=== PATIENT | female | born 1965 | race Caucasian/White ===

== ENCOUNTER → 2016-08-10 | Outpatient (CLI) | payer MEDICARE, OTHER ==
--- NOTE | 2016-08-11 10:21 | ECHOF ---
Referral Reason:SOB R06.02 MEASUREMENTS -------- HEIGHT: 151.1 cm WEIGHT: 122.5 kg BP: 157/77 RVIDd: 2.7 cm (< 3.3) IVSd: 1.0 cm (0.6 - 1.1) LVIDd: 3.6 cm (3.9 - 5.3) LVPWd: 1.1 cm (0.6 - 1.1) IVSs: 1.5 cm LVIDs: 2.6 cm LVPWs: 1.3 cm LA Diam: 3.2 cm (2.7 - 3.8) LAESV Index (A-L): 8.78 ml/m Ao Diam: 3.2 cm (2.0 - 3.7) AV Cusp: 1.3 cm (1.5 - 2.6) LA Diam: 2.6 cm (2.7 - 3.8) MV EXCURSION: 16.356 mm (> 18.000) MV EF SLOPE: 59 mm/s (70 - 150) EPSS: 0.7 cm MV E Red: 0.99 m/s MV DecT: 222 ms MV A Red: 0.65 m/s MV E/A Ratio: 1.52 RAP: 5.00 mmHg RVSP: 22.84 mmHg FINDINGS -------- Sinus rhythm. This was a technically adequate study. The left ventricular size is normal. The right ventricle is normal in size. Normal LA size by volume 22+/-6 ml/m2. The right atrium is normal in size. The aortic valve is trileaflet and appears structurally normal. Mild mitral annular calcification present. Mild tricuspid regurgitation present. Right ventricular systolic pressure is normal at < 35 mmHg. Trace/mild (physiologic) pulmonic regurgitation. The aortic root size is normal. Normal inferior vena cava with normal inspiratory collapse consistent with estimated right atrial pressure of 5 mmHg. There is no pericardial effusion. CONCLUSIONS -------- 1. Sinus rhythm. 2. Right ventricular systolic pressure is normal at < 35 mmHg. 3. Trace/mild (physiologic) pulmonic regurgitation. 4. The aortic root size is normal. 5. Normal inferior vena cava with normal inspiratory collapse consistent with estimated right atrial pressure of 5 mmHg. 6. There is no pericardial effusion. 7. This was a technically adequate study. 8. The left ventricular size is normal. 9. The right ventricle is normal in size. 10. Normal LA size by volume 22+/-6 ml/m2. 11. The right atrium is normal in size. 12. The aortic valve is trileaflet and appears structurally normal. 13. Mild mitral annular calcification present. 14. Mild tricuspid regurgitation present. INVOICE CONTROL CLERK: Hannah Savage RDCS
== END | disposition home or self-care (01) ==
LOC: RADECHMAIN 14:25
PROVIDERS: ATTEND Family Medicine
DX: I08.1 Rheumatic disorders of both mitral and tricuspid valves (principal)
CPT/HCPCS: 93306

== ENCOUNTER 2017-01-31 01:56 | Emergency (ER) | payer MEDICARE, OTHER ==
[2017-01-31] MEDS ORDERED: DIPH,PERTUS(ACELL)TETVAC-LF 0.5 ML VIAL IM ONE (02:17)
--- NOTE | 2017-01-31 02:22 | ED ---
General Adult HPI - General Chief complaint: Wound/Laceration Stated complaint: Foot injury Time Seen by Provider: 01/31/17 01:58 Source: EMS, RN notes reviewed Mode of arrival: EMS Limitations: no limitations - History of Present Illness Initial comments: 51-year-old female presents emergency Department chief complaint of left foot bleeding. Patient states she hit her foot earlier today. Patient has a lot of blood cell she thought she should come in. Patient states that the have feeling to the foot so there is no pain. Patient denies any other injuries from the incident. Patient does not recall her last tetanus.Patient denies any recent fever, chills, shortness of breath, chest pain, back pain, abdominal pain , nausea vomiting, numbness or tingling, dysuria or hematuria, constipation or diarrhea, headaches or visual changes, or any other current symptoms. - Related Data Home Medications Medication Instructions Recorded Confirmed Allopurinol [Zyloprim] 300 mg PO DAILY 10/04/14 01/31/17 Cetirizine HCl [Zyrtec] 5 mg PO DAILY 10/04/14 01/31/17 Cholestyramine (with Sugar) 4 gm PO DAILY 10/04/14 01/31/17 [Questran Packet] Hydrochlorothiazide [Hydrodiuril] 12.5 mg PO HS 10/04/14 01/31/17 Liraglutide [Victoza 2-Raul] 1.2 mg SQ WESA 10/04/14 01/31/17 Omeprazole [PriLOSEC] 20 mg PO BID 10/04/14 01/31/17 Potassium Chloride [K-Tab ER] 30 meq PO QAM 10/04/14 01/31/17 Torsemide [Demadex] 20 mg PO BID 10/04/14 01/31/17 valACYclovir [Valtrex] 500 mg PO TID PRN 10/04/14 01/31/17 Acetaminophen Tab [Tylenol] 500 - 1,000 mg PO Q6HR PRN 08/09/15 01/31/17 Calcium Carbonate [Tums] 100 mg PO TID PRN 08/09/15 01/31/17 Fish Oil/Dha/Epa [Fish Oil 1,200 1 cap PO BID 08/09/15 01/31/17 mg Fish Oil] Glucosamine/Chondr Choi A Sod [Osteo 1 tab PO BID 08/09/15 01/31/17 Bi-Flex Caplet] Linagliptin [Tradjenta] 5 mg PO DAILY 08/09/15 01/31/17 Loperamide [Imodium] 2 mg PO QID PRN 08/09/15 01/31/17 Metoprolol Succinate [Toprol XL] 25 mg PO DAILY 08/09/15 01/31/17 Multivitamins, Thera [Multivitamin 1 tab PO DAILY 08/09/15 01/31/17 (formulary)] Naproxen Sodium [Aleve] 220 mg PO DAILY PRN 08/09/15 01/31/17 HYDROcodone/APAP 5-325MG [[place] 1 tab PO BID PRN 12/10/15 01/31/17 5-325] Levofloxacin [Levaquin] 500 mg PO DAILY 12/10/15 01/31/17 Potassium Chloride [K-Tab ER] 20 meq PO HS 12/10/15 01/31/17 glipiZIDE [Glucotrol] 10 mg PO AC-BID 12/10/15 01/31/17 Allergies Allergy/AdvReac Type Severity Reaction Status Date / Time amoxicillin trihydrate Allergy Rash/Hives Verified 12/10/15 18:04 [From Augmentin] ciprofloxacin [From Cipro] Allergy Rash/Hives Verified 12/10/15 18:04 ciprofloxacin HCl Allergy Rash/Hives Verified 12/10/15 18:04 [From Cipro] Latex, Natural Rubber Allergy Anaphylaxis Verified 12/10/15 18:04 midazolam HCl [From Versed] Allergy very Verified 12/10/15 18:04 combative, disoriented nitrofurantoin Allergy Rash/Hives Verified 12/10/15 18:04 macrocrystalline [From Macrodantin] potassium clavulanate Allergy Rash/Hives Verified 12/10/15 18:04 [From Augmentin] Sulfa (Sulfonamide Allergy Rash/Hives Verified 12/10/15 18:04 Antibiotics) vancomycin Allergy Anaphylaxis Verified 12/10/15 18:04 Beef Containing Products AdvReac Diarrhea Verified 12/10/15 18:04 [Beef] sucralose AdvReac Diarrhea Verified 12/10/15 18:04 [From Splenda (sucralose)] Review of Systems ROS Statement: Those systems with pertinent positive or pertinent negative responses have been documented in the HPI. ROS Other: All systems not noted in ROS Statement are negative. Past Medical History Past Medical History: Asthma, Diabetes Mellitus, GERD/Reflux, Musculoskeletal Disorder, Neurologic Disorder, Pneumonia, Renal Disease, Sleep Apnea/CPAP/BIPAP Additional Past Medical History / Comment(s): 08-09-15 admitted with cellulitis of external nose. other pst medical hx includes: hx. 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 Date of last positivie culture/infection: 01/07/2015 MDRO Source:: esbl [email or web address] right leg Past Surgical History: Back Surgery, Bowel Resection, Orthopedic Surgery Additional Past Surgical History / Comment(s): multiple surgeries for hydrocephalus, urostomy x 2, multiple hip,leg, foot surgeries, ankles fused, [facility] shunt, pt stated back sx was to remove spina bifida growth, egd Past Anesthesia/Blood Transfusion Reactions: No Reported Reaction Past Psychological History: No Psychological Hx Reported Smoking Status: Never smoker Past Alcohol Use History: Occasional Past Drug Use History: None Reported - Past Family History Father Family Medical History: Hypertension Additional Family Medical History / Comment(s): gout, heart murmur, rheumatic fever as child, tia Mother Family Medical History: Cancer, Hypertension Additional Family Medical History / Comment(s): interstitial cystitis, breast cancer x2, diet controlled diabetic, hiatal hernia General Exam - General Exam Comments Initial Comments: General: The patient is awake and alert, in no distress, and does not appear acutely ill. Neck: The neck is supple, there is no tenderness. Cardiovascular: There is a regular rate and rhythm. No murmur, rub or gallop is appreciated. Respiratory: Lungs are clear to auscultation, respirations are non-labored, breath sounds are equal. No wheezes, stridor, rales, or rhonchi. Musculoskeletal: Sensation intact with 2+ pulses. Infection. Range of motion of left knee and left ankle with passive range of motion. Patient does appear to have a laceration to the base of the third fourth and fifth digit to the left toes. No tenderness to touch. There is some bleeding. Neurological: CN II-XII intact, There are no obvious motor or sensory deficits. Coordination appears grossly intact. Speech is normal. Skin: Skin is warm and dry and no rashes or lesions are noted. Psychiatric: Normal mood and affect. Limitations: no limitations Course Vital Signs 01/31/17 01/31/17 01:57 03:06 Temperature 99.2 F 98.7 F Pulse Rate 96 81 Respiratory 20 18 Rate Blood Pressure 168/76 145/67 O2 Sat by Pulse 98 98 Oximetry Procedures - Procedures Initial comment: The skin was anesthetized with 1% lidocaine. The laceration was then cleansed with Betadine and irrigated with normal saline. The wound was inspected, and there was no evidence of injury to deep structures. No foreign body was noted in the wound. A total of 3 skin sutures were placed utilizing 4-0 nylon to individually once every lacerations at the base of the third fourth and fifth toe Medical Decision Making - Medical Decision Making 51-year-old female presents for left foot laceration. At this time 1 sutures placed in each laceration to the third fourth and fifth digit. There is cleaned. Tetanus was updated. We discussed care we discussed follow-up with discussed return parameters all questions. Patient stated she understood and she is given the plan. She'll be discharged. - Radiology Data Radiology results: report reviewed, image reviewed Disposition Clinical Impression: Laceration of toe, left Disposition: HOME SELF-CARE Condition: Stable Instructions: Care For Your Stitches (ED), Laceration (ED) Additional Instructions: Please use medication as discussed. Please follow up with family doctor if symptoms have not improved over the next two days. Please return to the emergency room if your symptoms increase or worsen or for any other concerns. Please return to the emergency room in 8-10 days to have sutures removed. Please leave wound covered for the first 24-48 hours and then leave open to air after that time. Please use clean soap and water to clean the suture area to prevent scabbing over the top of your sutures. Please watch for any signs of infection which may include but not limited to increased pain, swelling, redness , fever or chills. Please return to the emergency room if any signs of infection do occur. Please return to the emergency room for any other concerns or complications. Referrals: Barrington Noble DO [Primary Care Provider] - 1-2 days Time of Disposition: 03:34
[2017-01-31 03:07] VITALS: TEMP 98.7
--- NOTE | 2017-01-31 03:32 | XR ---
EXAM: XR Left Foot Complete, 3 or More Views CLINICAL HISTORY: History of clubfoot with pain. TECHNIQUE: Frontal, lateral and oblique views of the left foot. COMPARISON: None. FINDINGS: Bones/joints: Extensive degenerative changes are seen involving predominantly the tarsal bones. Osteopenia is suggested. It is difficult to assess for an acute fracture in the setting. There is no radiographic evidence of an acute fracture in the setting. No dislocation. Soft tissues: Extensive soft tissue swelling overlies the entire foot. No radiopaque foreign body. IMPRESSION: Extensive degenerative changes are seen involving predominantly the tarsal bones. Osteopenia. It is difficult to assess for an acute fracture in the setting, although there is no definitive evidence of fracture. If an occult fracture suspected, radiographs left foot may be obtained in 10-14 days for follow-up. Extensive soft tissue swelling overlies the entire foot.
[2017-01-31 04:00] VITALS: BP 136/69; PULSE 86; RESP 20
== END 2017-01-31 04:00 | disposition home or self-care (01) ==
LOC: EC 01:56
DX: S91.115A Laceration without foreign body of left lesser toe(s) without damage to nail, initial encounter (principal); Z23 Encounter for immunization; J45.909 Unspecified asthma, uncomplicated; E11.9 Type 2 diabetes mellitus without complications; K21.9 Gastro-esophageal reflux disease without esophagitis; M10.9 Gout, unspecified; Z79.84 Long term (current) use of oral hypoglycemic drugs; Z79.899 Other long term (current) drug therapy; Z88.0 Allergy status to penicillin; Z88.1 Allergy status to other antibiotic agents; Z88.2 Allergy status to sulfonamides; Z91.040 Latex allergy status; Z88.8 Allergy status to other drugs, medicaments and biological substances; Z91.018 Allergy to other foods; W22.8XXA Striking against or struck by other objects, initial encounter
CPT/HCPCS: 12001; 90471; 90715; 99283

== ENCOUNTER 2017-02-23 20:12 | Emergency (ER) | payer MEDICARE, OTHER ==
[2017-02-23 20:23] VITALS: RESP 18
--- NOTE | 2017-02-23 20:39 | ED ---
General Adult HPI - General Chief complaint: Fall Stated complaint: Fall Time Seen by Provider: 02/23/17 20:24 Source: EMS, RN notes reviewed Mode of arrival: EMS Limitations: no limitations - History of Present Illness Initial comments: 51 yo female presents to the ER with cc of fall. Patient was trying to transfer from her scooter to her car at [facility] and she lost her footing and fell. Patient states she just her right arm and landed onto her right knee. Patient states she did not hit her head. There is no lightheadedness or dizziness before the fall. Patient states she just continues to have this discomfort so she thought that she should be evaluated. Patient other symptoms at this time. Patient states the pain is moderate worse to movement or touch. She has some signs of the right knee and right ankle. Patient denies any recent fever, chills, shortness of breath, chest pain, back pain, abdominal pain, nausea vomiting, numbness or tingling, dysuria or hematuria, constipation or diarrhea, headaches or visual changes, or any other current symptoms. - Related Data Home Medications Medication Instructions Recorded Confirmed Allopurinol [Zyloprim] 300 mg PO DAILY 10/04/14 02/23/17 Cetirizine HCl [Zyrtec] 5 mg PO DAILY 10/04/14 02/23/17 Cholestyramine (with Sugar) 4 - 8 gm PO DAILY 10/04/14 02/23/17 [Questran Packet] Liraglutide [Victoza 2-Raul] 1.2 mg SQ DAILY 10/04/14 02/23/17 Omeprazole [PriLOSEC] 20 mg PO BID 10/04/14 02/23/17 Potassium Chloride [K-Tab ER] 30 meq PO QAM 10/04/14 02/23/17 Torsemide [Demadex] 20 mg PO BID 10/04/14 02/23/17 valACYclovir [Valtrex] 500 mg PO TID PRN 10/04/14 02/23/17 Acetaminophen Tab [Tylenol] 500 - 1,000 mg PO Q6HR PRN 08/09/15 02/23/17 Calcium Carbonate [Tums] 100 mg PO TID PRN 08/09/15 02/23/17 Fish Oil/Dha/Epa [Fish Oil 1,200 1 cap PO BID 08/09/15 02/23/17 mg Fish Oil] Glucosamine/Chondr Choi A Sod [Osteo 1 tab PO BID 08/09/15 02/23/17 Bi-Flex Caplet] Linagliptin [Tradjenta] 5 mg PO DAILY 08/09/15 02/23/17 Loperamide [Imodium] 2 mg PO QID PRN 08/09/15 02/23/17 Metoprolol Succinate [Toprol XL] 25 mg PO DAILY 08/09/15 02/23/17 Multivitamins, Thera [Multivitamin 1 tab PO DAILY 08/09/15 02/23/17 (formulary)] Naproxen Sodium [Aleve] 220 mg PO DAILY PRN 08/09/15 02/23/17 HYDROcodone/APAP 5-325MG [[place] 1 tab PO BID PRN 12/10/15 02/23/17 5-325] Levofloxacin [Levaquin] 500 mg PO DAILY PRN 12/10/15 02/23/17 Potassium Chloride [K-Tab ER] 20 meq PO HS 12/10/15 02/23/17 Bumetanide 2 mg PO DAILY 02/23/17 02/23/17 LORazepam [Ativan] 0.25 mg PO BID PRN 02/23/17 02/23/17 Lactobacillus Acidophilus 1 tab PO DAILY 02/23/17 02/23/17 [Acidophilus] glipiZIDE [Glucotrol] 10 mg PO AC-BID 02/23/17 02/23/17 Allergies Allergy/AdvReac Type Severity Reaction Status Date / Time amoxicillin trihydrate Allergy Rash/Hives Verified 02/23/17 20:41 [From Augmentin] ciprofloxacin [From Cipro] Allergy Rash/Hives Verified 02/23/17 20:41 ciprofloxacin HCl Allergy Rash/Hives Verified 02/23/17 20:41 [From Cipro] Latex, Natural Rubber Allergy Anaphylaxis Verified 02/23/17 20:41 midazolam HCl [From Versed] Allergy very Verified 02/23/17 20:41 combative, disoriented nitrofurantoin Allergy Rash/Hives Verified 02/23/17 20:41 macrocrystalline [From Macrodantin] potassium clavulanate Allergy Rash/Hives Verified 02/23/17 20:41 [From Augmentin] Sulfa (Sulfonamide Allergy Rash/Hives Verified 02/23/17 20:41 Antibiotics) vancomycin Allergy Anaphylaxis Verified 02/23/17 20:41 Beef Containing Products AdvReac Diarrhea Verified 02/23/17 20:41 [Beef] sucralose AdvReac Diarrhea Verified 02/23/17 20:41 [From Splenda (sucralose)] Review of Systems ROS Statement: Those systems with pertinent positive or pertinent negative responses have been documented in the HPI. ROS Other: All systems not noted in ROS Statement are negative. Past Medical History Past Medical History: Asthma, Diabetes Mellitus, GERD/Reflux, Musculoskeletal Disorder, Neurologic Disorder, Pneumonia, Renal Disease, Sleep Apnea/CPAP/BIPAP Additional Past Medical History / Comment(s): 08-09-15 admitted with cellulitis of external nose. other pst medical hx includes: hx. 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 Date of last positivie culture/infection: 01/07/2015 MDRO Source:: esbl e.coli right leg Past Surgical History: Back Surgery, Bowel Resection, Orthopedic Surgery Additional Past Surgical History / Comment(s): multiple surgeries for hydrocephalus, urostomy x 2, multiple hip,leg, foot surgeries, ankles fused, VA shunt, pt stated back sx was to remove spina bifida growth, egd Past Anesthesia/Blood Transfusion Reactions: No Reported Reaction Past Psychological History: No Psychological Hx Reported Smoking Status: Never smoker Past Alcohol Use History: Occasional Past Drug Use History: None Reported - Past Family History Father Family Medical History: Hypertension Additional Family Medical History / Comment(s): gout, heart murmur, rheumatic fever as child, tia Mother Family Medical History: Cancer, Hypertension Additional Family Medical History / Comment(s): interstitial cystitis, breast cancer x2, diet controlled diabetic, hiatal hernia General Exam - General Exam Comments Initial Comments: General: The patient is awake and alert, in no distress, and does not appear acutely ill. Neck: The neck is supple, there is no tenderness. Cardiovascular: There is a regular rate and rhythm. No murmur, rub or gallop is appreciated. Respiratory: Lungs are clear to auscultation, respirations are non-labored, breath sounds are equal. No wheezes, stridor, rales, or rhonchi. Musculoskeletal: sensation intact with 2+ pulses throughout the right upper and right lower extremity. Patient's range of motion of the right shoulder. Some tenderness patient right elbow and right wrist. Patient does have good range of motion. Patient has tenderness right knee. Due to chronic maladies patient' s range of motion of the knee and ankle are limited there is some associated right ankle swelling noted. No deformity. Neurological: CN II-XII intact, There are no obvious motor or sensory deficits. Coordination appears grossly intact. Speech is normal. Skin: Skin is warm and dry and no rashes or lesions are noted. Psychiatric: Normal mood and affect. Limitations: no limitations Course Vital Signs 02/23/17 20:17 Temperature 97.9 F Pulse Rate 75 Respiratory 18 Rate Blood Pressure 157/94 O2 Sat by Pulse 98 Oximetry Medical Decision Making - Medical Decision Making 51-year-old female presents emergency department with a chief complaint of right lower extremity pain and right upper extremity pain. This time we will get x-rays of the areas. Patient x-rays are reviewed and negative. This time we discussed return parameters and follow up and patient in agreement with plan. pt will be discharged. - Radiology Data Radiology results: report reviewed, image reviewed Disposition Clinical Impression: Sprain of right elbow, Fall, Right wrist sprain, Right knee sprain Disposition: HOME SELF-CARE Condition: Stable Instructions: Fall Prevention for Older Adults (ED), Elbow Sprain (ED) Additional Instructions: Please use medication as discussed. Please follow up with family doctor if symptoms have not improved over the next two days. Please return to the emergency room if your symptoms increase or worsen or for any other concerns. Referrals: Barrington Noble DO [Primary Care Provider] - 1-2 days Time of Disposition: 21:19
--- NOTE | 2017-02-23 21:04 | XR ---
PROCEDURE: XR wrist complete RT DATE AND TIME: 02/23/2017 8:47 PM REFERRING PHYSICIAN: Melanie Blair CLINICAL INDICATION: PHH, Pain after fall TECHNIQUE: 3 views plus dedicated scaphoid view. COMPARISON: None FINDINGS: There is no fracture or malalignment. The soft tissues are unremarkable. IMPRESSION: NO ACUTE PROCESS.
--- NOTE | 2017-02-23 21:05 | XR ---
PROCEDURE: XR elbow complete RT DATE AND TIME: 02/23/2017 8:49 PM REFERRING PHYSICIAN: Melanie Blair CLINICAL INDICATION: PHH, Pain TECHNIQUE: Department protocol. COMPARISON: None FINDINGS: There are prominent osteophytic spurs at all articulations consistent with advanced degenerative ziegler ges. There is no fracture or malalignment. The soft tissues are unremarkable. IMPRESSION: NO ACUTE PROCESS.
--- NOTE | 2017-02-23 21:07 | XR ---
PROCEDURE: XR ankle complete RT DATE AND TIME: 02/23/2017 8:54 PM REFERRING PHYSICIAN: Melanie Blair CLINICAL INDICATION: PHH, Pain TECHNIQUE: Department protocol. COMPARISON: 12/10/2015 FINDINGS: There is pes planus with multifocal osteoarthritis and with associated architectural distortion. There is no fracture or malalignment. The soft tissues are unremarkable. IMPRESSION: NO ACUTE PROCESS.
--- NOTE | 2017-02-23 21:10 | XR ---
PROCEDURE: XR knee complete RT DATE AND TIME: 02/23/2017 8:59 PM REFERRING PHYSICIAN: Melanie Blair CLINICAL INDICATION: PHH, Pain TECHNIQUE: 3 views. COMPARISON: 12/10/2015 FINDINGS: Is redemonstration of the previously seen markedly-advanced bone on bone osteoarthritis dylan nges with associated architectural distortion, and with medial subluxation at the femoral tibial donnie culation. There is no fracture or malalignment. The soft tissues are unremarkable. IMPRESSION: NO ACUTE PROCESS.
[2017-02-23 21:51] VITALS: BP 165/81; PULSE 84; TEMP 98
== END 2017-02-23 21:50 | disposition home or self-care (01) ==
LOC: EC 20:12
DX: S53.401A Unspecified sprain of right elbow, initial encounter (principal); S63.501A Unspecified sprain of right wrist, initial encounter; S83.91XA Sprain of unspecified site of right knee, initial encounter; J45.909 Unspecified asthma, uncomplicated; E11.9 Type 2 diabetes mellitus without complications; K21.9 Gastro-esophageal reflux disease without esophagitis; Z79.84 Long term (current) use of oral hypoglycemic drugs; Z79.899 Other long term (current) drug therapy; Z88.1 Allergy status to other antibiotic agents; Z88.2 Allergy status to sulfonamides; Z88.0 Allergy status to penicillin; Z91.018 Allergy to other foods; Z91.040 Latex allergy status; Z88.8 Allergy status to other drugs, medicaments and biological substances; W01.10XA Fall on same level from slipping, tripping and stumbling with subsequent striking against unspecified object, initial encounter; Y92.89 Other specified places as the place of occurrence of the external cause
CPT/HCPCS: 99283

== ENCOUNTER → 2019-02-23 | Outpatient (CLI) | payer MEDICARE, OTHER ==
--- NOTE | 2019-02-24 07:21 | US ---
EXAMINATION TYPE: US thyroid st tissue head/neck DATE OF EXAM: 02/23/2019 COMPARISON: NONE CLINICAL HISTORY: M54.82 L NECK PAIN. Patient has atrial ventricular shunt. Order states attention to shunt. Office called, spoke with Shirin, explained that we don't evaluate renny nts with ultrasound at this facility. Shirin spoke with , technologist directed to scan inferior mas toid area at patients area of pain. TECHNIQUE/FINDINGS: Targeted and color and grayscale imaging was performed inferior to the left masto id air cells in the patient's area of neck pain. At this location No solid or cystic mass is evident. No fluid collection is seen. No soft tissue swelling. The patient 's known atrial ventricular shunt is not visualized. IMPRESSION: No suspicious abnormality inferior to the left mastoid air cells in the area of the otoniel ent's pain. The known intraventricular shunt is not seen. Calcifications or discontinuity could be ev aluated with soft tissue neck x-ray. If there is concern for mastoiditis CT of the internal auditory canal could assess for otomastoiditis.
== END | disposition home or self-care (01) ==
LOC: RADUSWWP 16:06
PROVIDERS: ATTEND Family Medicine
DX: M54.2 Cervicalgia (principal)
CPT/HCPCS: 76536

== ENCOUNTER → 2020-01-25 | Outpatient (CLI) | payer MEDICARE, OTHER ==
--- NOTE | 2020-01-31 12:24 | P.ARTDOP ---
Arterial Doppler LOWER EXTREMITY ARTERIAL DOPPLER: DATE OF SERVICE: 01/25/2020 Reason for study: Decreased pulses. Doppler waveforms: Multiphasic but blunted throughout. Pulse volume recording: []. Pressure gradients: Below the knee bilaterally. Ankle-brachial indices: 0.84 on the right and 0.89 on the left. 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
== END | disposition home or self-care (01) ==
LOC: RADUSWWP 12:53
PROVIDERS: ATTEND Podiatrist Foot & Ankle Surgery
DX: I73.9 Peripheral vascular disease, unspecified (principal)
CPT/HCPCS: 93923

== ENCOUNTER → 2020-03-19 | Outpatient (CLI) | payer MEDICARE, OTHER ==
--- NOTE | 2020-03-19 16:29 | CT ---
EXAMINATION TYPE: CT brain wo con DATE OF EXAM: 03/19/2020 COMPARISON: 11/16/2014 INDICATION: eval of shunt DLP: 1133.3 mGycm, Automated exposure control for dose reduction was used. CONTRAST: None CT of the brain is performed utilizing 3 mm thick sections through the posterior fossa and 3 mm thick sections through the remaining calvarium. Study is performed within 24 hours of arrival to the hosp [facility]. No abnormal hyperdensity is present to suggest an acute intracranial hemorrhage. No mass lesion is evident. No acute infarcts are evident. There is an extra-axial collection with moderate impression on the adjacent brain within the left par ietal-occipital region. This was present previously and appears stable. There are some calcifications within this region. There is mild extradural collection along the left frontal and parietal regions better visualized from comparison. Mild extra-axial collection is again evident on the right. These e xtra-axial collections are diminished in density compared to the prior study. Shunt catheters are present. The catheter entering on the left posterior parietal region crosses midl ine with the tip near the right lateral ventricle. The second catheter entering from the posterior la teral right region has tip located near the midline of the suprasellar cistern region. These catheter s are stable in position from comparison. No temporal horn dilatation is evident. There is prominence of the posterior horns lateral ventricles right more so than left which is stable from comparison. Third ventricle is midline without dilatati on. The anterior horns of the lateral ventricles are not dilated. No temporal horn dilatation is evid ent. Paranasal sinuses and mastoid air cells within the [id number] are clear. IMPRESSIONS: 1. Shunt catheter positioning appears stable from comparison of 11/16/2014. 2. Extra-axial collections again evident and stable from comparison. 3. The ventricles and sulci appears stable without dilatation or effacement.
== END | disposition home or self-care (01) ==
LOC: RADCTMAIN 15:23
PROVIDERS: ATTEND Neurological Surgery
DX: R90.89 Other abnormal findings on diagnostic imaging of central nervous system (principal); G91.0 Communicating hydrocephalus; Z98.2 Presence of cerebrospinal fluid drainage device
CPT/HCPCS: 70450

== ENCOUNTER → 2020-05-09 | Outpatient (CLI) | payer MEDICARE, OTHER ==
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
== END | disposition home or self-care (01) ==
LOC: RADBDWWP 12:22
PROVIDERS: ATTEND Family Medicine
DX: M85.80 Other specified disorders of bone density and structure, unspecified site (principal); Z78.0 Asymptomatic menopausal state
CPT/HCPCS: 77080

== ENCOUNTER → 2021-04-18 | Outpatient (CLI) | payer MEDICARE, OTHER ==
[2021-04-18 11:53] LABS: African American GFR (CKD) >90 (>60 ml/min/1.73 sqM); Blood Urea Nitrogen 29 mg/dL (7-17); Non-African American GFR(CKD) >90 (>60 ml/min/1.73 sqM)
--- NOTE | 2021-04-20 17:18 | CT ---
EXAMINATION TYPE: CT abdomen pelvis w con DATE OF EXAM: 04/18/2021 COMPARISON: NONE HISTORY: 55-year-old female History of bowel obstruction. Alternating diarrhea and constipation. TECHNIQUE: Contiguous axial scanning of the abdomen and pelvis following administration of 100 ml Iso omkar 300 IV contrast. Delayed images through the kidneys and coronal/sagittal reconstructions perform ed. CT DLP: 2009.5 mGycm Automated exposure control for dose reduction was used. FINDINGS: Heart normal size without pericardial effusion. Lung bases clear without pleural effusion. Oral contrast seen within the visualized lower esophagus. Liver borderline in size at 17.2 cm. No focal lesion seen. Portal venous system is patent. No biliary ductal dilatation. Gallbladder, adrenal glands, spleen, and pancreas within normal limits. There is a nonobstructive 1.2 cm calculus at the lower pole of the right kidney. There is severe bilateral hydronephrosis. Corresponding overlying cortical thinning. Post surgical changes along the anterior midline abdominal wall. There is a fat-containing umbilical hernia measuring 6.3 x 5.4 x 4.6 cm extending through a 1.5 cm wide abdominal wall defect. There is a diverticulum urostomy with a right lower quadrant ileostomy. The loop of bowel is prominen tly distended with urine as are both ureters. The length of bowel extending across the pull-through i nto the skin surface does not appear abnormally distended. Bladder appears to have been previously resected. Uterus appears retroverted. There is marked pelvic floor relaxation. There is distention of the uterus, distal sigmoid colon, and rectum below the level of the floor the pelvis. Oral contrast has made its way into the right side of the colon. There is o verall moderate stool in the left side of the colon. Some fixation hardware partially visualized within the proximal third shaft of the left femur. There may be bilateral hip dysplasia changes. Accentuated lower lumbar lordosis is demonstrated. IMPRESSION: 1. ORAL CONTRAST HAS MADE ITS WAY INTO THE RIGHT HEMICOLON. THERE IS EVIDENCE OF PRIOR RIGHT-SIDED MIHAELA WEL SURGERY LIKELY TO SUPPLY THE PATIENT'S DIVERTING UROSTOMY WITH RIGHT LOWER QUADRANT ILEOSTOMY DEM ONSTRATED. THERE IS MODERATE STOOL IN THE LEFT SIDE OF THE COLON BUT NO EVIDENCE FOR OBSTRUCTION. WE NOTE A SEVERE PELVIC FLOOR PROLAPSE CONTAINING THE UTERUS WELL THE DISTAL SIGMOID AND RECTUM. T HIS MAY BE CONTRIBUTING TO THE PATIENT'S BOWEL CHANGES. 2. SEVERE BILATERAL HYDRONEPHROSIS. CORTICAL THINNING COMPATIBLE WITH THE DEVELOPMENT OF ASSOCIATED C HRONIC KIDNEY DISEASE. GIVEN THE BILATERAL HYDROURETER AND PROMINENT URINE DISTENTION OF THE BOWEL LO OP PRIOR TO THE UROSTOMY, CONSIDER A STRICTURE ALONG THE COURSE OF THE URINARY TRACT. 3. INCIDENTAL NONOBSTRUCTIVE 1.2 CM RIGHT LOWER POLE RENAL CALCULUS. 4. FATTY UMBILICAL HERNIA MEASURING 6.3 CM WIDE.
== END | disposition home or self-care (01) ==
LOC: RADCTMAIN 11:01
PROVIDERS: ATTEND Family Medicine
DX: N20.0 Calculus of kidney (principal); N18.9 Chronic kidney disease, unspecified; K42.9 Umbilical hernia without obstruction or gangrene
CPT/HCPCS: 82565; 84520; 74177; 36415; Q9967 ×2

== ENCOUNTER → 2021-08-07 | Outpatient (CLI) | payer MEDICARE, OTHER ==
[2021-08-07 23:56] LABS: ALT 13 U/L (8-44); AST 17 U/L (13-35); African American GFR (CKD) 114.4 (60.0-200.0); Albumin 3.7 g/dL (3.8-4.9); Albumin/Globulin Ratio 0.92 (1.60-3.17); Alkaline Phosphatase 165 U/L (41-126); BUN/Creat Ratio 31.06 Ratio (12.00-20.00); Blood Urea Nitrogen 21.4 mg/dL (9.0-27.0); Calcium 9.4 mg/dL (8.7-10.3); Carbon Dioxide 24.7 mmol/L (20.0-27.5); Chloride 105 mmol/L (96-109); Chol/HDL Ratio 3.41 Ratio; Glucose 77 mg/dL (70-110); LDL Cholesterol,Calculated 85.6 mg/dL (0.0-131.0); Non-African American GFR(CKD) 98.7 (60.0-200.0); Potassium 3.8 mmol/L (3.5-5.5); Sodium 142 mmol/L (135-145); Total Protein 7.7 g/dL (6.2-8.2)
--- NOTE | 2021-08-08 12:39 | ECHOF ---
Referral Reason:R60.9 Edema MEASUREMENTS -------- HEIGHT: 132.1 cm WEIGHT: 127.0 kg BP: RVIDd: 2.4 cm (< 3.3) IVSd: 1.2 cm (0.6 - 1.1) LVIDd: 4.4 cm (3.9 - 5.3) LVPWd: 1.1 cm (0.6 - 1.1) IVSs: 1.8 cm LVIDs: 3.3 cm LVPWs: 1.4 cm LA Diam: 4.0 cm (2.7 - 3.8) LAESV Index (A-L): 17.65 ml/m Ao Diam: 3.1 cm (2.0 - 3.7) AV Cusp: 1.4 cm (1.5 - 2.6) MV EXCURSION: 16.721 mm (> 18.000) MV EF SLOPE: 52 mm/s (70 - 150) EPSS: 0.2 cm MV E Red: 0.62 m/s MV DecT: 184 ms MV A Red: 0.63 m/s MV E/A Ratio: 0.99 RAP: 5.00 mmHg RVSP: 26.18 mmHg FINDINGS -------- Sinus rhythm. This was a technically adequate study. Morbid Obesity The left ventricular size is normal. There is borderline concentric left ventricular hypertrophy. Overall left ventricular systolic function is low-normal with, an EF between 50 - 55 %. The diasto lic filling pattern is normal for the age of the patient 9.39. The right ventricle is normal in size. Normal LA size by volume 22+/-6 ml/m2. The right atrial size is normal. There is mild aortic valve sclerosis. Mild mitral annular calcification present. Mild mitral regurgitation is present. The tricuspid valve appears structurally normal. Mild tricuspid regurgitation present. Right vent ricular systolic pressure is normal at < 35 mmHg. The right ventricular systolic pressure, as measu red by Doppler, is 26.18mmHg. There is no pulmonic regurgitation present. The aortic root size is normal. There is no pericardial effusion. CONCLUSIONS -------- 1. Morbid Obesity 2. There is borderline concentric left ventricular hypertrophy. 3. Overall left ventricular systolic function is low-normal with, an EF between 50 - 55 %. 4. There is mild aortic valve sclerosis. 5. Mild mitral regurgitation is present. 6. There is no pericardial effusion. HEALTH CARE MARKETING MANAGER: Radha Whitt RDCS
== END | disposition home or self-care (01) ==
LOC: RADECHMAIN 13:48
PROVIDERS: ATTEND Internal Medicine Nephrology
DX: E11.65 Type 2 diabetes mellitus with hyperglycemia (principal); E66.01 Morbid (severe) obesity due to excess calories; I08.0 Rheumatic disorders of both mitral and aortic valves; E55.9 Vitamin D deficiency, unspecified
CPT/HCPCS: 80053; 80061; 82306; 83036; 93306

== ENCOUNTER → 2021-09-11 | Outpatient (CLI) | payer MEDICARE, OTHER ==
--- NOTE | 2021-09-11 16:26 | NM ---
EXAMINATION TYPE: NM renal flow and function DATE OF EXAM: 09/11/2021 COMPARISON: NONE HISTORY: Renal flow and function Following administration of 8.8 mCi Tc99m MAG3. Immediate images post injection. FINDINGS: Left: 46.4 %. Right: 53.6 %. Max renal flow left: 28 minutes. Max renal flow right: 53.6 minutes. Satisfactory accumulation of radiotracer within both renal collecting systems. T 1/2 left: Undeterminable minutes. T 1/2 right: Undeterminable minutes. FINDINGS: Abnormal renal excretion curves bilaterally. IMPRESSION: 1. Nearly symmetric excretion with 46% left 54% on right. 2. Abnormal renal excretion curves bilateral.
== END | disposition home or self-care (01) ==
LOC: RADNMMAIN 13:01
PROVIDERS: ATTEND Urology
DX: R94.4 Abnormal results of kidney function studies (principal)
CPT/HCPCS: 78707; A9562

== ENCOUNTER → 2021-12-24 | Outpatient (CLI) | payer MEDICARE, OTHER | END | disposition home or self-care (01) | LOC: LABWHC1 16:03 | PROVIDERS: ATTEND Family Medicine | DX: E11.65 Type 2 diabetes mellitus with hyperglycemia (principal) | CPT/HCPCS: 36415; 83036 ==

== ENCOUNTER 2022-04-23 02:53 | Inpatient (IN) | payer MEDICARE, OTHER ==
[2022-04-23] MEDS ORDERED: SODIUM CHLORIDE 0.9% 1,000 ML IV STA (03:29)
[2022-04-23 04:14] LABS: ALT 20 U/L (4-34); AST 21 U/L (14-36); African American GFR (CKD) >90 (>60 ml/min/1.73 sqM); Albumin 3.6 g/dL (3.5-5.0); Alkaline Phosphatase 140 U/L (38-126); Anion Gap 12 mmol/L; Blood Urea Nitrogen 23 mg/dL (7-17); Calcium 8.5 mg/dL (8.4-10.2); Carbon Dioxide 17 mmol/L (22-30); Chloride 111 mmol/L (98-107); Glucose 132 mg/dL (74-99); Non-African American GFR(CKD) >90 (>60 ml/min/1.73 sqM); Potassium 4.3 mmol/L (3.5-5.1); Sodium 140 mmol/L (137-145); Total Bilirubin 0.4 mg/dL (0.2-1.3); Total Protein 7.1 g/dL (6.3-8.2)
--- NOTE | 2022-04-23 04:19 | ED ---
General Adult HPI - General Chief complaint: Nausea/Vomiting/Diarrhea Stated complaint: Dehydration Time Seen by Provider: 04/23/22 02:55 Source: patient, EMS, RN notes reviewed, old records reviewed Mode of arrival: EMS Limitations: no limitations - History of Present Illness Initial comments: 56-year-old female presenting for evaluation of dehydration, diarrhea and current UTI. Patient has history of urostomy and is currently taking Levaquin for urinary tract infection. She developed some diarrhea and has generally not felt well. No vomiting. No fever. - Related Data Home Medications Medication Instructions Recorded Confirmed Cetirizine HCl [Zyrtec] 5 mg PO DAILY 10/04/14 11/09/17 Cholestyramine (with Sugar) 4 - 8 gm PO DAILY 10/04/14 11/09/17 [Questran Packet] Liraglutide [Victoza 2-Raul] 1.2 mg SQ DAILY 10/04/14 11/09/17 Omeprazole [PriLOSEC] 20 mg PO BID 10/04/14 11/09/17 Potassium Chloride [K-Tab ER] 30 meq PO QAM 10/04/14 11/09/17 Torsemide [Demadex] 20 mg PO BID 10/04/14 11/09/17 allopurinoL [Zyloprim] 300 mg PO DAILY 10/04/14 11/09/17 Acetaminophen Tab [Tylenol] 500 - 1,000 mg PO Q6HR PRN 08/09/15 11/09/17 Calcium Carbonate [Tums] 100 mg PO TID PRN 08/09/15 11/09/17 Fish Oil/Dha/Epa [Fish Oil 1,200 1 cap PO BID 08/09/15 11/09/17 mg Fish Oil] Glucosamine/Chondr Choi A Sod [Osteo 1 tab PO BID 08/09/15 11/09/17 Bi-Flex Caplet] Linagliptin [Tradjenta] 5 mg PO DAILY 08/09/15 11/09/17 Loperamide [Imodium] 2 mg PO QID PRN 08/09/15 11/09/17 Metoprolol Succinate [Toprol XL] 25 mg PO DAILY 08/09/15 11/09/17 Multivitamins, Thera [Multivitamin 1 tab PO DAILY 08/09/15 11/09/17 (formulary)] Naproxen Sodium [Aleve] 220 mg PO DAILY PRN 08/09/15 11/09/17 HYDROcodone/APAP 5-325MG [[place] 1 tab PO BID PRN 12/10/15 11/09/17 5-325] Potassium Chloride [K-Tab ER] 20 meq PO HS 12/10/15 11/09/17 Bumetanide 2 mg PO DAILY 02/23/17 11/09/17 Lactobacillus Acidophilus 1 tab PO DAILY 02/23/17 11/09/17 [Acidophilus] glipiZIDE [Glucotrol] 10 mg PO AC-BID 02/23/17 11/09/17 Allergies Allergy/AdvReac Type Severity Reaction Status Date / Time amoxicillin trihydrate Allergy Rash/Hives Verified 11/09/17 14:45 [From Augmentin] ciprofloxacin [From Cipro] Allergy Rash/Hives Verified 11/09/17 14:45 ciprofloxacin HCl Allergy Rash/Hives Verified 11/09/17 14:45 [From Cipro] Latex, Natural Rubber Allergy Anaphylaxis Verified 11/09/17 14:45 midazolam HCl [From Versed] Allergy very Verified 11/09/17 14:45 combative, disoriented nitrofurantoin Allergy Rash/Hives Verified 11/09/17 14:45 macrocrystalline [From Macrodantin] potassium clavulanate Allergy Rash/Hives Verified 11/09/17 14:45 [From Augmentin] Sulfa (Sulfonamide Allergy Rash/Hives Verified 11/09/17 14:45 Antibiotics) vancomycin Allergy Anaphylaxis Verified 11/09/17 14:45 Beef Containing Products AdvReac Diarrhea Verified 11/09/17 14:45 [Beef] sucralose AdvReac Diarrhea Verified 11/09/17 14:45 [From Splenda (sucralose)] Review of Systems ROS Statement: Those systems with pertinent positive or pertinent negative responses have been documented in the HPI. ROS Other: All systems not noted in ROS Statement are negative. Past Medical History Past Medical History: Asthma, Diabetes Mellitus, GERD/Reflux, Musculoskeletal Disorder, Neurologic Disorder, Pneumonia, Renal Disease, Sleep Apnea/CPAP/BIPAP Additional Past Medical History / Comment(s): 08-09-15 admitted with cellulitis of external nose. other pst medical hx includes: hx. 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, MRSA Date of last positivie culture/infection: 07/07/21 MRSA 01/07/15 ESBL MDRO Source:: MRSA BUTTOCK, ESBL LEG Past Surgical History: Back Surgery, Bowel Resection, Orthopedic Surgery Additional Past Surgical History / Comment(s): multiple surgeries for hy drocephalus, urostomy x 2, multiple hip,leg, foot surgeries, ankles fused, [facility] shunt, pt stated back sx was to remove spina bifida growth, egd Past Anesthesia/Blood Transfusion Reactions: No Reported Reaction Past Psychological History: No Psychological Hx Reported Additional Psychological History / Comment(s): pt lives alone at [facility],gets around by w/ able to stand and pivot and drives. does have visiting nurses wed-,wednesday. Past Alcohol Use History: Occasional Past Drug Use History: None Reported - Past Family History Father Family Medical History: Hypertension Additional Family Medical History / Comment(s): gout, heart murmur, rheumatic fever as child, tia Mother Family Medical History: Cancer, Hypertension Additional Family Medical History / Comment(s): interstitial cystitis, breast cancer x2, diet controlled diabetic, hiatal hernia General Exam Limitations: no limitations General appearance: alert, in no apparent distress Head exam: Present: atraumatic, normocephalic Eye exam: Present: normal appearance, PERRL ENT exam: Present: mucous membranes dry Neck exam: Present: normal inspection. Absent: tenderness, meningismus Respiratory exam: Present: normal lung sounds bilaterally. Absent: respiratory distress, wheezes Cardiovascular Exam: Present: regular rate, normal rhythm GI/Abdominal exam: Present: soft. Absent: distended, tenderness, guarding Neurological exam: Present: alert Psychiatric exam: Present: normal affect, normal mood Skin exam: Present: warm, dry, intact Course Vital Signs 04/23/22 03:05 Temperature 98.2 F Pulse Rate 76 Respiratory 16 Rate Blood Pressure 115/74 O2 Sat by Pulse 100 Oximetry Medical Decision Making - Medical Decision Making 56 yo female with urinary tract infection, being treated with Levaquin. Previous urine cultures do indicate that she had both E. coli and MRSA. These were drug-resistant, patient started on ceftriaxone and clindamycin in the emergency department she has anaphylactic reaction to vancomycin. Urinalysis suggestive of persistent UTI despite oral antibiotics. She will be admitted to the hospital awaiting urine culture, blood culture results. Continued on IV fluids and IV antibiotics. - Lab Data Result diagrams: 04/23/22 03:44 04/23/22 03:44 Lab Results 04/23/22 04/23/22 04/23/22 Range/Units 03:44 03:44 03:44 WBC 5.0 (3.8-10.6) k/uL RBC 4.16 (3.80-5.40) m/uL Hgb 12.5 (11.4-16.0) gm/dL Hct 38.8 (34.0-46.0) % MCV 93.3 (80.0-100.0) fL MCH 30.1 (25.0-35.0) pg MCHC 32.2 (31.0-37.0) g/dL RDW 16.4 H (11.5-15.5) % Plt Count 222 (150-450) k/uL MPV 9.1 Neutrophils % 50 % Lymphocytes % 40 % Monocytes % 7 % Eosinophils % 0 % Basophils % 1 % Neutrophils # 2.5 (1.3-7.7) k/uL Lymphocytes # 2.0 (1.0-4.8) k/uL Monocytes # 0.4 (0-1.0) k/uL Eosinophils # 0.0 (0-0.7) k/uL Basophils # 0.0 (0-0.2) k/uL Hypochromasia Slight Anisocytosis Slight Sodium 140 (137-145) mmol/L Potassium 4.3 (3.5-5.1) mmol/L Chloride 111 H (98-107) mmol/L Carbon Dioxide 17 L (22-30) mmol/L Anion Gap 12 mmol/L BUN 23 H (7-17) mg/dL Creatinine 0.71 (0.52-1.04) mg/dL Est GFR (CKD-EPI)AfAm >90 (>60 ml/min/1.73 sqM) Est GFR (CKD-EPI)NonAf >90 (>60 ml/min/1.73 sqM) Glucose 132 H (74-99) mg/dL Calcium 8.5 (8.4-10.2) mg/dL Total Bilirubin 0.4 (0.2-1.3) mg/dL AST 21 (14-36) U/L ALT 20 (4-34) U/L Alkaline Phosphatase 140 H (38-126) U/L Total Protein 7.1 (6.3-8.2) g/dL Albumin 3.6 (3.5-5.0) g/dL Urine Color Yellow Urine Appearance Turbid H (Clear) Urine pH 7.0 (5.0-8.0) Ur Specific [place] 1.017 (1.001-1.035) Urine Protein 1+ H (Negative) Urine Glucose (UA) Negative (Negative) Urine Ketones Negative (Negative) Urine Blood Moderate H (Negative) Urine Nitrite Positive H (Negative) Urine Bilirubin Negative (Negative) Urine Urobilinogen <2.0 (<2.0) mg/dL Ur Leukocyte Esterase Large H (Negative) Urine RBC 19 H (0-5) /hpf Urine WBC >182 H (0-5) /hpf Urine WBC Clumps Many H (None) /hpf Urine Bacteria Few H (None) /hpf Disposition Clinical Impression: Dehydration, UTI (urinary tract infection) Disposition: ADMITTED IP TO THIS HOSP Condition: Stable Is patient prescribed a controlled substance at d/c from ED?: No Referrals: Barrington Noble DO [Primary Care Provider] - 1-2 days Time of Disposition: 04:50
[2022-04-23 04:20] LABS: Anisocytosis Slight; Basophils % (A) 1 %; Eosinophils % (A) 0 %; HCT 38.8 % (34.0-46.0); HGB 12.5 gm/dL (11.4-16.0); Hypochromasia Slight; Lymphocytes % (A) 40 %; MCH 30.1 pg (25.0-35.0); MCHC 32.2 g/dL (31.0-37.0); MCV 93.3 fL (80.0-100.0); Mean Platelet Volume 9.1; Monocytes # (A) 0.4 k/uL (0-1.0); Monocytes % (A) 7 %; Neutrophils # (A) 2.5 k/uL (1.3-7.7); Neutrophils % (A) 50 %; Platelet Count 222 k/uL (150-450); RBC 4.16 m/uL (3.80-5.40); RDW 16.4 % (11.5-15.5)
[2022-04-23 04:21] LABS: Appearance,Urine Turbid (Clear); Bacteria,Urine Few /hpf; Bilirubin,Urine Negative (Negative); Blood,Urine Moderate (Negative); Color,Urine Yellow; Glucose,Urine (UA) Negative (Negative); Ketones,Urine Negative (Negative); Leukocyte Esterase,Urine Large (Negative); Nitrite,Urine Positive (Negative); Protein,Urine 1+ (Negative); RBC,Urine 19 /hpf (0-5); Specific Gravity,Urine 1.017 (1.001-1.035); Urobilinogen,Urine <2.0 mg/dL (<2.0); WBC,Urine >182 /hpf (0-5)
[2022-04-23] MEDS ORDERED: cefTRIAXone IN SWFI 1,000 MG/10 ML SYRINGE IVP STA (04:34)
[2022-04-23] MEDS ORDERED: CLINDAMYCIN 600 MG in DEXTROSE 5% IN WATER 50 ML IVPB STA ×2 (04:35)
[2022-04-23] MEDS ORDERED: NALOXONE 0.4 MG/ML 1 ML VIAL IV PRN (04:47)
[2022-04-23] MEDS: SODIUM CHLORIDE 0.9% 1,000 ML IV SCH ×2 (05:14→13:40)
[2022-04-23 07:09] LABS: Glucose,Whole Blood 54 mg/dL (70-110)
[2022-04-23 07:33] LABS: Glucose,Whole Blood 57 mg/dL (70-110)
[2022-04-23 07:58] LABS: Glucose,Whole Blood 75 mg/dL (70-110)
[2022-04-23] MEDS ORDERED: DEXTROSE 50% SYRINGE 50 ML IVP PRN ×2 (10:06)
[2022-04-23] MEDS ORDERED: NON FORMULARY DRUG (Fish Oil/Dha/Epa [Fish Oil 1,200 Mg Fish Oil] 1 EACH Capsule) PO SCH (10:15)
[2022-04-23] MEDS ORDERED: NON FORMULARY DRUG (Cranberry Fruit Extract [Cranberry] 500 MG Tablet) PO SCH (10:15)
[2022-04-23] MEDS ORDERED: NON FORMULARY DRUG (Liraglutide [Victoza 2-Pak] 0.6 MG/0.1 ML Ml) SQ SCH (10:15)
[2022-04-23] MEDS ORDERED: NON FORMULARY DRUG (Glucosamine/Chondr Su A Sod [Osteo Bi-Flex Caplet] 1 EACH Tablet) PO SCH (10:15)
[2022-04-23] MEDS ORDERED: INSULIN DETEMIR (LEVEMIR) 100 UNIT/ML SYR SQ SCH (10:30)
[2022-04-23] MEDS: NON FORMULARY DRUG (Methenamine Hippurate [Methenamine Hippurate] 1 GM Tablet) PO SCH ×2 (11:41→21:17)
[2022-04-23] MEDS: NYSTATIN 100,000UNIT/GM CREAM 30 GM TUBE TOPICAL SCH (11:49)
[2022-04-23] MEDS: LORATADINE 10 MG TAB PO SCH (11:50)
[2022-04-23] MEDS: allopurinoL 300 MG TAB PO SCH (11:50)
[2022-04-23] MEDS: MULTIVITAMINS, THERA 1 EACH TAB PO SCH (11:50)
[2022-04-23] MEDS: AMMONIUM LACTATE 12% CREAM 140 GM TUBE TOPICAL SCH (11:50)
[2022-04-23] MEDS: LACTOBACILLUS ACIDOPH & BULGAR 1 EACH PACKET PO SCH (11:50)
[2022-04-23] MEDS: PANTOPRAZOLE 40 MG TABLET PO SCH (11:51)
[2022-04-23 11:55] LABS: Glucose,Whole Blood 103 mg/dL (70-110)
[2022-04-23] MEDS ORDERED: INSULIN ASPART (NovoLOG) 100 UNIT/ML VIAL SQ SCH (12:30)
--- NOTE | 2022-04-23 14:23 | P.HPIM ---
History of Present Illness H&P Date: 04/23/22 This is a pleasant 56-year-old female who recently presented to the emergency department feeling dehydrated and having increased diarrhea and recurrent urinary tract infections. Patient reports she has a urostomy and had been maintained on Levaquin for the past 10 days and was seen and evaluated in an outpatient clinic and given this and instructed to go to the ER although patient refused as she reports she was feeling slightly better from taking antibiotics. Patient reports she has frequent UTIs and follows with Dr. Reynolds in the outpatient setting. Patient has a past medical history of asthma, diabetes mellitus, insulin-dependent, GERD, musculoskeletal disorder, neurologic disord er, and sleep apnea with CPAP, spina bifida and hydrocephalus with Sapphire I malformation history. Patient has had recurrent infections and ESBL along with MRSA of her buttock and leg regions. Patient reports she is wheelchair-bound and lives at home alone and has visiting nurses 4 days weekly in the home. Will consult infectious disease and appreciate input and recommendations this patient does have drug ALLERGIES to antibiotics and has had multiple recurrent infections. Urine cultures have been sent and pending at this time. Labs on admission reveal no white blood count of 5.0, hemoglobin stable at 12.5, sodium is 140, potassium 4.3, BUN 23, creatinine 0.71. Patient was admitted for IV antibiotics and urinary tract infection. Review Of Systems: Constitutional: No fever, no chills, no night sweats. No weight change. Reports increased weakness, fatigue or lethargy. No daytime sleepiness. EENT: No headache. No blurred vision or double vision, no loss of vision. No loss of Hearing, no ringing in the ears, no dizziness. No nasal drainage or congestion. No epistaxis. No sore throat. Lungs: No shortness of breath, cough, no sputum production. No wheezing. Cardiovascular: No chest pain, no lower extremity edema. No palpitations. No paroxysmal nocturnal dyspnea. No orthopnea. No lightheadedness or dizziness. No syncopal episodes. Abdominal: No abdominal pain. No nausea, vomiting. No diarrhea. No constipation. No bloody or tarry stools.. No loss of appetite. Genitourinary: Reports dysuria, increased frequency, urgency. No urinary retention. Reports thick dark urine Musculoskeletal: No myalgias. No muscle weakness, no gait dysfunction, no frequent falls. No back pain. No neck pain. Integumentary: No wounds, no lesions. No rash or pruritus. No unusual bruising. No change in hair or nails. Neurologic: No aphasia. No facial droop. No change in mentation. No head injury. No headache. No paralysis. No paresthesia. Psychiatric: No depression. No anxiety. No mood swings. Endocrine: No abnormal blood sugars. No weight change. No excessive sweating or thirst. No cold intolerance. PHYSICAL EXAMINATION: GENERAL: The patient is alert and oriented x4, Well developed, well nourished. Wheelchair-bound, obese HEENT: Pupils are round and equally reacting to light. EOMI. no scleral icterus. No conjunctival pallor. Normocephalic, atraumatic. No pharyngeal erythema. No thyromegaly. CARDIOVASCULAR: S1 and S2 muffled PULMONARY: diminished breath sounds bilaterally with no wheezing or rhonchi noted. ABDOMEN: soft. Nontender on exam. obese. non-distended, normoactive bowel sounds. No palpable organomegaly. MUSCULOSKELETAL: No joint swelling or deformity. EXTREMITIES: No cyanosis, clubbing, or pedal edema. NEUROLOGICAL: Gross neurological examination did not reveal any focal deficits. SKIN: No rashes. Assessment: Dehydration, secondary to increased diarrhea Diarrhea, possibly gastritis Acute urinary tract infection, present on admission with failed outpatient therapy Past history of MRSA and ESBL of the wounds recurrent urinary tract infections Asthma history, not in exacerbation Diabetes mellitus, type II, insulin-dependent Gastroesophageal reflux disease Musculoskeletal disorder History of spina bifida with hydrocephalus Sapphire I malformation Chronic renal disease Sleep apnea with a CPAP GI prophylaxis DVT prophylaxis Full code Plan: Recommend to continue with current medications and management and will consult infectious disease and appreciate input and recommendations as patient has multiple drug ALLERGIES and has failed outpatient therapy was currently on Levaquin having worsening symptoms. Patient had been going to a clinic and normally follows with Dr. Reynolds in the outpatient setting although unable to get an appointment. Patient is wheelchair-bound and has visiting nurses 4 times weekly. Patient also with a urostomy and has recurrent frequent UTIs. Patient with diabetes recommend Accu-Cheks before meals and at bedtime and will resume home medications. Patient also chronically takes torsemide and will resume and follow-up with repeat labs. Patient with frequent episodes of diarrhea being on antibiotics will obtain a C. diff. Due to multiple complex medical issues, prognosis is guarded. Further recommendations to follow based on the clinical course of the patient. The impression and plan of care has been dictated by Shefali Mccarty, nurse practitioner as directed. Dr. Keny MD I have performed a history and examination and MDM of this patient, discussed the same with the dictator, and agree with the dictator's assessment and plan as written ,documented as a scribe. Based on total visit time, I have performed more than 50% of the visit. Any additional findings or plans will be noted. Past Medical History Past Medical History: Asthma, Diabetes Mellitus, GERD/Reflux, Musculoskeletal Disorder, Neurologic Disorder, Pneumonia, Renal Disease, Sleep Apnea/CPAP/BIPAP Additional Past Medical History / Comment(s): 08-09-15 admitted with cellulitis of external nose. other pst medical hx includes: hx. 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, MRSA Date of last positivie culture/infection: 07/07/21 MRSA 01/07/15 ESBL MDRO Source:: MRSA BUTTOCK, ESBL LEG Past Surgical History: Back Surgery, Bowel Resection, Orthopedic Surgery Additional Past Surgical History / Comment(s): multiple surgeries for hydrocephalus, urostomy x 2, multiple hip,leg, foot surgeries, ankles fused, [facility] shunt, pt stated back sx was to remove spina bifida growth, egd Past Anesthesia/Blood Transfusion Reactions: No Reported Reaction Past Psychological History: No Psychological Hx Reported Additional Psychological History / Comment(s): pt lives alone at [facility],gets around by w/ able to stand and pivot and drives. does have visiting nurses wed-,wednesday. Smoking Status: Never smoker Past Alcohol Use History: None Reported Past Drug Use History: None Reported - Past Family History Father Family Medical History: Hypertension Additional Family Medical History / Comment(s): gout, heart murmur, rheumatic fever as child, tia Mother Family Medical History: Cancer, Hypertension Additional Family Medical History / Comment(s): interstitial cystitis, breast cancer x2, diet controlled diabetic, hiatal hernia Medications and Allergies Home Medications Medication Instructions Recorded Confirmed Type Cetirizine HCl [Zyrtec] 5 mg PO DAILY 10/04/14 04/23/22 History Cholestyramine (with Sugar) 4 - 8 gm PO DIRECTED 10/04/14 04/23/22 History [Questran Packet] Liraglutide [Victoza 2-Raul] 1.8 mg SQ DAILY 10/04/14 04/23/22 History Omeprazole [PriLOSEC] 20 mg PO DAILY 10/04/14 04/23/22 History Torsemide [Demadex] 60 mg PO BID 10/04/14 04/23/22 History allopurinoL [Zyloprim] 300 mg PO DAILY 10/04/14 04/23/22 History Glucosamine/Chondr Choi A Sod [Osteo 1 tab PO DAILY 08/09/15 04/23/22 History Bi-Flex Caplet] Loperamide [Imodium] 1 - 2 mg PO QID PRN 08/09/15 04/23/22 History Metoprolol Succinate [Toprol XL] 25 mg PO HS 08/09/15 04/23/22 History glipiZIDE [Glucotrol] 1.67 - 5 mg PO DAILY PRN 02/23/17 04/23/22 History Ammonium Lactate Cream [Lac-Hydrin 1 applic TOPICAL BID 04/23/22 04/23/22 History 12% Cream] Azithromycin [Zithromax] See Taper PO DIRECTED 04/23/22 04/23/22 History Cranberry Fruit Extract [Cranberry] 500 mg PO DAILY 04/23/22 04/23/22 History Fish Oil/Dha/Epa [Fish Oil 1,200 1 cap PO DAILY 04/23/22 04/23/22 History mg Fish Oil] Insulin Degludec [Tresiba 36 units SQ DAILY 04/23/22 04/23/22 History Flextouch U-100 Pen] Lactobacillus Acidophilus 1 tab PO DAILY 04/23/22 04/23/22 History [Acidophilus] Methenamine Hippurate 1 gm PO BID 04/23/22 04/23/22 History Multivit with Calcium,Iron,Min 1 tab PO DAILY 04/23/22 04/23/22 History [Women's Multivitamin] Nystatin 100,000Unit/gm Cream 1 applic TOPICAL BID 04/23/22 04/23/22 History [Mycostatin Cream] Potassium Chloride [Klor-Con M20] 60 meq PO DIRECTED 04/23/22 04/23/22 History Potassium Chloride [Klor-Con M20] 80 meq PO DIRECTED 04/23/22 04/23/22 History Torsemide [Demadex] 20 mg PO PC-LUNCH 04/23/22 04/23/22 History levoFLOXacin 500 mg PO DAILY 04/23/22 04/23/22 History Allergies Allergy/AdvReac Type Severity Reaction Status Date / Time amoxicillin trihydrate Allergy Rash/Hives Verified 04/23/22 08:05 [From Augmentin] banana Allergy Unknown Verified 04/23/22 08:05 chestnut Allergy Unknown Verified 04/23/22 08:05 ciprofloxacin [From Cipro] Allergy Rash/Hives Verified 04/23/22 08:05 ciprofloxacin HCl Allergy Rash/Hives Verified 04/23/22 08:05 [From Cipro] kiwi Allergy Unknown Verified 04/23/22 08:05 Latex, Natural Rubber Allergy Anaphylaxis Verified 04/23/22 08:05 methylprednisolone Allergy Rash/Hives Verified 04/23/22 08:30 [From Solu-Medrol] nitrofurantoin Allergy Rash/Hives Verified 04/23/22 08:05 macrocrystalline [From Macrodantin] potassium clavulanate Allergy Rash/Hives Verified 04/23/22 08:05 [From Augmentin] Sulfa (Sulfonamide Allergy Rash/Hives Verified 04/23/22 08:05 Antibiotics) vancomycin Allergy Anaphylaxis Verified 04/23/22 08:05 Beef Containing Products AdvReac Diarrhea Verified 04/23/22 08:05 [Beef] midazolam HCl [From Versed] AdvReac very Verified 04/23/22 08:05 combative, disoriented sucralose AdvReac Diarrhea Verified 04/23/22 08:05 [From Splenda (sucralose)] callagen Allergy Rash/Hives Uncoded 04/23/22 08:30 Physical Exam Vitals: Vital Signs Temp Pulse Resp BP BP Pulse Ox 04/23/22 06:04 98.2 F 16 124/78 99 04/23/22 03:05 98.2 F 76 16 115/74 100 Intake and Output 04/22/22 04/23/2222 22:59 06:59 14:59 Intake Total 100 Balance 100 Intake: Oral 100 Other: Weight 84 kg Results CBC & Chem 7: 04/23/22 03:44 04/23/22 03:44 Labs: Abnormal Lab Results - Last 24 Hours (Table) 04/23/22 04/23/22 04/23/22 Range/Units 03:44 03:44 03:44 RDW 16.4 H (11.5-15.5) % Chloride 111 H (98-107) mmol/L Carbon Dioxide 17 L (22-30) mmol/L BUN 23 H (7-17) mg/dL Glucose 132 H (74-99) mg/dL POC Glucose (mg/dL) (70-110) mg/dL Alkaline Phosphatase 140 H (38-126) U/L Urine Appearance Turbid H (Clear) Urine Protein 1+ H (Negative) Urine Blood Moderate H (Negative) Urine Nitrite Positive H (Negative) Ur Leukocyte Esterase Large H (Negative) Urine RBC 19 H (0-5) /hpf Urine WBC >182 H (0-5) /hpf Urine WBC Clumps Many H (None) /hpf Urine Bacteria Few H (None) /hpf 04/23/22 04/23/22 Range/Units 07:08 07:32 RDW (11.5-15.5) % Chloride (98-107) mmol/L Carbon Dioxide (22-30) mmol/L BUN (7-17) mg/dL Glucose (74-99) mg/dL POC Glucose (mg/dL) 54 L 57 L (70-110) mg/dL Alkaline Phosphatase (38-126) U/L Urine Appearance (Clear) Urine Protein (Negative) Urine Blood (Negative) Urine Nitrite (Negative) Ur Leukocyte Esterase (Negative) Urine RBC (0-5) /hpf Urine WBC (0-5) /hpf Urine WBC Clumps (None) /hpf Urine Bacteria (None) /hpf Microbiology - Last 24 Hours (Table) 04/23/22 03:44 Urine Culture - Preliminary Urine,Voided Thrombosis Risk Factor Assmnt - DVT/VTE Prophylaxis DVT/VTE Prophylaxis: Pharmacologic Prophylaxis ordered - Choose All That Apply Any of the Below Risk Factors Present?: Yes Each Factor Represents 1 point: Age 41-60 years, Obesity (BMI >25) Other Risk Factors: No Other congenital or acquired thrombophilia - If yes, enter type in comment: No Thrombosis Risk Factor Assessment Total Risk Factor Score: 2 Thrombosis Risk Factor Assessment Level: Low Risk Assessment and Plan Time with Patient: Greater than 30
[2022-04-23] MEDS: TORSEMIDE 20 MG TAB PO SCH (16:02)
[2022-04-23 17:58] LABS: Glucose,Whole Blood 103 mg/dL (70-110)
[2022-04-23 21:24] LABS: Glucose,Whole Blood 118 mg/dL (70-110)
[2022-04-24] MEDS: SODIUM CHLORIDE 0.9% 1,000 ML IV SCH ×2 (00:25→15:11)
[2022-04-24] MEDS: TORSEMIDE 20 MG TAB PO SCH ×4 (00:25→23:03)
[2022-04-24] MEDS: NYSTATIN 100,000UNIT/GM CREAM 30 GM TUBE TOPICAL SCH ×3 (00:26→22:34)
[2022-04-24] MEDS: AMMONIUM LACTATE 12% CREAM 140 GM TUBE TOPICAL SCH ×3 (00:26→22:31)
[2022-04-24] MEDS: TRESIBA 100 UNIT/ML SQ SCH ×3 (00:27→23:13)
[2022-04-24] MEDS: HEPARIN SODIUM,PORCINE/PF 5,000 UNIT/0.5 ML SYRINGE SQ SCH ×3 (00:27→23:04)
[2022-04-24] MEDS: METOPROLOL SUCCINATE (ER) 25 MG TAB.ER.24H PO SCH ×2 (00:27→23:04)
[2022-04-24 07:34] LABS: Glucose,Whole Blood 80 mg/dL (70-110)
[2022-04-24 07:38] LABS: Anisocytosis Slight; Basophils % (A) 1 %; Eosinophils % (A) 0 %; HCT 33.2 % (34.0-46.0); HGB 10.8 gm/dL (11.4-16.0); Hypochromasia Slight; Lymphocytes # (A) 2.5 k/uL (1.0-4.8); Lymphocytes % (A) 51 %; MCH 30.3 pg (25.0-35.0); MCHC 32.6 g/dL (31.0-37.0); Mean Platelet Volume 7.9; Monocytes # (A) 0.4 k/uL (0-1.0); Monocytes % (A) 8 %; Neutrophils # (A) 1.9 k/uL (1.3-7.7); Neutrophils % (A) 38 %; Platelet Count 227 k/uL (150-450); RBC 3.57 m/uL (3.80-5.40); RDW 16.5 % (11.5-15.5)
[2022-04-24] MEDS: NON FORMULARY DRUG (Methenamine Hippurate [Methenamine Hippurate] 1 GM Tablet) PO SCH (07:53)
[2022-04-24] MEDS: LACTOBACILLUS ACIDOPH & BULGAR 1 EACH PACKET PO SCH (07:54)
[2022-04-24 07:57] LABS: African American GFR (CKD) >90 (>60 ml/min/1.73 sqM); Anion Gap 8 mmol/L; Blood Urea Nitrogen 15 mg/dL (7-17); Calcium 8.1 mg/dL (8.4-10.2); Carbon Dioxide 21 mmol/L (22-30); Chloride 113 mmol/L (98-107); Glucose 83 mg/dL (74-99); Magnesium 1.6 mg/dL (1.6-2.3); Non-African American GFR(CKD) >90 (>60 ml/min/1.73 sqM); Sodium 142 mmol/L (137-145)
[2022-04-24] MEDS: PANTOPRAZOLE 40 MG TABLET PO SCH (08:38)
[2022-04-24] MEDS: allopurinoL 300 MG TAB PO SCH (08:38)
[2022-04-24] MEDS: MULTIVITAMINS, THERA 1 EACH TAB PO SCH (08:38)
[2022-04-24] MEDS: LORATADINE 10 MG TAB PO SCH ×2 (08:38→23:05)
[2022-04-24] MEDS: LIRAGLUTIDE 0.6 MG/0.1 ML SQ SCH (08:40)
--- NOTE | 2022-04-24 09:52 | P.CONS ---
History of Present Illness - Reason for Consult Consult date: 04/23/22 - History of Present Illness Patient is a 56-year female with a past medical history significant for spina bifida, diabetes mellitus, did have a history of recurrent urinary tract infection, patient did have a urostomy and a history of kidney stones presenting to the ER for evaluation of feeling weak did have a diarrhea with multiple loose stools no blood or mucus in the stool the patient also complaining of dark urine and currently being treated with Levaquin for possible UTI however her symptoms are not improving with the Cipro the patient was evaluated by the ER physician on arrival to the ER the patient was afebrile and no fever have been recorded subsequently patient did have a normal white count kidney function was normal liver exams are normal patient did have a positive UA with large leukocyte esterase more than 22 WBC patient was started on Rocephin admitted to the hospital infectious disease was consulted for further management of antibiotic therapy Past Medical History Past Medical History: Asthma, Diabetes Mellitus, GERD/Reflux, Musculoskeletal Disorder, Neurologic Disorder, Pneumonia, Renal Disease, Sleep Apnea/CPAP/BIPAP Additional Past Medical History / Comment(s): 08-09-15 admitted with cellulitis of external nose. other pst medical hx includes: hx. 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 ESBL MDRO Source:: MRSA BUTTOCK, ESBL LEG Past Surgical History: Back Surgery, Bowel Resection, Orthopedic Surgery Additional Past Surgical History / Comment(s): multiple surgeries for hydrocephalus, urostomy x 2, multiple hip,leg, foot surgeries, ankles fused, [facility] shunt, pt stated back sx was to remove spina bifida growth, egd Past Anesthesia/Blood Transfusion Reactions: No Reported Reaction Past Psychological History: No Psychological Hx Reported Additional Psychological History / Comment(s): pt lives alone at [facility],gets around by w/ able to stand and pivot and drives. does have visiting nurses wed-,wednesday. Smoking Status: Never smoker Past Alcohol Use History: None Reported Past Drug Use History: None Reported - Past Family History Father Family Medical History: Hypertension Additional Family Medical History / Comment(s): gout, heart murmur, rheumatic fever as child, tia Mother Family Medical History: Cancer, Hypertension Additional Family Medical History / Comment(s): interstitial cystitis, breast cancer x2, diet controlled diabetic, hiatal hernia Medications and Allergies Home Medications Medication Instructions Recorded Confirmed Type Cetirizine HCl [Zyrtec] 5 mg PO DAILY 10/04/14 04/23/22 History Cholestyramine (with Sugar) 4 - 8 gm PO DIRECTED 10/04/14 04/23/22 History [Questran Packet] Liraglutide [Victoza 2-Raul] 1.8 mg SQ DAILY 10/04/14 04/23/22 History Omeprazole [PriLOSEC] 20 mg PO DAILY 10/04/14 04/23/22 History Torsemide [Demadex] 60 mg PO BID 10/04/14 04/23/22 History allopurinoL [Zyloprim] 300 mg PO DAILY 10/04/14 04/23/22 History Glucosamine/Chondr Choi A Sod [Osteo 1 tab PO DAILY 08/09/15 04/23/22 History Bi-Flex Caplet] Loperamide [Imodium] 1 - 2 mg PO QID PRN 08/09/15 04/23/22 History Metoprolol Succinate [Toprol XL] 25 mg PO HS 08/09/15 04/23/22 History glipiZIDE [Glucotrol] 1.67 - 5 mg PO DAILY PRN 02/23/17 04/23/22 History Ammonium Lactate Cream [Lac-Hydrin 1 applic TOPICAL BID 04/23/22 04/23/22 History 12% Cream] Azithromycin [Zithromax] See Taper PO DIRECTED 04/23/22 04/23/22 History Cranberry Fruit Extract [Cranberry] 500 mg PO DAILY 04/23/22 04/23/22 History Fish Oil/Dha/Epa [Fish Oil 1,200 1 cap PO DAILY 04/23/22 04/23/22 History mg Fish Oil] Insulin Degludec [Tresiba 36 units SQ DAILY 04/23/22 04/23/22 History Flextouch U-100 Pen] Lactobacillus Acidophilus 1 tab PO DAILY 04/23/22 04/23/22 History [Acidophilus] Methenamine Hippurate 1 gm PO BID 04/23/22 04/23/22 History Multivit with Calcium,Iron,Min 1 tab PO DAILY 04/23/22 04/23/22 History [Women's Multivitamin] Nystatin 100,000Unit/gm Cream 1 applic TOPICAL BID 04/23/22 04/23/22 History [Mycostatin Cream] Potassium Chloride [Klor-Con M20] 60 meq PO DIRECTED 04/23/22 04/23/22 History Potassium Chloride [Klor-Con M20] 80 meq PO DIRECTED 04/23/22 04/23/22 History Torsemide [Demadex] 20 mg PO PC-LUNCH 04/23/22 04/23/22 History levoFLOXacin 500 mg PO DAILY 04/23/22 04/23/22 History Allergies Allergy/AdvReac Type Severity Reaction Status Date / Time amoxicillin trihydrate Allergy Rash/Hives Verified 04/23/22 08:05 [From Augmentin] banana Allergy Unknown Verified 04/23/22 08:05 chestnut Allergy Unknown Verified 04/23/22 08:05 ciprofloxacin [From Cipro] Allergy Rash/Hives Verified 04/23/22 08:05 ciprofloxacin HCl Allergy Rash/Hives Verified 04/23/22 08:05 [From Cipro] kiwi Allergy Unknown Verified 04/23/22 08:05 Latex, Natural Rubber Allergy Anaphylaxis Verified 04/23/22 08:05 methylprednisolone Allergy Rash/Hives Verified 04/23/22 08:30 [From Solu-Medrol] nitrofurantoin Allergy Rash/Hives Verified 04/23/22 08:05 macrocrystalline [From Macrodantin] potassium clavulanate Allergy Rash/Hives Verified 04/23/22 08:05 [From Augmentin] Sulfa (Sulfonamide Allergy Rash/Hives Verified 04/23/22 08:05 Antibiotics) vancomycin Allergy Anaphylaxis Verified 04/23/22 08:05 Beef Containing Products AdvReac Diarrhea Verified 04/23/22 08:05 [Beef] midazolam HCl [From Versed] AdvReac very Verified 04/23/22 08:05 combative, disoriented sucralose AdvReac Diarrhea Verified 04/23/22 08:05 [From Splenda (sucralose)] callagen Allergy Rash/Hives Uncoded 04/23/22 08:30 Physical Exam Vitals: Vital Signs Temp Pulse Pulse Resp BP BP Pulse Ox 04/23/22 12:27 97.9 F 91 16 108/72 98 04/23/22 06:04 98.2 F 16 124/78 99 04/23/22 03:05 98.2 F 76 16 115/74 100 Intake and Output 04/23/22 04/23/22 04/23/22 06:59 14:59 22:59 Intake Total 100 Balance 100 Intake: Oral 100 Other: Voiding Method Ileal Conduit (Right) Weight 84 kg Results CBC & Chem 7: 04/24/22 07:09 04/24/22 07:09 Labs: Abnormal Lab Results - Last 24 Hours (Table) 04/23/22 04/23/22 04/23/22 Range/Units 03:44 03:44 03:44 RDW 16.4 H (11.5-15.5) % Chloride 111 H (98-107) mmol/L Carbon Dioxide 17 L (22-30) mmol/L BUN 23 H (7-17) mg/dL Glucose 132 H (74-99) mg/dL POC Glucose (mg/dL) (70-110) mg/dL Hemoglobin A1c (0.0-6.0) % Alkaline Phosphatase 140 H (38-126) U/L Urine Appearance Turbid H (Clear) Urine Protein 1+ H (Negative) Urine Blood Moderate H (Negative) Urine Nitrite Positive H (Negative) Ur Leukocyte Esterase Large H (Negative) Urine RBC 19 H (0-5) /hpf Urine WBC >182 H (0-5) /hpf Urine WBC Clumps Many H (None) /hpf Urine Bacteria Few H (None) /hpf 04/23/22 04/23/22 04/23/22 Range/Units 03:44 07:08 07:32 RDW (11.5-15.5) % Chloride (98-107) mmol/L Carbon Dioxide (22-30) mmol/L BUN (7-17) mg/dL Glucose (74-99) mg/dL POC Glucose (mg/dL) 54 L 57 L (70-110) mg/dL Hemoglobin A1c 6.3 H (0.0-6.0) % Alkaline Phosphatase (38-126) U/L Urine Appearance (Clear) Urine Protein (Negative) Urine Blood (Negative) Urine Nitrite (Negative) Ur Leukocyte Esterase (Negative) Urine RBC (0-5) /hpf Urine WBC (0-5) /hpf Urine WBC Clumps (None) /hpf Urine Bacteria (None) /hpf Microbiology - Last 24 Hours (Table) 04/23/22 03:44 Urine Culture - Preliminary Urine,Voided Assessment and Plan Plan: 1patient with a history of recurrent urine tract infection in this patient with a urostomy after multiple surgery for urine retention because of spina bifida presented to hospital with weakness and abdominal discomfort and dark urine concerning for a symptomatic UTI. 2patient with multiple antibiotic allergies that would limit the number of a ntibiotics safe to use. 3diarrhea with recent antibiotic exposure stool for C. difficile is pending. 4Rocephin 2 g bid to continue while waiting for the culture to finalize. 5gentle IV fluid. We will follow on clinical condition and cultures to further adjust medication if needed Thank you for this consultation will follow this patient along with you Time with Patient: Greater than 30
[2022-04-24 12:18] LABS: Glucose,Whole Blood 102 mg/dL (70-110)
[2022-04-24] MEDS ORDERED: Potassium Replacement Protocol 1 EACH MISC MISCELLANE PRN (15:59)
[2022-04-24] MEDS ORDERED: Magnesium Replacement Protocol 1 EACH MISC MISCELLANE PRN (15:59)
[2022-04-24] MEDS: POTASSIUM CHLORIDE ER 20 MEQ TAB.ER PO SCH ×2 (16:31→18:03)
[2022-04-24] MEDS: MAGNESIUM SULFATE-D5W PMX 1 GM in DEXTROSE/WATER 1 100ML.BAG IVPB SCH ×2 (16:32→18:03)
[2022-04-24 17:36] LABS: Glucose,Whole Blood 148 mg/dL (70-110)
[2022-04-24] MEDS: ACETAMINOPHEN TAB 325 MG TAB PO PRN (18:05)
--- NOTE | 2022-04-24 19:36 | P.PN ---
Subjective Progress Note Date: 04/24/22 This is a pleasant 56-year-old female who recently presented to the emergency department feeling dehydrated and having increased diarrhea and recurrent urinary tract infections. Patient reports she has a urostomy and had been maintained on Levaquin for the past 10 days and was seen and evaluated in an outpatient clinic and given this and instructed to go to the ER although patient refused as she reports she was feeling slightly better from taking antibiotics. Patient reports she has frequent UTIs and follows with Dr. Reynolds in the outpatient setting. 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 Patient has had recurrent infections and ESBL along with MRSA of her buttock and leg regions. Patient reports she is wheelchair- bound and lives at home alone and has visiting nurses 4 days weekly in the home. Will consult infectious disease and appreciate input and recommendations this patient does have drug ALLERGIES to antibiotics and has had multiple recurrent infections. Urine cultures have been sent and pending at this time. Labs on admission reveal no white blood count of 5.0, hemoglobin stable at 12.5, sodium is 140, potassium 4.3, BUN 23, creatinine 0.71. Patient was admitted for IV antibiotics and urinary tract infection. 04/24/2022 Patient is seen and evaluated in follow-up this morning maintained on IV antibiotics in the form of ceftriaxone with anxiety following closely. Ted zaman awaiting on urine culture finalization determine proper antibiotics. Patient reports she had a large bowel movement yesterday with no further bowel movements and currently awaiting on a C. diff sample. Suspicion is low although will send a sample when not patient provides the specimen. Patient is currently afebrile reports generalized weakness and fatigue. Patient is tolerating diet although decreased oral intake with some intermittent nausea. Patient denies chest pain or shortness of breath. A.m. labs currently pending. Recommend to replace electrolytes per protocol. Review of systems: Constitutional: No reports of fatigue, fever, or chills Cardiovascular: No reports of chest pain or palpitations Respiratory: No reports of shortness of breath or cough GI: No reports of nausea, vomiting, or diarrhea today, reports soft semi formed stool last night : No reports of dysuria or retention Neurovascular: No reports of weakness or numbness All medications have been reviewed PHYSICAL EXAMINATION: GENERAL: The patient is alert and oriented x4, Well developed, well nourished. Wheelchair-bound, obese HEENT: Pupils are round and equally reacting to light. EOMI. no scleral icterus. No conjunctival pallor. Normocephalic, atraumatic. No pharyngeal erythema. No thyromegaly. CARDIOVASCULAR: S1 and S2 muffled PULMONARY: diminished breath sounds bilaterally with no wheezing or rhonchi noted. ABDOMEN: soft. Nontender on exam. obese. non-distended, normoactive bowel s ounds. No palpable organomegaly. MUSCULOSKELETAL: No joint swelling or deformity. EXTREMITIES: No cyanosis, clubbing, or pedal edema. NEUROLOGICAL: Gross neurological examination did not reveal any focal deficits. SKIN: No rashes. Assessment: Dehydration, secondary to increased diarrhea Diarrhea, possibly gastritis Hypokalemia Hypomagnesemia Acute urinary tract infection, present on admission with failed outpatient therapy Past history of MRSA and ESBL of the wounds recurrent urinary tract infections Asthma history, not in exacerbation Diabetes mellitus, type II, insulin-dependent Gastroesophageal reflux disease Musculoskeletal disorder History of spina bifida with hydrocephalus Chairi I malformation Chronic renal disease Sleep apnea with a CPAP GI prophylaxis DVT prophylaxis Full code Plan: Recommend to continue with current medications and management and infectious disease following and continued on ceftriaxone. Preliminary cultures showing gram negative bacilli. Urostomy back is clear and yellow . Patient with diabetes recommend Accu-Cheks before meals and at bedtime and will resume home medications. Patient also chronically takes torsemide and will resume and foll ow-up with repeat labs. Potassium and magnesium low today and will replace and repeat am labs. Patient with no further episodes of diarrhea and had a soft formed stool last night and C. diff was cancelled. Awaiting finalized urine cultures. Will dc fluids. Due to multiple complex medical issues, prognosis is guarded. Further recommendations to follow based on the clinical course of the patient. The impression and plan of care has been dictated by Shefali Mccarty, nurse practitioner as directed. Dr. Keny MD I have performed a history and examination and MDM of this patient, discussed the same with the dictator, and agree with the dictator's assessment and plan as written ,documented as a scribe. Based on total visit time, I have performed more than 50% of the visit. Any additional findings or plans will be noted. Objective - Vital Signs Vital signs: Vital Signs Temp 98.1 F 04/24/22 12:12 Pulse 64 04/24/22 12:12 Resp 18 04/24/22 12:12 BP 96/60 04/24/22 12:12 Pulse Ox 98 04/24/22 12:12 FiO2 Intake & Output 04/23/22 04/24/22 04/24/22 18:59 06:59 18:59 Intake Total 1340 900 Output Total 1100 2400 Balance 240 -1500 Intake: Intake, IV Titration 1340 900 Amount Sodium Chloride 0.9% 1, 300 900 000 ml @ 75 mls/hr IV . [id number] [facility] Rx#:[id number] Sodium Chloride 0.9% 1, 1040 000 ml @ 999 mls/hr IV . Q1H1M [facility] Rx#:[id number] Output: Urine 1100 2400 Other: Voiding Method Ileal Conduit (Right) Ileal Conduit (Right) Ileal Conduit (Right) - Labs CBC & Chem 7: 04/24/22 07:09 04/24/22 07:09 Labs: Abnormal Lab Results - Last 24 Hours (Table) 04/23/22 04/24/22 04/24/22 Range/Units 21:12 07:09 07:09 RBC 3.57 L (3.80-5.40) m/uL Hgb 10.8 L (11.4-16.0) gm/dL Hct 33.2 L (34.0-46.0) % RDW 16.5 H (11.5-15.5) % Potassium 3.0 L (3.5-5.1) mmol/L Chloride 113 H (98-107) mmol/L Carbon Dioxide 21 L (22-30) mmol/L POC Glucose (mg/dL) 118 H (70-110) mg/dL Calcium 8.1 L (8.4-10.2) mg/dL Microbiology - Last 24 Hours (Table) 04/23/22 03:44 Urine Culture - Preliminary Urine,Voided Gram Neg Bacilli 04/23/22 04:45 Blood Culture - Preliminary Blood No Growth after 24 hours
[2022-04-25] MEDS: AMMONIUM LACTATE 12% CREAM 140 GM TUBE TOPICAL SCH ×2 (10:09→21:02)
[2022-04-25] MEDS: allopurinoL 300 MG TAB PO SCH (10:09)
[2022-04-25] MEDS: PANTOPRAZOLE 40 MG TABLET PO SCH (10:09)
[2022-04-25] MEDS: MULTIVITAMINS, THERA 1 EACH TAB PO SCH (10:10)
[2022-04-25] MEDS: LIRAGLUTIDE 0.6 MG/0.1 ML SQ SCH ×2 (10:10→13:01)
[2022-04-25] MEDS: LACTOBACILLUS ACIDOPH & BULGAR 1 EACH PACKET PO SCH (10:10)
[2022-04-25] MEDS: TORSEMIDE 20 MG TAB PO SCH ×3 (10:10→21:04)
[2022-04-25] MEDS: HEPARIN SODIUM,PORCINE/PF 5,000 UNIT/0.5 ML SYRINGE SQ SCH ×2 (10:10→21:03)
[2022-04-25] MEDS: NYSTATIN 100,000UNIT/GM CREAM 30 GM TUBE TOPICAL SCH ×2 (10:10→21:04)
[2022-04-25] MEDS: NON FORMULARY DRUG (Methenamine Hippurate [Methenamine Hippurate] 1 GM Tablet) PO SCH ×2 (10:10→20:54)
[2022-04-25 11:37] LABS: Glucose,Whole Blood 102 mg/dL (70-110)
[2022-04-25 12:32] LABS: Glucose,Whole Blood 129 mg/dL (70-110)
[2022-04-25] MEDS: ACETAMINOPHEN TAB 325 MG TAB PO PRN (16:21)
[2022-04-25 16:24] LABS: Glucose,Whole Blood 95 mg/dL (70-110)
[2022-04-25 19:55] LABS: African American GFR (CKD) 126.3 (60.0-200.0); Anion Gap 10.4 mmol/L (10.00-18.00); BUN/Creat Ratio 28.6 Ratio (12.00-20.00); Blood Urea Nitrogen 14.3 mg/dL (9.0-27.0); Calcium 8.1 mg/dL (8.7-10.3); Carbon Dioxide 22.6 mmol/L (20.0-27.5); Magnesium 1.8 mg/dL (1.5-2.4)
[2022-04-25 20:14] LABS: Glucose,Whole Blood 101 mg/dL (70-110)
[2022-04-25] MEDS: LORATADINE 10 MG TAB PO SCH (21:03)
[2022-04-25] MEDS: METOPROLOL SUCCINATE (ER) 25 MG TAB.ER.24H PO SCH (21:03)
[2022-04-25] MEDS: TRESIBA 100 UNIT/ML SQ SCH (21:04)
[2022-04-25] MEDS: POTASSIUM CHLORIDE ER 20 MEQ TAB.ER PO SCH (23:39)
--- NOTE | 2022-04-26 00:11 | P.PN ---
Subjective Progress Note Date: 04/24/22 Principal diagnosis: Urinary tract infection Patient is a 56-year female with a past medical history significant for spina bifida, diabetes mellitus, did have a history of recurrent urinary tract infection, patient did have a urostomy and a history of kidney stones pres enting to the ER for evaluation of feeling weak, patient did have positive UA concerning for symptomatic urinary tract infection. On today's evaluation that is 04/24/2022, the patient denies having any fever or any chills, the patient is breathing comfortably no chest pain shortness of breath or cough patient diarrhea has resolved and urine is clearing out Objective - Vital Signs Vital signs: Vital Signs Temp 98.1 F 04/24/22 12:12 Pulse 64 04/24/22 12:12 Resp 18 04/24/22 12:12 BP 96/60 04/24/22 12:12 Pulse Ox 98 04/24/22 12:12 FiO2 Intake & Output 04/23/22 04/24/22 04/24/22 18:59 06:59 18:59 Intake Total 1340 900 Output Total 1100 2400 Balance 240 -1500 Intake: Intake, IV Titration 1340 900 Amount Sodium Chloride 0.9% 1, 300 900 000 ml @ 75 mls/hr IV . [id number] [facility] Rx#:[id number] Sodium Chloride 0.9% 1, 1040 000 ml @ 999 mls/hr IV . Q1H1M [facility] Rx#:[id number] Output: Urine 1100 2400 Other: Voiding Method Ileal Conduit (Right) Ileal Conduit (Right) Ileal Conduit (Right) - Exam GENERAL DESCRIPTION: Middle-aged male lying in bed in no distress RESPIRATORY SYSTEM: Unlabored breathing , decreased breath sounds at bases HEART: S1 S2 regular rate and rhythm , ABDOMEN: Soft , no tenderness EXTREMITIES: No edema feet - Labs CBC & Chem 7: 04/24/22 07:09 04/25/22 12:53 Labs: Abnormal Lab Results - Last 24 Hours (Table) 04/23/22 04/24/22 04/24/22 Range/Units 21:12 07:09 07:09 RBC 3.57 L (3.80-5.40) m/uL Hgb 10.8 L (11.4-16.0) gm/dL Hct 33.2 L (34.0-46.0) % RDW 16.5 H (11.5-15.5) % Potassium 3.0 L (3.5-5.1) mmol/L Chloride 113 H (98-107) mmol/L Carbon Dioxide 21 L (22-30) mmol/L POC Glucose (mg/dL) 118 H (70-110) mg/dL Calcium 8.1 L (8.4-10.2) mg/dL Microbiology - Last 24 Hours (Table) 04/23/22 03:44 Urine Culture - Preliminary Urine,Voided Gram Neg Bacilli 04/23/22 04:45 Blood Culture - Preliminary Blood No Growth after 24 hours Assessment and Plan (1) UTI (urinary tract infection) Current Visit: Yes Status: Acute Code(s): N39.0 - URINARY TRACT INFECTION, SITE NOT SPECIFIED SNOMED Code(s): 51945465 Plan: 1patient with a history of recurrent urine tract infection in this patient with a urostomy after multiple surgery for urine retention because of spina bifida presented to hospital with weakness and abdominal discomfort and dark urine concerning for a symptomatic UTI. 2patient with multiple antibiotic allergies that would limit the number of antibiotics safe to use. 3patient to continue with Rocephin 2 g bid to continue while waiting for the culture to finalize. Time with Patient: Less than 30
--- NOTE | 2022-04-26 00:12 | P.PN ---
Subjective Progress Note Date: 04/25/22 Principal diagnosis: Urinary tract infection Patient is a 56-year female with a past medical history significant for spina bifida, diabetes mellitus, did have a history of recurrent urinary tract infection, patient did have a urostomy and a history of kidney stones pres enting to the ER for evaluation of feeling weak, patient did have positive UA concerning for symptomatic urinary tract infection. On today's evaluation that is 04/25/2022, the patient remains to be afebrile, the patient is breathing comfortably on room air, patient denies chest pain shortness of breath or cough patient diarrhea has resolved and no new symptoms Objective - Vital Signs Vital signs: Vital Signs Temp 98.3 F 04/25/22 12:18 Pulse 62 04/25/22 12:18 Resp 16 04/25/22 12:18 BP 120/72 04/25/22 12:18 Pulse Ox 98 04/25/22 12:18 FiO2 Intake & Output 04/24/22 04/25/22 04/25/22 18:59 06:59 18:59 Intake Total 900 Output Total 2250 1400 Balance -1350 -1400 Intake: Intake, IV Titration 900 Amount Sodium Chloride 0.9% 1, 900 000 ml @ 75 mls/hr IV . [id number] [facility] Rx#:[id number] Output: Urine 2250 1400 Other: Voiding Method Ileal Conduit (Right) Ileal Conduit (Right) # Bowel Movements 1 - Exam GENERAL DESCRIPTION: Middle-aged male lying in bed in no distress RESPIRATORY SYSTEM: Unlabored breathing , decreased breath sounds at bases HEART: S1 S2 regular rate and rhythm , ABDOMEN: Soft , no tenderness EXTREMITIES: No edema feet - Labs CBC & Chem 7: 04/24/22 07:09 04/25/22 12:53 Labs: Abnormal Lab Results - Last 24 Hours (Table) 04/24/22 04/25/22 Range/Units 17:34 12:24 POC Glucose (mg/dL) 148 H 129 H (70-110) mg/dL Microbiology - Last 24 Hours (Table) 04/23/22 03:44 Urine Culture - Final Urine,Voided Escherichia coli Methicillin resist S. aureus 04/23/22 04:45 Blood Culture - Preliminary Blood No Growth after 48 hours Assessment and Plan (1) UTI (urinary tract infection) Current Visit: Yes Status: Acute Code(s): N39.0 - URINARY TRACT INFECTION, SITE NOT SPECIFIED SNOMED Code(s): 97043621 Plan: 1patient with a history of recurrent urine tract infection in this patient with a urostomy after multiple surgery for urine retention because of spina bifida presented to hospital with weakness and abdominal discomfort and dark urine concerning for a symptomatic UTI. 2patient with multiple antibiotic allergies that would limit the number of antibiotics safe to use. 3patient urine has been finalized with MRSA and E. coli patient did have a vancomycin ALLERGY she will continue with the Rocephin and we will add daptomycin to cover for the MRSA Time with Patient: Less than 30
[2022-04-26] MEDS: POTASSIUM CHLORIDE ER 20 MEQ TAB.ER PO SCH (00:38)
[2022-04-26 07:34] LABS: Glucose,Whole Blood 83 mg/dL (70-110)
[2022-04-26] MEDS: LIRAGLUTIDE 0.6 MG/0.1 ML SQ SCH (07:35)
[2022-04-26] MEDS: NON FORMULARY DRUG (Methenamine Hippurate [Methenamine Hippurate] 1 GM Tablet) PO SCH ×2 (07:36→21:19)
[2022-04-26] MEDS: LACTOBACILLUS ACIDOPH & BULGAR 1 EACH PACKET PO SCH (09:20)
[2022-04-26] MEDS: HEPARIN SODIUM,PORCINE/PF 5,000 UNIT/0.5 ML SYRINGE SQ SCH ×2 (09:21→21:18)
[2022-04-26] MEDS: MULTIVITAMINS, THERA 1 EACH TAB PO SCH (09:21)
[2022-04-26] MEDS: allopurinoL 300 MG TAB PO SCH (09:21)
[2022-04-26] MEDS: PANTOPRAZOLE 40 MG TABLET PO SCH (09:21)
[2022-04-26] MEDS: NYSTATIN 100,000UNIT/GM CREAM 30 GM TUBE TOPICAL SCH ×2 (09:22→21:23)
[2022-04-26] MEDS: TORSEMIDE 20 MG TAB PO SCH ×3 (09:22→21:18)
[2022-04-26] MEDS: AMMONIUM LACTATE 12% CREAM 140 GM TUBE TOPICAL SCH ×2 (09:22→21:19)
[2022-04-26 12:04] LABS: Glucose,Whole Blood 92 mg/dL (70-110)
[2022-04-26 17:19] LABS: Glucose,Whole Blood 104 mg/dL (70-110)
[2022-04-26 18:27] LABS: Appearance,Urine Cloudy (Clear); Bacteria,Urine Many /hpf; Bilirubin,Urine Negative (Negative); Blood,Urine Small (Negative); Color,Urine Light Yellow; Glucose,Urine (UA) Negative (Negative); Hyaline Casts,Urine 6 /lpf (0-2); Ketones,Urine Negative (Negative); Leukocyte Esterase,Urine Large (Negative); Nitrite,Urine Negative (Negative); Protein,Urine Trace (Negative); RBC,Urine 41 /hpf (0-5); Specific Gravity,Urine 1.009 (1.001-1.035); Urobilinogen,Urine <2.0 mg/dL (<2.0); WBC,Urine >182 /hpf (0-5)
[2022-04-26 20:04] LABS: Glucose,Whole Blood 123 mg/dL (70-110)
[2022-04-26] MEDS: LORATADINE 10 MG TAB PO SCH (21:18)
[2022-04-26] MEDS: METOPROLOL SUCCINATE (ER) 25 MG TAB.ER.24H PO SCH (21:18)
[2022-04-26] MEDS: TRESIBA 100 UNIT/ML SQ SCH (21:22)
[2022-04-26] MEDS ORDERED: POTASSIUM CHLORIDE ER 20 MEQ TAB.ER PO SCH (23:02)
--- NOTE | 2022-04-26 23:36 | P.PN ---
Subjective Progress Note Date: 04/25/22 This is a pleasant 56-year-old female who recently presented to the emergency department feeling dehydrated and having increased diarrhea and recurrent urinary tract infections. Patient reports she has a urostomy and had been maintained on Levaquin for the past 10 days and was seen and evaluated in an [facility] clinic and given this and instructed to go to the ER although patient refused as she reports she was feeling slightly better from taking antibiotics. Patient reports she has frequent UTIs and follows with Dr. Reynolds in the outpatient setting. 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 Patient has had recurrent infections and ESBL along with MRSA of her buttock and leg regions. Patient reports she is wheelchair- bound and lives at home alone and has visiting nurses 4 days weekly in the home. Will consult infectious disease and appreciate input and recommendations this patient does have drug ALLERGIES to antibiotics and has had multiple recurrent infections. Urine cultures have been sent and pending at this time. Labs on admission reveal no white blood count of 5.0, hemoglobin stable at 12.5, sodium is 140, potassium 4.3, BUN 23, creatinine 0.71. Patient was admitted for IV antibiotics and urinary tract infection. 04/24/2022 Patient is seen and evaluated in follow-up this morning maintained on IV antibiotics in the form of ceftriaxone with anxiety following closely. Current ly awaiting on urine culture finalization determine proper antibiotics. Patient reports she had a large bowel movement yesterday with no further bowel movements and currently awaiting on a C. diff sample. Suspicion is low although will send a sample when not patient provides the specimen. Patient is currently afebrile reports generalized weakness and fatigue. Patient is tolerating diet although decreased oral intake with some intermittent nausea. Patient denies chest pain or shortness of breath. A.m. labs currently pending. Recommend to replace electrolytes per protocol. 04/25/2022 Patient is resting in bed. Awake alert and oriented. Hard of hearing. No complaints of nausea or vomiting. Patient did have episodes of diarrhea with loose stools today. Patient is Reyna catheter. Afebrile. No complaints of chest pain or shortness of breath. Still having generalized weakness. Laboratory test showed sodium 140 potassium 3.0. Chloride 107 BUN 14.3 and creatinine 0.5 and calcium 8.1 and magnesium 1.8. ID is on board. Continued on antibiotics in the form of ceftriaxone 2 g every 24 hours. And also on daptomycin. Urine culture showed E. coli and MRSA. Current medications reviewed. Review of systems: Constitutional: No reports of fatigue, fever, or chills Cardiovascular: No reports of chest pain or palpitations Respiratory: No reports of shortness of breath or cough GI: No reports of nausea, vomiting, or diarrhea today, reports soft semi formed stool last night : No reports of dysuria or retention Neurovascular: No reports of weakness or numbness All medications have been reviewed PHYSICAL EXAMINATION: GENERAL: The patient is alert and oriented x4, Well developed, well nourished. Wheelchair-bound, obese HEENT: Pupils are round and equally reacting to light. EOMI. no scleral icterus. No conjunctival pallor. Normocephalic, atraumatic. No pharyngeal erythema. No thyromegaly. CARDIOVASCULAR: S1 and S2 muffled PULMONARY: diminished breath sounds bilaterally with no wheezing or rhonchi noted. ABDOMEN: soft. Nontender on exam. obese. non-distended, normoactive bowel sounds. No palpable organomegaly. MUSCULOSKELETAL: No joint swelling or deformity. EXTREMITIES: No cyanosis, clubbing, or pedal edema. NEUROLOGICAL: Gross neurological examination did not reveal any focal deficits. SKIN: No rashes. Assessment: Dehydration, secondary to increased diarrhea Diarrhea, possibly Gastroenteritis Hypokalemia Hypomagnesemia Acute urinary tract infection, present on admission with failed outpatient therapy Past history of MRSA and ESBL of the wounds recurrent urinary tract infections Asthma history, not in exacerbation Diabetes mellitus, type II, insulin-dependent Gastroesophageal reflux disease Musculoskeletal disorder History of spina bifida with hydrocephalus Chairi I malformation Chronic renal disease Sleep apnea with a CPAP GI prophylaxis DVT prophylaxis Full code Plan: Recommend to continue with current medications and management and infectious disease following and continued on ceftriaxone. Preliminary cultures showing gram negative bacilli. Urostomy back is clear and yellow . Patient with diabetes recommend Accu-Cheks before meals and at bedtime and will resume home medications. Patient also chronically takes torsemide and will resume and follow-up with repeat labs. Potassium and magnesium low today and will replace and repeat am labs. Patient with no further episodes of diarrhea and had a soft formed stool last night and C. diff was cancelled. Awaiting finalized urine cultures. Will dc fluids. Due to multiple complex medical issues, prognosis is guarded. Further recommendations to follow based on the clinical course of the patient. Objective - Vital Signs Vital signs: Vital Signs Temp 98.3 F 04/25/22 12:18 Pulse 62 04/25/22 12:18 Resp 16 04/25/22 12:18 BP 120/72 04/25/22 12:18 Pulse Ox 98 04/25/22 12:18 FiO2 Intake & Output 04/25/22 04/25/22 04/26/22 06:59 18:59 05:59 Intake Total 450 Output Total 2800 Balance -2350 Intake: Intake, IV Titration 450 Amount Sodium Chloride 0.9% 1, 450 000 ml @ 75 mls/hr IV . [id number] [facility] Rx#:[id number] Output: Urine 2800 Other: Voiding Method Ileal Conduit (Right) # Bowel Movements 1 - Labs CBC & Chem 7: 04/24/22 07:09 04/26/22 05:24 Labs: Abnormal Lab Results - Last 24 Hours (Table) 04/25/22 Range/Units 12:24 POC Glucose (mg/dL) 129 H (70-110) mg/dL Microbiology - Last 24 Hours (Table) 04/23/22 03:44 Urine Culture - Final Urine,Voided Escherichia coli Methicillin resist S. aureus 04/23/22 04:45 Blood Culture - Preliminary Blood No Growth after 48 hours
--- NOTE | 2022-04-26 23:40 | P.PN ---
Subjective Progress Note Date: 04/26/22 This is a pleasant 56-year-old female who recently presented to the emergency department feeling dehydrated and having increased diarrhea and recurrent urinary tract infections. Patient reports she has a urostomy and had been maintained on Levaquin for the past 10 days and was seen and evaluated in an [facility] clinic and given this and instructed to go to the ER although patient refused as she reports she was feeling slightly better from taking antibiotics. Patient reports she has frequent UTIs and follows with Dr. Reynolds in the outpatient setting. 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 Patient has had recurrent infections and ESBL along with MRSA of her buttock and leg regions. Patient reports she is wheelchair- bound and lives at home alone and has visiting nurses 4 days weekly in the home. Will consult infectious disease and appreciate input and recommendations this patient does have drug ALLERGIES to antibiotics and has had multiple recurrent infections. Urine cultures have been sent and pending at this time. Labs on admission reveal no white blood count of 5.0, hemoglobin stable at 12.5, sodium is 140, potassium 4.3, BUN 23, creatinine 0.71. Patient was admitted for IV antibiotics and urinary tract infection. 04/24/2022 Patient is seen and evaluated in follow-up this morning maintained on IV antibiotics in the form of ceftriaxone with anxiety following closely. Current ly awaiting on urine culture finalization determine proper antibiotics. Patient reports she had a large bowel movement yesterday with no further bowel movements and currently awaiting on a C. diff sample. Suspicion is low although will send a sample when not patient provides the specimen. Patient is currently afebrile reports generalized weakness and fatigue. Patient is tolerating diet although decreased oral intake with some intermittent nausea. Patient denies chest pain or shortness of breath. A.m. labs currently pending. Recommend to replace electrolytes per protocol. 04/25/2022 Patient is resting in bed. Awake alert and oriented. Hard of hearing. No complaints of nausea or vomiting. Patient did have episodes of diarrhea with loose stools today. Patient is Reyna catheter. Afebrile. No complaints of chest pain or shortness of breath. Still having generalized weakness. Laboratory test showed sodium 140 potassium 3.0. Chloride 107 BUN 14.3 and creatinine 0.5 and calcium 8.1 and magnesium 1.8. ID is on board. Continued on antibiotics in the form of ceftriaxone 2 g every 24 hours. And also on daptomycin. Urine culture showed E. coli and MRSA. 04/26/2022 Patient is resting in bed. Patient states that she had 1 episode of explosive watery diarrhea this morning. Denies any complaints of abdominal pain. No fever no chills. No nausea vomiting. No cough or sputum production. No chest pain or shortness of breath C. difficile toxin is negative. Continued on daptomycin and ceftriaxone. ID is on board. Lab data reviewed. Current medications reviewed. Review of systems: Constitutional: No reports of fatigue, fever, or chills Cardiovascular: No reports of chest pain or palpitations Respiratory: No reports of shortness of breath or cough GI: No reports of nausea, vomiting, or diarrhea today, reports soft semi formed stool last night : No reports of dysuria or retention Neurovascular: No reports of weakness or numbness All medications have been reviewed PHYSICAL EXAMINATION: GENERAL: The patient is alert and oriented x4, Well developed, well nourished. Wheelchair-bound, obese HEENT: Pupils are round and equally reacting to light. EOMI. no scleral icterus. No conjunctival pallor. Normocephalic, atraumatic. No pharyngeal erythema. No thyromegaly. CARDIOVASCULAR: S1 and S2 muffled PULMONARY: diminished breath sounds bilaterally with no wheezing or rhonchi noted. ABDOMEN: soft. Nontender on exam. obese. non-distended, normoactive bowel sounds. No palpable organomegaly. MUSCULOSKELETAL: No joint swelling or deformity. EXTREMITIES: No cyanosis, clubbing, or pedal edema. NEUROLOGICAL: Gross neurological examination did not reveal any focal deficits. SKIN: No rashes. Assessment: Dehydration, secondary to increased diarrhea Diarrhea, possibly Gastroenteritis Hypokalemia Hypomagnesemia Acute urinary tract infection, present on admission with failed outpatient therapy Past history of MRSA and ESBL of the wounds recurrent urinary tract infections Asthma history, not in exacerbation Diabetes mellitus, type II, insulin-dependent Gastroesophageal reflux disease Musculoskeletal disorder History of spina bifida with hydrocephalus Chairi I malformation Chronic renal disease Sleep apnea with a CPAP GI prophylaxis DVT prophylaxis Full code Plan: Recommend to continue with current medications and management and infectious disease following and continued on ceftriaxone and dapto. Urine culture showed MRSA and E. coli.. Urostomy back is clear and yellow . Patient with diabetes recommend Accu-Cheks before meals and at bedtime and will resume home medications. follow-up with repeat labs. We will hold torsemide due to hypokalemia and ongoing diarrhea. Encourage oral intake. Potassium and magnesium low today and will replace and repeat am labs. Due to multiple complex medical issues, prognosis is guarded. Further recommendations to follow based on the clinical course of the patient. Objective - Vital Signs Vital signs: Vital Signs Temp 97.3 F L 04/26/22 12:00 Pulse 67 04/26/22 12:00 Resp 16 04/26/22 12:00 BP 100/65 04/26/22 12:00 Pulse Ox 98 04/26/22 12:00 FiO2 Intake & Output 04/25/22 04/26/22 04/26/22 19:59 06:59 18:59 Intake Total Output Total 400 Balance -400 Intake: Intake, IV Titration Amount Sodium Chloride 0.9% 1, 000 ml @ 75 mls/hr IV . [id number] [facility] Rx#:[id number] Output: Urine 400 Other: Voiding Method Ileal Conduit (Right) # Bowel Movements 1 - Labs CBC & Chem 7: 04/24/22 07:09 04/26/22 05:24 Labs: Abnormal Lab Results - Last 24 Hours (Table) 04/25/22 04/26/22 Range/Units 12:53 17:50 Potassium 3.0 L (3.5-5.5) mmol/L Creatinine 0.5 L (0.6-1.5) mg/dL BUN/Creatinine Ratio 28.60 H (12.00-20.00) Ratio Calcium 8.1 L (8.7-10.3) mg/dL Urine Appearance Cloudy H (Clear) Urine Protein Trace H (Negative) Urine Blood Small H (Negative) Ur Leukocyte Esterase Large H (Negative) Urine RBC 41 H (0-5) /hpf Urine WBC >182 H (0-5) /hpf Urine WBC Clumps Many H (None) /hpf Urine Bacteria Many H (None) /hpf Hyaline Casts 6 H (0-2) /lpf Microbiology - Last 24 Hours (Table) 04/23/22 04:45 Blood Culture - Preliminary Blood No Growth after 72 hours
[2022-04-27 07:09] LABS: Glucose,Whole Blood 88 mg/dL (70-110)
[2022-04-27] MEDS: LIRAGLUTIDE 0.6 MG/0.1 ML SQ SCH ×2 (07:19→13:14)
[2022-04-27] MEDS: NON FORMULARY DRUG (Methenamine Hippurate [Methenamine Hippurate] 1 GM Tablet) PO SCH ×2 (09:16→21:27)
[2022-04-27] MEDS: allopurinoL 300 MG TAB PO SCH (09:21)
[2022-04-27] MEDS: MULTIVITAMINS, THERA 1 EACH TAB PO SCH (09:21)
[2022-04-27] MEDS: PANTOPRAZOLE 40 MG TABLET PO SCH (09:21)
[2022-04-27] MEDS: LACTOBACILLUS ACIDOPH & BULGAR 1 EACH PACKET PO SCH (09:21)
[2022-04-27] MEDS: HEPARIN SODIUM,PORCINE/PF 5,000 UNIT/0.5 ML SYRINGE SQ SCH ×2 (09:21→21:02)
[2022-04-27] MEDS: NYSTATIN 100,000UNIT/GM CREAM 30 GM TUBE TOPICAL SCH ×2 (09:22→21:07)
[2022-04-27] MEDS: AMMONIUM LACTATE 12% CREAM 140 GM TUBE TOPICAL SCH ×2 (09:22→21:07)
--- NOTE | 2022-04-27 10:19 | CDI ---
Documentation Clarification Form Date: 04/27/2022 10:03:11 AM From: Marleen Swartz CCS, CCDS Admit Date: 04/23/2022 04:47:00 AM Patient Name: Marielos Cardenas Visit Number: [id number] Discharge Date: ATTENTION: The Clinical Documentation Specialists (CDI) and [facility] Coding Staff appreciate your assistance in clarifying documentation. Please respond to the clarification below the line at the bottom and electronically sign. The CDI & [facility] Coding staff will review the response and follow-up if needed. Please note: Queries are made part of the Legal Health Record. If you have any questions, please contact the author of this message via ITS. Dr. Robert Bustillo: Per the 04/23 H/P, the patient has a Urostomy due to multiple surgeries for urinary retention with a history of Spina Bifida and recurrent UTIs. The patient is admitted with a UTI. Per the 04/25 and 04/26 Attending Physician Progress Notes: Patient has a Reyna Catheter. Additional clarification regarding the etiology of the UTI is requested. History/Risk Factors per the 04/23 H/P: Frequent UTIs (MRSA & ESBL) and Urostomy, Asthma, IDDM II, GERD, Spina Bifida, Sleep Apnea w/CPAP, Hydrocephalus with Chiari Malformation, Gout, Wheelchair dependent. Clinical Indicators: Presented to the ED via EMS from home with Nausea, Vomiting, Diarrhea, Dehydration. Currently taking Levaquin for a UTI. Admit with Dehydration and UTI. 04/23 UA: Yellow, Turbid, 1+ Protein, Moderate Blood, Positive Nitrite, Large Esterase, RBC 19, WBC >182. 04/23 Urine Culture (final): E Coli, MRSA. 04/26 UA: Light Yellow, Cloudy, Trace Protein, Small Blood, Large Esterase, RBC 41, WBC >182. 04/26 Urine Culture (preliminary). Treatment 04/23: Infectious Disease Consult, Blood and Urine Cultures, IV Na Chl 1,000 mls @ 999 mls/hr q1H, IV Rocephin 1,000 mg x1, IV Clindamycin 54 mls @ 50 mls/hr x1, IV Na Chl 1,000 mls @ 75 mls/hr q13H. 11/4: IV Rocephin 50 mls @ 100 mls/hr q24H. 04/25: IV Daptomycin 50 mls @ 100 mls/hr q24H. Please clarify the etiology of the UTI, if known: [ ] UTI is due to Reyna catheter [ ] UTI is due to Urostomy [ ] UTI is not related to a Reyna Catheter or Urostomy [ ] Other condition, please specify: [ ] Unable to determine (Template Last Revised: August 2020) 04/30 Query response documented in the 04/29 Attending Physician Progress Note, Dr. Bustillo: Acute UTI, POA with failed outpatient therapy, most likely secondary to Urostomy. (CDS: PETER) MTDD
[2022-04-27 10:36] LABS: Basophils # (A) 0.03 X 10*3/uL (0.00-0.10); Basophils % (A) 0.4 %; Eosinophils # (A) 0 X 10*3/uL (0.04-0.35); Eosinophils % (A) 0 %; HCT 33.6 % (37.2-46.3); HGB 10.7 g/dL (12.0-15.0); Immature Grans, Automated 0.4 %; Lymphocytes # (A) 2.93 X 10*3/uL (0.90-5.00); Lymphocytes % (A) 38.6 %; MCH 29.7 pg (27.0-32.0); MCHC 31.8 g/dL (32.0-37.0); MCV 93.3 fL (80.0-97.0); Mean Platelet Volume 10.8 fL (9.5-12.2); Monocytes # (A) 0.63 X 10*3/uL (0.20-1.00); Monocytes % (A) 8.3 %; NRBC Per 100 WBC 0 /100 WBCS (0.0-0.0); Neutrophils # (A) 3.98 X 10*3/uL (1.80-7.70); Neutrophils % (A) 52.3 %; Platelet Count 297 X 10*3/uL (140-440)
[2022-04-27 10:46] LABS: African American GFR (CKD) 118.9 (60.0-200.0); Anion Gap 11.9 mmol/L (10.00-18.00); BUN/Creat Ratio 26.5 Ratio (12.00-20.00); Blood Urea Nitrogen 15.9 mg/dL (9.0-27.0); Calcium 9.1 mg/dL (8.7-10.3); Carbon Dioxide 27.1 mmol/L (20.0-27.5); Non-African American GFR(CKD) 102.6 (60.0-200.0); Potassium 3.3 mmol/L (3.5-5.5)
[2022-04-27 11:15] LABS: Glucose,Whole Blood 142 mg/dL (70-110)
[2022-04-27] MEDS: POTASSIUM CHLORIDE ER 20 MEQ TAB.ER PO SCH (13:14)
[2022-04-27] MEDS: TORSEMIDE 20 MG TAB PO SCH (13:15)
[2022-04-27 15:18] LABS: Glucose,Whole Blood 154 mg/dL (70-110)
[2022-04-27 17:19] LABS: Glucose,Whole Blood 92 mg/dL (70-110)
[2022-04-27 20:24] LABS: Glucose,Whole Blood 210 mg/dL (70-110)
[2022-04-27] MEDS: TRESIBA 100 UNIT/ML SQ SCH (21:00)
[2022-04-27] MEDS: METOPROLOL SUCCINATE (ER) 25 MG TAB.ER.24H PO SCH (21:01)
[2022-04-27] MEDS: LORATADINE 10 MG TAB PO SCH (21:01)
--- NOTE | 2022-04-28 05:41 | P.PN ---
Subjective Progress Note Date: 04/27/22 This is a pleasant 56-year-old female who recently presented to the emergency department feeling dehydrated and having increased diarrhea and recurrent urinary tract infections. Patient reports she has a urostomy and had been maintained on Levaquin for the past 10 days and was seen and evaluated in an outpatient clinic and given this and instructed to go to the ER although patient refused as she reports she was feeling slightly better from taking antibiotics. Patient reports she has frequent UTIs and follows with Dr. Reynolds in the outpatient setting. 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 Patient has had recurrent infections and ESBL along with MRSA of her buttock and leg regions. Patient reports she is wheelchair- bound and lives at home alone and has visiting nurses 4 days weekly in the home. Will consult infectious disease and appreciate input and recommendations this patient does have drug ALLERGIES to antibiotics and has had multiple recurrent infections. Urine cultures have been sent and pending at this time. Labs on admission reveal no white blood count of 5.0, hemoglobin stable at 12.5, sodium is 140, potassium 4.3, BUN 23, creatinine 0.71. Patient was admitted for IV antibiotics and urinary tract infection. 04/24/2022 Patient is seen and evaluated in follow-up this morning maintained on IV antibiotics in the form of ceftriaxone with anxiety following closely. Ted zaman awaiting on urine culture finalization determine proper antibiotics. Patient reports she had a large bowel movement yesterday with no further bowel movements and currently awaiting on a C. diff sample. Suspicion is low although will send a sample when not patient provides the specimen. Patient is currently afebrile reports generalized weakness and fatigue. Patient is tolerating diet although decreased oral intake with some intermittent nausea. Patient denies chest pain or shortness of breath. A.m. labs currently pending. Recommend to replace electrolytes per protocol. 04/25/2022 Patient is resting in bed. Awake alert and oriented. Hard of hearing. No complaints of nausea or vomiting. Patient did have episodes of diarrhea with loose stools today. Patient is Reyna catheter. Afebrile. No complaints of chest pain or shortness of breath. Still having generalized weakness. Laboratory test showed sodium 140 potassium 3.0. Chloride 107 BUN 14.3 and creatinine 0.5 and calcium 8.1 and magnesium 1.8. ID is on board. Continued on antibiotics in the form of ceftriaxone 2 g every 24 hours. And also on daptomycin. Urine culture showed E. coli and MRSA. 04/26/2022 Patient is resting in bed. Patient states that she had 1 episode of explosive watery diarrhea this morning. Denies any complaints of abdominal pain. No fever no chills. No nausea vomiting. No cough or sputum production. No chest pain or shortness of breath C. difficile toxin is negative. Continued on daptomycin and ceftriaxone. ID is on board. Lab data reviewed. 04/27/2022 Patient is seen and evaluated in follow-up today currently maintained on IV antibiotics with anxiety following an initial urine culture showing E. coli with MRSA awaiting repeat urinary culture to finalized to determine discharge antibiotics. Patient is having recurrent diarrhea and torsemide is being held. Potassium slightly low at 3.3 and will replace per protocol. Patient is afebrile denies chest pain or shortness of breath. WBC is within normal limits at 7.6. Patient is continued on daptomycin along with ceftriaxone while awaiting for finalized cultures. Will discuss with ID about discharge planning if patient will require IV antibiotics outpatient and will await finalized cultures. Encouraged oral intake. Review of systems: Constitutional: No reports of fatigue, fever, or chills Cardiovascular: No reports of chest pain or palpitations Respiratory: No reports of shortness of breath or cough GI: No reports of nausea, vomiting, reports diarrhea today : No reports of dysuria or retention Neurovascular: No reports of weakness or numbness All medications have been reviewed PHYSICAL EXAMINATION: GENERAL: The patient is alert and oriented x4, Well developed, well nourished. Wheelchair-bound, obese HEENT: Pupils are round and equally reacting to light. EOMI. no scleral icterus. No conjunctival pallor. Normocephalic, atraumatic. No pharyngeal erythema. No thyromegaly. CARDIOVASCULAR: S1 and S2 muffled PULMONARY: diminished breath sounds bilaterally with no wheezing or rhonchi noted. ABDOMEN: soft. Nontender on exam. obese. non-distended, normoactive bowel sounds. No palpable organomegaly. MUSCULOSKELETAL: No joint swelling or deformity. EXTREMITIES: No cyanosis, clubbing, or pedal edema. NEUROLOGICAL: Gross neurological examination did not reveal any focal deficits. SKIN: No rashes. Assessment: Dehydration, secondary to increased diarrhea Diarrhea, possibly gastroenteritis Hypokalemia Hypomagnesemia Acute urinary tract infection, present on admission with failed outpatient therapy, most likely secondary to urostomy Past history of MRSA and ESBL of the wounds recurrent urinary tract infections Asthma history, not in exacerbation Diabetes mellitus, type II, insulin-dependent Gastroesophageal reflux disease Musculoskeletal disorder History of spina bifida with hydrocephalus Chairi I malformation Chronic renal disease Sleep apnea with a CPAP GI prophylaxis DVT prophylaxis Full code Plan: Recommend to continue with current medications and management and infectious disease following and continued on ceftriaxone. Initial cultures showing ecoli with MRSA and ID following. Repeat urine ordered and pending. Urostomy bag is clear and yellow . Patient with diabetes recommend Accu-Cheks before meals and at bedtime and will resume home medications. Patient also chronically takes torsemide and will hold for now as electrolytes are off and patient reports diarrhea again. Cdiff testing was negative. Recommend repeat labs in am. Potassium and magnesium low today. Awaiting repeat finalized urine cultures. Due to multiple complex medical issues, prognosis is guarded. Further recommendations to follow based on the clinical course of the patient. The impression and plan of care has been dictated by Shefali Mccarty, nurse practitioner as directed. Dr. Keny MD I have performed a history and examination and MDM of this patient, discussed the same with the dictator, and agree with the dictator's assessment and plan as written ,documented as a scribe. Based on total visit time, I have performed more than 50% of the visit. Any additional findings or plans will be noted. Objective - Vital Signs Vital signs: Vital Signs Temp 98.4 F 04/27/22 04:20 Pulse 57 L 04/27/22 04:20 Resp 16 04/27/22 04:20 BP 104/62 04/27/22 04:20 Pulse Ox 98 04/27/22 04:20 FiO2 Intake & Output 04/26/22 04/27/22 04/27/22 18:59 06:59 18:59 Intake Total 160 Output Total 400 800 Balance -400 -640 Intake: IV 160 .9@20 160 Output: Urine 400 800 Other: Voiding Method Ileal Conduit (Right) Ileal Conduit (Right) Ileal Conduit (Right) # Bowel Movements 1 - Labs CBC & Chem 7: 04/27/22 06:41 04/27/22 06:41 Labs: Abnormal Lab Results - Last 24 Hours (Table) 04/26/22 04/26/22 04/27/22 Range/Units 17:50 20:02 06:41 RBC 3.60 L (4.10-5.20) X 10*6/uL Hgb 10.7 L (12.0-15.0) g/dL Hct 33.6 L (37.2-46.3) % MCHC 31.8 L (32.0-37.0) g/dL RDW 17.0 H (11.5-14.5) % Eosinophils # 0 L (0.04-0.35) X 10*3/uL Potassium (3.5-5.5) mmol/L BUN/Creatinine Ratio (12.00-20.00) Ratio POC Glucose (mg/dL) 123 H (70-110) mg/dL Urine Appearance Cloudy H (Clear) Urine Protein Trace H (Negative) Urine Blood Small H (Negative) Ur Leukocyte Esterase Large H (Negative) Urine RBC 41 H (0-5) /hpf Urine WBC >182 H (0-5) /hpf Urine WBC Clumps Many H (None) /hpf Urine Bacteria Many H (None) /hpf Hyaline Casts 6 H (0-2) /lpf 04/27/22 Range/Units 06:41 RBC (4.10-5.20) X 10*6/uL Hgb (12.0-15.0) g/dL Hct (37.2-46.3) % MCHC (32.0-37.0) g/dL RDW (11.5-14.5) % Eosinophils # (0.04-0.35) X 10*3/uL Potassium 3.3 L (3.5-5.5) mmol/L BUN/Creatinine Ratio 26.50 H (12.00-20.00) Ratio POC Glucose (mg/dL) (70-110) mg/dL Urine Appearance (Clear) Urine Protein (Negative) Urine Blood (Negative) Ur Leukocyte Esterase (Negative) Urine RBC (0-5) /hpf Urine WBC (0-5) /hpf Urine WBC Clumps (None) /hpf Urine Bacteria (None) /hpf Hyaline Casts (0-2) /lpf Microbiology - Last 24 Hours (Table) 04/23/22 04:45 Blood Culture - Preliminary Blood No Growth after 96 hours 04/26/22 17:50 Urine Culture - Preliminary Urine,Voided
[2022-04-28 07:15] LABS: Glucose,Whole Blood 77 mg/dL (70-110)
[2022-04-28] MEDS: NON FORMULARY DRUG (Methenamine Hippurate [Methenamine Hippurate] 1 GM Tablet) PO SCH ×2 (08:45→21:03)
[2022-04-28] MEDS: allopurinoL 300 MG TAB PO SCH (10:09)
[2022-04-28] MEDS: MULTIVITAMINS, THERA 1 EACH TAB PO SCH (10:10)
[2022-04-28] MEDS: LACTOBACILLUS ACIDOPH & BULGAR 1 EACH PACKET PO SCH (10:10)
[2022-04-28] MEDS: HEPARIN SODIUM,PORCINE/PF 5,000 UNIT/0.5 ML SYRINGE SQ SCH ×2 (10:10→20:21)
[2022-04-28] MEDS: PANTOPRAZOLE 40 MG TABLET PO SCH (10:10)
[2022-04-28] MEDS: LIRAGLUTIDE 0.6 MG/0.1 ML SQ SCH (10:12)
[2022-04-28] MEDS: AMMONIUM LACTATE 12% CREAM 140 GM TUBE TOPICAL SCH ×2 (10:59→20:22)
[2022-04-28] MEDS: NYSTATIN 100,000UNIT/GM CREAM 30 GM TUBE TOPICAL SCH ×2 (10:59→20:22)
[2022-04-28 11:19] LABS: Glucose,Whole Blood 83 mg/dL (70-110)
[2022-04-28 11:47] VITALS: BMI 37.3
[2022-04-28] MEDS ORDERED: CHOLESTYRAMINE (WITH SUGAR) 4 GM PACKET PO SCH (12:43)
[2022-04-28] MEDS: TORSEMIDE 20 MG TAB PO SCH (12:59)
[2022-04-28] MEDS ORDERED: LOPERAMIDE 2 MG CAP PO PRN (13:13)
[2022-04-28 14:46] LABS: Anion Gap 9.4 mmol/L (10.00-18.00); BUN/Creat Ratio 25.83 Ratio (12.00-20.00); Blood Urea Nitrogen 16.3 mg/dL (9.0-27.0); Calcium 8.7 mg/dL (8.7-10.3); Carbon Dioxide 26.2 mmol/L (20.0-27.5); Magnesium 1.6 mg/dL (1.5-2.4); Non-African American GFR(CKD) 100.9 (60.0-200.0); Potassium 3.8 mmol/L (3.5-5.5)
[2022-04-28 17:07] LABS: Glucose,Whole Blood 111 mg/dL (70-110)
[2022-04-28 20:17] LABS: Glucose,Whole Blood 133 mg/dL (70-110)
[2022-04-28] MEDS: LORATADINE 10 MG TAB PO SCH (20:21)
[2022-04-28] MEDS: METOPROLOL SUCCINATE (ER) 25 MG TAB.ER.24H PO SCH (20:21)
[2022-04-28] MEDS: TRESIBA 100 UNIT/ML SQ SCH (20:22)
[2022-04-28 21:04] VITALS: RESP 16
--- NOTE | 2022-04-29 06:44 | P.PN ---
Subjective Progress Note Date: 04/28/22 This is a pleasant 56-year-old female who recently presented to the emergency department feeling dehydrated and having increased diarrhea and recurrent urinary tract infections. Patient reports she has a urostomy and had been maintained on Levaquin for the past 10 days and was seen and evaluated in an outpatient clinic and given this and instructed to go to the ER although patient refused as she reports she was feeling slightly better from taking antibiotics. Patient reports she has frequent UTIs and follows with Dr. Reynolds in the outpatient setting. 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 Patient has had recurrent infections and ESBL along with MRSA of her buttock and leg regions. Patient reports she is wheelchair- bound and lives at home alone and has visiting nurses 4 days weekly in the home. Will consult infectious disease and appreciate input and recommendations this patient does have drug ALLERGIES to antibiotics and has had multiple recurrent infections. Urine cultures have been sent and pending at this time. Labs on admission reveal no white blood count of 5.0, hemoglobin stable at 12.5, sodium is 140, potassium 4.3, BUN 23, creatinine 0.71. Patient was admitted for IV antibiotics and urinary tract infection. 04/24/2022 Patient is seen and evaluated in follow-up this morning maintained on IV antibiotics in the form of ceftriaxone with anxiety following closely. Ted zaman awaiting on urine culture finalization determine proper antibiotics. Patient reports she had a large bowel movement yesterday with no further bowel movements and currently awaiting on a C. diff sample. Suspicion is low although will send a sample when not patient provides the specimen. Patient is currently afebrile reports generalized weakness and fatigue. Patient is tolerating diet although decreased oral intake with some intermittent nausea. Patient denies chest pain or shortness of breath. A.m. labs currently pending. Recommend to replace electrolytes per protocol. 04/25/2022 Patient is resting in bed. Awake alert and oriented. Hard of hearing. No complaints of nausea or vomiting. Patient did have episodes of diarrhea with loose stools today. Patient is Reyna catheter. Afebrile. No complaints of chest pain or shortness of breath. Still having generalized weakness. Laboratory test showed sodium 140 potassium 3.0. Chloride 107 BUN 14.3 and creatinine 0.5 and calcium 8.1 and magnesium 1.8. ID is on board. Continued on antibiotics in the form of ceftriaxone 2 g every 24 hours. And also on daptomycin. Urine culture showed E. coli and MRSA. 04/26/2022 Patient is resting in bed. Patient states that she had 1 episode of explosive watery diarrhea this morning. Denies any complaints of abdominal pain. No fever no chills. No nausea vomiting. No cough or sputum production. No chest pain or shortness of breath C. difficile toxin is negative. Continued on daptomycin and ceftriaxone. ID is on board. Lab data reviewed. 04/27/2022 Patient is seen and evaluated in follow-up today currently maintained on IV antibiotics with anxiety following an initial urine culture showing E. coli with MRSA awaiting repeat urinary culture to finalized to determine discharge antibiotics. Patient is having recurrent diarrhea and torsemide is being held. Potassium slightly low at 3.3 and will replace per protocol. Patient is afebrile denies chest pain or shortness of breath. WBC is within normal limits at 7.6. Patient is continued on daptomycin along with ceftriaxone while awaiting for finalized cultures. Will discuss with ID about discharge planning if patient will require IV antibiotics outpatient and will await finalized cultures. Encouraged oral intake. 04/28/2022 Patient is seen this morning in follow-up and magnesium is low and will replace. Patient reports continued episodes of diarrhea and questran was added and patient reports she was on questran for 30 years and weaned off of it. Will resume imodium. Patient is continued on IV abx and per ID patient will go home on a short course of oral abx. Encouraged oral intake. Patient is afebrile. Patient to be referred to GI outpatient. No reports of nausea or vomiting and tolerating diet. No chest pain or shortness of breath. Review of systems: Constitutional: No reports of fatigue, fever, or chills Cardiovascular: No reports of chest pain or palpitations Respiratory: No reports of shortness of breath or cough GI: No reports of nausea, vomiting, reports diarrhea today : No reports of dysuria or retention Neurovascular: No reports of weakness or numbness All medications have been reviewed PHYSICAL EXAMINATION: GENERAL: The patient is alert and oriented x4, Well developed, well nourished. Wheelchair-bound, obese HEENT: Pupils are round and equally reacting to light. EOMI. no scleral icterus. No conjunctival pallor. Normocephalic, atraumatic. No pharyngeal erythema. No thyromegaly. CARDIOVASCULAR: S1 and S2 muffled PULMONARY: diminished breath sounds bilaterally with no wheezing or rhonchi noted. ABDOMEN: soft. Nontender on exam. obese. non-distended, normoactive bowel sounds. No palpable organomegaly. MUSCULOSKELETAL: No joint swelling or deformity. EXTREMITIES: No cyanosis, clubbing, or pedal edema. NEUROLOGICAL: Gross neurological examination did not reveal any focal deficits. SKIN: No rashes. Assessment: Dehydration, secondary to increased diarrhea Diarrhea, possibly gastroenteritis Hypokalemia, improved Hypomagnesemia Acute urinary tract infection, present on admission with failed outpatient therapy, most likely secondary to urostomy Past history of MRSA and ESBL of the wounds recurrent urinary tract infections Asthma history, not in exacerbation Diabetes mellitus, type II, insulin-dependent Gastroesophageal reflux disease Musculoskeletal disorder History of spina bifida with hydrocephalus Chairi I malformation Chronic renal disease Sleep apnea with a CPAP GI prophylaxis DVT prophylaxis Full code Plan: Recommend to continue with current medications and management and infectious disease following and continued on ceftriaxone. Initial cultures showing ecoli with MRSA and ID following. Repeat urine ordered and are negative. ID recommending oral on discharge and prescriptions sent. Urostomy bag is clear and yellow . Recommend repeat labs in am. Replace magnesium today. Patient reports she can not take questran for diarrhea as it binds her up and she had been on that for 30 years. Will continue and resume imodium for the diarrhea. Due to multiple complex medical issues, prognosis is guarded. Further recommendations to follow based on the clinical course of the patient. Possible discharge in 24 hours. The impression and plan of care has been dictated by Shefali Mccarty, nurse practitioner as directed. Dr. Keny MD I have performed a history and examination and MDM of this patient, discussed the same with the dictator, and agree with the dictator's assessment and plan as written ,documented as a scribe. Based on total visit time, I have performed more than 50% of the visit. Any additional findings or plans will be noted. Objective - Vital Signs Vital signs: Vital Signs Temp 98.7 F 04/28/22 11:35 Pulse 66 04/28/22 11:35 Resp 18 04/28/22 11:35 BP 111/70 04/28/22 11:35 Pulse Ox 98 04/28/22 11:35 FiO2 Intake & Output 04/27/22 04/28/22 04/28/22 18:59 06:59 18:59 Output Total 1100 Balance -1100 Weight 84 kg Output: Urine 1100 Other: Voiding Method Ileal Conduit (Right) Ileal Conduit (Right) Ileal Conduit (Right) # Bowel Movements 1 - Labs CBC & Chem 7: 04/27/22 06:41 04/28/22 06:42 Labs: Abnormal Lab Results - Last 24 Hours (Table) 04/27/22 04/28/22 Range/Units 20:22 06:42 Anion Gap 9.40 L (10.00-18.00) mmol/L BUN/Creatinine Ratio 25.83 H (12.00-20.00) Ratio POC Glucose (mg/dL) 210 H (70-110) mg/dL Microbiology - Last 24 Hours (Table) 04/23/22 04:45 Blood Culture - Preliminary Blood No Growth after 120 hours 04/26/22 17:50 Urine Culture - Final Urine,Voided
[2022-04-29 07:15] LABS: Glucose,Whole Blood 81 mg/dL (70-110)
[2022-04-29] MEDS: PANTOPRAZOLE 40 MG TABLET PO SCH (08:53)
[2022-04-29] MEDS: HEPARIN SODIUM,PORCINE/PF 5,000 UNIT/0.5 ML SYRINGE SQ SCH ×2 (08:53→21:09)
[2022-04-29] MEDS: allopurinoL 300 MG TAB PO SCH ×2 (08:54→09:14)
[2022-04-29] MEDS: LACTOBACILLUS ACIDOPH & BULGAR 1 EACH PACKET PO SCH (08:54)
[2022-04-29] MEDS: MULTIVITAMINS, THERA 1 EACH TAB PO SCH (08:54)
[2022-04-29] MEDS: LIRAGLUTIDE 0.6 MG/0.1 ML SQ SCH (08:55)
[2022-04-29] MEDS: AMMONIUM LACTATE 12% CREAM 140 GM TUBE TOPICAL SCH ×2 (09:15→21:08)
[2022-04-29] MEDS ORDERED: Magnesium Replacement Protocol 1 EACH MISC MISCELLANE PRN (09:45)
[2022-04-29] MEDS: NON FORMULARY DRUG (Methenamine Hippurate [Methenamine Hippurate] 1 GM Tablet) PO SCH ×2 (10:34→21:14)
[2022-04-29] MEDS: NYSTATIN 100,000UNIT/GM CREAM 30 GM TUBE TOPICAL SCH ×2 (10:36→21:09)
[2022-04-29 11:24] LABS: Glucose,Whole Blood 111 mg/dL (70-110)
[2022-04-29] MEDS: MAGNESIUM SULFATE-D5W PMX 1 GM in DEXTROSE/WATER 1 100ML.BAG IVPB SCH ×2 (11:28→13:04)
[2022-04-29] MEDS: TORSEMIDE 20 MG TAB PO SCH (13:04)
[2022-04-29 16:18] LABS: Glucose,Whole Blood 84 mg/dL (70-110)
[2022-04-29 20:18] LABS: Glucose,Whole Blood 107 mg/dL (70-110)
[2022-04-29] MEDS: MAGNESIUM OXIDE 400 MG TAB PO SCH (21:08)
[2022-04-29] MEDS: METOPROLOL SUCCINATE (ER) 25 MG TAB.ER.24H PO SCH (21:09)
[2022-04-29] MEDS: LORATADINE 10 MG TAB PO SCH (21:09)
[2022-04-29] MEDS: TRESIBA 100 UNIT/ML SQ SCH (21:24)
[2022-04-30 05:28] VITALS: BP 100/60; PULSE 75; TEMP 98.5
--- NOTE | 2022-04-30 06:54 | P.PN ---
Subjective Progress Note Date: 04/29/22 This is a pleasant 56-year-old female who recently presented to the emergency department feeling dehydrated and having increased diarrhea and recurrent urinary tract infections. Patient reports she has a urostomy and had been maintained on Levaquin for the past 10 days and was seen and evaluated in an outpatient clinic and given this and instructed to go to the ER although patient refused as she reports she was feeling slightly better from taking antibiotics. Patient reports she has frequent UTIs and follows with Dr. Reynolds in the outpatient setting. 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 Patient has had recurrent infections and ESBL along with MRSA of her buttock and leg regions. Patient reports she is wheelchair- bound and lives at home alone and has visiting nurses 4 days weekly in the home. Will consult infectious disease and appreciate input and recommendations this patient does have drug ALLERGIES to antibiotics and has had multiple recurrent infections. Urine cultures have been sent and pending at this time. Labs on admission reveal no white blood count of 5.0, hemoglobin stable at 12.5, sodium is 140, potassium 4.3, BUN 23, creatinine 0.71. Patient was admitted for IV antibiotics and urinary tract infection. 04/24/2022 Patient is seen and evaluated in follow-up this morning maintained on IV antibiotics in the form of ceftriaxone with anxiety following closely. Ted zaman awaiting on urine culture finalization determine proper antibiotics. Patient reports she had a large bowel movement yesterday with no further bowel movements and currently awaiting on a C. diff sample. Suspicion is low although will send a sample when not patient provides the specimen. Patient is currently afebrile reports generalized weakness and fatigue. Patient is tolerating diet although decreased oral intake with some intermittent nausea. Patient denies chest pain or shortness of breath. A.m. labs currently pending. Recommend to replace electrolytes per protocol. 04/25/2022 Patient is resting in bed. Awake alert and oriented. Hard of hearing. No complaints of nausea or vomiting. Patient did have episodes of diarrhea with loose stools today. Patient is Reyna catheter. Afebrile. No complaints of chest pain or shortness of breath. Still having generalized weakness. Laboratory test showed sodium 140 potassium 3.0. Chloride 107 BUN 14.3 and creatinine 0.5 and calcium 8.1 and magnesium 1.8. ID is on board. Continued on antibiotics in the form of ceftriaxone 2 g every 24 hours. And also on daptomycin. Urine culture showed E. coli and MRSA. 04/26/2022 Patient is resting in bed. Patient states that she had 1 episode of explosive watery diarrhea this morning. Denies any complaints of abdominal pain. No fever no chills. No nausea vomiting. No cough or sputum production. No chest pain or shortness of breath C. difficile toxin is negative. Continued on daptomycin and ceftriaxone. ID is on board. Lab data reviewed. 04/27/2022 Patient is seen and evaluated in follow-up today currently maintained on IV antibiotics with anxiety following an initial urine culture showing E. coli with MRSA awaiting repeat urinary culture to finalized to determine discharge antibiotics. Patient is having recurrent diarrhea and torsemide is being held. Potassium slightly low at 3.3 and will replace per protocol. Patient is afebrile denies chest pain or shortness of breath. WBC is within normal limits at 7.6. Patient is continued on daptomycin along with ceftriaxone while awaiting for finalized cultures. Will discuss with ID about discharge planning if patient will require IV antibiotics outpatient and will await finalized cultures. Encouraged oral intake. 04/28/2022 Patient is seen this morning in follow-up and magnesium is low and will replace. Patient reports continued episodes of diarrhea and questran was added and patient reports she was on questran for 30 years and weaned off of it. Will resume imodium. Patient is continued on IV abx and per ID patient will go home on a short course of oral abx. Encouraged oral intake. Patient is afebrile. Patient to be referred to GI outpatient. No reports of nausea or vomiting and tolerating diet. No chest pain or shortness of breath. 04/29/2022 Patient is seen today and feeling somewhat improved and is reporting no diarrhea today. Patient is anxious about going home and the diarrhea reoccurring after being put on oral antibiotics as she reports this happens each time. Will refer to GI outpatient. Antibiotics unavailable in liquid form as patient requested and attempted to check other pharmacies as well. Patient is afebrile and denies chest pain or palpitations. No reports of shortness of breath. Will replace magnesium and have added oral supplements to the daily regimen. Review of systems: Constitutional: No reports of fatigue, fever, or chills Cardiovascular: No reports of chest pain or palpitations Respiratory: No reports of shortness of breath or cough GI: No reports of nausea, vomiting, no reports of diarrhea today : No reports of dysuria or retention Neurovascular: No reports of weakness or numbness All medications have been reviewed PHYSICAL EXAMINATION: GENERAL: The patient is alert and oriented x4, Well developed, well nourished. Wheelchair-bound, obese HEENT: Pupils are round and equally reacting to light. EOMI. no scleral icterus. No conjunctival pallor. Normocephalic, atraumatic. No pharyngeal erythema. No thyromegaly. CARDIOVASCULAR: S1 and S2 muffled PULMONARY: diminished breath sounds bilaterally with no wheezing or rhonchi noted. ABDOMEN: soft. Nontender on exam. obese. non-distended, normoactive bowel sounds. No palpable organomegaly. MUSCULOSKELETAL: No joint swelling or deformity. EXTREMITIES: No cyanosis, clubbing, or pedal edema. NEUROLOGICAL: Gross neurological examination did not reveal any focal deficits. SKIN: No rashes. Assessment: Dehydration, secondary to increased diarrhea Diarrhea, possibly gastroenteritis Hypokalemia, improved Hypomagnesemia Acute urinary tract infection, present on admission with failed outpatient therapy, most likely secondary to urostomy Past history of MRSA and ESBL of the wounds recurrent urinary tract infections Asthma history, not in exacerbation Diabetes mellitus, type II, insulin-dependent Gastroesophageal reflux disease Musculoskeletal disorder History of spina bifida with hydrocephalus Chairi I malformation Chronic renal disease Sleep apnea with a CPAP GI prophylaxis DVT prophylaxis Full code Plan: Recommend to continue with current medications and management and infectious disease following and continued on abx. Initial cultures showing ecoli with MRSA and ID following. Repeat urine ordered and are negative. ID recommending oral on discharge and prescriptions sent. Urostomy bag is clear and yellow . Recommend repeat labs in am. Replace magnesium today. Patient reports no diarrhea today. Due to multiple complex medical issues, prognosis is guarded. Further recommendations to follow based on the clinical course of the patient. Possible discharge in 24 hours. The impression and plan of care has been dictated by nurse jose Matos as directed. Dr. Keny MD I have performed a history and examination and MDM of this patient, discussed the same with the dictator, and agree with the dictator's assessment and plan as written ,documented as a scribe. Based on total visit time, I have performed more than 50% of the visit. Any additional findings or plans will be noted. Objective - Vital Signs Vital signs: Vital Signs Temp 98.0 F 04/29/22 07:46 Pulse 60 04/29/22 07:46 Resp 16 04/29/22 07:46 BP 118/74 04/29/22 07:46 Pulse Ox 97 04/29/22 05:00 FiO2 Intake & Output 04/28/22 04/29/22 04/29/22 18:59 06:59 18:59 Intake Total 340 200 Output Total 500 1275 Balance -160 -1075 Weight 84 kg Intake: IV 240 .9@20 240 Intake, IV Titration 100 Amount DAPTOmycin 250 mg In 50 Sodium Chloride 0.9% 50 ml @ 100 mls/hr IVPB Q24H [facility] Rx#:[id number] cefTRIAXone 2 gm In 50 Sodium Chloride 0.9% 50 ml @ 100 mls/hr IVPB Q24HR [facility] Rx#:[id number] Oral 200 Output: Urine 500 1275 Other: Voiding Method Ileal Conduit (Right) Self-Catheterization - Labs CBC & Chem 7: 04/27/22 06:41 04/28/22 06:42 Labs: Abnormal Lab Results - Last 24 Hours (Table) 04/28/22 04/28/22 04/28/22 Range/Units 06:42 17:06 20:16 Anion Gap 9.40 L (10.00-18.00) mmol/L BUN/Creatinine Ratio 25.83 H (12.00-20.00) Ratio POC Glucose (mg/dL) 111 H 133 H (70-110) mg/dL Microbiology - Last 24 Hours (Table) 04/23/22 04:45 Blood Culture - Final Blood No Growth after 144 hours
[2022-04-30 07:23] LABS: Glucose,Whole Blood 88 mg/dL (70-110)
[2022-04-30] MEDS: LACTOBACILLUS ACIDOPH & BULGAR 1 EACH PACKET PO SCH (08:34)
[2022-04-30] MEDS: MAGNESIUM OXIDE 400 MG TAB PO SCH (08:35)
[2022-04-30] MEDS: HEPARIN SODIUM,PORCINE/PF 5,000 UNIT/0.5 ML SYRINGE SQ SCH (08:35)
[2022-04-30] MEDS: PANTOPRAZOLE 40 MG TABLET PO SCH (08:35)
[2022-04-30] MEDS: allopurinoL 300 MG TAB PO SCH (08:35)
[2022-04-30] MEDS: MULTIVITAMINS, THERA 1 EACH TAB PO SCH (08:35)
[2022-04-30] MEDS: NYSTATIN 100,000UNIT/GM CREAM 30 GM TUBE TOPICAL SCH (08:36)
[2022-04-30] MEDS: AMMONIUM LACTATE 12% CREAM 140 GM TUBE TOPICAL SCH (08:36)
[2022-04-30] MEDS: NON FORMULARY DRUG (Methenamine Hippurate [Methenamine Hippurate] 1 GM Tablet) PO SCH (08:48)
[2022-04-30] MEDS: LIRAGLUTIDE 0.6 MG/0.1 ML SQ SCH (09:15)
[2022-04-30 11:57] LABS: Glucose,Whole Blood 99 mg/dL (70-110)
[2022-04-30] MEDS: TORSEMIDE 20 MG TAB PO SCH (12:39)
--- NOTE | 2022-05-01 18:14 | P.DS ---
Providers Date of admission: 04/23/22 04:47 Expected date of discharge: 04/30/22 Attending physician: Ken Forbes MD Consults: 04/23/22 14:13 Consult Physician Urgent Consulting Provider: Jania Polo Consult Reason/Comments: UTI, recurrent, drug allergies, esbl, mrsa in the past Do you want consulting provider notified?: Yes Primary care physician: Barrington Noble [facility] Course: Final diagnosis Dehydration, secondary to increased diarrhea Diarrhea, possibly gastroenteritis Hypokalemia, improved Hypomagnesemia Acute urinary tract infection, present on admission with failed outpatient therapy, most likely secondary to urostomy Past history of MRSA and ESBL of the wounds recurrent urinary tract infections Asthma history, not in exacerbation Diabetes mellitus, type II, insulin-dependent Gastroesophageal reflux disease Musculoskeletal disorder History of spina bifida with hydrocephalus Chairi I malformation Chronic renal disease Sleep apnea with a CPAP GI prophylaxis DVT prophylaxis Full code Discharge disposition Patient is being discharged in a stable condition with guarded prognosis to home with home care. Patient will follow-up with in the outpatient setting upon discharge. Patient is to follow up with GI and Dr. Polo as scheduled. Patient will continue on zyvox and cefuroximeTotal time taken is greater than 35 minutes. Hospital course This is a 56-year-old female who was recently admitted with weakness and dehydration and diarrhea with uti and was being closely monitored. Patient had been on levaquin outpatient and worsened. Patient was treated with IV abx with ID following and repeat culture is negative. Recommend outpatient follow up with urology as well as GI and ID as scheduled. Patient started on mag oxide oral and will continue. Diuretics decreased to half. Recommend follow up with pcp this week and repeat labs. Continue with imodium. Currently no reports of chest pain, shortness of breath, or palpitations. Patient is afebrile. No reports of nausea or vomiting and patient is tolerating diet. Patient will be discharged home today. Guarded prognosis Physical exam: Gen: This is a 56 year old female who is awake and alert and oriented x 3, well developed, well nourished, obese HEENT: Head is atraumatic, normocephalic. Pupils equal, round. Sclerae is anicteric. NECK: Supple. No JVD. No lymphadenopathy. No thyromegaly. LUNGS: Clear to auscultation. No wheezes or rhonchi. No intercostal retractions. HEART: Regular rate and rhythm. No murmur. ABDOMEN: Soft. Bowel sounds are present. No masses. No tenderness. EXTREMITIES: No pedal edema. No calf tenderness. NEUROLOGICAL: Patient is awake, alert and oriented x3. Cranial nerves 2 through 12 are grossly intact. Wheel chair bound Please refer to medication reconciliation sheet for a list of medications. The impression and plan of care has been dictated by Shefali Mccarty, Nurse Practitioner as directed. Dr. Keny MD I have performed a history and examination and MDM of this patient, discussed the same with the dictator, and agree with the dictator's assessment and plan as written ,documented as a scribe. Based on total visit time, I have performed more than 50% of the visit. Patient Condition at Discharge: Stable Plan - Discharge Summary New Discharge Prescriptions: New cefUROXime axetiL [Cefuroxime] 500 mg PO BID #14 tab Linezolid [Zyvox] 600 mg PO Q12H #14 tab Magnesium Oxide [Mag-Ox] 400 mg PO BID 30 Days #60 tab Acetaminophen Tab [Tylenol] 650 mg PO Q6HR PRN tab PRN Reason: Mild Pain Or Fever > 100.5 Continue Cetirizine HCl [Zyrtec] 5 mg PO DAILY Omeprazole [PriLOSEC] 20 mg PO DAILY Liraglutide [Victoza 2-Raul] 1.8 mg SQ DAILY allopurinoL [Zyloprim] 300 mg PO DAILY Loperamide [Imodium] 1 - 2 mg PO QID PRN PRN Reason: Diarrhea Glucosamine/Chondr Choi A Sod [Osteo Bi-Flex Caplet] 1 tab PO DAILY Metoprolol Succinate [Toprol XL] 25 mg PO HS Fish Oil/Dha/Epa [Fish Oil 1,200 mg Fish Oil] 1 cap PO DAILY Cranberry Fruit Extract [Cranberry] 500 mg PO DAILY Methenamine Hippurate 1 gm PO BID Ammonium Lactate Cream [Lac-Hydrin 12% Cream] 1 applic TOPICAL BID Nystatin 100,000Unit/gm Cream [Mycostatin Cream] 1 applic TOPICAL BID Multivit with Calcium,Iron,Min [Women's Multivitamin] 1 tab PO DAILY Lactobacillus Acidophilus [Acidophilus] 1 tab PO DAILY Changed Insulin Degludec [Tresiba Flextouch U-100 Pen] 20 units SQ DAILY #0 Torsemide [Demadex] 20 mg PO BID 30 Days #60 tab Potassium Chloride [Klor-Con M20] 40 meq PO DAILY #0 Discontinued Torsemide [Demadex] 60 mg PO BID Cholestyramine (with Sugar) [Questran Packet] 4 - 8 gm PO DIRECTED glipiZIDE [Glucotrol] 1.67 - 5 mg PO DAILY PRN PRN Reason: Blood Sugar - High Azithromycin [Zithromax] See Taper PO DIRECTED levoFLOXacin 500 mg PO DAILY Potassium Chloride [Klor-Con M20] 60 meq PO DIRECTED Discharge Medication List Cetirizine HCl [Zyrtec] 5 mg PO DAILY 10/04/14 [History] Liraglutide [Victoza 2-Raul] 1.8 mg SQ DAILY 10/04/14 [History] Omeprazole [PriLOSEC] 20 mg PO DAILY 10/04/14 [History] allopurinoL [Zyloprim] 300 mg PO DAILY 10/04/14 [History] Glucosamine/Chondr Choi A Sod [Osteo Bi-Flex Caplet] 1 tab PO DAILY 08/09/15 [History] Loperamide [Imodium] 1 - 2 mg PO QID PRN 08/09/15 [History] Metoprolol Succinate [Toprol XL] 25 mg PO HS 08/09/15 [History] Ammonium Lactate Cream [Lac-Hydrin 12% Cream] 1 applic TOPICAL BID 04/23/22 [History] Cranberry Fruit Extract [Cranberry] 500 mg PO DAILY 04/23/22 [History] Fish Oil/Dha/Epa [Fish Oil 1,200 mg Fish Oil] 1 cap PO DAILY 04/23/22 [History] Lactobacillus Acidophilus [Acidophilus] 1 tab PO DAILY 04/23/22 [History] Methenamine Hippurate 1 gm PO BID 04/23/22 [History] Multivit with Calcium,Iron,Min [Women's Multivitamin] 1 tab PO DAILY 04/23/22 [History] Nystatin 100,000Unit/gm Cream [Mycostatin Cream] 1 applic TOPICAL BID 04/23/22 [History] Linezolid [Zyvox] 600 mg PO Q12H #14 tab 04/27/22 [Rx] cefUROXime axetiL [Cefuroxime] 500 mg PO BID #14 tab 04/27/22 [Rx] Acetaminophen Tab [Tylenol] 650 mg PO Q6HR PRN tab 04/30/22 [Rx] Insulin Degludec [Tresiba Flextouch U-100 Pen] 20 units SQ DAILY #0 04/30/22 [Rx] Magnesium Oxide [Mag-Ox] 400 mg PO BID 30 Days #60 tab 04/30/22 [Rx] Potassium Chloride [Klor-Con M20] 40 meq PO DAILY #0 04/30/22 [Rx] Torsemide [Demadex] 20 mg PO BID 30 Days #60 tab 04/30/22 [Rx] Follow up Appointment(s)/Referral(s): Giuliana Canada MD [STAFF PHYSICIAN] - 1 Week (Patient will have to call and schedule own appt) Barrington Noble DO [Primary Care Provider] - 1-2 days (Patient will have to make own appt.) Jania Polo MD [STAFF PHYSICIAN] - 05/13/22 9:15 am ([phone] call to make appointment) [facility] Visiting Nurse, [NON-STAFF] - 1 Week (Agency will contact you.) Ambulatory/Diagnostic Orders: Basic Metabolic Panel [LAB.AMB] Time Frame: 3 Days, Location: None Selected Patient Instructions/Handouts: Cefuroxime (By mouth), Torsemide (By mouth), Linezolid (By mouth), Magnesium Oxide (By mouth), Dehydration (DC), Urinary Tract Infection in Women (DC) Activity/Diet/Wound Care/Special Instructions: Activity Limited until follow-up Follow-up with primary care provider on discharge Follow-up with urology outpatient Follow-up with GI outpatient Follow-up with infectious disease outpatient Continue taking antibiotics until finished Recommend repeat labs in next 2-3 days Continue monitoring Accu-Cheks before meals and at bedtime and keep a diary of all blood sugar readings Discharge Disposition: HOME WITH HOME HEALTH SERVICES
== END 2022-04-30 14:45 | disposition home health service (06) | DRG 699 ==
LOC: EC 02:53 → 5NMEDONC 04:47
PROVIDERS: ADMIT Internal Medicine; ATTEND Internal Medicine
DX: T83.518A Infection and inflammatory reaction due to other urinary catheter, initial encounter (principal); N39.0 Urinary tract infection, site not specified; Q05.4 Unspecified spina bifida with hydrocephalus; T88.6XXA Anaphylactic reaction due to adverse effect of correct drug or medicament properly administered, initial encounter; E86.0 Dehydration; Y84.6 Urinary catheterization as the cause of abnormal reaction of the patient, or of later complication, without mention of misadventure at the time of the procedure; E11.22 Type 2 diabetes mellitus with diabetic chronic kidney disease; J42 Unspecified chronic bronchitis; Z93.6 Other artificial openings of urinary tract status; Z79.4 Long term (current) use of insulin; K52.9 Noninfective gastroenteritis and colitis, unspecified; B96.20 Unspecified Escherichia coli [E. coli] as the cause of diseases classified elsewhere; R13.10 Dysphagia, unspecified; K21.9 Gastro-esophageal reflux disease without esophagitis; G47.30 Sleep apnea, unspecified; M10.9 Gout, unspecified; B95.62 Methicillin resistant Staphylococcus aureus infection as the cause of diseases classified elsewhere; E83.42 Hypomagnesemia; F41.9 Anxiety disorder, unspecified; J45.909 Unspecified asthma, uncomplicated; N18.9 Chronic kidney disease, unspecified; E87.6 Hypokalemia; K44.9 Diaphragmatic hernia without obstruction or gangrene; Z93.3 Colostomy status; Z90.49 Acquired absence of other specified parts of digestive tract; Z91.040 Latex allergy status; Z88.2 Allergy status to sulfonamides; Z88.1 Allergy status to other antibiotic agents; Z88.0 Allergy status to penicillin; Z79.84 Long term (current) use of oral hypoglycemic drugs; Z79.899 Other long term (current) drug therapy; Z87.440 Personal history of urinary (tract) infections; Z87.01 Personal history of pneumonia (recurrent); Z86.19 Personal history of other infectious and parasitic diseases; Z91.018 Allergy to other foods; Z88.8 Allergy status to other drugs, medicaments and biological substances; T36.8X5A Adverse effect of other systemic antibiotics, initial encounter; Z86.14 Personal history of Methicillin resistant Staphylococcus aureus infection; Z87.442 Personal history of urinary calculi; Z99.3 Dependence on wheelchair
CPT/HCPCS: 36415; 80048; 80053; 81001; 83036; 83735; 84132; 85025; 87040; 87077; 87086; 87186; 87324; 96361; 96365; 96375; 99285

== ENCOUNTER 2022-05-28 11:55 | Inpatient (IN) | payer MEDICARE, OTHER ==
[2022-05-28 14:00] LABS: ALT 15 U/L (4-34); AST 23 U/L (14-36); African American GFR (CKD) >90 (>60 ml/min/1.73 sqM); Albumin 2.8 g/dL (3.5-5.0); Alkaline Phosphatase 173 U/L (38-126); Amylase 36 U/L (30-110); Anion Gap 5 mmol/L; Blood Urea Nitrogen 19 mg/dL (7-17); Calcium 7.9 mg/dL (8.4-10.2); Carbon Dioxide 24 mmol/L (22-30); Chloride 111 mmol/L (98-107); Glucose 63 mg/dL (74-99); Lipase 64 U/L (23-300); Non-African American GFR(CKD) 83 (>60 ml/min/1.73 sqM); Potassium 3.7 mmol/L (3.5-5.1); Sodium 140 mmol/L (137-145); Total Bilirubin 0.5 mg/dL (0.2-1.3); Total Protein 6.8 g/dL (6.3-8.2)
[2022-05-28 14:01] LABS: Appearance,Urine Turbid (Clear); Bacteria,Urine Many /hpf; Bilirubin,Urine Negative (Negative); Blood,Urine Moderate (Negative); Color,Urine Light Yellow; Glucose,Urine (UA) Negative (Negative); Ketones,Urine Negative (Negative); Leukocyte Esterase,Urine Large (Negative); Nitrite,Urine Negative (Negative); PH, Urine 6.5 (5.0-8.0); Protein,Urine 1+ (Negative); RBC,Urine 67 /hpf (0-5); Specific Gravity,Urine 1.016 (1.001-1.035); Urobilinogen,Urine <2.0 mg/dL (<2.0); WBC,Urine >182 /hpf (0-5)
[2022-05-28 14:26] LABS: Anisocytosis Slight; Basophils # (A) 0.1 k/uL (0-0.2); Basophils % (A) 1 %; Eosinophils % (A) 0 %; HCT 36.2 % (34.0-46.0); HGB 11.5 gm/dL (11.4-16.0); Hypochromasia Slight; Lymphocytes # (A) 2.2 k/uL (1.0-4.8); Lymphocytes % (A) 29 %; MCH 29.6 pg (25.0-35.0); MCHC 31.7 g/dL (31.0-37.0); MCV 93.3 fL (80.0-100.0); Mean Platelet Volume 10.2; Monocytes # (A) 0.6 k/uL (0-1.0); Monocytes % (A) 8 %; Neutrophils # (A) 4.3 k/uL (1.3-7.7); Neutrophils % (A) 58 %; Platelet Count 368 k/uL (150-450); RBC 3.87 m/uL (3.80-5.40); RDW 16.7 % (11.5-15.5); WBC 7.4 k/uL (3.8-10.6)
[2022-05-28] MEDS ORDERED: SODIUM CHLORIDE 0.9% 1,000 ML IV ONE (16:20)
[2022-05-28] MEDS ORDERED: cefTRIAXone IN SWFI 1,000 MG/10 ML SYRINGE IVP STA (16:23)
[2022-05-28 16:45] LABS: Glucose,Whole Blood 69 mg/dL (70-110)
[2022-05-28] MEDS: SODIUM CHLORIDE 0.9% 1,000 ML IV SCH (19:20)
[2022-05-28 19:27] LABS: Glucose,Whole Blood 87 mg/dL (70-110)
--- NOTE | 2022-05-28 19:35 | ED ---
General Adult HPI - General Chief complaint: Recheck/Abnormal Lab/Rx Stated complaint: sent from Wound Care Time Seen by Provider: 05/28/22 16:04 Source: patient Mode of arrival: wheelchair Limitations: no limitations - History of Present Illness Initial comments: Patient is a 56-year-old female with history of diabetes, pressure ulcers, asthma, recurrent UTIs presenting from wound care for concerns of worsening bedsore. Patient was seen in wound care today, the provider was concerned for worsening wounds to the right. Patient states that she has had recurrent diarrhea, which has been making keeping the wound clean more difficult. Patient has also been on multiple antibiotics recently due to recurrent UTI. It was noted by triage that her urostomy bag had some thick purulent urine. At this time after the back has been attempted urine appears clear. No abdominal pain, nausea, vomiting, fever, chills, flank pain, chest pain, difficulty breathing. - Related Data Home Medications Medication Instructions Recorded Confirmed Cetirizine HCl [Zyrtec] 5 mg PO DAILY 10/04/14 05/28/22 Liraglutide [Victoza 2-Raul] 1.8 mg SQ DAILY 10/04/14 05/28/22 Omeprazole [PriLOSEC] 20 mg PO DAILY 10/04/14 05/28/22 allopurinoL [Zyloprim] 300 mg PO DAILY 10/04/14 05/28/22 Glucosamine/Chondr Choi A Sod [Osteo 1 tab PO DAILY 08/09/15 05/28/22 Bi-Flex Caplet] Loperamide [Imodium] 1 - 2 mg PO QID PRN 08/09/15 05/28/22 Metoprolol Succinate [Toprol XL] 25 mg PO HS 08/09/15 05/28/22 Ammonium Lactate Cream [Lac-Hydrin 1 applic TOPICAL BID 04/23/22 05/28/22 12% Cream] Cranberry Fruit Extract [Cranberry] 500 mg PO DAILY 04/23/22 05/28/22 Fish Oil/Dha/Epa [Fish Oil 1,200 1 cap PO DAILY 04/23/22 05/28/22 mg Fish Oil] Lactobacillus Acidophilus 1 tab PO DAILY 04/23/22 05/28/22 [Acidophilus] Methenamine Hippurate 1 gm PO BID 04/23/22 05/28/22 Multivit with Calcium,Iron,Min 1 tab PO DAILY 04/23/22 05/28/22 [Women's Multivitamin] Nystatin 100,000Unit/gm Cream 1 applic TOPICAL BID 04/23/22 05/28/22 [Mycostatin Cream] Insulin Degludec [Tresiba 10 - 20 units SQ HS 05/28/22 05/28/22 Flextouch U-100 Pen] Previous Rx's Medication Instructions Recorded Acetaminophen Tab [Tylenol] 650 mg PO Q6HR PRN tab 04/30/22 Magnesium Oxide [Mag-Ox] 400 mg PO BID 30 Days #60 tab 04/30/22 Potassium Chloride [Klor-Con M20] 40 meq PO DAILY #0 04/30/22 Torsemide [Demadex] 20 mg PO BID 30 Days #60 tab 04/30/22 Allergies Allergy/AdvReac Type Severity Reaction Status Date / Time amoxicillin trihydrate Allergy Rash/Hives Verified 05/28/22 17:24 [From Augmentin] banana Allergy Unknown Verified 05/28/22 17:24 chestnut Allergy Unknown Verified 05/28/22 17:24 ciprofloxacin [From Cipro] Allergy Rash/Hives Verified 05/28/22 17:24 ciprofloxacin HCl Allergy Rash/Hives Verified 05/28/22 17:24 [From Cipro] kiwi Allergy Unknown Verified 05/28/22 17:24 Latex, Natural Rubber Allergy Anaphylaxis Verified 05/28/22 17:24 methylprednisolone Allergy Rash/Hives Verified 05/28/22 17:24 [From Solu-Medrol] nitrofurantoin Allergy Rash/Hives Verified 05/28/22 17:24 macrocrystalline [From Macrodantin] potassium clavulanate Allergy Rash/Hives Verified 05/28/22 17:24 [From Augmentin] Sulfa (Sulfonamide Allergy Rash/Hives Verified 05/28/22 17:24 Antibiotics) vancomycin Allergy Anaphylaxis Verified 05/28/22 17:24 Beef Containing Products AdvReac Diarrhea Verified 05/28/22 17:24 [Beef] midazolam HCl [From Versed] AdvReac very Verified 05/28/22 17:24 combative, disoriented sucralose AdvReac Diarrhea Verified 05/28/22 17:24 [From Splenda (sucralose)] callagen Allergy Rash/Hives Uncoded 05/28/22 17:24 Review of Systems ROS Statement: Those systems with pertinent positive or pertinent negative responses have been documented in the HPI. ROS Other: All systems not noted in ROS Statement are negative. Past Medical History Past Medical History: Asthma, Diabetes Mellitus, GERD/Reflux, Musculoskeletal D isorder, Neurologic Disorder, Pneumonia, Renal Disease, Sleep Apnea/CPAP/BIPAP Additional Past Medical History / Comment(s): 08-09-15 admitted with cellulitis of external nose. other pst medical hx includes: hx. 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, MRSA Date of last positivie culture/infection: 07/07/21 MRSA 01/07/15 ESBL MDRO Source:: MRSA BUTTOCK, ESBL LEG Past Surgical History: Back Surgery, Bowel Resection, Orthopedic Surgery Additional Past Surgical History / Comment(s): multiple surgeries for hydrocephalus, urostomy x 2, multiple hip,leg, foot surgeries, ankles fused, [facility] shunt, pt stated back sx was to remove spina bifida growth, egd Past Anesthesia/Blood Transfusion Reactions: No Reported Reaction Past Psychological History: No Psychological Hx Reported Smoking Status: Never smoker Past Alcohol Use History: None Reported Past Drug Use History: None Reported - Past Family History Father Family Medical History: Hypertension Additional Family Medical History / Comment(s): gout, heart murmur, rheumatic fever as child, tia Mother Family Medical History: Cancer, Hypertension Additional Family Medical History / Comment(s): interstitial cystitis, breast cancer x2, diet controlled diabetic, hiatal hernia General Exam Limitations: no limitations General appearance: alert, in no apparent distress Head exam: Present: atraumatic, normocephalic, normal inspection Eye exam: Present: normal appearance, PERRL, EOMI. Absent: scleral icterus, conjunctival injection, periorbital swelling Neck exam: Present: normal inspection Respiratory exam: Present: normal lung sounds bilaterally. Absent: respiratory distress, wheezes, rales, rhonchi, stridor Cardiovascular Exam: Present: regular rate, normal rhythm, normal heart sounds. Absent: systolic murmur, diastolic murmur, rubs, gallop, clicks GI/Abdominal exam: Present: soft. Absent: distended, tenderness, guarding, rebound, rigid Neurological exam: Present: alert, oriented X3, CN II-XII intact Psychiatric exam: Present: normal affect, normal mood Skin exam: Present: other (stage III pressure ulcer to the right buttock, redness and skin breakdown near the gluteal crease) Course Vital Signs 05/28/22 12:19 Temperature 98.7 F Pulse Rate 75 Respiratory 20 Rate Blood Pressure 111/57 O2 Sat by Pulse 100 Oximetry Medical Decision Making - Medical Decision Making Patient is a 56-year-old female sent here by wound care for concerns of w orsening pressure ulcer. Patient has also had recurrent diarrhea due to multiple antibiotics, she states that this has made keeping her wounds clean difficult. On physical exam there is a stage III pressure ulcer to the right buttock's, and also some redness and skin breakdown noted to the buttocks near midline. CBC shows no leukocytosis or anemia. Patient is hypoglycemic, she is given food and juice, on recheck glucose is 87. Calcium is 7.9, corrected calcium is 8.9. UA shows signs of infection, moderate blood and large leukocytes, urine sent for culture. Patient was previously treated with Rocephin and daptomycin during her recent admission, doses are given here in the ER. I spoke with Dr. Rojas who agreed to admit the patient. Patient is agreeable with this plan. I discussed this case with my attending Dr. Jimenes - Lab Data Result diagrams: 05/28/22 13:26 05/28/22 13:26 Lab Results 05/28/22 05/28/22 05/28/22 Range/Units 13:26 13:26 13:26 WBC 7.4 (3.8-10.6) k/uL RBC 3.87 (3.80-5.40) m/uL Hgb 11.5 (11.4-16.0) gm/dL Hct 36.2 (34.0-46.0) % MCV 93.3 (80.0-100.0) fL MCH 29.6 (25.0-35.0) pg MCHC 31.7 (31.0-37.0) g/dL RDW 16.7 H (11.5-15.5) % Plt Count 368 (150-450) k/uL MPV 10.2 Neutrophils % 58 % Lymphocytes % 29 % Monocytes % 8 % Eosinophils % 0 % Basophils % 1 % Neutrophils # 4.3 (1.3-7.7) k/uL Lymphocytes # 2.2 (1.0-4.8) k/uL Monocytes # 0.6 (0-1.0) k/uL Eosinophils # 0.0 (0-0.7) k/uL Basophils # 0.1 (0-0.2) k/uL Manual Slide Review Performed Hypochromasia Slight Anisocytosis Slight Sodium 140 (137-145) mmol/L Potassium 3.7 (3.5-5.1) mmol/L Chloride 111 H (98-107) mmol/L Carbon Dioxide 24 (22-30) mmol/L Anion Gap 5 mmol/L BUN 19 H (7-17) mg/dL Creatinine 0.81 (0.52-1.04) mg/dL Est GFR (CKD-EPI)AfAm >90 (>60 ml/min/1.73 sqM) Est GFR (CKD-EPI)NonAf 83 (>60 ml/min/1.73 sqM) Glucose 63 L (74-99) mg/dL POC Glucose (mg/dL) (70-110) mg/dL POC Glu Shoes Salesperson ID Calcium 7.9 L (8.4-10.2) mg/dL Total Bilirubin 0.5 (0.2-1.3) mg/dL AST 23 (14-36) U/L ALT 15 (4-34) U/L Alkaline Phosphatase 173 H (38-126) U/L Total Protein 6.8 (6.3-8.2) g/dL Albumin 2.8 L (3.5-5.0) g/dL Amylase 36 (30-110) U/L Lipase 64 (23-300) U/L Urine Color Light Yellow Urine Appearance Turbid H (Clear) Urine pH 6.5 (5.0-8.0) Ur Specific [place] 1.016 (1.001-1.035) Urine Protein 1+ H (Negative) Urine Glucose (UA) Negative (Negative) Urine Ketones Negative (Negative) Urine Blood Moderate H (Negative) Urine Nitrite Negative (Negative) Urine Bilirubin Negative (Negative) Urine Urobilinogen <2.0 (<2.0) mg/dL Ur Leukocyte Esterase Large H (Negative) Urine RBC 67 H (0-5) /hpf Urine WBC >182 H (0-5) /hpf Urine WBC Clumps Few H (None) /hpf Urine Bacteria Many H (None) /hpf 05/28/22 05/28/22 Range/Units 16:43 19:25 WBC (3.8-10.6) k/uL RBC (3.80-5.40) m/uL Hgb (11.4-16.0) gm/dL Hct (34.0-46.0) % MCV (80.0-100.0) fL MCH (25.0-35.0) pg MCHC (31.0-37.0) g/dL RDW (11.5-15.5) % Plt Count (150-450) k/uL MPV Neutrophils % % Lymphocytes % % Monocytes % % Eosinophils % % Basophils % % Neutrophils # (1.3-7.7) k/uL Lymphocytes # (1.0-4.8) k/uL Monocytes # (0-1.0) k/uL Eosinophils # (0-0.7) k/uL Basophils # (0-0.2) k/uL Manual Slide Review Hypochromasia Anisocytosis Sodium (137-145) mmol/L Potassium (3.5-5.1) mmol/L Chloride (98-107) mmol/L Carbon Dioxide (22-30) mmol/L Anion Gap mmol/L BUN (7-17) mg/dL Creatinine (0.52-1.04) mg/dL Est GFR (CKD-EPI)AfAm (>60 ml/min/1.73 sqM) Est GFR (CKD-EPI)NonAf (>60 ml/min/1.73 sqM) Glucose (74-99) mg/dL POC Glucose (mg/dL) 69 L 87 (70-110) mg/dL POC Glu Shoes Salesperson NAI DenilsonRd burr Jason Calcium (8.4-10.2) mg/dL Total Bilirubin (0.2-1.3) mg/dL AST (14-36) U/L ALT (4-34) U/L Alkaline Phosphatase (38-126) U/L Total Protein (6.3-8.2) g/dL Albumin (3.5-5.0) g/dL Amylase (30-110) U/L Lipase (23-300) U/L Urine Color Urine Appearance (Clear) Urine pH (5.0-8.0) Ur Specific [place] (1.001-1.035) Urine Protein (Negative) Urine Glucose (UA) (Negative) Urine Ketones (Negative) Urine Blood (Negative) Urine Nitrite (Negative) Urine Bilirubin (Negative) Urine Urobilinogen (<2.0) mg/dL Ur Leukocyte Esterase (Negative) Urine RBC (0-5) /hpf Urine WBC (0-5) /hpf Urine WBC Clumps (None) /hpf Urine Bacteria (None) /hpf Disposition Clinical Impression: UTI (urinary tract infection), Pressure ulcer of left buttock, stage 3, Diarrhea Disposition: ADMITTED IP TO THIS HOSP Condition: Fair Referrals: Barrington Noble DO [Primary Care Provider] - 1-2 days Time of Disposition: 19:56 Decision to Admit Reason: Admit from EC Decision Date: 05/28/22 Decision Time: 19:56
[2022-05-28] MEDS ORDERED: NALOXONE 0.4 MG/ML 1 ML VIAL IV PRN (19:54)
[2022-05-28] MEDS: DAPTOmycin 500 MG in SODIUM CHLORIDE 0.9% 50 ML IVPB SCH (20:54)
[2022-05-29] MEDS ORDERED: DEXTROSE 50% SYRINGE 50 ML IVP PRN ×2 (01:27)
[2022-05-29] MEDS: SODIUM CHLORIDE 0.9% 1,000 ML IV SCH ×3 (04:59→15:37)
[2022-05-29 07:34] LABS: Glucose,Whole Blood 104 mg/dL (70-110)
[2022-05-29] MEDS: INSULIN ASPART (NovoLOG) 100 UNIT/ML VIAL SQ SCH ×4 (07:37→20:50)
[2022-05-29] MEDS: HEPARIN SODIUM,PORCINE/PF 5,000 UNIT/0.5 ML SYRINGE SQ SCH ×2 (08:37→20:49)
[2022-05-29] MEDS: LORATADINE 10 MG TAB PO SCH (08:37)
[2022-05-29] MEDS: TORSEMIDE 20 MG TAB PO SCH ×2 (08:37→21:27)
[2022-05-29] MEDS: allopurinoL 300 MG TAB PO SCH (08:37)
[2022-05-29 08:57] LABS: Basophils # (A) 0.04 X 10*3/uL (0.00-0.10); Basophils % (A) 0.6 %; Eosinophils # (A) 0 X 10*3/uL (0.04-0.35); Eosinophils % (A) 0 %; HCT 26.8 % (37.2-46.3); HGB 8.4 g/dL (12.0-15.0); Immature Grans, Automated 0.3 %; Lymphocytes # (A) 2.75 X 10*3/uL (0.90-5.00); Lymphocytes % (A) 39.7 %; MCH 29.4 pg (27.0-32.0); MCHC 31.3 g/dL (32.0-37.0); MCV 93.7 fL (80.0-97.0); Mean Platelet Volume 10.6 fL (9.5-12.2); Monocytes # (A) 0.92 X 10*3/uL (0.20-1.00); Monocytes % (A) 13.3 %; NRBC Per 100 WBC 0 /100 WBCS (0.0-0.0); Neutrophils % (A) 46.1 %; Platelet Count 324 X 10*3/uL (140-440); RBC 2.86 X 10*6/uL (4.10-5.20); RDW 16.8 % (11.5-14.5); WBC 6.93 X 10*3/uL (4.50-10.00)
[2022-05-29] MEDS ORDERED: FAMOTIDINE 20 MG/2 ML VIAL IV SCH (09:00)
[2022-05-29 09:18] LABS: African American GFR (CKD) 83.4 (60.0-200.0); Albumin/Globulin Ratio 0.63 (1.60-3.17); Anion Gap 5.9 mmol/L (10.00-18.00); BUN/Creat Ratio 18.22 Ratio (12.00-20.00); Blood Urea Nitrogen 16.4 mg/dL (9.0-27.0); Calcium 7.6 mg/dL (8.7-10.3); Carbon Dioxide 21.1 mmol/L (20.0-27.5); Globulin 3.2 g/dL (1.6-3.3); Potassium 3.3 mmol/L (3.5-5.5); Total Bilirubin 0.2 mg/dL (0.30-1.20); Total Protein 5.2 g/dL (6.2-8.2)
[2022-05-29 12:09] LABS: Glucose,Whole Blood 114 mg/dL (70-110)
[2022-05-29 14:01] VITALS: BMI 56.5
[2022-05-29 17:15] LABS: Glucose,Whole Blood 134 mg/dL (70-110)
[2022-05-29 20:44] LABS: Glucose,Whole Blood 169 mg/dL (70-110)
[2022-05-29] MEDS: DAPTOmycin 500 MG in SODIUM CHLORIDE 0.9% 50 ML IVPB SCH (20:49)
[2022-05-29] MEDS: FAMOTIDINE 20 MG TAB PO SCH (20:49)
[2022-05-29] MEDS: METOPROLOL SUCCINATE (ER) 25 MG TAB.ER.24H PO SCH (20:49)
--- NOTE | 2022-05-29 21:49 | P.HPIM ---
History of Present Illness H&P Date: 05/29/22 Chief Complaint: sent from Wound Care 56-year-old female with history of diabetes, pressure ulcers, asthma, recurrent UTIs presenting from wound care for concerns of worsening bedsore. Patient was seen in wound care today, the provider was concerned for worsening wounds to the right. Patient states that she has had recurrent diarrhea, which has been making keeping the wound clean more difficult. Patient has also been on multiple antibiotics recently due to recurrent UTI. It was noted by triage that her urostomy bag had some thick purulent urine. At this time after the back has been attempted urine appears clear. No abdominal pain, nausea, vomiting, fever, chills, flank pain, chest pain, difficulty breathing. Patient has also had recurrent diarrhea due to multiple antibiotics, she states that this has made keeping her wounds clean difficult. On physical exam there is a stage III pressure ulcer to the right buttock's, and also some redness and skin breakdown noted to the buttocks near midline. CBC shows no leukocytosis or anemia. Patient is hypoglycemic, she is given food and juice, on recheck glucose is 87. Calcium is 7.9, corrected calcium is 8.9. UA shows signs of infection, moderate blood and large leukocytes, urine sent for culture. Patient was previously treated with Rocephin and daptomycin during her recent admission, doses are given here in the ER. Review of Systems REVIEW OF SYSTEMS: CONSTITUTIONAL: No fever, no malaise, no fatigue. HEENT: No recent visual problems or hearing problems. Denied any sore throat. CARDIOVASCULAR: No chest pain, orthopnea, PND, no palpitations, no syncope. PULMONARY: No shortness of breath, no cough, no hemoptysis. GASTROINTESTINAL: No diarrhea, no nausea, no vomiting, no abdominal pain. NEUROLOGICAL: No headaches, no weakness, no numbness. HEMATOLOGICAL: Denies any bleeding or petechiae. GENITOURINARY: Denies any burning micturition, frequency, or urgency. MUSCULOSKELETAL/RHEUMATOLOGICAL: Denies any joint pain, swelling, or any muscle pain. ENDOCRINE: Denies any polyuria or polydipsia. The rest of the 14-point review of systems is negative. Past Medical History Past Medical History: Asthma, Diabetes Mellitus, GERD/Reflux, Musculoskeletal Disorder, Neurologic Disorder, Pneumonia, Renal Disease, Sleep Apnea/CPAP/BIPAP Additional Past Medical History / Comment(s): 08-09-15 admitted with cellulitis of external nose. other pst medical hx includes: hx. 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, MRSA Date of last positivie culture/infection: 07/07/21 MRSA 01/07/15 ESBL MDRO Source:: MRSA BUTTOCK, ESBL LEG Past Surgical History: Back Surgery, Bowel Resection, Orthopedic Surgery Additional Past Surgical History / Comment(s): multiple surgeries for hydroc ephalus, urostomy x 2, multiple hip,leg, foot surgeries, ankles fused, [facility] shunt, pt stated back sx was to remove spina bifida growth, egd Past Anesthesia/Blood Transfusion Reactions: No Reported Reaction Past Psychological History: No Psychological Hx Reported Additional Psychological History / Comment(s): pt lives alone at [facility],gets around by w/ able to stand and pivot and drives. does have visiting nurses wed-,wednesday. Smoking Status: Never smoker Past Alcohol Use History: None Reported Past Drug Use History: None Reported - Past Family History Father Family Medical History: Hypertension Additional Family Medical History / Comment(s): gout, heart murmur, rheumatic fever as child, tia Mother Family Medical History: Cancer, Hypertension Additional Family Medical History / Comment(s): interstitial cystitis, breast cancer x2, diet controlled diabetic, hiatal hernia Medications and Allergies Home Medications Medication Instructions Recorded Confirmed Type Cetirizine HCl [Zyrtec] 5 mg PO DAILY 10/04/14 05/28/22 History Liraglutide [Victoza 2-Raul] 1.8 mg SQ DAILY 10/04/14 05/28/22 History Omeprazole [PriLOSEC] 20 mg PO DAILY 10/04/14 05/28/22 History allopurinoL [Zyloprim] 300 mg PO DAILY 10/04/14 05/28/22 History Glucosamine/Chondr Choi A Sod [Osteo 1 tab PO DAILY 08/09/15 05/28/22 History Bi-Flex Caplet] Loperamide [Imodium] 1 - 2 mg PO QID PRN 08/09/15 05/28/22 History Metoprolol Succinate [Toprol XL] 25 mg PO HS 08/09/15 05/28/22 History Ammonium Lactate Cream [Lac-Hydrin 1 applic TOPICAL BID 04/23/22 05/28/22 History 12% Cream] Cranberry Fruit Extract [Cranberry] 500 mg PO DAILY 04/23/22 05/28/22 History Fish Oil/Dha/Epa [Fish Oil 1,200 1 cap PO DAILY 04/23/22 05/28/22 History mg Fish Oil] Lactobacillus Acidophilus 1 tab PO DAILY 04/23/22 05/28/22 History [Acidophilus] Methenamine Hippurate 1 gm PO BID 04/23/22 05/28/22 History Multivit with Calcium,Iron,Min 1 tab PO DAILY 04/23/22 05/28/22 History [Women's Multivitamin] Nystatin 100,000Unit/gm Cream 1 applic TOPICAL BID 04/23/22 05/28/22 History [Mycostatin Cream] Acetaminophen Tab [Tylenol] 650 mg PO Q6HR PRN tab 04/30/22 05/28/22 Rx Magnesium Oxide [Mag-Ox] 400 mg PO BID 30 Days #60 tab 04/30/22 05/28/22 Rx Potassium Chloride [Klor-Con M20] 40 meq PO DAILY #0 04/30/22 05/28/22 Rx Torsemide [Demadex] 20 mg PO BID 30 Days #60 tab 04/30/22 05/28/22 Rx Insulin Degludec [Tresiba 10 - 20 units SQ HS 05/28/22 05/28/22 History Flextouch U-100 Pen] Allergies Allergy/AdvReac Type Severity Reaction Status Date / Time amoxicillin trihydrate Allergy Rash/Hives Verified 05/28/22 17:24 [From Augmentin] banana Allergy Unknown Verified 05/28/22 17:24 chestnut Allergy Unknown Verified 05/28/22 17:24 ciprofloxacin [From Cipro] Allergy Rash/Hives Verified 05/28/22 17:24 ciprofloxacin HCl Allergy Rash/Hives Verified 05/28/22 17:24 [From Cipro] kiwi Allergy Unknown Verified 05/28/22 17:24 Latex, Natural Rubber Allergy Anaphylaxis Verified 05/28/22 17:24 methylprednisolone Allergy Rash/Hives Verified 05/28/22 17:24 [From Solu-Medrol] nitrofurantoin Allergy Rash/Hives Verified 05/28/22 17:24 macrocrystalline [From Macrodantin] potassium clavulanate Allergy Rash/Hives Verified 05/28/22 17:24 [From Augmentin] Sulfa (Sulfonamide Allergy Rash/Hives Verified 05/28/22 17:24 Antibiotics) vancomycin Allergy Anaphylaxis Verified 05/28/22 17:24 Beef Containing Products AdvReac Diarrhea Verified 05/28/22 17:24 [Beef] midazolam HCl [From Versed] AdvReac very Verified 05/28/22 17:24 combative, disoriented sucralose AdvReac Diarrhea Verified 05/28/22 17:24 [From Splenda (sucralose)] callagen Allergy Rash/Hives Uncoded 05/28/22 17:24 Physical Exam Vitals: Vital Signs Temp Pulse Pulse Resp BP BP Pulse Ox 05/29/22 13:12 98.1 F 83 16 120/55 96 05/29/22 07:42 93/57 05/29/22 05:40 97.8 F 67 16 87/51 98 05/29/22 05:07 76 16 05/29/22 00:06 98.7 F 76 16 101/59 93 L 05/28/22 23:27 78 18 124/79 96 05/28/22 20:22 76 18 124/67 96 Intake and Output 05/29/22 05/29/22 05/29/22 06:59 14:59 22:59 Intake Total 590 Balance 590 Intake: Oral 590 Other: # Bowel Movements 1 Weight 127.006 kg General appearance: alert, in no apparent distress Head exam: Present: atraumatic, normocephalic, normal inspection Eye exam: Present: normal appearance, PERRL, EOMI. Absent: scleral icterus, conjunctival injection, periorbital swelling Neck exam: Present: normal inspection Respiratory exam: Present: normal lung sounds bilaterally. Absent: respiratory distress, wheezes, rales, rhonchi, stridor Cardiovascular Exam: Present: regular rate, normal rhythm, normal heart sounds. Absent: systolic murmur, diastolic murmur, rubs, gallop, clicks GI/Abdominal exam: Present: soft. Absent: distended, tenderness, guarding, rebound, rigid Neurological exam: Present: alert, oriented X3, CN II-XII intact Psychiatric exam: Present: normal affect, normal mood Skin exam: Present: other (stage III pressure ulcer to the right buttock, redness and skin breakdown near the gluteal crease Results CBC & Chem 7: 05/29/22 05:49 05/29/22 05:49 Labs: Abnormal Lab Results - Last 24 Hours (Table) 05/28/22 05/29/22 05/29/22 Range/Units 16:43 05:49 05:49 RBC 2.86 L (4.10-5.20) X 10*6/uL Hgb 8.4 L (12.0-15.0) g/dL Hct 26.8 L (37.2-46.3) % MCHC 31.3 L (32.0-37.0) g/dL RDW 16.8 H (11.5-14.5) % Eosinophils # 0 L (0.04-0.35) X 10*3/uL Potassium 3.3 L (3.5-5.5) mmol/L Chloride 113 H (96-109) mmol/L Anion Gap 5.90 L (10.00-18.00) mmol/L Glucose 121 H (70-110) mg/dL POC Glucose (mg/dL) 69 L (70-110) mg/dL Calcium 7.6 L (8.7-10.3) mg/dL Total Bilirubin 0.20 L (0.30-1.20) mg/dL AST 11 L (13-35) U/L Alkaline Phosphatase 136 H (41-126) U/L Total Protein 5.2 L (6.2-8.2) g/dL Albumin 2.0 L (3.8-4.9) g/dL Albumin/Globulin Ratio 0.63 L (1.60-3.17) g/dL 05/29/22 Range/Units 12:08 RBC (4.10-5.20) X 10*6/uL Hgb (12.0-15.0) g/dL Hct (37.2-46.3) % MCHC (32.0-37.0) g/dL RDW (11.5-14.5) % Eosinophils # (0.04-0.35) X 10*3/uL Potassium (3.5-5.5) mmol/L Chloride (96-109) mmol/L Anion Gap (10.00-18.00) mmol/L Glucose (70-110) mg/dL POC Glucose (mg/dL) 114 H (70-110) mg/dL Calcium (8.7-10.3) mg/dL Total Bilirubin (0.30-1.20) mg/dL AST (13-35) U/L Alkaline Phosphatase (41-126) U/L Total Protein (6.2-8.2) g/dL Albumin (3.8-4.9) g/dL Albumin/Globulin Ratio (1.60-3.17) g/dL Microbiology - Last 24 Hours (Table) 05/28/22 13:26 Urine Culture - Preliminary Urine,Voided Thrombosis Risk Factor Assmnt - Choose All That Apply Each Factor Represents 1 point: Age 41-60 years, Swollen legs (current) Thrombosis Risk Factor Assessment Total Risk Factor Score: 2 Thrombosis Risk Factor Assessment Level: Low Risk Assessment and Plan Assessment: 1. Infected pressure ulcer left buttock; stage III - Patient has been placed on IV antibiotics in form of ceftriaxone and daptomycin based on previous culture and sensitivity report 2. UTI; patient is placed on IV antibiotics in form of ceftriaxone and dapto mycin; we will continue with current antibiotic therapy and monitor CBC, CMP and pro-calcitonin; blood culture and urine culture has been obtained and pending 3. Acute onset diarrhea; symptomatic treatment; check for C. diff colitis; monitor CBC, CRP and pro-calcitonin 4. Diabetes mellitus type I; monitor Accu-Cheks every before meals and at bedtime with insulin sliding scale; we'll hold off on home diabetic therapy 5. Asthma; not in exacerbation 6. Hypertension; metoprolol 25 mg daily at bedtime; Demadex 20 mg twice a day 7. Gout/hyperuricemia; allopurinol 300 mg daily DVT prophylaxis; SCDs/subcu heparin CODE STATUS; full code
--- NOTE | 2022-05-29 23:51 | P.CONS ---
History of Present Illness - Reason for Consult Consult date: 05/29/22 UTI Requesting physician: Jenaro Mortensen - Chief Complaint Worsening wound to the right posterior hip x days - History of Present Illness Patient is a 56-year-old female with a past medical history taken for diabetes mellitus history of recurrent UTI and did have a pressure ulcer to the right hip area for the patient to follow at [facility] wound care center patient was evaluated in the wound care center yesterday and there was concern for worsening of the wound to the right hip area for the patient was sent to the ER patient also complaining of diarrhea seem to have been getting worse for the last few weeks however the patient mentions slowly decreasing in frequency no blood or mucus in the stool patient did have wound to the right hip area which has been chronic for this patient been there for many weeks patient did have some dull aching pain 3-4 out of 10 and no radiation and did have some drainage and surrounding maceration patient also have a urostomy bag with the purulent urine patient on presentation to the hospital was afebrile and no fever have been recorded subsequently patient did have a normal white count kidney function has been normal urine has been positive which is currently growing gram-negative patient is currently on daptomycin to cover for the right hip wound infection infectious disease was consulted for further management of antibiotic therapy Review of Systems Positive point has been mentioned in the HPI rest of the systems are negative Past Medical History Past Medical History: Asthma, Diabetes Mellitus, GERD/Reflux, Musculoskeletal Disorder, Neurologic Disorder, Pneumonia, Renal Disease, Sleep Apnea/CPAP/BIPAP Additional Past Medical History / Comment(s): 08-09- admitted with cellulitis of external nose. other pst medical hx includes: hx. 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 ESBL MDRO Source:: MRSA BUTTOCK, ESBL LEG Past Surgical History: Back Surgery, Bowel Resection, Orthopedic Surgery Additional Past Surgical History / Comment(s): multiple surgeries for hydroc ephalus, urostomy x 2, multiple hip,leg, foot surgeries, ankles fused, [facility] shunt, pt stated back sx was to remove spina bifida growth, egd Past Anesthesia/Blood Transfusion Reactions: No Reported Reaction Past Psychological History: No Psychological Hx Reported Additional Psychological History / Comment(s): pt lives alone at [facility],gets around by w/ able to stand and pivot and drives. does have visiting nurses wed-,wednesday. Smoking Status: Never smoker Past Alcohol Use History: None Reported Past Drug Use History: None Reported - Past Family History Father Family Medical History: Hypertension Additional Family Medical History / Comment(s): gout, heart murmur, rheumatic fever as child, tia Mother Family Medical History: Cancer, Hypertension Additional Family Medical History / Comment(s): interstitial cystitis, breast cancer x2, diet controlled diabetic, hiatal hernia Medications and Allergies Home Medications Medication Instructions Recorded Confirmed Type Cetirizine HCl [Zyrtec] 5 mg PO DAILY 10/04/14 05/28/22 History allopurinoL [Zyloprim] 300 mg PO DAILY 10/04/14 05/28/22 History Glucosamine/Chondr Choi A Sod [Osteo 1 tab PO DAILY 08/09/15 05/28/22 History Bi-Flex Caplet] Loperamide [Imodium] 1 - 2 mg PO QID PRN 08/09/15 05/28/22 History Metoprolol Succinate [Toprol XL] 25 mg PO HS 08/09/15 05/28/22 History Ammonium Lactate Cream [Lac-Hydrin 1 applic TOPICAL BID 04/23/22 05/28/22 History 12% Cream] Cranberry Fruit Extract [Cranberry] 500 mg PO DAILY 04/23/22 05/28/22 History Fish Oil/Dha/Epa [Fish Oil 1,200 1 cap PO DAILY 04/23/22 05/28/22 History mg Fish Oil] Lactobacillus Acidophilus 1 tab PO DAILY 04/23/22 05/28/22 History [Acidophilus] Methenamine Hippurate 1 gm PO BID 04/23/22 05/28/22 History Multivit with Calcium,Iron,Min 1 tab PO DAILY 04/23/22 05/28/22 History [Women's Multivitamin] Acetaminophen Tab [Tylenol] 650 mg PO Q6HR PRN tab 04/30/22 05/28/22 Rx Magnesium Oxide [Mag-Ox] 400 mg PO BID 30 Days #60 tab 04/30/22 05/28/22 Rx Potassium Chloride [Klor-Con M20] 40 meq PO DAILY #0 04/30/22 05/28/22 Rx Torsemide [Demadex] 20 mg PO BID 30 Days #60 tab 04/30/22 05/28/22 Rx Ertapenem [INVanz] 1 gm IVPB Q24H #42 each 06/11/22 Rx Cholestyramine (with Sugar) 4 gm PO BID@1000,1800 packet 06/18/22 Rx [Questran Packet] Famotidine [Pepcid] 20 mg PO BID tab 06/18/22 Rx INSULIN ASPART (NovoLOG) [NovoLOG 0 unit SQ ACHS each 06/18/22 Rx (formulary)] Pantoprazole [Protonix] 40 mg PO DAILY tab 06/18/22 Rx Allergies Allergy/AdvReac Type Severity Reaction Status Date / Time amoxicillin trihydrate Allergy Rash/Hives Verified 05/28/22 17:24 [From Augmentin] banana Allergy Unknown Verified 05/28/22 17:24 chestnut Allergy Unknown Verified 05/28/22 17:24 ciprofloxacin [From Cipro] Allergy Rash/Hives Verified 05/28/22 17:24 ciprofloxacin HCl Allergy Rash/Hives Verified 05/28/22 17:24 [From Cipro] kiwi Allergy Unknown Verified 05/28/22 17:24 Latex, Natural Rubber Allergy Anaphylaxis Verified 05/28/22 17:24 methylprednisolone Allergy Rash/Hives Verified 05/28/22 17:24 [From Solu-Medrol] nitrofurantoin Allergy Rash/Hives Verified 05/28/22 17:24 macrocrystalline [From Macrodantin] potassium clavulanate Allergy Rash/Hives Verified 05/28/22 17:24 [From Augmentin] Sulfa (Sulfonamide Allergy Rash/Hives Verified 05/28/22 17:24 Antibiotics) vancomycin Allergy Anaphylaxis Verified 05/28/22 17:24 Beef Containing Products AdvReac Diarrhea Verified 05/28/22 17:24 [Beef] sucralose AdvReac Diarrhea Verified 05/28/22 17:24 [From Splenda (sucralose)] callagen Allergy Rash/Hives Uncoded 05/28/22 17:24 Physical Exam Vitals: Vital Signs Temp Pulse Pulse Resp BP BP Pulse Ox 05/29/22 07:42 93/57 05/29/22 05:40 97.8 F 67 16 87/51 98 05/29/22 05:07 76 16 05/29/22 00:06 98.7 F 76 16 101/59 93 L 05/28/22 23:27 78 18 124/79 96 05/28/22 20:22 76 18 124/67 96 05/28/22 12:19 98.7 F 75 20 111/57 100 Intake and Output 05/28/22 05/29/22 05/29/22 22:59 06:59 14:59 Intake Total 590 Balance 590 Intake: Oral 590 Other: # Bowel Movements 1 Weight 127.006 kg GENERAL DESCRIPTION: Middle-aged female lying in bed, no distress. No tachypnea or accessory muscle of respiration use. HEENT: Shows Pallor , no scleral icterus. Oral mucous membrane is dry. No pharyngeal erythema or thrush NECK: Trachea central, no thyromegaly. LUNGS: Unlabored breathing. Clear to auscultation anteriorly. No wheeze or crackle. HEART: S1, S2, regular rate and rhythm. No loud murmur ABDOMEN: Soft, no tenderness , guarding or rigidity, no organomegaly EXTREMITIES: No edema of feet. Right posterior thigh/hip area did have a wound with slough tissue surrounding redness and some foul-smelling drainage SKIN: No rash, no masses palpable. Patient did have a stage III sacral pressure ulcer with some slough tissue surrounding redness no foul-smelling drainage NEUROLOGICAL: The patient is awake, alert, oriented x3, mood and affect normal. Results CBC & Chem 7: 06/18/22 07:01 06/18/22 07:01 Labs: Abnormal Lab Results - Last 24 Hours (Table) 05/28/22 05/28/22 05/28/22 Range/Units 13:26 13:26 13:26 RBC (4.10-5.20) X 10*6/uL Hgb (12.0-15.0) g/dL Hct (37.2-46.3) % MCHC (32.0-37.0) g/dL RDW 16.7 H (11.5-15.5) % Eosinophils # (0.04-0.35) X 10*3/uL Potassium (3.5-5.5) mmol/L Chloride 111 H (98-107) mmol/L Anion Gap (10.00-18.00) mmol/L BUN 19 H (7-17) mg/dL Glucose 63 L (74-99) mg/dL POC Glucose (mg/dL) (70-110) mg/dL Calcium 7.9 L (8.4-10.2) mg/dL Total Bilirubin (0.30-1.20) mg/dL AST (13-35) U/L Alkaline Phosphatase 173 H (38-126) U/L Total Protein (6.2-8.2) g/dL Albumin 2.8 L (3.5-5.0) g/dL Albumin/Globulin Ratio (1.60-3.17) g/dL Urine Appearance Turbid H (Clear) Urine Protein 1+ H (Negative) Urine Blood Moderate H (Negative) Ur Leukocyte Esterase Large H (Negative) Urine RBC 67 H (0-5) /hpf Urine WBC >182 H (0-5) /hpf Urine WBC Clumps Few H (None) /hpf Urine Bacteria Many H (None) /hpf 05/28/22 05/29/22 05/29/22 Range/Units 16:43 05:49 05:49 RBC 2.86 L (4.10-5.20) X 10*6/uL Hgb 8.4 L (12.0-15.0) g/dL Hct 26.8 L (37.2-46.3) % MCHC 31.3 L (32.0-37.0) g/dL RDW 16.8 H (11.5-15.5) % Eosinophils # 0 L (0.04-0.35) X 10*3/uL Potassium 3.3 L (3.5-5.5) mmol/L Chloride 113 H (98-107) mmol/L Anion Gap 5.90 L (10.00-18.00) mmol/L BUN (7-17) mg/dL Glucose 121 H (74-99) mg/dL POC Glucose (mg/dL) 69 L (70-110) mg/dL Calcium 7.6 L (8.4-10.2) mg/dL Total Bilirubin 0.20 L (0.30-1.20) mg/dL AST 11 L (13-35) U/L Alkaline Phosphatase 136 H (38-126) U/L Total Protein 5.2 L (6.2-8.2) g/dL Albumin 2.0 L (3.5-5.0) g/dL Albumin/Globulin Ratio 0.63 L (1.60-3.17) g/dL Urine Appearance (Clear) Urine Protein (Negative) Urine Blood (Negative) Ur Leukocyte Esterase (Negative) Urine RBC (0-5) /hpf Urine WBC (0-5) /hpf Urine WBC Clumps (None) /hpf Urine Bacteria (None) /hpf Microbiology - Last 24 Hours (Table) 05/28/22 13:26 Urine Culture - Preliminary Urine,Voided Assessment and Plan (1) UTI (urinary tract infection) Status: Acute Code(s): N39.0 - URINARY TRACT INFECTION, SITE NOT SPECIFIED SNOMED Code(s): 29978218 (2) Unspecified open wound, right hip, subsequent encounter Status: Acute Code(s): S71.001D - UNSPECIFIED OPEN WOUND, RIGHT HIP, SUBSEQUENT ENCOUNTER SNOMED Code(s): 89908278084398961 Plan: 1patient with a nonhealing wound to the right hip area which seems to be deep tunneling and did have surrounding inflammatory changes and maceration concerning for wound infection possibly related to gram-positive skin eduarda however gram-negative infection not entirely excluded. 2patient did have a positive UA concerning for a gram-negative enteric pathogen. 3patient with multiple antibiotic allergies that would limit the number of antibiotics safe to use. 4we will obtain consultation with vascular surgery for surgical debridement and deep culture. 5continue with the daptomycin we will add Azactam to cover for gram-negative while waiting for the culture to finalize. We will follow on clinical condition and cultures to further adjust medication if needed Thank you for this consultation will follow this patient along with you Time with Patient: Greater than 30
[2022-05-30] MEDS: AZTREONAM 2 GM in SODIUM CHLORIDE 0.9% 100 ML IVPB SCH ×4 (00:23→23:22)
[2022-05-30] MEDS: SODIUM CHLORIDE 0.9% 1,000 ML IV SCH ×4 (00:23→23:22)
[2022-05-30 07:39] LABS: Glucose,Whole Blood 121 mg/dL (70-110)
[2022-05-30] MEDS: INSULIN ASPART (NovoLOG) 100 UNIT/ML VIAL SQ SCH ×4 (07:46→21:00)
[2022-05-30] MEDS: LACTOBACILLUS ACIDOPH & BULGAR 1 EACH PACKET PO SCH (08:30)
[2022-05-30] MEDS: TORSEMIDE 20 MG TAB PO SCH ×2 (08:30→21:17)
[2022-05-30] MEDS: POTASSIUM CHLORIDE ER 20 MEQ TAB.ER PO SCH (08:30)
[2022-05-30] MEDS: HEPARIN SODIUM,PORCINE/PF 5,000 UNIT/0.5 ML SYRINGE SQ SCH ×2 (08:30→21:17)
[2022-05-30] MEDS: PANTOPRAZOLE 40 MG TABLET PO SCH (08:30)
[2022-05-30] MEDS: FAMOTIDINE 20 MG TAB PO SCH ×2 (08:30→21:17)
[2022-05-30] MEDS: allopurinoL 300 MG TAB PO SCH (08:30)
[2022-05-30] MEDS: MAGNESIUM OXIDE 400 MG TAB PO SCH ×2 (08:30→21:17)
[2022-05-30] MEDS: LORATADINE 10 MG TAB PO SCH (08:31)
[2022-05-30] MEDS: NON FORMULARY DRUG (Methenamine Hippurate [Methenamine Hippurate] 1 GM Tablet) PO SCH ×2 (08:35→21:11)
[2022-05-30] MEDS ORDERED: FUROSEMIDE 10 MG/ML 2 ML VIAL IV ONE (12:00)
[2022-05-30 12:31] LABS: Glucose,Whole Blood 148 mg/dL (70-110)
[2022-05-30 17:19] LABS: Glucose,Whole Blood 97 mg/dL (70-110)
--- NOTE | 2022-05-30 17:25 | P.PN ---
Subjective Progress Note Date: 05/30/22 56-year-old female with history of diabetes, pressure ulcers, asthma, recurrent UTIs presenting from wound care for concerns of worsening bedsore. Patient was seen in wound care today, the provider was concerned for worsening wounds to the right. Patient states that she has had recurrent diarrhea, which has been making keeping the wound clean more difficult. Patient has also been on multiple antibiotics recently due to recurrent UTI. It was noted by triage that her urostomy bag had some thick purulent urine. At this time after the back has been attempted urine appears clear. No abdominal pain, nausea, vomiting, fever, chills, flank pain, chest pain, difficulty breathing. Patient has also had recurrent diarrhea due to multiple antibiotics, she states that this has made keeping her wounds clean difficult. On physical exam there is a stage III pressure ulcer to the right buttock's, and also some redness and skin breakdown noted to the buttocks near midline. CBC shows no leukocytosis or anemia. Patient is hypoglycemic, she is given food and juice, on recheck glucose is 87. Calcium is 7.9, corrected calcium is 8.9. UA shows signs of infection, moderate blood and large leukocytes, urine sent for culture. Patient was previously treated with Rocephin and daptomycin during her recent admission, doses are given here in the ER. Objective - Vital Signs Vital signs: Vital Signs Temp 99.3 F 05/30/22 12:28 Pulse 81 05/30/22 12:28 Resp 16 05/30/22 12:28 BP 105/65 05/30/22 12:28 Pulse Ox 97 05/30/22 12:28 FiO2 Intake & Output 05/29/22 05/30/22 05/30/22 18:59 06:59 18:59 Intake Total 1680 Output Total 1600 2600 Balance -1600 -920 Weight 127.006 kg Intake: Oral 1680 Output: Urine 1600 2600 - Exam General appearance: alert, in no apparent distress Head exam: Present: atraumatic, normocephalic, normal inspection Eye exam: Present: normal appearance, PERRL, EOMI. Absent: scleral icterus, conjunctival injection, periorbital swelling Neck exam: Present: normal inspection Respiratory exam: Present: normal lung sounds bilaterally. Absent: respiratory distress, wheezes, rales, rhonchi, stridor Cardiovascular Exam: Present: regular rate, normal rhythm, normal heart sounds. Absent: systolic murmur, diastolic murmur, rubs, gallop, clicks GI/Abdominal exam: Present: soft. Absent: distended, tenderness, guarding, rebound, rigid Neurological exam: Present: alert, oriented X3, CN II-XII intact Psychiatric exam: Present: normal affect, normal mood Skin exam: Present: other (stage III pressure ulcer to the right buttock, redness and skin breakdown near the gluteal crease - Labs CBC & Chem 7: 05/29/22 05:49 05/29/22 05:49 Labs: Abnormal Lab Results - Last 24 Hours (Table) 05/29/22 05/29/22 05/30/22 Range/Units 17:13 20:43 07:37 POC Glucose (mg/dL) 134 H 169 H 121 H (70-110) mg/dL 05/30/22 Range/Units 12:29 POC Glucose (mg/dL) 148 H (70-110) mg/dL Microbiology - Last 24 Hours (Table) 05/28/22 13:26 Urine Culture - Final Urine,Voided Escherichia coli Assessment and Plan Assessment: 1. Infected pressure ulcer left buttock; stage III - Patient has been placed on IV antibiotics in form of ceftriaxone and daptomyci n based on previous culture and sensitivity report 2. UTI; patient is placed on IV antibiotics in form of ceftriaxone and daptomycin; we will continue with current antibiotic therapy and monitor CBC, CMP and pro-calcitonin; blood culture and urine culture has been obtained and pending 3. Acute onset diarrhea; symptomatic treatment; check for C. diff colitis; monitor CBC, CRP and pro-calcitonin 4. Diabetes mellitus type I; monitor Accu-Cheks every before meals and at bedtime with insulin sliding scale; we'll hold off on home diabetic therapy 5. Asthma; not in exacerbation 6. Hypertension; metoprolol 25 mg daily at bedtime; Demadex 20 mg twice a day 7. Gout/hyperuricemia; allopurinol 300 mg daily DVT prophylaxis; SCDs/subcu heparin CODE STATUS; full code
[2022-05-30 20:56] LABS: Glucose,Whole Blood 150 mg/dL (70-110)
[2022-05-30] MEDS: DAPTOmycin 500 MG in SODIUM CHLORIDE 0.9% 50 ML IVPB SCH (21:15)
[2022-05-30] MEDS: METOPROLOL SUCCINATE (ER) 25 MG TAB.ER.24H PO SCH (21:17)
--- NOTE | 2022-05-30 22:53 | CT ---
EXAMINATION TYPE: CT hip RT w con DATE OF EXAM: 05/30/2022 COMPARISON: None HISTORY: right hip/thigh area wound/abscess CT DLP: 882.9 mGycm Automated exposure control for dose reduction was used. CONTRAST: Performed with IV Contrast, patient injected with 80ML mL of Isovue 300. Images obtained from the iliac crest to the mid shaft of the femur with IV contrast. 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 The shallow acetabulum. The re is some hip joint space narrowing. The iliac bone appears intact. The right pubic bone appears int act. No evidence of femoral fracture. This subcutaneous fluid and edema in the posterior aspect of the right hip. This extends up to the is chial tubercle. The fluid and intermediate density extends posteriorly and measures 6.7 x 2.4 cm. the re is some surrounding subcutaneous edema. There is some soft tissue air in the subcutaneous tissues which extends 3 cm below the skin surface. There is apparent significant descent of the floor of the pelvis with rectal and vaginal prolapse and uterine prolapse. There is apparent dilated fluid-filled cecum that measures 8 cm. Urinary bladder also appears descended and almost empty. There is increased fluid density around the posterior aspect of the prolapsed rectum. This measures 2 .5 cm in thickness. IMPRESSION: Complex fluid containing a few air bubbles posterior to the right ischium and consistent with abscess and phlegmon. There is adjacent subcutaneous edema. There is uterine and rectal prolapse. There is m oderate posterior perirectal fluid and edema. No focal bone destruction.
[2022-05-31] MEDS: SODIUM CHLORIDE 0.9% 1,000 ML IV SCH ×3 (06:54→17:26)
[2022-05-31 07:18] LABS: Glucose,Whole Blood 83 mg/dL (70-110)
[2022-05-31] MEDS: INSULIN ASPART (NovoLOG) 100 UNIT/ML VIAL SQ SCH ×4 (08:06→20:40)
[2022-05-31] MEDS: NON FORMULARY DRUG (Methenamine Hippurate [Methenamine Hippurate] 1 GM Tablet) PO SCH ×2 (08:26→20:41)
[2022-05-31] MEDS: POTASSIUM CHLORIDE ER 20 MEQ TAB.ER PO SCH (09:22)
[2022-05-31] MEDS: FAMOTIDINE 20 MG TAB PO SCH ×2 (09:22→21:04)
[2022-05-31] MEDS: LORATADINE 10 MG TAB PO SCH (09:22)
[2022-05-31] MEDS: allopurinoL 300 MG TAB PO SCH (09:22)
[2022-05-31] MEDS: PANTOPRAZOLE 40 MG TABLET PO SCH (09:22)
[2022-05-31] MEDS: TORSEMIDE 20 MG TAB PO SCH ×2 (09:22→21:04)
[2022-05-31] MEDS: LACTOBACILLUS ACIDOPH & BULGAR 1 EACH PACKET PO SCH (09:23)
[2022-05-31] MEDS: AZTREONAM 2 GM in SODIUM CHLORIDE 0.9% 100 ML IVPB SCH ×3 (09:23→23:51)
[2022-05-31] MEDS: HEPARIN SODIUM,PORCINE/PF 5,000 UNIT/0.5 ML SYRINGE SQ SCH ×2 (09:23→21:03)
[2022-05-31] MEDS: MAGNESIUM OXIDE 400 MG TAB PO SCH ×2 (09:23→21:04)
[2022-05-31 11:08] LABS: Anisocytosis Slight; Basophils # (A) 0.1 k/uL (0-0.2); Basophils % (A) 1 %; Eosinophils % (A) 0 %; HCT 28.3 % (34.0-46.0); Hypochromasia Moderate; Lymphocytes # (A) 1.9 k/uL (1.0-4.8); Lymphocytes % (A) 29 %; MCH 30.4 pg (25.0-35.0); MCHC 31.7 g/dL (31.0-37.0); MCV 95.7 fL (80.0-100.0); Monocytes # (A) 0.6 k/uL (0-1.0); Monocytes % (A) 9 %; Neutrophils % (A) 58 %; Platelet Count 297 k/uL (150-450); RBC 2.96 m/uL (3.80-5.40); RDW 16.8 % (11.5-15.5); WBC 6.8 k/uL (3.8-10.6)
[2022-05-31 11:24] LABS: African American GFR (CKD) >90 (>60 ml/min/1.73 sqM); Anion Gap 5 mmol/L; Blood Urea Nitrogen 13 mg/dL (7-17); Calcium 7.1 mg/dL (8.4-10.2); Carbon Dioxide 24 mmol/L (22-30); Chloride 112 mmol/L (98-107); Glucose 123 mg/dL (74-99); Non-African American GFR(CKD) >90 (>60 ml/min/1.73 sqM); Potassium 2.9 mmol/L (3.5-5.1); Sodium 141 mmol/L (137-145)
[2022-05-31 11:42] LABS: Glucose,Whole Blood 120 mg/dL (70-110)
[2022-05-31] MEDS: ACETAMINOPHEN TAB 325 MG TAB PO PRN (14:23)
[2022-05-31 17:17] LABS: Glucose,Whole Blood 230 mg/dL (70-110)
--- NOTE | 2022-05-31 17:30 | P.PN ---
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 On today's evaluation that is 05/30/2022, the patient denies having any fever or any chills breathing comfortably. No chest pain shortness of breath or cough no abdominal discomfort but no worsening diarrhea Objective - Vital Signs Vital signs: Vital Signs Temp 99.3 F 05/30/22 12:28 Pulse 81 05/30/22 12:28 Resp 16 05/30/22 12:28 BP 105/65 05/30/22 12:28 Pulse Ox 97 05/30/22 12:28 FiO2 Intake & Output 05/29/22 05/30/22 05/30/22 18:59 06:59 18:59 Intake Total 1680 Output Total 1600 2600 Balance -1600 -920 Weight 127.006 kg Intake: Oral 1680 Output: Urine 1600 2600 - Exam GENERAL DESCRIPTION: Middle-aged female lying in bed in no distress RESPIRATORY SYSTEM: Unlabored breathing , decreased breath sounds at bases HEART: S1 S2 regular rate and rhythm , ABDOMEN: Soft , no tenderness EXTREMITIES: No edema feet - Labs CBC & Chem 7: 05/31/22 10:55 05/31/22 10:55 Labs: Abnormal Lab Results - Last 24 Hours (Table) 05/29/22 05/29/22 05/30/22 Range/Units 17:13 20:43 07:37 POC Glucose (mg/dL) 134 H 169 H 121 H (70-110) mg/dL 05/30/22 Range/Units 12:29 POC Glucose (mg/dL) 148 H (70-110) mg/dL Microbiology - Last 24 Hours (Table) 05/28/22 13:26 Urine Culture - Final Urine,Voided Escherichia coli Assessment and Plan (1) Unspecified open wound, right hip, subsequent encounter Current Visit: Yes Status: Acute Code(s): S71.001D - UNSPECIFIED OPEN WOUND, RIGHT HIP, SUBSEQUENT ENCOUNTER SNOMED Code(s): 20634625860501316 (2) UTI (urinary tract infection) Current Visit: Yes Status: Acute Code(s): N39.0 - URINARY TRACT INFECTION, SITE NOT SPECIFIED SNOMED Code(s): 47299733 Plan: 1patient with a nonhealing wound to the right hip area which seems to be deep tunneling and did have surrounding inflammatory changes and maceration concerning for wound infection possibly related to gram-positive skin eduarda however gram-negative infection not entirely excluded. 2patient did have a positive UA concerning for a gram-negative enteric pathogen with urine cultures currently pending. 3patient with multiple antibiotic allergies that would limit the number of antibiotics safe to use. 4patient has been evaluated by vascular surgery recommending imaging before surgical debridement, we will obtain a CT of the right hip area with contrast 5patient to continue with the daptomycin and Azactam while waiting for the cultures to finalize Time with Patient: Less than 30
--- NOTE | 2022-05-31 17:32 | P.PN ---
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 On today's evaluation that is 05/31/2022, the patient continues to be afebrile, the patient is breathing comfortably on room air, the patient denies chest pain shortness of breath or cough no abdominal discomfort and no worsening diarrhea Objective - Vital Signs Vital signs: Vital Signs Temp 98.8 F 05/31/22 11:49 Pulse 73 05/31/22 11:49 Resp 18 05/31/22 11:49 BP 100/65 05/31/22 11:49 Pulse Ox 99 05/31/22 11:49 FiO2 Intake & Output 05/30/22 05/31/22 05/31/22 18:59 06:59 18:59 Intake Total 160 830 Output Total 1800 3000 1700 Balance -1640 -2170 -1700 Intake: Oral 160 830 Output: Urine 1800 3000 1700 Other: # Bowel Movements 1 2 - Exam GENERAL DESCRIPTION: Middle-aged female lying in bed in no distress RESPIRATORY SYSTEM: Unlabored breathing , decreased breath sounds at bases HEART: S1 S2 regular rate and rhythm , ABDOMEN: Soft , no tenderness EXTREMITIES: No edema feet - Labs CBC & Chem 7: 05/31/22 10:55 05/31/22 10:55 Labs: Abnormal Lab Results - Last 24 Hours (Table) 05/30/22 05/31/22 05/31/22 Range/Units 20:54 10:55 10:55 RBC 2.96 L (3.80-5.40) m/uL Hgb 9.0 L D (11.4-16.0) gm/dL Hct 28.3 L (34.0-46.0) % RDW 16.8 H (11.5-15.5) % Potassium 2.9 L (3.5-5.1) mmol/L Chloride 112 H (98-107) mmol/L Glucose 123 H (74-99) mg/dL POC Glucose (mg/dL) 150 H (70-110) mg/dL Calcium 7.1 L (8.4-10.2) mg/dL 05/31/22 05/31/22 Range/Units 11:40 17:15 RBC (3.80-5.40) m/uL Hgb (11.4-16.0) gm/dL Hct (34.0-46.0) % RDW (11.5-15.5) % Potassium (3.5-5.1) mmol/L Chloride (98-107) mmol/L Glucose (74-99) mg/dL POC Glucose (mg/dL) 120 H 230 H (70-110) mg/dL Calcium (8.4-10.2) mg/dL Assessment and Plan (1) Unspecified open wound, right hip, subsequent encounter Current Visit: Yes Status: Acute Code(s): S71.001D - UNSPECIFIED OPEN WOUND, RIGHT HIP, SUBSEQUENT ENCOUNTER SNOMED Code(s): 72259406194402072 (2) UTI (urinary tract infection) Current Visit: Yes Status: Acute Code(s): N39.0 - URINARY TRACT INFECTION, S ITE NOT SPECIFIED SNOMED Code(s): 98318045 Plan: 1patient with a nonhealing wound to the right hip area which seems to be deep tunneling and did have surrounding inflammatory changes and maceration concerning for wound infection possibly related to gram-positive skin eduarda however gram-negative infection not entirely excluded. 2patient did have a positive UA concerning for a gram-negative enteric pathogen with urine cultures currently growing E. coli that is sensitive to Azactam patient is currently on 3patient with multiple antibiotic allergies that would limit the number of antibiotics safe to use. 4patient has been evaluated by vascular surgery recommending imaging before surgical debridement, the patient CT of the right hip area did show evidence of abscess this was discussed with the vascular surgery who will be evaluating the patient and possible drainage of the abscess and the culture 5patient to continue with the daptomycin and Azactam and monitor clinical course closely Time with Patient: Less than 30
--- NOTE | 2022-05-31 19:21 | P.PN ---
Subjective Progress Note Date: 05/31/22 Principal diagnosis: Infected pressure ulcer left buttock; stage III Urinary tract infection 56-year-old female with history of diabetes, pressure ulcers, asthma, recurrent UTIs presenting from wound care for concerns of worsening bedsore. Patient was seen in wound care today, the provider was concerned for worsening wounds to the right. Patient states that she has had recurrent diarrhea, which has been making keeping the wound clean more difficult. Patient has also been on multiple antibiotics recently due to recurrent UTI. It was noted by triage that her urostomy bag had some thick purulent urine. At this time after the back has been attempted urine appears clear. No abdominal pain, nausea, vomiting, fever, chills, flank pain, chest pain, difficulty breathing. Patient has also had recurrent diarrhea due to multiple antibiotics, she states that this has made keeping her wounds clean difficult. On physical exam there is a stage III pressure ulcer to the right buttock's, and also some redness and skin breakdown noted to the buttocks near midline. CBC shows no leukocytosis or anemia. Patient is hypoglycemic, she is given food and juice, on recheck glucose is 87. Calcium is 7.9, corrected calcium is 8.9. UA shows signs of infection, moderate blood and large leukocytes, urine sent for culture. Patient was previously treated with Rocephin and daptomycin during her recent admission, doses are given here in the ER. 05/31/2022, the patient is seen and evaluated in room at bedside; continues to be afebrile, the patient is breathing comfortably on room air, the patient denies chest pain shortness of breath or cough no abdominal discomfort and no worsening diarrhea CAT scan results were discussed with the patient patient with a nonhealing wound to the right hip area which seems to be deep tunneling and did have surrounding inflammatory changes and maceration concerning for wound infection possibly related to gram-positive skin eduarda however gram-negative infection not entirely excluded. patient did have a positive UA concerning for a gram-negative enteric pathogen with urine cultures currently growing E. coli that is sensitive to Azactam patient is currently on patient with multiple antibiotic allergies that would limit the number of antibiotics safe to use. patient has been evaluated by vascular surgery recommending imaging before surgical debridement, the patient CT of the right hip area did show evidence of abscess this was discussed with the vascular surgery who will be evaluating the patient and possible drainage of the abscess and the culture patient to continue with the daptomycin and Azactam and monitor clinical course closely Objective - Vital Signs Vital signs: Vital Signs Temp 98.5 F 05/31/22 05:00 Pulse 68 05/31/22 05:00 Resp 16 05/31/22 05:00 BP 111/65 05/31/22 05:00 Pulse Ox 99 05/31/22 05:00 FiO2 Intake & Output 05/30/22 05/31/22 05/31/22 18:59 06:59 18:59 Intake Total 160 830 Output Total 1800 3000 Balance -1640 -2170 Intake: Oral 160 830 Output: Urine 1800 3000 Other: # Bowel Movements 1 - Exam General appearance: alert, in no apparent distress Head exam: Present: atraumatic, normocephalic, normal inspection Eye exam: Present: normal appearance, PERRL, EOMI. Absent: scleral icterus, conjunctival injection, periorbital swelling Neck exam: Present: normal inspection Respiratory exam: Present: normal lung sounds bilaterally. Absent: respiratory distress, wheezes, rales, rhonchi, stridor Cardiovascular Exam: Present: regular rate, normal rhythm, normal heart sounds. Absent: systolic murmur, diastolic murmur, rubs, gallop, clicks GI/Abdominal exam: Present: soft. Absent: distended, tenderness, guarding, rebound, rigid Neurological exam: Present: alert, oriented X3, CN II-XII intact Psychiatric exam: Present: normal affect, normal mood Skin exam: Present: other (stage III pressure ulcer to the right buttock, redness and skin breakdown near the gluteal crease - Labs CBC & Chem 7: 05/31/22 10:55 05/31/22 10:55 Labs: Abnormal Lab Results - Last 24 Hours (Table) 05/30/22 05/30/22 Range/Units 12:29 20:54 POC Glucose (mg/dL) 148 H 150 H (70-110) mg/dL Microbiology - Last 24 Hours (Table) 05/28/22 13:26 Urine Culture - Final Urine,Voided Escherichia coli Assessment and Plan Assessment: 1. Infected pressure ulcer left buttock; stage III - Patient has been placed on IV antibiotics in form of ceftriaxone and daptomycin based on previous culture and sensitivity report 2. UTI; patient is placed on IV antibiotics in form of ceftriaxone and daptomycin; we will continue with current antibiotic therapy and monitor CBC, CMP and pro-calcitonin; blood culture and urine culture has been obtained and pending 3. Acute onset diarrhea; symptomatic treatment; check for C. diff colitis; monitor CBC, CRP and pro-calcitonin 4. Diabetes mellitus type I; monitor Accu-Cheks every before meals and at bedtime with insulin sliding scale; we'll hold off on home diabetic therapy 5. Asthma; not in exacerbation 6. Hypertension; metoprolol 25 mg daily at bedtime; Demadex 20 mg twice a day 7. Gout/hyperuricemia; allopurinol 300 mg daily DVT prophylaxis; SCDs/subcu heparin CODE STATUS; full code
[2022-05-31 20:24] LABS: Glucose,Whole Blood 96 mg/dL (70-110)
[2022-05-31] MEDS: METOPROLOL SUCCINATE (ER) 25 MG TAB.ER.24H PO SCH (21:00)
[2022-05-31] MEDS: DAPTOmycin 500 MG in SODIUM CHLORIDE 0.9% 50 ML IVPB SCH (21:04)
[2022-06-01] MEDS: SODIUM CHLORIDE 0.9% 1,000 ML IV SCH ×2 (05:40→16:29)
[2022-06-01 07:11] LABS: Glucose,Whole Blood 84 mg/dL (70-110)
[2022-06-01] MEDS: TORSEMIDE 20 MG TAB PO SCH ×2 (08:24→21:49)
[2022-06-01] MEDS: LACTOBACILLUS ACIDOPH & BULGAR 1 EACH PACKET PO SCH (08:24)
[2022-06-01] MEDS: MAGNESIUM OXIDE 400 MG TAB PO SCH ×2 (08:24→21:48)
[2022-06-01] MEDS: PANTOPRAZOLE 40 MG TABLET PO SCH (08:24)
[2022-06-01] MEDS: POTASSIUM CHLORIDE ER 20 MEQ TAB.ER PO SCH ×3 (08:24→17:42)
[2022-06-01] MEDS: allopurinoL 300 MG TAB PO SCH (08:25)
[2022-06-01] MEDS: INSULIN ASPART (NovoLOG) 100 UNIT/ML VIAL SQ SCH ×4 (08:25→21:48)
[2022-06-01] MEDS: HEPARIN SODIUM,PORCINE/PF 5,000 UNIT/0.5 ML SYRINGE SQ SCH ×2 (08:25→21:48)
[2022-06-01] MEDS: FAMOTIDINE 20 MG TAB PO SCH ×2 (08:25→21:48)
[2022-06-01] MEDS: LORATADINE 10 MG TAB PO SCH (08:25)
[2022-06-01] MEDS: NON FORMULARY DRUG (Methenamine Hippurate [Methenamine Hippurate] 1 GM Tablet) PO SCH ×2 (08:25→21:49)
[2022-06-01] MEDS: AZTREONAM 2 GM in SODIUM CHLORIDE 0.9% 100 ML IVPB SCH ×3 (08:36→23:49)
[2022-06-01 08:58] LABS: African American GFR (CKD) 118.9 (60.0-200.0); Anion Gap 8.2 mmol/L (10.00-18.00); Blood Urea Nitrogen 12.6 mg/dL (9.0-27.0); Calcium 7.4 mg/dL (8.7-10.3); Carbon Dioxide 24.8 mmol/L (20.0-27.5); Non-African American GFR(CKD) 102.6 (60.0-200.0); Potassium 3.2 mmol/L (3.5-5.5)
[2022-06-01 09:20] LABS: Basophils # (A) 0.05 X 10*3/uL (0.00-0.10); Basophils % (A) 0.8 %; Eosinophils # (A) 0 X 10*3/uL (0.04-0.35); Eosinophils % (A) 0 %; HGB 8.8 g/dL (12.0-15.0); Immature Grans, Automated 0.5 %; Lymphocytes # (A) 2.46 X 10*3/uL (0.90-5.00); Lymphocytes % (A) 40.9 %; MCHC 30.3 g/dL (32.0-37.0); MCV 95.7 fL (80.0-97.0); Mean Platelet Volume 10.5 fL (9.5-12.2); Monocytes # (A) 0.64 X 10*3/uL (0.20-1.00); Monocytes % (A) 10.6 %; NRBC Per 100 WBC 0 /100 WBCS (0.0-0.0); Neutrophils # (A) 2.83 X 10*3/uL (1.80-7.70); Neutrophils % (A) 47.2 %; Platelet Count 298 X 10*3/uL (140-440); RBC 3.03 X 10*6/uL (4.10-5.20); RDW 17.3 % (11.5-14.5); WBC 6.01 X 10*3/uL (4.50-10.00)
[2022-06-01 11:18] LABS: Glucose,Whole Blood 134 mg/dL (70-110)
--- NOTE | 2022-06-01 12:44 | P.CONS ---
History of Present Illness - Reason for Consult Consult date: 06/01/22 wound care - History of Present Illness This is a 56-year-old patient known to the wound care center last seen by Dr. Leon last week who sent her to the emergency room for evaluation. Patient was found to have abscess to the right issue M per CT. They've been utilizing Hydrofera Blue to the site. Patient is very upset over the ulceration. Patient states that when she came to the wound care center that she was not being seen for this ulceration she had another one she was concerned about that this happens frequently and that there was no reason for a debridement to the site. Original cause of wound was Shear/Friction. The date acquired was: 05/12/2022. The wound has been in treatment 1 weeks. The wound is currently classified as a Category/Stage III wound with etiologies of Pressure Ulcer and Incontinence Associated Dermatitis (IAD) and is located on the Right Gluteal fold. The wound measures 3.4cm length x 3.9cm width x 2.5cm depth; 10.414cm^2 area and 26.036cm^3 volume. There is Fat Layer (Subcutaneous Tissue) exposed. There is no tunneling or undermining noted. There is a medium amount of serosanguineous drainage noted. The wound margin is flat and intact. There is medium (34-66%) pink granulation within the wound bed. There is a medium (34-66%) amount of necrotic tissue within the wound bed. The periwound skin appearance exhibited: Excoriation, Erythema. The periwound skin appearance did not exhibit: Callus, Crepitus, Induration, Rash, Scarring, Dry/Scaly, Maceration, Atrophie [place], C yanosis, Ecchymosis, Hemosiderin Staining, Mottled, Pallor, Rubor. The surrounding wound skin color is noted with erythema which is circumferential. Periwound temperature was noted as No Abnormality. Original cause of wound was Shear/Friction. The date acquired was: 05/12/2022. The wound has been in treatment 1 weeks. The wound is currently classified as a Category/Stage III wound with etiology of Pressure Ulcer and is located on the Right Gluteus. The wound measures 3.5cm length x 10.4cm width x 0.3cm depth; 28.588cm^2 area and 8.577cm^3 volume. There is Fat Layer (Subcutaneous Tissue) exposed. There is no tunneling or undermining noted. There is a medium amount of serosanguineous drainage noted. The wound margin is indistinct and nonvisible. There is large (67-100%) red granulation within the wound bed. There is a small (1-33%) amount of necrotic tissue within the wound bed including Adherent Slough. The periwound skin appearance exhibited: Excoriation, Ecchymosis. The periwound skin appearance did not exhibit: Callus, Crepitus, Induration, Rash, Scarring, Dry/Scaly, Maceration, Atrophie [place], Cyanosis, Hemosiderin Staining, Mottled, Pallor, Rubor, Erythema. Periwound temperature was noted as No Abnormality. Original cause of wound was Pressure Injury. The date acquired was: 05/12/2022. The wound has been in treatment 1 weeks. The wound is currently classified as a Category/Stage II wound with etiology of Pressure Ulcer and is located on the Right Coccyx. The wound measures 1.6cm length x 2cm width x 0.4cm depth; 2.513cm^2 area and 1.005cm^3 volume. There is Fat Layer (Subcutaneous Tissue) exposed. There is no tunneling or undermining noted. There is a medium amount of serosanguineous drainage noted. The wound margin is indistinct and nonvisible. There is large (67-100%) pink granulation within the wound bed. There is a small (1-33%) amount of necrotic tissue within the wound bed including Adherent Slough. The periwound skin appearance exhibited: Excoriation, Erythema. The periwound skin appearance did not exhibit: Callus, Crepitus, Induration, Rash, Scarring, Dry/Scaly, Maceration, Atrophie [place], Cyanosis, Ecchymosis, Hemosiderin Staining, Mottled, Pallor, Rubor. The surrounding wound skin color is noted with erythema which is circumferential. Periwound temperature was noted as No Abnormality. Review Of Systems: Constitutional: No fever, no chills, no night sweats. No weight change. No weakness, fatigue or lethargy. No daytime sleepiness. Integumentary:reports wounds, no lesions. No rash or pruritus. No unusual bruising. No change in hair or nails. Physical exam: General Appearance: Alert, cooperative, no distress, appears stated age. Skin: See HPI all other Skin color, texture, tugor normal, no rashes or lesions. Neurologic: Alert oriented x3 Assessment: 1. Pressure ulcer right buttock stage III 2. Pressure ulcer of sacral region stage II 3.Pressure ulcer of left buttock stage II new line 4. Spina bifida 5. Abscess to right issue M Plan: 1. Consult Dr. Alvares off for evaluation and possible debridement to the right gluteal fold ulceration and abscess. 2. Right gluteal foam: Apply absorptive silver rope, saline moistened gauze, dry gauze and cover with border foam change Wednesday 3. Left buttock ulceration sacrum ulceration: Apply honey alginate, saline moistened gauze, border foam. Change Wednesday Thank you for the consultation any questions please contact the wound care ye ter DNP note has been reviewed and discussed with Dr. Aldridge and the impression and plan of care has been directed as dictated. Past Medical History Past Medical History: Asthma, Diabetes Mellitus, GERD/Reflux, Musculoskeletal Disorder, Neurologic Disorder, Pneumonia, Renal Disease, Sleep Apnea/CPAP/BIPAP Additional Past Medical History / Comment(s): 08-09-15 admitted with cellulitis of external nose. other pst medical hx includes: hx. 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 ESBL MDRO Source:: MRSA BUTTOCK, ESBL LEG Past Surgical History: Back Surgery, Bowel Resection, Orthopedic Surgery Additional Past Surgical History / Comment(s): multiple surgeries for hydrocephalus, urostomy x 2, multiple hip,leg, foot surgeries, ankles fused, [facility] shunt, pt stated back sx was to remove spina bifida growth, egd Past Anesthesia/Blood Transfusion Reactions: No Reported Reaction Past Psychological History: No Psychological Hx Reported Additional Psychological History / Comment(s): pt lives alone at [facility],gets around by w/ able to stand and pivot and drives. does have visiting nurses wed-,wednesday. Smoking Status: Never smoker Past Alcohol Use History: None Reported Past Drug Use History: None Reported - Past Family History Father Family Medical History: Hypertension Additional Family Medical History / Comment(s): gout, heart murmur, rheumatic fever as child, tia Mother Family Medical History: Cancer, Hypertension Additional Family Medical History / Comment(s): interstitial cystitis, breast cancer x2, diet controlled diabetic, hiatal hernia Medications and Allergies Home Medications Medication Instructions Recorded Confirmed Type Cetirizine HCl [Zyrtec] 5 mg PO DAILY 10/04/14 05/28/22 History Liraglutide [Victoza 2-Raul] 1.8 mg SQ DAILY 10/04/14 05/28/22 History Omeprazole [PriLOSEC] 20 mg PO DAILY 10/04/14 05/28/22 History allopurinoL [Zyloprim] 300 mg PO DAILY 10/04/14 05/28/22 History Glucosamine/Chondr Choi A Sod [Osteo 1 tab PO DAILY 08/09/15 05/28/22 History Bi-Flex Caplet] Loperamide [Imodium] 1 - 2 mg PO QID PRN 08/09/15 05/28/22 History Metoprolol Succinate [Toprol XL] 25 mg PO HS 08/09/15 05/28/22 History Ammonium Lactate Cream [Lac-Hydrin 1 applic TOPICAL BID 04/23/22 05/28/22 History 12% Cream] Cranberry Fruit Extract [Cranberry] 500 mg PO DAILY 04/23/22 05/28/22 History Fish Oil/Dha/Epa [Fish Oil 1,200 1 cap PO DAILY 04/23/22 05/28/22 History mg Fish Oil] Lactobacillus Acidophilus 1 tab PO DAILY 04/23/22 05/28/22 History [Acidophilus] Methenamine Hippurate 1 gm PO BID 04/23/22 05/28/22 History Multivit with Calcium,Iron,Min 1 tab PO DAILY 04/23/22 05/28/22 History [Women's Multivitamin] Nystatin 100,000Unit/gm Cream 1 applic TOPICAL BID 04/23/22 05/28/22 History [Mycostatin Cream] Acetaminophen Tab [Tylenol] 650 mg PO Q6HR PRN tab 04/30/22 05/28/22 Rx Magnesium Oxide [Mag-Ox] 400 mg PO BID 30 Days #60 tab 04/30/22 05/28/22 Rx Potassium Chloride [Klor-Con M20] 40 meq PO DAILY #0 04/30/22 05/28/22 Rx Torsemide [Demadex] 20 mg PO BID 30 Days #60 tab 04/30/22 05/28/22 Rx Insulin Degludec [Tresiba 10 - 20 units SQ HS 05/28/22 05/28/22 History Flextouch U-100 Pen] Allergies Allergy/AdvReac Type Severity Reaction Status Date / Time amoxicillin trihydrate Allergy Rash/Hives Verified 05/28/22 17:24 [From Augmentin] banana Allergy Unknown Verified 05/28/22 17:24 chestnut Allergy Unknown Verified 05/28/22 17:24 ciprofloxacin [From Cipro] Allergy Rash/Hives Verified 05/28/22 17:24 ciprofloxacin HCl Allergy Rash/Hives Verified 05/28/22 17:24 [From Cipro] kiwi Allergy Unknown Verified 05/28/22 17:24 Latex, Natural Rubber Allergy Anaphylaxis Verified 05/28/22 17:24 methylprednisolone Allergy Rash/Hives Verified 05/28/22 17:24 [From Solu-Medrol] nitrofurantoin Allergy Rash/Hives Verified 05/28/22 17:24 macrocrystalline [From Macrodantin] potassium clavulanate Allergy Rash/Hives Verified 05/28/22 17:24 [From Augmentin] Sulfa (Sulfonamide Allergy Rash/Hives Verified 05/28/22 17:24 Antibiotics) vancomycin Allergy Anaphylaxis Verified 05/28/22 17:24 Beef Containing Products AdvReac Diarrhea Verified 05/28/22 17:24 [Beef] midazolam HCl [From Versed] AdvReac very Verified 05/28/22 17:24 combative, disoriented sucralose AdvReac Diarrhea Verified 05/28/22 17:24 [From Splenda (sucralose)] callagen Allergy Rash/Hives Uncoded 05/28/22 17:24 Physical Exam Vitals: Vital Signs Temp Pulse Resp BP Pulse Ox 06/01/22 11:41 98.7 F 76 16 96/62 98 12/12/22 04:12 98.7 F 65 18 93/62 95 05/31/22 21:14 98/62 05/31/22 20:00 18 05/31/22 19:40 98.5 F 71 18 93/60 99 Intake and Output 05/31/22 06/01/22 06/01/22 22:59 06:59 14:59 Intake Total 1650 Output Total 2000 900 Balance -350 -900 Intake: Intake, IV Titration 1350 Amount Aztreonam 2 gm In Sodium 100 Chloride 0.9% 100 ml @ 33 .3 mls/hr IVPB Q8HR ALLIE Rx#:[id number] DAPTOmycin 500 mg In 50 Sodium Chloride 0.9% 50 ml @ 100 mls/hr IVPB Q24H ALLIE Rx#:[id number] Sodium Chloride 0.9% 1, 1200 000 ml @ 130 mls/hr IV . Q7H42M ALLIE Rx#:[id number] Oral 300 Output: Urine 2000 900 Other: # Bowel Movements 1 Results CBC & Chem 7: 06/01/22 05:16 06/01/22 05:16 Labs: Abnormal Lab Results - Last 24 Hours (Table) 05/31/22 06/01/22 06/01/22 Range/Units 17:15 05:16 05:16 RBC 3.03 L (4.10-5.20) X 10*6/uL Hgb 8.8 L (12.0-15.0) g/dL Hct 29.0 L (37.2-46.3) % MCHC 30.3 L (32.0-37.0) g/dL RDW 17.3 H (11.5-14.5) % Eosinophils # 0 L (0.04-0.35) X 10*3/uL Potassium 3.2 L (3.5-5.5) mmol/L Chloride 111 H (96-109) mmol/L Anion Gap 8.20 L (10.00-18.00) mmol/L BUN/Creatinine Ratio 21.00 H (12.00-20.00) Ratio POC Glucose (mg/dL) 230 H (70-110) mg/dL Calcium 7.4 L (8.7-10.3) mg/dL 06/01/22 Range/Units 11:16 RBC (4.10-5.20) X 10*6/uL Hgb (12.0-15.0) g/dL Hct (37.2-46.3) % MCHC (32.0-37.0) g/dL RDW (11.5-14.5) % Eosinophils # (0.04-0.35) X 10*3/uL Potassium (3.5-5.5) mmol/L Chloride (96-109) mmol/L Anion Gap (10.00-18.00) mmol/L BUN/Creatinine Ratio (12.00-20.00) Ratio POC Glucose (mg/dL) 134 H (70-110) mg/dL Calcium (8.7-10.3) mg/dL Assessment and Plan (1) Stage III pressure ulcer of right buttock Current Visit: Yes Status: Acute Code(s): L89.313 - PRESSURE ULCER OF RIGHT BUTTOCK, STAGE 3 SNOMED Code(s): 64908202659037 (2) Stage II pressure ulcer of left buttock Current Visit: Yes Status: Acute Code(s): L89.322 - PRESSURE ULCER OF LEFT BUTTOCK, STAGE 2 SNOMED Code(s): 68668979638662 (3) Stage II pressure ulcer of sacral region Current Visit: Yes Status: Acute Code(s): L89.152 - PRESSURE ULCER OF SACRAL REGION, STAGE 2 SNOMED Code(s): 60072504395656 (4) Spina bifida Current Visit: No Status: Acute Code(s): Q05.9 - SPINA BIFIDA, UNSPECIFIED SNOMED Code(s): 25852515
[2022-06-01] MEDS ORDERED: Potassium Replacement Protocol 1 EACH MISC MISCELLANE PRN (15:20)
[2022-06-01 17:07] LABS: Glucose,Whole Blood 136 mg/dL (70-110)
--- NOTE | 2022-06-01 18:45 | P.CNOR ---
History of Present Illness - [facility] Consult date: 06/01/22 History of present illness: the patient is a very pleasant 56-year-old female with multiple medical problems including spina bifida, being nonambulatory, and having a chronic gluteal pressure sore and abscess. She has been seen chronically for this in the wound Center. She was recently admitted to internal medicine for this. during the course of her workup she had a computed tomography scan which showed involvement of the hip. General surgery, vascular surgery, and the wound healing of all been have all been consulted. Despite this being a gluteal abscess general surgery refused to see [facility] consult and recommended a formal orthopedic surgery consultation due to hip involvement. At the time of my evaluation the patient denies any hip pain. Past Medical History Past Medical History: Asthma, Diabetes Mellitus, GERD/Reflux, Musculoskeletal Disorder, Neurologic Disorder, Pneumonia, Renal Disease, Sleep Apnea/CPAP/BIPAP Additional Past Medical History / Comment(s): 08-09-15 admitted with cellulitis of external nose. other pst medical hx includes: hx. 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 ESBL MDRO Source:: MRSA BUTTOCK, ESBL LEG Past Surgical History: Back Surgery, Bowel Resection, Orthopedic Surgery Additional Past Surgical History / Comment(s): multiple surgeries for hydrocephalus, urostomy x 2, multiple hip,leg, foot surgeries, ankles fused, [facility] shunt, pt stated back sx was to remove spina bifida growth, egd Past Anesthesia/Blood Transfusion Reactions: No Reported Reaction Past Psychological History: No Psychological Hx Reported Additional Psychological History / Comment(s): pt lives alone at [facility],gets around by w/ able to stand and pivot and drives. does have visiting nurses wed-,wednesday. Smoking Status: Never smoker Past Alcohol Use History: None Reported Past Drug Use History: None Reported - Past Family History Father Family Medical History: Hypertension Additional Family Medical History / Comment(s): gout, heart murmur, rheumatic fever as child, tia Mother Family Medical History: Cancer, Hypertension Additional Family Medical History / Comment(s): interstitial cystitis, breast cancer x2, diet controlled diabetic, hiatal hernia Medications and Allergies Home Medications Medication Instructions Recorded Confirmed Type Cetirizine HCl [Zyrtec] 5 mg PO DAILY 10/04/14 05/28/22 History Liraglutide [Victoza 2-Raul] 1.8 mg SQ DAILY 10/04/14 05/28/22 History Omeprazole [PriLOSEC] 20 mg PO DAILY 10/04/14 05/28/22 History allopurinoL [Zyloprim] 300 mg PO DAILY 10/04/14 05/28/22 History Glucosamine/Chondr Choi A Sod [Osteo 1 tab PO DAILY 08/09/15 05/28/22 History Bi-Flex Caplet] Loperamide [Imodium] 1 - 2 mg PO QID PRN 08/09/15 05/28/22 History Metoprolol Succinate [Toprol XL] 25 mg PO HS 08/09/15 05/28/22 History Ammonium Lactate Cream [Lac-Hydrin 1 applic TOPICAL BID 04/23/22 05/28/22 History 12% Cream] Cranberry Fruit Extract [Cranberry] 500 mg PO DAILY 04/23/22 05/28/22 History Fish Oil/Dha/Epa [Fish Oil 1,200 1 cap PO DAILY 04/23/22 05/28/22 History mg Fish Oil] Lactobacillus Acidophilus 1 tab PO DAILY 04/23/22 05/28/22 History [Acidophilus] Methenamine Hippurate 1 gm PO BID 04/23/22 05/28/22 History Multivit with Calcium,Iron,Min 1 tab PO DAILY 04/23/22 05/28/22 History [Women's Multivitamin] Nystatin 100,000Unit/gm Cream 1 applic TOPICAL BID 04/23/22 05/28/22 History [Mycostatin Cream] Acetaminophen Tab [Tylenol] 650 mg PO Q6HR PRN tab 04/30/22 05/28/22 Rx Magnesium Oxide [Mag-Ox] 400 mg PO BID 30 Days #60 tab 04/30/22 05/28/22 Rx Potassium Chloride [Klor-Con M20] 40 meq PO DAILY #0 04/30/22 05/28/22 Rx Torsemide [Demadex] 20 mg PO BID 30 Days #60 tab 04/30/22 05/28/22 Rx Insulin Degludec [Tresiba 10 - 20 units SQ HS 05/28/22 05/28/22 History Flextouch U-100 Pen] Allergies Allergy/AdvReac Type Severity Reaction Status Date / Time amoxicillin trihydrate Allergy Rash/Hives Verified 05/28/22 17:24 [From Augmentin] banana Allergy Unknown Verified 05/28/22 17:24 chestnut Allergy Unknown Verified 05/28/22 17:24 ciprofloxacin [From Cipro] Allergy Rash/Hives Verified 05/28/22 17:24 ciprofloxacin HCl Allergy Rash/Hives Verified 05/28/22 17:24 [From Cipro] kiwi Allergy Unknown Verified 05/28/22 17:24 Latex, Natural Rubber Allergy Anaphylaxis Verified 05/28/22 17:24 methylprednisolone Allergy Rash/Hives Verified 05/28/22 17:24 [From Solu-Medrol] nitrofurantoin Allergy Rash/Hives Verified 05/28/22 17:24 macrocrystalline [From Macrodantin] potassium clavulanate Allergy Rash/Hives Verified 05/28/22 17:24 [From Augmentin] Sulfa (Sulfonamide Allergy Rash/Hives Verified 05/28/22 17:24 Antibiotics) vancomycin Allergy Anaphylaxis Verified 05/28/22 17:24 Beef Containing Products AdvReac Diarrhea Verified 05/28/22 17:24 [Beef] midazolam HCl [From Versed] AdvReac very Verified 05/28/22 17:24 combative, disoriented sucralose AdvReac Diarrhea Verified 05/28/22 17:24 [From Splenda (sucralose)] callagen Allergy Rash/Hives Uncoded 05/28/22 17:24 Physical Examination T.he patient is resting comfortably in her bed. She is alert and able to answer questions. A focused examination of the right lower extremity was conducted. On inspection there is a wound dressing over the posterior aspect of the right buttock and gluteal region. This was partially taken down and there was a large, open and draining pressure sore. There was no pain with passive range of motion of the hip Results computed tomography scan was reviewed. - Labs Labs: Abnormal Lab Results - Last 24 Hours (Table) 06/01/22 06/01/22 06/01/22 Range/Units 05:16 05:16 11:16 RBC 3.03 L (4.10-5.20) X 10*6/uL Hgb 8.8 L (12.0-15.0) g/dL Hct 29.0 L (37.2-46.3) % MCHC 30.3 L (32.0-37.0) g/dL RDW 17.3 H (11.5-14.5) % Eosinophils # 0 L (0.04-0.35) X 10*3/uL Potassium 3.2 L (3.5-5.5) mmol/L Chloride 111 H (96-109) mmol/L Anion Gap 8.20 L (10.00-18.00) mmol/L BUN/Creatinine Ratio 21.00 H (12.00-20.00) Ratio POC Glucose (mg/dL) 134 H (70-110) mg/dL Calcium 7.4 L (8.7-10.3) mg/dL 06/01/22 Range/Units 17:06 RBC (4.10-5.20) X 10*6/uL Hgb (12.0-15.0) g/dL Hct (37.2-46.3) % MCHC (32.0-37.0) g/dL RDW (11.5-14.5) % Eosinophils # (0.04-0.35) X 10*3/uL Potassium (3.5-5.5) mmol/L Chloride (96-109) mmol/L Anion Gap (10.00-18.00) mmol/L BUN/Creatinine Ratio (12.00-20.00) Ratio POC Glucose (mg/dL) 136 H (70-110) mg/dL Calcium (8.7-10.3) mg/dL H & H 05/28/22 05/29/22 05/31/22 Range/Units 13:26 05:49 10:55 Hgb 11.5 8.4 L 9.0 L D (11.4-16.0) gm/dL Hct 36.2 26.8 L 28.3 L (34.0-46.0) % 06/01/22 Range/Units 05:16 Hgb 8.8 L (11.4-16.0) gm/dL Hct 29.0 L (34.0-46.0) % Result Diagrams: 06/01/22 05:16 06/01/22 05:16 Assessment and Plan Assessment: Right full-thickness gluteal pressure sore and abscess Spina Bifida Plan: On examination of the patient this evening she has a full-thickness pressure sore in the gluteal region and no pain with passive range of motion of the hip. On review of the computed tomography scan the hip joint does not appear to be involved. Given the location of her pressure sore and lack of involvement of the hip on the computed tomography scan I feel that this is not an orthopedic surgery issue. Gluteal pressure sores have not been managed by the orthopaedic service at this facility. I would recommend and will defer to one of the other surgical services already consulted to manage. If there is concern of hip joint involvement I would suggest interventional radiology to aspirate the hip, but based on my exam tonight do not feel this is indicated at this time. I will sign off at this time. Time with Patient: Greater than 30
[2022-06-01 20:38] LABS: Glucose,Whole Blood 168 mg/dL (70-110)
[2022-06-01] MEDS: METOPROLOL SUCCINATE (ER) 25 MG TAB.ER.24H PO SCH (21:48)
[2022-06-01] MEDS: DAPTOmycin 500 MG in SODIUM CHLORIDE 0.9% 50 ML IVPB SCH (21:49)
[2022-06-01] MEDS ORDERED: POTASSIUM CHLORIDE ER 20 MEQ TAB.ER PO SCH (22:00)
--- NOTE | 2022-06-02 06:57 | XR ---
EXAMINATION TYPE: XR chest 1V portable DATE OF EXAM: 06/02/2022 HISTORY: Shortness of breath. COMPARISON: None. TECHNIQUE: Single view of the chest is submitted. FINDINGS: Demonstrated are scattered senescent parenchymal change. There is no evidence for focal infiltrate. The heart is stable. Hilar and mediastinal structures are within normal limits. Degenerative changes are seen of the dorsal spine. IMPRESSION: 1. Chronic changes without evidence for acute pulmonary disease.
[2022-06-02 07:28] LABS: Glucose,Whole Blood 85 mg/dL (70-110)
[2022-06-02] MEDS: INSULIN ASPART (NovoLOG) 100 UNIT/ML VIAL SQ SCH ×4 (08:19→21:36)
--- NOTE | 2022-06-02 08:40 | PN ---
PROGRESS NOTE DATE OF SERVICE: 06/01/2022 SUBJECTIVE: This 56-year-old woman, who was admitted with UTI _ infected right hip, is being closely monitored. The patient is on IV antibiotics. Infectious Disease is following the patient closely. The patient had a significant open wound on the right hip, and the patient is on broad-spectrum IV antibiotics. Infectious Disease is following the patient closely. A hip CT scan was done previously, which showed complex fluid containing few air bubbles posterior to the right ischium consistent with abscess and phlegmon. Subcutaneous edema was noted. The patient has significant difficulties at home and has failed outpatient treatment. The patient needs to be inpatient because of multiple complex medical issues. Surgery and Vascular Surgery had also has been consulted. PAST MEDICAL HISTORY: Reviewed. REVIEW OF SYSTEMS: A 14-point review of systems is negative except as mentioned earlier. PHYSICAL EXAMINATION: VITAL SIGNS: Pulse is 65, blood pressure ntd, respirations 18. HEENT: Conjunctivae normal. NECK: No JVD. CARDIOVASCULAR: S1, S2. RESPIRATION: Breath sounds diminished at the bases. Scattered rhonchi. ABDOMEN: Soft. Hip wound present. NERVOUS SYSTEM: Nonfocal. LABORATORY DATA: Reviewed. CT scan reviewed. ASSESSMENT: 1. Right hip wound ulcer with failure of outpatient treatment. 2. Acute urinary tract infection with Escherichia coli, which is poly sensitive. 3. Gait dysfunction. 4. Diabetes mellitus, type 2. 5. Gastroesophageal reflux disease. 6. History of pneumonia. 7. Sleep apnea. RECOMMENDATIONS: This 56-year-old woman, admitted with multiple complex medical issues. At this time, urine culture showed E. coli. The patient has significant wound. The patient is empirically initiated on broad-spectrum IV antibiotics in the form of daptomycin, and Infectious Disease has been consulted. The patient is also on aztreonam as well. This patient needs to be inpatient, even though somehow it is noted as an observation patient because this patient definitely had failure of outpatient treatment and has been referred to the ER with history of fever by wound care physician. I would strongly recommend inpatient admission with more than 24 hours duration. Otherwise, we will continue to monitor. See orders for further details. Please note, the patient has been admitted on 05/28/2022. MMODL / IJN: [id number] / MTDD
[2022-06-02] MEDS: allopurinoL 300 MG TAB PO SCH (08:42)
[2022-06-02] MEDS: FAMOTIDINE 20 MG TAB PO SCH ×2 (08:42→21:36)
[2022-06-02] MEDS: LORATADINE 10 MG TAB PO SCH (08:42)
[2022-06-02] MEDS: LACTOBACILLUS ACIDOPH & BULGAR 1 EACH PACKET PO SCH (08:42)
[2022-06-02] MEDS: POTASSIUM CHLORIDE ER 20 MEQ TAB.ER PO SCH (08:42)
[2022-06-02] MEDS: PANTOPRAZOLE 40 MG TABLET PO SCH (08:43)
[2022-06-02] MEDS: MAGNESIUM OXIDE 400 MG TAB PO SCH ×2 (08:43→21:36)
[2022-06-02] MEDS: HEPARIN SODIUM,PORCINE/PF 5,000 UNIT/0.5 ML SYRINGE SQ SCH ×2 (08:43→21:36)
[2022-06-02] MEDS: NON FORMULARY DRUG (Methenamine Hippurate [Methenamine Hippurate] 1 GM Tablet) PO SCH ×2 (08:44→21:25)
[2022-06-02] MEDS: TORSEMIDE 20 MG TAB PO SCH ×2 (08:45→21:36)
[2022-06-02] MEDS: AZTREONAM 2 GM in SODIUM CHLORIDE 0.9% 100 ML IVPB SCH ×3 (08:45→23:21)
[2022-06-02 09:00] LABS: Basophils # (A) 0.04 X 10*3/uL (0.00-0.10); Basophils % (A) 0.6 %; Eosinophils # (A) 0 X 10*3/uL (0.04-0.35); Eosinophils % (A) 0 %; HCT 27.9 % (37.2-46.3); HGB 8.5 g/dL (12.0-15.0); Immature Grans, Automated 0.6 %; Lymphocytes # (A) 2.55 X 10*3/uL (0.90-5.00); Lymphocytes % (A) 39.4 %; MCH 29.5 pg (27.0-32.0); MCHC 30.5 g/dL (32.0-37.0); MCV 96.9 fL (80.0-97.0); Mean Platelet Volume 10.7 fL (9.5-12.2); Monocytes # (A) 0.72 X 10*3/uL (0.20-1.00); Monocytes % (A) 11.1 %; NRBC Per 100 WBC 0 /100 WBCS (0.0-0.0); Neutrophils # (A) 3.12 X 10*3/uL (1.80-7.70); Neutrophils % (A) 48.3 %; Platelet Count 339 X 10*3/uL (140-440); RBC 2.88 X 10*6/uL (4.10-5.20); RDW 17.4 % (11.5-14.5); WBC 6.47 X 10*3/uL (4.50-10.00)
[2022-06-02 09:26] LABS: ALT 9 U/L (8-44); AST 14 U/L (13-35); Albumin 2.1 g/dL (3.8-4.9); Albumin/Globulin Ratio 0.64 (1.60-3.17); Alkaline Phosphatase 124 U/L (41-126); BUN/Creat Ratio 17.43 Ratio (12.00-20.00); Blood Urea Nitrogen 12.2 mg/dL (9.0-27.0); Calcium 7.7 mg/dL (8.7-10.3); Carbon Dioxide 25.6 mmol/L (20.0-27.5); Chloride 110 mmol/L (96-109); Globulin 3.3 g/dL (1.6-3.3); Glucose 97 mg/dL (70-110); Non-African American GFR(CKD) 97.5 (60.0-200.0); Potassium 3.8 mmol/L (3.5-5.5); Sodium 142 mmol/L (135-145); Total Bilirubin <0.15 mg/dL (0.30-1.20); Total Protein 5.4 g/dL (6.2-8.2)
[2022-06-02 11:40] LABS: Glucose,Whole Blood 143 mg/dL (70-110)
[2022-06-02] MEDS: SODIUM CHLORIDE 0.9% 1,000 ML IV SCH (16:14)
[2022-06-02 17:04] LABS: Glucose,Whole Blood 154 mg/dL (70-110)
--- NOTE | 2022-06-02 19:27 | PN ---
PROGRESS NOTE DATE OF SERVICE: 06/02/2022 SUBJECTIVE: This 56-year-old woman, who was admitted with significant decubitus ulcer as well as UTI, is being closely monitored. Orthopedic Surgery, Dr. Goodman has seen the patient and recommend General Surgery consultation because there is no hip involvement per se. Please refer to Dr. Goodman's notes for further information. No chest pain. No palpitations. No fever. OBJECTIVE: VITAL SIGNS: Pulse 77, blood pressure 110/70, respirations 18. CHEST: Clear to auscultation. CARDIOVASCULAR: S1, S2. ABDOMEN: Soft. Gluteal ulcer present. LABORATORY DATA: Labs are reviewed. ASSESSMENT: 1. Right gluteal ulcer decubitus with failure of outpatient treatment with possible abscess. 2. Acute urinary tract infection with Escherichia coli, which is poly sensitive. 3. Gait dysfunction. 4. Diabetes type 2. 5. Gastroesophageal reflux disease. 6. Spina bifida. 7. History of pneumonia. 8. Sleep apnea. RECOMMENDATIONS: I recommend to continue current medications and symptomatic treatment. I would recommend to follow with General Surgery for possible debridement. Otherwise, continue with antibiotics. Closely follow with Infectious Disease. Guarded prognosis. Further recommendations to follow. Eventually, [facility] rehab. MMPREETL / IJN: [id number] /
[2022-06-02 21:03] LABS: Glucose,Whole Blood 165 mg/dL (70-110)
[2022-06-02] MEDS: METOPROLOL SUCCINATE (ER) 25 MG TAB.ER.24H PO SCH (21:36)
[2022-06-02] MEDS: DAPTOmycin 500 MG in SODIUM CHLORIDE 0.9% 50 ML IVPB SCH (21:36)
[2022-06-02] MEDS: ACETAMINOPHEN TAB 325 MG TAB PO PRN (23:27)
[2022-06-03 07:31] LABS: Glucose,Whole Blood 79 mg/dL (70-110)
[2022-06-03] MEDS: INSULIN ASPART (NovoLOG) 100 UNIT/ML VIAL SQ SCH ×4 (08:10→20:48)
[2022-06-03] MEDS: HEPARIN SODIUM,PORCINE/PF 5,000 UNIT/0.5 ML SYRINGE SQ SCH ×2 (08:29→20:48)
[2022-06-03] MEDS: allopurinoL 300 MG TAB PO SCH (08:29)
[2022-06-03] MEDS: MAGNESIUM OXIDE 400 MG TAB PO SCH ×2 (08:29→20:48)
[2022-06-03] MEDS: LORATADINE 10 MG TAB PO SCH (08:30)
[2022-06-03] MEDS: PANTOPRAZOLE 40 MG TABLET PO SCH (08:30)
[2022-06-03] MEDS: LACTOBACILLUS ACIDOPH & BULGAR 1 EACH PACKET PO SCH (08:31)
[2022-06-03] MEDS: FAMOTIDINE 20 MG TAB PO SCH ×2 (08:31→20:48)
[2022-06-03] MEDS: POTASSIUM CHLORIDE ER 20 MEQ TAB.ER PO SCH (08:34)
[2022-06-03] MEDS: AZTREONAM 2 GM in SODIUM CHLORIDE 0.9% 100 ML IVPB SCH ×3 (08:35→23:32)
[2022-06-03] MEDS: TORSEMIDE 20 MG TAB PO SCH ×2 (08:41→20:48)
[2022-06-03] MEDS: NON FORMULARY DRUG (Methenamine Hippurate [Methenamine Hippurate] 1 GM Tablet) PO SCH ×2 (11:18→20:57)
[2022-06-03 12:11] LABS: Glucose,Whole Blood 161 mg/dL (70-110)
[2022-06-03] MEDS: LOPERAMIDE 2 MG CAP PO PRN ×2 (13:58→20:54)
[2022-06-03] MEDS: SODIUM CHLORIDE 0.9% 1,000 ML IV SCH (16:37)
--- NOTE | 2022-06-03 16:41 | P.GSCN ---
History of Present Illness Consult date: 06/03/22 History of present illness: CHIEF COMPLAINT: Right hip ulcer HISTORY OF PRESENT ILLNESS: This is a 56-year-old female with a known history of spina bifida and diabetes mellitus. She came into the emergency room with complaints of a right hip ulcer. Patient had been being followed at the wound care center for her sacral decubitus ulcer and was found to have evidence of a right hip ulcer. Patient referred to the ER. She had a computed tomography scan completed of the hip that showed complex fluid containing a few air bubbles posterior to the right ischium and consistent with abscess and phlegmon. There is adjacent subcutaneous edema. Patient has been evaluated by both orthopedic and vascular surgery with no intervention recommendations. Therefore, general surgery has been consulted for debridement. Patient is followed by wound care service and infectious disease. She is on antibiotics. Patient reports having low-grade temps at home. PAST MEDICAL HISTORY: See below PAST SURGICAL HISTORY: See below MEDICATIONS: See below ALLERGIES: See below SOCIAL HISTORY: No illicit drug use. REVIEW OF SYSTEMS: CONSTITUTIONAL: Denies fever or chills. HEENT: Denies blurred vision, vision changes, or eye pain. Denies hemoptysis CARDIOVASCULAR: Denies chest pain or pressure. RESPIRATORY: No shortness of breath. GASTROINTESTINAL: See HPI for pertinent findings HEMATOLOGIC: Denies bleeding disorders. GENITOURINARY: Denies any blood in urine or increased urinary frequency. SKIN: Denies pruitis. Denies rash. PHYSICAL EXAM: VITAL SIGNS: Reviewed GENERAL: Well-developed in no acute distress. HEENT: No sclera icterus. Extraocular movements grossly intact. Moist buccal mucosa. Head is atraumatic, normocephalic. No nasal drainage. ABDOMEN: Soft. Nondistended. Nontender NEUROLOGIC: Alert and oriented. Cranial nerves II through XII grossly intact. Skin: Patient has sacral decubitus ulcer with dark tissue on the left aspect of the ulcer. And right hip trochanteric ulcer with evidence of granulation tissue and tunneling. LABORATORY DATA: WBC 6.47 Hgb 8.5 platelets 339 seconds 142 potassium 3.8 creatinine 0.7 Glucose 161 IMAGING: Hip CT complex fluid containing a few air bubbles posterior to the right ischium and consistent with abscess and phlegmon there is adjacent subcutaneous edema. There is uterine and rectal prolapse. There is moderate posterior perirectal fluid and edema. No focal bone destruction ASSESSMENT: 1. Sacral decubitus ulcer 2. Right trochanteric ulcer PLAN: -Patient scheduled for debridement of the sacral ulcer and right trochanteric ulcer on 06/05/[address] fitzgerald -Continue local wound care -Continue antibiotics per infectious disease -Continue supportive care -Continue offloading Physician Public Aid Eligibility Assistant note has been reviewed by physician. Signing provider agrees with the documented findings, assessment, and plan of care. Past Medical History Past Medical History: Asthma, Diabetes Mellitus, GERD/Reflux, Musculoskeletal Disorder, Neurologic Disorder, Pneumonia, Renal Disease, Sleep Apnea/CPAP/BIPAP Additional Past Medical History / Comment(s): 08-09-15 admitted with cellulitis of external nose. other pst medical hx includes: hx. 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, MRSA Year Discovered:: 04/23/22 MRSA; 01/07/15 ESBL MDRO Source:: Urine MRSA; Leg- ESBL Past Surgical History: Back Surgery, Bowel Resection, Orthopedic Surgery Additional Past Surgical History / Comment(s): multiple surgeries for hyd rocephalus, urostomy x 2, multiple hip,leg, foot surgeries, ankles fused, [facility] shunt, pt stated back sx was to remove spina bifida growth, egd Past Anesthesia/Blood Transfusion Reactions: No Reported Reaction Past Psychological History: No Psychological Hx Reported Additional Psychological History / Comment(s): pt lives alone at [facility],gets around by w/ able to stand and pivot and drives. does have visiting nurses wed-,wednesday. Smoking Status: Never smoker Past Alcohol Use History: None Reported Past Drug Use History: None Reported - Past Family History Father Family Medical History: Hypertension Additional Family Medical History / Comment(s): gout, heart murmur, rheumatic fever as child, tia Mother Family Medical History: Cancer, Hypertension Additional Family Medical History / Comment(s): interstitial cystitis, breast cancer x2, diet controlled diabetic, hiatal hernia Medications and Allergies Home Medications Medication Instructions Recorded Confirmed Type Cetirizine HCl [Zyrtec] 5 mg PO DAILY 10/04/14 05/28/22 History Liraglutide [Victoza 2-Raul] 1.8 mg SQ DAILY 10/04/14 05/28/22 History Omeprazole [PriLOSEC] 20 mg PO DAILY 10/04/14 05/28/22 History allopurinoL [Zyloprim] 300 mg PO DAILY 10/04/14 05/28/22 History Glucosamine/Chondr Choi A Sod [Osteo 1 tab PO DAILY 08/09/15 05/28/22 History Bi-Flex Caplet] Loperamide [Imodium] 1 - 2 mg PO QID PRN 08/09/15 05/28/22 History Metoprolol Succinate [Toprol XL] 25 mg PO HS 08/09/15 05/28/22 History Ammonium Lactate Cream [Lac-Hydrin 1 applic TOPICAL BID 04/23/22 05/28/22 History 12% Cream] Cranberry Fruit Extract [Cranberry] 500 mg PO DAILY 04/23/22 05/28/22 History Fish Oil/Dha/Epa [Fish Oil 1,200 1 cap PO DAILY 04/23/22 05/28/22 History mg Fish Oil] Lactobacillus Acidophilus 1 tab PO DAILY 04/23/22 05/28/22 History [Acidophilus] Methenamine Hippurate 1 gm PO BID 04/23/22 05/28/22 History Multivit with Calcium,Iron,Min 1 tab PO DAILY 04/23/22 05/28/22 History [Women's Multivitamin] Nystatin 100,000Unit/gm Cream 1 applic TOPICAL BID 04/23/22 05/28/22 History [Mycostatin Cream] Acetaminophen Tab [Tylenol] 650 mg PO Q6HR PRN tab 04/30/22 05/28/22 Rx Magnesium Oxide [Mag-Ox] 400 mg PO BID 30 Days #60 tab 04/30/22 05/28/22 Rx Potassium Chloride [Klor-Con M20] 40 meq PO DAILY #0 04/30/22 05/28/22 Rx Torsemide [Demadex] 20 mg PO BID 30 Days #60 tab 04/30/22 05/28/22 Rx Insulin Degludec [Tresiba 10 - 20 units SQ HS 05/28/22 05/28/22 History Flextouch U-100 Pen] Allergies Allergy/AdvReac Type Severity Reaction Status Date / Time amoxicillin trihydrate Allergy Rash/Hives Verified 05/28/22 17:24 [From Augmentin] banana Allergy Unknown Verified 05/28/22 17:24 chestnut Allergy Unknown Verified 05/28/22 17:24 ciprofloxacin [From Cipro] Allergy Rash/Hives Verified 05/28/22 17:24 ciprofloxacin HCl Allergy Rash/Hives Verified 05/28/22 17:24 [From Cipro] kiwi Allergy Unknown Verified 05/28/22 17:24 Latex, Natural Rubber Allergy Anaphylaxis Verified 05/28/22 17:24 methylprednisolone Allergy Rash/Hives Verified 05/28/22 17:24 [From Solu-Medrol] nitrofurantoin Allergy Rash/Hives Verified 05/28/22 17:24 macrocrystalline [From Macrodantin] potassium clavulanate Allergy Rash/Hives Verified 05/28/22 17:24 [From Augmentin] Sulfa (Sulfonamide Allergy Rash/Hives Verified 05/28/22 17:24 Antibiotics) vancomycin Allergy Anaphylaxis Verified 05/28/22 17:24 Beef Containing Products AdvReac Diarrhea Verified 05/28/22 17:24 [Beef] midazolam HCl [From Versed] AdvReac very Verified 05/28/22 17:24 combative, disoriented sucralose AdvReac Diarrhea Verified 05/28/22 17:24 [From Splenda (sucralose)] callagen Allergy Rash/Hives Uncoded 05/28/22 17:24 Surgical - Exam Vital Signs Temp Pulse Resp BP Pulse Ox 98.7 F 75 20 111/57 100 05/28/22 12:19 05/28/22 12:19 05/28/22 12:19 05/28/22 12:19 05/28/22 12:19 Results - Labs 06/02/22 05:56 06/02/22 05:56 Abnormal Lab Results - Last 24 Hours (Table) 06/02/22 06/02/22 06/03/22 Range/Units 16:54 21:01 12:09 POC Glucose (mg/dL) 154 H 165 H 161 H (70-110) mg/dL
[2022-06-03 17:37] LABS: Glucose,Whole Blood 88 mg/dL (70-110)
[2022-06-03 20:16] LABS: Glucose,Whole Blood 175 mg/dL (70-110)
[2022-06-03] MEDS: DAPTOmycin 500 MG in SODIUM CHLORIDE 0.9% 50 ML IVPB SCH (20:47)
[2022-06-03] MEDS: METOPROLOL SUCCINATE (ER) 25 MG TAB.ER.24H PO SCH (20:48)
--- NOTE | 2022-06-04 04:36 | PN ---
PROGRESS NOTE DATE OF SERVICE: 06/03/2022 SUBJECTIVE: This is a 56-year-old woman who was admitted with UTI and decubitus ulcer is scheduled to have debridement for the gluteal ulcer by Dr. Alvares on Wednesday. I talked to Dr. Alvares. No chest pain. No palpitation. OBJECTIVE: VITAL SIGNS: Pulse is 67, blood pressure ntd respirations 18. CHEST: Clear to auscultation. CARDIOVASCULAR: S1, S2. ABDOMEN: Soft. Gluteal wound present. LABORATORY DATA: Labs are reviewed. ASSESSMENT: 1. Right gluteal ulcer, decubitus stage IV with failure of outpatient treatment with possible abscess. 2. Acute urinary tract infection with Escherichia coli, poly sensitive. 3. Gait dysfunction. 4. Diabetes mellitus, type 2. 5. Gastroesophageal reflux disease. 6. Spina bifida history. 7. History of pneumonia. 8. History of sleep apnea. RECOMMENDATIONS AND DISCUSSION: Recommend to continue current medications and symptomatic treatment. Continue with broad-spectrum IV antibiotics. Debridement per Dr. Alvares on Wednesday. MMODL / IJN: [id number] / MTDD
[2022-06-04 06:56] LABS: Glucose,Whole Blood 77 mg/dL (70-110)
[2022-06-04] MEDS: INSULIN ASPART (NovoLOG) 100 UNIT/ML VIAL SQ SCH ×4 (07:23→20:22)
[2022-06-04] MEDS: FAMOTIDINE 20 MG TAB PO SCH ×2 (08:47→20:42)
[2022-06-04] MEDS: AZTREONAM 2 GM in SODIUM CHLORIDE 0.9% 100 ML IVPB SCH (08:47)
[2022-06-04] MEDS: HEPARIN SODIUM,PORCINE/PF 5,000 UNIT/0.5 ML SYRINGE SQ SCH ×2 (08:47→20:42)
[2022-06-04] MEDS: POTASSIUM CHLORIDE ER 20 MEQ TAB.ER PO SCH (08:47)
[2022-06-04] MEDS: LORATADINE 10 MG TAB PO SCH (08:48)
[2022-06-04] MEDS: LACTOBACILLUS ACIDOPH & BULGAR 1 EACH PACKET PO SCH (08:48)
[2022-06-04] MEDS: TORSEMIDE 20 MG TAB PO SCH ×2 (08:48→20:42)
[2022-06-04] MEDS: allopurinoL 300 MG TAB PO SCH (08:48)
[2022-06-04] MEDS: MAGNESIUM OXIDE 400 MG TAB PO SCH ×2 (08:48→20:42)
[2022-06-04] MEDS: PANTOPRAZOLE 40 MG TABLET PO SCH (08:48)
[2022-06-04] MEDS: LOPERAMIDE 2 MG CAP PO PRN (08:58)
[2022-06-04] MEDS: NON FORMULARY DRUG (Methenamine Hippurate [Methenamine Hippurate] 1 GM Tablet) PO SCH ×2 (09:00→20:22)
[2022-06-04 10:17] LABS: Basophils # (A) 0.04 X 10*3/uL (0.00-0.10); Basophils % (A) 0.8 %; Eosinophils # (A) 0 X 10*3/uL (0.04-0.35); Eosinophils % (A) 0 %; HCT 29.7 % (37.2-46.3); HGB 8.8 g/dL (12.0-15.0); Lymphocytes # (A) 1.83 X 10*3/uL (0.90-5.00); Lymphocytes % (A) 35.1 %; MCH 29.3 pg (27.0-32.0); MCHC 29.6 g/dL (32.0-37.0); Mean Platelet Volume 10.7 fL (9.5-12.2); Monocytes # (A) 0.69 X 10*3/uL (0.20-1.00); Monocytes % (A) 13.2 %; NRBC Per 100 WBC 0 /100 WBCS (0.0-0.0); Neutrophils % (A) 49.9 %; Platelet Count 349 X 10*3/uL (140-440); WBC 5.21 X 10*3/uL (4.50-10.00)
[2022-06-04 10:30] LABS: African American GFR (CKD) 119.5 (60.0-200.0); Anion Gap 7.3 mmol/L (10.00-18.00); BUN/Creat Ratio 20.61 Ratio (12.00-20.00); Blood Urea Nitrogen 12.2 mg/dL (9.0-27.0); Calcium 7.8 mg/dL (8.7-10.3); Carbon Dioxide 29.6 mmol/L (20.0-27.5); Non-African American GFR(CKD) 103.1 (60.0-200.0); Potassium 3.6 mmol/L (3.5-5.5)
--- NOTE | 2022-06-04 11:06 | P.PN ---
Subjective Progress Note Date: 06/01/22 Principal diagnosis: Urinary tract infection and infected right hip wound Patient is a 56 year female past medical history significant for diabetes mellitus recurrent UTI and chronic nonhealing wound to the right hip area admitted to the hospital concerning for wound infection any UTI in this patient had multiple antibiotic ALLERGIES. On today's evaluation that is 06/01/2022, the patient remains to be afebrile, the patient is breathing comfortably on room air, the patient denies chest pain shortness of breath or cough , the patient denies abdominal discomfort or any worsening pain to the right hip wound. Objective - Vital Signs Vital signs: Vital Signs Temp 98.7 F 06/01/22 11:41 Pulse 76 06/01/22 11:41 Resp 16 06/01/22 11:41 BP 96/62 06/01/22 11:41 Pulse Ox 98 06/01/22 11:41 FiO2 Intake & Output 05/31/22 06/01/22 06/01/22 18:59 06:59 18:59 Intake Total 1650 Output Total 1700 2000 900 Balance -1700 -350 -900 Weight 127.006 kg Intake: Intake, IV Titration 1350 Amount Aztreonam 2 gm In Sodium 100 Chloride 0.9% 100 ml @ 33 .3 mls/hr IVPB Q8HR ALLIE Rx#:[id number] DAPTOmycin 500 mg In 50 Sodium Chloride 0.9% 50 ml @ 100 mls/hr IVPB Q24H ALLIE Rx#:[id number] Sodium Chloride 0.9% 1, 1200 000 ml @ 130 mls/hr IV . Q7H42M ALLIE Rx#:[id number] Oral 300 Output: Urine 1700 2000 900 Other: # Bowel Movements 2 1 - Exam GENERAL DESCRIPTION: Middle-aged female lying in bed in no distress RESPIRATORY SYSTEM: Unlabored breathing , decreased breath sounds at bases HEART: S1 S2 regular rate and rhythm , ABDOMEN: Soft , no tenderness EXTREMITIES: No edema feet - Labs CBC & Chem 7: 06/04/22 06:27 06/04/22 06:27 Labs: Abnormal Lab Results - Last 24 Hours (Table) 05/31/22 06/01/22 06/01/22 Range/Units 17:15 05:16 05:16 RBC 3.03 L (4.10-5.20) X 10*6/uL Hgb 8.8 L (12.0-15.0) g/dL Hct 29.0 L (37.2-46.3) % MCHC 30.3 L (32.0-37.0) g/dL RDW 17.3 H (11.5-14.5) % Eosinophils # 0 L (0.04-0.35) X 10*3/uL Potassium 3.2 L (3.5-5.5) mmol/L Chloride 111 H (96-109) mmol/L Anion Gap 8.20 L (10.00-18.00) mmol/L BUN/Creatinine Ratio 21.00 H (12.00-20.00) Ratio POC Glucose (mg/dL) 230 H (70-110) mg/dL Calcium 7.4 L (8.7-10.3) mg/dL 06/01/22 Range/Units 11:16 RBC (4.10-5.20) X 10*6/uL Hgb (12.0-15.0) g/dL Hct (37.2-46.3) % MCHC (32.0-37.0) g/dL RDW (11.5-14.5) % Eosinophils # (0.04-0.35) X 10*3/uL Potassium (3.5-5.5) mmol/L Chloride (96-109) mmol/L Anion Gap (10.00-18.00) mmol/L BUN/Creatinine Ratio (12.00-20.00) Ratio POC Glucose (mg/dL) 134 H (70-110) mg/dL Calcium (8.7-10.3) mg/dL Assessment and Plan (1) Unspecified open wound, right hip, subsequent encounter Current Visit: Yes Status: Acute Code(s): S71.001D - UNSPECIFIED OPEN WOUND, RIGHT HIP, SUBSEQUENT ENCOUNTER SNOMED Code(s): 38286187014815220 (2) UTI (urinary tract infection) Current Visit: Yes Status: Acute Code(s): N39.0 - URINARY TRACT INFECTION, SITE NOT SPECIFIED SNOMED Code(s): 88387186 Plan: 1patient with a nonhealing wound to the right hip area which seems to be deep tunneling and did have surrounding inflammatory changes and maceration concerning for wound infection possibly related to gram-positive skin eduarda however gram-negative infection not entirely excluded. 2patient did have a positive UA concerning for a gram-negative enteric pathogen with urine cultures currently growing E. coli that is sensitive to Azactam patient is currently on 3patient with multiple antibiotic allergies that would limit the number of antibiotics safe to use. 4patient has been evaluated by vascular surgery recommending imaging before surgical debridement, the patient CT of the right hip area did show evidence of abscess orthopedic surgery has evaluated the patient recommending general surgery consultation for drainage of this abscess 5patient to continue with the daptomycin and Azactam and monitor clinical course closely Time with Patient: Less than 30
--- NOTE | 2022-06-04 11:07 | P.PN ---
Subjective Progress Note Date: 06/02/22 Principal diagnosis: Urinary tract infection and infected right hip wound Patient is a 56 year female past medical history significant for diabetes mellitus recurrent UTI and chronic nonhealing wound to the right hip area admitted to the hospital concerning for wound infection any UTI in this patient had multiple antibiotic ALLERGIES. On today's evaluation that is 06/02/2022, the patient continues to be afebrile, the patient is breathing comfortably on room air, the patient denies chest pain shortness of breath or cough , the patient denies abdominal discomfort however has been complaining of worsening diarrhea, no new symptoms Objective - Vital Signs Vital signs: Vital Signs Temp 99.3 F 06/02/22 11:24 Pulse 77 06/02/22 11:24 Resp 18 06/02/22 11:24 BP 110/71 06/02/22 11:24 Pulse Ox 98 06/02/22 11:24 FiO2 Intake & Output 06/01/22 06/02/22 06/02/22 18:59 06:59 18:59 Intake Total 500 Output Total 2099 1700 1999 Balance -2099 Weight 127.006 kg Intake: Oral 500 Output: Urine 2099 1699 1999 Other: # Bowel Movements 1 1 - Exam GENERAL DESCRIPTION: Middle-aged female lying in bed in no distress RESPIRATORY SYSTEM: Unlabored breathing , decreased breath sounds at bases HEART: S1 S2 regular rate and rhythm , ABDOMEN: Soft , no tenderness EXTREMITIES: No edema feet - Labs CBC & Chem 7: 06/04/22 06:27 06/04/22 06:27 Labs: Abnormal Lab Results - Last 24 Hours (Table) 06/01/22 06/01/22 06/02/22 Range/Units 17:06 20:25 05:56 RBC 2.88 L (4.10-5.20) X 10*6/uL Hgb 8.5 L (12.0-15.0) g/dL Hct 27.9 L (37.2-46.3) % MCHC 30.5 L (32.0-37.0) g/dL RDW 17.4 H (11.5-14.5) % Eosinophils # 0 L (0.04-0.35) X 10*3/uL Chloride (96-109) mmol/L Anion Gap (10.00-18.00) mmol/L POC Glucose (mg/dL) 136 H 168 H (70-110) mg/dL Calcium (8.7-10.3) mg/dL Total Bilirubin (0.30-1.20) mg/dL Total Protein (6.2-8.2) g/dL Albumin (3.8-4.9) g/dL Albumin/Globulin Ratio (1.60-3.17) g/dL 06/02/22 06/02/22 Range/Units 05:56 11:27 RBC (4.10-5.20) X 10*6/uL Hgb (12.0-15.0) g/dL Hct (37.2-46.3) % MCHC (32.0-37.0) g/dL RDW (11.5-14.5) % Eosinophils # (0.04-0.35) X 10*3/uL Chloride 110 H (96-109) mmol/L Anion Gap 6.40 L (10.00-18.00) mmol/L POC Glucose (mg/dL) 143 H (70-110) mg/dL Calcium 7.7 L (8.7-10.3) mg/dL Total Bilirubin <0.15 L (0.30-1.20) mg/dL Total Protein 5.4 L (6.2-8.2) g/dL Albumin 2.1 L (3.8-4.9) g/dL Albumin/Globulin Ratio 0.64 L (1.60-3.17) g/dL Assessment and Plan (1) Unspecified open wound, right hip, subsequent encounter Current Visit: Yes Status: Acute Code(s): S71.001D - UNSPECIFIED OPEN WOUND, RIGHT HIP, SUBSEQUENT ENCOUNTER SNOMED Code(s): 61399950917115091 (2) UTI (urinary tract infection) Current Visit: Yes Status: Acute Code(s): N39.0 - URINARY TRACT INFECTION, SITE NOT SPECIFIED SNOMED Code(s): 84140566 Plan: 1patient with a nonhealing wound to the right hip area which seems to be deep tunneling and did have surrounding inflammatory changes and maceration concerning for wound infection possibly related to gram-positive skin eduarda however gram-negative infection not entirely excluded. 2patient did have a positive UA concerning for a gram-negative enteric pathogen with urine cultures currently growing E. coli that is sensitive to Azactam patient is currently on 3patient with multiple antibiotic allergies that would limit the number of antibiotics safe to use. 4patient has been evaluated by vascular surgery recommending imaging before surgical debridement, the patient CT of the right hip area did show evidence of abscess orthopedic surgery has evaluated the patient recommending general surgery consultation for drainage of this abscess, Gen. surgical site is currently pending 5patient will be continued on daptomycin and Azactam with a discharge antibiotic on the basis of final culture from the right hip site Time with Patient: Less than 30
--- NOTE | 2022-06-04 11:09 | P.PN ---
Subjective Progress Note Date: 06/03/22 Principal diagnosis: Urinary tract infection and infected right hip wound Patient is a 56 year female past medical history significant for diabetes mellitus recurrent UTI and chronic nonhealing wound to the right hip area admitted to the hospital concerning for wound infection any UTI in this patient had multiple antibiotic ALLERGIES. On today's evaluation that is 06/03/2022, the patient denies any fever or chills, the patient is breathing comfortably on room air, the patient denies chest pain shortness of breath or cough , the patient denies abdominal pain has been complaining of more diarrhea today with Imodium not helping no nausea no vomiting Objective - Vital Signs Vital signs: Vital Signs Temp 98.8 F 06/03/22 13:00 Pulse 69 06/03/22 13:00 Resp 16 06/03/22 13:00 BP 94/61 06/03/22 13:00 Pulse Ox 97 06/03/22 13:00 FiO2 Intake & Output 06/02/22 06/03/22 06/03/22 18:59 06:59 18:59 Output Total 2500 1625 1600 Balance -2500 -1625 -1600 Output: Urine 2500 1625 1600 Other: # Bowel Movements 1 1 1 - Exam GENERAL DESCRIPTION: Middle-aged female lying in bed in no distress RESPIRATORY SYSTEM: Unlabored breathing , decreased breath sounds at bases HEART: S1 S2 regular rate and rhythm , ABDOMEN: Soft , no tenderness EXTREMITIES: No edema feet - Labs CBC & Chem 7: 06/04/22 06:27 06/04/22 06:27 Labs: Abnormal Lab Results - Last 24 Hours (Table) 06/02/22 06/02/22 06/03/22 Range/Units 16:54 21:01 12:09 POC Glucose (mg/dL) 154 H 165 H 161 H (70-110) mg/dL Assessment and Plan (1) Unspecified open wound, right hip, subsequent encounter Current Visit: Yes Status: Acute Code(s): S71.001D - UNSPECIFIED OPEN WOUND, RIGHT HIP, SUBSEQUENT ENCOUNTER SNOMED Code(s): 21076899415257633 (2) UTI (urinary tract infection) Current Visit: Yes Status: Acute Code(s): N39.0 - URINARY TRACT INFECTION, SITE NOT SPECIFIED SNOMED Code(s): 58861830 Plan: 1patient with a nonhealing wound to the right hip area which seems to be deep tunneling and did have surrounding inflammatory changes and maceration concerning for wound infection possibly related to gram-positive skin eduarda however gram-negative infection not entirely excluded. 2patient did have a positive UA concerning for a gram-negative enteric pathogen with urine cultures currently growing E. coli that is sensitive to Azactam patient is currently on 3patient with multiple antibiotic allergies that would limit the number of antibiotics safe to use. 4patient has been evaluated by vascular surgery recommending imaging before surgical debridement, the patient CT of the right hip area did show evidence of abscess orthopedic surgery has evaluated the patient recommending general surgery consultation for drainage of this abscess, Gen. surgical has evaluated the patient and possible drainage of the abscess on Wednesday 5patient to continue current treatment of daptomycin and Azactam with a discharge antibiotic on the basis of final culture from the right hip site as well as discuss with the family preservation caseworker family preservation caseworker Time with Patient: Less than 30
[2022-06-04 12:13] LABS: Glucose,Whole Blood 122 mg/dL (70-110)
[2022-06-04] MEDS: CHOLESTYRAMINE (WITH SUGAR) 4 GM PACKET PO SCH ×2 (13:06→17:29)
--- NOTE | 2022-06-04 14:14 | PN ---
PROGRESS NOTE DATE OF SERVICE: 06/04/2022 SUBJECTIVE: This 56-year-old woman, admitted with sacral decubitus and UTI, scheduled to have a debridement tomorrow by surgery. No chest pain. No palpitations. No fever. OBJECTIVE: VITAL SIGNS: Pulse 65, blood pressure 97/60, respirations 14. CHEST: Clear to auscultation. CARDIOVASCULAR: S1, S2. ABDOMEN: Soft. Sacral decubitus present. LABORATORY DATA: Reviewed. ASSESSMENT: 1. Right gluteal ulcer, decubitus ulcer stage IV, with failure of outpatient treatment. 2. Acute urinary tract infection with Escherichia coli, poly sensitive. 3. Gait dysfunction. 4. Diabetes mellitus, type 2. 5. Gastroesophageal reflux disease. 6. Spina bifida history. 7. History of pneumonia. 8. History of sleep apnea. RECOMMENDATIONS: I recommend to continue current medications and symptomatic treatment. Continue with antibiotics. Otherwise, surgery. Guarded prognosis. Further recommendations to follow. MMODL / IJN: [id number] /
--- NOTE | 2022-06-04 16:12 | P.PN ---
Subjective Progress Note Date: 06/04/22 CHIEF COMPLAINT: Sacral decubitus ulcer and right hip ulcer HISTORY OF PRESENT ILLNESS: Patient sitting in bed comfortably. He does have a known history of spina bifida. She does not have much sensation in the buttocks or hip area. Patient denies any nausea vomiting. Tolerating diet. Afebrile. WBC is 5.21 Hgb 8.8 platelets 349 sodium 143 potassium 3.6 creatinine 0.6 Patient seen and examined with Dr. fitzgerald PHYSICAL EXAM: VITAL SIGNS: Reviewed. GENERAL: Well-developed in no acute distress. HEENT: No sclera icterus. Extraocular movements grossly intact. Moist buccal mucosa. Head is atraumatic, normocephalic. ABDOMEN: Soft. Nondistended. Nontender. NEUROLOGIC: Alert and oriented. Cranial nerves II through XII grossly intact. ASSESSMENT: 1. Sacral decubitus ulcer 2. Right trochanteric ulcer 3. History of spina bifida PLAN: -Patient scheduled for debridement of the sacral ulcer and right trochanteric ulcer on 06/05/[address] 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 Signing provider agrees with the documented findings, assessment, and plan of care. Objective - Vital Signs Vital signs: Vital Signs Temp 98.7 F 06/04/22 12:37 Pulse 77 06/04/22 12:37 Resp 16 06/04/22 12:37 BP 100/66 06/04/22 12:37 Pulse Ox 97 06/04/22 12:37 FiO2 Intake & Output 06/03/22 06/04/22 06/04/22 18:59 06:59 18:59 Intake Total 240 Output Total 2600 1300 Balance -2600 -1060 Intake: Oral 240 Output: Urine 2600 1300 Other: Voiding Method Self-Catheterization Self-Catheterization Ileal Conduit (Right) Ileal Conduit (Right) # Bowel Movements 1 1 - Labs CBC & Chem 7: 06/04/22 06:27 06/04/22 06:27 Labs: Abnormal Lab Results - Last 24 Hours (Table) 06/03/22 06/04/22 06/04/22 Range/Units 20:14 06:27 06:27 RBC 3.00 L (4.10-5.20) X 10*6/uL Hgb 8.8 L (12.0-15.0) g/dL Hct 29.7 L (37.2-46.3) % MCV 99.0 H (80.0-97.0) fL MCHC 29.6 L (32.0-37.0) g/dL RDW 18.0 H (11.5-14.5) % Immature Gran # 0.05 H (0.00-0.04) X 10*3/uL Eosinophils # 0 L (0.04-0.35) X 10*3/uL Carbon Dioxide 29.6 H (20.0-27.5) mmol/L Anion Gap 7.30 L (10.00-18.00) mmol/L BUN/Creatinine Ratio 20.61 H (12.00-20.00) Ratio POC Glucose (mg/dL) 175 H (70-110) mg/dL Calcium 7.8 L (8.7-10.3) mg/dL 06/04/22 Range/Units 12:11 RBC (4.10-5.20) X 10*6/uL Hgb (12.0-15.0) g/dL Hct (37.2-46.3) % MCV (80.0-97.0) fL MCHC (32.0-37.0) g/dL RDW (11.5-14.5) % Immature Gran # (0.00-0.04) X 10*3/uL Eosinophils # (0.04-0.35) X 10*3/uL Carbon Dioxide (20.0-27.5) mmol/L Anion Gap (10.00-18.00) mmol/L BUN/Creatinine Ratio (12.00-20.00) Ratio POC Glucose (mg/dL) 122 H (70-110) mg/dL Calcium (8.7-10.3) mg/dL
--- NOTE | 2022-06-04 16:47 | P.PN ---
Subjective Progress Note Date: 06/04/22 Principal diagnosis: Urinary tract infection and infected right hip wound Patient is a 56 year female past medical history significant for diabetes mellitus recurrent UTI and chronic nonhealing wound to the right hip area admitted to the hospital concerning for wound infection any UTI in this patient had multiple antibiotic ALLERGIES. On today's evaluation that is 06/04/2022, the patient remains to be afebrile, the patient is breathing comfortably on room air, the patient denies chest pain shortness of breath or cough , the patient denies abdominal pain has been c omplaining of diarrhea did have about 3 episodes yesterday patient denies having any worsening pain to the right thigh/hip wound area Objective - Vital Signs Vital signs: Vital Signs Temp 99.0 F 06/04/22 04:21 Pulse 65 06/04/22 04:21 Resp 14 06/04/22 04:21 BP 97/60 06/04/22 04:21 Pulse Ox 95 06/04/22 04:21 FiO2 Intake & Output 06/03/22 06/04/22 06/04/22 18:59 06:59 18:59 Intake Total 240 Output Total 2600 1300 Balance -2600 -1060 Intake: Oral 240 Output: Urine 2600 1300 Other: Voiding Method Self-Catheterization Self-Catheterization Ileal Conduit (Right) Ileal Conduit (Right) # Bowel Movements 1 1 - Exam GENERAL DESCRIPTION: Middle-aged female lying in bed in no distress RESPIRATORY SYSTEM: Unlabored breathing , decreased breath sounds at bases HEART: S1 S2 regular rate and rhythm , ABDOMEN: Soft , no tenderness EXTREMITIES: No edema feet - Labs CBC & Chem 7: 06/04/22 06:27 06/04/22 06:27 Labs: Abnormal Lab Results - Last 24 Hours (Table) 06/03/22 06/03/22 06/04/22 Range/Units 12:09 20:14 06:27 RBC 3.00 L (4.10-5.20) X 10*6/uL Hgb 8.8 L (12.0-15.0) g/dL Hct 29.7 L (37.2-46.3) % MCV 99.0 H (80.0-97.0) fL MCHC 29.6 L (32.0-37.0) g/dL RDW 18.0 H (11.5-14.5) % Immature Gran # 0.05 H (0.00-0.04) X 10*3/uL Eosinophils # 0 L (0.04-0.35) X 10*3/uL Carbon Dioxide (20.0-27.5) mmol/L Anion Gap (10.00-18.00) mmol/L BUN/Creatinine Ratio (12.00-20.00) Ratio POC Glucose (mg/dL) 161 H 175 H (70-110) mg/dL Calcium (8.7-10.3) mg/dL 06/04/22 Range/Units 06:27 RBC (4.10-5.20) X 10*6/uL Hgb (12.0-15.0) g/dL Hct (37.2-46.3) % MCV (80.0-97.0) fL MCHC (32.0-37.0) g/dL RDW (11.5-14.5) % Immature Gran # (0.00-0.04) X 10*3/uL Eosinophils # (0.04-0.35) X 10*3/uL Carbon Dioxide 29.6 H (20.0-27.5) mmol/L Anion Gap 7.30 L (10.00-18.00) mmol/L BUN/Creatinine Ratio 20.61 H (12.00-20.00) Ratio POC Glucose (mg/dL) (70-110) mg/dL Calcium 7.8 L (8.7-10.3) mg/dL Assessment and Plan (1) Unspecified open wound, right hip, subsequent encounter Current Visit: Yes Status: Acute Code(s): S71.001D - UNSPECIFIED OPEN WOUND, RIGHT HIP, SUBSEQUENT ENCOUNTER SNOMED Code(s): 53171195729154311 (2) UTI (urinary tract infection) Current Visit: Yes Status: Acute Code(s): N39.0 - URINARY TRACT INFECTION, SITE NOT SPECIFIED SNOMED Code(s): 21691088 Plan: 1patient with a nonhealing wound to the right hip area which seems to be deep tunneling and did have surrounding inflammatory changes and maceration concerning for wound infection possibly related to gram-positive skin eduarda however gram-negative infection not entirely excluded. 2patient did have a positive UA concerning for a gram-negative enteric pathogen with urine cultures currently growing E. coli that is sensitive pathogen antibiotic usage over to Rocephin 3patient with multiple antibiotic allergies that would limit the number of antibiotics safe to use. 4patient has been evaluated by general surgery and drainage of the abscess on Wednesday, and collection of deep culture this was discussed with the surgeon 5patient to continue current treatment of daptomycin and Rocephin and monitor clinical course closely Time with Patient: Less than 30
[2022-06-04 17:24] LABS: Glucose,Whole Blood 128 mg/dL (70-110)
[2022-06-04] MEDS: SODIUM CHLORIDE 0.9% 1,000 ML IV SCH (17:29)
[2022-06-04 20:16] LABS: Glucose,Whole Blood 113 mg/dL (70-110)
[2022-06-04] MEDS: METOPROLOL SUCCINATE (ER) 25 MG TAB.ER.24H PO SCH (20:42)
[2022-06-04] MEDS: DAPTOmycin 500 MG in SODIUM CHLORIDE 0.9% 50 ML IVPB SCH (20:43)
[2022-06-05 06:39] LABS: African American GFR (CKD) 89 (>60 ml/min/1.73 sqM); Anion Gap 1 mmol/L; Blood Urea Nitrogen 13 mg/dL (7-17); Calcium 7.4 mg/dL (8.4-10.2); Carbon Dioxide 30 mmol/L (22-30); Chloride 107 mmol/L (98-107); Glucose 109 mg/dL (74-99); Non-African American GFR(CKD) 77 (>60 ml/min/1.73 sqM); Potassium 3.9 mmol/L (3.5-5.1); Sodium 138 mmol/L (137-145)
[2022-06-05 06:42] LABS: Anisocytosis Slight; HCT 29.6 % (34.0-46.0); HGB 9.2 gm/dL (11.4-16.0); Hypochromasia Marked; MCH 30.2 pg (25.0-35.0); MCV 97.4 fL (80.0-100.0); Macrocytosis Slight; Mean Platelet Volume 8.4; Platelet Count 342 k/uL (150-450); RBC 3.04 m/uL (3.80-5.40); WBC 6.8 k/uL (3.8-10.6)
[2022-06-05 07:14] LABS: Glucose,Whole Blood 104 mg/dL (70-110)
[2022-06-05] MEDS: HEPARIN SODIUM,PORCINE/PF 5,000 UNIT/0.5 ML SYRINGE SQ SCH ×3 (08:52→20:42)
[2022-06-05] MEDS: LORATADINE 10 MG TAB PO SCH (08:52)
[2022-06-05] MEDS: INSULIN ASPART (NovoLOG) 100 UNIT/ML VIAL SQ SCH ×4 (08:52→22:06)
[2022-06-05] MEDS: LACTOBACILLUS ACIDOPH & BULGAR 1 EACH PACKET PO SCH (08:52)
[2022-06-05] MEDS: MAGNESIUM OXIDE 400 MG TAB PO SCH ×2 (08:53→20:45)
[2022-06-05] MEDS: CHOLESTYRAMINE (WITH SUGAR) 4 GM PACKET PO SCH ×2 (08:53→18:12)
[2022-06-05] MEDS: FAMOTIDINE 20 MG TAB PO SCH ×2 (08:57→20:43)
[2022-06-05] MEDS: NON FORMULARY DRUG (Methenamine Hippurate [Methenamine Hippurate] 1 GM Tablet) PO SCH ×2 (08:57→20:19)
[2022-06-05] MEDS: allopurinoL 300 MG TAB PO SCH (09:07)
[2022-06-05] MEDS ORDERED: IV FLUID CONTINUATION 1,000 ML IV ONE (10:19)
[2022-06-05] MEDS ORDERED: FLUID CONTINUATION IV ONE (10:20)
[2022-06-05] MEDS ORDERED: ONDANSETRON 4 MG/2 ML VIAL ONE (10:23)
[2022-06-05] MEDS ORDERED: ONDANSETRON 4 MG/2 ML VIAL IVP ONE (10:29)
[2022-06-05] MEDS ORDERED: fentaNYL (PF) 50 MCG/ML 2 ML AMP ONE (11:07)
[2022-06-05] MEDS ORDERED: PHENYLEPHRINE-0.9% NACL SYG 1,000 MCG/10 ML SYRINGE ONE (11:07)
[2022-06-05] MEDS ORDERED: PROPOFOL 10 MG/ML 20 ML VIAL IV ONE (11:07)
[2022-06-05] MEDS: TORSEMIDE 20 MG TAB PO SCH ×2 (11:55→20:43)
--- NOTE | 2022-06-05 11:55 | P.OP ---
Date of Procedure: 06/05/22 Preoperative Diagnosis: Sacral decubitus ulcer Right Trochanteric ulcer Postoperative Diagnosis: Same Procedure(s) Performed: Debridement of sacral decubitus ulcer Debridement of right trochanteric ulcer Anesthesia: LAURA Surgeon: Lewis Alvares Pathology: other (Debridement of ulcer) Condition: stable Disposition: PACU Description of Procedure: Patient's placed on the operative table in the prone position and received general anesthesia. Her sacral decubitus and right trochanteric ulcer were prepped and draped usual fashion. The sacral decubitus ulcer was debrided using a 15 blade and sharp dissection. The specimens of pathology reveals measured 10 x 10 x 2 cm. Electrocautery was used to control bleeding. The wound was hemostasis. Next the trochanteric ulcer was sharply. He is a 15 blade. The ulcer measured approximately 5 x 5 x 4 cm. A portion of the specimen was sent for wound cu lture. He was essentially left cautery. The wound was packed with dry dressing. Patient top she will was sent to recovery room in stable condition.
[2022-06-05 12:29] LABS: Glucose,Whole Blood 84 mg/dL (70-110)
[2022-06-05] MEDS: POTASSIUM CHLORIDE ER 20 MEQ TAB.ER PO SCH (12:36)
[2022-06-05] MEDS: PANTOPRAZOLE 40 MG TABLET PO SCH (12:36)
--- NOTE | 2022-06-05 14:32 | CDI ---
Documentation Clarification Form Date: 06/05/2022 02:11:36 PM From: Kylee Burnham RN CCDS Admit Date: 06/01/2022 12:48:00 PM Patient Name: Marielos Cardenas Visit Number: [id number] Discharge Date: ATTENTION: The Clinical Documentation Specialists (CDI) and [facility] Coding Staff appreciate your assistance in clarifying documentation. Please respond to the clarification below the line at the bottom and electronically sign. The CDI & [facility] Coding staff will review the response and follow-up if needed. Please note: Queries are made part of the Legal Health Record. If you have any questions, please contact the author of this message via ITS. Dr. Lewis Alvares A Trochanteric ulcer debridement is documented 06/05, Procedure note. Additional clarification regarding the procedure is requested. History/Risk Factors: 56-year-old female presents to the ED from wound care with worsening right hip ulcer. Medical History: Spina bifida; urostomy; DM, Hip ulcer and Sacral ulcer. 05/29, H&P Clinical Indicators: 05/30, CT right hip: Complex fluid containing a few air bubbles posterior to the right ischium and consistent with abscess and phlegmon. There is adjacent subcutaneous edema. Trochanteric ulcer debridement: trochanteric ulcer was sharply. He is a 15 blade. The ulcer measured approximately 5 x 5 x 4 cm. A portion of the specimen was sent for wound culture. He was essentially left cautery. The wound was packed with dry dressing. Treatment: 06/05 Debridement, see above; 06/04 Ceftriaxone Ivpb Q 24Hr 05/28 current Daptomycin Ivpb Q24H; Culture pending. Please clarify the type of technique and depth of procedure: [ xx ] Excisional debridement (the removal of necrotic, devitalized tissue or slough by means of cutting away of tissue) [ ] Non-excisional debridement (the removal of necrotic, devitalized tissue or slough by means of flushing, brushing, or washing. (Irrigation) [ ] Other; please specify [ ] Unable to determine [ x ] Depth of the debridement* (e.g., skin, subcutaneous tissue, fascia, muscle, bone, etc.) skin, subcutaneous, muscle [ ] Other; please specify [ ] Unable to determine Five elements required for accurate and compliant documentation of a debridement: Technique used (e.g., excisional, excised, cutting, brushing, jet lavage etc.) Instrument(s) used (e.g., scalpel, curette, etc.) Nature of the tissue removed (e.g., necrotic, devitalized tissues, non-viable tissue, etc.) Appearance and size of the wound (e.g., down to fresh bleeding tissue, 7cm x 10cm, etc.) Depth of the debridement* (e.g., skin, subcutaneous tissue, fascia, muscle, bone, etc.) (Template Last Revised: August 2020) FAUZIA
--- NOTE | 2022-06-05 14:42 | CDI ---
Documentation Clarification Form Date: 06/05/2022 02:11:36 PM From: Kylee Burnham RN CCDS Admit Date: 06/01/2022 12:48:00 PM Patient Name: Marielos Cardenas Visit Number: [id number] Discharge Date: ATTENTION: The Clinical Documentation Specialists (CDI) and [facility] Coding Staff appreciate your assistance in clarifying documentation. Please respond to the clarification below the line at the bottom and electronically sign. The CDI & [facility] Coding staff will review the response and follow-up if needed. Please note: Queries are made part of the Legal Health Record. If you have any questions, please contact the author of this message via ITS. Dr. Lewis Alvares A Sacral decubitus ulcer debridement is documented 06/05, Procedure note. Additional clarification regarding the procedure is requested. History/Risk Factors: 56-year-old female presents to the ED from wound care with worsening right hip ulcer. Medical History: Spina bifida; urostomy; DM, Hip ulcer and Sacral ulcer. 05/29, H&P Clinical Indicators: 05/30, CT right hip: Complex fluid containing a few air bubbles posterior to the right ischium and consistent with abscess and phlegmon. There is adjacent subcutaneous edema. 06/05, Sacral debridement The sacral decubitus ulcer was debrided using a 15 blade and sharp dissection. The specimen of pathology reveals measured 10 x 10 x 2 cm. Electrocautery was used to control bleeding. The wound was hemostasis. Treatment: 06/05 Debridement, see above; 06/04 Ceftriaxone Ivpb Q 24Hr 05/28 current Daptomycin Ivpb Q24H; Culture pending. Please clarify the type of technique and depth of procedure: [xx ] Excisional debridement (the removal of necrotic, devitalized tissue or slough by means of cutting away of tissue) [ ] Non-excisional debridement (the removal of necrotic, devitalized tissue or slough by means of flushing, brushing, or washing. (Irrigation) [ ] Other; please specify [ ] Unable to determine [ xx ] Depth of the debridement* (e.g., skin, subcutaneous tissue, fascia, muscle, bone, etc.) __skin, subcutaneous, muscle [ ] Other; please specify [ ] Unable to determine Five elements required for accurate and compliant documentation of a debridement: Technique used (e.g., excisional, excised, cutting, brushing, jet lavage etc.) Instrument(s) used (e.g., scalpel, curette, etc.) Nature of the tissue removed (e.g., necrotic, devitalized tissues, non-viable tissue, etc.) Appearance and size of the wound (e.g., down to fresh bleeding tissue, 7cm x 10cm, etc.) Depth of the debridement* (e.g., skin, subcutaneous tissue, fascia, muscle, bone, etc.) (Template Last Revised: August 2020) FAUZIA
[2022-06-05] MEDS: SODIUM CHLORIDE 0.9% 1,000 ML IV SCH (16:26)
[2022-06-05 17:30] LABS: Glucose,Whole Blood 126 mg/dL (70-110)
--- NOTE | 2022-06-05 20:02 | P.PN ---
Subjective Progress Note Date: 06/05/22 Principal diagnosis: Urinary tract infection and infected right hip wound Patient is a 56 year female past medical history significant for diabetes mellitus recurrent UTI and chronic nonhealing wound to the right hip area admitted to the hospital concerning for wound infection any UTI in this patient had multiple antibiotic ALLERGIES. Patient is status post surgical debridement of her wound completed on 06/05/2022 On today's evaluation that is 06/05/2022, the patient continues to be afebrile, the patient is breathing comfortably on room air, the patient denies chest pain shortness of breath or cough , the patient denies abdominal pain and the patient diarrhea has slowed down Objective - Vital Signs Vital signs: Vital Signs Temp 98.8 F 06/05/22 09:36 Pulse 76 06/05/22 10:09 Resp 16 06/05/22 10:09 BP 93/65 06/05/22 10:09 Pulse Ox 96 06/05/22 10:09 FiO2 Intake & Output 06/04/22 06/05/22 06/05/22 18:59 06:59 18:59 Intake Total 240 25 Output Total 9968 346 2596 Balance -9353 -693 -5295 Weight 127.006 kg Intake: IV 25 Oral 240 Output: Urine 2840 555 8652 Other: Voiding Method Self-Catheterization Self-Catheterization Self-Catheterization Ileal Conduit (Right) Ileal Conduit (Right) Ileal Conduit (Right) # Bowel Movements 2 - Exam GENERAL DESCRIPTION: Middle-aged female lying in bed in no distress RESPIRATORY SYSTEM: Unlabored breathing , decreased breath sounds at bases HEART: S1 S2 regular rate and rhythm , ABDOMEN: Soft , no tenderness EXTREMITIES: No edema feet - Labs CBC & Chem 7: 06/05/22 05:24 06/05/22 05:24 Labs: Abnormal Lab Results - Last 24 Hours (Table) 06/04/22 06/04/22 06/04/22 Range/Units 12:11 17:22 20:13 RBC (3.80-5.40) m/uL Hgb (11.4-16.0) gm/dL Hct (34.0-46.0) % RDW (11.5-15.5) % Glucose (74-99) mg/dL POC Glucose (mg/dL) 122 H 128 H 113 H (70-110) mg/dL Calcium (8.4-10.2) mg/dL 06/05/22 06/05/22 Range/Units 05:24 05:24 RBC 3.04 L (3.80-5.40) m/uL Hgb 9.2 L (11.4-16.0) gm/dL Hct 29.6 L (34.0-46.0) % RDW 18.0 H (11.5-15.5) % Glucose 109 H (74-99) mg/dL POC Glucose (mg/dL) (70-110) mg/dL Calcium 7.4 L (8.4-10.2) mg/dL Assessment and Plan (1) Unspecified open wound, right hip, subsequent encounter Current Visit: Yes Status: Acute Code(s): S71.001D - UNSPECIFIED OPEN WOUND, RIGHT HIP, SUBSEQUENT ENCOUNTER SNOMED Code(s): 02992577803419852 (2) UTI (urinary tract infection) Current Visit: Yes Status: Acute Code(s): N39.0 - URINARY TRACT INFECTION, SITE NOT SPECIFIED SNOMED Code(s): 60722184 Plan: 1patient with a nonhealing wound to the right hip area which seems to be deep tunneling and did have surrounding inflammatory changes and maceration darcie rning for wound infection possibly related to gram-positive skin eduarda however gram-negative infection not entirely excluded. 2patient did have a positive UA concerning for a gram-negative enteric pathogen with urine cultures currently growing E. coli that is sensitive pathogen antibiotic , patient to continue with Rocephin 3patient with multiple antibiotic allergies that would limit the number of antibiotics safe to use. 4patient has been evaluated by general surgery and drainage of the abscess and collection of deep culture completed 06/05/2022 cultures will be followed 5patient will continue with the current antibiotics of daptomycin and Rocephin while waiting for the cultures to finalize Time with Patient: Less than 30
[2022-06-05] MEDS: DAPTOmycin 500 MG in SODIUM CHLORIDE 0.9% 50 ML IVPB SCH (20:42)
[2022-06-05] MEDS: METOPROLOL SUCCINATE (ER) 25 MG TAB.ER.24H PO SCH (20:43)
[2022-06-05 21:05] LABS: Glucose,Whole Blood 121 mg/dL (70-110)
--- NOTE | 2022-06-06 04:10 | PN ---
PROGRESS NOTE DATE OF SERVICE: 06/05/2022 SUBJECTIVE: This 56-year-old woman, who was admitted with right gluteal ulcer, also have decubitus. The patient underwent extensive debridement by Dr. Alvares today. OBJECTIVE: VITAL SIGNS: Pulse is 82, blood pressure , respirations 16. CHEST: Clear to auscultation. CARDIOVASCULAR: S1, S2. ABDOMEN: Soft. NERVOUS SYSTEM: Nonfocal. BACK: Status post debridement. ASSESSMENT: 1. Status post debridement of the sacral decubitus and right trochanteric ulcer, stage IV. 2. Acute urinary tract infection with Escherichia coli, poly sensitive, present on admission. 3. Gait dysfunction. 4. Diabetes mellitus, type 2. 5. Gastroesophageal reflux disease. 6. Spina bifida. 7. Multiple medical issues. RECOMMENDATIONS: I recommend to continue current medications and symptomatic treatment. Continue with antibiotics. Closely follow with Surgery, Infectious Disease, antibiotics. Await final cultures. Further recommendations to follow. MMODL / IJN: [id number] /
[2022-06-06] MEDS: INSULIN ASPART (NovoLOG) 100 UNIT/ML VIAL SQ SCH ×4 (07:46→21:37)
[2022-06-06 07:47] LABS: Glucose,Whole Blood 96 mg/dL (70-110)
[2022-06-06] MEDS: LORATADINE 10 MG TAB PO SCH (09:30)
[2022-06-06] MEDS: TORSEMIDE 20 MG TAB PO SCH ×2 (09:30→21:38)
[2022-06-06] MEDS: POTASSIUM CHLORIDE ER 20 MEQ TAB.ER PO SCH (09:30)
[2022-06-06] MEDS: PANTOPRAZOLE 40 MG TABLET PO SCH (09:30)
[2022-06-06] MEDS: allopurinoL 300 MG TAB PO SCH (09:30)
[2022-06-06] MEDS: FAMOTIDINE 20 MG TAB PO SCH ×2 (09:31→21:36)
[2022-06-06] MEDS: HEPARIN SODIUM,PORCINE/PF 5,000 UNIT/0.5 ML SYRINGE SQ SCH ×2 (09:31→21:37)
[2022-06-06] MEDS: LACTOBACILLUS ACIDOPH & BULGAR 1 EACH PACKET PO SCH (09:31)
[2022-06-06] MEDS: NON FORMULARY DRUG (Methenamine Hippurate [Methenamine Hippurate] 1 GM Tablet) PO SCH ×2 (09:32→21:45)
[2022-06-06] MEDS: MAGNESIUM OXIDE 400 MG TAB PO SCH ×2 (09:32→21:40)
[2022-06-06] MEDS: CHOLESTYRAMINE (WITH SUGAR) 4 GM PACKET PO SCH ×2 (09:32→18:04)
--- NOTE | 2022-06-06 11:10 | P.PN ---
Subjective Progress Note Date: 06/06/22 Principal diagnosis: Decubitus ulcers 56-year-old female says her pain is slightly more after the debridement yesterday. She is still having loose stools. No abdominal pain. Objective - Vital Signs Vital signs: Vital Signs Temp 98.9 F 06/06/22 05:00 Pulse 97 06/06/22 05:00 Resp 18 06/06/22 05:00 BP 104/64 06/06/22 05:00 Pulse Ox 94 L 06/06/22 05:00 FiO2 Intake & Output 06/05/22 06/06/22 06/06/22 18:59 06:59 18:59 Intake Total 965 50 Output Total 1410 800 900 Balance -445 -750 -900 Weight 127.006 kg Intake: IV 725 Intake, IV Titration 240 50 Amount Sodium Chloride 0.9% 1, 240 000 ml @ 20 mls/hr IV . Q24H [facility]IE Rx#:[id number] cefTRIAXone 1 gm In 50 Sodium Chloride 0.9% 50 ml @ 100 mls/hr IVPB Q24HR [facility]IE Rx#:[id number] Output: Urine 1400 800 900 Estimated Blood Loss 10 Other: Voiding Method Self-Catheterization Self-Catheterization Ileal Conduit (Right) Ileal Conduit (Right) # Bowel Movements 1 1 - Exam Right trochanteric and sacral decubitus ulcers with some slough, mild tenderness, mild erythema - Labs CBC & Chem 7: 06/05/22 05:24 06/05/22 05:24 Labs: Abnormal Lab Results - Last 24 Hours (Table) 06/05/22 06/05/22 Range/Units 17:28 21:04 POC Glucose (mg/dL) 126 H 121 H (70-110) mg/dL Microbiology - Last 24 Hours (Table) 06/05/22 11:43 Gram Stain - Preliminary Other - Other Tissue Culture - Preliminary Gram Neg Bacilli 06/05/22 11:43 Anaerobic Culture - Preliminary Other - Other Assessment and Plan (1) Stage III pressure ulcer of right buttock Narrative/Plan: Patient doing fairly well after debridement yesterday. Continue local wound care per infectious disease. Agree with plans for fecal management system for now. Current Visit: Yes Status: Acute Code(s): L89.313 - PRESSURE ULCER OF RIGHT BUTTOCK, STAGE 3 SNOMED Code(s): 54089279661714
--- NOTE | 2022-06-06 11:38 | P.PN ---
Subjective Progress Note Date: 06/06/22 Principal diagnosis: Urinary tract infection and infected right hip wound Patient is a 56 year female past medical history significant for diabetes mellitus recurrent UTI and chronic nonhealing wound to the right hip area admitted to the hospital concerning for wound infection any UTI in this patient had multiple antibiotic ALLERGIES. Patient is status post surgical debridement of her wound completed on 06/05/2022 On today's evaluation that is 06/06/2022, the patient remains to be afebrile, the patient is breathing comfortably on room air, the patient denies chest pain shortness of breath or cough , the patient denies abdominal pain or any worsening pain to the right gluteal or sacral wound area still complaining of diarrhea Objective - Vital Signs Vital signs: Vital Signs Temp 98.9 F 06/06/22 05:00 Pulse 97 06/06/22 05:00 Resp 18 06/06/22 05:00 BP 104/64 06/06/22 05:00 Pulse Ox 94 L 06/06/22 05:00 FiO2 Intake & Output 06/05/22 06/06/22 06/06/22 18:59 06:59 18:59 Intake Total 965 50 Output Total 1410 800 900 Balance -445 -750 -900 Weight 127.006 kg Intake: IV 725 Intake, IV Titration 240 50 Amount Sodium Chloride 0.9% 1, 240 000 ml @ 20 mls/hr IV . Q24H [facility] Rx#:[id number] cefTRIAXone 1 gm In 50 Sodium Chloride 0.9% 50 ml @ 100 mls/hr IVPB Q24HR [facility]IE Rx#:[id number] Output: Urine 1400 800 900 Estimated Blood Loss 10 Other: Voiding Method Self-Catheterization Self-Catheterization Ileal Conduit (Right) Ileal Conduit (Right) # Bowel Movements 1 1 - Exam GENERAL DESCRIPTION: Middle-aged female lying in bed in no distress RESPIRATORY SYSTEM: Unlabored breathing , decreased breath sounds at bases HEART: S1 S2 regular rate and rhythm , ABDOMEN: Soft , no tenderness EXTREMITIES: Right hip/gluteal wound base with some slough tissue but bone is not palpable, patient did have a large sacral wound with a bone palpable slough tissue the base - Labs CBC & Chem 7: 06/05/22 05:24 06/05/22 05:24 Labs: Abnormal Lab Results - Last 24 Hours (Table) 06/05/22 06/05/22 Range/Units 17:28 21:04 POC Glucose (mg/dL) 126 H 121 H (70-110) mg/dL Microbiology - Last 24 Hours (Table) 06/05/22 11:43 Gram Stain - Preliminary Other - Other Tissue Culture - Preliminary 06/05/22 11:43 Anaerobic Culture - Preliminary Other - Other Assessment and Plan (1) Unspecified open wound, right hip, subsequent encounter Current Visit: Yes Status: Acute Code(s): S71.001D - UNSPECIFIED OPEN WOUND, RIGHT HIP, SUBSEQUENT ENCOUNTER SNOMED Code(s): 97870823804023961 (2) UTI (urinary tract infection) Current Visit: Yes Status: Acute Code(s): N39.0 - URINARY TRACT INFECTION, SITE NOT SPECIFIED SNOMED Code(s): 93281068 Plan: 1patient with a nonhealing wound to the right hip area which seems to be deep tunneling and did have surrounding inflammatory changes and maceration concerning for wound infection possibly related to gram-positive skin eduarda however gram-negative infection not entirely excluded. 2patient did have a positive UA concerning for a gram-negative enteric pathogen with urine cultures currently growing E. coli that is sensitive pathogen antibiotic , patient to continue with Rocephin 3patient with multiple antibiotic allergies that would limit the number of antibiotics safe to use. 4patient did have a stage III right gluteal pressure ulcer local care switched over to med[facility] followed by moist dressing changes daily cultures will be followed 5patient did have a stage IV sacral pressure ulcer with the bone palpable status post debridement cultures are pending local wound care with the medahoney followed by moist dressing changes daily 6persistent diarrhea , emesis has been advised to place a fecal management system to prevent contamination of her wound with stool Time with Patient: Less than 30
[2022-06-06 12:08] LABS: Glucose,Whole Blood 111 mg/dL (70-110)
--- NOTE | 2022-06-06 13:01 | P.PN ---
Subjective This is a pleasant 56 years old female who presents with right hip wound pressure ulcer stage IV status post debridement yesterday 06/05 by surgery team Also with evidence of E. coli UTI Patient is followed closely by ID team and currently covered with broad-spectrum antibiotics ceftriaxone and IV daptomycin Patient lying in bed comfortable, denies any pain in her right foot wound, she has history of right lower quadrant urostomy and status post history of vasectomy However she still complaining from diarrhea, she stated that she has chronic diarrhea but now is worse since admission probably related to her infection and she is having at about 2-3 times per day, soft but today she has more little watery diarrhea therefore a sample was sent for C. diff. Patient however denies abdominal pain, no vomiting and she ate well Wound culture and sensitivity is pending, showing gram-negative bacilli Objective - Vital Signs Vital signs: Vital Signs Temp 99.4 F 06/06/22 11:19 Pulse 95 06/06/22 11:19 Resp 16 06/06/22 11:19 BP 107/72 06/06/22 11:19 Pulse Ox 93 L 06/06/22 11:19 FiO2 Intake & Output 06/05/22 06/06/22 06/06/22 18:59 06:59 18:59 Intake Total 965 50 Output Total 1410 800 900 Balance -445 -750 -900 Weight 127.006 kg Intake: IV 725 Intake, IV Titration 240 50 Amount Sodium Chloride 0.9% 1, 240 000 ml @ 20 mls/hr IV . Q24H [facility] Rx#:[id number] cefTRIAXone 1 gm In 50 Sodium Chloride 0.9% 50 ml @ 100 mls/hr IVPB Q24HR [facility] Rx#:[id number] Output: Urine 1400 800 900 Estimated Blood Loss 10 Other: Voiding Method Self-Catheterization Self-Catheterization Ileal Conduit (Right) Ileal Conduit (Right) # Bowel Movements 1 1 - Exam GENERAL: The patient is alert and oriented x3, not in any acute distress. Well developed, well nourished. HEENT: Pupils are round and equally reacting to light. EOMI. No scleral icterus. No conjunctival pallor. Normocephalic, atraumatic. No pharyngeal erythema. No thyromegaly. CARDIOVASCULAR: S1 and S2 present. No murmurs, rubs, or gallops. PULMONARY: Chest is clear to auscultation, no wheezing or crackles. -ABDOMEN: Soft, nontender, nondistended, normoactive bowel sounds. No palpable organomegaly. Right lower quadrant urostomy MUSCULOSKELETAL: No joint swelling or deformity. -EXTREMITIES: No cyanosis, clubbing, or pedal edema. Right hip wound with a dressing and a Place, rest of exam is deferred to surgery and ID team NEUROLOGICAL: Gross neurological examination did not reveal any focal deficits. SKIN: No rashes. no petechiae. - Labs CBC & Chem 7: 06/05/22 05:24 06/05/22 05:24 Labs: Abnormal Lab Results - Last 24 Hours (Table) 06/05/22 06/05/22 06/06/22 Range/Units 17:28 21:04 12:02 POC Glucose (mg/dL) 126 H 121 H 111 H (70-110) mg/dL Microbiology - Last 24 Hours (Table) 06/05/22 11:43 Gram Stain - Preliminary Other - Other Tissue Culture - Preliminary Gram Neg Bacilli 06/05/22 11:43 Anaerobic Culture - Preliminary Other - Other Assessment and Plan Assessment: Right hip wound pressure ulcer, stage IV status post debridement 06/05 with surrounding and soft tissue infection and cellulitis E coli acute urinary tract infection Chronic anemia with hemoglobin stable History of asthma Diabetes mellitus History of sleep apnea Plan: Continue with IV antibiotic as per ID team, he was ceftriaxone and IV daptomycin Monitor hemoglobin Infectious disease and surgery team consult Labs and medication were reviewed.. Continue same treatment. Continue with symptomatic treatment. Resume home medication. Monitor labs and vitals. DVT and GI prophylaxis. Further recommendations as per clinical course of the patient DVT prophylaxis: Subcutaneous heparin GI Prophylaxis: Pepcid PT/OT: Pending Prognosis is guarded
[2022-06-06] MEDS: SODIUM CHLORIDE 0.9% 1,000 ML IV SCH (15:59)
[2022-06-06 17:15] LABS: Glucose,Whole Blood 129 mg/dL (70-110)
[2022-06-06] MEDS: ACETAMINOPHEN TAB 325 MG TAB PO PRN (18:14)
[2022-06-06 21:16] LABS: Glucose,Whole Blood 155 mg/dL (70-110)
[2022-06-06] MEDS: METOPROLOL SUCCINATE (ER) 25 MG TAB.ER.24H PO SCH (21:31)
[2022-06-06] MEDS: DAPTOmycin 500 MG in SODIUM CHLORIDE 0.9% 50 ML IVPB SCH (21:36)
[2022-06-07 07:47] LABS: Glucose,Whole Blood 100 mg/dL (70-110)
[2022-06-07 09:34] LABS: HCT 32.9 % (37.2-46.3); HGB 10.2 g/dL (12.0-15.0); MCH 29.6 pg (27.0-32.0); MCV 95.4 fL (80.0-97.0); Mean Platelet Volume 10.3 fL (9.5-12.2); NRBC Per 100 WBC 0 /100 WBCS (0.0-0.0); Platelet Count 448 X 10*3/uL (140-440); RBC 3.45 X 10*6/uL (4.10-5.20); RDW 18.8 % (11.5-14.5); WBC 11.71 X 10*3/uL (4.50-10.00)
[2022-06-07] MEDS: INSULIN ASPART (NovoLOG) 100 UNIT/ML VIAL SQ SCH ×4 (09:48→21:05)
[2022-06-07 09:54] LABS: African American GFR (CKD) 114.8 (60.0-200.0); Anion Gap 8.9 mmol/L (10.00-18.00); BUN/Creat Ratio 19.46 Ratio (12.00-20.00); Calcium 8.1 mg/dL (8.7-10.3); Carbon Dioxide 28.6 mmol/L (20.0-27.5); Non-African American GFR(CKD) 99.1 (60.0-200.0); Potassium 4.2 mmol/L (3.5-5.5)
[2022-06-07] MEDS: LACTOBACILLUS ACIDOPH & BULGAR 1 EACH PACKET PO SCH (10:05)
[2022-06-07] MEDS: CHOLESTYRAMINE (WITH SUGAR) 4 GM PACKET PO SCH (10:05)
[2022-06-07] MEDS: LORATADINE 10 MG TAB PO SCH (10:06)
[2022-06-07] MEDS: HEPARIN SODIUM,PORCINE/PF 5,000 UNIT/0.5 ML SYRINGE SQ SCH ×2 (10:06→20:54)
[2022-06-07] MEDS: POTASSIUM CHLORIDE ER 20 MEQ TAB.ER PO SCH (10:07)
[2022-06-07] MEDS: allopurinoL 300 MG TAB PO SCH (10:07)
[2022-06-07] MEDS: FAMOTIDINE 20 MG TAB PO SCH ×2 (10:07→20:55)
[2022-06-07] MEDS: PANTOPRAZOLE 40 MG TABLET PO SCH (10:08)
[2022-06-07] MEDS: NON FORMULARY DRUG (Methenamine Hippurate [Methenamine Hippurate] 1 GM Tablet) PO SCH ×2 (10:09→20:55)
[2022-06-07] MEDS: ACETAMINOPHEN TAB 325 MG TAB PO PRN (10:16)
[2022-06-07] MEDS: MAGNESIUM OXIDE 400 MG TAB PO SCH ×2 (10:16→20:55)
[2022-06-07] MEDS: TORSEMIDE 20 MG TAB PO SCH ×2 (10:19→20:55)
--- NOTE | 2022-06-07 10:50 | P.PN ---
Subjective Progress Note Date: 06/07/22 Principal diagnosis: Decubitus ulcers Patient has no new complaints. Fecal management system was placed. Apparently the stools are somewhat firm for that device. She has not had any contamination of her wounds however. T-max 99.7. Pain is controlled. Objective - Vital Signs Vital signs: Vital Signs Temp 99.7 F H 06/07/22 04:27 Pulse 88 06/07/22 04:27 Resp 18 06/07/22 04:27 BP 100/62 06/07/22 04:27 Pulse Ox 94 L 06/07/22 04:27 FiO2 Intake & Output 06/06/22 06/07/22 06/07/22 18:59 06:59 18:59 Intake Total 360 330 Output Total 2400 1300 Balance -2039 Intake: Intake, IV Titration 50 Amount DAPTOmycin 500 mg In 50 Sodium Chloride 0.9% 50 ml @ 100 mls/hr IVPB Q24H [facility] Rx#:[id number] Oral 360 280 Output: Urine 2400 1300 Other: Voiding Method Self-Catheterization Self-Catheterization Ileal Conduit (Right) Ileal Conduit (Right) # Bowel Movements 2 1 - Exam Right trochanteric and sacral decubitus ulcers with some slough, mild tenderness , mild erythema - Labs CBC & Chem 7: 06/07/22 06:50 06/07/22 06:50 Labs: Abnormal Lab Results - Last 24 Hours (Table) 06/06/22 06/06/22 06/06/22 Range/Units 12:02 17:13 21:14 WBC (4.50-10.00) X 10*3/uL RBC (4.10-5.20) X 10*6/uL Hgb (12.0-15.0) g/dL Hct (37.2-46.3) % MCHC (32.0-37.0) g/dL RDW (11.5-14.5) % Plt Count (140-440) X 10*3/uL Carbon Dioxide (20.0-27.5) mmol/L Anion Gap (10.00-18.00) mmol/L Glucose (70-110) mg/dL POC Glucose (mg/dL) 111 H 129 H 155 H (70-110) mg/dL Calcium (8.7-10.3) mg/dL 06/07/22 06/07/22 Range/Units 06:50 06:50 WBC 11.71 H (4.50-10.00) X 10*3/uL RBC 3.45 L (4.10-5.20) X 10*6/uL Hgb 10.2 L (12.0-15.0) g/dL Hct 32.9 L (37.2-46.3) % MCHC 31.0 L (32.0-37.0) g/dL RDW 18.8 H (11.5-14.5) % Plt Count 448 H (140-440) X 10*3/uL Carbon Dioxide 28.6 H (20.0-27.5) mmol/L Anion Gap 8.90 L (10.00-18.00) mmol/L Glucose 114 H (70-110) mg/dL POC Glucose (mg/dL) (70-110) mg/dL Calcium 8.1 L (8.7-10.3) mg/dL Microbiology - Last 24 Hours (Table) 06/05/22 11:43 Gram Stain - Preliminary Other - Other Tissue Culture - Preliminary Gram Neg Bacilli Assessment and Plan (1) Stage III pressure ulcer of right buttock Narrative/Plan: Continue antibiotics per infectious disease. Continue offloading and protein support. Continue Local wound care. Current Visit: Yes Status: Acute Code(s): L89.313 - PRESSURE ULCER OF RIGHT BUTTOCK, STAGE 3 SNOMED Code(s): 03867754234116
[2022-06-07 10:55] LABS: Basophils # (A) 0.05 X 10*3/uL (0.00-0.10); Basophils % (A) 0.4 %; Eosinophils # (A) 0 X 10*3/uL (0.04-0.35); Eosinophils % (A) 0 %; Immature Grans, Automated 0.7 %; Lymphocytes # (A) 3.02 X 10*3/uL (0.90-5.00); Lymphocytes % (A) 25.8 %; Macrocytosis (M) 2+; Monocytes # (A) 0.55 X 10*3/uL (0.20-1.00); Monocytes % (A) 4.7 %; Neutrophils # (A) 8.01 X 10*3/uL (1.80-7.70); Neutrophils % (A) 68.4 %
[2022-06-07 12:18] LABS: Glucose,Whole Blood 136 mg/dL (70-110)
--- NOTE | 2022-06-07 13:53 | P.PN ---
Subjective This is a pleasant 56 years old female who presents with right hip wound pressure ulcer stage IV status post debridement yesterday 06/05 by surgery team Also with evidence of E. coli UTI Patient is followed closely by ID team and currently covered with broad-spectrum antibiotics ceftriaxone and IV daptomycin Patient lying in bed comfortable, denies any pain in her right foot wound, she has history of right lower quadrant urostomy and status post history of vasectomy However she still complaining from diarrhea, she stated that she has chronic diarrhea but now is worse since admission probably related to her infection and she is having at about 2-3 times per day, soft but today she has more little watery diarrhea therefore a sample was sent for C. diff. Patient however denies abdominal pain, no vomiting and she ate well Wound culture and sensitivity is pending, showing gram-negative bacilli 06/07/2022 Patient overall doing well, she denies significant pain at her right surgical wound, she still has diarrhea and rectal tube was placed, her blood culture came back positive today for enterococcus group D, patient is already is been seen by ID team and or the she was given ceftriaxone and IV daptomycin. Chest x-rays negative for acute processes. WBC is having elevated 11.7. Hemoglobin 10.2. Platelet count 448. Creatinine normal 0.7.Hemoglobin is stable at 10.2 Extremities on ceftriaxone and IV daptomycin with ID team and surgery team on the case Objective - Vital Signs Vital signs: Vital Signs Temp 98.5 F 06/07/22 11:07 Pulse 103 H 06/07/22 11:07 Resp 16 06/07/22 11:07 BP 107/69 06/07/22 11:07 Pulse Ox 95 06/07/22 11:07 FiO2 Intake & Output 06/06/22 06/07/22 06/07/22 18:59 06:59 18:59 Intake Total 360 330 Output Total 2400 1300 Balance -2039 Intake: Intake, IV Titration 50 Amount DAPTOmycin 500 mg In 50 Sodium Chloride 0.9% 50 ml @ 100 mls/hr IVPB Q24H [facility] Rx#:[id number] Oral 360 280 Output: Urine 2400 1300 Other: Voiding Method Self-Catheterization Self-Catheterization Ileal Conduit (Right) Ileal Conduit (Right) # Bowel Movements 2 1 - Exam GENERAL: The patient is alert and oriented x3, not in any acute distress. Well developed, well nourished. HEENT: Pupils are round and equally reacting to light. EOMI. No scleral icterus. No conjunctival pallor. Normocephalic, atraumatic. No pharyngeal erythema. No thyromegaly. CARDIOVASCULAR: S1 and S2 present. No murmurs, rubs, or gallops. PULMONARY: Chest is clear to auscultation, no wheezing or crackles. -ABDOMEN: Soft, nontender, nondistended, normoactive bowel sounds. No palpable organomegaly. Right lower quadrant urostomy MUSCULOSKELETAL: No joint swelling or deformity. -EXTREMITIES: No cyanosis, clubbing, or pedal edema. Right hip wound with a dressing and a Place, rest of exam is deferred to surgery and ID team NEUROLOGICAL: Gross neurological examination did not reveal any focal deficits. SKIN: No rashes. no petechiae. - Labs CBC & Chem 7: 06/07/22 06:50 06/07/22 06:50 Labs: Abnormal Lab Results - Last 24 Hours (Table) 06/06/22 06/06/22 06/07/22 Range/Units 17:13 21:14 06:50 WBC 11.71 H (4.50-10.00) X 10*3/uL RBC 3.45 L (4.10-5.20) X 10*6/uL Hgb 10.2 L (12.0-15.0) g/dL Hct 32.9 L (37.2-46.3) % MCHC 31.0 L (32.0-37.0) g/dL RDW 18.8 H (11.5-14.5) % Plt Count 448 H (140-440) X 10*3/uL Plt Count Comment INCREASED A Immature Gran # 0.08 H (0.00-0.04) X 10*3/uL Neutrophils # 8.01 H (1.80-7.70) X 10*3/uL Eosinophils # 0 L (0.04-0.35) X 10*3/uL Carbon Dioxide (20.0-27.5) mmol/L Anion Gap (10.00-18.00) mmol/L Glucose (70-110) mg/dL POC Glucose (mg/dL) 129 H 155 H (70-110) mg/dL Calcium (8.7-10.3) mg/dL 12/18/22 12/18/22 Range/Units 06:50 12:15 WBC (4.50-10.00) X 10*3/uL RBC (4.10-5.20) X 10*6/uL Hgb (12.0-15.0) g/dL Hct (37.2-46.3) % MCHC (32.0-37.0) g/dL RDW (11.5-14.5) % Plt Count (140-440) X 10*3/uL Plt Count Comment Immature Gran # (0.00-0.04) X 10*3/uL Neutrophils # (1.80-7.70) X 10*3/uL Eosinophils # (0.04-0.35) X 10*3/uL Carbon Dioxide 28.6 H (20.0-27.5) mmol/L Anion Gap 8.90 L (10.00-18.00) mmol/L Glucose 114 H (70-110) mg/dL POC Glucose (mg/dL) 136 H (70-110) mg/dL Calcium 8.1 L (8.7-10.3) mg/dL Microbiology - Last 24 Hours (Table) 06/05/22 11:43 Anaerobic Culture - Preliminary Other - Other Group D Enterococcus 06/05/22 11:43 Gram Stain - Final Other - Other Tissue Culture - Final Enterobacter cloacae Escherichia coli Assessment and Plan Assessment: Right hip wound pressure ulcer, stage IV status post debridement 06/05 with surrounding and soft tissue infection and cellulitis E coli acute urinary tract infection Group D enterococcus bacteremia Chronic anemia with hemoglobin stable History of asthma Diabetes mellitus History of sleep apnea Plan: Continue with IV antibiotic as per ID team, he was ceftriaxone and IV daptomycin Monitor hemoglobin Infectious disease and surgery team consult Labs and medication were reviewed.. Continue same treatment. Continue with symptomatic treatment. Resume home medication. Monitor labs and vitals. DVT and GI prophylaxis. Further recommendations as per clinical course of the patient DVT prophylaxis: Subcutaneous heparin GI Prophylaxis: Pepcid PT/OT: Pending Prognosis is guarded
[2022-06-07 17:14] LABS: Glucose,Whole Blood 142 mg/dL (70-110)
[2022-06-07] MEDS: SODIUM CHLORIDE 0.9% 1,000 ML IV SCH (17:58)
[2022-06-07] MEDS: DAPTOmycin 500 MG in SODIUM CHLORIDE 0.9% 50 ML IVPB SCH (20:54)
[2022-06-07] MEDS: METOPROLOL SUCCINATE (ER) 25 MG TAB.ER.24H PO SCH (20:55)
[2022-06-07 20:58] LABS: Glucose,Whole Blood 168 mg/dL (70-110)
--- NOTE | 2022-06-07 21:35 | P.PN ---
Subjective Progress Note Date: 06/07/22 Principal diagnosis: Urinary tract infection and infected right hip wound Patient is a 56 year female past medical history significant for diabetes mellitus recurrent UTI and chronic nonhealing wound to the right hip area admitted to the hospital concerning for wound infection any UTI in this patient had multiple antibiotic ALLERGIES. Patient is status post surgical debridement of her wound completed on 06/05/2022 On today's evaluation that is 06/07/2022, the patient continues to be afebrile, the patient is breathing comfortably on room air, the patient denies chest pain shortness of breath or cough , the patient denies abdominal pain diarrhea has slowed down Objective - Vital Signs Vital signs: Vital Signs Temp 98.5 F 06/07/22 11:07 Pulse 103 H 06/07/22 11:07 Resp 16 06/07/22 11:07 BP 107/69 06/07/22 11:07 Pulse Ox 95 06/07/22 11:07 FiO2 Intake & Output 06/06/22 06/07/22 06/07/22 18:59 06:59 18:59 Intake Total 360 330 Output Total 2400 1300 Balance -2039 Intake: Intake, IV Titration 50 Amount DAPTOmycin 500 mg In 50 Sodium Chloride 0.9% 50 ml @ 100 mls/hr IVPB Q24H [facility] Rx#:[id number] Oral 360 280 Output: Urine 2400 1300 Other: Voiding Method Self-Catheterization Self-Catheterization Ileal Conduit (Right) Ileal Conduit (Right) # Bowel Movements 2 1 - Exam GENERAL DESCRIPTION: Middle-aged female lying in bed in no distress RESPIRATORY SYSTEM: Unlabored breathing , decreased breath sounds at bases HEART: S1 S2 regular rate and rhythm , ABDOMEN: Soft , no tenderness EXTREMITIES: Right hip/gluteal wound as well as sacral wound are currently dressed - Labs CBC & Chem 7: 06/07/22 06:50 06/07/22 06:50 Labs: Abnormal Lab Results - Last 24 Hours (Table) 06/06/22 06/06/22 06/07/22 Range/Units 17:13 21:14 06:50 WBC 11.71 H (4.50-10.00) X 10*3/uL RBC 3.45 L (4.10-5.20) X 10*6/uL Hgb 10.2 L (12.0-15.0) g/dL Hct 32.9 L (37.2-46.3) % MCHC 31.0 L (32.0-37.0) g/dL RDW 18.8 H (11.5-14.5) % Plt Count 448 H (140-440) X 10*3/uL Plt Count Comment INCREASED A Immature Gran # 0.08 H (0.00-0.04) X 10*3/uL Neutrophils # 8.01 H (1.80-7.70) X 10*3/uL Eosinophils # 0 L (0.04-0.35) X 10*3/uL Carbon Dioxide (20.0-27.5) mmol/L Anion Gap (10.00-18.00) mmol/L Glucose (70-110) mg/dL POC Glucose (mg/dL) 129 H 155 H (70-110) mg/dL Calcium (8.7-10.3) mg/dL 06/07/22 Range/Units 06:50 WBC (4.50-10.00) X 10*3/uL RBC (4.10-5.20) X 10*6/uL Hgb (12.0-15.0) g/dL Hct (37.2-46.3) % MCHC (32.0-37.0) g/dL RDW (11.5-14.5) % Plt Count (140-440) X 10*3/uL Plt Count Comment Immature Gran # (0.00-0.04) X 10*3/uL Neutrophils # (1.80-7.70) X 10*3/uL Eosinophils # (0.04-0.35) X 10*3/uL Carbon Dioxide 28.6 H (20.0-27.5) mmol/L Anion Gap 8.90 L (10.00-18.00) mmol/L Glucose 114 H (70-110) mg/dL POC Glucose (mg/dL) (70-110) mg/dL Calcium 8.1 L (8.7-10.3) mg/dL Microbiology - Last 24 Hours (Table) 06/05/22 11:43 Gram Stain - Preliminary Other - Other Tissue Culture - Preliminary Gram Neg Bacilli Assessment and Plan (1) Unspecified open wound, right hip, subsequent encounter Current Visit: Yes Status: Acute Code(s): S71.001D - UNSPECIFIED OPEN WOUND, RIGHT HIP, SUBSEQUENT ENCOUNTER SNOMED Code(s): 86908156538391987 (2) UTI (urinary tract infection) Current Visit: Yes Status: Acute Code(s): N39.0 - URINARY TRACT INFECTION, SITE NOT SPECIFIED SNOMED Code(s): 03614031 Plan: 1patient with a nonhealing wound to the right hip area which seems to be deep tunneling and did have surrounding inflammatory changes and maceration c oncerning for wound infection possibly related to gram-positive skin eduarda however gram-negative infection not entirely excluded. 2patient did have a positive UA concerning for a gram-negative enteric pathogen with urine cultures currently growing E. coli that is sensitive pathogen antibiotic 3patient with multiple antibiotic allergies that would limit the number of antibiotics safe to use. 4patient did have a stage III right gluteal pressure ulcer local care switched over to medahoney followed by moist dressing changes daily cultures will be followed 5patient did have a stage IV sacral pressure ulcer with the bone palpable status post debridement, local wound care with the medahoney followed by moist dressing changes daily 6persistent local cultures are not showing drug-resistant Enterobacter in addition to E. coli and enterococcus with a sensitivity on enterococcus is currently pending we will discontinue Rocephin and start the patient on ertapenem continue with the daptomycin until sensitivities on enterococcus are finalized Time with Patient: Less than 30
[2022-06-07] MEDS ORDERED: ERTAPENEM 1 GM in SODIUM CHLORIDE 0.9% 50 ML IVPB SCH (21:45)
[2022-06-07] MEDS: ERTAPENEM 1 GM in SODIUM CHLORIDE 0.9% 50 ML IVPB SCH (21:47)
[2022-06-08 07:05] LABS: Glucose,Whole Blood 119 mg/dL (70-110)
[2022-06-08] MEDS: INSULIN ASPART (NovoLOG) 100 UNIT/ML VIAL SQ SCH ×4 (07:40→20:39)
[2022-06-08 08:58] LABS: HCT 28.9 % (37.2-46.3); HGB 8.7 g/dL (12.0-15.0); MCH 29.7 pg (27.0-32.0); MCHC 30.1 g/dL (32.0-37.0); MCV 98.6 fL (80.0-97.0); Mean Platelet Volume 10.5 fL (9.5-12.2); NRBC Per 100 WBC 0 /100 WBCS (0.0-0.0); Platelet Count 428 X 10*3/uL (140-440); RBC 2.93 X 10*6/uL (4.10-5.20); RDW 18.9 % (11.5-14.5); WBC 11.55 X 10*3/uL (4.50-10.00)
[2022-06-08 09:07] LABS: African American GFR (CKD) 119.3 (60.0-200.0); Anion Gap 8.7 mmol/L (10.00-18.00); BUN/Creat Ratio 24.2 Ratio (12.00-20.00); Blood Urea Nitrogen 14.4 mg/dL (9.0-27.0); Calcium 7.8 mg/dL (8.7-10.3); Carbon Dioxide 26.9 mmol/L (20.0-27.5); Non-African American GFR(CKD) 102.9 (60.0-200.0); Potassium 4.2 mmol/L (3.5-5.5)
[2022-06-08] MEDS: NON FORMULARY DRUG (Methenamine Hippurate [Methenamine Hippurate] 1 GM Tablet) PO SCH ×2 (09:18→20:21)
[2022-06-08] MEDS: LACTOBACILLUS ACIDOPH & BULGAR 1 EACH PACKET PO SCH (09:18)
[2022-06-08 09:38] LABS: Basophils # (A) 0.04 X 10*3/uL (0.00-0.10); Basophils % (A) 0.3 %; Eosinophils # (A) 0 X 10*3/uL (0.04-0.35); Eosinophils % (A) 0 %; Immature Grans, Automated 0.5 %; Lymphocytes # (A) 2.83 X 10*3/uL (0.90-5.00); Lymphocytes % (A) 24.5 %; Monocytes # (A) 0.77 X 10*3/uL (0.20-1.00); Monocytes % (A) 6.7 %; Neutrophils # (A) 7.85 X 10*3/uL (1.80-7.70)
[2022-06-08 09:39] LABS: Rouleaux PRESENT
[2022-06-08] MEDS: HEPARIN SODIUM,PORCINE/PF 5,000 UNIT/0.5 ML SYRINGE SQ SCH ×2 (09:43→20:39)
[2022-06-08] MEDS: FAMOTIDINE 20 MG TAB PO SCH ×2 (09:43→20:40)
[2022-06-08] MEDS: LORATADINE 10 MG TAB PO SCH (09:43)
[2022-06-08] MEDS: allopurinoL 300 MG TAB PO SCH (09:43)
[2022-06-08] MEDS: POTASSIUM CHLORIDE ER 20 MEQ TAB.ER PO SCH (09:44)
[2022-06-08] MEDS: CHOLESTYRAMINE (WITH SUGAR) 4 GM PACKET PO SCH (09:44)
[2022-06-08] MEDS: MAGNESIUM OXIDE 400 MG TAB PO SCH ×2 (09:44→20:40)
[2022-06-08] MEDS: PANTOPRAZOLE 40 MG TABLET PO SCH (09:44)
[2022-06-08] MEDS: TORSEMIDE 20 MG TAB PO SCH ×2 (09:44→20:39)
[2022-06-08 12:04] LABS: Glucose,Whole Blood 151 mg/dL (70-110)
--- NOTE | 2022-06-08 12:45 | P.PN ---
Subjective Progress Note Date: 06/08/22 CHIEF COMPLAINT: Sacral decubitus ulcer and right hip ulcer HISTORY OF PRESENT ILLNESS: Patient is postop day #3 status post debridement of sacral decubitus ulcer and right trochanteric ulcer. Her pain is controlled. She is sitting in bed comfortably. She does have fecal management system placed in for diarrhea. Infectious disease following in regards to antibiotics. Patient had a low-grade temperature 100.5 WBC about the same at 11.5 Hgb 8.7 platelet 428 sodium is 136 potassium 4.2 creatinine 0.6 stool for C. diff negative Patient seen and examined with Dr. fitzgerald PHYSICAL EXAM: VITAL SIGNS: Reviewed. GENERAL: Well-developed in no acute distress. HEENT: No sclera icterus. Extraocular movements grossly intact. Moist buccal mucosa. Head is atraumatic, normocephalic. ABDOMEN: Soft. Nondistended. Nontender. NEUROLOGIC: Alert and oriented. Cranial nerves II through XII grossly intact. ASSESSMENT: 1. Sacral decubitus ulcer status post debridement 2. Right trochanteric ulcer status post debridement 3. History of spina bifida PLAN: -Continue consistent carbohydrate diet -Continue local wound care -Continue antibiotics per infectious disease -Continue supportive care -Continue offloading Physician [employer] note has been reviewed by physician. Signing provider agrees with the documented findings, assessment, and plan of care. Objective - Vital Signs Vital signs: Vital Signs Temp 100.5 F H 06/08/22 11:17 Pulse 89 06/08/22 11:17 Resp 16 06/08/22 11:17 BP 117/77 06/08/22 11:17 Pulse Ox 97 06/08/22 11:17 FiO2 Intake & Output 06/07/22 06/08/22 06/08/22 18:59 06:59 18:59 Intake Total 660 Output Total 300 1000 600 Balance -300 -340 -600 Intake: Intake, IV Titration 300 Amount DAPTOmycin 500 mg In 50 Sodium Chloride 0.9% 50 ml @ 100 mls/hr IVPB Q24H [facility] Rx#:[id number] Ertapenem 1 gm In Sodium 50 Chloride 0.9% 50 ml @ 100 mls/hr IVPB DAILY@2200 [facility] Rx#:[id number] Sodium Chloride 0.9% 1, 200 000 ml @ 20 mls/hr IV . Q24H [facility] Rx#:[id number] Oral 360 Output: Urine 300 1000 600 Other: Voiding Method Self-Catheterization Self-Catheterization # Bowel Movements 1 - Labs CBC & Chem 7: 06/08/22 05:37 06/08/22 05:37 Labs: Abnormal Lab Results - Last 24 Hours (Table) 06/07/22 06/07/22 06/08/22 Range/Units 17:09 20:57 05:37 WBC 11.55 H (4.50-10.00) X 10*3/uL RBC 2.93 L (4.10-5.20) X 10*6/uL Hgb 8.7 L (12.0-15.0) g/dL Hct 28.9 L (37.2-46.3) % MCV 98.6 H (80.0-97.0) fL MCHC 30.1 L (32.0-37.0) g/dL RDW 18.9 H (11.5-14.5) % Plt Count Comment DECREASED A Immature Gran # 0.06 H (0.00-0.04) X 10*3/uL Neutrophils # 7.85 H (1.80-7.70) X 10*3/uL Eosinophils # 0 L (0.04-0.35) X 10*3/uL Anion Gap (10.00-18.00) mmol/L BUN/Creatinine Ratio (12.00-20.00) Ratio Glucose (70-110) mg/dL POC Glucose (mg/dL) 142 H 168 H (70-110) mg/dL Calcium (8.7-10.3) mg/dL 06/08/22 06/08/22 06/08/22 Range/Units 05:37 07:03 12:02 WBC (4.50-10.00) X 10*3/uL RBC (4.10-5.20) X 10*6/uL Hgb (12.0-15.0) g/dL Hct (37.2-46.3) % MCV (80.0-97.0) fL MCHC (32.0-37.0) g/dL RDW (11.5-14.5) % Plt Count Comment Immature Gran # (0.00-0.04) X 10*3/uL Neutrophils # (1.80-7.70) X 10*3/uL Eosinophils # (0.04-0.35) X 10*3/uL Anion Gap 8.70 L (10.00-18.00) mmol/L BUN/Creatinine Ratio 24.20 H (12.00-20.00) Ratio Glucose 122 H (70-110) mg/dL POC Glucose (mg/dL) 119 H 151 H (70-110) mg/dL Calcium 7.8 L (8.7-10.3) mg/dL Microbiology - Last 24 Hours (Table) 06/05/22 11:43 Anaerobic Culture - Preliminary Other - Other Group D Enterococcus 06/05/22 11:43 Gram Stain - Final Other - Other Tissue Culture - Final Enterobacter cloacae Escherichia coli
--- NOTE | 2022-06-08 13:50 | P.PN ---
Subjective This is a pleasant 56 years old female who presents with right hip wound pressure ulcer stage IV status post debridement yesterday 06/05 by surgery team Also with evidence of E. coli UTI Patient is followed closely by ID team and currently covered with broad-spectrum antibiotics ceftriaxone and IV daptomycin Patient lying in bed comfortable, denies any pain in her right foot wound, she has history of right lower quadrant urostomy and status post history of vasectomy However she still complaining from diarrhea, she stated that she has chronic diarrhea but now is worse since admission probably related to her infection and she is having at about 2-3 times per day, soft but today she has more little watery diarrhea therefore a sample was sent for C. diff. Patient however denies abdominal pain, no vomiting and she ate well Wound culture and sensitivity is pending, showing gram-negative bacilli 06/07/2022 Patient overall doing well, she denies significant pain at her right surgical wound, she still has diarrhea and rectal tube was placed, her blood culture came back positive today for enterococcus group D, patient is already is been seen by ID team and or the she was given ceftriaxone and IV daptomycin. Chest x-rays negative for acute processes. WBC is having elevated 11.7. Hemoglobin 10.2. Platelet count 448. Creatinine normal 0.7.Hemoglobin is stable at 10.2 Extremities on ceftriaxone and IV daptomycin with ID team and surgery team on the case 06/08/2022 Patient still feels generally weak and not well with some malaise, she still have fever of 100.5 Yesterday antibiotics were adjusted into daptomycin and IV Invanz and instead of Rocephin She has a rectal tube for her diarrhea, however her stool becoming gradually mor e formed and her rectal tube this morning was empty. Hemoglobin 8.7. WBC is 12.5. We will keep monitoring Objective - Vital Signs Vital signs: Vital Signs Temp 100.5 F H 06/08/22 11:17 Pulse 89 06/08/22 11:17 Resp 16 06/08/22 11:17 BP 117/77 06/08/22 11:17 Pulse Ox 97 06/08/22 11:17 FiO2 Intake & Output 06/07/22 06/08/22 06/08/22 18:59 06:59 18:59 Intake Total 660 Output Total 300 1000 600 Balance -300 -340 -600 Intake: Intake, IV Titration 300 Amount DAPTOmycin 500 mg In 50 Sodium Chloride 0.9% 50 ml @ 100 mls/hr IVPB Q24H [facility] Rx#:[id number] Ertapenem 1 gm In Sodium 50 Chloride 0.9% 50 ml @ 100 mls/hr IVPB DAILY@2200 [facility] Rx#:[id number] Sodium Chloride 0.9% 1, 200 000 ml @ 20 mls/hr IV . Q24H [facility] Rx#:[id number] Oral 360 Output: Urine 300 1000 600 Other: Voiding Method Self-Catheterization Self-Catheterization # Bowel Movements 1 - Exam GENERAL: The patient is alert and oriented x3, not in any acute distress. Well developed, well nourished. HEENT: Pupils are round and equally reacting to light. EOMI. No scleral icterus. No conjunctival pallor. Normocephalic, atraumatic. No pharyngeal erythema. No thyromegaly. CARDIOVASCULAR: S1 and S2 present. No murmurs, rubs, or gallops. PULMONARY: Chest is clear to auscultation, no wheezing or crackles. -ABDOMEN: Soft, nontender, nondistended, normoactive bowel sounds. No palpable organomegaly. Right lower quadrant urostomy MUSCULOSKELETAL: No joint swelling or deformity. -EXTREMITIES: No cyanosis, clubbing, or pedal edema. Right hip wound with a dressing and a Place, rest of exam is deferred to surgery and ID team NEUROLOGICAL: Gross neurological examination did not reveal any focal deficits. SKIN: No rashes. no petechiae. - Labs CBC & Chem 7: 06/08/22 05:37 06/08/22 05:37 Labs: Abnormal Lab Results - Last 24 Hours (Table) 06/07/22 06/07/22 06/08/22 Range/Units 17:09 20:57 05:37 WBC 11.55 H (4.50-10.00) X 10*3/uL RBC 2.93 L (4.10-5.20) X 10*6/uL Hgb 8.7 L (12.0-15.0) g/dL Hct 28.9 L (37.2-46.3) % MCV 98.6 H (80.0-97.0) fL MCHC 30.1 L (32.0-37.0) g/dL RDW 18.9 H (11.5-14.5) % Plt Count Comment DECREASED A Immature Gran # 0.06 H (0.00-0.04) X 10*3/uL Neutrophils # 7.85 H (1.80-7.70) X 10*3/uL Eosinophils # 0 L (0.04-0.35) X 10*3/uL Anion Gap (10.00-18.00) mmol/L BUN/Creatinine Ratio (12.00-20.00) Ratio Glucose (70-110) mg/dL POC Glucose (mg/dL) 142 H 168 H (70-110) mg/dL Calcium (8.7-10.3) mg/dL 06/08/22 06/08/22 06/08/22 Range/Units 05:37 07:03 12:02 WBC (4.50-10.00) X 10*3/uL RBC (4.10-5.20) X 10*6/uL Hgb (12.0-15.0) g/dL Hct (37.2-46.3) % MCV (80.0-97.0) fL MCHC (32.0-37.0) g/dL RDW (11.5-14.5) % Plt Count Comment Immature Gran # (0.00-0.04) X 10*3/uL Neutrophils # (1.80-7.70) X 10*3/uL Eosinophils # (0.04-0.35) X 10*3/uL Anion Gap 8.70 L (10.00-18.00) mmol/L BUN/Creatinine Ratio 24.20 H (12.00-20.00) Ratio Glucose 122 H (70-110) mg/dL POC Glucose (mg/dL) 119 H 151 H (70-110) mg/dL Calcium 7.8 L (8.7-10.3) mg/dL Microbiology - Last 24 Hours (Table) 06/05/22 11:43 Anaerobic Culture - Preliminary Other - Other Anaerobic Gm Negative Bacilli Group D Enterococcus 06/05/22 11:43 Gram Stain - Final Other - Other Tissue Culture - Final Enterobacter cloacae Escherichia coli Assessment and Plan Assessment: Right hip wound pressure ulcer, stage IV status post debridement 06/05 with dawood rounding and soft tissue infection and cellulitis E coli acute urinary tract infection Group D enterococcus bacteremia Chronic anemia with hemoglobin stable History of asthma Diabetes mellitus History of sleep apnea Plan: Continue with IV antibiotic as per ID team, he was ertapenem and IV daptomycin Monitor hemoglobin Infectious disease and surgery team consult Labs and medication were reviewed.. Continue same treatment. Continue with symptomatic treatment. Resume home medication. Monitor labs and vitals. DVT and GI prophylaxis. Further recommendations as per clinical course of the patient DVT prophylaxis: Subcutaneous heparin GI Prophylaxis: Pepcid PT/OT: Pending Prognosis is guarded
[2022-06-08] MEDS: SODIUM CHLORIDE 0.9% 1,000 ML IV SCH (14:15)
[2022-06-08 17:39] LABS: Glucose,Whole Blood 161 mg/dL (70-110)
[2022-06-08 20:34] LABS: Glucose,Whole Blood 184 mg/dL (70-110)
[2022-06-08] MEDS: DAPTOmycin 500 MG in SODIUM CHLORIDE 0.9% 50 ML IVPB SCH (20:39)
[2022-06-08] MEDS: METOPROLOL SUCCINATE (ER) 25 MG TAB.ER.24H PO SCH (20:40)
[2022-06-08] MEDS: ACETAMINOPHEN TAB 325 MG TAB PO PRN (20:40)
[2022-06-08] MEDS: ERTAPENEM 1 GM in SODIUM CHLORIDE 0.9% 50 ML IVPB SCH (22:16)
--- NOTE | 2022-06-08 23:07 | P.PN ---
Subjective Progress Note Date: 06/08/22 Principal diagnosis: Urinary tract infection and infected right hip wound Patient is a 56 year female past medical history significant for diabetes mellitus recurrent UTI and chronic nonhealing wound to the right hip area admitted to the hospital concerning for wound infection any UTI in this patient had multiple antibiotic ALLERGIES. Patient is status post surgical debridement of her wound completed on 06/05/2022 On today's evaluation that is 06/08/2022, the patient did have a low-grade fever 100.5F today, the patient is breathing comfortably on room air, the patient denies chest pain shortness of breath or cough , the patient denies abdominal pain diarrhea has resolved Objective - Vital Signs Vital signs: Vital Signs Temp 100.5 F H 06/08/22 11:17 Pulse 89 06/08/22 11:17 Resp 16 06/08/22 11:17 BP 117/77 06/08/22 11:17 Pulse Ox 97 06/08/22 11:17 FiO2 Intake & Output 06/07/22 06/08/22 06/08/22 18:59 06:59 18:59 Intake Total 660 Output Total 300 1000 600 Balance -300 -340 -600 Intake: Intake, IV Titration 300 Amount DAPTOmycin 500 mg In 50 Sodium Chloride 0.9% 50 ml @ 100 mls/hr IVPB Q24H [facility] Rx#:[id number] Ertapenem 1 gm In Sodium 50 Chloride 0.9% 50 ml @ 100 mls/hr IVPB DAILY@2200 [facility] Rx#:[id number] Sodium Chloride 0.9% 1, 200 000 ml @ 20 mls/hr IV . Q24H [facility] Rx#:[id number] Oral 360 Output: Urine 300 1000 600 Other: Voiding Method Self-Catheterization Self-Catheterization # Bowel Movements 1 - Exam GENERAL DESCRIPTION: Middle-aged female lying in bed in no distress RESPIRATORY SYSTEM: Unlabored breathing , decreased breath sounds at bases HEART: S1 S2 regular rate and rhythm , ABDOMEN: Soft , no tenderness EXTREMITIES: Right hip/gluteal wound as well as sacral wound are currently dressed - Labs CBC & Chem 7: 06/08/22 05:37 06/08/22 05:37 Labs: Abnormal Lab Results - Last 24 Hours (Table) 06/07/22 06/07/22 06/08/22 Range/Units 17:09 20:57 05:37 WBC 11.55 H (4.50-10.00) X 10*3/uL RBC 2.93 L (4.10-5.20) X 10*6/uL Hgb 8.7 L (12.0-15.0) g/dL Hct 28.9 L (37.2-46.3) % MCV 98.6 H (80.0-97.0) fL MCHC 30.1 L (32.0-37.0) g/dL RDW 18.9 H (11.5-14.5) % Plt Count Comment DECREASED A Immature Gran # 0.06 H (0.00-0.04) X 10*3/uL Neutrophils # 7.85 H (1.80-7.70) X 10*3/uL Eosinophils # 0 L (0.04-0.35) X 10*3/uL Anion Gap (10.00-18.00) mmol/L BUN/Creatinine Ratio (12.00-20.00) Ratio Glucose (70-110) mg/dL POC Glucose (mg/dL) 142 H 168 H (70-110) mg/dL Calcium (8.7-10.3) mg/dL 06/08/22 06/08/22 06/08/22 Range/Units 05:37 07:03 12:02 WBC (4.50-10.00) X 10*3/uL RBC (4.10-5.20) X 10*6/uL Hgb (12.0-15.0) g/dL Hct (37.2-46.3) % MCV (80.0-97.0) fL MCHC (32.0-37.0) g/dL RDW (11.5-14.5) % Plt Count Comment Immature Gran # (0.00-0.04) X 10*3/uL Neutrophils # (1.80-7.70) X 10*3/uL Eosinophils # (0.04-0.35) X 10*3/uL Anion Gap 8.70 L (10.00-18.00) mmol/L BUN/Creatinine Ratio 24.20 H (12.00-20.00) Ratio Glucose 122 H (70-110) mg/dL POC Glucose (mg/dL) 119 H 151 H (70-110) mg/dL Calcium 7.8 L (8.7-10.3) mg/dL Microbiology - Last 24 Hours (Table) 06/05/22 11:43 Anaerobic Culture - Preliminary Other - Other Group D Enterococcus 06/05/22 11:43 Gram Stain - Final Other - Other Tissue Culture - Final Enterobacter cloacae Escherichia coli Assessment and Plan (1) Unspecified open wound, right hip, subsequent encounter Current Visit: Yes Status: Acute Code(s): S71.001D - UNSPECIFIED OPEN WOUND, RIGHT HIP, SUBSEQUENT ENCOUNTER SNOMED Code(s): 00192345165254512 (2) UTI (urinary tract infection) Current Visit: Yes Status: Acute Code(s): N39.0 - URINARY TRACT INFECTION, SITE NOT SPECIFIED SNOMED Code(s): 86542539 Plan: 1patient with a nonhealing wound to the right hip area which seems to be deep tunneling and did have surrounding inflammatory changes and maceration concerning for wound infection possibly related to gram-positive skin eduarda however gram-negative infection not entirely excluded. 2patient did have a positive UA concerning for a gram-negative enteric pathogen with urine cultures currently growing E. coli that is sensitive pathogen antibiotic 3patient with multiple antibiotic allergies that would limit the number of antibiotics safe to use. 4patient did have a stage III right gluteal pressure ulcer local care switched over to medahoney followed by moist dressing changes daily cultures will be followed 5patient did have a stage IV sacral pressure ulcer with the bone palpable status post debridement, local wound care with the medahoney followed by moist dressing changes daily 6persistent local cultures are not showing drug-resistant Enterobacter in addition to E. coli and enterococcus which is penicillin sensitive we will continue the patient on ertapenem however discontinue daptomycin 7-patient did have a low-grade fever blood culture has been repeated if negative patient will get a Mckeon catheter as the patient seemed to have problems with PICC line placement in the past, vascular surgery has been reconsulted Time with Patient: Less than 30
[2022-06-09] MEDS: ACETAMINOPHEN TAB 325 MG TAB PO PRN ×2 (04:14→20:22)
[2022-06-09 07:17] LABS: Glucose,Whole Blood 117 mg/dL (70-110)
[2022-06-09] MEDS: LORATADINE 10 MG TAB PO SCH (07:44)
[2022-06-09] MEDS: LACTOBACILLUS ACIDOPH & BULGAR 1 EACH PACKET PO SCH (07:44)
[2022-06-09] MEDS: HEPARIN SODIUM,PORCINE/PF 5,000 UNIT/0.5 ML SYRINGE SQ SCH ×2 (07:44→20:22)
[2022-06-09] MEDS: MAGNESIUM OXIDE 400 MG TAB PO SCH ×2 (07:44→20:22)
[2022-06-09] MEDS: FAMOTIDINE 20 MG TAB PO SCH ×2 (07:45→08:28)
[2022-06-09] MEDS: NON FORMULARY DRUG (Methenamine Hippurate [Methenamine Hippurate] 1 GM Tablet) PO SCH ×2 (07:45→19:49)
[2022-06-09] MEDS: INSULIN ASPART (NovoLOG) 100 UNIT/ML VIAL SQ SCH ×4 (07:53→21:03)
[2022-06-09] MEDS: allopurinoL 300 MG TAB PO SCH (08:28)
[2022-06-09] MEDS: PANTOPRAZOLE 40 MG TABLET PO SCH (08:28)
[2022-06-09] MEDS: POTASSIUM CHLORIDE ER 20 MEQ TAB.ER PO SCH (08:28)
[2022-06-09] MEDS: TORSEMIDE 20 MG TAB PO SCH ×2 (08:28→20:22)
[2022-06-09 08:59] LABS: HCT 28.5 % (37.2-46.3); HGB 8.8 g/dL (12.0-15.0); MCH 29.4 pg (27.0-32.0); MCHC 30.9 g/dL (32.0-37.0); MCV 95.3 fL (80.0-97.0); Mean Platelet Volume 10.3 fL (9.5-12.2); NRBC Per 100 WBC 0 /100 WBCS (0.0-0.0); Platelet Count 458 X 10*3/uL (140-440); RBC 2.99 X 10*6/uL (4.10-5.20); RDW 18.8 % (11.5-14.5); WBC 8.61 X 10*3/uL (4.50-10.00)
[2022-06-09 09:10] LABS: African American GFR (CKD) 116.6 (60.0-200.0); Anion Gap 9.2 mmol/L (10.00-18.00); BUN/Creat Ratio 22.88 Ratio (12.00-20.00); Blood Urea Nitrogen 14.6 mg/dL (9.0-27.0); Calcium 8.3 mg/dL (8.7-10.3); Carbon Dioxide 26.6 mmol/L (20.0-27.5); Magnesium 2.2 mg/dL (1.5-2.4); Non-African American GFR(CKD) 100.6 (60.0-200.0); Potassium 4.2 mmol/L (3.5-5.5)
[2022-06-09 10:34] LABS: Basophils # (A) 0.06 X 10*3/uL (0.00-0.10); Basophils % (A) 0.7 %; Eosinophils # (A) 0 X 10*3/uL (0.04-0.35); Eosinophils % (A) 0 %; Immature Grans, Automated 0.8 %; Lymphocytes # (A) 1.94 X 10*3/uL (0.90-5.00); Lymphocytes % (A) 22.5 %; Monocytes % (A) 9.3 %; Neutrophils # (A) 5.74 X 10*3/uL (1.80-7.70); Neutrophils % (A) 66.7 %
[2022-06-09 12:25] LABS: Glucose,Whole Blood 83 mg/dL (70-110)
--- NOTE | 2022-06-09 13:14 | CDI ---
Documentation Clarification Form Date: 06/09/2022 12:34:43 PM From: Kylee Burnham Admit Date: 06/01/2022 12:48:00 PM Patient Name: Marielos Cardenas Visit Number: [id number] Discharge Date: ATTENTION: The Clinical Documentation Specialists (CDI) and [facility] Coding Staff appreciate your assistance in clarifying documentation. Please respond to the clarification below the line at the bottom and electronically sign. The CDI & [facility] Coding staff will review the response and follow-up if needed. Please note: Queries are made part of the Legal Health Record. If you have any questions, please contact the author of this message via ITS. Dr. Ken Forbes UTI is documented 05/29, H&P and patient has Urostomy, and patient performs catheterization PRN for faulty valve in urostomy. Additional clarification regarding the etiology of the UTI is requested. History/Risk Factors:56-year-old female presents to the ED from wound care with worsening bedsore. Medical history: DM, Pressure ulcer, asthma and recurrent UTIs Clinical Indicators: Urinalysis: 05/28 Appearance turbid; Leukocyte esterase Large; RBC 67; WBC >182 Urine culture: 05/28 Escherichia coli Tissue culture: 06/05 Escherichia coli 06/02 Nursing Note in Physical assessment Genitourinary comment: Patient has urostomy / and also self caths prn due to faulty valve in urostomy per patient. H&P, 05/29: It was noted by triage that her Urostomy bag had some thick purulent urine. Treatment: 05/28 Rocephin Ivp x 1; 05/28 06/08 Daptomycin Ivpb Q24H; 05/30 06/04 Aztreonam Ivpb Q8HR; 05/30 current Lactinex PO Daily; 06/07 current Ertapenem Ivpb Daily. Please clarify the etiology of the UTI, if known: [ ] Self Catheterization [ ] Urostomy [ ] Self Catheterization and Urostomy. [ ] UTI not related to Self-Catheterization / Urostomy [ ] Other condition, please specify [ ] Unable to determine (Template Last Revised: August 2020) Urostomy MTDD
--- NOTE | 2022-06-09 14:05 | P.PN ---
Subjective Progress Note Date: 06/09/22 CHIEF COMPLAINT: Sacral decubitus ulcer and right hip ulcer HISTORY OF PRESENT ILLNESS: Patient is postop day #4 status post debridement of sacral decubitus ulcer and right trochanteric ulcer. Her pain is controlled. She is lying in bed comfortably. She did have a low-grade temperature 100.5 yesterday. Currently afebrile. WBC 8.61 Hgb 8.8 platelets 458 potassium 4.2 sodium 138 creatinine 0.6 Patient seen and examined with Dr. fitzgerald PHYSICAL EXAM: VITAL SIGNS: Reviewed. GENERAL: Well-developed in no acute distress. HEENT: No sclera icterus. Extraocular movements grossly intact. Moist buccal mucosa. Head is atraumatic, normocephalic. ABDOMEN: Soft. Nondistended. Nontender. NEUROLOGIC: Alert and oriented. Cranial nerves II through XII grossly intact. ASSESSMENT: 1. Sacral decubitus ulcer status post debridement 2. Right trochanteric ulcer status post debridement 3. History of spina bifida PLAN: -Patient unable to have PICC line placed. Surgical service requested to place port for long-term antibiotics -Patient will have Mediport placed tomorrow with Dr. fitzgerald. -Nothing by mouth after midnight -Continue local wound care -Continue antibiotics per infectious disease -Continue supportive care -Continue offloading Physician Women Specialist note has been reviewed by physician. Signing provider agrees with the documented findings, assessment, and plan of care. Objective - Vital Signs Vital signs: Vital Signs Temp 98.7 F 06/09/22 13:00 Pulse 77 06/09/22 13:00 Resp 16 06/09/22 13:00 BP 116/75 06/09/22 13:00 Pulse Ox 98 06/09/22 13:00 FiO2 Intake & Output 06/08/22 06/09/22 06/09/22 18:59 06:59 18:59 Intake Total 600 Output Total 3560 1575 0 Balance -2960 -1575 0 Weight 127.006 kg Intake: Oral 600 Output: Urine 3400 1575 Stool 160 0 Other: Voiding Method Self-Catheterization Self-Catheterization Self-Catheterization - Labs CBC & Chem 7: 06/09/22 06:05 06/09/22 06:05 Labs: Abnormal Lab Results - Last 24 Hours (Table) 06/08/22 06/08/22 06/09/22 Range/Units 17:35 20:32 06:05 RBC 2.99 L (4.10-5.20) X 10*6/uL Hgb 8.8 L (12.0-15.0) g/dL Hct 28.5 L (37.2-46.3) % MCHC 30.9 L (32.0-37.0) g/dL RDW 18.8 H (11.5-14.5) % Plt Count 458 H (140-440) X 10*3/uL Immature Gran # 0.07 H (0.00-0.04) X 10*3/uL Eosinophils # 0 L (0.04-0.35) X 10*3/uL Anion Gap (10.00-18.00) mmol/L BUN/Creatinine Ratio (12.00-20.00) Ratio POC Glucose (mg/dL) 161 H 184 H (70-110) mg/dL Calcium (8.7-10.3) mg/dL 06/09/22 06/09/22 Range/Units 06:05 07:15 RBC (4.10-5.20) X 10*6/uL Hgb (12.0-15.0) g/dL Hct (37.2-46.3) % MCHC (32.0-37.0) g/dL RDW (11.5-14.5) % Plt Count (140-440) X 10*3/uL Immature Gran # (0.00-0.04) X 10*3/uL Eosinophils # (0.04-0.35) X 10*3/uL Anion Gap 9.20 L (10.00-18.00) mmol/L BUN/Creatinine Ratio 22.88 H (12.00-20.00) Ratio POC Glucose (mg/dL) 117 H (70-110) mg/dL Calcium 8.3 L (8.7-10.3) mg/dL Microbiology - Last 24 Hours (Table) 06/08/22 11:48 Blood Culture - Preliminary Blood No Growth after 24 hours 06/05/22 11:43 Anaerobic Culture - Preliminary Other - Other Anaerobic Gm Negative Bacilli Enterococcus faecalis
--- NOTE | 2022-06-09 14:16 | P.PN ---
Subjective This is a pleasant 56 years old female who presents with right hip wound pressure ulcer stage IV status post debridement yesterday 06/05 by surgery team Also with evidence of E. coli UTI Patient is followed closely by ID team and currently covered with broad-spectrum antibiotics ceftriaxone and IV daptomycin Patient lying in bed comfortable, denies any pain in her right foot wound, she has history of right lower quadrant urostomy and status post history of vasectomy However she still complaining from diarrhea, she stated that she has chronic diarrhea but now is worse since admission probably related to her infection and she is having at about 2-3 times per day, soft but today she has more little watery diarrhea therefore a sample was sent for C. diff. Patient however denies abdominal pain, no vomiting and she ate well Wound culture and sensitivity is pending, showing gram-negative bacilli 06/07/2022 Patient overall doing well, she denies significant pain at her right surgical wound, she still has diarrhea and rectal tube was placed, her blood culture came back positive today for enterococcus group D, patient is already is been seen by ID team and or the she was given ceftriaxone and IV daptomycin. Chest x-rays negative for acute processes. WBC is having elevated 11.7. Hemoglobin 10.2. Platelet count 448. Creatinine normal 0.7.Hemoglobin is stable at 10.2 Extremities on ceftriaxone and IV daptomycin with ID team and surgery team on the case 06/08/2022 Patient still feels generally weak and not well with some malaise, she still have fever of 100.5 Yesterday antibiotics were adjusted into daptomycin and IV Invanz and instead of Rocephin She has a rectal tube for her diarrhea, however her stool becoming gradually mor e formed and her rectal tube this morning was empty. Hemoglobin 8.7. WBC is 12.5. We will keep monitoring 06/09/2022 Patient with known new complaints Diarrhea improving Vitals stable Patient is planned for MediPort insertion tomorrow with surgery team Currently on Invanz and daptomycin Objective - Vital Signs Vital signs: Vital Signs Temp 98.7 F 06/09/22 13:00 Pulse 77 06/09/22 13:00 Resp 16 06/09/22 13:00 BP 116/75 06/09/22 13:00 Pulse Ox 98 06/09/22 13:00 FiO2 Intake & Output 06/08/22 06/09/22 06/09/22 18:59 06:59 18:59 Intake Total 600 Output Total 3560 1575 0 Balance -2960 -1575 0 Weight 127.006 kg Intake: Oral 600 Output: Urine 3400 1575 Stool 160 0 Other: Voiding Method Self-Catheterization Self-Catheterization Self-Catheterization - Exam GENERAL: The patient is alert and oriented x3, not in any acute distress. Well developed, well nourished. HEENT: Pupils are round and equally reacting to light. EOMI. No scleral icterus. No conjunctival pallor. Normocephalic, atraumatic. No pharyngeal erythema. No thyromegaly. CARDIOVASCULAR: S1 and S2 present. No murmurs, rubs, or gallops. PULMONARY: Chest is clear to auscultation, no wheezing or crackles. -ABDOMEN: Soft, nontender, nondistended, normoactive bowel sounds. No palpable organomegaly. Right lower quadrant urostomy MUSCULOSKELETAL: No joint swelling or deformity. -EXTREMITIES: No cyanosis, clubbing, or pedal edema. Right hip wound with a dressing and a Place, rest of exam is deferred to surgery and ID team NEUROLOGICAL: Gross neurological examination did not reveal any focal deficits. SKIN: No rashes. no petechiae. - Labs CBC & Chem 7: 06/09/22 06:05 06/09/22 06:05 Labs: Abnormal Lab Results - Last 24 Hours (Table) 06/08/22 06/08/22 06/09/22 Range/Units 17:35 20:32 06:05 RBC 2.99 L (4.10-5.20) X 10*6/uL Hgb 8.8 L (12.0-15.0) g/dL Hct 28.5 L (37.2-46.3) % MCHC 30.9 L (32.0-37.0) g/dL RDW 18.8 H (11.5-14.5) % Plt Count 458 H (140-440) X 10*3/uL Immature Gran # 0.07 H (0.00-0.04) X 10*3/uL Eosinophils # 0 L (0.04-0.35) X 10*3/uL Anion Gap (10.00-18.00) mmol/L BUN/Creatinine Ratio (12.00-20.00) Ratio POC Glucose (mg/dL) 161 H 184 H (70-110) mg/dL Calcium (8.7-10.3) mg/dL 06/09/22 06/09/22 Range/Units 06:05 07:15 RBC (4.10-5.20) X 10*6/uL Hgb (12.0-15.0) g/dL Hct (37.2-46.3) % MCHC (32.0-37.0) g/dL RDW (11.5-14.5) % Plt Count (140-440) X 10*3/uL Immature Gran # (0.00-0.04) X 10*3/uL Eosinophils # (0.04-0.35) X 10*3/uL Anion Gap 9.20 L (10.00-18.00) mmol/L BUN/Creatinine Ratio 22.88 H (12.00-20.00) Ratio POC Glucose (mg/dL) 117 H (70-110) mg/dL Calcium 8.3 L (8.7-10.3) mg/dL Microbiology - Last 24 Hours (Table) 06/05/22 11:43 Anaerobic Culture - Final Other - Other Anaerobic Gm Negative Bacilli Enterococcus faecalis 06/08/22 11:48 Blood Culture - Preliminary Blood No Growth after 24 hours Assessment and Plan Assessment: Right hip wound pressure ulcer, stage IV status post debridement 06/05 with surrounding and soft tissue infection and cellulitis E coli acute urinary tract infection Group D enterococcus bacteremia Chronic anemia with hemoglobin stable History of asthma Diabetes mellitus History of sleep apnea Plan: Continue with IV antibiotic as per ID team, he was ertapenem and IV daptomycin Monitor hemoglobin Infectious disease and surgery team consult Labs and medication were reviewed.. Continue same treatment. Continue with symptomatic treatment. Resume home medication. Monitor labs and vitals. DVT and GI prophylaxis. Further recommendations as per clinical course of the patient DVT prophylaxis: Subcutaneous heparin GI Prophylaxis: Pepcid PT/OT: Pending Prognosis is guarded
[2022-06-09] MEDS: SODIUM CHLORIDE 0.9% 1,000 ML IV SCH (16:37)
[2022-06-09 17:20] LABS: Glucose,Whole Blood 93 mg/dL (70-110)
--- NOTE | 2022-06-09 17:40 | P.PN ---
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 Patient is status post surgical debridement of her wound completed on 06/05/2022 On today's evaluation that is 06/09/2022, the patient is afebrile today, the patient is breathing comfortably on room air, the patient denies chest pain shortness of breath or cough , the patient denies abdominal pain diarrhea has resolved and she seems to have a problem with retention of the fecal management system Objective - Vital Signs Vital signs: Vital Signs Temp 98.9 F 06/09/22 04:44 Pulse 74 06/09/22 08:40 Resp 16 06/09/22 08:40 BP 102/66 06/09/22 04:44 Pulse Ox 95 06/09/22 04:44 FiO2 Intake & Output 06/08/22 06/09/22 06/09/22 18:59 06:59 18:59 Intake Total 600 Output Total 3560 1575 0 Balance -2960 -1575 0 Weight 127.006 kg Intake: Oral 600 Output: Urine 3400 1575 Stool 160 0 Other: Voiding Method Self-Catheterization Self-Catheterization Self-Catheterization - Exam GENERAL DESCRIPTION: Middle-aged female lying in bed in no distress RESPIRATORY SYSTEM: Unlabored breathing , decreased breath sounds at bases HEART: S1 S2 regular rate and rhythm , ABDOMEN: Soft , no tenderness EXTREMITIES: Right hip/gluteal wound as well as sacral wound are currently dressed - Labs CBC & Chem 7: 06/09/22 06:05 06/09/22 06:05 Labs: Abnormal Lab Results - Last 24 Hours (Table) 06/08/22 06/08/22 06/09/22 Range/Units 17:35 20:32 06:05 RBC 2.99 L (4.10-5.20) X 10*6/uL Hgb 8.8 L (12.0-15.0) g/dL Hct 28.5 L (37.2-46.3) % MCHC 30.9 L (32.0-37.0) g/dL RDW 18.8 H (11.5-14.5) % Plt Count 458 H (140-440) X 10*3/uL Immature Gran # 0.07 H (0.00-0.04) X 10*3/uL Eosinophils # 0 L (0.04-0.35) X 10*3/uL Anion Gap (10.00-18.00) mmol/L BUN/Creatinine Ratio (12.00-20.00) Ratio POC Glucose (mg/dL) 161 H 184 H (70-110) mg/dL Calcium (8.7-10.3) mg/dL 06/09/22 06/09/22 Range/Units 06:05 07:15 RBC (4.10-5.20) X 10*6/uL Hgb (12.0-15.0) g/dL Hct (37.2-46.3) % MCHC (32.0-37.0) g/dL RDW (11.5-14.5) % Plt Count (140-440) X 10*3/uL Immature Gran # (0.00-0.04) X 10*3/uL Eosinophils # (0.04-0.35) X 10*3/uL Anion Gap 9.20 L (10.00-18.00) mmol/L BUN/Creatinine Ratio 22.88 H (12.00-20.00) Ratio POC Glucose (mg/dL) 117 H (70-110) mg/dL Calcium 8.3 L (8.7-10.3) mg/dL Microbiology - Last 24 Hours (Table) 06/05/22 11:43 Anaerobic Culture - Preliminary Other - Other Anaerobic Gm Negative Bacilli Enterococcus faecalis Assessment and Plan (1) Unspecified open wound, right hip, subsequent encounter Current Visit: Yes Status: Acute Code(s): S71.001D - UNSPECIFIED OPEN WOUND, RIGHT HIP, SUBSEQUENT ENCOUNTER SNOMED Code(s): 09060962937515726 (2) UTI (urinary tract infection) Current Visit: Yes Status: Acute Code(s): N39.0 - URINARY TRACT INFECTION, SITE NOT SPECIFIED SNOMED Code(s): 16498546 Plan: 1patient with a nonhealing wound to the right hip area which seems to be deep tunneling and did have surrounding inflammatory changes and maceration concerning for wound infection possibly related to gram-positive skin eduarda however gram-negative infection not entirely excluded. 2patient did have a positive UA concerning for a gram-negative enteric pathogen with urine cultures currently growing E. coli that is sensitive pathogen antibiotic 3patient with multiple antibiotic allergies that would limit the number of antibiotics safe to use. 4patient did have a stage III right gluteal pressure ulcer local care status post debridement and local care will be switched over to wound VAC 5patient did have a stage IV sacral pressure ulcer with the bone palpable status post debridement, local wound care will be switched over to wound VAC 6 local cultures are growing drug-resistant Enterobacter in addition to E. coli and enterococcus which is penicillin sensitive we will continue the patient on ertapenem 7-patient did have a low-grade fever on 06/08/2022 blood culture has been repeated if negative by tomorrow morning patient will get a Mckeon catheter as the patient seemed to have problems with PICC line placement in the past Patient did have multiple questions and those were answered in Layman terms
[2022-06-09] MEDS: LOPERAMIDE 2 MG CAP PO PRN (17:45)
[2022-06-09] MEDS: METOPROLOL SUCCINATE (ER) 25 MG TAB.ER.24H PO SCH (20:22)
[2022-06-09 20:57] LABS: Glucose,Whole Blood 123 mg/dL (70-110)
[2022-06-09] MEDS: ERTAPENEM 1 GM in SODIUM CHLORIDE 0.9% 50 ML IVPB SCH (22:58)
[2022-06-10] MEDS: ACETAMINOPHEN TAB 325 MG TAB PO PRN ×2 (05:29→20:44)
[2022-06-10 07:19] LABS: Glucose,Whole Blood 93 mg/dL (70-110)
[2022-06-10] MEDS: INSULIN ASPART (NovoLOG) 100 UNIT/ML VIAL SQ SCH ×4 (08:24→20:31)
[2022-06-10] MEDS: HEPARIN SODIUM,PORCINE/PF 5,000 UNIT/0.5 ML SYRINGE SQ SCH ×2 (09:01→20:44)
[2022-06-10] MEDS: MAGNESIUM OXIDE 400 MG TAB PO SCH ×2 (09:13→20:44)
[2022-06-10] MEDS: LORATADINE 10 MG TAB PO SCH (09:14)
[2022-06-10] MEDS: allopurinoL 300 MG TAB PO SCH (09:14)
[2022-06-10] MEDS: TORSEMIDE 20 MG TAB PO SCH ×2 (09:14→20:44)
[2022-06-10] MEDS: PANTOPRAZOLE 40 MG TABLET PO SCH (09:14)
[2022-06-10] MEDS: FAMOTIDINE 20 MG TAB PO SCH ×2 (09:14→20:44)
[2022-06-10] MEDS: POTASSIUM CHLORIDE ER 20 MEQ TAB.ER PO SCH (09:16)
[2022-06-10] MEDS: NON FORMULARY DRUG (Methenamine Hippurate [Methenamine Hippurate] 1 GM Tablet) PO SCH ×2 (09:17→20:48)
[2022-06-10] MEDS: LACTOBACILLUS ACIDOPH & BULGAR 1 EACH PACKET PO SCH (09:17)
[2022-06-10 11:25] LABS: Glucose,Whole Blood 83 mg/dL (70-110)
[2022-06-10] MEDS ORDERED: IV FLUID CONTINUATION 600 ML IV ONE (12:40)
[2022-06-10] MEDS ORDERED: ONDANSETRON 4 MG/2 ML VIAL ONE (12:52)
[2022-06-10] MEDS ORDERED: ONDANSETRON 4 MG/2 ML VIAL IVP ONE (12:53)
[2022-06-10] MEDS ORDERED: HEPARIN SODIUM,PORCINE 100 UNIT/ML 5 ML VIAL IV ONE ×2 (14:02→14:21)
[2022-06-10] MEDS ORDERED: BUPIVACAIN-EPI 0.25%-1:200,000 30 ML VIAL SQ ONE ×2 (14:03→14:21)
[2022-06-10] MEDS ORDERED: MIDAZOLAM 2 MG/2 ML VIAL ONE (14:05)
[2022-06-10] MEDS ORDERED: PHENYLEPHRINE-0.9% NACL SYG 1,000 MCG/10 ML SYRINGE ONE (14:05)
[2022-06-10] MEDS ORDERED: PROPOFOL 10 MG/ML 20 ML VIAL IV ONE (14:05)
[2022-06-10] MEDS ORDERED: fentaNYL (PF) 50 MCG/ML 2 ML AMP ONE (14:05)
--- NOTE | 2022-06-10 14:52 | P.PN ---
Subjective This is a pleasant 56 years old female who presents with right hip wound pressure ulcer stage IV status post debridement yesterday 06/05 by surgery team Also with evidence of E. coli UTI Patient is followed closely by ID team and currently covered with broad-spectrum antibiotics ceftriaxone and IV daptomycin Patient lying in bed comfortable, denies any pain in her right foot wound, she has history of right lower quadrant urostomy and status post history of vasectomy However she still complaining from diarrhea, she stated that she has chronic diarrhea but now is worse since admission probably related to her infection and she is having at about 2-3 times per day, soft but today she has more little watery diarrhea therefore a sample was sent for C. diff. Patient however denies abdominal pain, no vomiting and she ate well Wound culture and sensitivity is pending, showing gram-negative bacilli 06/07/2022 Patient overall doing well, she denies significant pain at her right surgical wound, she still has diarrhea and rectal tube was placed, her blood culture came back positive today for enterococcus group D, patient is already is been seen by ID team and or the she was given ceftriaxone and IV daptomycin. Chest x-rays negative for acute processes. WBC is having elevated 11.7. Hemoglobin 10.2. Platelet count 448. Creatinine normal 0.7.Hemoglobin is stable at 10.2 Extremities on ceftriaxone and IV daptomycin with ID team and surgery team on the case 06/08/2022 Patient still feels generally weak and not well with some malaise, she still have fever of 100.5 Yesterday antibiotics were adjusted into daptomycin and IV Invanz and instead of Rocephin She has a rectal tube for her diarrhea, however her stool becoming gradually mor e formed and her rectal tube this morning was empty. Hemoglobin 8.7. WBC is 12.5. We will keep monitoring 06/09/2022 Patient with known new complaints Diarrhea improving Vitals stable Patient is planned for MediPort insertion tomorrow with surgery team Currently on Invanz and daptomycin 06/10/2022 Patient has fever 2 days ago currently subsiding Clinically she is improving gradually and slowly, she is fully awake and oriented, not in distress. No more diarrhea and rectal tube was discontinued. Is going for MediPort placement today for IV antibiotic upon discharge Discussed with staff, patient pending approval from [facility]. Once patient will be cleared by surgery and ID team she can be discharged Possible soon Objective - Vital Signs Vital signs: Vital Signs Temp 98.9 F 06/10/22 13:00 Pulse 78 06/10/22 13:00 Resp 16 06/10/22 13:00 BP 104/62 06/10/22 13:00 Pulse Ox 97 06/10/22 13:00 FiO2 Intake & Output 06/09/22 06/10/22 06/10/22 18:59 06:59 18:59 Intake Total 240 240 100 Output Total 1200 1500 5 Balance -960 -1260 95 Weight 127.006 kg Intake: IV 100 Oral 240 240 Output: Urine 1200 1500 Stool 0 0 Estimated Blood Loss 5 Other: Voiding Method Self-Catheterization Self-Catheterization Self-Catheterization # Bowel Movements 2 - Exam GENERAL: The patient is alert and oriented x3, not in any acute distress. Well developed, well nourished. HEENT: Pupils are round and equally reacting to light. EOMI. No scleral icterus. No conjunctival pallor. Normocephalic, atraumatic. No pharyngeal erythema. No thyromegaly. CARDIOVASCULAR: S1 and S2 present. No murmurs, rubs, or gallops. PULMONARY: Chest is clear to auscultation, no wheezing or crackles. -ABDOMEN: Soft, nontender, nondistended, normoactive bowel sounds. No palpable organomegaly. Right lower quadrant urostomy MUSCULOSKELETAL: No joint swelling or deformity. -EXTREMITIES: No cyanosis, clubbing, or pedal edema. Right hip wound with a dressing and a Place, rest of exam is deferred to surgery and ID team NEUROLOGICAL: Gross neurological examination did not reveal any focal deficits. SKIN: No rashes. no petechiae. - Labs CBC & Chem 7: 06/09/22 06:05 06/09/22 06:05 Labs: Abnormal Lab Results - Last 24 Hours (Table) 06/09/22 Range/Units 20:56 POC Glucose (mg/dL) 123 H (70-110) mg/dL Microbiology - Last 24 Hours (Table) 06/08/22 11:40 Blood Culture - Preliminary Blood No Growth after 48 hours 06/08/22 11:48 Blood Culture - Preliminary Blood No Growth after 48 hours 06/05/22 11:43 Anaerobic Culture - Final Other - Other Anaerobic Gm Negative Bacilli Enterococcus faecalis Assessment and Plan Assessment: Right hip wound pressure ulcer, stage IV status post debridement 06/05 with surrounding and soft tissue infection and cellulitis E coli acute urinary tract infection Group D enterococcus bacteremia Chronic anemia with hemoglobin stable History of asthma Diabetes mellitus History of sleep apnea Plan: Continue with IV antibiotic as per ID team, he was ertapenem . daptomycin was discontinued Monitor hemoglobin outpatient Infectious disease and surgery team consult Patient is getting for Mediport placement for outpatient IV antibiotic, after that she become considered for discharge was cleared by ID and surgery team Labs and medication were reviewed.. Continue same treatment. Continue with symptomatic treatment. Resume home medication. Monitor labs and vitals. DVT and GI prophylaxis. Further recommendations as per clinical course of the patient DVT prophylaxis: Subcutaneous heparin GI Prophylaxis: Pepcid PT/OT: Possible regions Prognosis is guarded
--- NOTE | 2022-06-10 15:00 | P.OP ---
Date of Procedure: 06/10/22 Preoperative Diagnosis: UTI He was ulcer Postoperative Diagnosis: UTI Decubitus ulcer Procedure(s) Performed: Insertion of right subclavian Port-A-Cath Anesthesia: LAURA Surgeon: Lewis Alvares Estimated Blood Loss (ml): 5 Pathology: none sent Condition: stable Disposition: PACU Description of Procedure: MThe patient was placed on the operating table in the supine position. The patient received IV sedation. The patient's chest was prepped and draped in the usual sterile fashion. A roll had been placed between the shoulder blades in a longitudinal fashion. After prepping and draping the skin was anesthetized 1% local Xylocaine. And then using the Seldinger technique the subclavian vein was cannulated. A wire was placed into the vein and fluoroscopy position the wire at the atrial caval junction. Next the dilator sheath was placed over top the wire and the wire was withdrawn. The catheter was positioned at the atriocaval position. The catheter was placed through the sheath after the dilator was withdrawn. The sheath was then withdrawn. Position of the catheter was confirmed with fluoroscopy. The Port-A-Cath was connected to the catheter. The Port-A-Cath was flushed with saline and then heparinized saline. The skin was closed interrupted 3-0 Monocryl suture. Dermabond was applied. Patient tolerated procedure well and was sent to recovery room stable condition.
--- NOTE | 2022-06-10 15:02 | FL ---
Fluoroscopy INDICATION: Pain FINDINGS: Fluoroscopy time: 7 seconds. Images obtained: 1. IMPRESSIONS: 1. Documentation of fluoroscopy.
[2022-06-10 15:06] LABS: Glucose,Whole Blood 74 mg/dL (70-110)
--- NOTE | 2022-06-10 15:14 | XR ---
EXAMINATION TYPE: XR chest 1V portable DATE OF EXAM: 06/10/2022 COMPARISON: 06/02/2022 INDICATION: Post Mediport placement TECHNIQUE: Single frontal view of the chest is obtained. FINDINGS: The heart size is normal. The pulmonary vasculature is normal. No suspicious focal consolidation is evident. Left central venous catheter is present with the tip in the superior vena cava region. Port is present on the right within the proximal superior vena cava r egion. No pneumothorax is evident IMPRESSION: 1. No acute pulmonary process. 2. Catheters discussed above
[2022-06-10 17:30] LABS: Glucose,Whole Blood 91 mg/dL (70-110)
[2022-06-10] MEDS: SODIUM CHLORIDE 0.9% 1,000 ML IV SCH (19:53)
[2022-06-10 20:03] LABS: Glucose,Whole Blood 145 mg/dL (70-110)
[2022-06-10] MEDS: METOPROLOL SUCCINATE (ER) 25 MG TAB.ER.24H PO SCH (20:44)
[2022-06-10] MEDS: ERTAPENEM 1 GM in SODIUM CHLORIDE 0.9% 50 ML IVPB SCH (20:45)
--- NOTE | 2022-06-10 22:55 | P.PN ---
Subjective Progress Note Date: 06/10/22 Principal diagnosis: Urinary tract infection and infected right hip wound Patient is a 56 year female past medical history significant for diabetes mellitus recurrent UTI and chronic nonhealing wound to the right hip area admitted to the hospital concerning for wound infection any UTI in this patient had multiple antibiotic ALLERGIES. Patient is status post surgical debridement of her wound completed on 06/05/2022 On today's evaluation that is 06/10/2022, the patient remains to be afebrile, the patient is breathing comfortably on room air, the patient denies chest pain shortness of breath or cough , the patient denies abdominal pain, however the patient still complaining of diarrhea with the episode last evening Objective - Vital Signs Vital signs: Vital Signs Temp 98 F 06/10/22 12:48 Pulse 78 06/10/22 12:48 Resp 16 06/10/22 12:48 BP 102/65 06/10/22 12:48 Pulse Ox 97 06/10/22 12:48 FiO2 Intake & Output 06/09/22 06/10/22 06/10/22 18:59 06:59 18:59 Intake Total 240 240 Output Total 1200 1500 Balance -960 -1260 Weight 127.006 kg Intake: Oral 240 240 Output: Urine 1200 1500 Stool 0 0 Other: Voiding Method Self-Catheterization Self-Catheterization Self-Catheterization # Bowel Movements 2 - Exam GENERAL DESCRIPTION: Middle-aged female lying in bed in no distress RESPIRATORY SYSTEM: Unlabored breathing , decreased breath sounds at bases HEART: S1 S2 regular rate and rhythm , ABDOMEN: Soft , no tenderness EXTREMITIES: Right hip/gluteal wound as well as sacral wound are currently dressed - Labs CBC & Chem 7: 06/09/22 06:05 06/09/22 06:05 Labs: Abnormal Lab Results - Last 24 Hours (Table) 06/09/22 Range/Units 20:56 POC Glucose (mg/dL) 123 H (70-110) mg/dL Microbiology - Last 24 Hours (Table) 06/08/22 11:40 Blood Culture - Preliminary Blood No Growth after 24 hours 06/05/22 11:43 Anaerobic Culture - Final Other - Other Anaerobic Gm Negative Bacilli Enterococcus faecalis 06/08/22 11:48 Blood Culture - Preliminary Blood No Growth after 24 hours Assessment and Plan (1) Unspecified open wound, right hip, subsequent encounter Current Visit: Yes Status: Acute Code(s): S71.001D - UNSPECIFIED OPEN WOUND, RIGHT HIP, SUBSEQUENT ENCOUNTER SNOMED Code(s): 52783067601977317 (2) UTI (urinary tract infection) Current Visit: Yes Status: Acute Code(s): N39.0 - URINARY TRACT INFECTION, SITE NOT SPECIFIED SNOMED Code(s): 26208713 Plan: 1patient with a nonhealing wound to the right hip area which seems to be deep tunneling and did have surrounding inflammatory changes and maceration concerning for wound infection possibly related to gram-positive skin eduarda however gram-negative infection not entirely excluded. 2patient did have a positive UA concerning for a gram-negative enteric pathogen with urine cultures currently growing E. coli that is sensitive pathogen antibiotic 3patient with multiple antibiotic allergies that would limit the number of antibiotics safe to use. 4patient did have a stage III right gluteal pressure ulcer local care status post debridement and local care will be switched over to wound VAC 5patient did have a stage IV sacral pressure ulcer with the bone palpable status post debridement, local wound care will be switched over to wound VAC 6 local cultures are growing drug-resistant Enterobacter in addition to E. coli and enterococcus which is penicillin sensitive we will continue the patient on ertapenem 7-patient did have a low-grade fever on 06/08/2022 blood culture has been re peated and they remains to be negative patient is currently waiting for Mckeon or Port-A-Cath placement per surgery this afternoon Time with Patient: Less than 30
[2022-06-11] MEDS: ACETAMINOPHEN TAB 325 MG TAB PO PRN (05:13)
[2022-06-11 07:14] LABS: Glucose,Whole Blood 113 mg/dL (70-110)
[2022-06-11] MEDS: FAMOTIDINE 20 MG TAB PO SCH ×2 (09:28→21:17)
[2022-06-11] MEDS: PANTOPRAZOLE 40 MG TABLET PO SCH (09:28)
[2022-06-11] MEDS: LACTOBACILLUS ACIDOPH & BULGAR 1 EACH PACKET PO SCH (09:29)
[2022-06-11] MEDS: LORATADINE 10 MG TAB PO SCH (09:29)
[2022-06-11] MEDS: MAGNESIUM OXIDE 400 MG TAB PO SCH ×2 (09:29→21:17)
[2022-06-11] MEDS: POTASSIUM CHLORIDE ER 20 MEQ TAB.ER PO SCH (09:29)
[2022-06-11] MEDS: NON FORMULARY DRUG (Methenamine Hippurate [Methenamine Hippurate] 1 GM Tablet) PO SCH ×2 (09:30→21:17)
[2022-06-11] MEDS: allopurinoL 300 MG TAB PO SCH (09:30)
[2022-06-11] MEDS: TORSEMIDE 20 MG TAB PO SCH ×2 (09:30→21:17)
[2022-06-11] MEDS: INSULIN ASPART (NovoLOG) 100 UNIT/ML VIAL SQ SCH ×4 (09:30→21:15)
[2022-06-11] MEDS: HEPARIN SODIUM,PORCINE/PF 5,000 UNIT/0.5 ML SYRINGE SQ SCH ×2 (09:30→21:17)
[2022-06-11 12:48] LABS: Glucose,Whole Blood 119 mg/dL (70-110)
--- NOTE | 2022-06-11 14:13 | P.PN ---
Progress Note - Text Progress Note Date: 06/11/22 patient resting In her bed. Her Port-A-Cath site is clean. The Port-A-Cath can be accessed whenever needed.
--- NOTE | 2022-06-11 14:50 | P.PN ---
Subjective Progress Note Date: 06/11/22 Principal diagnosis: Urinary tract infection and infected right hip wound Patient is a 56 year female past medical history significant for diabetes mellitus recurrent UTI and chronic nonhealing wound to the right hip area admitted to the hospital concerning for wound infection any UTI in this patient had multiple antibiotic ALLERGIES. Patient is status post surgical debridement of her wound completed on 06/05/2022 On today's evaluation that is 06/11/2022, the patient continues to be afebrile, the patient is breathing comfortably on room air, the patient denies chest pain shortness of breath or cough , the patient denies abdominal pain, diarrhea has slowed down pain to the hip and sacral wound is currently controlled Objective - Vital Signs Vital signs: Vital Signs Temp 97.9 F 06/11/22 11:20 Pulse 81 06/11/22 11:20 Resp 16 06/11/22 11:20 BP 108/71 06/11/22 11:20 Pulse Ox 99 06/11/22 11:20 FiO2 Intake & Output 06/10/22 06/11/22 06/11/22 18:59 06:59 18:59 Intake Total 640 480 Output Total 112 170 2254 Balance -215 80 -1000 Weight 127.006 kg Intake: IV 400 Intake, IV Titration 240 Amount Sodium Chloride 0.9% 1, 240 000 ml @ 20 mls/hr IV . Q24H [facility] Rx#:[id number] Oral 480 Output: Urine 220 059 1926 Estimated Blood Loss 5 Other: Voiding Method Self-Catheterization Self-Catheterization Self-Catheterization - Exam GENERAL DESCRIPTION: Middle-aged female lying in bed in no distress RESPIRATORY SYSTEM: Unlabored breathing , decreased breath sounds at bases HEART: S1 S2 regular rate and rhythm , ABDOMEN: Soft , no tenderness EXTREMITIES: Right hip/gluteal wound as well as sacral wound are currently dressed - Labs CBC & Chem 7: 06/09/22 06:05 06/09/22 06:05 Labs: Abnormal Lab Results - Last 24 Hours (Table) 06/10/22 06/11/22 06/11/22 Range/Units 20:01 07:09 12:47 POC Glucose (mg/dL) 145 H 113 H 119 H (70-110) mg/dL Microbiology - Last 24 Hours (Table) 06/08/22 11:40 Blood Culture - Preliminary Blood No Growth after 72 hours 06/08/22 11:48 Blood Culture - Preliminary Blood No Growth after 72 hours Assessment and Plan (1) Unspecified open wound, right hip, subsequent encounter Current Visit: Yes Status: Acute Code(s): S71.001D - UNSPECIFIED OPEN WOUND, RIGHT HIP, SUBSEQUENT ENCOUNTER SNOMED Code(s): 68569398670736432 (2) UTI (urinary tract infection) Current Visit: Yes Status: Acute Code(s): N39.0 - URINARY TRACT INFECTION, SITE NOT SPECIFIED SNOMED Code(s): 66078763 Plan: 1patient with a nonhealing wound to the right hip area which seems to be deep tunneling and did have surrounding inflammatory changes and maceration concerning for wound infection possibly related to gram-positive skin eduarda however gram-negative infection not entirely excluded. 2patient did have a positive UA concerning for a gram-negative enteric pathogen with urine cultures currently growing E. coli that is sensitive pathogen antibiotic 3patient with multiple antibiotic allergies that would limit the number of antibiotics safe to use. 4patient did have a stage III right gluteal pressure ulcer local care status post debridement and local care to continue with wound VAC 5patient did have a stage IV sacral pressure ulcer with the bone palpable status post debridement, local wound care to continue with wound VAC 6 local cultures are growing drug-resistant Enterobacter in addition to E. coli and enterococcus which is penicillin sensitive we will continue the patient on ertapenem 6 weeks to finish a course of therapy and close outpatient follow-up Time with Patient: Less than 30
[2022-06-11] MEDS: SODIUM CHLORIDE 0.9% 1,000 ML IV SCH (15:11)
--- NOTE | 2022-06-11 16:38 | PN ---
PROGRESS NOTE DATE OF SERVICE: 06/11/2022 SUBJECTIVE: This 56-year-old woman, who was admitted with significant sacral ulcers and debridement, and the patient also had a wound VAC placement. ECF rehab is being planned at this time. No chest pain. No palpitations. No fever. OBJECTIVE: VITAL SIGNS: Pulse is 81, blood pressure n, respirations 16. CHEST: Clear to auscultation. CARDIOVASCULAR: S1, S2. ABDOMEN: Soft. NERVOUS SYSTEM: n LABORATORY DATA: Reviewed. ASSESSMENT: 1. Right sacral wound ulcer, stage IV, status post debridement. 2. Escherichia coli urinary tract infection. 3. Group D enterococcal bacteremia. 4. Chronic anemia with hemoglobin stable. RECOMMENDATIONS: I recommend to continue current medications and symptomatic treatment. Continue with antibiotics. Otherwise, possible ECF rehab. Closely follow with Infectious Disease. Prognosis guarded. Further recommendations to follow. DIETER / ZENN: [id number] / [id number]
[2022-06-11 17:13] LABS: Glucose,Whole Blood 106 mg/dL (70-110)
[2022-06-11 20:30] LABS: Glucose,Whole Blood 145 mg/dL (70-110)
[2022-06-11] MEDS: METOPROLOL SUCCINATE (ER) 25 MG TAB.ER.24H PO SCH (21:17)
[2022-06-11] MEDS: ERTAPENEM 1 GM in SODIUM CHLORIDE 0.9% 50 ML IVPB SCH (21:51)
--- NOTE | 2022-06-12 06:09 | P.CONS ---
History of Present Illness - Chief Complaint Medical debility - History of Present Illness I had the opportunity see patient for inpatient rehab consultation today. Patient admitted to Dr. Mishra May 28 diabetic ulcers sacrum and right hip. Seen by Dr. Polo for this. Note has been following in wound clinic. Also seen by Dr. Rios for the wound who did perform debridement June 05. Seen by Dr. Goodman for right hip but at this time appears satisfactory. Diagnostic tests chest x-ray negative. CT right hip reviewed. PT reports two-person moderate assistance for bed mobility. OT reports independent for feeding, supervision for grooming and upper dressing, moderate assistance for lower dressing, maximal assistance for bathing and total assistance for toileting. Previous functional history as elicited from patient: 56-year-old left-handed female who is single lives in [facility] alone. Doesn't have an aide assist with bath and some dressing. Patient otherwise independent with own cooking, laundry. Has a prior and standard wheelchair. Also has bilateral boot with double upright AFO and a forearm crutch. Review of Systems Review of systems: Skin: Decubitus ulcer sacrum and right hip which were being treated and wound clinic. ENT: Denies sneezes or discharge. Eyes: Denies discharge or photophobia. Cardiac: Denies chest pain or palpitation. Pulmonary: Denies cough or shortness of breath. Breast: Denies discharge or lumps. Gastrointestinal: Denies nausea, emesis, constipation, diarrhea. Genitourinary: Denies discharge or frequency. Musculoskeletal: Denies muscle or bone aches. Edema lower legs. Neurologic: Long-standing lower extremity weakness. Endocrine: Denies shakes or sweats. Oncology: Denies cancers. Dermatologic: Denies rash, itching, pruritus. ALLERGY/immunology: Denies sneezes, rashes. Past Medical History Past Medical History: Asthma, Diabetes Mellitus, GERD/Reflux, Musculoskeletal Disorder, Neurologic Disorder, Pneumonia, Renal Disease, Sleep Apnea/CPAP/BIPAP Additional Past Medical History / Comment(s): 08-09-15 admitted with cellulitis of external nose. other pst medical hx includes: hx. 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, MRSA Year Discovered:: 04/23/22 MRSA; 01/07/15 ESBL MDRO Source:: Urine MRSA; Leg- ESBL Past Surgical History: Back Surgery, Bowel Resection, Orthopedic Surgery Additional Past Surgical History / Comment(s): multiple surgeries for hydrocephalus, urostomy x 2, multiple hip,leg, foot surgeries, ankles fused, [facility] shunt, pt stated back sx was to remove spina bifida growth, egd Past Anesthesia/Blood Transfusion Reactions: No Reported Reaction Past Psychological History: No Psychological Hx Reported Additional Psychological History / Comment(s): pt lives alone at [facility],gets around by w/ able to stand and pivot and drives. does have visiting nurses wed-,wednesday. Smoking Status: Never smoker Past Alcohol Use History: None Reported Past Drug Use History: None Reported - Past Family History Father Family Medical History: Hypertension Additional Family Medical History / Comment(s): gout, heart murmur, rheumatic fever as child, tia Mother Family Medical History: Cancer, Hypertension Additional Family Medical History / Comment(s): interstitial cystitis, breast cancer x2, diet controlled diabetic, hiatal hernia Medications and Allergies Home Medications Medication Instructions Recorded Confirmed Type Cetirizine HCl [Zyrtec] 5 mg PO DAILY 10/04/14 05/28/22 History Liraglutide [Victoza 2-Raul] 1.8 mg SQ DAILY 10/04/14 05/28/22 History Omeprazole [PriLOSEC] 20 mg PO DAILY 10/04/14 05/28/22 History allopurinoL [Zyloprim] 300 mg PO DAILY 10/04/14 05/28/22 History Glucosamine/Chondr Choi A Sod [Osteo 1 tab PO DAILY 08/09/15 05/28/22 History Bi-Flex Caplet] Loperamide [Imodium] 1 - 2 mg PO QID PRN 08/09/15 05/28/22 History Metoprolol Succinate [Toprol XL] 25 mg PO HS 08/09/15 05/28/22 History Ammonium Lactate Cream [Lac-Hydrin 1 applic TOPICAL BID 04/23/22 05/28/22 History 12% Cream] Cranberry Fruit Extract [Cranberry] 500 mg PO DAILY 04/23/22 05/28/22 History Fish Oil/Dha/Epa [Fish Oil 1,200 1 cap PO DAILY 04/23/22 05/28/22 History mg Fish Oil] Lactobacillus Acidophilus 1 tab PO DAILY 04/23/22 05/28/22 History [Acidophilus] Methenamine Hippurate 1 gm PO BID 04/23/22 05/28/22 History Multivit with Calcium,Iron,Min 1 tab PO DAILY 04/23/22 05/28/22 History [Women's Multivitamin] Nystatin 100,000Unit/gm Cream 1 applic TOPICAL BID 04/23/22 05/28/22 History [Mycostatin Cream] Acetaminophen Tab [Tylenol] 650 mg PO Q6HR PRN tab 04/30/22 05/28/22 Rx Magnesium Oxide [Mag-Ox] 400 mg PO BID 30 Days #60 tab 04/30/22 05/28/22 Rx Potassium Chloride [Klor-Con M20] 40 meq PO DAILY #0 04/30/22 05/28/22 Rx Torsemide [Demadex] 20 mg PO BID 30 Days #60 tab 04/30/22 05/28/22 Rx Insulin Degludec [Tresiba 10 - 20 units SQ HS 05/28/22 05/28/22 History Flextouch U-100 Pen] Ertapenem [INVanz] 1 gm IVPB Q24H #42 each 06/11/22 Rx Allergies Allergy/AdvReac Type Severity Reaction Status Date / Time amoxicillin trihydrate Allergy Rash/Hives Verified 05/28/22 17:24 [From Augmentin] banana Allergy Unknown Verified 05/28/22 17:24 chestnut Allergy Unknown Verified 05/28/22 17:24 ciprofloxacin [From Cipro] Allergy Rash/Hives Verified 05/28/22 17:24 ciprofloxacin HCl Allergy Rash/Hives Verified 05/28/22 17:24 [From Cipro] kiwi Allergy Unknown Verified 05/28/22 17:24 Latex, Natural Rubber Allergy Anaphylaxis Verified 05/28/22 17:24 methylprednisolone Allergy Rash/Hives Verified 05/28/22 17:24 [From Solu-Medrol] nitrofurantoin Allergy Rash/Hives Verified 05/28/22 17:24 macrocrystalline [From Macrodantin] potassium clavulanate Allergy Rash/Hives Verified 05/28/22 17:24 [From Augmentin] Sulfa (Sulfonamide Allergy Rash/Hives Verified 05/28/22 17:24 Antibiotics) vancomycin Allergy Anaphylaxis Verified 05/28/22 17:24 Beef Containing Products AdvReac Diarrhea Verified 05/28/22 17:24 [Beef] sucralose AdvReac Diarrhea Verified 05/28/22 17:24 [From Splenda (sucralose)] callagen Allergy Rash/Hives Uncoded 05/28/22 17:24 Physical Exam Vitals: Vital Signs Temp Pulse Resp BP Pulse Ox 06/12/22 03:43 97.5 F L 76 18 102/62 93 L 06/11/22 19:15 99.1 F 84 18 99/62 91 L 06/11/22 11:20 97.9 F 81 16 108/71 99 Intake and Output 06/11/22 06/11/22 06/12/22 14:59 22:59 06:59 Intake Total 1000 Output Total 1000 1200 Balance -1000 -200 Intake: Oral 1000 Output: Urine 1000 1200 Other: Voiding Method Self-Catheterization Self-Catheterization # Bowel Movements 1 Skin: Dressed wound sacrum and right hip. General: Medium build and comfortable appearance. Head: Normocephalic, atraumatic. Eyes: Symmetric. Pupils equal round. Ears: Symmetric. Hearing within normal limits. Mouth: Clear. Neck: Supple. Carotid without bruit. Cardiac: Regular rate and rhythm. Lungs: Clear anteriorly and posteriorly. Abdomen: Soft active nontender. Extremities: Normal tone. Edema lower legs. Neurological: Mental status: Alert, cooperative, pleasant. Cranial nerves: Symmetric facial tone and trapezius. Motor: Active movement all 4 limbs. Arms at least antigravity in legs poor. Sensation: Intact throughout. DTRs: Symmetric and equal throughout. Mobility: Requires physical assist for bed mobility. Results CBC & Chem 7: 06/09/22 06:05 06/09/22 06:05 Labs: Abnormal Lab Results - Last 24 Hours (Table) 06/11/22 06/11/22 06/11/22 Range/Units 07:09 12:47 20:24 POC Glucose (mg/dL) 113 H 119 H 145 H (70-110) mg/dL Microbiology - Last 24 Hours (Table) 06/08/22 11:40 Blood Culture - Preliminary Blood No Growth after 72 hours 06/08/22 11:48 Blood Culture - Preliminary Blood No Growth after 72 hours Assessment and Plan (1) Stage II pressure ulcer of sacral region Current Visit: Yes Status: Acute Code(s): L89.152 - PRESSURE ULCER OF SACRAL REGION, STAGE 2 SNOMED Code(s): 34499421871970 (2) Stage III pressure ulcer of right buttock Current Visit: Yes Status: Acute Code(s): L89.313 - PRESSURE ULCER OF RIGHT BUTTOCK, STAGE 3 SNOMED Code(s): 34527161231922 Plan: Comments and plan: Patient functionally semi-paraplegic and with chronic decubitus ulcers. At this time requires multiple persons care 11/01. If unready for return to home would recommend ECF placement with this.
[2022-06-12 07:57] LABS: Glucose,Whole Blood 105 mg/dL (70-110)
[2022-06-12] MEDS: LACTOBACILLUS ACIDOPH & BULGAR 1 EACH PACKET PO SCH (09:07)
[2022-06-12] MEDS: HEPARIN SODIUM,PORCINE/PF 5,000 UNIT/0.5 ML SYRINGE SQ SCH ×2 (09:07→21:30)
[2022-06-12] MEDS: allopurinoL 300 MG TAB PO SCH (09:07)
[2022-06-12] MEDS: PANTOPRAZOLE 40 MG TABLET PO SCH (09:07)
[2022-06-12] MEDS: POTASSIUM CHLORIDE ER 20 MEQ TAB.ER PO SCH (09:07)
[2022-06-12] MEDS: MAGNESIUM OXIDE 400 MG TAB PO SCH ×2 (09:07→21:30)
[2022-06-12] MEDS: FAMOTIDINE 20 MG TAB PO SCH ×2 (09:08→21:29)
[2022-06-12] MEDS: LORATADINE 10 MG TAB PO SCH (09:08)
[2022-06-12] MEDS: TORSEMIDE 20 MG TAB PO SCH ×2 (09:08→21:30)
[2022-06-12] MEDS: INSULIN ASPART (NovoLOG) 100 UNIT/ML VIAL SQ SCH ×4 (09:24→21:28)
[2022-06-12] MEDS: NON FORMULARY DRUG (Methenamine Hippurate [Methenamine Hippurate] 1 GM Tablet) PO SCH ×2 (09:24→21:30)
[2022-06-12 12:12] LABS: Glucose,Whole Blood 110 mg/dL (70-110)
[2022-06-12] MEDS: SODIUM CHLORIDE 0.9% 1,000 ML IV SCH (15:44)
[2022-06-12 17:45] LABS: Glucose,Whole Blood 112 mg/dL (70-110)
--- NOTE | 2022-06-12 20:51 | P.PN ---
Subjective Progress Note Date: 06/12/22 Principal diagnosis: Urinary tract infection and infected right hip wound Patient is a 56 year female past medical history significant for diabetes mellitus recurrent UTI and chronic nonhealing wound to the right hip area admitted to the hospital concerning for wound infection any UTI in this patient had multiple antibiotic ALLERGIES. Patient is status post surgical debridement of her wound completed on 06/05/2022 On today's evaluation that is 06/12/2022, the patient remains to be afebrile, the patient is breathing comfortably on room air, the patient denies chest pain shortness of breath or cough , the patient denies abdominal pain, the patient is still complaining of diarrhea and seemed to have problem with the wound VAC suction/seal Objective - Vital Signs Vital signs: Vital Signs Temp 98.6 F 06/12/22 07:57 Pulse 68 06/12/22 07:57 Resp 16 06/12/22 07:57 BP 100/63 06/12/22 07:57 Pulse Ox 94 L 06/12/22 07:57 FiO2 Intake & Output 06/11/22 06/12/22 06/12/22 18:59 06:59 18:59 Intake Total 1000 Output Total 1000 1200 500 Balance -1000 -200 -500 Intake: Oral 1000 Output: Urine 1000 1200 500 Other: Voiding Method Self-Catheterization Self-Catheterization Self-Catheterization # Bowel Movements 1 - Exam GENERAL DESCRIPTION: Middle-aged female lying in bed in no distress RESPIRATORY SYSTEM: Unlabored breathing , decreased breath sounds at bases HEART: S1 S2 regular rate and rhythm , ABDOMEN: Soft , no tenderness EXTREMITIES: Right hip/gluteal wound as well as sacral wound are currently dressed - Labs CBC & Chem 7: 06/09/22 06:05 06/09/22 06:05 Labs: Abnormal Lab Results - Last 24 Hours (Table) 06/11/22 Range/Units 20:24 POC Glucose (mg/dL) 145 H (70-110) mg/dL Microbiology - Last 24 Hours (Table) 06/08/22 11:40 Blood Culture - Preliminary Blood No Growth after 72 hours 06/08/22 11:48 Blood Culture - Preliminary Blood No Growth after 72 hours Assessment and Plan (1) Unspecified open wound, right hip, subsequent encounter Current Visit: Yes Status: Acute Code(s): S71.001D - UNSPECIFIED OPEN WOUND, RIGHT HIP, SUBSEQUENT ENCOUNTER SNOMED Code(s): 63583666864889107 (2) UTI (urinary tract infection) Current Visit: Yes Status: Acute Code(s): N39.0 - URINARY TRACT INFECTION, SITE NOT SPECIFIED SNOMED Code(s): 46199359 Plan: 1patient with a nonhealing wound to the right hip area which seems to be deep tunneling and did have surrounding inflammatory changes and maceration concerning for wound infection possibly related to gram-positive skin eduarda however gram-negative infection not entirely excluded. 2patient did have a positive UA concerning for a gram-negative enteric pathogen with urine cultures currently growing E. coli that is sensitive pathogen antibiotic 3patient with multiple antibiotic allergies that would limit the number of antibiotics safe to use. 4patient did have a stage III right gluteal pressure ulcer local care status post debridement and local care to continue with wound VAC 5patient did have a stage IV sacral pressure ulcer with the bone palpable status post debridement, local wound care to continue with wound VAC 6 local cultures are growing drug-resistant Enterobacter in addition to E. coli and enterococcus which is penicillin sensitive , patient to continue with the Invanz 1 g daily to finish a course of therapy 7-diarrhea patient has been encouraged to increase her probiotic and yogurt take and continue with the Questran Time with Patient: Less than 30
[2022-06-12 20:57] LABS: Glucose,Whole Blood 133 mg/dL (70-110)
[2022-06-12] MEDS: METOPROLOL SUCCINATE (ER) 25 MG TAB.ER.24H PO SCH (21:29)
[2022-06-12] MEDS: ERTAPENEM 1 GM in SODIUM CHLORIDE 0.9% 50 ML IVPB SCH (21:29)
--- NOTE | 2022-06-13 06:45 | PN ---
PROGRESS NOTE DATE OF SERVICE: 06/12/2022 SUBJECTIVE: This 56-year-old woman, who was admitted after right sacral wound is being closely monitored. 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 OBJECTIVE: VITAL SIGNS: Pulse is 68, blood pressurentd respirations 16. CHEST: Clear. CARDIOVASCULAR: n ABDOMEN: Soft, wound VAC present. LABS: Reviewed. ASSESSMENT: 1. Right sacral wound ulcer, stage IV, status post debridement. 2. Escherichia coli urinary tract infection. 3. Group D Enterococcus bacteremia. 4. Chronic anemia with hemoglobin stable. 5. Social issues. RECOMMENDATIONS: This 56-year-old woman, who presented with multiple complex medical issues, we will monitor the patient closely. The patient has significant wound infection and wound VAC is required. The patient had high need including IV antibiotics and wound VAC and other management which is rather costly for the [facility] per the staff and the discharge planning team, so we will continue to monitor and search for other ECF, who is willing to accept the patient. Further recommendations to follow. MMODL / IJN: [id number] / FAUZIA
[2022-06-13 07:37] LABS: Glucose,Whole Blood 109 mg/dL (70-110)
[2022-06-13] MEDS: INSULIN ASPART (NovoLOG) 100 UNIT/ML VIAL SQ SCH ×4 (07:39→20:52)
[2022-06-13] MEDS: LACTOBACILLUS ACIDOPH & BULGAR 1 EACH PACKET PO SCH (08:01)
[2022-06-13] MEDS: HEPARIN SODIUM,PORCINE/PF 5,000 UNIT/0.5 ML SYRINGE SQ SCH ×2 (08:01→21:20)
[2022-06-13] MEDS: LOPERAMIDE 2 MG CAP PO PRN ×2 (08:01→17:16)
[2022-06-13] MEDS: LORATADINE 10 MG TAB PO SCH (08:01)
[2022-06-13] MEDS: allopurinoL 300 MG TAB PO SCH (08:01)
[2022-06-13] MEDS: MAGNESIUM OXIDE 400 MG TAB PO SCH ×2 (08:05→21:20)
[2022-06-13] MEDS: FAMOTIDINE 20 MG TAB PO SCH ×2 (08:05→21:20)
[2022-06-13] MEDS: PANTOPRAZOLE 40 MG TABLET PO SCH (08:05)
[2022-06-13] MEDS: POTASSIUM CHLORIDE ER 20 MEQ TAB.ER PO SCH (08:05)
[2022-06-13] MEDS: TORSEMIDE 20 MG TAB PO SCH ×2 (08:06→21:20)
[2022-06-13] MEDS: NON FORMULARY DRUG (Methenamine Hippurate [Methenamine Hippurate] 1 GM Tablet) PO SCH ×2 (08:11→19:35)
[2022-06-13 11:49] LABS: Glucose,Whole Blood 133 mg/dL (70-110)
--- NOTE | 2022-06-13 14:08 | P.PN ---
Subjective Progress Note Date: 06/13/22 Principal diagnosis: Urinary tract infection and infected right hip wound Patient is a 56 year female past medical history significant for diabetes mellitus recurrent UTI and chronic nonhealing wound to the right hip area admitted to the hospital concerning for wound infection any UTI in this patient had multiple antibiotic ALLERGIES. Patient is status post surgical debridement of her wound completed on 06/05/2022 On today's evaluation that is 06/13/2022, the patient continues to be afebrile, the patient is breathing comfortably on room air, the patient denies chest pain shortness of breath or cough , the patient denies abdominal pain, the patient continued to be complaining of diarrhea did have an episode this morning per the nursing staff however mention is not as watery and no blood or mucus in the stool Objective - Vital Signs Vital signs: Vital Signs Temp 98.9 F 06/13/22 07:38 Pulse 76 06/13/22 07:38 Resp 18 06/13/22 07:38 BP 107/62 06/13/22 07:38 Pulse Ox 98 06/13/22 07:38 FiO2 Intake & Output 06/12/22 06/13/22 06/13/22 18:59 06:59 18:59 Output Total 1500 1050 0 Balance -1500 -1050 0 Weight 127.006 kg Output: Urine 1500 1050 Stool 0 Other: Voiding Method Self-Catheterization Self-Catheterization Self-Catheterization - Exam GENERAL DESCRIPTION: Middle-aged female lying in bed in no distress RESPIRATORY SYSTEM: Unlabored breathing , decreased breath sounds at bases HEART: S1 S2 regular rate and rhythm , ABDOMEN: Soft , no tenderness EXTREMITIES: Right hip/gluteal wound as well as sacral wound are currently dressed - Labs CBC & Chem 7: 06/09/22 06:05 06/09/22 06:05 Labs: Abnormal Lab Results - Last 24 Hours (Table) 06/12/22 06/12/22 06/13/22 Range/Units 17:43 20:56 11:47 POC Glucose (mg/dL) 112 H 133 H 133 H (70-110) mg/dL Microbiology - Last 24 Hours (Table) 06/08/22 11:40 Blood Culture - Preliminary Blood No Growth after 96 hours 06/08/22 11:48 Blood Culture - Preliminary Blood No Growth after 96 hours Assessment and Plan (1) Unspecified open wound, right hip, subsequent encounter Current Visit: Yes Status: Acute Code(s): S71.001D - UNSPECIFIED OPEN WOUND, RIGHT HIP, SUBSEQUENT ENCOUNTER SNOMED Code(s): 89843390599391789 (2) UTI (urinary tract infection) Current Visit: Yes Status: Acute Code(s): N39.0 - URINARY TRACT INFECTION, SITE NOT SPECIFIED SNOMED Code(s): 42231776 Plan: 1patient with a nonhealing wound to the right hip area which seems to be deep tunneling and did have surrounding inflammatory changes and maceration concerning for wound infection possibly related to gram-positive skin eduarda however gram-negative infection not entirely excluded. 2patient did have a positive UA concerning for a gram-negative enteric pathogen with urine cultures currently growing E. coli that is sensitive pathogen antibiotic 3patient with multiple antibiotic allergies that would limit the number of antibiotics safe to use. 4patient did have a stage III right gluteal pressure ulcer local care status post debridement and local care to continue with wound VAC 5patient did have a stage IV sacral pressure ulcer with the bone palpable status post debridement, local wound care to continue with wound VAC 6 local cultures are growing drug-resistant Enterobacter in addition to E. coli and enterococcus which is penicillin sensitive , patient to continue with the Invanz 1 g daily to finish a 6 week course of therapy 7-diarrhea patient advised again to increase her probiotic and yogurt take and continue with the Questran as well as Imodium per the nursing staff stools are too thick for a fecal management system Time with Patient: Less than 30
[2022-06-13 17:20] LABS: Glucose,Whole Blood 124 mg/dL (70-110)
[2022-06-13] MEDS: SODIUM CHLORIDE 0.9% 1,000 ML IV SCH (19:35)
[2022-06-13] MEDS: METOPROLOL SUCCINATE (ER) 25 MG TAB.ER.24H PO SCH (19:37)
[2022-06-13 20:16] LABS: Glucose,Whole Blood 139 mg/dL (70-110)
[2022-06-13] MEDS: ERTAPENEM 1 GM in SODIUM CHLORIDE 0.9% 50 ML IVPB SCH (21:20)
[2022-06-14 07:52] LABS: Glucose,Whole Blood 105 mg/dL (70-110)
--- NOTE | 2022-06-14 08:22 | PN ---
PROGRESS NOTE DATE OF SERVICE: 06/13/2022 SUBJECTIVE: This 56-year-old woman was admitted for sacral decubitus wound, is awaiting ECF placement at this time. No chest pain, no palpitations. Patient on IV antibiotics. OBJECTIVE: VITAL SIGNS: Pulse is 76, blood pressure 107/60, and respirations 18. CHEST: Clear to auscultation. CARDIOVASCULAR: S1, S2. ABDOMEN: Soft. Sacral wound present. LABS: Reviewed. ASSESSMENT: 1. Right sacral wound ulcer, stage IV, status post debridement. 2. E coli urinary tract infection. 3. Group D Enterococcus bacteremia. 4. Chronic anemia with hemoglobin stable. 5. Social issues. RECOMMENDATIONS: Recommended to continue current medications. Continue symptomatic treatment. Otherwise at this time continue the antibiotic. Await ECF placement per case management team. Further recommendations to follow. MMODL / ZENN: [id number] /
[2022-06-14] MEDS: HEPARIN SODIUM,PORCINE/PF 5,000 UNIT/0.5 ML SYRINGE SQ SCH ×2 (09:10→21:15)
[2022-06-14] MEDS: INSULIN ASPART (NovoLOG) 100 UNIT/ML VIAL SQ SCH ×4 (09:10→21:09)
[2022-06-14] MEDS: LORATADINE 10 MG TAB PO SCH (09:11)
[2022-06-14] MEDS: allopurinoL 300 MG TAB PO SCH (09:11)
[2022-06-14] MEDS: FAMOTIDINE 20 MG TAB PO SCH ×2 (09:11→21:15)
[2022-06-14] MEDS: POTASSIUM CHLORIDE ER 20 MEQ TAB.ER PO SCH (09:11)
[2022-06-14] MEDS: NON FORMULARY DRUG (Methenamine Hippurate [Methenamine Hippurate] 1 GM Tablet) PO SCH ×2 (09:11→20:04)
[2022-06-14] MEDS: PANTOPRAZOLE 40 MG TABLET PO SCH (09:11)
[2022-06-14] MEDS: TORSEMIDE 20 MG TAB PO SCH ×2 (09:11→21:15)
[2022-06-14] MEDS: LACTOBACILLUS ACIDOPH & BULGAR 1 EACH PACKET PO SCH (09:11)
[2022-06-14] MEDS: MAGNESIUM OXIDE 400 MG TAB PO SCH ×2 (09:11→21:15)
[2022-06-14 11:30] LABS: Glucose,Whole Blood 123 mg/dL (70-110)
[2022-06-14] MEDS: SODIUM CHLORIDE 0.9% 1,000 ML IV SCH (14:17)
--- NOTE | 2022-06-14 15:35 | P.PN ---
Subjective Progress Note Date: 06/14/22 Principal diagnosis: Urinary tract infection and infected right hip wound Patient is a 56 year female past medical history significant for diabetes mellitus recurrent UTI and chronic nonhealing wound to the right hip area admitted to the hospital concerning for wound infection any UTI in this patient had multiple antibiotic ALLERGIES. Patient is status post surgical debridement of her wound completed on 06/05/2022 On today's evaluation that is 06/14/2022, the patient remains to be afebrile, the patient is breathing comfortably on room air, the patient denies chest pain shortness of breath or cough , the patient denies abdominal pain, the patient is still complaining of diarrhea every time she eats however the nursing staff is reporting one episode since morning Objective - Vital Signs Vital signs: Vital Signs Temp 98.9 F 06/14/22 12:00 Pulse 81 06/14/22 12:00 Resp 16 06/14/22 12:00 BP 102/68 06/14/22 12:00 Pulse Ox 98 06/14/22 12:00 FiO2 Intake & Output 06/13/22 06/14/22 06/14/22 18:59 06:59 18:59 Intake Total 1200 Output Total 1250 1200 Balance -50 -1200 Intake: Oral 1200 Output: Urine 1250 1200 Stool 0 Other: Voiding Method Self-Catheterization Self-Catheterization Self-Catheterization # Bowel Movements 1 - Exam GENERAL DESCRIPTION: Middle-aged female lying in bed in no distress RESPIRATORY SYSTEM: Unlabored breathing , decreased breath sounds at bases HEART: S1 S2 regular rate and rhythm , ABDOMEN: Soft , no tenderness EXTREMITIES: Right hip/gluteal wound as well as sacral wound are currently dressed - Labs CBC & Chem 7: 06/09/22 06:05 06/09/22 06:05 Labs: Abnormal Lab Results - Last 24 Hours (Table) 06/13/22 06/13/22 06/14/22 Range/Units 17:18 20:13 11:29 POC Glucose (mg/dL) 124 H 139 H 123 H (70-110) mg/dL Microbiology - Last 24 Hours (Table) 06/08/22 11:40 Blood Culture - Final Blood No Growth after 144 hours 06/08/22 11:48 Blood Culture - Final Blood No Growth after 144 hours Assessment and Plan (1) Unspecified open wound, right hip, subsequent encounter Current Visit: Yes Status: Acute Code(s): S71.001D - UNSPECIFIED OPEN WOUND, RIGHT HIP, SUBSEQUENT ENCOUNTER SNOMED Code(s): 73373549418176354 (2) UTI (urinary tract infection) Current Visit: Yes Status: Acute Code(s): N39.0 - URINARY TRACT INFECTION, SITE NOT SPECIFIED SNOMED Code(s): 39905363 Plan: 1patient with a nonhealing wound to the right hip area which seems to be deep tunneling and did have surrounding inflammatory changes and maceration con cerning for wound infection possibly related to gram-positive skin eduarda however gram-negative infection not entirely excluded. 2patient did have a positive UA concerning for a gram-negative enteric pathogen with urine cultures currently growing E. coli that is sensitive pathogen antibiotic 3patient with multiple antibiotic allergies that would limit the number of antibiotics safe to use. 4patient did have a stage III right gluteal pressure ulcer local care status post debridement and local care to continue with wound VAC 5patient did have a stage IV sacral pressure ulcer with the bone palpable status post debridement, local wound care to continue with wound VAC 6 local cultures are growing drug-resistant Enterobacter in addition to E. coli and enterococcus which is penicillin sensitive , patient to continue with the Invanz 1 g daily to finish a 6 week course of therapy 7-diarrhea , we will restart her Questran continue with the Imodium probiotics and recheck her inflammatory markers Time with Patient: Less than 30
[2022-06-14 17:25] LABS: Glucose,Whole Blood 141 mg/dL (70-110)
[2022-06-14] MEDS: CHOLESTYRAMINE (WITH SUGAR) 4 GM PACKET PO SCH (18:18)
[2022-06-14 20:57] LABS: Glucose,Whole Blood 123 mg/dL (70-110)
[2022-06-14] MEDS: ERTAPENEM 1 GM in SODIUM CHLORIDE 0.9% 50 ML IVPB SCH (21:15)
[2022-06-14] MEDS: METOPROLOL SUCCINATE (ER) 25 MG TAB.ER.24H PO SCH (21:15)
[2022-06-14] MEDS: ACETAMINOPHEN TAB 325 MG TAB PO PRN (21:24)
--- NOTE | 2022-06-15 04:10 | PN ---
PROGRESS NOTE DATE OF SERVICE: 06/14/2022 This 56-year-old woman was admitted with right sacral wound and multiple other medical problems, being closely monitored. The patient needs wound VAC and IV antibiotics. ECF placement per Case Management pending at this time. PHYSICAL EXAMINATION: VITAL SIGNS: Pulse is 82, blood pressure 99/60, respirations 15. CHEST: Clear to auscultation. CARDIOVASCULAR: S1, S2. ABDOMEN: Soft. BACK: Wound ulcer present. LABORATORY DATA: Labs are reviewed. ASSESSMENT: 1. Right sacral wound ulcer, stage IV, status post debridement. 2. Escherichia coli urinary tract infection. 3. Group D Enterococcus bacteremia. 4. Chronic anemia, hemoglobin stable. 5. Social issues. RECOMMENDATIONS: Recommended to continue current medications and symptomatic treatment. Otherwise, continue the current medications. Follow up closely with ID. Discharge planning. barn worker. ECF rehab. Further recommendations to follow. MMPREETL / ZENN: [id number] /
[2022-06-15] MEDS: NON FORMULARY DRUG (Methenamine Hippurate [Methenamine Hippurate] 1 GM Tablet) PO SCH (07:36)
[2022-06-15 07:42] LABS: Glucose,Whole Blood 118 mg/dL (70-110)
[2022-06-15] MEDS: INSULIN ASPART (NovoLOG) 100 UNIT/ML VIAL SQ SCH ×4 (07:47→23:38)
[2022-06-15] MEDS: allopurinoL 300 MG TAB PO SCH (08:44)
[2022-06-15] MEDS: LACTOBACILLUS ACIDOPH & BULGAR 1 EACH PACKET PO SCH (08:44)
[2022-06-15] MEDS: MAGNESIUM OXIDE 400 MG TAB PO SCH (08:44)
[2022-06-15] MEDS: PANTOPRAZOLE 40 MG TABLET PO SCH (08:44)
[2022-06-15] MEDS: HEPARIN SODIUM,PORCINE/PF 5,000 UNIT/0.5 ML SYRINGE SQ SCH (08:44)
[2022-06-15] MEDS: LORATADINE 10 MG TAB PO SCH (08:44)
[2022-06-15] MEDS: FAMOTIDINE 20 MG TAB PO SCH (08:44)
[2022-06-15] MEDS: POTASSIUM CHLORIDE ER 20 MEQ TAB.ER PO SCH (08:45)
[2022-06-15] MEDS: CHOLESTYRAMINE (WITH SUGAR) 4 GM PACKET PO SCH ×2 (08:45→17:10)
[2022-06-15] MEDS: TORSEMIDE 20 MG TAB PO SCH (08:45)
[2022-06-15 09:13] LABS: Basophils # (A) 0.08 X 10*3/uL (0.00-0.10); Eosinophils # (A) 0.01 X 10*3/uL (0.04-0.35); Eosinophils % (A) 0.1 %; HCT 30.8 % (37.2-46.3); HGB 9.1 g/dL (12.0-15.0); Immature Grans, Automated 1.1 %; Lymphocytes # (A) 2.14 X 10*3/uL (0.90-5.00); Lymphocytes % (A) 26.6 %; MCH 28.8 pg (27.0-32.0); MCHC 29.5 g/dL (32.0-37.0); MCV 97.5 fL (80.0-97.0); Mean Platelet Volume 9.5 fL (9.5-12.2); Monocytes # (A) 1.09 X 10*3/uL (0.20-1.00); Monocytes % (A) 13.5 %; NRBC Per 100 WBC 0 /100 WBCS (0.0-0.0); Neutrophils # (A) 4.64 X 10*3/uL (1.80-7.70); Neutrophils % (A) 57.7 %; Platelet Count 663 X 10*3/uL (140-440); RBC 3.16 X 10*6/uL (4.10-5.20); RDW 17.8 % (11.5-14.5); WBC 8.05 X 10*3/uL (4.50-10.00)
[2022-06-15 09:29] LABS: ALT 10 U/L (8-44); AST 16 U/L (13-35); Albumin 2.9 g/dL (3.8-4.9); Albumin/Globulin Ratio 0.78 (1.60-3.17); Alkaline Phosphatase 108 U/L (41-126); BUN/Creat Ratio 20.57 Ratio (12.00-20.00); Blood Urea Nitrogen 14.4 mg/dL (9.0-27.0); Calcium 8.7 mg/dL (8.7-10.3); Carbon Dioxide 24.8 mmol/L (20.0-27.5); Chloride 104 mmol/L (96-109); Globulin 3.7 g/dL (1.6-3.3); Glucose 129 mg/dL (70-110); Non-African American GFR(CKD) 97.5 (60.0-200.0); Potassium 4.5 mmol/L (3.5-5.5); Sodium 139 mmol/L (135-145); Total Bilirubin <0.15 mg/dL (0.30-1.20); Total Protein 6.6 g/dL (6.2-8.2)
[2022-06-15 10:31] LABS: Erythrocyte Sedimentation Rate >130 mm/Hr (0-30)
[2022-06-15] MEDS: SODIUM CHLORIDE 0.9% 1,000 ML IV SCH ×2 (13:12→21:08)
[2022-06-15 13:19] LABS: Glucose,Whole Blood 111 mg/dL (70-110)
--- NOTE | 2022-06-15 16:31 | P.PN ---
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 Patient is status post surgical debridement of her wound completed on 06/05/2022 On today's evaluation that is 06/15/2022, the patient continues to be afebrile, the patient is breathing comfortably on room air, the patient denies chest pain shortness of breath or cough , the patient denies abdominal pain, the patient still having diarrhea and concern for not getting a good seal on the wound VAC and there is some contamination of the sacral wound with a stool Objective - Vital Signs Vital signs: Vital Signs Temp 99.2 F 06/15/22 07:37 Pulse 72 06/15/22 07:37 Resp 18 06/15/22 07:37 BP 104/64 06/15/22 07:37 Pulse Ox 95 06/15/22 07:37 FiO2 Intake & Output 06/14/22 06/15/22 06/15/22 18:59 06:59 18:59 Intake Total 590 Output Total 800 1000 Balance -800 -410 Intake: Oral 590 Output: Urine 800 1000 Other: Voiding Method Self-Catheterization Self-Catheterization Self-Catheterization # Bowel Movements 1 1 - Exam GENERAL DESCRIPTION: Middle-aged female lying in bed in no distress RESPIRATORY SYSTEM: Unlabored breathing , decreased breath sounds at bases HEART: S1 S2 regular rate and rhythm , ABDOMEN: Soft , no tenderness EXTREMITIES: Right hip wound is looking clean or any minimal slough sacral wound did have some slough tissue but significant surrounding maceration - Labs CBC & Chem 7: 06/15/22 04:52 06/15/22 04:52 Labs: Abnormal Lab Results - Last 24 Hours (Table) 06/14/22 06/14/22 06/15/22 Range/Units 17:24 20:55 04:52 RBC 3.16 L (4.10-5.20) X 10*6/uL Hgb 9.1 L (12.0-15.0) g/dL Hct 30.8 L (37.2-46.3) % MCV 97.5 H (80.0-97.0) fL MCHC 29.5 L (32.0-37.0) g/dL RDW 17.8 H (11.5-14.5) % Plt Count 663 H (140-440) X 10*3/uL Immature Gran # 0.09 H (0.00-0.04) X 10*3/uL Monocytes # 1.09 H (0.20-1.00) X 10*3/uL Eosinophils # 0.01 L (0.04-0.35) X 10*3/uL ESR >130 H (0-30) mm/Hr BUN/Creatinine Ratio (12.00-20.00) Ratio Glucose (70-110) mg/dL POC Glucose (mg/dL) 141 H 123 H (70-110) mg/dL Total Bilirubin (0.30-1.20) mg/dL C-Reactive Protein (0.00-0.80) mg/dL Albumin (3.8-4.9) g/dL Globulin (1.6-3.3) g/dL Albumin/Globulin Ratio (1.60-3.17) g/dL 06/15/22 06/15/22 Range/Units 04:52 07:38 RBC (4.10-5.20) X 10*6/uL Hgb (12.0-15.0) g/dL Hct (37.2-46.3) % MCV (80.0-97.0) fL MCHC (32.0-37.0) g/dL RDW (11.5-14.5) % Plt Count (140-440) X 10*3/uL Immature Gran # (0.00-0.04) X 10*3/uL Monocytes # (0.20-1.00) X 10*3/uL Eosinophils # (0.04-0.35) X 10*3/uL ESR (0-30) mm/Hr BUN/Creatinine Ratio 20.57 H (12.00-20.00) Ratio Glucose 129 H (70-110) mg/dL POC Glucose (mg/dL) 118 H (70-110) mg/dL Total Bilirubin <0.15 L (0.30-1.20) mg/dL C-Reactive Protein 8.00 H (0.00-0.80) mg/dL Albumin 2.9 L (3.8-4.9) g/dL Globulin 3.7 H (1.6-3.3) g/dL Albumin/Globulin Ratio 0.78 L (1.60-3.17) g/dL Microbiology - Last 24 Hours (Table) 06/08/22 11:40 Blood Culture - Final Blood No Growth after 144 hours 06/08/22 11:48 Blood Culture - Final Blood No Growth after 144 hours Assessment and Plan (1) Unspecified open wound, right hip, subsequent encounter Current Visit: Yes Status: Acute Code(s): S71.001D - UNSPECIFIED OPEN WOUND, RIGHT HIP, SUBSEQUENT ENCOUNTER SNOMED Code(s): 89060919232426002 (2) UTI (urinary tract infection) Current Visit: Yes Status: Acute Code(s): N39.0 - URINARY TRACT INFECTION, SITE NOT SPECIFIED SNOMED Code(s): 65665529 Plan: 1patient with a nonhealing wound to the right hip area which seems to be deep tunneling and did have surrounding inflammatory changes and maceration concerning for wound infection possibly related to gram-positive skin eduarda however gram-negative infection not entirely excluded. 2patient did have a positive UA concerning for a gram-negative enteric pathogen with urine cultures currently growing E. coli that is sensitive pathogen antibiotic 3patient with multiple antibiotic allergies that would limit the number of ant ibiotics safe to use. 4patient did have a stage III right gluteal pressure ulcer local care status post debridement and local care to continue will be switched to medahoney followed by moist dressing 5patient did have a stage IV sacral pressure ulcer with the bone palpable status post debridement, local wound care will be switched to medahoney followed by moist dressing 6 local cultures are growing drug-resistant Enterobacter in addition to E. coli and enterococcus which is penicillin sensitive , patient to continue with the Invanz 1 g daily to finish a 6 week course of therapy 7-diarrhea , patient to continue with the Questran and obtain GI evaluation in view of the persistent diarrhea Time with Patient: Less than 30
[2022-06-15] MEDS: LOPERAMIDE 2 MG CAP PO PRN (17:10)
[2022-06-15 17:28] LABS: Glucose,Whole Blood 128 mg/dL (70-110)
[2022-06-15 21:09] LABS: Glucose,Whole Blood 138 mg/dL (70-110)
--- NOTE | 2022-06-15 22:52 | PN ---
PROGRESS NOTE DATE OF SERVICE: 06/15/2022 SUBJECTIVE: This 56-year-old woman, who was admitted with right sacral wound, is being closely monitored. The patient needs wound VAC. commercial credit portfolio manager, social sciences research scientist is looking for ECF placement. OBJECTIVE: VITAL SIGNS: Pulse 69, blood pressure 88/51, respirations 16. CHEST: Clear to auscultation. CARDIOVASCULAR: S1 and S2. ABDOMEN: Soft. Sacral decubitus present. NERVOUS SYSTEM: Unchanged. LABORATORY DATA: Reviewed. ASSESSMENT: 1. Right sacral wound, stage IV, status post debridement. 2. Escherichia coli urinary tract infection. 3. Group D Enterococcus bacteremia. 4. Chronic anemia. Hemoglobin is stable. 5. Social issues. RECOMMENDATIONS: I recommend to continue the current medications. Continue with symptomatic treatment. Otherwise, closely monitor. Repeat labs will be ordered. commercial credit portfolio manager, social sciences research scientist to follow the patient for possibly ECF rehab. Further recommendations to follow. MMODL / IJN: [id number] /
[2022-06-15] MEDS: ERTAPENEM 1 GM in SODIUM CHLORIDE 0.9% 50 ML IVPB SCH (23:56)
[2022-06-16] MEDS: MAGNESIUM OXIDE 400 MG TAB PO SCH ×3 (00:01→21:36)
[2022-06-16] MEDS: FAMOTIDINE 20 MG TAB PO SCH ×3 (00:01→21:36)
[2022-06-16] MEDS: METOPROLOL SUCCINATE (ER) 25 MG TAB.ER.24H PO SCH ×2 (00:01→21:36)
[2022-06-16] MEDS: HEPARIN SODIUM,PORCINE/PF 5,000 UNIT/0.5 ML SYRINGE SQ SCH ×3 (00:02→21:37)
[2022-06-16] MEDS: TORSEMIDE 20 MG TAB PO SCH ×3 (00:03→21:36)
[2022-06-16] MEDS: NON FORMULARY DRUG (Methenamine Hippurate [Methenamine Hippurate] 1 GM Tablet) PO SCH ×3 (00:03→21:14)
[2022-06-16 08:14] LABS: Glucose,Whole Blood 114 mg/dL (70-110)
[2022-06-16] MEDS: INSULIN ASPART (NovoLOG) 100 UNIT/ML VIAL SQ SCH ×4 (08:19→21:14)
[2022-06-16] MEDS: allopurinoL 300 MG TAB PO SCH (08:25)
[2022-06-16] MEDS: POTASSIUM CHLORIDE ER 20 MEQ TAB.ER PO SCH (08:25)
[2022-06-16] MEDS: LORATADINE 10 MG TAB PO SCH (08:25)
[2022-06-16] MEDS: LACTOBACILLUS ACIDOPH & BULGAR 1 EACH PACKET PO SCH (08:26)
[2022-06-16] MEDS: PANTOPRAZOLE 40 MG TABLET PO SCH (08:26)
[2022-06-16] MEDS: CHOLESTYRAMINE (WITH SUGAR) 4 GM PACKET PO SCH ×2 (08:27→17:42)
[2022-06-16 08:53] LABS: Basophils # (A) 0.09 X 10*3/uL (0.00-0.10); Eosinophils # (A) 0.01 X 10*3/uL (0.04-0.35); Eosinophils % (A) 0.1 %; HCT 28.6 % (37.2-46.3); HGB 8.9 g/dL (12.0-15.0); Immature Grans, Automated 1.3 %; Lymphocytes # (A) 2.88 X 10*3/uL (0.90-5.00); Lymphocytes % (A) 33.1 %; MCH 29.5 pg (27.0-32.0); MCHC 31.1 g/dL (32.0-37.0); MCV 94.7 fL (80.0-97.0); Mean Platelet Volume 9.8 fL (9.5-12.2); Monocytes # (A) 1.24 X 10*3/uL (0.20-1.00); Monocytes % (A) 14.3 %; NRBC Per 100 WBC 0 /100 WBCS (0.0-0.0); Neutrophils # (A) 4.36 X 10*3/uL (1.80-7.70); Neutrophils % (A) 50.2 %; Platelet Count 599 X 10*3/uL (140-440); RBC 3.02 X 10*6/uL (4.10-5.20); RDW 17.8 % (11.5-14.5); WBC 8.69 X 10*3/uL (4.50-10.00)
[2022-06-16 09:11] LABS: African American GFR (CKD) 118.9 (60.0-200.0); BUN/Creat Ratio 19.33 Ratio (12.00-20.00); Blood Urea Nitrogen 11.6 mg/dL (9.0-27.0); Calcium 8.8 mg/dL (8.7-10.3); Non-African American GFR(CKD) 102.6 (60.0-200.0); Potassium 4.6 mmol/L (3.5-5.5)
[2022-06-16 11:28] LABS: Glucose,Whole Blood 132 mg/dL (70-110)
--- NOTE | 2022-06-16 14:50 | CDI ---
Documentation Clarification Form Date: 06/16/2022 02:17:30 PM From: Kylee Burnham RN CCDS Admit Date: 06/01/2022 12:48:00 PM Patient Name: Marielos Cardenas Visit Number: [id number] Discharge Date: ATTENTION: The Clinical Documentation Specialists (CDI) and [facility] Coding Staff appreciate your assistance in clarifying documentation. Please respond to the clarification below the line at the bottom and electronically sign. The CDI & [facility] Coding staff will review the response and follow-up if needed. Please note: Queries are made part of the Legal Health Record. If you have any questions, please contact the author of this message via ITS. Dr. Brigido Armenta There is documentation of Group D enterococcus bacteremia, 06/07 06/15, Medicine progress notes. Additional clarification is requested. History/Risk Factors: 56-year-old female presents to the ED with concerns of worsening bedsore. Medical History: Asthma, Type DM 1, HTN, Gout and BMI 56.6. Clinical Indicators: 05/28 Urine culture final: Escherichia coli 06/05, Tissue Culture Gram Stain Final: Escherichia coli 06/05 Wound Culture Final: Enterococcus faecalis. 06/08 Blood Culture Final: No growth after 144 hours. 06/07, Medicine Progress Note: Patient overall doing well, she denies significant pain at her right surgical wound, she still has diarrhea and rectal tube was placed, her blood culture came back positive today for enterococcus group D 06/07, ID consult: persistent local cultures are not showing drug-resistant Enterobacter in addition to E. coli and enterococcus with a sensitivity on enterococcus is currently pending we will discontinue Rocephin and start the patient on ertapenem continue with the daptomycin until sensitivities on enterococcus are finalized Treatment: 05/28 0.9NS 1L Ivpb x 1; 05/28 Rocephin IVP x 1; 06/07 to current Ertapenem 1GM Ivpb Daily; 05/28 06/08 Daptomycin Ivpb Q6H; 05/30 06/04 Aztreonam Ivpb Q8H; 06/04 06/07 Ceftriaxone Ivpb Q24H ID consult: see above Can you please clarify bacteremia? [ ] Group D enterococcus bacteremia ruled out [ ] Group D enterococcus bacteremia ruled in [ ] Other, please specify [ ] Unable to determine (Template Last Revised: August 2020) Group D enterococcus bacteremia ruled out MTDD
--- NOTE | 2022-06-16 15:52 | P.PN ---
Subjective Progress Note Date: 06/16/22 Principal diagnosis: Urinary tract infection and infected right hip wound Patient is a 56 year female past medical history significant for diabetes mellitus recurrent UTI and chronic nonhealing wound to the right hip area admitted to the hospital concerning for wound infection any UTI in this patient had multiple antibiotic ALLERGIES. Patient is status post surgical debridement of her wound completed on 06/05/2022 On today's evaluation that is 06/16/2022, the patient remains to be afebrile, the patient is breathing comfortably on room air, the patient denies chest pain shortness of breath or cough , the patient denies abdominal pain, the patient is complaining of diarrhea every time she eats denies any abdominal pain no nausea no vomiting or any pain to the sacral or the right hip wound Objective - Vital Signs Vital signs: Vital Signs Temp 99.1 F 06/16/22 07:40 Pulse 69 06/16/22 07:40 Resp 15 06/16/22 07:40 BP 101/56 06/16/22 07:40 Pulse Ox 94 L 06/16/22 07:40 FiO2 Intake & Output 06/15/22 06/16/22 06/16/22 18:59 06:59 18:59 Intake Total 120 590 Output Total 500 Balance 120 90 Intake: Intake, IV Titration 120 Amount Sodium Chloride 0.9% 1, 120 000 ml @ 20 mls/hr IV . Q24H [facility] Rx#:[id number] Oral 590 Output: Urine 500 Other: Voiding Method Self-Catheterization Self-Catheterization # Bowel Movements 2 - Exam GENERAL DESCRIPTION: Middle-aged female lying in bed in no distress RESPIRATORY SYSTEM: Unlabored breathing , decreased breath sounds at bases HEART: S1 S2 regular rate and rhythm , ABDOMEN: Soft , no tenderness EXTREMITIES: Right hip wound is currently dressed, sacral wound currently dressed - Labs CBC & Chem 7: 06/16/22 06:07 06/16/22 06:07 Labs: Abnormal Lab Results - Last 24 Hours (Table) 06/15/22 06/15/22 06/15/22 Range/Units 13:17 17:26 21:06 RBC (4.10-5.20) X 10*6/uL Hgb (12.0-15.0) g/dL Hct (37.2-46.3) % MCHC (32.0-37.0) g/dL RDW (11.5-14.5) % Plt Count (140-440) X 10*3/uL Immature Gran # (0.00-0.04) X 10*3/uL Monocytes # (0.20-1.00) X 10*3/uL Eosinophils # (0.04-0.35) X 10*3/uL POC Glucose (mg/dL) 111 H 128 H 138 H (70-110) mg/dL 06/16/22 06/16/22 06/16/22 Range/Units 06:07 07:42 11:26 RBC 3.02 L (4.10-5.20) X 10*6/uL Hgb 8.9 L (12.0-15.0) g/dL Hct 28.6 L (37.2-46.3) % MCHC 31.1 L (32.0-37.0) g/dL RDW 17.8 H (11.5-14.5) % Plt Count 599 H (140-440) X 10*3/uL Immature Gran # 0.11 H (0.00-0.04) X 10*3/uL Monocytes # 1.24 H (0.20-1.00) X 10*3/uL Eosinophils # 0.01 L (0.04-0.35) X 10*3/uL POC Glucose (mg/dL) 114 H 132 H (70-110) mg/dL Assessment and Plan (1) Unspecified open wound, right hip, subsequent encounter Current Visit: Yes Status: Acute Code(s): S71.001D - UNSPECIFIED OPEN WOUND, RIGHT HIP, SUBSEQUENT ENCOUNTER SNOMED Code(s): 77163302852127688 (2) UTI (urinary tract infection) Current Visit: Yes Status: Acute Code(s): N39.0 - URINARY TRACT INFECTION, SITE NOT SPECIFIED SNOMED Code(s): 18416932 Plan: 1patient with a nonhealing wound to the right hip area which seems to be deep tunneling and did have surrounding inflammatory changes and maceration concer kari for wound infection possibly related to gram-positive skin eduarda however gram-negative infection not entirely excluded. 2patient did have a positive UA concerning for a gram-negative enteric pathogen with urine cultures currently growing E. coli that is sensitive pathogen antibiotic 3patient with multiple antibiotic allergies that would limit the number of antibiotics safe to use. 4patient did have a stage III right gluteal pressure ulcer local care status post debridement and local care to continue to continue with medahoney followed by moist dressing 5patient did have a stage IV sacral pressure ulcer with the bone palpable status post debridement, local wound care to continue with medahoney followed by moist dressing 6 local cultures are growing drug-resistant Enterobacter in addition to E. coli and enterococcus which is penicillin sensitive , patient to continue with the Invanz 1 g daily to finish a 6 week course of therapy 7-diarrhea , patient to continue with the Questran and waiting for GI evaluation because of persistent diarrhea Time with Patient: Less than 30
[2022-06-16 17:32] LABS: Glucose,Whole Blood 147 mg/dL (70-110)
[2022-06-16 21:10] LABS: Glucose,Whole Blood 137 mg/dL (70-110)
[2022-06-16] MEDS: ERTAPENEM 1 GM in SODIUM CHLORIDE 0.9% 50 ML IVPB SCH (21:36)
--- NOTE | 2022-06-17 02:55 | PN ---
PROGRESS NOTE DATE OF SERVICE: 06/16/2022 SUBJECTIVE: This 56-year-old woman was admitted with multiple medical problems, sacral wound, also needed wound VAC and IV antibiotics. Apparently, nursing homes are not willing to accept the patient according to the case management discharge planning, LTAC is being considered as a possibility. OBJECTIVE: VITAL SIGNS: Pulse 71, blood pressure 160/80, and respirations 18. CHEST: Clear to auscultation. ABDOMEN: Soft. Sacral wound VAC present. LABORATORY DATA: Reviewed. ASSESSMENT: 1. Right sacral wound, stage IV, status post debridement. 2. E coli urinary tract infection. 3. Group D Enterococcus from the cultures. 4. Chronic anemia, hemoglobin stable. 5. Multiple social issues. RECOMMENDATIONS: Recommended to continue current medications and continue symptomatic treatment. Continue the PT, OT evaluation, other than that possibly LTAC transfer. Further recommendations to follow. DIETER / NELSON: [id number] /
[2022-06-17 07:32] LABS: Glucose,Whole Blood 116 mg/dL (70-110)
[2022-06-17] MEDS: INSULIN ASPART (NovoLOG) 100 UNIT/ML VIAL SQ SCH ×4 (07:35→20:53)
[2022-06-17] MEDS: LORATADINE 10 MG TAB PO SCH (08:13)
[2022-06-17] MEDS: CHOLESTYRAMINE (WITH SUGAR) 4 GM PACKET PO SCH ×2 (08:13→18:10)
[2022-06-17] MEDS: LACTOBACILLUS ACIDOPH & BULGAR 1 EACH PACKET PO SCH (08:13)
[2022-06-17] MEDS: HEPARIN SODIUM,PORCINE/PF 5,000 UNIT/0.5 ML SYRINGE SQ SCH ×2 (08:13→21:09)
[2022-06-17] MEDS: PANTOPRAZOLE 40 MG TABLET PO SCH (08:13)
[2022-06-17] MEDS: MAGNESIUM OXIDE 400 MG TAB PO SCH ×2 (08:13→21:09)
[2022-06-17] MEDS: FAMOTIDINE 20 MG TAB PO SCH ×2 (08:15→21:09)
[2022-06-17] MEDS: POTASSIUM CHLORIDE ER 20 MEQ TAB.ER PO SCH (08:15)
[2022-06-17] MEDS: allopurinoL 300 MG TAB PO SCH (08:15)
[2022-06-17] MEDS: TORSEMIDE 20 MG TAB PO SCH ×2 (08:15→21:09)
[2022-06-17] MEDS: NON FORMULARY DRUG (Methenamine Hippurate [Methenamine Hippurate] 1 GM Tablet) PO SCH ×2 (08:16→21:05)
[2022-06-17 11:17] LABS: Glucose,Whole Blood 147 mg/dL (70-110)
[2022-06-17] MEDS: SODIUM CHLORIDE 0.9% 1,000 ML IV SCH (13:20)
--- NOTE | 2022-06-17 14:44 | PN ---
PROGRESS NOTE DATE OF SERVICE: 06/17/2022 SUBJECTIVE: This is a 56-year-old woman who was admitted with right sacral wound stage IV. She is awaiting ECF placement. No chest pain, no palpitations, no fever. The patient also had a wound VAC also. OBJECTIVE: VITAL SIGNS: Pulse 64, blood pressure 119/59, and respirations 15. CHEST: Clear to auscultation. ABDOMEN: Soft. NERVOUS SYSTEM: Unchanged. LABORATORY DATA: Reviewed. ASSESSMENT: 1. Right sacral wound, stage IV, status post debridement. 2. E coli urinary tract infection. 3. Enterococcus faecalis from the cultures. 4. Chronic anemia. Hemoglobin is stable. 5. Multiple social issues. RECOMMENDATIONS AND DISCUSSION: I recommend to continue current medications, symptomatic treatment. Otherwise, recommend repeat labs and closely work with Case Management Team and Infectious Disease for possible ECF rehab. Wound management. Prognosis extremely guarded because of multiple complex medical issues. Further recommendations to follow. MMODL / IJN: [id number] /
--- NOTE | 2022-06-17 15:07 | P.PN ---
Subjective Progress Note Date: 06/17/22 Principal diagnosis: Urinary tract infection and infected right hip wound Patient is a 56 year female past medical history significant for diabetes mellitus recurrent UTI and chronic nonhealing wound to the right hip area admitted to the hospital concerning for wound infection any UTI in this patient had multiple antibiotic ALLERGIES. Patient is status post surgical debridement of her wound completed on 06/05/2022 On today's evaluation that is 06/17/2022, the patient continues to be afebrile, the patient is breathing comfortably on room air, the patient denies chest pain shortness of breath or cough , the patient denies abdominal pain, the patient main complaint remains to be diarrhea every time she eats however nurses to mention one small episode this morning, the patient denies nausea no vomiting or any pain to the sacral or the right hip wound Objective - Vital Signs Vital signs: Vital Signs Temp 98.8 F 06/17/22 07:21 Pulse 64 06/17/22 07:21 Resp 15 06/17/22 07:21 BP 102/59 06/17/22 07:21 Pulse Ox 97 06/17/22 07:21 FiO2 Intake & Output 06/16/22 06/17/22 06/17/22 18:59 06:59 18:59 Intake Total 1240 240 Output Total 1525 925 Balance -285 240 -925 Intake: Intake, IV Titration 240 Amount IV Fluid Continuation 25 240 ml @ 0 mls/hr IV .[facility] Rx#:[id number] Oral 1240 Output: Urine 1525 925 Stool 0 Other: Voiding Method Self-Catheterization Self-Catheterization Self-Catheterization Ileal Conduit (Right) Ileal Conduit (Right) # Bowel Movements 1 - Exam GENERAL DESCRIPTION: Middle-aged female lying in bed in no distress RESPIRATORY SYSTEM: Unlabored breathing , decreased breath sounds at bases HEART: S1 S2 regular rate and rhythm , ABDOMEN: Soft , no tenderness EXTREMITIES: Right hip wound is currently dressed, sacral wound currently dressed - Labs CBC & Chem 7: 06/16/22 06:07 06/16/22 06:07 Labs: Abnormal Lab Results - Last 24 Hours (Table) 06/16/22 06/16/22 06/17/22 Range/Units 17:28 21:09 07:19 POC Glucose (mg/dL) 147 H 137 H 116 H (70-110) mg/dL 06/17/22 Range/Units 11:16 POC Glucose (mg/dL) 147 H (70-110) mg/dL Assessment and Plan (1) Unspecified open wound, right hip, subsequent encounter Current Visit: Yes Status: Acute Code(s): S71.001D - UNSPECIFIED OPEN WOUND, RIGHT HIP, SUBSEQUENT ENCOUNTER SNOMED Code(s): 36185841064100701 (2) UTI (urinary tract infection) Current Visit: Yes Status: Acute Code(s): N39.0 - URINARY TRACT INFECTION, SITE NOT SPECIFIED SNOMED Code(s): 05012329 Plan: 1patient with a nonhealing wound to the right hip area which seems to be deep tunneling and did have surrounding inflammatory changes and maceration concerning for wound infection possibly related to gram-positive skin eduarda however gram-negative infection not entirely excluded. 2patient did have a positive UA concerning for a gram-negative enteric pathogen with urine cultures currently growing E. coli that is sensitive pathogen antibiotic 3patient with multiple antibiotic allergies that would limit the number of antibiotics safe to use. 4patient did have a stage III right gluteal pressure ulcer local care status post debridement and local care to continue to continue with medahoney followed by moist dressing 5patient did have a stage IV sacral pressure ulcer with the bone palpable status post debridement, local wound care to continue with medahoney followed by moist dressing 6 local cultures are growing drug-resistant Enterobacter in addition to E. coli and enterococcus which is penicillin sensitive , patient currently being treated with the Invanz 1 g daily and plan is to finish a total of 6 week course of therapy 7-diarrhea , patient to continue with the Questran and currently waiting for GI evaluation because of persistent diarrhea Time with Patient: Less than 30
[2022-06-17 17:12] LABS: Glucose,Whole Blood 107 mg/dL (70-110)
[2022-06-17 20:51] LABS: Glucose,Whole Blood 98 mg/dL (70-110)
[2022-06-17] MEDS: ACETAMINOPHEN TAB 325 MG TAB PO PRN (21:09)
[2022-06-17] MEDS: METOPROLOL SUCCINATE (ER) 25 MG TAB.ER.24H PO SCH (21:09)
[2022-06-17] MEDS: ERTAPENEM 1 GM in SODIUM CHLORIDE 0.9% 50 ML IVPB SCH (21:09)
[2022-06-18 07:16] LABS: Glucose,Whole Blood 99 mg/dL (70-110)
[2022-06-18] MEDS: INSULIN ASPART (NovoLOG) 100 UNIT/ML VIAL SQ SCH ×2 (07:21→11:20)
[2022-06-18] MEDS: NON FORMULARY DRUG (Methenamine Hippurate [Methenamine Hippurate] 1 GM Tablet) PO SCH (07:21)
[2022-06-18 07:41] VITALS: TEMP 98.4
[2022-06-18] MEDS: FAMOTIDINE 20 MG TAB PO SCH (09:05)
[2022-06-18] MEDS: SODIUM CHLORIDE 0.9% 1,000 ML IV SCH (09:05)
[2022-06-18] MEDS: LACTOBACILLUS ACIDOPH & BULGAR 1 EACH PACKET PO SCH (09:05)
[2022-06-18] MEDS: POTASSIUM CHLORIDE ER 20 MEQ TAB.ER PO SCH (09:05)
[2022-06-18] MEDS: LORATADINE 10 MG TAB PO SCH (09:05)
[2022-06-18] MEDS: PANTOPRAZOLE 40 MG TABLET PO SCH (09:05)
[2022-06-18] MEDS: TORSEMIDE 20 MG TAB PO SCH (09:05)
[2022-06-18] MEDS: CHOLESTYRAMINE (WITH SUGAR) 4 GM PACKET PO SCH (09:05)
[2022-06-18] MEDS: allopurinoL 300 MG TAB PO SCH (09:06)
[2022-06-18] MEDS: HEPARIN SODIUM,PORCINE/PF 5,000 UNIT/0.5 ML SYRINGE SQ SCH (09:06)
[2022-06-18] MEDS: MAGNESIUM OXIDE 400 MG TAB PO SCH (09:07)
--- NOTE | 2022-06-18 09:12 | P.EN ---
For clarification patient does not have a wound VAC given its location and was unable to effectively seal to the site and patient is without a wound VAC.
[2022-06-18 10:33] LABS: Basophils # (A) 0.05 X 10*3/uL (0.00-0.10); Basophils % (A) 0.6 %; Eosinophils # (A) 0.01 X 10*3/uL (0.04-0.35); Eosinophils % (A) 0.1 %; HCT 30.8 % (37.2-46.3); HGB 9.2 g/dL (12.0-15.0); Immature Grans, Automated 0.9 %; Lymphocytes # (A) 2.28 X 10*3/uL (0.90-5.00); MCH 28.7 pg (27.0-32.0); MCHC 29.9 g/dL (32.0-37.0); Mean Platelet Volume 9.7 fL (9.5-12.2); Monocytes # (A) 1.07 X 10*3/uL (0.20-1.00); Monocytes % (A) 13.1 %; NRBC Per 100 WBC 0 /100 WBCS (0.0-0.0); Neutrophils # (A) 4.67 X 10*3/uL (1.80-7.70); Neutrophils % (A) 57.3 %; Platelet Count 546 X 10*3/uL (140-440); RBC 3.21 X 10*6/uL (4.10-5.20); RDW 17.4 % (11.5-14.5); WBC 8.15 X 10*3/uL (4.50-10.00)
[2022-06-18 10:57] LABS: African American GFR (CKD) 118.8 (60.0-200.0); Albumin 2.7 g/dL (3.8-4.9); Albumin/Globulin Ratio 0.7 (1.60-3.17); Anion Gap 10.3 mmol/L (10.00-18.00); BUN/Creat Ratio 19.77 Ratio (12.00-20.00); Blood Urea Nitrogen 11.9 mg/dL (9.0-27.0); Calcium 8.6 mg/dL (8.7-10.3); Carbon Dioxide 21.9 mmol/L (20.0-27.5); Globulin 3.8 g/dL (1.6-3.3); Non-African American GFR(CKD) 102.5 (60.0-200.0); Potassium 4.3 mmol/L (3.5-5.5); Total Bilirubin 0.2 mg/dL (0.30-1.20); Total Protein 6.5 g/dL (6.2-8.2)
[2022-06-18] MEDS: ACETAMINOPHEN TAB 325 MG TAB PO PRN (10:59)
[2022-06-18 11:09] LABS: Glucose,Whole Blood 107 mg/dL (70-110)
--- NOTE | 2022-06-18 13:09 | P.DS ---
Providers Date of admission: 06/01/22 12:48 Attending physician: Ken Forbes MD Consults: 05/28/22 19:54 Consult Physician Urgent Consulting Provider: Jania Polo Consult Reason/Comments: uti Do you want consulting provider notified?: Yes 05/29/22 13:18 Consult Physician Routine Consulting Provider: Bull Cloud Consult Reason/Comments: right hip wound , debridemnt and deep cultures Do you want consulting provider notified?: Yes 06/03/22 12:05 Consult Physician Urgent Consulting Provider: Lewis Alvares Consult Reason/Comments: left hip wound, needs debridement Do you want consulting provider notified?: Yes 06/08/22 12:32 Consult Physician Routine Consulting Provider: Bull Cloud Consult Reason/Comments: luke catheter placement Do you want consulting provider notified?: Yes 06/11/22 15:48 Consult Physician Urgent Consulting Provider: Amrit Moss Consult Reason/Comments: rehab eval please Do you want consulting provider notified?: Yes 06/15/22 11:27 Consult Physician Routine Consulting Provider: Giuliana Canada Consult Reason/Comments: persistent diarrhea Do you want consulting provider notified?: Yes Primary care physician: Cooley Dickinson Hospital Course: Diagnoses: Right hip wound pressure ulcer, stage IV status post debridement 06/05 with surrounding and soft tissue infection and cellulitis E coli acute urinary tract infection Group D enterococcus bacteremia Chronic anemia with hemoglobin stable, we recommend colonoscopy as an outpatient Stage IV sacral pressure ulcer, status post debridement Stage III right gluteal pressure ulcer. Ongoing diarrhea since admission, improving. Status post right urostomy History of asthma Diabetes mellitus History of sleep apnea Hospital course: This is a pleasant 56 years old female with multiple medical problems including asthma, diabetes mellitus, GERD, sleep apnea, history of spina bifida and she had a mild formation. Patient is wheelchair bound. who presents with right hip wound pressure ulcer stage IV status post debridement 06/05 by surgery team. Also with evidence of E. coli UTI. Patient also evaluated by ID team as well as surgery team. She is placed on multiple antibiotics including daptomycin, and then it was changed to Invanz over the last few days based upon culture and sensitivity and she was doing well upon that. Also surgery team helped with debridement of the right hip wound as well as placement of right upper chest MediPort which is functioning now. Patient is fully awake and oriented, she denies chest pain or dyspnea, no abdominal pain, no vomiting, she had some diarrhea since admission, rectal tube was placed initially and then removed, Laura was admitted, her diarrhea IMPROVED over the last 2 days she is having once a day. She is diabetic and currently kept on clear liquid diet, patient does not want her diet to be advanced although no contraindication medically (liquid diet per patient request) . Patient able to consume 75-100% of her diet. ABDOMEN LOOKS SOFT. Also patient with mild anemia which looks his stable over the last week, hemoglobin on discharge is 9.2, no signs of active bleeding, no blood per stool, no black stool. Patient says that her last colonoscopy was about 30 years ago, patient was instructed to obtain colonoscopy test as soon as possible for screening purposes. She's been following up with her GI doctor Nancie in the [facility] setting and patient was instructed to follow up with her within 1-2 weeks and she agrees. Also patient informed she can follow-up with surgical team Dr. Walters or Dr. Alvares for purpose of colonoscopy as well as regular surgical problems and also she verbalized understanding and acceptance Patient denies any other symptoms Patient had fever yesterday of 101.1 however ID team cleared her for discharge today. She remains on antibiotics as above. patient is going to be [facility] Patient was cleared for discharge by all consultants including ID team, surgical team. Problems and management plan were discussed with the patient and he verbalized understanding and acceptance Patient was found stable and can be discharged to [facility] prognosis however he needs follow-up as an outpatient. Patient was instructed to follow up with PCP Dr. Noble within one week and patient agrees Patient was instructed to follow up with surgery team Dr. Walters or Dr. Alvares in 1-2 weeks, with GI doctor Nancie in 1-[address] Polo from ID team in one week and patient agrees to call and make appointments Physical exam Gen: patient is a AAOx3, no distress CVS: S1-S2, RRR, no murmur -Lungs: B/L CTA, no wheezing. Right upper chest MediPort -Abdomen: soft, no distention, no tenderness, positive bowel sounds. right lower abdomen urostomy tube functioning Extremity: no leg edema or induration -Musculoskeletal: Right foot wound wound and cellulitis, improving, right gluteal pressure ulcer stage III, sacral pressure ulcer stage IV Time spent more than 35 minutes Patient Condition at Discharge: Fair Plan - Discharge Summary New Discharge Prescriptions: New Ertapenem [INVanz] 1 gm IVPB Q24H #42 each No Action Cetirizine HCl [Zyrtec] 5 mg PO DAILY Omeprazole [PriLOSEC] 20 mg PO DAILY Liraglutide [Victoza 2-Raul] 1.8 mg SQ DAILY allopurinoL [Zyloprim] 300 mg PO DAILY Loperamide [Imodium] 1 - 2 mg PO QID PRN PRN Reason: Diarrhea Glucosamine/Chondr Choi A Sod [Osteo Bi-Flex Caplet] 1 tab PO DAILY Metoprolol Succinate [Toprol XL] 25 mg PO HS Fish Oil/Dha/Epa [Fish Oil 1,200 mg Fish Oil] 1 cap PO DAILY Cranberry Fruit Extract [Cranberry] 500 mg PO DAILY Methenamine Hippurate 1 gm PO BID Ammonium Lactate Cream [Lac-Hydrin 12% Cream] 1 applic TOPICAL BID Nystatin 100,000Unit/gm Cream [Mycostatin Cream] 1 applic TOPICAL BID Multivit with Calcium,Iron,Min [Women's Multivitamin] 1 tab PO DAILY Lactobacillus Acidophilus [Acidophilus] 1 tab PO DAILY Magnesium Oxide [Mag-Ox] 400 mg PO BID 30 Days #60 tab Acetaminophen Tab [Tylenol] 650 mg PO Q6HR PRN tab PRN Reason: Mild Pain Or Fever > 100.5 Torsemide [Demadex] 20 mg PO BID 30 Days #60 tab Potassium Chloride [Klor-Con M20] 40 meq PO DAILY #0 Insulin Degludec [Tresiba Flextouch U-100 Pen] 10 - 20 units SQ HS Discharge Medication List Cetirizine HCl [Zyrtec] 5 mg PO DAILY 10/04/14 [History] Liraglutide [Victoza 2-Raul] 1.8 mg SQ DAILY 10/04/14 [History] Omeprazole [PriLOSEC] 20 mg PO DAILY 10/04/14 [History] allopurinoL [Zyloprim] 300 mg PO DAILY 10/04/14 [History] Glucosamine/Chondr Choi A Sod [Osteo Bi-Flex Caplet] 1 tab PO DAILY 08/09/15 [History] Loperamide [Imodium] 1 - 2 mg PO QID PRN 08/09/15 [History] Metoprolol Succinate [Toprol XL] 25 mg PO HS 08/09/15 [History] Ammonium Lactate Cream [Lac-Hydrin 12% Cream] 1 applic TOPICAL BID 04/23/22 [History] Cranberry Fruit Extract [Cranberry] 500 mg PO DAILY 04/23/22 [History] Fish Oil/Dha/Epa [Fish Oil 1,200 mg Fish Oil] 1 cap PO DAILY 04/23/22 [History] Lactobacillus Acidophilus [Acidophilus] 1 tab PO DAILY 04/23/22 [History] Methenamine Hippurate 1 gm PO BID 04/23/22 [History] Multivit with Calcium,Iron,Min [Women's Multivitamin] 1 tab PO DAILY 04/23/22 [History] Nystatin 100,000Unit/gm Cream [Mycostatin Cream] 1 applic TOPICAL BID 04/23/22 [History] Acetaminophen Tab [Tylenol] 650 mg PO Q6HR PRN tab 04/30/22 [Rx] Magnesium Oxide [Mag-Ox] 400 mg PO BID 30 Days #60 tab 04/30/22 [Rx] Potassium Chloride [Klor-Con M20] 40 meq PO DAILY #0 04/30/22 [Rx] Torsemide [Demadex] 20 mg PO BID 30 Days #60 tab 04/30/22 [Rx] Insulin Degludec [Tresiba Flextouch U-100 Pen] 10 - 20 units SQ HS 05/28/22 [History] Ertapenem [INVanz] 1 gm IVPB Q24H #42 each 06/11/22 [Rx] Follow up Appointment(s)/Referral(s): José Luis Sam, [NON-STAFF] - As Needed Barrington Noble DO [Primary Care Provider] - 1-2 days Jania Polo MD [STAFF PHYSICIAN] - 2 Weeks Ambulatory/Diagnostic Orders: Basic Metabolic Panel [LAB.AMB] Location: None Selected C Reactive Protein [LAB.AMB] Location: None Selected Complete Blood Count w/diff [LAB.AMB] Location: None Selected Erythrocyte Sedimentation Rate [LAB.AMB] Location: None Selected
[2022-06-18 13:21] VITALS: BP 106/63; PULSE 70; RESP 18
--- NOTE | 2022-06-18 20:03 | P.PN ---
Subjective Progress Note Date: 06/18/22 Principal diagnosis: Urinary tract infection and infected right hip wound Patient is a 56 year female past medical history significant for diabetes mellitus recurrent UTI and chronic nonhealing wound to the right hip area admitted to the hospital concerning for wound infection any UTI in this patient had multiple antibiotic ALLERGIES. Patient is status post surgical debridement of her wound completed on 06/05/2022 On today's evaluation that is 06/18/2022, the patient remains to be afebrile, the patient is breathing comfortably on room air, the patient denies chest pain shortness of breath or cough , the patient denies abdominal pain, the patient still complaining of diarrhea no blood or mucus in the stool no pain to the sacral or right gluteal/thigh wound area Objective - Vital Signs Vital signs: Vital Signs Temp 98.4 F 06/18/22 07:17 Pulse 70 06/18/22 13:15 Resp 18 06/18/22 13:15 BP 106/63 06/18/22 13:15 Pulse Ox 96 06/18/22 13:15 FiO2 Intake & Output 06/17/22 06/18/22 06/18/22 18:59 06:59 18:59 Intake Total 200 Output Total 1300 1350 Balance -1300 -1150 Intake: Oral 200 Output: Urine 1300 1350 Stool 0 Other: Voiding Method Self-Catheterization Self-Catheterization Self-Catheterization Ileal Conduit (Right) Ileal Conduit (Right) Ileal Conduit (Right) - Exam GENERAL DESCRIPTION: Middle-aged female lying in bed in no distress RESPIRATORY SYSTEM: Unlabored breathing , decreased breath sounds at bases HEART: S1 S2 regular rate and rhythm , ABDOMEN: Soft , no tenderness EXTREMITIES: Right hip wound is currently dressed, sacral wound currently dressed - Labs CBC & Chem 7: 06/18/22 07:01 06/18/22 07:01 Labs: Abnormal Lab Results - Last 24 Hours (Table) 06/18/22 06/18/22 Range/Units 07:01 07:01 RBC 3.21 L (4.10-5.20) X 10*6/uL Hgb 9.2 L (12.0-15.0) g/dL Hct 30.8 L (37.2-46.3) % MCHC 29.9 L (32.0-37.0) g/dL RDW 17.4 H (11.5-14.5) % Plt Count 546 H (140-440) X 10*3/uL Immature Gran # 0.07 H (0.00-0.04) X 10*3/uL Monocytes # 1.07 H (0.20-1.00) X 10*3/uL Eosinophils # 0.01 L (0.04-0.35) X 10*3/uL Calcium 8.6 L (8.7-10.3) mg/dL Total Bilirubin 0.20 L (0.30-1.20) mg/dL AST 44 H (13-35) U/L Alkaline Phosphatase 147 H (41-126) U/L Albumin 2.7 L (3.8-4.9) g/dL Globulin 3.8 H (1.6-3.3) g/dL Albumin/Globulin Ratio 0.70 L (1.60-3.17) g/dL Assessment and Plan (1) Unspecified open wound, right hip, subsequent encounter Status: Acute Code(s): S71.001D - UNSPECIFIED OPEN WOUND, RIGHT HIP, SUBSEQUENT ENCOUNTER SNOMED Code(s): 89539173465832676 (2) UTI (urinary tract infection) Status: Acute Code(s): N39.0 - URINARY TRACT INFECTION, SITE NOT SPECIFIED SNOMED Code(s): 91360981 Plan: 1patient with multiple antibiotic allergies that would limit the number of antibiotics safe to use. 2patient did have a stage III right gluteal pressure ulcer local care status post debridement and local care to continue to continue with medahoney followed by moist dressing 3patient did have a stage IV sacral pressure ulcer with the bone palpable status post debridement, local wound care to continue with medahoney followed by moist dressing 4 local cultures are growing drug-resistant Enterobacter in addition to E. coli and enterococcus which is penicillin sensitive , patient currently being treated with the Invanz 1 g daily and plan is to finish a total of 6 week course of therapy and a very close outpatient follow-up questions concerned were also discussed with the admitting team, with weekly monitoring of CRP and sed rate CBC CMP Time with Patient: Less than 30
== END 2022-06-18 16:28 | DRG 579 ==
LOC: EC 11:55 → 5NMEDONC 19:09 → OBSVTOIN 06-01 12:48
PROVIDERS: ADMIT Internal Medicine; ATTEND Internal Medicine
PROC: 0KBP0ZZ Excision of Left Hip Muscle, Open Approach (ICD-10-PCS; principal; 2022-06-05 10:25)
PROC: 0KBN0ZZ Excision of Right Hip Muscle, Open Approach (ICD-10-PCS; principal; 2022-06-05 10:25)
PROC: 02HV33Z Insertion of Infusion Device into Superior Vena Cava, Percutaneous Approach (ICD-10-PCS; 2022-06-10)
DX: L02.31 Cutaneous abscess of buttock (principal); L89.154 Pressure ulcer of sacral region, stage 4; L89.214 Pressure ulcer of right hip, stage 4; L89.323 Pressure ulcer of left buttock, stage 3; L89.313 Pressure ulcer of right buttock, stage 3; T83.518A Infection and inflammatory reaction due to other urinary catheter, initial encounter; I96 Gangrene, not elsewhere classified; Q07.03 Arnold-Chiari syndrome with spina bifida and hydrocephalus; G82.22 Paraplegia, incomplete; Z16.19 Resistance to other specified beta lactam antibiotics; L89.322 Pressure ulcer of left buttock, stage 2; E10.649 Type 1 diabetes mellitus with hypoglycemia without coma; J45.909 Unspecified asthma, uncomplicated; I10 Essential (primary) hypertension; L30.8 Other specified dermatitis; R13.10 Dysphagia, unspecified; R26.9 Unspecified abnormalities of gait and mobility; R53.81 Other malaise; G47.30 Sleep apnea, unspecified; K21.9 Gastro-esophageal reflux disease without esophagitis; K52.9 Noninfective gastroenteritis and colitis, unspecified; L22 Diaper dermatitis; M10.9 Gout, unspecified; B96.89 Other specified bacterial agents as the cause of diseases classified elsewhere; B96.20 Unspecified Escherichia coli [E. coli] as the cause of diseases classified elsewhere; Y73.1 Therapeutic (nonsurgical) and rehabilitative gastroenterology and urology devices associated with adverse incidents; Z98.2 Presence of cerebrospinal fluid drainage device; Z87.440 Personal history of urinary (tract) infections; Z79.899 Other long term (current) drug therapy; Z79.4 Long term (current) use of insulin; Z88.0 Allergy status to penicillin; Z91.018 Allergy to other foods; Z88.1 Allergy status to other antibiotic agents; Z91.040 Latex allergy status; Z88.3 Allergy status to other anti-infective agents; Z88.8 Allergy status to other drugs, medicaments and biological substances; Z88.2 Allergy status to sulfonamides; Z91.048 Other nonmedicinal substance allergy status; Z86.14 Personal history of Methicillin resistant Staphylococcus aureus infection; Z87.01 Personal history of pneumonia (recurrent); Z99.3 Dependence on wheelchair
CPT/HCPCS: 36415; 71045; 77001; 80048; 80053; 81001; 82150; 83690; 83735; 84132; 84703; 85025; 85027; 85652; 86140; 87040; 87070; 87075; 87077; 87086; 87186; 87205; 87324; 88304; 96361; 96374; 99284

== ENCOUNTER 2023-06-09 13:39 | Inpatient (IN) | payer MEDICARE, OTHER ==
[2023-06-09] MEDS ORDERED: SODIUM CHLORIDE 0.9% 1,000 ML IV STA ×2 (13:56→20:41)
--- NOTE | 2023-06-09 13:57 | ED ---
Recheck HPI - General Chief Complaint: Recheck/Abnormal Lab/Rx Stated Complaint: infection Time Seen by Provider: 06/09/23 13:56 Source: patient, EMS, RN notes reviewed, old records reviewed, Caregiver Mode of arrival: EMS Limitations: no limitations - History of Present Illness Initial Comments: This is a 57-year-old female for evaluation of urinary tract infection versus increasing sacral decubitus ulcer. Patient's a poor historian history obtained from EMS, patient's prior charting MD Complaint: abnormal lab -: days(s) Returns Today for: Called Because of Abnormal Lab/Test, persistent/worsening pain related to initial visit Symptoms Since Prior Visit: worsening pain Context: planned re-check Associated Symptoms: none - Related Data Home Medications Medication Instructions Recorded Confirmed allopurinoL [Zyloprim] 300 mg PO DAILY 10/04/14 06/09/23 Calcium Carbonate 500 mg PO DAILY 06/09/23 06/09/23 Cholestyramine (with Sugar) 4 gm PO TID PRN 06/09/23 06/09/23 [Questran Packet] Ferrous Sulfate [Iron (65 MG 325 mg PO DAILY 06/09/23 06/09/23 Elemental)] Folic Acid 1 mg PO DAILY 06/09/23 06/09/23 Ibuprofen [Motrin Ib] 400 mg PO Q6H PRN 06/09/23 06/09/23 Lidocaine Viscous 2% [Xylocaine 5 ml MUCOUS MEM Q4H PRN 06/09/23 06/09/23 Viscous] Magnesium Oxide [Mag-Ox] 400 mg PO DAILY 06/09/23 06/09/23 Menthol [Icy Hot] 2 patch TRANSDERM DAILY 06/09/23 06/09/23 Thiamine [Vitamin B-1] 100 mg PO DAILY 06/09/23 06/09/23 hydrOXYzine HCL [Atarax] 25 mg PO Q8HR PRN 06/09/23 06/09/23 Previous Rx's Medication Instructions Recorded Torsemide [Demadex] 20 mg PO BID 30 Days #60 tab 04/30/22 Ertapenem [INVanz] 1 gm IVPB Q24H #42 each 06/18/23 HYDROcodone/APAP 5-325MG [Ceylon 1 tab PO Q4H PRN 3 Days #18 tab 06/18/23 5-325] Lidocaine Viscous 2% [Xylocaine 30 ml PO AC-TID #210 ml 06/18/23 Viscous] Allergies Allergy/AdvReac Type Severity Reaction Status Date / Time amoxicillin trihydrate Allergy Rash/Hives Verified 06/09/23 17:28 [From Augmentin] banana Allergy Unknown Verified 06/09/23 17:28 chestnut Allergy Unknown Verified 06/09/23 17:28 ciprofloxacin [From Cipro] Allergy Rash/Hives Verified 06/09/23 17:28 ciprofloxacin HCl Allergy Rash/Hives Verified 06/09/23 17:28 [From Cipro] kiwi Allergy Unknown Verified 06/09/23 17:28 Latex, Natural Rubber Allergy Anaphylaxis Verified 06/09/23 17:28 methylprednisolone Allergy Rash/Hives Verified 06/09/23 17:28 [From Solu-Medrol] midazolam Allergy Unknown Verified 06/09/23 17:28 nitrofurantoin Allergy Rash/Hives Verified 06/09/23 17:28 macrocrystalline [From Macrodantin] oxacillin Allergy Unknown Verified 06/09/23 17:28 potassium clavulanate Allergy Rash/Hives Verified 06/09/23 17:28 [From Augmentin] Sulfa (Sulfonamide Allergy Rash/Hives Verified 06/09/23 17:28 Antibiotics) vancomycin Allergy Anaphylaxis Verified 06/09/23 17:28 Beef Containing Products AdvReac Diarrhea Verified 06/09/23 17:28 [Beef] sucralose AdvReac Diarrhea Verified 06/09/23 17:28 [From Splenda (sucralose)] callagen Allergy Rash/Hives Uncoded 05/28/22 17:24 Review of Systems ROS Statement: Those systems with pertinent positive or pertinent negative responses have been documented in the HPI. ROS Other: All systems not noted in ROS Statement are negative. Past Medical History Past Medical History: Asthma, Diabetes Mellitus, GERD/Reflux, Musculoskeletal Disorder, Neurologic Disorder, Pneumonia, Renal Disease, Sleep Apnea/CPAP/BIPAP Additional Past Medical History / Comment(s): 08-09-15 admitted with cellulitis of external nose. other pst medical hx includes: hx. 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, MRSA Date of last positivie culture/infection: 07/07/21 MRSA 01/07/15 ESBL MDRO Source:: MRSA BUTTOCK, ESBL LEG Past Surgical History: Back Surgery, Bowel Resection, Orthopedic Surgery Additional Past Surgical History / Comment(s): multiple surgeries for hydrocephalus, urostomy x 2, multiple hip,leg, foot surgeries, ankles fused, [facility] shunt, pt stated back sx was to remove spina bifida growth, egd Past Anesthesia/Blood Transfusion Reactions: No Reported Reaction Past Psychological History: No Psychological Hx Reported Smoking Status: Never smoker Past Alcohol Use History: None Reported Past Drug Use History: None Reported - Past Family History Father Family Medical History: Hypertension Additional Family Medical History / Comment(s): gout, heart murmur, rheumatic fever as child, tia Mother Family Medical History: Cancer, Hypertension Additional Family Medical History / Comment(s): interstitial cystitis, breast cancer x2, diet controlled diabetic, hiatal hernia General Exam Limitations: no limitations General appearance: alert, in no apparent distress, anxious Head exam: Present: atraumatic, normocephalic, normal inspection Eye exam: Present: normal appearance, PERRL, EOMI. Absent: scleral icterus, conjunctival injection, periorbital swelling ENT exam: Present: normal exam, mucous membranes moist Neck exam: Present: normal inspection. Absent: tenderness, meningismus, lymphadenopathy Respiratory exam: Present: normal lung sounds bilaterally. Absent: respiratory distress, wheezes, rales, rhonchi, stridor Cardiovascular Exam: Present: regular rate, normal rhythm, normal heart sounds. Absent: systolic murmur, diastolic murmur, rubs, gallop, clicks GI/Abdominal exam: Present: soft, normal bowel sounds. Absent: distended, tenderness, guarding, rebound, rigid Extremities exam: Present: normal inspection, full ROM, normal capillary refill. Absent: tenderness, pedal edema, joint swelling, calf tenderness Back exam: Present: normal inspection Neurological exam: Present: alert, oriented X3, CN II-XII intact Psychiatric exam: Present: normal affect, normal mood Skin exam: Present: warm, dry, intact, normal color. Absent: rash Course Vital Signs 06/09/23 06/09/23 06/09/23 13:41 18:05 19:23 Temperature 97.6 F 98.3 F 98.6 F Pulse Rate 91 92 93 Respiratory 18 16 18 Rate Blood Pressure 94/60 92/57 85/55 O2 Sat by Pulse 97 96 97 Oximetry 06/09/23 06/09/23 06/09/23 20:00 21:00 21:30 Temperature Pulse Rate 95 Respiratory 18 20 Rate Blood Pressure 80/45 83/52 95/55 O2 Sat by Pulse 97 97 Oximetry 06/09/23 06/09/23 06/09/23 21:38 22:12 22:36 Temperature Pulse Rate 93 98 100 Respiratory 20 22 Rate Blood Pressure 97/63 92/54 91/63 O2 Sat by Pulse 98 96 97 Oximetry 06/09/23 23:50 Temperature 97.3 F L Pulse Rate 109 H Respiratory 20 Rate Blood Pressure 92/57 O2 Sat by Pulse 95 Oximetry - Reevaluation(s) Reevaluation #1: 06/09/23 21:31 medical records reviewed Reevaluation #2: 06/09/23 21:31 Patient symptoms are unchanged Reevaluation #3: 06/09/23 21:31 patient informed results questions answered Reevaluation #4: 06/09/23 21:09 Was pt. sent in by a medical professional or institution (, PA, BLOOD AND PLASMA LABORATORY ASSISTANT, urgent care, hospital, or senior living...) When possible be specific @ -no Did you speak to anyone other than the patient for history (EMS, parent, family, police, friend...)? What history was obtained from this source @ -no Did you review nursing and triage notes (agree or disagree)? Why? @ -agree Are old charts reviewed (outside hosp., previous admission, EMS record, old EKG, old radiological studies, urgent care reports/EKG's, senior living records)? Report findings @ -yes Differential Diagnosis (chest pain, altered mental status, abdominal pain women, abdominal pain men, vaginal bleeding, weakness, fever, dyspnea, syncope, headache, dizziness, GI bleed, back pain, seizure, CVA, palpatations, mental health, musculoskeletal)? @ -prior EKG interpreted by me (3pts min.). @ -yes X-rays interpreted by me (1pt min.). @ -no CT interpreted by me (1pt min.). @ -Yes positive for sacral decubitus ulcer U/S interpreted by me (1pt. min.). @ -no What testing was considered but not performed or refused? (CT, X-rays, U/S, labs)? Why? @ -none What meds were considered but not given or refused? Why? @ -none Did you discuss the management of the patient with other professionals (professionals i.e. Dr., PA, BLOOD AND PLASMA LABORATORY ASSISTANT, lab, RT, psych nurse, social work job titles, electric meter setter, teacher, service officer, case management director)? Give summary @ -no Was smoking cessation discussed for >3mins.? @ -no Was critical care preformed (if so, how long)? @ -no Were there social determinants of health that impacted care today? How? (Homelessness, low income, unemployed, alcoholism, drug addiction, transportation, low edu. Level, literacy, decrease access to med. care, custodial, rehab)? @ -none Was there de-escalation of care discussed even if they declined (Discuss DNR or withdrawal of care, Hospice)? DNR status @ -no What co-morbidities impacted this encounter? (DM, HTN, Smoking, COPD, CAD, Cancer, CVA, ARF, Chemo, Hep., AIDS, mental health diagnosis, sleep apnea, morbid obesity)? @ -none Was patient admitted / discharged? Hospital course, mention meds given and route, prescriptions, significant lab abnormalities, going to OR and other pertinent info. @ - 57 female to be admitted for IV antibiotics and wound care regarding sacral decubitus ulcer secondary to immobility from spina bifida, patient also has indwelling Reyna with severe urinary tract infection Admitted Undiagnosed new problem with uncertain prognosis? @ -no Drug Therapy requiring intensive monitoring for toxicity (Heparin, Nitro, Insulin, Cardizem)? @ -no Were any procedures done? @ -no Diagnosis/symptom? @ -Sacral decubitus ulcer chronic and urinary tract infection Acute, or Chronic, or Acute on Chronic? @ -Acute Uncomplicated (without systemic symptoms) or Complicated (systemic symptoms)? @ -Complicated Side effects of treatment? @ -no Exacerbation, Progression, or Severe Exacerbation? @ -exacerbation Poses a threat to life or bodily function? How? (Chest pain, USA, MN, pneumonia, PE, COPD, DKA, ARF, appy, cholecystitis, CVA, Diverticulitis, Homicidal, S uicidal, threat to staff... and all critical care pts) @ -yes significant debility with chronic sepsis Reevaluation #5: Differential Weakness: Hypoglycemia, shock, sepsis, hyponatremia, anemia, infection, MN, ETOH, adverse medicine reaction, overdose, stroke, this is not meant to be an all-inclusive list. - Consultations Consultation #1: spoke with admitting Primary physicians agree to admit this patient Medical Decision Making - Medical Decision Making 57 female to be admitted for IV antibiotics and wound care regarding sacral decubitus ulcer secondary to immobility from spina bifida, patient also has indwelling Reyna with severe urinary tract infection - Lab Data Result diagrams: 06/18/23 06:01 06/18/23 06:01 Lab Results 06/09/23 06/09/23 06/09/23 Range/Units 14:40 14:40 14:40 WBC 26.4 H (3.8-10.6) k/uL RBC 2.75 L (3.80-5.40) m/uL Hgb 7.3 L (11.4-16.0) gm/dL Hct 24.8 L (34.0-46.0) % MCV 90.2 (80.0-100.0) fL MCH 26.5 (25.0-35.0) pg MCHC 29.3 L (31.0-37.0) g/dL RDW 18.8 H (11.5-15.5) % Plt Count 462 H (150-450) k/uL MPV 8.2 Neutrophils % (Manual) 87 % Band Neuts % (Manual) 7 % Lymphocytes % (Manual) 5 % Monocytes % (Manual) 1 % Neutrophils # (Manual) 24.80 H (1.3-7.7) k/uL Lymphocytes # (Manual) 1.32 (1.0-4.8) k/uL Monocytes # (Manual) 0.26 (0-1.0) k/uL Nucleated RBCs 0 (0-0) /100 WBC Manual Slide Review Performed Toxic Granulation Present Toxic Vacuolation Present Hypochromasia Marked Anisocytosis Slight PT 11.5 (10.0-12.5) sec INR 1.1 (<1.2) APTT 31.0 H (22.0-30.0) sec Sodium 134 L (137-145) mmol/L Potassium 5.2 H (3.5-5.1) mmol/L Chloride 106 (98-107) mmol/L Carbon Dioxide 11 L (22-30) mmol/L Anion Gap 17 mmol/L BUN 79 H (7-17) mg/dL Creatinine 3.04 H (0.52-1.04) mg/dL Est GFR (CKD-EPI)AfAm 19 (>60 ml/min/1.73 sqM) Est GFR (CKD-EPI)NonAf 16 (>60 ml/min/1.73 sqM) Glucose 166 H (74-99) mg/dL Plasma Lactic Acid Miles (0.7-2.0) mmol/L Calcium 8.7 (8.4-10.2) mg/dL Phosphorus 5.5 H (2.5-4.5) mg/dL Magnesium 1.7 (1.6-2.3) mg/dL Total Bilirubin 0.3 (0.2-1.3) mg/dL AST 31 (14-36) U/L ALT 22 (4-34) U/L Alkaline Phosphatase 255 H (38-126) U/L Troponin I (0.000-0.034) ng/mL NT-Pro-B Natriuret Pep 3850 pg/mL Total Protein 7.3 (6.3-8.2) g/dL Albumin 2.6 L (3.5-5.0) g/dL 06/09/23 06/09/23 Range/Units 14:40 14:40 WBC (3.8-10.6) k/uL RBC (3.80-5.40) m/uL Hgb (11.4-16.0) gm/dL Hct (34.0-46.0) % MCV (80.0-100.0) fL MCH (25.0-35.0) pg MCHC (31.0-37.0) g/dL RDW (11.5-15.5) % Plt Count (150-450) k/uL MPV Neutrophils % (Manual) % Band Neuts % (Manual) % Lymphocytes % (Manual) % Monocytes % (Manual) % Neutrophils # (Manual) (1.3-7.7) k/uL Lymphocytes # (Manual) (1.0-4.8) k/uL Monocytes # (Manual) (0-1.0) k/uL Nucleated RBCs (0-0) /100 WBC Manual Slide Review Toxic Granulation Toxic Vacuolation Hypochromasia Anisocytosis PT (10.0-12.5) sec INR (<1.2) APTT (22.0-30.0) sec Sodium (137-145) mmol/L Potassium (3.5-5.1) mmol/L Chloride (98-107) mmol/L Carbon Dioxide (22-30) mmol/L Anion Gap mmol/L BUN (7-17) mg/dL Creatinine (0.52-1.04) mg/dL Est GFR (CKD-EPI)AfAm (>60 ml/min/1.73 sqM) Est GFR (CKD-EPI)NonAf (>60 ml/min/1.73 sqM) Glucose (74-99) mg/dL Plasma Lactic Acid Miles 1.2 (0.7-2.0) mmol/L Calcium (8.4-10.2) mg/dL Phosphorus (2.5-4.5) mg/dL Magnesium (1.6-2.3) mg/dL Total Bilirubin (0.2-1.3) mg/dL AST (14-36) U/L ALT (4-34) U/L Alkaline Phosphatase (38-126) U/L Troponin I <0.012 (0.000-0.034) ng/mL NT-Pro-B Natriuret Pep pg/mL Total Protein (6.3-8.2) g/dL Albumin (3.5-5.0) g/dL - EKG Data -: EKG Interpreted by Me (EKG is sinus 88 OH 122 QRS or long QTC 432) - Radiology Data Radiology results: report reviewed (CT of the abdomen and pelvis Show significant decubitus ulcer), image reviewed Disposition Clinical Impression: UTI (urinary tract infection), Pressure ulcer of left buttock, stage 3, Spina bifida, Sepsis, Stage II pressure ulcer of sacral region, Stage III pressure ulcer of right buttock, Stage II pressure ulcer of left buttock Disposition: ADMITTED IP TO THIS [facility] Condition: Good Is patient prescribed a controlled substance at d/c from ED?: No Time of Disposition: 20:40
[2023-06-09 15:01] LABS: Anisocytosis Slight; HCT 24.8 % (34.0-46.0); HGB 7.3 gm/dL (11.4-16.0); Hypochromasia Marked; MCH 26.5 pg (25.0-35.0); MCHC 29.3 g/dL (31.0-37.0); MCV 90.2 fL (80.0-100.0); Mean Platelet Volume 8.2; Platelet Count 462 k/uL (150-450); RBC 2.75 m/uL (3.80-5.40); RDW 18.8 % (11.5-15.5); WBC 26.4 k/uL (3.8-10.6)
[2023-06-09 15:16] LABS: INR 1.1 (<1.2); Prothrombin Time 11.5 sec (10.0-12.5)
[2023-06-09 15:31] LABS: Band Neutrophils % 7 %; Lymphocytes # (M) 1.32 k/uL (1.0-4.8); Monocytes # (M) 0.26 k/uL (0-1.0); Neutrophils % (M) 87 %; Nucleated Red Blood Cells 0 /100 WBC (0-0); Total Cells Counted 100
[2023-06-09 15:46] LABS: Toxic Granulation Present; Toxic Vacuolation Present
[2023-06-09 16:51] LABS: ALT 22 U/L (4-34); AST 31 U/L (14-36); Albumin 2.6 g/dL (3.5-5.0); Alkaline Phosphatase 255 U/L (38-126); Anion Gap 17 mmol/L; Blood Urea Nitrogen 79 mg/dL (7-17); Calcium 8.7 mg/dL (8.4-10.2); Carbon Dioxide 11 mmol/L (22-30); Chloride 106 mmol/L (98-107); Glucose 166 mg/dL (74-99); Magnesium 1.7 mg/dL (1.6-2.3); Phosphorus 5.5 mg/dL (2.5-4.5); Potassium 5.2 mmol/L (3.5-5.1); Sodium 134 mmol/L (137-145); Total Bilirubin 0.3 mg/dL (0.2-1.3); Total Protein 7.3 g/dL (6.3-8.2)
[2023-06-09 16:56] LABS: African American GFR (CKD) 19 (>60 ml/min/1.73 sqM); Non-African American GFR(CKD) 16 (>60 ml/min/1.73 sqM)
[2023-06-09 16:59] LABS: NT-Pro-B-Type Natriuretic Pept 3850 pg/mL
[2023-06-09] MEDS ORDERED: ONDANSETRON 4 MG/2 ML VIAL IVP PRN (20:38)
[2023-06-09] MEDS ORDERED: NALOXONE 0.4 MG/ML 1 ML VIAL IV PRN (20:38)
[2023-06-09] MEDS ORDERED: CLINDAMYCIN 600 MG in DEXTROSE 5% IN WATER 50 ML IVPB STA ×2 (20:40)
[2023-06-09] MEDS: SODIUM CHLORIDE 0.9% 1,000 ML IV SCH (21:10)
--- NOTE | 2023-06-09 21:11 | CT ---
EXAMINATION TYPE: CT abdomen pelvis wo con CT DLP: 710.8 mGycm, Automated exposure control for dose reduction was used. DATE OF EXAM: 06/09/2023 6:22 PM COMPARISON: CLINICAL INDICATION:Female, 57 years old with history of pain; ams, abdominal pain TECHNIQUE: Axial CT of the abdomen and pelvis. Sagittal and coronal reformats were created on a [employer] [facility] workstation. Contrast used: mL of , (none if empty) Oral contrast used: without Oral Contrast (none if empty) FINDINGS: Exam is limited without IV contrast, and by patient body habitus. LOWER CHEST: Subsegmental atelectatic changes and/or scarring in the lung bases. The heart appears mi ldly enlarged. Radiodensity seen associated with the SVC above the right atrium, may represent cathet er termination point. Ascending aorta appears ectatic up to about 3.6 cm. Main pulmonary artery borde rline prominent at 2.9 cm. ABDOMEN: Evaluation is limited without contrast, and streak artifacts due to patient arm position. LIVER: No gross abnormality. GALLBLADDER AND BILE DUCTS: Gallbladder appears distended, up to 4.5 cm transverse, without calcified gallstones seen. No significant biliary dilatation identified. PANCREAS: Diffuse fatty infiltration without acute finding SPLEEN: Unremarkable. ADRENAL GLANDS: Mildly thickened on the left. No mass. KIDNEYS AND URETERS: Kidneys appear enlarged and multicystic. No definite calculi on the left. In the lower pole right kidney there is a round 1.4 cm calcification. The renal pelves are moderately to se verely dilated, the ureters are mildly to severely dilated and quite tortuous throughout. These appea r to connect with the neobladder in the right lower quadrant. No ureteral or neobladder calculi are s een. Anterior right lower quadrant ostomy noted. PELVIS BLADDER: [employer] [place] bladder appears absent. REPRODUCTIVE: Uterus appears to be present but its upper end appears somewhat truncated, postoperativ e change or some element of prolapse could be present. ABDOMEN & PELVIS STOMACH AND BOWEL: Stomach and small bowel are nondistended, no evidence of obstruction. There is a m oderate to large amount of stool throughout the colon. Anastomosis seen in the cecal region. No focal acute abnormality is seen. Appendix not seen, may may be surgically absent. . PERITONEUM/RETROPERITONEUM: No evidence of pneumoperitoneum or free fluid. VASCULATURE: Mild atherosclerotic calcifications are present throughout the abdominal aorta and its b ranches. No evidence of aortic aneurysm. LYMPH NODES: No gross evidence for lymphadenopathy. MUSCULOSKELETAL, SOFT TISSUE/BODY WALL: Deep sacral decubitus ulcer with chronic appearing deformity and erosion of the distal sacrum. Some linear increased attenuation across the soft tissues in the ar ea may represent calcifications and/or dressing material. Spina bifida noted at the L4 L5 S1 levels. Deep decubitus ulcer posterior to the right inferior pelvis which appears to extend down to the level of the ischial tuberosity with small foci of soft tissue gas abutting the bone. No gross osseous ed truction is seen. No acute pelvic fracture is identified. There are severe chronic deformities of the bilateral hip joints with hip joint effusions. Pelvic bones otherwise appear grossly intact but the posterior aspect of the iliac bones also appear abutted by the sacral decubitus ulcer, without gross osseous destructive change. Otherwise there is mild to moderate multilevel degenerative disc disease throughout the visualized spine without clear evidence of fracture. There is some mild endplate irreg ularity noted at the T10-T11 level. IMPRESSION: 1. No clearly acute abnormality demonstrated to explain the patient's symptoms. 2. Distended gallbladder. If concern for development of acute cholecystitis, ultrasound or HIDA may be obtained. 3. Deep sacral decubitus and right decubitus ulcers, with chronic appearing underlying bony changes likely related to chronic osteomyelitis. Severe chronic degenerative changes of the hips with joint e ffusions. 4. Mild/moderate degenerative changes of the visualized spine with mild endplate irregularity at T10 -T11 likely due to degenerative change but if concern for osteomyelitis MRI could be obtained. 5. Multiple other chronic and likely incidental findings as above.
[2023-06-09 21:26] LABS: Appearance,Urine Turbid (Clear); Color,Urine Light Yellow
[2023-06-09 21:27] LABS: Bilirubin,Urine Negative (Negative); Blood,Urine Large (Negative); Glucose,Urine (UA) Negative (Negative); Ketones,Urine Trace (Negative); PH, Urine 7.5 (5.0-8.0); Protein,Urine 3+ (Negative); Specific Gravity,Urine 1.025 (1.001-1.035); Urobilinogen,Urine <2.0 mg/dL (<2.0)
[2023-06-09 21:28] LABS: Leukocyte Esterase,Urine Moderate (Negative); Nitrite,Urine Negative (Negative)
[2023-06-09 21:32] LABS: Bacteria,Urine Many /hpf; WBC,Urine >182 /hpf (0-5)
[2023-06-09] MEDS: MORPHINE SULFATE 4 MG/ML SYRINGE IV PRN (22:32)
[2023-06-09] MEDS: CLINDAMYCIN 600 MG in DEXTROSE 5% IN WATER 50 ML IVPB SCH ×2 (23:22)
[2023-06-10 01:01] LABS: Glucose,Whole Blood 89 mg/dL (70-110)
[2023-06-10] MEDS: MORPHINE SULFATE 4 MG/ML SYRINGE IV PRN (03:27)
[2023-06-10 07:54] LABS: Glucose,Whole Blood 99 mg/dL (70-110)
[2023-06-10 08:37] LABS: Blood Urea Nitrogen 69.1 mg/dL (9.0-27.0); Chloride 112 mmol/L (96-109); Glucose 89 mg/dL (70-110); Potassium 4.1 mmol/L (3.5-5.5); Sodium 137 mmol/L (135-145)
[2023-06-10 08:38] LABS: ALT 14 U/L (8-44); AST 18 U/L (13-35); Albumin/Globulin Ratio 0.48 Ratio (1.60-3.17); Alkaline Phosphatase 210 U/L (41-126); Carbon Dioxide 11.8 mmol/L (21.6-31.8); Globulin 4.2 g/dL (1.6-3.3); Magnesium 1.7 mg/dL (1.5-2.4); Phosphorus 4.1 mg/dL (2.4-5.1); Total Bilirubin <0.2 mg/dL (0.3-1.2); Total Protein 6.2 g/dL (6.2-8.2)
[2023-06-10 08:48] LABS: Basophils # (A) 0.03 X 10*3/uL (0.00-0.10); Basophils % (A) 0.1 %; Eosinophils # (A) 0.01 X 10*3/uL (0.04-0.35); Eosinophils % (A) 0 %; HCT 22.2 % (37.2-46.3); HGB 6.3 g/dL (12.0-15.0); Lymphocytes % (A) 7.9 %; MCH 25.4 pg (27.0-32.0); MCHC 28.4 g/dL (32.0-37.0); MCV 89.5 FL (80.0-97.0); Mean Platelet Volume 9.6 FL (9.5-12.2); Monocytes # (A) 0.82 X 10*3/uL (0.20-1.00); Monocytes % (A) 4.1 %; NRBC Per 100 WBC 0.02 X 10*3/uL (0.00-0.01); Neutrophils # (A) 17.47 X 10*3/uL (1.80-7.70); Neutrophils % (A) 86.7 %; Platelet Count 360 X 10*3/uL (140-440); RBC 2.48 X 10*6/uL (4.10-5.20); RDW 19.7 % (11.5-14.5); WBC 20.17 X 10*3/uL (4.50-10.00)
[2023-06-10] MEDS: PANTOPRAZOLE 40 MG/10 ML VIAL IV SCH (09:12)
[2023-06-10] MEDS ORDERED: hydrOXYzine HCL 25 MG TAB PO PRN (10:22)
[2023-06-10] MEDS ORDERED: CHOLESTYRAMINE (WITH SUGAR) 4 GM PACKET PO PRN (10:22)
[2023-06-10] MEDS: SODIUM CHLORIDE 0.9% 1,000 ML IV SCH (11:03)
[2023-06-10] MEDS: MEROPENEM 500 MG in SODIUM CHLORIDE 0.9% 100 ML IVPB SCH (11:06)
[2023-06-10 12:06] LABS: Glucose,Whole Blood 106 mg/dL (70-110)
--- NOTE | 2023-06-10 12:15 | P.CONS ---
History of Present Illness - Reason for Consult Consult date: 06/10/23 wound care - History of Present Illness His is a 57-year-old patient was a resident of [facility] being seen for a stage IV pressure ulcer to the sacral region and a stage IV pressure ulcer to the right trochanter. Patient's past medical history significant for diabetes, spina bifida, sleep apnea, wheelchair-bound. Patient is a poor historian. However she does state that she had a negative pressure wound VAC in place previously. Patient has a sacral ulceration measuring approximately 5 x 10 x 1 cm width undermining noted. The ulceration has bone exposed with significant amount of slough and minimal granulation. The periwound shows excoriation and maceration. The wound edges are rolled. Right trochanter ulceration measures approximately 4 x 4 by 1 cm with tunneling noted at 11:00. Unsure if it communicates to the sacral ulceration. Ulceration has significant amount of necrotic tissue no granulation stable throughout the wound bed. Review Of Systems: Constitutional: No fever, no chills, no night sweats. No weight change. No weakness, fatigue or lethargy. No daytime sleepiness. Integumentary:reports wounds, no lesions. No rash or pruritus. No unusual bruising. No change in hair or nails. Physical exam: General Appearance: Alert, cooperative, no distress, appears stated age. Skin: See HPI all other Skin color, texture, tugor normal, no rashes or lesions. Neurologic: Alert oriented x3 Assessment: 1. Stage IV pressure ulcer sacral 2. Stage IV pressure ulcer right hip 3. Diabetes with skin ulceration Plan: 1.Sacral ulceration: Apply absorptive silver moistened, Kerlix for packing as needed ABDs secure tape. Right trochanter: Apply honey gel, dry gauze and ABD. May change outer dressings as needed. Turn patient every 2 hours. Thank you for the consultation and since his contact the wound care center DNP note has been reviewed and discussed with Dr. Aldridge and the impression and plan of care has been directed as dictated. Past Medical History Past Medical History: Asthma, Diabetes Mellitus, GERD/Reflux, Musculoskeletal Di sorder, Neurologic Disorder, Pneumonia, Renal Disease, Sleep Apnea/CPAP/BIPAP Additional Past Medical History / Comment(s): 08-09-15 admitted with cellulitis of external nose. other pst medical hx includes: hx. 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 ESBL MDRO Source:: MRSA BUTTOCK, ESBL LEG Past Surgical History: Back Surgery, Bowel Resection, Orthopedic Surgery Additional Past Surgical History / Comment(s): multiple surgeries for hydrocephalus, urostomy x 2, multiple hip,leg, foot surgeries, ankles fused, VA shunt, pt stated back sx was to remove spina bifida growth, egd Past Anesthesia/Blood Transfusion Reactions: No Reported Reaction Past Psychological History: No Psychological Hx Reported Smoking Status: Never smoker Past Alcohol Use History: None Reported Past Drug Use History: None Reported - Past Family History Father Family Medical History: Hypertension Additional Family Medical History / Comment(s): gout, heart murmur, rheumatic fever as child, tia Mother Family Medical History: Cancer, Hypertension Additional Family Medical History / Comment(s): interstitial cystitis, breast cancer x2, diet controlled diabetic, hiatal hernia Medications and Allergies Home Medications Medication Instructions Recorded Confirmed Type allopurinoL [Zyloprim] 300 mg PO DAILY 10/04/14 06/09/23 History Torsemide [Demadex] 20 mg PO BID 30 Days #60 tab 04/30/22 06/09/23 Rx Calcium Carbonate 500 mg PO DAILY 06/09/23 06/09/23 History Cholestyramine (with Sugar) 4 gm PO TID PRN 06/09/23 06/09/23 History [Questran Packet] Ferrous Sulfate [Feosol] 325 mg PO DAILY 06/09/23 06/09/23 History Folic Acid 1 mg PO DAILY 06/09/23 06/09/23 History HYDROcodone/APAP 5-325MG [[place] 1 tab PO Q4H PRN 06/09/23 06/09/23 History 5-325] Ibuprofen [Motrin Ib] 400 mg PO Q6H PRN 06/09/23 06/09/23 History Lidocaine Viscous 2% [Xylocaine 5 ml MUCOUS MEM Q4H PRN 06/09/23 06/09/23 History Viscous] Magnesium Oxide [Mag-Ox] 400 mg PO DAILY 06/09/23 06/09/23 History Menthol [Icy Hot] 2 patch TRANSDERM DAILY 06/09/23 06/09/23 History Thiamine [Vitamin B-1] 100 mg PO DAILY 06/09/23 06/09/23 History hydrOXYzine HCL [Atarax] 25 mg PO Q8HR PRN 06/09/23 06/09/23 History Allergies Allergy/AdvReac Type Severity Reaction Status Date / Time amoxicillin trihydrate Allergy Rash/Hives Verified 06/09/23 17:28 [From Augmentin] banana Allergy Unknown Verified 06/09/23 17:28 chestnut Allergy Unknown Verified 06/09/23 17:28 ciprofloxacin [From Cipro] Allergy Rash/Hives Verified 06/09/23 17:28 ciprofloxacin HCl Allergy Rash/Hives Verified 06/09/23 17:28 [From Cipro] kiwi Allergy Unknown Verified 06/09/23 17:28 Latex, Natural Rubber Allergy Anaphylaxis Verified 06/09/23 17:28 methylprednisolone Allergy Rash/Hives Verified 06/09/23 17:28 [From Solu-Medrol] midazolam Allergy Unknown Verified 06/09/23 17:28 nitrofurantoin Allergy Rash/Hives Verified 06/09/23 17:28 macrocrystalline [From Macrodantin] oxacillin Allergy Unknown Verified 06/09/23 17:28 potassium clavulanate Allergy Rash/Hives Verified 06/09/23 17:28 [From Augmentin] Sulfa (Sulfonamide Allergy Rash/Hives Verified 06/09/23 17:28 Antibiotics) vancomycin Allergy Anaphylaxis Verified 06/09/23 17:28 Beef Containing Products AdvReac Diarrhea Verified 06/09/23 17:28 [Beef] sucralose AdvReac Diarrhea Verified 06/09/23 17:28 [From Splenda (sucralose)] callagen Allergy Rash/Hives Uncoded 05/28/22 17:24 Physical Exam Vitals: Vital Signs Temp Pulse Pulse Resp BP BP Pulse Ox 06/10/23 07:32 98.4 F 118 H 20 92/84 97 06/10/23 03:30 103/68 06/10/23 01:06 98.4 F 106 H 18 94/58 94 L 06/09/23 23:50 97.3 F L 109 H 20 92/57 95 06/09/23 22:36 100 91/63 97 06/09/23 22:12 98 22 92/54 96 06/09/23 21:38 93 20 97/63 98 06/09/23 21:30 20 95/55 97 06/09/23 21:00 83/52 06/09/23 20:00 95 18 80/45 97 06/09/23 19:23 98.6 F 93 18 85/55 97 06/09/23 18:05 98.3 F 92 16 92/57 96 06/09/23 13:41 97.6 F 91 18 94/60 97 Intake and Output 06/09/23 06/10/23 06/10/23 22:59 06:59 14:59 Output Total 800 Balance -800 Output: Drainage 800 Abdomen 800 Other: Voiding Method Ileal Conduit (Right) Ileal Conduit (Right) Weight 140 kg Results CBC & Chem 7: 06/10/23 05:16 06/10/23 05:16 Labs: Abnormal Lab Results - Last 24 Hours (Table) 06/09/23 06/09/23 06/09/23 Range/Units 14:40 14:40 14:40 WBC 26.4 H (3.8-10.6) k/uL RBC 2.75 L (3.80-5.40) m/uL Hgb 7.3 L (11.4-16.0) gm/dL Hct 24.8 L (34.0-46.0) % MCH (27.0-32.0) pg MCHC 29.3 L (31.0-37.0) g/dL RDW 18.8 H (11.5-15.5) % Plt Count 462 H (150-450) k/uL Immature Gran # (0.00-0.04) X 10*3/uL Neutrophils # (1.80-7.70) X 10*3/uL Neutrophils # (Manual) 24.80 H (1.3-7.7) k/uL Eosinophils # (0.04-0.35) X 10*3/uL NRBC/100 WBC Diff (0.00-0.01) X 10*3/uL APTT 31.0 H (22.0-30.0) sec Sodium 134 L (137-145) mmol/L Potassium 5.2 H (3.5-5.1) mmol/L Chloride (96-109) mmol/L Carbon Dioxide 11 L (22-30) mmol/L Anion Gap (4.00-12.00) mmol/L BUN 79 H (7-17) mg/dL Creatinine 3.04 H (0.52-1.04) mg/dL Est GFR (CKD-EPI) (>=60) BUN/Creatinine Ratio (12.00-20.00) Ratio Glucose 166 H (74-99) mg/dL Calcium (8.7-10.3) mg/dL Phosphorus 5.5 H (2.5-4.5) mg/dL Total Bilirubin (0.3-1.2) mg/dL Alkaline Phosphatase 255 H (38-126) U/L Albumin 2.6 L (3.5-5.0) g/dL Globulin (1.6-3.3) g/dL Albumin/Globulin Ratio (1.60-3.17) Ratio Urine Appearance (Clear) Urine Protein (Negative) Urine Blood (Negative) Ur Leukocyte Esterase (Negative) Urine WBC (0-5) /hpf Urine WBC Clumps (None) /hpf Urine Bacteria (None) /hpf Crossmatch 06/09/23 06/10/23 06/10/23 Range/Units 20:45 05:16 05:16 WBC 20.17 H (3.8-10.6) k/uL RBC 2.48 L (3.80-5.40) m/uL Hgb 6.3 A* (11.4-16.0) gm/dL Hct 22.2 L (34.0-46.0) % MCH 25.4 L (27.0-32.0) pg MCHC 28.4 L (31.0-37.0) g/dL RDW 19.7 H (11.5-15.5) % Plt Count (150-450) k/uL Immature Gran # 0.24 H (0.00-0.04) X 10*3/uL Neutrophils # 17.47 H (1.80-7.70) X 10*3/uL Neutrophils # (Manual) (1.3-7.7) k/uL Eosinophils # 0.01 L (0.04-0.35) X 10*3/uL NRBC/100 WBC Diff 0.02 H (0.00-0.01) X 10*3/uL APTT (22.0-30.0) sec Sodium (137-145) mmol/L Potassium (3.5-5.1) mmol/L Chloride 112 H (96-109) mmol/L Carbon Dioxide 11.8 L (22-30) mmol/L Anion Gap 13.20 H (4.00-12.00) mmol/L BUN 69.1 H (7-17) mg/dL Creatinine 2.1 H (0.52-1.04) mg/dL Est GFR (CKD-EPI) 27 L (>=60) BUN/Creatinine Ratio 32.90 H (12.00-20.00) Ratio Glucose (74-99) mg/dL Calcium 8.0 L (8.7-10.3) mg/dL Phosphorus (2.5-4.5) mg/dL Total Bilirubin <0.2 L (0.3-1.2) mg/dL Alkaline Phosphatase 210 H (38-126) U/L Albumin 2.0 L (3.5-5.0) g/dL Globulin 4.2 H (1.6-3.3) g/dL Albumin/Globulin Ratio 0.48 L (1.60-3.17) Ratio Urine Appearance Turbid H (Clear) Urine Protein 3+ H (Negative) Urine Blood Large H (Negative) Ur Leukocyte Esterase Moderate H (Negative) Urine WBC >182 H (0-5) /hpf Urine WBC Clumps Many H (None) /hpf Urine Bacteria Many H (None) /hpf Crossmatch 06/10/23 Range/Units 10:26 WBC (3.8-10.6) k/uL RBC (3.80-5.40) m/uL Hgb (11.4-16.0) gm/dL Hct (34.0-46.0) % MCH (27.0-32.0) pg MCHC (31.0-37.0) g/dL RDW (11.5-15.5) % Plt Count (150-450) k/uL Immature Gran # (0.00-0.04) X 10*3/uL Neutrophils # (1.80-7.70) X 10*3/uL Neutrophils # (Manual) (1.3-7.7) k/uL Eosinophils # (0.04-0.35) X 10*3/uL NRBC/100 WBC Diff (0.00-0.01) X 10*3/uL APTT (22.0-30.0) sec Sodium (137-145) mmol/L Potassium (3.5-5.1) mmol/L Chloride (96-109) mmol/L Carbon Dioxide (22-30) mmol/L Anion Gap (4.00-12.00) mmol/L BUN (7-17) mg/dL Creatinine (0.52-1.04) mg/dL Est GFR (CKD-EPI) (>=60) BUN/Creatinine Ratio (12.00-20.00) Ratio Glucose (74-99) mg/dL Calcium (8.7-10.3) mg/dL Phosphorus (2.5-4.5) mg/dL Total Bilirubin (0.3-1.2) mg/dL Alkaline Phosphatase (38-126) U/L Albumin (3.5-5.0) g/dL Globulin (1.6-3.3) g/dL Albumin/Globulin Ratio (1.60-3.17) Ratio Urine Appearance (Clear) Urine Protein (Negative) Urine Blood (Negative) Ur Leukocyte Esterase (Negative) Urine WBC (0-5) /hpf Urine WBC Clumps (None) /hpf Urine Bacteria (None) /hpf Crossmatch See Detail Microbiology - Last 24 Hours (Table) 06/09/23 14:40 Blood Culture Gram Stain - Preliminary Blood Assessment and Plan (1) Pressure injury of sacral region, stage 4 Current Visit: Yes Status: Acute Code(s): L89.154 - PRESSURE ULCER OF SACRAL REGION, STAGE 4 SNOMED Code(s): 16138016681959 (2) Pressure injury of right hip, stage 4 Current Visit: Yes Status: Acute Code(s): L89.214 - PRESSURE ULCER OF RIGHT HIP, STAGE 4 SNOMED Code(s): 59565040653764 (3) Type 2 diabetes mellitus with other skin ulcer Current Visit: Yes Status: Acute Code(s): E11.622 - TYPE 2 DIABETES MELLITUS WITH OTHER SKIN ULCER; L98.499 - NON-PRESSURE CHRONIC ULCER OF SKIN OF SITES W UNSP SEVERITY SNOMED Code(s): 360573384
[2023-06-10 13:28] VITALS: BMI 62.3
[2023-06-10] MEDS: DEXTROSE 5% IN WATER 1,000 ML with SODIUM BICARB (1 MEQ/ML) 150 ML IV SCH (14:12)
[2023-06-10] MEDS: CLINDAMYCIN 600 MG in DEXTROSE 5% IN WATER 50 ML IVPB SCH ×4 (14:12→22:59)
[2023-06-10] MEDS: FERROUS SULFATE 325 MG TAB PO SCH (14:12)
--- NOTE | 2023-06-10 14:24 | P.HPIM ---
History of Present Illness H&P Date: 06/10/23 History of present illness; patient is a 57-year-old lady with past medical his tory significant for asthma,diabetes mellitus, insulin-dependent, GERD, musculoskeletal disorder, neurologic disorder, and sleep apnea with CPAP, spina bifida and hydrocephalus with [place] I malformation history, recurrent UTIs with ESBL along with MRSA of her buttock and leg regions presented to the ER for evaluation for sacral decub. Patient is wheelchair-bound. Patient is a resident of alf facility. Nursing staff at the facility were concerned about worsening sacral decub and right trochanteric pressure ulcer. Patient has been having complaining of lethargy and weakness. There was no clear fever or chills. No complaint of nausea, abdominal pain. Initial lab work done in the ER showed WBC 26.4, hemoglobin 7.3, platelet count 462, sodium 134, potassium 5.2 BUS 79, creatinine 3.04 glucose 166 phosphorus 5.5 troponin 0.012 proBNP 3850 UA done showed nitrite negative, large amount of urine blood, leukocyte esterase moderate amount, urine WBC 182 EKG done in the ER showed heart rate of , no ST segment elevation or depression seen, no T-wave inversions seen. CT abdomen pelvis done showed no acute abnormality, distended gallbladder seen. Deep sacral decub and right decubitus ulcer with Chronic appearing underlying bony changes likely related to chronic osteomyelitis. Mild/moderate degenerative changes of the visualized spine at T10T 11. Patient admitted to internal medicine service REVIEW OF SYSTEMS: CONSTITUTIONAL: As mentioned above HEENT: No recent visual problems or hearing problems. Denied any sore throat. CARDIOVASCULAR: No chest pain, orthopnea, PND, no palpitations, no syncope. PULMONARY: No shortness of breath, no cough, no hemoptysis. GASTROINTESTINAL: As mentioned above NEUROLOGICAL: No headaches, no weakness, no numbness. HEMATOLOGICAL: Denies any bleeding or petechiae. GENITOURINARY: Denies any burning micturition, frequency, or urgency. MUSCULOSKELETAL/RHEUMATOLOGICAL: Denies any joint pain, swelling, or any muscle pain. ENDOCRINE: Denies any polyuria or polydipsia. The rest of the 14-point review of systems is negative. PHYSICAL EXAMINATION: GENERAL: The patient is alert and oriented x3, not in any acute distress. Well developed, well nourished. HEENT: Pupils are round and equally reacting to light. EOMI. No scleral icterus. No conjunctival pallor. Normocephalic, atraumatic. No pharyngeal erythema. No thyromegaly. CARDIOVASCULAR: S1 and S2 present. No murmurs, rubs, or gallops. PULMONARY: Chest is clear to auscultation, no wheezing or crackles. ABDOMEN: Soft, nontender, nondistended, normoactive bowel sounds. No palpable organomegaly. Urostomy seen MUSCULOSKELETAL: Atrophy of lower extremities seen EXTREMITIES: No cyanosis, clubbing, or pedal edema. NEUROLOGICAL: Gross neurological examination did not reveal any focal deficits. SKIN: Stage IV sacral decub and stage IV pressure ulcer to right torchanter Assessment and plan Bacteremia Sepsis present on admission Stage IV sacral decub stage IV pressure ulcer to right torchanter Sacral decub and right decubitus ulcer with chronic underlying bony changes likely related to chronic osteomyelitis Hyponatremia Acute on chronic kidney disease Anemia Acute urinary tract infection, present on admission with failed outpatient therapy Past history of MRSA and ESBL of the wounds recurrent urinary tract infections Asthma history, not in exacerbation Diabetes mellitus, type II, insulin-dependent Gastroesophageal reflux disease Musculoskeletal disorder History of spina bifida with hydrocephalus [place] I malformation Chronic renal disease Sleep apnea with a CPAP Monitor vital signs Monitor CBC Monitor CMP Continue telemetry monitoring Follow-up on blood cultures Order urine cultures Ordered anemia workup with iron profile, vitamin B12, folate Ordered FOBT Avoid nephrotoxic agents Ordered ultrasound of kidneys Continue IV meropenem Consult ID Consult wound care Consult nephrology Labs and medication were reviewed.. Continue same treatment. Continue with s ymptomatic treatment. Resume home medication. Monitor labs and vitals. DVT and GI prophylaxis. Further recommendations as per clinical course of the patient Dictation was produced using [employer] dictation software. please excuse any grammatical, word or spelling errors. Past Medical History Past Medical History: Asthma, Diabetes Mellitus, GERD/Reflux, Musculoskeletal Disorder, Neurologic Disorder, Pneumonia, Renal Disease, Sleep Apnea/CPAP/BIPAP Additional Past Medical History / Comment(s): 08-09-15 admitted with cellulitis of external nose. other pst medical hx includes: hx. 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, MRSA Date of last positivie culture/infection: 07/07/21 MRSA 01/07/15 ESBL MDRO Source:: MRSA BUTTOCK, ESBL LEG Past Surgical History: Back Surgery, Bowel Resection, Orthopedic Surgery Additional Past Surgical History / Comment(s): multiple surgeries for hydrocephalus, urostomy x 2, multiple hip,leg, foot surgeries, ankles fused, VA shunt, pt stated back sx was to remove spina bifida growth, egd Past Anesthesia/Blood Transfusion Reactions: No Reported Reaction Past Psychological History: No Psychological Hx Reported Smoking Status: Never smoker Past Alcohol Use History: None Reported Past Drug Use History: None Reported - Past Family History Father Family Medical History: Hypertension Additional Family Medical History / Comment(s): gout, heart murmur, rheumatic fever as child, tia Mother Family Medical History: Cancer, Hypertension Additional Family Medical History / Comment(s): interstitial cystitis, breast cancer x2, diet controlled diabetic, hiatal hernia Medications and Allergies Home Medications Medication Instructions Recorded Confirmed Type allopurinoL [Zyloprim] 300 mg PO DAILY 10/04/14 06/09/23 History Torsemide [Demadex] 20 mg PO BID 30 Days #60 tab 04/30/22 06/09/23 Rx Calcium Carbonate 500 mg PO DAILY 06/09/23 06/09/23 History Cholestyramine (with Sugar) 4 gm PO TID PRN 06/09/23 06/09/23 History [Questran Packet] Ferrous Sulfate [Feosol] 325 mg PO DAILY 06/09/23 06/09/23 History Folic Acid 1 mg PO DAILY 06/09/23 06/09/23 History HYDROcodone/APAP 5-325MG [[place] 1 tab PO Q4H PRN 06/09/23 06/09/23 History 5-325] Ibuprofen [Motrin Ib] 400 mg PO Q6H PRN 06/09/23 06/09/23 History Lidocaine Viscous 2% [Xylocaine 5 ml MUCOUS MEM Q4H PRN 06/09/23 06/09/23 History Viscous] Magnesium Oxide [Mag-Ox] 400 mg PO DAILY 06/09/23 06/09/23 History Menthol [Icy Hot] 2 patch TRANSDERM DAILY 06/09/23 06/09/23 History Thiamine [Vitamin B-1] 100 mg PO DAILY 06/09/23 06/09/23 History hydrOXYzine HCL [Atarax] 25 mg PO Q8HR PRN 06/09/23 06/09/23 History Allergies Allergy/AdvReac Type Severity Reaction Status Date / Time amoxicillin trihydrate Allergy Rash/Hives Verified 06/09/23 17:28 [From Augmentin] banana Allergy Unknown Verified 06/09/23 17:28 chestnut Allergy Unknown Verified 06/09/23 17:28 ciprofloxacin [From Cipro] Allergy Rash/Hives Verified 06/09/23 17:28 ciprofloxacin HCl Allergy Rash/Hives Verified 06/09/23 17:28 [From Cipro] kiwi Allergy Unknown Verified 06/09/23 17:28 Latex, Natural Rubber Allergy Anaphylaxis Verified 06/09/23 17:28 methylprednisolone Allergy Rash/Hives Verified 06/09/23 17:28 [From Solu-Medrol] midazolam Allergy Unknown Verified 06/09/23 17:28 nitrofurantoin Allergy Rash/Hives Verified 06/09/23 17:28 macrocrystalline [From Macrodantin] oxacillin Allergy Unknown Verified 06/09/23 17:28 potassium clavulanate Allergy Rash/Hives Verified 06/09/23 17:28 [From Augmentin] Sulfa (Sulfonamide Allergy Rash/Hives Verified 06/09/23 17:28 Antibiotics) vancomycin Allergy Anaphylaxis Verified 06/09/23 17:28 Beef Containing Products AdvReac Diarrhea Verified 06/09/23 17:28 [Beef] sucralose AdvReac Diarrhea Verified 06/09/23 17:28 [From Splenda (sucralose)] callagen Allergy Rash/Hives Uncoded 05/28/22 17:24 Physical Exam Vitals: Vital Signs Temp Pulse Pulse Resp BP BP Pulse Ox 06/10/23 07:32 98.4 F 118 H 20 92/84 97 06/10/23 03:30 103/68 06/10/23 01:06 98.4 F 106 H 18 94/58 94 L 06/09/23 23:50 97.3 F L 109 H 20 92/57 95 06/09/23 22:36 100 91/63 97 06/09/23 22:12 98 22 92/54 96 06/09/23 21:38 93 20 97/63 98 06/09/23 21:30 20 95/55 97 06/09/23 21:00 83/52 06/09/23 20:00 95 18 80/45 97 06/09/23 19:23 98.6 F 93 18 85/55 97 06/09/23 18:05 98.3 F 92 16 92/57 96 06/09/23 13:41 97.6 F 91 18 94/60 97 Intake and Output 06/09/23 06/10/23 06/10/23 22:59 06:59 14:59 Output Total 800 Balance -800 Output: Drainage 800 Abdomen 800 Other: Voiding Method Ileal Conduit (Right) Weight 140 kg Results CBC & Chem 7: 06/10/23 05:16 06/10/23 05:16 Labs: Abnormal Lab Results - Last 24 Hours (Table) 06/09/23 06/09/23 06/09/23 Range/Units 14:40 14:40 14:40 WBC 26.4 H (3.8-10.6) k/uL RBC 2.75 L (3.80-5.40) m/uL Hgb 7.3 L (11.4-16.0) gm/dL Hct 24.8 L (34.0-46.0) % MCH (27.0-32.0) pg MCHC 29.3 L (31.0-37.0) g/dL RDW 18.8 H (11.5-15.5) % Plt Count 462 H (150-450) k/uL Immature Gran # (0.00-0.04) X 10*3/uL Neutrophils # (1.80-7.70) X 10*3/uL Neutrophils # (Manual) 24.80 H (1.3-7.7) k/uL Eosinophils # (0.04-0.35) X 10*3/uL NRBC/100 WBC Diff (0.00-0.01) X 10*3/uL APTT 31.0 H (22.0-30.0) sec Sodium 134 L (137-145) mmol/L Potassium 5.2 H (3.5-5.1) mmol/L Chloride (96-109) mmol/L Carbon Dioxide 11 L (22-30) mmol/L Anion Gap (4.00-12.00) mmol/L BUN 79 H (7-17) mg/dL Creatinine 3.04 H (0.52-1.04) mg/dL Est GFR (CKD-EPI) (>=60) BUN/Creatinine Ratio (12.00-20.00) Ratio Glucose 166 H (74-99) mg/dL Calcium (8.7-10.3) mg/dL Phosphorus 5.5 H (2.5-4.5) mg/dL Total Bilirubin (0.3-1.2) mg/dL Alkaline Phosphatase 255 H (38-126) U/L Albumin 2.6 L (3.5-5.0) g/dL Globulin (1.6-3.3) g/dL Albumin/Globulin Ratio (1.60-3.17) Ratio Urine Appearance (Clear) Urine Protein (Negative) Urine Blood (Negative) Ur Leukocyte Esterase (Negative) Urine WBC (0-5) /hpf Urine WBC Clumps (None) /hpf Urine Bacteria (None) /hpf 06/09/23 06/10/23 06/10/23 Range/Units 20:45 05:16 05:16 WBC 20.17 H (3.8-10.6) k/uL RBC 2.48 L (3.80-5.40) m/uL Hgb 6.3 A* (11.4-16.0) gm/dL Hct 22.2 L (34.0-46.0) % MCH 25.4 L (27.0-32.0) pg MCHC 28.4 L (31.0-37.0) g/dL RDW 19.7 H (11.5-15.5) % Plt Count (150-450) k/uL Immature Gran # 0.24 H (0.00-0.04) X 10*3/uL Neutrophils # 17.47 H (1.80-7.70) X 10*3/uL Neutrophils # (Manual) (1.3-7.7) k/uL Eosinophils # 0.01 L (0.04-0.35) X 10*3/uL NRBC/100 WBC Diff 0.02 H (0.00-0.01) X 10*3/uL APTT (22.0-30.0) sec Sodium (137-145) mmol/L Potassium (3.5-5.1) mmol/L Chloride 112 H (96-109) mmol/L Carbon Dioxide 11.8 L (22-30) mmol/L Anion Gap 13.20 H (4.00-12.00) mmol/L BUN 69.1 H (7-17) mg/dL Creatinine 2.1 H (0.52-1.04) mg/dL Est GFR (CKD-EPI) 27 L (>=60) BUN/Creatinine Ratio 32.90 H (12.00-20.00) Ratio Glucose (74-99) mg/dL Calcium 8.0 L (8.7-10.3) mg/dL Phosphorus (2.5-4.5) mg/dL Total Bilirubin <0.2 L (0.3-1.2) mg/dL Alkaline Phosphatase 210 H (38-126) U/L Albumin 2.0 L (3.5-5.0) g/dL Globulin 4.2 H (1.6-3.3) g/dL Albumin/Globulin Ratio 0.48 L (1.60-3.17) Ratio Urine Appearance Turbid H (Clear) Urine Protein 3+ H (Negative) Urine Blood Large H (Negative) Ur Leukocyte Esterase Moderate H (Negative) Urine WBC >182 H (0-5) /hpf Urine WBC Clumps Many H (None) /hpf Urine Bacteria Many H (None) /hpf Microbiology - Last 24 Hours (Table) 06/09/23 14:40 Blood Culture Gram Stain - Preliminary Blood
--- NOTE | 2023-06-10 14:37 | P.NPCON ---
History of Present Illness - Reason for Consult acute renal failure - History of Present Illness Patient is a 57-year-old female with history of type 2 diabetes, asthma with history of spina bifida and recurrent UTIs. Patient has a chronic sacral decubitus. She is wheelchair-bound and resident of senior living. Patient was referred to the hospital due to worsening sacral wound and right trochanteric pressure ulcer. Serum creatinine was 3.0 on admission and decreased to 2.1 today. Blood pressure has been low with systolic in the 90s Currently maintained on IV fluids. NSAIDs, Motrin noted on home med list along with Demadex. Patient has a urostomy. Good urine output noted. Review of Systems As per HPI Past Medical History Past Medical History: Asthma, Diabetes Mellitus, GERD/Reflux, Musculoskeletal Disorder, Neurologic Disorder, Pneumonia, Renal Disease, Sleep Apnea/CPAP/BIPAP Additional Past Medical History / Comment(s): 08-09-15 admitted with cellulitis of external nose. other pst medical hx includes: hx. 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, MRSA Date of last positivie culture/infection: 07/07/21 MRSA 01/07/15 ESBL MDRO Source:: MRSA BUTTOCK, ESBL LEG Past Surgical History: Back Surgery, Bowel Resection, Orthopedic Surgery Additional Past Surgical History / Comment(s): multiple surgeries for hydrocephalus, urostomy x 2, multiple hip,leg, foot surgeries, ankles fused, [facility] shunt, pt stated back sx was to remove spina bifida growth, egd Past Anesthesia/Blood Transfusion Reactions: No Reported Reaction Past Psychological History: No Psychological Hx Reported Smoking Status: Never smoker Past Alcohol Use History: None Reported Past Drug Use History: None Reported - Past Family History Father Family Medical History: Hypertension Additional Family Medical History / Comment(s): gout, heart murmur, rheumatic fever as child, tia Mother Family Medical History: Cancer, Hypertension Additional Family Medical History / Comment(s): interstitial cystitis, breast cancer x2, diet controlled diabetic, hiatal hernia Medications and Allergies Home Medications Medication Instructions Recorded Confirmed Type allopurinoL [Zyloprim] 300 mg PO DAILY 10/04/14 06/09/23 History Torsemide [Demadex] 20 mg PO BID 30 Days #60 tab 04/30/22 06/09/23 Rx Calcium Carbonate 500 mg PO DAILY 06/09/23 06/09/23 History Cholestyramine (with Sugar) 4 gm PO TID PRN 06/09/23 06/09/23 History [Questran Packet] Ferrous Sulfate [Feosol] 325 mg PO DAILY 06/09/23 06/09/23 History Folic Acid 1 mg PO DAILY 06/09/23 06/09/23 History HYDROcodone/APAP 5-325MG [[place] 1 tab PO Q4H PRN 06/09/23 06/09/23 History 5-325] Ibuprofen [Motrin Ib] 400 mg PO Q6H PRN 06/09/23 06/09/23 History Lidocaine Viscous 2% [Xylocaine 5 ml MUCOUS MEM Q4H PRN 06/09/23 06/09/23 History Viscous] Magnesium Oxide [Mag-Ox] 400 mg PO DAILY 06/09/23 06/09/23 History Menthol [Icy Hot] 2 patch TRANSDERM DAILY 06/09/23 06/09/23 History Thiamine [Vitamin B-1] 100 mg PO DAILY 06/09/23 06/09/23 History hydrOXYzine HCL [Atarax] 25 mg PO Q8HR PRN 06/09/23 06/09/23 History Allergies Allergy/AdvReac Type Severity Reaction Status Date / Time amoxicillin trihydrate Allergy Rash/Hives Verified 06/09/23 17:28 [From Augmentin] banana Allergy Unknown Verified 06/09/23 17:28 chestnut Allergy Unknown Verified 06/09/23 17:28 ciprofloxacin [From Cipro] Allergy Rash/Hives Verified 06/09/23 17:28 ciprofloxacin HCl Allergy Rash/Hives Verified 06/09/23 17:28 [From Cipro] kiwi Allergy Unknown Verified 06/09/23 17:28 Latex, Natural Rubber Allergy Anaphylaxis Verified 06/09/23 17:28 methylprednisolone Allergy Rash/Hives Verified 06/09/23 17:28 [From Solu-Medrol] midazolam Allergy Unknown Verified 06/09/23 17:28 nitrofurantoin Allergy Rash/Hives Verified 06/09/23 17:28 macrocrystalline [From Macrodantin] oxacillin Allergy Unknown Verified 06/09/23 17:28 potassium clavulanate Allergy Rash/Hives Verified 06/09/23 17:28 [From Augmentin] Sulfa (Sulfonamide Allergy Rash/Hives Verified 06/09/23 17:28 Antibiotics) vancomycin Allergy Anaphylaxis Verified 06/09/23 17:28 Beef Containing Products AdvReac Diarrhea Verified 06/09/23 17:28 [Beef] sucralose AdvReac Diarrhea Verified 06/09/23 17:28 [From Splenda (sucralose)] callagen Allergy Rash/Hives Uncoded 05/28/22 17:24 Physical Exam Vitals: Vital Signs Temp Pulse Pulse Resp BP BP Pulse Ox 06/10/23 11:50 98.5 F 109 H 20 99/62 95 06/10/23 07:32 98.4 F 118 H 20 92/84 97 06/10/23 03:30 103/68 06/10/23 01:06 98.4 F 106 H 18 94/58 94 L 06/09/23 23:50 97.3 F L 109 H 20 92/57 95 06/09/23 22:36 100 91/63 97 06/09/23 22:12 98 22 92/54 96 06/09/23 21:38 93 20 97/63 98 06/09/23 21:30 20 95/55 97 06/09/23 21:00 83/52 06/09/23 20:00 95 18 80/45 97 06/09/23 19:23 98.6 F 93 18 85/55 97 06/09/23 18:05 98.3 F 92 16 92/57 96 Intake and Output 06/09/23 06/10/23 06/10/23 22:59 06:59 14:59 Output Total 800 Balance -800 Output: Drainage 800 Abdomen 800 Other: Voiding Method Ileal Conduit (Right) Ileal Conduit (Right) Weight 140 kg 140 kg Patient is awake, comfortable, no acute distress Examination of the heart S1 and S2 Examination of the lungs bilateral breath sounds are heard Abdomen is soft nontender Examination of lower extremities shows 1+ edema, patient has paraplegia Results - Lab Results Most recent lab results Calcium 8.0 mg/dL (8.7-10.3) L 06/10/23 05:16 Phosphorus 4.1 mg/dL (2.4-5.1) 06/10/23 05:16 Magnesium 1.7 mg/dL (1.5-2.4) 06/10/23 05:16 06/10/23 05:16 06/10/23 05:16 Assessment and Plan Assessment: 1. Acute kidney injury, ATN currently nonoliguric and improving with IV hydration. UA shows significant pyuria. It is a specimen from urostomy/ileal conduit. 2. Sacral decub and right hip ulcer with concern for osteomyelitis 3. Severe anemia with hemoglobin of 6.3 mg/dL on admission status post packed RBCs transfusion. No active bleeding. 4. Gram-positive bacteremia 5. Sepsis with gram-positive bacteremia and wounds in the sacral area and right hip ulcer. 6. History of spina bifida and hydrocephalus 7. History of recurrent UTIs status post urostomy 8. Severe metabolic acidosis secondary to acute kidney injury, GI fluid loss Plan: Change IV fluids to IV bicarb. Repeat labs in a.m. Continue with antibiotics If renal function does not return to baseline we will consult urology as CT shows dilated renal pelvis bilaterally which may be mostly chronic. Thank you for the consultation. We will continue to follow the patient with you during her hospitalization.
--- NOTE | 2023-06-10 15:09 | P.GSCN ---
History of Present Illness Consult date: 06/10/23 History of present illness: CHIEF COMPLAINT: Worsening sacral decub HISTORY OF PRESENT ILLNESS: This is a 57-year-old female with a history of spina bifida, hydrocephalus, diabetes and is wheelchair-bound. Patient is a resident in a [facility] facility. She was brought into the hospital due to worsening sacral decubitus ulcer and possible UTI. Patient is a poor historian. She is currently lethargic. Patient does have a history of sacral decubitus ulcer and right trochanteric ulcer had required debridement in May 2022. Per nursing staff patient did have a wound VAC but due to her continuing to stool in the wound VAC it was discontinued. No fevers reported. Computed tomography scan abdomen and pelvis reported deep sacral decubitus and right decubitus ulcers with chronic appearing underlying bony changes likely related to chronic osteomyelitis. Patient had elevated white count. The wounds have follow odor and there is some necrotic tissue noted on the right hip wound. She is receiving a unit of blood for hemoglobin of 6.3 and she is malnourished. Per nursing staff no active bleeding noted. She also has evidence of acute kidney injury and is followed by nephrology. Patient also has a positive blood culture. She is on IV antibiotics. Patient does have prior history of MRSA and ESBL in her wounds. PAST MEDICAL HISTORY: Asthma, Diabetes Mellitus, GERD/Reflux, Musculoskeletal Disorder, Neurologic Disorder, Pneumonia, Renal Disease, Sleep Apnea/CPAP/BIPAP,gout, spina bifida, hydrocephalus,chiari malformation, Gates's palsy, has urostomy, decreased renal function, edema, hiatal hernia, dysphagia w/food getting stuck, has [facility] shunt, in wheelchair,chronic bronchitis pt stated recently disgnosed with neuro dermatitis PAST SURGICAL HISTORY: Back Surgery, Bowel Resection, Orthopedic Surgery, multiple surgeries for hydrocephalus, urostomy x 2, multiple hip,leg, foot surgeries, ankles fused, [facility] shunt, pt stated back sx was to remove spina bifida growth, egd MEDICATIONS: See below ALLERGIES: See below SOCIAL HISTORY: No illicit drug use. REVIEW OF SYSTEMS: CONSTITUTIONAL: Denies fever or chills. HEENT: Denies blurred vision, vision changes, or eye pain. Denies hemoptysis CARDIOVASCULAR: Denies chest pain or pressure. RESPIRATORY: No shortness of breath. GASTROINTESTINAL: See HPI for pertinent findings HEMATOLOGIC: Denies bleeding disorders. GENITOURINARY: Denies any blood in urine or increased urinary frequency. SKIN: Denies pruitis. Denies rash. PHYSICAL EXAM: VITAL SIGNS: Reviewed GENERAL: Lethargic ABDOMEN: Soft. Nondistended. Nondistended NEUROLOGIC: lethargic. moans with movement SKIN: Large Sacral ulceration with bone exposure. Granulation tissue and softening. There is 3 areas of dark tissue along the distal edge of the sacral wound. Right trochanteric ulceration with tunneling with necrotic tissue LABORATORY DATA: WBC 20.1 hgb 6.3 platelets 360 Sodium 137 potassium 4.1 creatinine 3.04-2.1 Albumin 2.0 IMAGING: Computed tomography scan abdomen and pelvis no clearly acute abnormality. Distended gallbladder. If concerns for development of acute cholecystitis ultrasound HIDA may be obtained. Deep sacral decubitus and right decubitus ulcers with chronic appearing underlying bony changes related to chronic osteomyelitis. Severe chronic degenerative changes of the hips with joint effusions. Mild to moderate degenerative changes of the spine with mild endplate irregularity at T10 to T 11 likely due to degenerative change but concern for osteomyelitis MRI could be obtained. ASSESSMENT: 1. Large sacral decubitus ulcer 2. Right trochanteric ulcer with necrotic tissue 3. Chronic osteomyelitis 4. Possible blood culture PLAN: -Further recommendations forthcoming per surgeon regarding possible debridement -Continue antibiotics -Continue local wound care -Agree with consultation infectious disease and wound care service Thank you for this consultation Physician Window Tinter note has been reviewed by physician. Signing provider agrees with the documented findings, assessment, and plan of care. I have personally seen and examined the patient, reviewed the HEAVY THREADER /PAs history, exam and MDM and agree with the assessment and plan as written. Based on total visit time, I have performed more than 50% of the visit. As above: Patient with persistent decubitus ulcerations. The sacral decubitus ulcer actually looks fairly clean. No plans for debridement currently. The right trochanteric ulcer has necrotic skin and subcutaneous tissues. This is tunneling to a smaller wound lateral to that. Continue local wound care for this evening. Spoke with patient and her mother. We'll proceed with bedside debridement tomorrow. Continue offloading and nutritional support. Sepsis more likely to be related to the patient's urinary infection. Patient apparently was having thick foul-smelling urine that was cottage cheese consistency per family at the [facility] this week. Continue antibiotics. Prognosis poor. Past Medical History Past Medical History: Asthma, Diabetes Mellitus, GERD/Reflux, Musculoskeletal Disorder, Neurologic Disorder, Pneumonia, Renal Disease, Sleep Apnea/CPAP/BIPAP Additional Past Medical History / Comment(s): 08-09-15 admitted with cellulitis of external nose. other pst medical hx includes: hx. 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 ESBL MDRO Source:: MRSA BUTTOCK, ESBL LEG Past Surgical History: Back Surgery, Bowel Resection, Orthopedic Surgery Additional Past Surgical History / Comment(s): multiple surgeries for hydrocephalus, urostomy x 2, multiple hip,leg, foot surgeries, ankles fused, [facility] shunt, pt stated back sx was to remove spina bifida growth, egd Past Anesthesia/Blood Transfusion Reactions: No Reported Reaction Past Psychological History: No Psychological Hx Reported Smoking Status: Never smoker Past Alcohol Use History: None Reported Past Drug Use History: None Reported - Past Family History Father Family Medical History: Hypertension Additional Family Medical History / Comment(s): gout, heart murmur, rheumatic fever as child, tia Mother Family Medical History: Cancer, Hypertension Additional Family Medical History / Comment(s): interstitial cystitis, breast cancer x2, diet controlled diabetic, hiatal hernia Medications and Allergies Home Medications Medication Instructions Recorded Confirmed Type allopurinoL [Zyloprim] 300 mg PO DAILY 10/04/14 06/09/23 History Torsemide [Demadex] 20 mg PO BID 30 Days #60 tab 04/30/22 06/09/23 Rx Calcium Carbonate 500 mg PO DAILY 06/09/23 06/09/23 History Cholestyramine (with Sugar) 4 gm PO TID PRN 06/09/23 06/09/23 History [Questran Packet] Ferrous Sulfate [Feosol] 325 mg PO DAILY 06/09/23 06/09/23 History Folic Acid 1 mg PO DAILY 06/09/23 06/09/23 History HYDROcodone/APAP 5-325MG [[place] 1 tab PO Q4H PRN 06/09/23 06/09/23 History 5-325] Ibuprofen [Motrin Ib] 400 mg PO Q6H PRN 06/09/23 06/09/23 History Lidocaine Viscous 2% [Xylocaine 5 ml MUCOUS MEM Q4H PRN 06/09/23 06/09/23 History Viscous] Magnesium Oxide [Mag-Ox] 400 mg PO DAILY 06/09/23 06/09/23 History Menthol [Icy Hot] 2 patch TRANSDERM DAILY 06/09/23 06/09/23 History Thiamine [Vitamin B-1] 100 mg PO DAILY 06/09/23 06/09/23 History hydrOXYzine HCL [Atarax] 25 mg PO Q8HR PRN 06/09/23 06/09/23 History Allergies Allergy/AdvReac Type Severity Reaction Status Date / Time amoxicillin trihydrate Allergy Rash/Hives Verified 06/09/23 17:28 [From Augmentin] banana Allergy Unknown Verified 06/09/23 17:28 chestnut Allergy Unknown Verified 06/09/23 17:28 ciprofloxacin [From Cipro] Allergy Rash/Hives Verified 06/09/23 17:28 ciprofloxacin HCl Allergy Rash/Hives Verified 06/09/23 17:28 [From Cipro] kiwi Allergy Unknown Verified 06/09/23 17:28 Latex, Natural Rubber Allergy Anaphylaxis Verified 06/09/23 17:28 methylprednisolone Allergy Rash/Hives Verified 06/09/23 17:28 [From Solu-Medrol] midazolam Allergy Unknown Verified 06/09/23 17:28 nitrofurantoin Allergy Rash/Hives Verified 06/09/23 17:28 macrocrystalline [From Macrodantin] oxacillin Allergy Unknown Verified 06/09/23 17:28 potassium clavulanate Allergy Rash/Hives Verified 06/09/23 17:28 [From Augmentin] Sulfa (Sulfonamide Allergy Rash/Hives Verified 06/09/23 17:28 Antibiotics) vancomycin Allergy Anaphylaxis Verified 06/09/23 17:28 Beef Containing Products AdvReac Diarrhea Verified 06/09/23 17:28 [Beef] sucralose AdvReac Diarrhea Verified 06/09/23 17:28 [From Splenda (sucralose)] callagen Allergy Rash/Hives Uncoded 05/28/22 17:24 Surgical - Exam Vital Signs Temp Pulse Resp BP Pulse Ox 97.6 F 91 18 94/60 97 06/09/23 13:41 06/09/23 13:41 06/09/23 13:41 06/09/23 13:41 06/09/23 13:41 Results - Labs 06/10/23 05:16 06/10/23 05:16 Abnormal Lab Results - Last 24 Hours (Table) 06/09/23 06/09/23 06/09/23 Range/Units 14:40 14:40 14:40 WBC 26.4 H (3.8-10.6) k/uL RBC 2.75 L (3.80-5.40) m/uL Hgb 7.3 L (11.4-16.0) gm/dL Hct 24.8 L (34.0-46.0) % MCH (27.0-32.0) pg MCHC 29.3 L (31.0-37.0) g/dL RDW 18.8 H (11.5-15.5) % Plt Count 462 H (150-450) k/uL Immature Gran # (0.00-0.04) X 10*3/uL Neutrophils # (1.80-7.70) X 10*3/uL Neutrophils # (Manual) 24.80 H (1.3-7.7) k/uL Eosinophils # (0.04-0.35) X 10*3/uL NRBC/100 WBC Diff (0.00-0.01) X 10*3/uL APTT 31.0 H (22.0-30.0) sec Sodium 134 L (137-145) mmol/L Potassium 5.2 H (3.5-5.1) mmol/L Chloride (96-109) mmol/L Carbon Dioxide 11 L (22-30) mmol/L Anion Gap (4.00-12.00) mmol/L BUN 79 H (7-17) mg/dL Creatinine 3.04 H (0.52-1.04) mg/dL Est GFR (CKD-EPI) (>=60) BUN/Creatinine Ratio (12.00-20.00) Ratio Glucose 166 H (74-99) mg/dL Calcium (8.7-10.3) mg/dL Phosphorus 5.5 H (2.5-4.5) mg/dL Total Bilirubin (0.3-1.2) mg/dL Alkaline Phosphatase 255 H (38-126) U/L Albumin 2.6 L (3.5-5.0) g/dL Globulin (1.6-3.3) g/dL Albumin/Globulin Ratio (1.60-3.17) Ratio Urine Appearance (Clear) Urine Protein (Negative) Urine Blood (Negative) Ur Leukocyte Esterase (Negative) Urine WBC (0-5) /hpf Urine WBC Clumps (None) /hpf Urine Bacteria (None) /hpf Crossmatch 06/09/23 06/10/23 06/10/23 Range/Units 20:45 05:16 05:16 WBC 20.17 H (3.8-10.6) k/uL RBC 2.48 L (3.80-5.40) m/uL Hgb 6.3 A* (11.4-16.0) gm/dL Hct 22.2 L (34.0-46.0) % MCH 25.4 L (27.0-32.0) pg MCHC 28.4 L (31.0-37.0) g/dL RDW 19.7 H (11.5-15.5) % Plt Count (150-450) k/uL Immature Gran # 0.24 H (0.00-0.04) X 10*3/uL Neutrophils # 17.47 H (1.80-7.70) X 10*3/uL Neutrophils # (Manual) (1.3-7.7) k/uL Eosinophils # 0.01 L (0.04-0.35) X 10*3/uL NRBC/100 WBC Diff 0.02 H (0.00-0.01) X 10*3/uL APTT (22.0-30.0) sec Sodium (137-145) mmol/L Potassium (3.5-5.1) mmol/L Chloride 112 H (96-109) mmol/L Carbon Dioxide 11.8 L (22-30) mmol/L Anion Gap 13.20 H (4.00-12.00) mmol/L BUN 69.1 H (7-17) mg/dL Creatinine 2.1 H (0.52-1.04) mg/dL Est GFR (CKD-EPI) 27 L (>=60) BUN/Creatinine Ratio 32.90 H (12.00-20.00) Ratio Glucose (74-99) mg/dL Calcium 8.0 L (8.7-10.3) mg/dL Phosphorus (2.5-4.5) mg/dL Total Bilirubin <0.2 L (0.3-1.2) mg/dL Alkaline Phosphatase 210 H (38-126) U/L Albumin 2.0 L (3.5-5.0) g/dL Globulin 4.2 H (1.6-3.3) g/dL Albumin/Globulin Ratio 0.48 L (1.60-3.17) Ratio Urine Appearance Turbid H (Clear) Urine Protein 3+ H (Negative) Urine Blood Large H (Negative) Ur Leukocyte Esterase Moderate H (Negative) Urine WBC >182 H (0-5) /hpf Urine WBC Clumps Many H (None) /hpf Urine Bacteria Many H (None) /hpf Crossmatch 06/10/23 Range/Units 10:26 WBC (3.8-10.6) k/uL RBC (3.80-5.40) m/uL Hgb (11.4-16.0) gm/dL Hct (34.0-46.0) % MCH (27.0-32.0) pg MCHC (31.0-37.0) g/dL RDW (11.5-15.5) % Plt Count (150-450) k/uL Immature Gran # (0.00-0.04) X 10*3/uL Neutrophils # (1.80-7.70) X 10*3/uL Neutrophils # (Manual) (1.3-7.7) k/uL Eosinophils # (0.04-0.35) X 10*3/uL NRBC/100 WBC Diff (0.00-0.01) X 10*3/uL APTT (22.0-30.0) sec Sodium (137-145) mmol/L Potassium (3.5-5.1) mmol/L Chloride (96-109) mmol/L Carbon Dioxide (22-30) mmol/L Anion Gap (4.00-12.00) mmol/L BUN (7-17) mg/dL Creatinine (0.52-1.04) mg/dL Est GFR (CKD-EPI) (>=60) BUN/Creatinine Ratio (12.00-20.00) Ratio Glucose (74-99) mg/dL Calcium (8.7-10.3) mg/dL Phosphorus (2.5-4.5) mg/dL Total Bilirubin (0.3-1.2) mg/dL Alkaline Phosphatase (38-126) U/L Albumin (3.5-5.0) g/dL Globulin (1.6-3.3) g/dL Albumin/Globulin Ratio (1.60-3.17) Ratio Urine Appearance (Clear) Urine Protein (Negative) Urine Blood (Negative) Ur Leukocyte Esterase (Negative) Urine WBC (0-5) /hpf Urine WBC Clumps (None) /hpf Urine Bacteria (None) /hpf Crossmatch See Detail Microbiology - Last 24 Hours (Table) 06/09/23 14:40 Blood Culture Gram Stain - Preliminary Blood Diabetes panel 06/09/23 06/10/23 Range/Units 14:40 05:16 Sodium 134 L 137 (137-145) mmol/L Potassium 5.2 H 4.1 (3.5-5.1) mmol/L Chloride 106 112 H (98-107) mmol/L Carbon Dioxide 11 L 11.8 L (22-30) mmol/L BUN 79 H 69.1 H (7-17) mg/dL Creatinine 3.04 H 2.1 H (0.52-1.04) mg/dL Glucose 166 H 89 (74-99) mg/dL Calcium 8.7 8.0 L (8.4-10.2) mg/dL AST 31 18 (14-36) U/L ALT 22 14 (4-34) U/L Alkaline Phosphatase 255 H 210 H (38-126) U/L Total Protein 7.3 6.2 (6.3-8.2) g/dL Albumin 2.6 L 2.0 L (3.5-5.0) g/dL Calcium panel 06/09/23 06/10/23 Range/Units 14:40 05:16 Calcium 8.7 8.0 L (8.4-10.2) mg/dL Phosphorus 5.5 H 4.1 (2.5-4.5) mg/dL Albumin 2.6 L 2.0 L (3.5-5.0) g/dL Pituitary panel 06/09/23 06/10/23 Range/Units 14:40 05:16 Sodium 134 L 137 (137-145) mmol/L Potassium 5.2 H 4.1 (3.5-5.1) mmol/L Chloride 106 112 H (98-107) mmol/L Carbon Dioxide 11 L 11.8 L (22-30) mmol/L BUN 79 H 69.1 H (7-17) mg/dL Creatinine 3.04 H 2.1 H (0.52-1.04) mg/dL Glucose 166 H 89 (74-99) mg/dL Calcium 8.7 8.0 L (8.4-10.2) mg/dL Adrenal panel 06/09/23 06/10/23 Range/Units 14:40 05:16 Sodium 134 L 137 (137-145) mmol/L Potassium 5.2 H 4.1 (3.5-5.1) mmol/L Chloride 106 112 H (98-107) mmol/L Carbon Dioxide 11 L 11.8 L (22-30) mmol/L BUN 79 H 69.1 H (7-17) mg/dL Creatinine 3.04 H 2.1 H (0.52-1.04) mg/dL Glucose 166 H 89 (74-99) mg/dL Calcium 8.7 8.0 L (8.4-10.2) mg/dL Total Bilirubin 0.3 <0.2 L (0.2-1.3) mg/dL AST 31 18 (14-36) U/L ALT 22 14 (4-34) U/L Alkaline Phosphatase 255 H 210 H (38-126) U/L Total Protein 7.3 6.2 (6.3-8.2) g/dL Albumin 2.6 L 2.0 L (3.5-5.0) g/dL
[2023-06-10 16:04] LABS: Iron 11 UG/DL (50-170); Total Iron Binding Capacity 110 UG/DL (228-460)
[2023-06-10 16:34] LABS: Vitamin B12 >3600.0 pg/mL (200.0-944.0)
[2023-06-10 17:12] LABS: Glucose,Whole Blood 155 mg/dL (70-110)
[2023-06-10 18:45] LABS: Appearance,Urine Turbid (Clear); Bacteria,Urine Occasional /hpf; Bilirubin,Urine Negative (Negative); Blood,Urine Moderate (Negative); Color,Urine Yellow; Glucose,Urine (UA) Negative (Negative); Ketones,Urine Negative (Negative); Leukocyte Esterase,Urine Large (Negative); Nitrite,Urine Negative (Negative); Protein,Urine 2+ (Negative); RBC,Urine 170 /hpf (0-5); Urobilinogen,Urine <2.0 mg/dL (<2.0); WBC,Urine >182 /hpf (0-5)
[2023-06-10 20:29] LABS: Glucose,Whole Blood 174 mg/dL (70-110)
[2023-06-11] MEDS: MEROPENEM 500 MG in SODIUM CHLORIDE 0.9% 100 ML IVPB SCH ×2 (00:46→09:51)
[2023-06-11] MEDS: DEXTROSE 5% IN WATER 1,000 ML with SODIUM BICARB (1 MEQ/ML) 150 ML IV SCH (06:16)
[2023-06-11] MEDS: CLINDAMYCIN 600 MG in DEXTROSE 5% IN WATER 50 ML IVPB SCH ×4 (06:16→14:45)
[2023-06-11 07:01] LABS: Glucose,Whole Blood 153 mg/dL (70-110)
--- NOTE | 2023-06-11 08:18 | P.CONS ---
History of Present Illness - Reason for Consult Consult date: 06/10/23 bacteremia Requesting physician: Ken E Sheet - Chief Complaint Worsening sacral wound and concern for possible UTI x 1 day - History of Present Illness Patient is a 57-year-old female with a past medical history significant for diabetes mellitus reflux spina bifid hydrocephalus bedbound state currently residential resident patient apparently did have a chronic nonhealing wound to the sacral area for more than a year patient apparently was sent to the ER yesterday afternoon for evaluation of UTI versus worsening of her sacral pressure ulcer as per documentation in the ER patient patient mention she did have this wound that has been nonhealing for more than a year and has been taking care at the residential patient are very clear about the treatment she is getting for it patient also have a urostomy with valdes attached to it patient did have a cloudy whitish urine drainage patient denies having any headache or URI symptoms no chest pain or shortness of breath or cough some nausea but no vomiting no abdominal pain he did have some discomfort to the sacral wound area unable to quantify it any further denies any foul-smelling drainage from it was not very clear about the local treatment been provided to her the local wound patient on presentation to the hospital was afebrile she was tachycardic mildly hypotensive and hypoxic requiring 3 L nasal cannula oxygen patient did have a white count of 26.4 with a left shift did have elevated BUN and creatinine levels labs are normal procalcitonin 6.80 urine has been positive blood cultures came back positive with group B strep and E. coli ESBL patient was started on meropenem infectious disease was consulted for further management of antibiotic therapy Review of Systems Positive point and negatives has been mentioned in the HPI, complete review of systems was performed and all other systems are negative Past Medical History Past Medical History: Asthma, Diabetes Mellitus, GERD/Reflux, Musculoskeletal Disorder, Neurologic Disorder, Pneumonia, Renal Disease, Sleep Apnea/CPAP/BIPAP Additional Past Medical History / Comment(s): 08-09-15 admitted with cellulitis of external nose. other pst medical hx includes: hx. 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 ESBL MDRO Source:: MRSA BUTTOCK, ESBL LEG Past Surgical History: Back Surgery, Bowel Resection, Orthopedic Surgery Additional Past Surgical History / Comment(s): multiple surgeries for hydroceph alus, urostomy x 2, multiple hip,leg, foot surgeries, ankles fused, [facility] shunt, pt stated back sx was to remove spina bifida growth, egd Past Anesthesia/Blood Transfusion Reactions: No Reported Reaction Past Psychological History: No Psychological Hx Reported Smoking Status: Never smoker Past Alcohol Use History: None Reported Past Drug Use History: None Reported - Past Family History Father Family Medical History: Hypertension Additional Family Medical History / Comment(s): gout, heart murmur, rheumatic fever as child, tia Mother Family Medical History: Cancer, Hypertension Additional Family Medical History / Comment(s): interstitial cystitis, breast cancer x2, diet controlled diabetic, hiatal hernia Medications and Allergies Home Medications Medication Instructions Recorded Confirmed Type allopurinoL [Zyloprim] 300 mg PO DAILY 10/04/14 06/09/23 History Torsemide [Demadex] 20 mg PO BID 30 Days #60 tab 04/30/22 06/09/23 Rx Calcium Carbonate 500 mg PO DAILY 06/09/23 06/09/23 History Cholestyramine (with Sugar) 4 gm PO TID PRN 06/09/23 06/09/23 History [Questran Packet] Ferrous Sulfate [Iron (65 MG 325 mg PO DAILY 06/09/23 06/09/23 History Elemental)] Folic Acid 1 mg PO DAILY 06/09/23 06/09/23 History Ibuprofen [Motrin Ib] 400 mg PO Q6H PRN 06/09/23 06/09/23 History Lidocaine Viscous 2% [Xylocaine 5 ml MUCOUS MEM Q4H PRN 06/09/23 06/09/23 Histor y Viscous] Magnesium Oxide [Mag-Ox] 400 mg PO DAILY 06/09/23 06/09/23 History Menthol [Icy Hot] 2 patch TRANSDERM DAILY 06/09/23 06/09/23 History Thiamine [Vitamin B-1] 100 mg PO DAILY 06/09/23 06/09/23 History hydrOXYzine HCL [Atarax] 25 mg PO Q8HR PRN 06/09/23 06/09/23 History Ertapenem [INVanz] 1 gm IVPB Q24H #42 each 06/18/23 Rx HYDROcodone/APAP 5-325MG [Cornelia 1 tab PO Q4H PRN 3 Days #18 tab 06/18/23 Rx 5-325] Lidocaine Viscous 2% [Xylocaine 30 ml PO AC-TID #210 ml 06/18/23 Rx Viscous] Allergies Allergy/AdvReac Type Severity Reaction Status Date / Time amoxicillin trihydrate Allergy Rash/Hives Verified 06/09/23 17:28 [From Augmentin] banana Allergy Unknown Verified 06/09/23 17:28 chestnut Allergy Unknown Verified 06/09/23 17:28 ciprofloxacin [From Cipro] Allergy Rash/Hives Verified 06/09/23 17:28 ciprofloxacin HCl Allergy Rash/Hives Verified 06/09/23 17:28 [From Cipro] kiwi Allergy Unknown Verified 06/09/23 17:28 Latex, Natural Rubber Allergy Anaphylaxis Verified 06/09/23 17:28 methylprednisolone Allergy Rash/Hives Verified 06/09/23 17:28 [From Solu-Medrol] midazolam Allergy Unknown Verified 06/09/23 17:28 nitrofurantoin Allergy Rash/Hives Verified 06/09/23 17:28 macrocrystalline [From Macrodantin] oxacillin Allergy Unknown Verified 06/09/23 17:28 potassium clavulanate Allergy Rash/Hives Verified 06/09/23 17:28 [From Augmentin] Sulfa (Sulfonamide Allergy Rash/Hives Verified 06/09/23 17:28 Antibiotics) vancomycin Allergy Anaphylaxis Verified 06/09/23 17:28 Beef Containing Products AdvReac Diarrhea Verified 06/09/23 17:28 [Beef] sucralose AdvReac Diarrhea Verified 06/09/23 17:28 [From Splenda (sucralose)] callagen Allergy Rash/Hives Uncoded 05/28/22 17:24 Physical Exam Vitals: Vital Signs Temp Pulse Pulse Resp BP BP Pulse Ox 06/10/23 07:32 98.4 F 118 H 20 92/84 97 06/10/23 03:30 103/68 06/10/23 01:06 98.4 F 106 H 18 94/58 94 L 06/09/23 23:50 97.3 F L 109 H 20 92/57 95 12/20/23 22:36 100 91/63 97 06/09/23 22:12 98 22 92/54 96 06/09/23 21:38 93 20 97/63 98 06/09/23 21:30 20 95/55 97 06/09/23 21:00 83/52 06/09/23 20:00 95 18 80/45 97 06/09/23 19:23 98.6 F 93 18 85/55 97 06/09/23 18:05 98.3 F 92 16 92/57 96 06/09/23 13:41 97.6 F 91 18 94/60 97 Intake and Output 06/09/23 06/10/23 06/10/23 22:59 06:59 14:59 Output Total 800 Balance -800 Output: Drainage 800 Abdomen 800 Other: Voiding Method Ileal Conduit (Right) Ileal Conduit (Right) Weight 140 kg GENERAL DESCRIPTION: Middle-age female lying in bed, no distress. No tachypnea or accessory muscle of respiration use. HEENT: Shows Pallor , no scleral icterus. Oral mucous membrane is dry. NECK: Trachea central, no thyromegaly. LUNGS: Unlabored breathing. Decreased breath sound the base HEART: S1, S2, regular rate and rhythm. No loud murmur ABDOMEN: Soft, no tenderness , guarding or rigidity, no organomegaly EXTREMITIES: No edema feet SKIN: Patient did have a stage IV sacral pressure ulcer with brown palpable minimal surrounding swelling patient also have unstageable pressure ulcer to the right hip area no foul-smelling drainage NEUROLOGICAL: The patient is lethargic but arousable , mood and affect normal. Results CBC & Chem 7: 06/18/23 06:01 06/18/23 06:01 Labs: Abnormal Lab Results - Last 24 Hours (Table) 06/09/23 06/09/23 06/09/23 Range/Units 14:40 14:40 14:40 WBC 26.4 H (3.8-10.6) k/uL RBC 2.75 L (3.80-5.40) m/uL Hgb 7.3 L (11.4-16.0) gm/dL Hct 24.8 L (34.0-46.0) % MCH (27.0-32.0) pg MCHC 29.3 L (31.0-37.0) g/dL RDW 18.8 H (11.5-15.5) % Plt Count 462 H (150-450) k/uL Immature Gran # (0.00-0.04) X 10*3/uL Neutrophils # (1.80-7.70) X 10*3/uL Neutrophils # (Manual) 24.80 H (1.3-7.7) k/uL Eosinophils # (0.04-0.35) X 10*3/uL NRBC/100 WBC Diff (0.00-0.01) X 10*3/uL APTT 31.0 H (22.0-30.0) sec Sodium 134 L (137-145) mmol/L Potassium 5.2 H (3.5-5.1) mmol/L Chloride (96-109) mmol/L Carbon Dioxide 11 L (22-30) mmol/L Anion Gap (4.00-12.00) mmol/L BUN 79 H (7-17) mg/dL Creatinine 3.04 H (0.52-1.04) mg/dL Est GFR (CKD-EPI) (>=60) BUN/Creatinine Ratio (12.00-20.00) Ratio Glucose 166 H (74-99) mg/dL Calcium (8.7-10.3) mg/dL Phosphorus 5.5 H (2.5-4.5) mg/dL Total Bilirubin (0.3-1.2) mg/dL Alkaline Phosphatase 255 H (38-126) U/L Albumin 2.6 L (3.5-5.0) g/dL Globulin (1.6-3.3) g/dL Albumin/Globulin Ratio (1.60-3.17) Ratio Urine Appearance (Clear) Urine Protein (Negative) Urine Blood (Negative) Ur Leukocyte Esterase (Negative) Urine WBC (0-5) /hpf Urine WBC Clumps (None) /hpf Urine Bacteria (None) /hpf 06/09/23 06/10/23 06/10/23 Range/Units 20:45 05:16 05:16 WBC 20.17 H (3.8-10.6) k/uL RBC 2.48 L (3.80-5.40) m/uL Hgb 6.3 A* (11.4-16.0) gm/dL Hct 22.2 L (34.0-46.0) % MCH 25.4 L (27.0-32.0) pg MCHC 28.4 L (31.0-37.0) g/dL RDW 19.7 H (11.5-15.5) % Plt Count (150-450) k/uL Immature Gran # 0.24 H (0.00-0.04) X 10*3/uL Neutrophils # 17.47 H (1.80-7.70) X 10*3/uL Neutrophils # (Manual) (1.3-7.7) k/uL Eosinophils # 0.01 L (0.04-0.35) X 10*3/uL NRBC/100 WBC Diff 0.02 H (0.00-0.01) X 10*3/uL APTT (22.0-30.0) sec Sodium (137-145) mmol/L Potassium (3.5-5.1) mmol/L Chloride 112 H (96-109) mmol/L Carbon Dioxide 11.8 L (22-30) mmol/L Anion Gap 13.20 H (4.00-12.00) mmol/L BUN 69.1 H (7-17) mg/dL Creatinine 2.1 H (0.52-1.04) mg/dL Est GFR (CKD-EPI) 27 L (>=60) BUN/Creatinine Ratio 32.90 H (12.00-20.00) Ratio Glucose (74-99) mg/dL Calcium 8.0 L (8.7-10.3) mg/dL Phosphorus (2.5-4.5) mg/dL Total Bilirubin <0.2 L (0.3-1.2) mg/dL Alkaline Phosphatase 210 H (38-126) U/L Albumin 2.0 L (3.5-5.0) g/dL Globulin 4.2 H (1.6-3.3) g/dL Albumin/Globulin Ratio 0.48 L (1.60-3.17) Ratio Urine Appearance Turbid H (Clear) Urine Protein 3+ H (Negative) Urine Blood Large H (Negative) Ur Leukocyte Esterase Moderate H (Negative) Urine WBC >182 H (0-5) /hpf Urine WBC Clumps Many H (None) /hpf Urine Bacteria Many H (None) /hpf Microbiology - Last 24 Hours (Table) 06/09/23 14:40 Blood Culture Gram Stain - Preliminary Blood Assessment and Plan (1) Pressure injury of sacral region, stage 4 Status: Acute Code(s): L89.154 - PRESSURE ULCER OF SACRAL REGION, STAGE 4 SNOMED Code(s): 55718754006277 (2) Sepsis Status: Acute Code(s): A41.9 - SEPSIS, UNSPECIFIED ORGANISM SNOMED Code(s): 38521969 Plan: 1patient was in the hospital with sepsis in this patient who did have a tachycardia hypeotension elevated white count meeting criteria for SIRS/sepsis, source is likely infected sacral pressure ulcer and likely UTI 2-patient did have a positive blood culture with strep and he has been E. coli source likely infected sacral pressure ulcer/UTI 3-renal insufficiency and high risk of nephrotoxicity 4-patient with multiple antibiotic ALLERGIES that would limit the number of antibiotic safe to use 5-recommend surgical evaluation for debridement and deep cultures as there were evidence of some necrotic tissue that need to be debrided local wound care per the wound care team 6-meropenem 500 mg every 12 hours with the dose adjusted to the kidney function by pharmacy Plan of care discussed with admitting team as well as father and his stepmother at the bedside and all questions were answered in the layman terms We will follow on clinical condition and cultures to further adjust medication if needed Thank you for this consultation we will follow the patient along with you Dictation was produced using [employer] dictation software. please excuse any grammatical, word or spelling errors. Time with Patient: Greater than 30
[2023-06-11] MEDS: CALCIUM CARBONATE 500 MG CHEWABLE PO SCH (08:31)
[2023-06-11] MEDS: MAGNESIUM OXIDE 400 MG TAB PO SCH (08:32)
[2023-06-11] MEDS: FERROUS SULFATE 325 MG TAB PO SCH (08:32)
[2023-06-11] MEDS: THIAMINE 100 MG TAB PO SCH (08:32)
[2023-06-11] MEDS: allopurinoL 300 MG TAB PO SCH (08:32)
[2023-06-11] MEDS: FOLIC ACID 1 MG TAB PO SCH (08:32)
[2023-06-11] MEDS: PANTOPRAZOLE 40 MG/10 ML VIAL IV SCH (08:32)
[2023-06-11] MEDS: HYDROcodone/APAP 5-325MG 1 EACH TAB PO PRN ×2 (08:35→21:56)
[2023-06-11] MEDS ORDERED: BENZOCAINE SPRAY 1 CAN TOPICAL STA (10:30)
[2023-06-11] MEDS: MORPHINE SULFATE 4 MG/ML SYRINGE IV PRN ×2 (11:22→16:03)
--- NOTE | 2023-06-11 11:58 | P.PCN ---
Date of Procedure: 06/11/23 Procedure(s) Performed: PREOPERATIVE DIAGNOSIS: Right trochanteric decubitus ulcer POSTOPERATIVE DIAGNOSIS: Same PROCEDURE: Excisional debridement right trochanteric decubitus ulcer SURGEON: Romeo EBL: 5 mL ANESTHESIA: Topical COMPLICATIONS: None OPERATIVE PROCEDURE: Patient placed in the left cubitus position and her hospital bed. Hurricaine spray was utilized. The necrotic skin, subcutaneous fat, and muscle layer was excised sharply using a scalpel. Size of debridement 4 x 5 cm. Minimal bleeding was seen. Sterile dressing was applied. DISPOSITION: Stable
[2023-06-11 12:38] LABS: Glucose,Whole Blood 213 mg/dL (70-110)
--- NOTE | 2023-06-11 12:57 | P.PN ---
Subjective Patient is seen for follow-up for acute kidney injury. Labs are not available from today. Patient is maintained on IV bicarb. Urine output charted at 700 mL. Objective - Vital Signs Vital signs: Vital Signs Temp 98.8 F 06/11/23 07:02 Pulse 99 06/11/23 07:02 Resp 16 06/11/23 07:02 BP 95/58 06/11/23 07:02 Pulse Ox 96 06/11/23 11:09 FiO2 Intake & Output 06/10/23 06/11/23 06/11/23 18:59 06:59 18:59 Intake Total 920 Output Total 700 300 300 Balance 220 -300 -300 Weight 140 kg Intake: Intake, IV Titration 300 Amount Clindamycin 600 mg In 50 Dextrose 5% in Water 50 ml @ 50 mls/hr IVPB Q8H ALLIE Rx#:[id number] Dextrose 5% in Water 1, 150 000 ml @ 75 mls/hr IV . [id number] ALLIE with Sodium Bicarb (1 Meq/ml) 150 ml Rx#:[id number] Meropenem 500 mg In 100 Sodium Chloride 0.9% 100 ml @ 33.333 mls/hr IVPB Q12H ALLIE Rx#:[id number] Blood Product 620 Rc As-1 Unit 310 [id number] Output: Drainage 300 300 Abdomen 300 300 Urine 700 Other: Voiding Method Ileal Conduit (Right) Ileal Conduit (Right) Ileal Conduit (Right) - Exam Patient is awake, comfortable, no acute distress Examination of the heart S1 and S2 Examination of the lungs bilateral breath sounds are heard Abdomen is soft nontender Examination of lower extremities shows 1+ edema, patient has paraplegia - Labs CBC & Chem 7: 06/10/23 05:16 06/10/23 05:16 Labs: Abnormal Lab Results - Last 24 Hours (Table) 06/10/23 06/10/23 06/10/23 Range/Units 10:26 10:31 10:31 POC Glucose (mg/dL) (70-110) mg/dL Hemoglobin A1c 8.1 H (<=6.0) % Iron 11 L (50-170) UG/DL TIBC 110 L (228-460) UG/DL % Saturation 10.00 L (12.00-45.00) Transferrin 78.6 L (204.0-354.0) mg/dL Ferritin 1045.0 H (10.0-291.0) ng/mL Vitamin B12 >3600.0 H (200.0-944.0) pg/mL Procalcitonin (0.02-0.09) ng/mL Urine Appearance (Clear) Urine Protein (Negative) Urine Blood (Negative) Ur Leukocyte Esterase (Negative) Urine RBC (0-5) /hpf Urine WBC (0-5) /hpf Urine WBC Clumps (None) /hpf Urine Bacteria (None) /hpf Crossmatch See Detail 06/10/23 06/10/23 06/10/23 Range/Units 10:31 17:09 18:20 POC Glucose (mg/dL) 155 H (70-110) mg/dL Hemoglobin A1c (<=6.0) % Iron (50-170) UG/DL TIBC (228-460) UG/DL % Saturation (12.00-45.00) Transferrin (204.0-354.0) mg/dL Ferritin (10.0-291.0) ng/mL Vitamin B12 (200.0-944.0) pg/mL Procalcitonin 6.80 H (0.02-0.09) ng/mL Urine Appearance Turbid H (Clear) Urine Protein 2+ H (Negative) Urine Blood Moderate H (Negative) Ur Leukocyte Esterase Large H (Negative) Urine RBC 170 H (0-5) /hpf Urine WBC >182 H (0-5) /hpf Urine WBC Clumps Many H (None) /hpf Urine Bacteria Occasional H (None) /hpf Crossmatch 06/10/23 06/11/23 06/11/23 Range/Units 20:26 07:00 12:36 POC Glucose (mg/dL) 174 H 153 H 213 H (70-110) mg/dL Hemoglobin A1c (<=6.0) % Iron (50-170) UG/DL TIBC (228-460) UG/DL % Saturation (12.00-45.00) Transferrin (204.0-354.0) mg/dL Ferritin (10.0-291.0) ng/mL Vitamin B12 (200.0-944.0) pg/mL Procalcitonin (0.02-0.09) ng/mL Urine Appearance (Clear) Urine Protein (Negative) Urine Blood (Negative) Ur Leukocyte Esterase (Negative) Urine RBC (0-5) /hpf Urine WBC (0-5) /hpf Urine WBC Clumps (None) /hpf Urine Bacteria (None) /hpf Crossmatch Microbiology - Last 24 Hours (Table) 06/09/23 14:40 Blood Culture Gram Stain - Preliminary Blood Blood Culture - Preliminary Strep agalactiae - (group b) Gram Neg Bacilli Assessment and Plan Assessment: 1. Acute kidney injury, ATN currently nonoliguric and improving with IV hydration. UA shows significant pyuria. It is a specimen from urostomy/ileal conduit. 2. Sacral decub and right hip ulcer with concern for osteomyelitis 3. Severe anemia with hemoglobin of 6.3 mg/dL on admission status post packed RBCs transfusion. No active bleeding. 4. Gram-positive bacteremia 5. Sepsis with gram-positive bacteremia and wounds in the sacral area and right hip ulcer. 6. History of spina bifida and hydrocephalus 7. History of recurrent UTIs status post urostomy 8. Severe metabolic acidosis secondary to acute kidney injury, GI fluid loss Plan: Continue IV bicarb Check labs today and in a.m.
[2023-06-11 13:09] LABS: African American GFR (CKD) 55 (>60 ml/min/1.73 sqM); Anion Gap 14 mmol/L; Blood Urea Nitrogen 49 mg/dL (7-17); Carbon Dioxide 14 mmol/L (22-30); Chloride 117 mmol/L (98-107); Glucose 187 mg/dL (74-99); Non-African American GFR(CKD) 48 (>60 ml/min/1.73 sqM); Sodium 145 mmol/L (137-145)
[2023-06-11] MEDS ORDERED: Potassium Replacement Protocol 1 EACH MISC MISCELLANE PRN (13:29)
--- NOTE | 2023-06-11 13:32 | P.PN ---
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 Patient is wheelchair-bound. [facility] a [facility]. Nursing staff at the facility were concerned about worsening sacral decub and right trochanteric pressure ulcer. Patient has been having complaining of lethargy and weakness. There was no clear fever or chills. No complaint of nausea, abdominal pain. Initial lab work done in the ER showed WBC 26.4, hemoglobin 7.3, platelet count 462, sodium 134, potassium 5.2 BUS 79, creatinine 3.04 glucose 166 phosphorus 5.5 troponin 0.012 proBNP 3850 UA done showed nitrite negative, large amount of urine blood, leukocyte esterase moderate amount, urine WBC 182 EKG done in the ER showed heart rate of , no ST segment elevation or depression seen, no T-wave inversions seen. CT abdomen pelvis done showed no acute abnormality, distended gallbladder seen. Deep sacral decub and right decubitus ulcer with Chronic appearing underlying bony changes likely related to chronic osteomyelitis. Mild/moderate degenerative changes of the visualized spine at T10T 11. Patient admitted to internal medicine service 06/11. Patient seen and examined. Family the bedside. Patient underwent b edside debridement by general surgery. States pain is better controlled compared to yesterday. Vital signs stable REVIEW OF SYSTEMS: CONSTITUTIONAL: No fever, no malaise,. CARDIOVASCULAR: No chest pain, no palpitations, no syncope. PULMONARY: No shortness of breath, no cough, GASTROINTESTINAL: No diarrhea, no nausea, no vomiting, no abdominal pain. NEUROLOGICAL: No headaches, no weakness, Assessment and plan GENERAL: The patient is alert and oriented x3, not in any acute distress. Well developed, well nourished. HEENT: Pupils are round and equally reacting to light. EOMI. No scleral icterus. No conjunctival pallor. Normocephalic, atraumatic. No pharyngeal erythema. No thyromegaly. CARDIOVASCULAR: S1 and S2 present. No murmurs, rubs, or gallops. PULMONARY: Chest is clear to auscultation, no wheezing or crackles. ABDOMEN: Soft, nontender, nondistended, normoactive bowel sounds. No palpable organomegaly. Urostomy seen MUSCULOSKELETAL: Atrophy of lower extremities seen EXTREMITIES: No cyanosis, clubbing, or pedal edema. NEUROLOGICAL: Gross neurological examination did not reveal any focal deficits. SKIN: Stage IV sacral decub and stage IV pressure ulcer to right torchanter Assessment and plan Bacteremia Sepsis present on admission Stage IV sacral decub stage IV pressure ulcer to right torchanter Sacral decub and right decubitus ulcer with chronic underlying bony changes likely related to chronic osteomyelitis Hyponatremia Acute on chronic kidney disease Anemia Acute urinary tract infection, present on admission with failed outpatient therapy Past history of MRSA and ESBL of the wounds recurrent urinary tract infections Asthma history, not in exacerbation Diabetes mellitus, type II, insulin-dependent Gastroesophageal reflux disease Musculoskeletal disorder History of spina bifida with hydrocephalus Sapphire I malformation Chronic renal disease Sleep apnea with a CPAP Monitor vital signs Monitor CBC Monitor CMP Continue telemetry monitoring Follow-up on blood cultures Patient underwent Excisional debridement right trochanteric decubitus ulcer on 06/11 Follow-up on wound cultures Continue bicarb drip Potassium This morning was 3, replacement ordered Continue IV meropenem ID following Nephrology following Gen. surgery following Labs and medication were reviewed.. Continue same treatment. Continue with symptomatic treatment. Resume home medication. Monitor labs and vitals. DVT and GI prophylaxis. Further recommendations as per clinical course of the patient Dictation was produced using [employer] dictation software. please excuse any grammatical, word or spelling errors. Objective - Vital Signs Vital signs: Vital Signs Temp 98.2 F 06/11/23 11:55 Pulse 94 06/11/23 11:55 Resp 16 06/11/23 11:55 BP 95/59 06/11/23 11:55 Pulse Ox 98 06/11/23 11:55 FiO2 Intake & Output 06/10/23 06/11/23 06/11/23 18:59 06:59 18:59 Intake Total 920 Output Total 700 300 300 Balance 220 -300 -300 Weight 140 kg Intake: Intake, IV Titration 300 Amount Clindamycin 600 mg In 50 Dextrose 5% in Water 50 ml @ 50 mls/hr IVPB Q8H [facility] Rx#:[id number] Dextrose 5% in Water 1, 150 000 ml @ 75 mls/hr IV . [id number] [facility] with Sodium Bicarb (1 Meq/ml) 150 ml Rx#:[id number] Meropenem 500 mg In 100 Sodium Chloride 0.9% 100 ml @ 33.333 mls/hr IVPB Q12H [facility] Rx#:[id number] Blood Product 620 Rc As-1 Unit 310 [id number] Output: Drainage 300 300 Abdomen 300 300 Urine 700 Other: Voiding Method Ileal Conduit (Right) Ileal Conduit (Right) Ileal Conduit (Right) - Labs CBC & Chem 7: 06/10/23 05:16 06/11/23 12:06 Labs: Abnormal Lab Results - Last 24 Hours (Table) 06/10/23 06/10/23 06/10/23 Range/Units 10:26 10:31 10:31 Potassium (3.5-5.1) mmol/L Chloride (98-107) mmol/L Carbon Dioxide (22-30) mmol/L BUN (7-17) mg/dL Creatinine (0.52-1.04) mg/dL Glucose (74-99) mg/dL POC Glucose (mg/dL) (70-110) mg/dL Hemoglobin A1c 8.1 H (<=6.0) % Calcium (8.4-10.2) mg/dL Iron 11 L (50-170) UG/DL TIBC 110 L (228-460) UG/DL % Saturation 10.00 L (12.00-45.00) Transferrin 78.6 L (204.0-354.0) mg/dL Ferritin 1045.0 H (10.0-291.0) ng/mL Vitamin B12 >3600.0 H (200.0-944.0) pg/mL Procalcitonin (0.02-0.09) ng/mL Urine Appearance (Clear) Urine Protein (Negative) Urine Blood (Negative) Ur Leukocyte Esterase (Negative) Urine RBC (0-5) /hpf Urine WBC (0-5) /hpf Urine WBC Clumps (None) /hpf Urine Bacteria (None) /hpf Crossmatch See Detail 06/10/23 06/10/23 06/10/23 Range/Units 10:31 17:09 18:20 Potassium (3.5-5.1) mmol/L Chloride (98-107) mmol/L Carbon Dioxide (22-30) mmol/L BUN (7-17) mg/dL Creatinine (0.52-1.04) mg/dL Glucose (74-99) mg/dL POC Glucose (mg/dL) 155 H (70-110) mg/dL Hemoglobin A1c (<=6.0) % Calcium (8.4-10.2) mg/dL Iron (50-170) UG/DL TIBC (228-460) UG/DL % Saturation (12.00-45.00) Transferrin (204.0-354.0) mg/dL Ferritin (10.0-291.0) ng/mL Vitamin B12 (200.0-944.0) pg/mL Procalcitonin 6.80 H (0.02-0.09) ng/mL Urine Appearance Turbid H (Clear) Urine Protein 2+ H (Negative) Urine Blood Moderate H (Negative) Ur Leukocyte Esterase Large H (Negative) Urine RBC 170 H (0-5) /hpf Urine WBC >182 H (0-5) /hpf Urine WBC Clumps Many H (None) /hpf Urine Bacteria Occasional H (None) /hpf Crossmatch 06/10/23 06/11/23 06/11/23 Range/Units 20:26 07:00 12:06 Potassium 3.0 L (3.5-5.1) mmol/L Chloride 117 H (98-107) mmol/L Carbon Dioxide 14 L (22-30) mmol/L BUN 49 H (7-17) mg/dL Creatinine 1.26 H (0.52-1.04) mg/dL Glucose 187 H (74-99) mg/dL POC Glucose (mg/dL) 174 H 153 H (70-110) mg/dL Hemoglobin A1c (<=6.0) % Calcium 8.0 L (8.4-10.2) mg/dL Iron (50-170) UG/DL TIBC (228-460) UG/DL % Saturation (12.00-45.00) Transferrin (204.0-354.0) mg/dL Ferritin (10.0-291.0) ng/mL Vitamin B12 (200.0-944.0) pg/mL Procalcitonin (0.02-0.09) ng/mL Urine Appearance (Clear) Urine Protein (Negative) Urine Blood (Negative) Ur Leukocyte Esterase (Negative) Urine RBC (0-5) /hpf Urine WBC (0-5) /hpf Urine WBC Clumps (None) /hpf Urine Bacteria (None) /hpf Crossmatch 06/11/23 Range/Units 12:36 Potassium (3.5-5.1) mmol/L Chloride (98-107) mmol/L Carbon Dioxide (22-30) mmol/L BUN (7-17) mg/dL Creatinine (0.52-1.04) mg/dL Glucose (74-99) mg/dL POC Glucose (mg/dL) 213 H (70-110) mg/dL Hemoglobin A1c (<=6.0) % Calcium (8.4-10.2) mg/dL Iron (50-170) UG/DL TIBC (228-460) UG/DL % Saturation (12.00-45.00) Transferrin (204.0-354.0) mg/dL Ferritin (10.0-291.0) ng/mL Vitamin B12 (200.0-944.0) pg/mL Procalcitonin (0.02-0.09) ng/mL Urine Appearance (Clear) Urine Protein (Negative) Urine Blood (Negative) Ur Leukocyte Esterase (Negative) Urine RBC (0-5) /hpf Urine WBC (0-5) /hpf Urine WBC Clumps (None) /hpf Urine Bacteria (None) /hpf Crossmatch Microbiology - Last 24 Hours (Table) 06/09/23 14:40 Blood Culture Gram Stain - Preliminary Blood Blood Culture - Preliminary Strep agalactiae - (group b) Gram Neg Bacilli
[2023-06-11] MEDS: POTASSIUM CHLORIDE ER 20 MEQ TAB.ER PO SCH ×3 (14:45→17:11)
--- NOTE | 2023-06-11 16:23 | P.PN ---
Subjective Progress Note Date: 06/11/23 Principal diagnosis: Reason for follow-up is ESBL bacteremia UTI and infected pressure ulcer Patient is a 57-year-old female with a past medical history significant for diabetes mellitus reflux spina bifid hydrocephalus bedbound state currently [facility], patient have chronic nonhealing wound to the sacral and the right hip area sent to the ER for concerning for possible infection did have a positive blood culture with ESBL E. coli, patient did have right trochanteric pressure ulcer debridement at the bedside by surgery on 06/11/2023 On today's evaluation that is 06/11/2023 patient remains to be afebrile, the patient is breathing comfortably on 3 L nasal cannula oxygen denies any chest pain shortness of breath or cough complaining of mostly pain to the sacral wound area no nausea vomiting or any diarrhea Patient did have a creatinine 1.26, no CBC was done today blood culture with ESBL and Streptococcus agalactiae Objective - Vital Signs Vital signs: Vital Signs Temp 98.2 F 06/11/23 11:55 Pulse 94 06/11/23 11:55 Resp 16 06/11/23 11:55 BP 95/59 06/11/23 11:55 Pulse Ox 98 06/11/23 11:55 FiO2 Intake & Output 06/10/23 06/11/23 06/11/23 18:59 06:59 18:59 Intake Total 920 Output Total 700 300 300 Balance 220 -300 -300 Weight 140 kg Intake: Intake, IV Titration 300 Amount Clindamycin 600 mg In 50 Dextrose 5% in Water 50 ml @ 50 mls/hr IVPB Q8H [facility] Rx#:[id number] Dextrose 5% in Water 1, 150 000 ml @ 75 mls/hr IV . [id number] [facility] with Sodium Bicarb (1 Meq/ml) 150 ml Rx#:[id number] Meropenem 500 mg In 100 Sodium Chloride 0.9% 100 ml @ 33.333 mls/hr IVPB Q12H [facility] Rx#:[id number] Blood Product 620 Rc As-1 Unit 310 [id number] Output: Drainage 300 300 Abdomen 300 300 Urine 700 Other: Voiding Method Ileal Conduit (Right) Ileal Conduit (Right) Ileal Conduit (Right) - Exam GENERAL DESCRIPTION: Middle-aged female lying in bed in no distress RESPIRATORY SYSTEM: Unlabored breathing , decreased breath sounds at bases HEART: S1 S2 regular rate and rhythm , ABDOMEN: Soft , no tenderness EXTREMITIES: No edema feet - Labs CBC & Chem 7: 06/10/23 05:16 06/11/23 12:06 Labs: Abnormal Lab Results - Last 24 Hours (Table) 06/10/23 06/10/23 06/10/23 Range/Units 10:26 10:31 10:31 Potassium (3.5-5.1) mmol/L Chloride (98-107) mmol/L Carbon Dioxide (22-30) mmol/L BUN (7-17) mg/dL Creatinine (0.52-1.04) mg/dL Glucose (74-99) mg/dL POC Glucose (mg/dL) (70-110) mg/dL Hemoglobin A1c 8.1 H (<=6.0) % Calcium (8.4-10.2) mg/dL Iron 11 L (50-170) UG/DL TIBC 110 L (228-460) UG/DL % Saturation 10.00 L (12.00-45.00) Transferrin 78.6 L (204.0-354.0) mg/dL Ferritin 1045.0 H (10.0-291.0) ng/mL Vitamin B12 >3600.0 H (200.0-944.0) pg/mL Procalcitonin (0.02-0.09) ng/mL Urine Appearance (Clear) Urine Protein (Negative) Urine Blood (Negative) Ur Leukocyte Esterase (Negative) Urine RBC (0-5) /hpf Urine WBC (0-5) /hpf Urine WBC Clumps (None) /hpf Urine Bacteria (None) /hpf Crossmatch See Detail 06/10/23 06/10/23 06/10/23 Range/Units 10:31 17:09 18:20 Potassium (3.5-5.1) mmol/L Chloride (98-107) mmol/L Carbon Dioxide (22-30) mmol/L BUN (7-17) mg/dL Creatinine (0.52-1.04) mg/dL Glucose (74-99) mg/dL POC Glucose (mg/dL) 155 H (70-110) mg/dL Hemoglobin A1c (<=6.0) % Calcium (8.4-10.2) mg/dL Iron (50-170) UG/DL TIBC (228-460) UG/DL % Saturation (12.00-45.00) Transferrin (204.0-354.0) mg/dL Ferritin (10.0-291.0) ng/mL Vitamin B12 (200.0-944.0) pg/mL Procalcitonin 6.80 H (0.02-0.09) ng/mL Urine Appearance Turbid H (Clear) Urine Protein 2+ H (Negative) Urine Blood Moderate H (Negative) Ur Leukocyte Esterase Large H (Negative) Urine RBC 170 H (0-5) /hpf Urine WBC >182 H (0-5) /hpf Urine WBC Clumps Many H (None) /hpf Urine Bacteria Occasional H (None) /hpf Crossmatch 06/10/23 06/11/23 06/11/23 Range/Units 20:26 07:00 12:06 Potassium 3.0 L (3.5-5.1) mmol/L Chloride 117 H (98-107) mmol/L Carbon Dioxide 14 L (22-30) mmol/L BUN 49 H (7-17) mg/dL Creatinine 1.26 H (0.52-1.04) mg/dL Glucose 187 H (74-99) mg/dL POC Glucose (mg/dL) 174 H 153 H (70-110) mg/dL Hemoglobin A1c (<=6.0) % Calcium 8.0 L (8.4-10.2) mg/dL Iron (50-170) UG/DL TIBC (228-460) UG/DL % Saturation (12.00-45.00) Transferrin (204.0-354.0) mg/dL Ferritin (10.0-291.0) ng/mL Vitamin B12 (200.0-944.0) pg/mL Procalcitonin (0.02-0.09) ng/mL Urine Appearance (Clear) Urine Protein (Negative) Urine Blood (Negative) Ur Leukocyte Esterase (Negative) Urine RBC (0-5) /hpf Urine WBC (0-5) /hpf Urine WBC Clumps (None) /hpf Urine Bacteria (None) /hpf Crossmatch 06/11/23 Range/Units 12:36 Potassium (3.5-5.1) mmol/L Chloride (98-107) mmol/L Carbon Dioxide (22-30) mmol/L BUN (7-17) mg/dL Creatinine (0.52-1.04) mg/dL Glucose (74-99) mg/dL POC Glucose (mg/dL) 213 H (70-110) mg/dL Hemoglobin A1c (<=6.0) % Calcium (8.4-10.2) mg/dL Iron (50-170) UG/DL TIBC (228-460) UG/DL % Saturation (12.00-45.00) Transferrin (204.0-354.0) mg/dL Ferritin (10.0-291.0) ng/mL Vitamin B12 (200.0-944.0) pg/mL Procalcitonin (0.02-0.09) ng/mL Urine Appearance (Clear) Urine Protein (Negative) Urine Blood (Negative) Ur Leukocyte Esterase (Negative) Urine RBC (0-5) /hpf Urine WBC (0-5) /hpf Urine WBC Clumps (None) /hpf Urine Bacteria (None) /hpf Crossmatch Microbiology - Last 24 Hours (Table) 06/09/23 14:40 Blood Culture Gram Stain - Preliminary Blood Blood Culture - Preliminary Strep agalactiae - (group b) Gram Neg Bacilli Assessment and Plan (1) Bacteremia Current Visit: Yes Status: Acute Code(s): R78.81 - BACTEREMIA SNOMED Code( s): 8625513 (2) Allergy to multiple antibiotics Current Visit: Yes Status: Acute Code(s): Z88.1 - ALLERGY STATUS TO OTHER ANTIBIOTIC AGENTS SNOMED Code(s): 907492787 (3) Pressure injury of sacral region, stage 4 Current Visit: Yes Status: Acute Code(s): L89.154 - PRESSURE ULCER OF SACRAL REGION, STAGE 4 SNOMED Code(s): 67387326465233 (4) Sepsis Current Visit: Yes Status: Acute Code(s): A41.9 - SEPSIS, UNSPECIFIED ORGANISM SNOMED Code(s): 06681710 (5) UTI (urinary tract infection) Current Visit: Yes Status: Acute Code(s): N39.0 - URINARY TRACT INFECTION, SITE NOT SPECIFIED SNOMED Code(s): 63643041 Plan: 1patient was in the hospital with sepsis in this patient who did have a tachycardia hypeotension elevated white count meeting criteria for SIRS/sepsis, source is likely infected sacral pressure ulcer and likely UTI 2-patient did have a positive blood culture with strep and he has been E. coli source likely infected sacral pressure ulcer/UTI 3-renal insufficiency and high risk of nephrotoxicity 4-patient with multiple antibiotic ALLERGIES that would limit the number of antibiotic safe to use 5patient has been evaluated by general surgery and did have a debridement of the right trochanteric pressure ulcer 6patient to continue with the meropenem blood cultures have been repeated document clearance local wound care to continue per the wound care team Dictation was produced using [employer]ation software. please excuse any grammatical, word or spelling errors.
[2023-06-11 17:07] LABS: Glucose,Whole Blood 205 mg/dL (70-110)
[2023-06-11 20:14] LABS: Glucose,Whole Blood 118 mg/dL (70-110)
[2023-06-11] MEDS: MEROPENEM 1 GM in SODIUM CHLORIDE 0.9% 100 ML IVPB SCH (21:49)
[2023-06-12] MEDS: CLINDAMYCIN 600 MG in DEXTROSE 5% IN WATER 50 ML IVPB SCH ×8 (00:21→22:28)
[2023-06-12] MEDS: DEXTROSE 5% IN WATER 1,000 ML with SODIUM BICARB (1 MEQ/ML) 150 ML IV SCH ×2 (02:46→14:14)
[2023-06-12 07:35] LABS: Glucose,Whole Blood 113 mg/dL (70-110)
[2023-06-12] MEDS: MEROPENEM 1 GM in SODIUM CHLORIDE 0.9% 100 ML IVPB SCH ×2 (08:04→15:59)
[2023-06-12] MEDS: CALCIUM CARBONATE 500 MG CHEWABLE PO SCH (08:04)
[2023-06-12] MEDS: FERROUS SULFATE 325 MG TAB PO SCH (08:04)
[2023-06-12] MEDS: THIAMINE 100 MG TAB PO SCH (08:04)
[2023-06-12] MEDS: MAGNESIUM OXIDE 400 MG TAB PO SCH (08:04)
[2023-06-12] MEDS: allopurinoL 300 MG TAB PO SCH (08:04)
[2023-06-12] MEDS: PANTOPRAZOLE 40 MG/10 ML VIAL IV SCH (08:04)
[2023-06-12] MEDS: FOLIC ACID 1 MG TAB PO SCH (08:04)
[2023-06-12 09:29] LABS: HCT 22.3 % (37.2-46.3); HGB 6.8 g/dL (12.0-15.0); MCH 26.9 pg (27.0-32.0); MCHC 30.5 g/dL (32.0-37.0); MCV 88.1 FL (80.0-97.0); Mean Platelet Volume 10.1 FL (9.5-12.2); NRBC Per 100 WBC 0.03 X 10*3/uL (0.00-0.01); Platelet Count 223 X 10*3/uL (140-440); RBC 2.53 X 10*6/uL (4.10-5.20); RDW 18.4 % (11.5-14.5); WBC 10.59 X 10*3/uL (4.50-10.00)
[2023-06-12 09:50] LABS: ALT 7 U/L (8-44); AST <5 U/L (13-35); Albumin 1.7 g/dL (3.8-4.9); Albumin/Globulin Ratio 0.42 Ratio (1.60-3.17); Alkaline Phosphatase 173 U/L (41-126); BUN/Creat Ratio 54.86 Ratio (12.00-20.00); Blood Urea Nitrogen 38.4 mg/dL (9.0-27.0); Calcium 7.1 mg/dL (8.7-10.3); Chloride 100 mmol/L (96-109); Glucose 490 mg/dL (70-110); Potassium 3.3 mmol/L (3.5-5.5); Sodium 130 mmol/L (135-145); Total Bilirubin <0.2 mg/dL (0.3-1.2); Total Protein 5.7 g/dL (6.2-8.2)
--- NOTE | 2023-06-12 11:32 | P.PN ---
Subjective Patient is seen for follow-up for acute kidney injury. Serum creatinine improved to 0.7 and CO2 is improved to 20. Hemoglobin at 6.8 g/dL today. Patient is maintained on IV bicarb. Urine output charted at 1200 mL. Objective - Vital Signs Vital signs: Vital Signs Temp 97.7 F 06/12/23 07:24 Pulse 84 06/12/23 07:24 Resp 16 06/12/23 08:00 BP 96/60 06/12/23 07:24 Pulse Ox 99 06/12/23 09:57 FiO2 Intake & Output 06/11/23 06/12/23 06/12/23 18:59 06:59 18:59 Output Total 1500 800 Balance -1500 -800 Output: Drainage 300 800 Abdomen 300 800 Urine 1200 Other: Voiding Method Ileal Conduit (Right) Ileal Conduit (Right) Ileal Conduit (Right) - Exam Patient is awake, comfortable, no acute distress Examination of the heart S1 and S2 Examination of the lungs bilateral breath sounds are heard Abdomen is soft nontender Examination of lower extremities shows 1+ edema, patient has paraplegia - Labs CBC & Chem 7: 06/12/23 06:02 06/12/23 06:02 Labs: Abnormal Lab Results - Last 24 Hours (Table) 06/10/23 06/11/23 06/11/23 Range/Units 10:26 12:06 12:36 WBC (4.50-10.00) X 10*3/uL RBC (4.10-5.20) X 10*6/uL Hgb (12.0-15.0) g/dL Hct (37.2-46.3) % MCH (27.0-32.0) pg MCHC (32.0-37.0) g/dL RDW (11.5-14.5) % NRBC/100 WBC Diff (0.00-0.01) X 10*3/uL Sodium (135-145) mmol/L Potassium 3.0 L (3.5-5.1) mmol/L Chloride 117 H (98-107) mmol/L Carbon Dioxide 14 L (22-30) mmol/L BUN 49 H (7-17) mg/dL Creatinine 1.26 H (0.52-1.04) mg/dL BUN/Creatinine Ratio (12.00-20.00) Ratio Glucose 187 H (74-99) mg/dL POC Glucose (mg/dL) 213 H (70-110) mg/dL Calcium 8.0 L (8.4-10.2) mg/dL Total Bilirubin (0.3-1.2) mg/dL AST (13-35) U/L ALT (8-44) U/L Alkaline Phosphatase (41-126) U/L Total Protein (6.2-8.2) g/dL Albumin (3.8-4.9) g/dL Globulin (1.6-3.3) g/dL Albumin/Globulin Ratio (1.60-3.17) Ratio Crossmatch See Detail 06/11/23 06/11/23 06/12/23 Range/Units 17:06 20:12 06:02 WBC 10.59 H (4.50-10.00) X 10*3/uL RBC 2.53 L (4.10-5.20) X 10*6/uL Hgb 6.8 A* (12.0-15.0) g/dL Hct 22.3 L (37.2-46.3) % MCH 26.9 L (27.0-32.0) pg MCHC 30.5 L (32.0-37.0) g/dL RDW 18.4 H (11.5-14.5) % NRBC/100 WBC Diff 0.03 H (0.00-0.01) X 10*3/uL Sodium (135-145) mmol/L Potassium (3.5-5.1) mmol/L Chloride (98-107) mmol/L Carbon Dioxide (22-30) mmol/L BUN (7-17) mg/dL Creatinine (0.52-1.04) mg/dL BUN/Creatinine Ratio (12.00-20.00) Ratio Glucose (74-99) mg/dL POC Glucose (mg/dL) 205 H 118 H (70-110) mg/dL Calcium (8.4-10.2) mg/dL Total Bilirubin (0.3-1.2) mg/dL AST (13-35) U/L ALT (8-44) U/L Alkaline Phosphatase (41-126) U/L Total Protein (6.2-8.2) g/dL Albumin (3.8-4.9) g/dL Globulin (1.6-3.3) g/dL Albumin/Globulin Ratio (1.60-3.17) Ratio Crossmatch 06/12/23 06/12/23 Range/Units 06:02 07:34 WBC (4.50-10.00) X 10*3/uL RBC (4.10-5.20) X 10*6/uL Hgb (12.0-15.0) g/dL Hct (37.2-46.3) % MCH (27.0-32.0) pg MCHC (32.0-37.0) g/dL RDW (11.5-14.5) % NRBC/100 WBC Diff (0.00-0.01) X 10*3/uL Sodium 130 L (135-145) mmol/L Potassium 3.3 L (3.5-5.1) mmol/L Chloride (98-107) mmol/L Carbon Dioxide 20.0 L (22-30) mmol/L BUN 38.4 H (7-17) mg/dL Creatinine (0.52-1.04) mg/dL BUN/Creatinine Ratio 54.86 H (12.00-20.00) Ratio Glucose 490 H (74-99) mg/dL POC Glucose (mg/dL) 113 H (70-110) mg/dL Calcium 7.1 L (8.4-10.2) mg/dL Total Bilirubin <0.2 L (0.3-1.2) mg/dL AST <5 L (13-35) U/L ALT 7 L (8-44) U/L Alkaline Phosphatase 173 H (41-126) U/L Total Protein 5.7 L (6.2-8.2) g/dL Albumin 1.7 L (3.8-4.9) g/dL Globulin 4.0 H (1.6-3.3) g/dL Albumin/Globulin Ratio 0.42 L (1.60-3.17) Ratio Crossmatch Microbiology - Last 24 Hours (Table) 06/10/23 18:20 Urine Culture - Final Urine,Voided 06/09/23 14:40 Blood Culture Gram Stain - Preliminary Blood Blood Culture - Preliminary Strep agalactiae - (group b) Gram Neg Bacilli Assessment and Plan Assessment: 1. Acute kidney injury, ATN currently nonoliguric and improving with IV hydration. UA shows significant pyuria. It is a specimen from urostomy/ileal conduit. 2. Sacral decub and right hip ulcer with concern for osteomyelitis 3. Severe anemia with hemoglobin of 6.3 mg/dL on admission status post packed RBCs transfusion. No active bleeding. 4. Gram-positive bacteremia 5. Sepsis with gram-positive bacteremia and wounds in the sacral area and right hip ulcer. 6. History of spina bifida and hydrocephalus 7. History of recurrent UTIs status post urostomy 8. Severe metabolic acidosis secondary to acute kidney injury, GI fluid loss 9. Hypokalemia Plan: Continue IV bicarb for 1 more day Check labs in a.m. Replace potassium
--- NOTE | 2023-06-12 11:50 | P.PN ---
Progress Note - Text The patient resting comfortably. Wound is stable.
[2023-06-12 11:55] LABS: Glucose,Whole Blood 139 mg/dL (70-110)
[2023-06-12] MEDS: POTASSIUM CHLORIDE ER 20 MEQ TAB.ER PO SCH ×2 (12:13→14:03)
[2023-06-12] MEDS: MORPHINE SULFATE 4 MG/ML SYRINGE IV PRN ×2 (14:09→17:56)
--- NOTE | 2023-06-12 14:48 | P.PN ---
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 Patient is wheelchair-bound. Patient is a resident of long-term facility. Nursing staff at the facility were concerned about worsening sacral decub and right trochanteric pressure ulcer. Patient has been having complaining of lethargy and weakness. There was no clear fever or chills. No complaint of nausea, abdominal pain. Initial lab work done in the ER showed WBC 26.4, hemoglobin 7.3, platelet count 462, sodium 134, potassium 5.2 BUS 79, creatinine 3.04 glucose 166 phosphorus 5.5 troponin 0.012 proBNP 3850 UA done showed nitrite negative, large amount of urine blood, leukocyte esterase moderate amount, urine WBC 182 EKG done in the ER showed heart rate of , no ST segment elevation or depression seen, no T-wave inversions seen. CT abdomen pelvis done showed no acute abnormality, distended gallbladder seen. Deep sacral decub and right decubitus ulcer with Chronic appearing underlying bony changes likely related to chronic osteomyelitis. Mild/moderate degenerative changes of the visualized spine at T10T 11. Patient admitted to internal medicine service 06/11. Patient seen and examined. Family the bedside. Patient underwent b edside debridement by general surgery. States pain is better controlled compared to yesterday. Vital signs stable 06/12. Patient seen and examined. Hemoglobin this morning is 6.8, will transfuse 1 unit of packed red blood cell. Renal functions have improved. Complaining of difficulty swallowing. States she has poor appetite REVIEW OF SYSTEMS: CONSTITUTIONAL: No fever, no malaise,. CARDIOVASCULAR: No chest pain, no palpitations, no syncope. PULMONARY: No shortness of breath, no cough, GASTROINTESTINAL: No diarrhea, no nausea, no vomiting, no abdominal pain. NEUROLOGICAL: No headaches, no weakness, Assessment and plan GENERAL: The patient is alert and oriented x3, not in any acute distress. Chronically ill-looking HEENT: Pupils are round and equally reacting to light. EOMI. No scleral icterus. No conjunctival pallor. Normocephalic, atraumatic. No pharyngeal erythema. No thyromegaly. CARDIOVASCULAR: S1 and S2 present. No murmurs, rubs, or gallops. PULMONARY: Chest is clear to auscultation, no wheezing or crackles. ABDOMEN: Soft, nontender, nondistended, normoactive bowel sounds. No palpable organomegaly. Urostomy seen MUSCULOSKELETAL: Atrophy of lower extremities seen EXTREMITIES: No cyanosis, clubbing, or pedal edema. NEUROLOGICAL: Moving upper extremities. Patient has atrophy of lower extremities SKIN: Stage IV sacral decub and stage IV pressure ulcer to right torchanter Assessment and plan Bacteremia Sepsis present on admission Stage IV sacral decub stage IV pressure ulcer to right torchanter Sacral decub and right decubitus ulcer with chronic underlying bony changes likely related to chronic osteomyelitis Hyponatremia Acute on chronic kidney disease Anemia Acute urinary tract infection, present on admission with failed outpatient therapy Past history of MRSA and ESBL of the wounds recurrent urinary tract infections Asthma history, not in exacerbation Diabetes mellitus, type II, insulin-dependent Gastroesophageal reflux disease Musculoskeletal disorder History of spina bifida with hydrocephalus Sapphire I malformation Chronic renal disease Sleep apnea with a CPAP Monitor vital signs Monitor CBC Monitor CMP Continue telemetry monitoring Follow-up on blood cultures Patient underwent Excisional debridement right trochanteric decubitus ulcer on 06/11 Follow-up on wound cultures Continue bicarb drip Hemoglobin this morning is 6.8, ordered 1 unit of packed red blood cell Continue IV meropenem ID following Nephrology following Gen. surgery following Labs and medication were reviewed.. Continue same treatment. Continue with sy mptomatic treatment. Resume home medication. Monitor labs and vitals. DVT and GI prophylaxis. Further recommendations as per clinical course of the patient Dictation was produced using [employer] dictation software. please excuse any grammatical, word or spelling errors. Objective - Vital Signs Vital signs: Vital Signs Temp 97.7 F 06/12/23 07:24 Pulse 84 06/12/23 07:24 Resp 16 06/12/23 08:00 BP 96/60 06/12/23 07:24 Pulse Ox 99 06/12/23 09:57 FiO2 Intake & Output 06/11/23 06/12/23 06/12/23 18:59 06:59 18:59 Output Total 1500 800 Balance -1500 -800 Output: Drainage 300 800 Abdomen 300 800 Urine 1200 Other: Voiding Method Ileal Conduit (Right) Ileal Conduit (Right) Ileal Conduit (Right) - Labs CBC & Chem 7: 06/12/23 06:02 06/12/23 06:02 Labs: Abnormal Lab Results - Last 24 Hours (Table) 06/11/23 06/11/23 06/11/23 Range/Units 12:06 12:36 17:06 WBC (4.50-10.00) X 10*3/uL RBC (4.10-5.20) X 10*6/uL Hgb (12.0-15.0) g/dL Hct (37.2-46.3) % MCH (27.0-32.0) pg MCHC (32.0-37.0) g/dL RDW (11.5-14.5) % NRBC/100 WBC Diff (0.00-0.01) X 10*3/uL Sodium (135-145) mmol/L Potassium 3.0 L (3.5-5.1) mmol/L Chloride 117 H (98-107) mmol/L Carbon Dioxide 14 L (22-30) mmol/L BUN 49 H (7-17) mg/dL Creatinine 1.26 H (0.52-1.04) mg/dL BUN/Creatinine Ratio (12.00-20.00) Ratio Glucose 187 H (74-99) mg/dL POC Glucose (mg/dL) 213 H 205 H (70-110) mg/dL Calcium 8.0 L (8.4-10.2) mg/dL Total Bilirubin (0.3-1.2) mg/dL AST (13-35) U/L ALT (8-44) U/L Alkaline Phosphatase (41-126) U/L Total Protein (6.2-8.2) g/dL Albumin (3.8-4.9) g/dL Globulin (1.6-3.3) g/dL Albumin/Globulin Ratio (1.60-3.17) Ratio 06/11/23 06/12/23 06/12/23 Range/Units 20:12 06:02 06:02 WBC 10.59 H (4.50-10.00) X 10*3/uL RBC 2.53 L (4.10-5.20) X 10*6/uL Hgb 6.8 A* (12.0-15.0) g/dL Hct 22.3 L (37.2-46.3) % MCH 26.9 L (27.0-32.0) pg MCHC 30.5 L (32.0-37.0) g/dL RDW 18.4 H (11.5-14.5) % NRBC/100 WBC Diff 0.03 H (0.00-0.01) X 10*3/uL Sodium 130 L (135-145) mmol/L Potassium 3.3 L (3.5-5.1) mmol/L Chloride (98-107) mmol/L Carbon Dioxide 20.0 L (22-30) mmol/L BUN 38.4 H (7-17) mg/dL Creatinine (0.52-1.04) mg/dL BUN/Creatinine Ratio 54.86 H (12.00-20.00) Ratio Glucose 490 H (74-99) mg/dL POC Glucose (mg/dL) 118 H (70-110) mg/dL Calcium 7.1 L (8.4-10.2) mg/dL Total Bilirubin <0.2 L (0.3-1.2) mg/dL AST <5 L (13-35) U/L ALT 7 L (8-44) U/L Alkaline Phosphatase 173 H (41-126) U/L Total Protein 5.7 L (6.2-8.2) g/dL Albumin 1.7 L (3.8-4.9) g/dL Globulin 4.0 H (1.6-3.3) g/dL Albumin/Globulin Ratio 0.42 L (1.60-3.17) Ratio 06/12/ Range/Units 07:34 WBC (4.50-10.00) X 10*3/uL RBC (4.10-5.20) X 10*6/uL Hgb (12.0-15.0) g/dL Hct (37.2-46.3) % MCH (27.0-32.0) pg MCHC (32.0-37.0) g/dL RDW (11.5-14.5) % NRBC/100 WBC Diff (0.00-0.01) X 10*3/uL Sodium (135-145) mmol/L Potassium (3.5-5.1) mmol/L Chloride (98-107) mmol/L Carbon Dioxide (22-30) mmol/L BUN (7-17) mg/dL Creatinine (0.52-1.04) mg/dL BUN/Creatinine Ratio (12.00-20.00) Ratio Glucose (74-99) mg/dL POC Glucose (mg/dL) 113 H (70-110) mg/dL Calcium (8.4-10.2) mg/dL Total Bilirubin (0.3-1.2) mg/dL AST (13-35) U/L ALT (8-44) U/L Alkaline Phosphatase (41-126) U/L Total Protein (6.2-8.2) g/dL Albumin (3.8-4.9) g/dL Globulin (1.6-3.3) g/dL Albumin/Globulin Ratio (1.60-3.17) Ratio Microbiology - Last 24 Hours (Table) 06/10/23 18:20 Urine Culture - Final Urine,Voided 06/09/23 14:40 Blood Culture Gram Stain - Preliminary Blood Blood Culture - Preliminary Strep agalactiae - (group b) Gram Neg Bacilli
[2023-06-12] MEDS: NYSTATIN 100,000 UNIT/ML SUSP 500,000 UNIT/5 ML CUP PO SCH ×2 (16:00→22:39)
[2023-06-12 17:12] LABS: Glucose,Whole Blood 135 mg/dL (70-110)
[2023-06-12 20:13] LABS: Glucose,Whole Blood 130 mg/dL (70-110)
[2023-06-12] MEDS: HYDROcodone/APAP 5-325MG 1 EACH TAB PO PRN (22:39)
[2023-06-13] MEDS: MEROPENEM 1 GM in SODIUM CHLORIDE 0.9% 100 ML IVPB SCH ×3 (02:01→16:55)
[2023-06-13] MEDS: DEXTROSE 5% IN WATER 1,000 ML with SODIUM BICARB (1 MEQ/ML) 150 ML IV SCH (02:06)
[2023-06-13] MEDS: HYDROcodone/APAP 5-325MG 1 EACH TAB PO PRN (05:29)
[2023-06-13 06:08] LABS: ALT 8 U/L (4-34); AST 13 U/L (14-36); African American GFR (CKD) >90 (>60 ml/min/1.73 sqM); Albumin/Globulin Ratio 0.5; Alkaline Phosphatase 204 U/L (38-126); Anion Gap 7 mmol/L; Blood Urea Nitrogen 37 mg/dL (7-17); Calcium 7.9 mg/dL (8.4-10.2); Carbon Dioxide 21 mmol/L (22-30); Chloride 109 mmol/L (98-107); Globulin 4.3 g/dL; Glucose 100 mg/dL (74-99); Non-African American GFR(CKD) >90 (>60 ml/min/1.73 sqM); Potassium 4.6 mmol/L (3.5-5.1); Sodium 137 mmol/L (137-145); Total Bilirubin 0.3 mg/dL (0.2-1.3); Total Protein 6.3 g/dL (6.3-8.2)
[2023-06-13] MEDS: CLINDAMYCIN 600 MG in DEXTROSE 5% IN WATER 50 ML IVPB SCH ×2 (06:21)
[2023-06-13 07:05] LABS: Anisocytosis Slight; Hypochromasia Marked; MCH 27.8 pg (25.0-35.0); MCHC 31.3 g/dL (31.0-37.0); MCV 88.7 fL (80.0-100.0); Mean Platelet Volume 9.1; Poikilocytosis Moderate; RBC 3.16 m/uL (3.80-5.40); RDW 18.2 % (11.5-15.5); WBC 11.3 k/uL (3.8-10.6)
[2023-06-13 07:07] LABS: HGB 8.8 gm/dL (11.4-16.0); Platelet Count 192 k/uL (150-450)
[2023-06-13 07:44] LABS: Glucose,Whole Blood 125 mg/dL (70-110)
[2023-06-13 07:56] LABS: Anisocytosis (M) Present; Band Neutrophils % 1 %; Hypochromasia (M) Present; Lymphocytes # (M) 3.39 k/uL (1.0-4.8); Monocytes # (M) 1.13 k/uL (0-1.0); Neutrophils % (M) 59 %; Nucleated Red Blood Cells 0 /100 WBC (0-0); Target Cells Present; Total Cells Counted 100
[2023-06-13] MEDS: PANTOPRAZOLE 40 MG/10 ML VIAL IV SCH (08:45)
[2023-06-13] MEDS: CALCIUM CARBONATE 500 MG CHEWABLE PO SCH (08:46)
[2023-06-13] MEDS: NYSTATIN 100,000 UNIT/ML SUSP 500,000 UNIT/5 ML CUP PO SCH ×4 (08:46→22:09)
[2023-06-13] MEDS: FERROUS SULFATE 325 MG TAB PO SCH (08:46)
[2023-06-13] MEDS: allopurinoL 300 MG TAB PO SCH (08:46)
[2023-06-13] MEDS: THIAMINE 100 MG TAB PO SCH (08:46)
[2023-06-13] MEDS: MAGNESIUM OXIDE 400 MG TAB PO SCH (08:46)
[2023-06-13] MEDS: FOLIC ACID 1 MG TAB PO SCH (08:50)
--- NOTE | 2023-06-13 11:34 | P.PN ---
Subjective Progress Note Date: 06/12/23 Principal diagnosis: Reason for follow-up is ESBL bacteremia UTI and infected pressure ulcer Patient is a 57-year-old female with a past medical history significant for diabetes mellitus reflux spina bifid hydrocephalus bedbound state currently alf resident, patient have chronic nonhealing wound to the sacral and the right hip area sent to the ER for concerning for possible infection did have a positive blood culture with ESBL E. coli, patient did have right trochanteric pressure ulcer debridement at the bedside by surgery on 06/11/2023 On today's evaluation that is 06/12/2023 the patient continues to be afebrile, the patient is breathing comfortably on 3 L nasal cannula oxygen patient denies any chest pain or cough no nausea vomiting no abdominal pain or diarrhea has been complaining of pain in her sacral wound area. Patient white count of 10.59 creatinine 0.7. Objective - Vital Signs Vital signs: Vital Signs Temp 98.3 F 06/12/23 13:23 Pulse 84 06/12/23 13:23 Resp 18 06/12/23 13:23 BP 98/65 06/12/23 13:23 Pulse Ox 100 06/12/23 13:23 FiO2 Intake & Output 06/11/23 06/12/23 06/12/23 18:59 06:59 18:59 Intake Total 0 Output Total 1500 800 400 Balance -1500 -800 -400 Intake: Blood Product 0 Rc As-1 Unit 0 [id number] Output: Drainage 300 800 Abdomen 300 800 Urine 1200 400 Other: Voiding Method Ileal Conduit (Right) Ileal Conduit (Right) Ileal Conduit (Right) - Labs CBC & Chem 7: 06/13/23 05:35 06/13/23 05:35 Labs: Abnormal Lab Results - Last 24 Hours (Table) 06/10/23 06/11/23 06/11/23 Range/Units 10:26 17:06 20:12 WBC (4.50-10.00) X 10*3/uL RBC (4.10-5.20) X 10*6/uL Hgb (12.0-15.0) g/dL Hct (37.2-46.3) % MCH (27.0-32.0) pg MCHC (32.0-37.0) g/dL RDW (11.5-14.5) % NRBC/100 WBC Diff (0.00-0.01) X 10*3/uL Sodium (135-145) mmol/L Potassium (3.5-5.5) mmol/L Carbon Dioxide (21.6-31.8) mmol/L BUN (9.0-27.0) mg/dL BUN/Creatinine Ratio (12.00-20.00) Ratio Glucose (70-110) mg/dL POC Glucose (mg/dL) 205 H 118 H (70-110) mg/dL Calcium (8.7-10.3) mg/dL Total Bilirubin (0.3-1.2) mg/dL AST (13-35) U/L ALT (8-44) U/L Alkaline Phosphatase (41-126) U/L Total Protein (6.2-8.2) g/dL Albumin (3.8-4.9) g/dL Globulin (1.6-3.3) g/dL Albumin/Globulin Ratio (1.60-3.17) Ratio Crossmatch See Detail 06/12/23 06/12/23 06/12/23 Range/Units 06:02 06:02 07:34 WBC 10.59 H (4.50-10.00) X 10*3/uL RBC 2.53 L (4.10-5.20) X 10*6/uL Hgb 6.8 A* (12.0-15.0) g/dL Hct 22.3 L (37.2-46.3) % MCH 26.9 L (27.0-32.0) pg MCHC 30.5 L (32.0-37.0) g/dL RDW 18.4 H (11.5-14.5) % NRBC/100 WBC Diff 0.03 H (0.00-0.01) X 10*3/uL Sodium 130 L (135-145) mmol/L Potassium 3.3 L (3.5-5.5) mmol/L Carbon Dioxide 20.0 L (21.6-31.8) mmol/L BUN 38.4 H (9.0-27.0) mg/dL BUN/Creatinine Ratio 54.86 H (12.00-20.00) Ratio Glucose 490 H (70-110) mg/dL POC Glucose (mg/dL) 113 H (70-110) mg/dL Calcium 7.1 L (8.7-10.3) mg/dL Total Bilirubin <0.2 L (0.3-1.2) mg/dL AST <5 L (13-35) U/L ALT 7 L (8-44) U/L Alkaline Phosphatase 173 H (41-126) U/L Total Protein 5.7 L (6.2-8.2) g/dL Albumin 1.7 L (3.8-4.9) g/dL Globulin 4.0 H (1.6-3.3) g/dL Albumin/Globulin Ratio 0.42 L (1.60-3.17) Ratio Crossmatch 06/12/23 Range/Units 11:54 WBC (4.50-10.00) X 10*3/uL RBC (4.10-5.20) X 10*6/uL Hgb (12.0-15.0) g/dL Hct (37.2-46.3) % MCH (27.0-32.0) pg MCHC (32.0-37.0) g/dL RDW (11.5-14.5) % NRBC/100 WBC Diff (0.00-0.01) X 10*3/uL Sodium (135-145) mmol/L Potassium (3.5-5.5) mmol/L Carbon Dioxide (21.6-31.8) mmol/L BUN (9.0-27.0) mg/dL BUN/Creatinine Ratio (12.00-20.00) Ratio Glucose (70-110) mg/dL POC Glucose (mg/dL) 139 H (70-110) mg/dL Calcium (8.7-10.3) mg/dL Total Bilirubin (0.3-1.2) mg/dL AST (13-35) U/L ALT (8-44) U/L Alkaline Phosphatase (41-126) U/L Total Protein (6.2-8.2) g/dL Albumin (3.8-4.9) g/dL Globulin (1.6-3.3) g/dL Albumin/Globulin Ratio (1.60-3.17) Ratio Crossmatch Microbiology - Last 24 Hours (Table) 06/10/23 18:20 Urine Culture - Final Urine,Voided 12/20/23 14:40 Blood Culture Gram Stain - Preliminary Blood Blood Culture - Preliminary Strep agalactiae - (group b) Gram Neg Bacilli Assessment and Plan (1) Bacteremia Current Visit: Yes Status: Acute Code(s): R78.81 - BACTEREMIA SNOMED Code(s): 3173527 (2) Allergy to multiple antibiotics Current Visit: Yes Status: Acute Code(s): Z88.1 - ALLERGY STATUS TO OTHER ANTIBIOTIC AGENTS SNOMED Code(s): 394884019 (3) Pressure injury of sacral region, stage 4 Current Visit: Yes Status: Acute Code(s): L89.154 - PRESSURE ULCER OF SACRAL REGION, STAGE 4 SNOMED Code(s): 39125795604348 (4) Sepsis Current Visit: Yes Status: Acute Code(s): A41.9 - SEPSIS, UNSPECIFIED ORGANISM SNOMED Code(s): 42505280 (5) UTI (urinary tract infection) Current Visit: Yes Status: Acute Code(s): N39.0 - URINARY TRACT INFECTION, SITE NOT SPECIFIED SNOMED Code(s): 48293355 Plan: 1patient was in the hospital with sepsis in this patient who did have a tachycardia hypeotension elevated white count meeting criteria for SIRS/sepsis, source is likely infected sacral pressure ulcer and likely UTI 2-patient did have a positive blood culture with strep and he has been E. coli source likely infected sacral pressure ulcer/UTI 3-renal insufficiency and high risk of nephrotoxicity, Patient did show improvement in her kidney function. 4-patient with multiple antibiotic ALLERGIES that would limit the number of antibiotic safe to use 5patient has been evaluated by general surgery and did have a debridement of the right trochanteric pressure ulcer 6-patient to continue with meropenem for her bacteremia waiting for repeat culture to be finalized before placement of a PICC line Dictation was produced using [employer] dictation software. please excuse any grammatical, word or spelling errors.
--- NOTE | 2023-06-13 11:36 | P.PN ---
Subjective Progress Note Date: 06/13/23 Principal diagnosis: Reason for follow-up is ESBL bacteremia UTI and infected pressure ulcer Patient is a 57-year-old female with a past medical history significant for diabetes mellitus reflux spina bifid hydrocephalus bedbound state currently assisted resident, patient have chronic nonhealing wound to the sacral and the right hip area sent to the ER for concerning for possible infection did have a positive blood culture with ESBL E. coli, patient did have right trochanteric pressure ulcer debridement at the bedside by surgery on 06/11/2023 On today's evaluation that is 06/12/2023 the patient remains to be afebrile, the patient is breathing comfortably on 3 L nasal cannula oxygen patient is currently resting comfortably and in no distress taking rest per the family no vomiting diarrhea or any other changes reported by the nursing staff. The patient white count of 11.3 creatinine 0.53 Objective - Vital Signs Vital signs: Vital Signs Temp 98.3 F 06/13/23 08:00 Pulse 82 06/13/23 08:00 Resp 18 06/13/23 08:00 BP 98/58 06/13/23 08:00 Pulse Ox 98 06/13/23 08:32 FiO2 Intake & Output 06/12/23 06/13/23 06/13/23 18:59 06:59 18:59 Intake Total 310 Output Total 400 1100 Balance -90 -1100 Intake: Blood Product 310 Rc As-1 Unit 310 [id number] Output: Urine 400 1100 Other: Voiding Method Ileal Conduit (Right) Ileal Conduit (Right) - Exam GENERAL DESCRIPTION: Middle-aged female lying in bed in no distress RESPIRATORY SYSTEM: Unlabored breathing , decreased breath sounds at bases HEART: S1 S2 regular rate and rhythm , ABDOMEN: Soft , no tenderness EXTREMITIES: No edema feet - Labs CBC & Chem 7: 06/13/23 05:35 06/13/23 05:35 Labs: Abnormal Lab Results - Last 24 Hours (Table) 06/10/23 06/12/23 06/12/23 Range/Units 10:26 11:54 17:11 WBC (3.8-10.6) k/uL RBC (3.80-5.40) m/uL Hgb (11.4-16.0) gm/dL Hct (34.0-46.0) % RDW (11.5-15.5) % Monocytes # (Manual) (0-1.0) k/uL Chloride (98-107) mmol/L Carbon Dioxide (22-30) mmol/L BUN (7-17) mg/dL Glucose (74-99) mg/dL POC Glucose (mg/dL) 139 H 135 H (70-110) mg/dL Calcium (8.4-10.2) mg/dL AST (14-36) U/L Alkaline Phosphatase (38-126) U/L Albumin (3.5-5.0) g/dL Crossmatch See Detail 06/12/23 06/13/23 06/13/23 Range/Units 20:12 05:35 05:35 WBC 11.3 H (3.8-10.6) k/uL RBC 3.16 L (3.80-5.40) m/uL Hgb 8.8 L D (11.4-16.0) gm/dL Hct 28.0 L (34.0-46.0) % RDW 18.2 H (11.5-15.5) % Monocytes # (Manual) 1.13 H (0-1.0) k/uL Chloride 109 H (98-107) mmol/L Carbon Dioxide 21 L (22-30) mmol/L BUN 37 H (7-17) mg/dL Glucose 100 H (74-99) mg/dL POC Glucose (mg/dL) 130 H (70-110) mg/dL Calcium 7.9 L (8.4-10.2) mg/dL AST 13 L (14-36) U/L Alkaline Phosphatase 204 H (38-126) U/L Albumin 2.0 L (3.5-5.0) g/dL Crossmatch 06/13/23 Range/Units 07:38 WBC (3.8-10.6) k/uL RBC (3.80-5.40) m/uL Hgb (11.4-16.0) gm/dL Hct (34.0-46.0) % RDW (11.5-15.5) % Monocytes # (Manual) (0-1.0) k/uL Chloride (98-107) mmol/L Carbon Dioxide (22-30) mmol/L BUN (7-17) mg/dL Glucose (74-99) mg/dL POC Glucose (mg/dL) 125 H (70-110) mg/dL Calcium (8.4-10.2) mg/dL AST (14-36) U/L Alkaline Phosphatase (38-126) U/L Albumin (3.5-5.0) g/dL Crossmatch Microbiology - Last 24 Hours (Table) 06/09/23 14:40 Blood Culture Gram Stain - Final Blood Blood Culture - Final Strep agalactiae - (group b) Escherichia coli Coagulase Negative Staph Assessment and Plan (1) Bacteremia Current Visit: Yes Status: Acute Code(s): R78.81 - BACTEREMIA SNOMED Code(s): 5038409 (2) Allergy to multiple antibiotics Current Visit: Yes Status: Acute Code(s): Z88.1 - ALLERGY STATUS TO OTHER ANTIBIOTIC AGENTS SNOMED Code(s): 709393759 (3) Pressure injury of sacral region, stage 4 Current Visit: Yes Status: Acute Code(s): L89.154 - PRESSURE ULCER OF SACRAL REGION, STAGE 4 SNOMED Code(s): 16735926065585 (4) Sepsis Current Visit: Yes Status: Acute Code(s): A41.9 - SEPSIS, UNSPECIFIED ORGANISM SNOMED Code(s): 37467895 (5) UTI (urinary tract infection) Current Visit: Yes Status: Acute Code(s): N39.0 - URINARY TRACT INFECTION, SITE NOT SPECIFIED SNOMED Code(s): 64500015 Plan: 1patient was in the hospital with sepsis in this patient who did have a ta chycardia hypeotension elevated white count meeting criteria for SIRS/sepsis, source is likely infected sacral pressure ulcer and likely UTI 2-patient did have a positive blood culture with strep and he has been E. coli source likely infected sacral pressure ulcer/UTI 3-renal insufficiency and high risk of nephrotoxicity, Patient did show improvement in her kidney function. 4-patient with multiple antibiotic ALLERGIES that would limit the number of antibiotic safe to use 5patient has been evaluated by general surgery and did have a debridement of the right trochanteric pressure ulcer 6-patient currently being treated with meropenem for her bacteremia, plan will be for PICC line and outpatient IV antibiotic therapy at least 6 weeks local wound care to continue per the wound care team 7-blood culture also showing a coagulase-negative staph possible skin contamination waiting for repeat blood culture to finalize Multiple family members at bedside questions were answered Dictation was produced using [employer] software. please excuse any grammatical, word or spelling errors.
--- NOTE | 2023-06-13 11:44 | P.PN ---
Subjective Patient is seen for follow-up for acute kidney injury. Serum creatinine improved to 0.5 and CO2 is improved to 21. Hemoglobin at 8.8 g/dL today. Patient is maintained on IV bicarb. Urine output charted at 1200 mL. Objective - Vital Signs Vital signs: Vital Signs Temp 98.3 F 06/13/23 08:00 Pulse 82 06/13/23 08:00 Resp 18 06/13/23 08:00 BP 98/58 06/13/23 08:00 Pulse Ox 98 06/13/23 08:32 FiO2 Intake & Output 06/12/23 06/13/23 06/13/23 18:59 06:59 18:59 Intake Total 310 Output Total 400 1100 Balance -90 -1100 Intake: Blood Product 310 Rc As-1 Unit 310 [id number] Output: Urine 400 1100 Other: Voiding Method Ileal Conduit (Right) Ileal Conduit (Right) - Exam Patient is awake, comfortable, no acute distress Examination of the heart S1 and S2 Examination of the lungs bilateral breath sounds are heard Abdomen is soft nontender Examination of lower extremities shows 1+ edema, patient has paraplegia - Labs CBC & Chem 7: 06/13/23 05:35 06/13/23 05:35 Labs: Abnormal Lab Results - Last 24 Hours (Table) 06/10/23 06/12/23 06/12/23 Range/Units 10:26 11:54 17:11 WBC (3.8-10.6) k/uL RBC (3.80-5.40) m/uL Hgb (11.4-16.0) gm/dL Hct (34.0-46.0) % RDW (11.5-15.5) % Monocytes # (Manual) (0-1.0) k/uL Chloride (98-107) mmol/L Carbon Dioxide (22-30) mmol/L BUN (7-17) mg/dL Glucose (74-99) mg/dL POC Glucose (mg/dL) 139 H 135 H (70-110) mg/dL Calcium (8.4-10.2) mg/dL AST (14-36) U/L Alkaline Phosphatase (38-126) U/L Albumin (3.5-5.0) g/dL Crossmatch See Detail 06/12/23 06/13/23 06/13/23 Range/Units 20:12 05:35 05:35 WBC 11.3 H (3.8-10.6) k/uL RBC 3.16 L (3.80-5.40) m/uL Hgb 8.8 L D (11.4-16.0) gm/dL Hct 28.0 L (34.0-46.0) % RDW 18.2 H (11.5-15.5) % Monocytes # (Manual) 1.13 H (0-1.0) k/uL Chloride 109 H (98-107) mmol/L Carbon Dioxide 21 L (22-30) mmol/L BUN 37 H (7-17) mg/dL Glucose 100 H (74-99) mg/dL POC Glucose (mg/dL) 130 H (70-110) mg/dL Calcium 7.9 L (8.4-10.2) mg/dL AST 13 L (14-36) U/L Alkaline Phosphatase 204 H (38-126) U/L Albumin 2.0 L (3.5-5.0) g/dL Crossmatch 06/13/23 Range/Units 07:38 WBC (3.8-10.6) k/uL RBC (3.80-5.40) m/uL Hgb (11.4-16.0) gm/dL Hct (34.0-46.0) % RDW (11.5-15.5) % Monocytes # (Manual) (0-1.0) k/uL Chloride (98-107) mmol/L Carbon Dioxide (22-30) mmol/L BUN (7-17) mg/dL Glucose (74-99) mg/dL POC Glucose (mg/dL) 125 H (70-110) mg/dL Calcium (8.4-10.2) mg/dL AST (14-36) U/L Alkaline Phosphatase (38-126) U/L Albumin (3.5-5.0) g/dL Crossmatch Microbiology - Last 24 Hours (Table) 06/09/23 14:40 Blood Culture Gram Stain - Final Blood Blood Culture - Final Strep agalactiae - (group b) Escherichia coli Coagulase Negative Staph Assessment and Plan Assessment: 1. Acute kidney injury, ATN currently nonoliguric and improving with IV hydration. UA shows significant pyuria. It is a specimen from urostomy/ileal conduit. 2. Sacral decub and right hip ulcer with concern for osteomyelitis 3. Severe anemia with hemoglobin of 6.3 mg/dL on admission status post packed RBCs transfusion. No active bleeding. 4. Gram-positive bacteremia 5. Sepsis with gram-positive bacteremia and wounds in the sacral area and right hip ulcer. 6. History of spina bifida and hydrocephalus 7. History of recurrent UTIs status post urostomy 8. Severe metabolic acidosis secondary to acute kidney injury, GI fluid loss 9. Hypokalemia Plan: Change IV fluids to Ringer lactate Check labs in a.m.
--- NOTE | 2023-06-13 12:35 | P.PN ---
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 Patient is wheelchair-bound. Patient is a resident of intermediate facility. Nursing staff at the facility were concerned about worsening sacral decub and right trochanteric pressure ulcer. Patient has been having complaining of lethargy and weakness. There was no clear fever or chills. No complaint of nausea, abdominal pain. Initial lab work done in the ER showed WBC 26.4, hemoglobin 7.3, platelet count 462, sodium 134, potassium 5.2 BUS 79, creatinine 3.04 glucose 166 phosphorus 5.5 troponin 0.012 proBNP 3850 UA done showed nitrite negative, large amount of urine blood, leukocyte esterase moderate amount, urine WBC 182 EKG done in the ER showed heart rate of , no ST segment elevation or depression seen, no T-wave inversions seen. CT abdomen pelvis done showed no acute abnormality, distended gallbladder seen. Deep sacral decub and right decubitus ulcer with Chronic appearing underlying bony changes likely related to chronic osteomyelitis. Mild/moderate degenerative changes of the visualized spine at T10T 11. Patient admitted to internal medicine service 06/11. Patient seen and examined. Family the bedside. Patient underwent b edside debridement by general surgery. States pain is better controlled compared to yesterday. Vital signs stable 06/12. Patient seen and examined. Hemoglobin this morning is 6.8, will transfuse 1 unit of packed red blood cell. Renal functions have improved. Complaining of difficulty swallowing. States she has poor appetite 06/13. Patient seen and examined lab work done this morning showed WBC 10.3, hemoglobin 8.8, sodium 137, potassium 4.6, BUN 37, creatinine 0.53. Mother at the bedside, states she is doing much better. Denies any acute issues. States appetite is improved REVIEW OF SYSTEMS: CONSTITUTIONAL: No fever, no malaise,. CARDIOVASCULAR: No chest pain, no palpitations, no syncope. PULMONARY: No shortness of breath, no cough, GASTROINTESTINAL: No diarrhea, no nausea, no vomiting, no abdominal pain. NEUROLOGICAL: No headaches, no weakness, Assessment and plan GENERAL: The patient is alert and oriented x3, not in any acute distress. Chronically ill-looking HEENT: Pupils are round and equally reacting to light. EOMI. No scleral icterus. No conjunctival pallor. Normocephalic, atraumatic. No pharyngeal erythema. No thyromegaly. CARDIOVASCULAR: S1 and S2 present. No murmurs, rubs, or gallops. PULMONARY: Chest is clear to auscultation, no wheezing or crackles. ABDOMEN: Soft, nontender, nondistended, normoactive bowel sounds. No palpable organomegaly. Urostomy seen MUSCULOSKELETAL: Atrophy of lower extremities seen EXTREMITIES: No cyanosis, clubbing, or pedal edema. NEUROLOGICAL: Moving upper extremities. Patient has atrophy of lower extremities SKIN: Stage IV sacral decub and stage IV pressure ulcer to right torchanter Assessment and plan Bacteremia Sepsis present on admission Stage IV sacral decub stage IV pressure ulcer to right torchanter Sacral decub and right decubitus ulcer with chronic underlying bony changes likely related to chronic osteomyelitis Hyponatremia Acute on chronic kidney disease Anemia Acute urinary tract infection, present on admission with failed outpatient therapy Past history of MRSA and ESBL of the wounds recurrent urinary tract infections Asthma history, not in exacerbation Diabetes mellitus, type II, insulin-dependent Gastroesophageal reflux disease Musculoskeletal disorder History of spina bifida with hydrocephalus Sapphire I malformation Chronic renal disease Sleep apnea with a CPAP Monitor vital signs Monitor CBC Monitor CMP Continue telemetry monitoring Follow-up on blood cultures Patient underwent Excisional debridement right trochanteric decubitus ulcer on 06/11 Follow-up on wound cultures Change fluids to Ringer lactate Continue IV meropenem and clindamycin ID following Nephrology following Gen. surgery following Labs and medication were reviewed.. Continue same treatment. Continue with symptomatic treatment. Resume home medication. Monitor labs and vitals. DVT and GI prophylaxis. Further recommendations as per clinical course of the patient Dictation was produced using [employer] dictation software. please excuse any grammatical, word or spelling errors. Objective - Vital Signs Vital signs: Vital Signs Temp 98.3 F 06/13/23 08:00 Pulse 82 06/13/23 08:00 Resp 18 06/13/23 08:00 BP 98/58 06/13/23 08:00 Pulse Ox 98 06/13/23 08:32 FiO2 Intake & Output 06/12/23 06/13/23 06/13/23 18:59 06:59 18:59 Intake Total 310 Output Total 400 1100 Balance -90 -1100 Intake: Blood Product 310 Rc As-1 Unit 310 [id number] Output: Urine 400 1100 Other: Voiding Method Ileal Conduit (Right) Ileal Conduit (Right) - Labs CBC & Chem 7: 06/13/23 05:35 06/13/23 05:35 Labs: Abnormal Lab Results - Last 24 Hours (Table) 06/10/23 06/12/23 06/12/23 Range/Units 10:26 06:02 11:54 WBC (3.8-10.6) k/uL RBC (3.80-5.40) m/uL Hgb (11.4-16.0) gm/dL Hct (34.0-46.0) % RDW (11.5-15.5) % Monocytes # (Manual) (0-1.0) k/uL Sodium 130 L (135-145) mmol/L Potassium 3.3 L (3.5-5.5) mmol/L Chloride (98-107) mmol/L Carbon Dioxide 20.0 L (21.6-31.8) mmol/L BUN 38.4 H (9.0-27.0) mg/dL BUN/Creatinine Ratio 54.86 H (12.00-20.00) Ratio Glucose 490 H (70-110) mg/dL POC Glucose (mg/dL) 139 H (70-110) mg/dL Calcium 7.1 L (8.7-10.3) mg/dL Total Bilirubin <0.2 L (0.3-1.2) mg/dL AST <5 L (13-35) U/L ALT 7 L (8-44) U/L Alkaline Phosphatase 173 H (41-126) U/L Total Protein 5.7 L (6.2-8.2) g/dL Albumin 1.7 L (3.8-4.9) g/dL Globulin 4.0 H (1.6-3.3) g/dL Albumin/Globulin Ratio 0.42 L (1.60-3.17) Ratio Crossmatch See Detail 06/12/23 06/12/23 06/13/23 Range/Units 17:11 20:12 05:35 WBC 11.3 H (3.8-10.6) k/uL RBC 3.16 L (3.80-5.40) m/uL Hgb 8.8 L D (11.4-16.0) gm/dL Hct 28.0 L (34.0-46.0) % RDW 18.2 H (11.5-15.5) % Monocytes # (Manual) 1.13 H (0-1.0) k/uL Sodium (135-145) mmol/L Potassium (3.5-5.5) mmol/L Chloride (98-107) mmol/L Carbon Dioxide (21.6-31.8) mmol/L BUN (9.0-27.0) mg/dL BUN/Creatinine Ratio (12.00-20.00) Ratio Glucose (70-110) mg/dL POC Glucose (mg/dL) 135 H 130 H (70-110) mg/dL Calcium (8.7-10.3) mg/dL Total Bilirubin (0.3-1.2) mg/dL AST (13-35) U/L ALT (8-44) U/L Alkaline Phosphatase (41-126) U/L Total Protein (6.2-8.2) g/dL Albumin (3.8-4.9) g/dL Globulin (1.6-3.3) g/dL Albumin/Globulin Ratio (1.60-3.17) Ratio Crossmatch 06/13/23 06/13/23 Range/Units 05:35 07:38 WBC (3.8-10.6) k/uL RBC (3.80-5.40) m/uL Hgb (11.4-16.0) gm/dL Hct (34.0-46.0) % RDW (11.5-15.5) % Monocytes # (Manual) (0-1.0) k/uL Sodium (135-145) mmol/L Potassium (3.5-5.5) mmol/L Chloride 109 H (98-107) mmol/L Carbon Dioxide 21 L (21.6-31.8) mmol/L BUN 37 H (9.0-27.0) mg/dL BUN/Creatinine Ratio (12.00-20.00) Ratio Glucose 100 H (70-110) mg/dL POC Glucose (mg/dL) 125 H (70-110) mg/dL Calcium 7.9 L (8.7-10.3) mg/dL Total Bilirubin (0.3-1.2) mg/dL AST 13 L (13-35) U/L ALT (8-44) U/L Alkaline Phosphatase 204 H (41-126) U/L Total Protein (6.2-8.2) g/dL Albumin 2.0 L (3.8-4.9) g/dL Globulin (1.6-3.3) g/dL Albumin/Globulin Ratio (1.60-3.17) Ratio Crossmatch Microbiology - Last 24 Hours (Table) 06/09/23 14:40 Blood Culture Gram Stain - Final Blood Blood Culture - Final Strep agalactiae - (group b) Escherichia coli Coagulase Negative Staph
[2023-06-13 13:12] LABS: Glucose,Whole Blood 160 mg/dL (70-110)
--- NOTE | 2023-06-13 13:20 | P.PN ---
Subjective Progress Note Date: 06/13/23 CHIEF COMPLAINT: Sacral ulcer HISTORY OF PRESENT ILLNESS: The patient is a 57-year-old status post debridement of sacrum trochanter. She is hard of hearing. Family is at bedside. No reports of moderate pain. ROS: No reports of nausea and vomiting. No fevers or chills. No new chest pain. No productive sputum PHYSICAL EXAM: VITAL SIGNS: Reviewed CONSTITUTIONAL: Well developed and in no acute distress. EYES: Conjuctivae without sclera icterus. Extraocular movements grossly intact. HEAD, EARS, NOSE, THROAT: Moist buccal mucosa. Head is atraumatic, normocephalic. No nasal drainage. Hard of hearing. RESPIRATORY: Non-labored respirations and equal bilateral excursions. CARDIOVASCULAR: Palpable 2+ radial pulses. ABDOMEN: Nontender. MUSCULOSKELETAL: No gross deformity of the lower extremities noted. No clubbing. No cyanosis. SKIN: Good skin turgor. Well perfused. NEUROLOGIC: Cranial nerves II through XII grossly intact. No focal or lateralizing signs. PSYCH: Appropriate affect. Alert and oriented to person, place and time. CLINICAL LABS: Reviewed. WBC elevated ASSESSMENT: 1. Sacral ulcer 2. Chronic osteomyelitis PLAN: 1. Augment nutrition 2. Local wound care for ulcer debridement. Objective - Vital Signs Vital signs: Vital Signs Temp 98.3 F 06/13/23 13:13 Pulse 91 06/13/23 13:13 Resp 17 06/13/23 13:13 BP 91/58 06/13/23 13:13 Pulse Ox 99 06/13/23 13:13 FiO2 Intake & Output 06/12/23 06/13/23 06/13/23 18:59 06:59 18:59 Intake Total 310 Output Total 400 1100 Balance -90 -1100 Intake: Blood Product 310 Rc As-1 Unit 310 [id number] Output: Urine 400 1100 Other: Voiding Method Ileal Conduit (Right) Ileal Conduit (Right) Ileal Conduit (Right) - Labs CBC & Chem 7: 06/13/23 05:35 06/13/23 05:35 Labs: Abnormal Lab Results - Last 24 Hours (Table) 06/10/23 06/12/23 06/12/23 Range/Units 10:26 17:11 20:12 WBC (3.8-10.6) k/uL RBC (3.80-5.40) m/uL Hgb (11.4-16.0) gm/dL Hct (34.0-46.0) % RDW (11.5-15.5) % Monocytes # (Manual) (0-1.0) k/uL Chloride (98-107) mmol/L Carbon Dioxide (22-30) mmol/L BUN (7-17) mg/dL Glucose (74-99) mg/dL POC Glucose (mg/dL) 135 H 130 H (70-110) mg/dL Calcium (8.4-10.2) mg/dL AST (14-36) U/L Alkaline Phosphatase (38-126) U/L Albumin (3.5-5.0) g/dL Crossmatch See Detail 06/13/23 06/13/23 06/13/23 Range/Units 05:35 05:35 07:38 WBC 11.3 H (3.8-10.6) k/uL RBC 3.16 L (3.80-5.40) m/uL Hgb 8.8 L D (11.4-16.0) gm/dL Hct 28.0 L (34.0-46.0) % RDW 18.2 H (11.5-15.5) % Monocytes # (Manual) 1.13 H (0-1.0) k/uL Chloride 109 H (98-107) mmol/L Carbon Dioxide 21 L (22-30) mmol/L BUN 37 H (7-17) mg/dL Glucose 100 H (74-99) mg/dL POC Glucose (mg/dL) 125 H (70-110) mg/dL Calcium 7.9 L (8.4-10.2) mg/dL AST 13 L (14-36) U/L Alkaline Phosphatase 204 H (38-126) U/L Albumin 2.0 L (3.5-5.0) g/dL Crossmatch 06/13/23 Range/Units 12:51 WBC (3.8-10.6) k/uL RBC (3.80-5.40) m/uL Hgb (11.4-16.0) gm/dL Hct (34.0-46.0) % RDW (11.5-15.5) % Monocytes # (Manual) (0-1.0) k/uL Chloride (98-107) mmol/L Carbon Dioxide (22-30) mmol/L BUN (7-17) mg/dL Glucose (74-99) mg/dL POC Glucose (mg/dL) 160 H (70-110) mg/dL Calcium (8.4-10.2) mg/dL AST (14-36) U/L Alkaline Phosphatase (38-126) U/L Albumin (3.5-5.0) g/dL Crossmatch Microbiology - Last 24 Hours (Table) 06/09/23 14:40 Blood Culture Gram Stain - Final Blood Blood Culture - Final Strep agalactiae - (group b) Escherichia coli Coagulase Negative Staph
[2023-06-13] MEDS: LACTATED RINGERS 1,000 ML IV SCH (14:16)
[2023-06-13] MEDS: MORPHINE SULFATE 4 MG/ML SYRINGE IV PRN (14:19)
[2023-06-13 17:37] LABS: Glucose,Whole Blood 162 mg/dL (70-110)
[2023-06-13 20:28] LABS: Glucose,Whole Blood 126 mg/dL (70-110)
[2023-06-14] MEDS: MEROPENEM 1 GM in SODIUM CHLORIDE 0.9% 100 ML IVPB SCH ×4 (00:05→23:31)
[2023-06-14] MEDS: LACTATED RINGERS 1,000 ML IV SCH ×3 (00:06→22:01)
[2023-06-14] MEDS: MORPHINE SULFATE 4 MG/ML SYRINGE IV PRN ×3 (00:09→13:25)
[2023-06-14] MEDS: THIAMINE 100 MG TAB PO SCH (07:22)
[2023-06-14] MEDS: NYSTATIN 100,000 UNIT/ML SUSP 500,000 UNIT/5 ML CUP PO SCH ×4 (07:22→22:01)
[2023-06-14] MEDS: CALCIUM CARBONATE 500 MG CHEWABLE PO SCH (07:22)
[2023-06-14] MEDS: FERROUS SULFATE 325 MG TAB PO SCH (07:23)
[2023-06-14] MEDS: FOLIC ACID 1 MG TAB PO SCH (07:23)
[2023-06-14] MEDS: allopurinoL 300 MG TAB PO SCH (07:23)
[2023-06-14] MEDS: MAGNESIUM OXIDE 400 MG TAB PO SCH (07:23)
[2023-06-14 07:41] LABS: Glucose,Whole Blood 119 mg/dL (70-110)
[2023-06-14] MEDS: PANTOPRAZOLE 40 MG/10 ML VIAL IV SCH (08:02)
[2023-06-14 09:02] LABS: WBC 10.61 X 10*3/uL (4.50-10.00)
[2023-06-14 09:03] LABS: Basophils # (A) 0.02 X 10*3/uL (0.00-0.10); Basophils % (A) 0.2 %; Eosinophils # (A) 0.02 X 10*3/uL (0.04-0.35); Eosinophils % (A) 0.2 %; HGB 8.2 g/dL (12.0-15.0); Lymphocytes # (A) 3.19 X 10*3/uL (0.90-5.00); Lymphocytes % (A) 30.1 %; MCH 27.4 pg (27.0-32.0); MCHC 31.5 g/dL (32.0-37.0); Mean Platelet Volume 9.7 FL (9.5-12.2); Monocytes # (A) 0.68 X 10*3/uL (0.20-1.00); Monocytes % (A) 6.4 %; NRBC Per 100 WBC 0 X 10*3/uL (0.00-0.01); Neutrophils # (A) 6.43 X 10*3/uL (1.80-7.70); Neutrophils % (A) 60.6 %; Platelet Count 227 X 10*3/uL (140-440); RBC 2.99 X 10*6/uL (4.10-5.20); RDW 18.4 % (11.5-14.5)
[2023-06-14 09:18] LABS: Blood Urea Nitrogen 21.2 mg/dL (9.0-27.0); Carbon Dioxide 24.4 mmol/L (21.6-31.8); Chloride 106 mmol/L (96-109); Glucose 104 mg/dL (70-110); Potassium 4.3 mmol/L (3.5-5.5); Sodium 137 mmol/L (135-145)
[2023-06-14 09:19] LABS: ALT <5 U/L (8-44); AST 6 U/L (13-35); Albumin 1.7 g/dL (3.8-4.9); Alkaline Phosphatase 159 U/L (41-126); Calcium 7.5 mg/dL (8.7-10.3); Globulin 4.3 g/dL (1.6-3.3); Total Bilirubin 0.3 mg/dL (0.3-1.2)
--- NOTE | 2023-06-14 10:42 | P.PN ---
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 Patient is wheelchair-bound. Patient is a resident of longterm facility. Nursing staff at the facility were concerned about worsening sacral decub and right trochanteric pressure ulcer. Patient has been having complaining of lethargy and weakness. There was no clear fever or chills. No complaint of nausea, abdominal pain. Initial lab work done in the ER showed WBC 26.4, hemoglobin 7.3, platelet count 462, sodium 134, potassium 5.2 BUS 79, creatinine 3.04 glucose 166 phosphorus 5.5 troponin 0.012 proBNP 3850 UA done showed nitrite negative, large amount of urine blood, leukocyte esterase moderate amount, urine WBC 182 EKG done in the ER showed heart rate of , no ST segment elevation or depression seen, no T-wave inversions seen. CT abdomen pelvis done showed no acute abnormality, distended gallbladder seen. Deep sacral decub and right decubitus ulcer with Chronic appearing underlying bony changes likely related to chronic osteomyelitis. Mild/moderate degenerative changes of the visualized spine at T10T 11. Patient admitted to internal medicine service 06/11. Patient seen and examined. Family the bedside. Patient underwent b edside debridement by general surgery. States pain is better controlled compared to yesterday. Vital signs stable 06/12. Patient seen and examined. Hemoglobin this morning is 6.8, will transfuse 1 unit of packed red blood cell. Renal functions have improved. Complaining of difficulty swallowing. States she has poor appetite 06/13. Patient seen and examined lab work done this morning showed WBC 10.3, hemoglobin 8.8, sodium 137, potassium 4.6, BUN 37, creatinine 0.53. Mother at the bedside, states she is doing much better. Denies any acute issues. States appetite is improved 06/14. Patient seen and examined. Patient has been afebrile. Appetite is slowly increasing. Denies any nausea or vomiting. Vital signs stable REVIEW OF SYSTEMS: CONSTITUTIONAL: No fever, no malaise,. CARDIOVASCULAR: No chest pain, no palpitations, no syncope. PULMONARY: No shortness of breath, no cough, GASTROINTESTINAL: No diarrhea, no nausea, no vomiting, no abdominal pain. NEUROLOGICAL: No headaches, no weakness, Assessment and plan GENERAL: The patient is alert and oriented x3, not in any acute distress. Chronically ill-looking HEENT: Pupils are round and equally reacting to light. EOMI. No scleral icterus. No conjunctival pallor. Normocephalic, atraumatic. No pharyngeal erythema. No thyromegaly. CARDIOVASCULAR: S1 and S2 present. No murmurs, rubs, or gallops. PULMONARY: Chest is clear to auscultation, no wheezing or crackles. ABDOMEN: Soft, nontender, nondistended, normoactive bowel sounds. No palpable organomegaly. Urostomy seen MUSCULOSKELETAL: Atrophy of lower extremities seen EXTREMITIES: No cyanosis, clubbing, or pedal edema. NEUROLOGICAL: Moving upper extremities. Patient has atrophy of lower extremities SKIN: Stage IV sacral decub and stage IV pressure ulcer to right torchanter Assessment and plan Bacteremia Sepsis present on admission Stage IV sacral decub stage IV pressure ulcer to right torchanter Sacral decub and right decubitus ulcer with chronic underlying bony changes likely related to chronic osteomyelitis Hyponatremia Acute on chronic kidney disease Anemia Acute urinary tract infection, present on admission with failed outpatient therapy Past history of MRSA and ESBL of the wounds recurrent urinary tract infections Asthma history, not in exacerbation Diabetes mellitus, type II, insulin-dependent Gastroesophageal reflux disease Musculoskeletal disorder History of spina bifida with hydrocephalus Sapphire I malformation Chronic renal disease Sleep apnea with a CPAP Monitor vital signs Monitor CBC Monitor CMP Continue telemetry monitoring Follow-up on blood cultures Patient underwent Excisional debridement right trochanteric decubitus ulcer on 06/11 Follow-up on wound cultures Change fluids to Ringer lactate Continue IV meropenem ID following Nephrology following Gen. surgery following Labs and medication were reviewed.. Continue same treatment. Continue with symptomatic treatment. Resume home medication. Monitor labs and vitals. DVT and GI prophylaxis. Further recommendations as per clinical course of the p atient Dictation was produced using [employer] software. please excuse any grammatical, word or spelling errors. Objective - Vital Signs Vital signs: Vital Signs Temp 98.9 F 06/14/23 07:42 Pulse 96 06/14/23 07:42 Resp 19 06/14/23 07:42 BP 102/67 06/14/23 07:42 Pulse Ox 99 06/14/23 07:55 FiO2 Intake & Output 06/13/23 06/14/23 06/14/23 18:59 06:59 18:59 Intake Total 1080 Output Total 1300 800 Balance -220 -800 Intake: Oral 1080 Output: Drainage 800 Abdomen 800 Urine 1300 Other: Voiding Method Ileal Conduit (Right) Ileal Conduit (Right) - Labs CBC & Chem 7: 06/14/23 06:26 06/14/23 06:26 Labs: Abnormal Lab Results - Last 24 Hours (Table) 06/13/23 06/13/23 06/13/23 Range/Units 12:51 17:33 20:23 WBC (4.50-10.00) X 10*3/uL RBC (4.10-5.20) X 10*6/uL Hgb (12.0-15.0) g/dL Hct (37.2-46.3) % MCHC (32.0-37.0) g/dL RDW (11.5-14.5) % Immature Gran # (0.00-0.04) X 10*3/uL Eosinophils # (0.04-0.35) X 10*3/uL Creatinine (0.6-1.5) mg/dL BUN/Creatinine Ratio (12.00-20.00) Ratio POC Glucose (mg/dL) 160 H 162 H 126 H (70-110) mg/dL Calcium (8.7-10.3) mg/dL AST (13-35) U/L ALT (8-44) U/L Alkaline Phosphatase (41-126) U/L Total Protein (6.2-8.2) g/dL Albumin (3.8-4.9) g/dL Globulin (1.6-3.3) g/dL Albumin/Globulin Ratio (1.60-3.17) Ratio 06/14/23 06/14/23 06/14/23 Range/Units 06:26 06:26 07:40 WBC 10.61 H (4.50-10.00) X 10*3/uL RBC 2.99 L (4.10-5.20) X 10*6/uL Hgb 8.2 L (12.0-15.0) g/dL Hct 26.0 L (37.2-46.3) % MCHC 31.5 L (32.0-37.0) g/dL RDW 18.4 H (11.5-14.5) % Immature Gran # 0.27 H (0.00-0.04) X 10*3/uL Eosinophils # 0.02 L (0.04-0.35) X 10*3/uL Creatinine 0.4 L (0.6-1.5) mg/dL BUN/Creatinine Ratio 53.00 H (12.00-20.00) Ratio POC Glucose (mg/dL) 119 H (70-110) mg/dL Calcium 7.5 L (8.7-10.3) mg/dL AST 6 L (13-35) U/L ALT <5 L (8-44) U/L Alkaline Phosphatase 159 H (41-126) U/L Total Protein 6.0 L (6.2-8.2) g/dL Albumin 1.7 L (3.8-4.9) g/dL Globulin 4.3 H (1.6-3.3) g/dL Albumin/Globulin Ratio 0.40 L (1.60-3.17) Ratio
--- NOTE | 2023-06-14 11:57 | P.PN ---
Subjective Patient is seen for follow-up for acute kidney injury. Serum creatinine improved to 0.5 and CO2 is improved to 21. Hemoglobin at 8.2 g/dL today. Patient is maintained on IV bicarb. Urine output charted at 1200 mL. Objective - Vital Signs Vital signs: Vital Signs Temp 98.9 F 06/14/23 07:42 Pulse 96 06/14/23 07:42 Resp 19 06/14/23 07:42 BP 102/67 06/14/23 07:42 Pulse Ox 99 06/14/23 07:55 FiO2 Intake & Output 06/13/23 06/14/23 06/14/23 18:59 06:59 18:59 Intake Total 1080 Output Total 1300 800 Balance -220 -800 Intake: Oral 1080 Output: Drainage 800 Abdomen 800 Urine 1300 Other: Voiding Method Ileal Conduit (Right) Ileal Conduit (Right) Ileal Conduit (Right) # Bowel Movements 1 - Exam Patient is awake, comfortable, no acute distress Examination of the heart S1 and S2 Examination of the lungs bilateral breath sounds are heard Abdomen is soft nontender Examination of lower extremities shows 1+ edema, patient has paraplegia - Labs CBC & Chem 7: 06/14/23 06:26 06/14/23 06:26 Labs: Abnormal Lab Results - Last 24 Hours (Table) 06/13/23 06/13/23 06/13/23 Range/Units 12:51 17:33 20:23 WBC (4.50-10.00) X 10*3/uL RBC (4.10-5.20) X 10*6/uL Hgb (12.0-15.0) g/dL Hct (37.2-46.3) % MCHC (32.0-37.0) g/dL RDW (11.5-14.5) % Immature Gran # (0.00-0.04) X 10*3/uL Eosinophils # (0.04-0.35) X 10*3/uL Creatinine (0.6-1.5) mg/dL BUN/Creatinine Ratio (12.00-20.00) Ratio POC Glucose (mg/dL) 160 H 162 H 126 H (70-110) mg/dL Calcium (8.7-10.3) mg/dL AST (13-35) U/L ALT (8-44) U/L Alkaline Phosphatase (41-126) U/L Total Protein (6.2-8.2) g/dL Albumin (3.8-4.9) g/dL Globulin (1.6-3.3) g/dL Albumin/Globulin Ratio (1.60-3.17) Ratio 06/14/23 06/14/23 06/14/23 Range/Units 06:26 06:26 07:40 WBC 10.61 H (4.50-10.00) X 10*3/uL RBC 2.99 L (4.10-5.20) X 10*6/uL Hgb 8.2 L (12.0-15.0) g/dL Hct 26.0 L (37.2-46.3) % MCHC 31.5 L (32.0-37.0) g/dL RDW 18.4 H (11.5-14.5) % Immature Gran # 0.27 H (0.00-0.04) X 10*3/uL Eosinophils # 0.02 L (0.04-0.35) X 10*3/uL Creatinine 0.4 L (0.6-1.5) mg/dL BUN/Creatinine Ratio 53.00 H (12.00-20.00) Ratio POC Glucose (mg/dL) 119 H (70-110) mg/dL Calcium 7.5 L (8.7-10.3) mg/dL AST 6 L (13-35) U/L ALT <5 L (8-44) U/L Alkaline Phosphatase 159 H (41-126) U/L Total Protein 6.0 L (6.2-8.2) g/dL Albumin 1.7 L (3.8-4.9) g/dL Globulin 4.3 H (1.6-3.3) g/dL Albumin/Globulin Ratio 0.40 L (1.60-3.17) Ratio Assessment and Plan Assessment: 1. Acute kidney injury, ATN currently nonoliguric and improving with IV hydration. UA shows significant pyuria. It is a specimen from urostomy/ileal conduit. 2. Sacral decub and right hip ulcer with concern for osteomyelitis 3. Severe anemia with hemoglobin of 6.3 mg/dL on admission status post packed RBCs transfusion. No active bleeding. 4. Gram-positive bacteremia 5. Sepsis with gram-positive bacteremia and wounds in the sacral area and right hip ulcer. 6. History of spina bifida and hydrocephalus 7. History of recurrent UTIs status post urostomy 8. Severe metabolic acidosis secondary to acute kidney injury, GI fluid loss 9. Hypokalemia status post replacement Plan: Continue LR We will see the patient on an as-needed basis.
[2023-06-14 12:13] LABS: Glucose,Whole Blood 191 mg/dL (70-110)
[2023-06-14] MEDS: MAG HYDROX/AL HYDROX/SIMETH 30 ML, diphenhydrAMINE ELIXIR 75 MG, LIDOCAINE VISCOUS 2% 3... PO SCH ×6 (13:03→17:22)
--- NOTE | 2023-06-14 16:49 | P.PN ---
Subjective Progress Note Date: 06/14/23 CHIEF COMPLAINT: Sacral ulcer HISTORY OF PRESENT ILLNESS: The patient is a 57-year-old status post debridement of sacrum trochanter. She is resting comfortably. No new complaints. ROS: No reports of nausea and vomiting. No fevers or chills. No new chest pain. No productive sputum PHYSICAL EXAM: VITAL SIGNS: Reviewed CONSTITUTIONAL: Well developed and in no acute distress. EYES: Conjuctivae without sclera icterus. Extraocular movements grossly intact. HEAD, EARS, NOSE, THROAT: Moist buccal mucosa. Head is atraumatic, normocephalic. No nasal drainage. Hard of hearing. RESPIRATORY: Non-labored respirations and equal bilateral excursions. CARDIOVASCULAR: Palpable 2+ radial pulses. ABDOMEN: Nontender. MUSCULOSKELETAL: No gross deformity of the lower extremities noted. No clubbing. No cyanosis. SKIN: Good skin turgor. Well perfused. Dressing intact. NEUROLOGIC: Cranial nerves II through XII grossly intact. No focal or lateralizing signs. PSYCH: Appropriate affect. Alert and oriented to person, place and time. CLINICAL LABS: Reviewed. ASSESSMENT: 1. Sacral ulcer 2. Chronic osteomyelitis PLAN: 1. Local wound care per wound care team. 2. Antibiotics per infectious disease Objective - Vital Signs Vital signs: Vital Signs Temp 98.3 F 06/14/23 12:17 Pulse 65 06/14/23 12:17 Resp 18 06/14/23 12:17 BP 100/67 06/14/23 12:17 Pulse Ox 99 06/14/23 12:17 FiO2 Intake & Output 06/13/23 06/14/23 06/14/23 18:59 06:59 18:59 Intake Total 1080 Output Total 1300 800 Balance -220 -800 Intake: Oral 1080 Output: Drainage 800 Abdomen 800 Urine 1300 Other: Voiding Method Ileal Conduit (Right) Ileal Conduit (Right) Ileal Conduit (Right) # Bowel Movements 1 - Labs CBC & Chem 7: 06/14/23 06:26 06/14/23 06:26 Labs: Abnormal Lab Results - Last 24 Hours (Table) 06/13/23 06/13/23 06/14/23 Range/Units 17:33 20:23 06:26 WBC 10.61 H (4.50-10.00) X 10*3/uL RBC 2.99 L (4.10-5.20) X 10*6/uL Hgb 8.2 L (12.0-15.0) g/dL Hct 26.0 L (37.2-46.3) % MCHC 31.5 L (32.0-37.0) g/dL RDW 18.4 H (11.5-14.5) % Immature Gran # 0.27 H (0.00-0.04) X 10*3/uL Eosinophils # 0.02 L (0.04-0.35) X 10*3/uL Creatinine (0.6-1.5) mg/dL BUN/Creatinine Ratio (12.00-20.00) Ratio POC Glucose (mg/dL) 162 H 126 H (70-110) mg/dL Calcium (8.7-10.3) mg/dL AST (13-35) U/L ALT (8-44) U/L Alkaline Phosphatase (41-126) U/L Total Protein (6.2-8.2) g/dL Albumin (3.8-4.9) g/dL Globulin (1.6-3.3) g/dL Albumin/Globulin Ratio (1.60-3.17) Ratio 06/14/23 06/14/23 06/14/23 Range/Units 06:26 07:40 12:12 WBC (4.50-10.00) X 10*3/uL RBC (4.10-5.20) X 10*6/uL Hgb (12.0-15.0) g/dL Hct (37.2-46.3) % MCHC (32.0-37.0) g/dL RDW (11.5-14.5) % Immature Gran # (0.00-0.04) X 10*3/uL Eosinophils # (0.04-0.35) X 10*3/uL Creatinine 0.4 L (0.6-1.5) mg/dL BUN/Creatinine Ratio 53.00 H (12.00-20.00) Ratio POC Glucose (mg/dL) 119 H 191 H (70-110) mg/dL Calcium 7.5 L (8.7-10.3) mg/dL AST 6 L (13-35) U/L ALT <5 L (8-44) U/L Alkaline Phosphatase 159 H (41-126) U/L Total Protein 6.0 L (6.2-8.2) g/dL Albumin 1.7 L (3.8-4.9) g/dL Globulin 4.3 H (1.6-3.3) g/dL Albumin/Globulin Ratio 0.40 L (1.60-3.17) Ratio
[2023-06-14 17:04] LABS: Glucose,Whole Blood 217 mg/dL (70-110)
[2023-06-14 20:36] LABS: Glucose,Whole Blood 205 mg/dL (70-110)
[2023-06-15] MEDS: HYDROcodone/APAP 5-325MG 1 EACH TAB PO PRN ×3 (01:07→23:23)
[2023-06-15] MEDS: MORPHINE SULFATE 4 MG/ML SYRINGE IV PRN ×3 (01:58→14:30)
[2023-06-15 07:01] LABS: Glucose,Whole Blood 115 mg/dL (70-110)
--- NOTE | 2023-06-15 07:14 | P.PN ---
Subjective Progress Note Date: 06/14/23 Principal diagnosis: Reason for follow-up is ESBL bacteremia UTI and infected pressure ulcer Patient is a 57-year-old female with a past medical history significant for diabetes mellitus reflux spina bifid hydrocephalus bedbound state currently residential resident, patient have chronic nonhealing wound to the sacral and the right hip area sent to the ER for concerning for possible infection did have a positive blood culture with ESBL E. coli, patient did have right trochanteric pressure ulcer debridement at the bedside by surgery on 06/11/2023 On today's evaluation that is 06/14/2023 the patient continues to be afebrile the patient is breathing comfortably currently requiring 3 to nasal cannula oxygen the patient is slightly more awake and alert denies any chest pain shortness of breath or cough no nausea vomiting or any diarrhea has been reported by the nursing staff Patient did have a white count of 10.61, creatinine 0.4 repeat blood cultures currently pending Objective - Vital Signs Vital signs: Vital Signs Temp 98.3 F 06/14/23 12:17 Pulse 65 06/14/23 12:17 Resp 18 06/14/23 12:17 BP 100/67 06/14/23 12:17 Pulse Ox 99 06/14/23 12:17 FiO2 Intake & Output 06/13/23 06/14/23 06/14/23 18:59 06:59 18:59 Intake Total 1080 Output Total 1300 800 Balance -220 -800 Intake: Oral 1080 Output: Drainage 800 Abdomen 800 Urine 1300 Other: Voiding Method Ileal Conduit (Right) Ileal Conduit (Right) Ileal Conduit (Right) # Bowel Movements 1 - Exam GENERAL DESCRIPTION: Middle-aged female lying in bed in no distress RESPIRATORY SYSTEM: Unlabored breathing , decreased breath sounds at bases HEART: S1 S2 regular rate and rhythm , ABDOMEN: Soft , no tenderness EXTREMITIES: No edema feet - Labs CBC & Chem 7: 06/14/23 06:26 06/14/23 06:26 Labs: Abnormal Lab Results - Last 24 Hours (Table) 06/13/23 06/13/23 06/14/23 Range/Units 17:33 20:23 06:26 WBC 10.61 H (4.50-10.00) X 10*3/uL RBC 2.99 L (4.10-5.20) X 10*6/uL Hgb 8.2 L (12.0-15.0) g/dL Hct 26.0 L (37.2-46.3) % MCHC 31.5 L (32.0-37.0) g/dL RDW 18.4 H (11.5-14.5) % Immature Gran # 0.27 H (0.00-0.04) X 10*3/uL Eosinophils # 0.02 L (0.04-0.35) X 10*3/uL Creatinine (0.6-1.5) mg/dL BUN/Creatinine Ratio (12.00-20.00) Ratio POC Glucose (mg/dL) 162 H 126 H (70-110) mg/dL Calcium (8.7-10.3) mg/dL AST (13-35) U/L ALT (8-44) U/L Alkaline Phosphatase (41-126) U/L Total Protein (6.2-8.2) g/dL Albumin (3.8-4.9) g/dL Globulin (1.6-3.3) g/dL Albumin/Globulin Ratio (1.60-3.17) Ratio 06/14/23 06/14/23 06/14/23 Range/Units 06:26 07:40 12:12 WBC (4.50-10.00) X 10*3/uL RBC (4.10-5.20) X 10*6/uL Hgb (12.0-15.0) g/dL Hct (37.2-46.3) % MCHC (32.0-37.0) g/dL RDW (11.5-14.5) % Immature Gran # (0.00-0.04) X 10*3/uL Eosinophils # (0.04-0.35) X 10*3/uL Creatinine 0.4 L (0.6-1.5) mg/dL BUN/Creatinine Ratio 53.00 H (12.00-20.00) Ratio POC Glucose (mg/dL) 119 H 191 H (70-110) mg/dL Calcium 7.5 L (8.7-10.3) mg/dL AST 6 L (13-35) U/L ALT <5 L (8-44) U/L Alkaline Phosphatase 159 H (41-126) U/L Total Protein 6.0 L (6.2-8.2) g/dL Albumin 1.7 L (3.8-4.9) g/dL Globulin 4.3 H (1.6-3.3) g/dL Albumin/Globulin Ratio 0.40 L (1.60-3.17) Ratio Assessment and Plan (1) Bacteremia Current Visit: Yes Status: Acute Code(s): R78.81 - BACTEREMIA SNOMED Code(s): 6797251 (2) Allergy to multiple antibiotics Current Visit: Yes Status: Acute Code(s): Z88.1 - ALLERGY STATUS TO OTHER ANTIBIOTIC AGENTS SNOMED Code(s): 394648931 (3) Pressure injury of sacral region, stage 4 Current Visit: Yes Status: Acute Code(s): L89.154 - PRESSURE ULCER OF SACRAL REGION, STAGE 4 SNOMED Code(s): 91117891338831 (4) Sepsis Current Visit: Yes Status: Acute Code(s): A41.9 - SEPSIS, UNSPECIFIED ORGANISM SNOMED Code(s): 79210253 (5) UTI (urinary tract infection) Current Visit: Yes Status: Acute Code(s): N39.0 - URINARY TRACT INFECTION, SITE NOT SPECIFIED SNOMED Code(s): 02282896 Plan: 1patient was in the hospital with sepsis in this patient who did have a tachycardia hypeotension elevated white count meeting criteria for SIRS/sepsis, source is likely infected sacral pressure ulcer and likely UTI 2-patient did have a positive blood culture with strep and he has been E. coli source likely infected sacral pressure ulcer/UTI 3-renal insufficiency and high risk of nephrotoxicity, Patient did show improvement in her kidney function. 4-patient with multiple antibiotic ALLERGIES that would limit the number of antibiotic safe to use 5patient has been evaluated by general surgery and did have a debridement of the right trochanteric pressure ulcer 6-positive blood culture with coagulase-negative staph concern for possible contamination repeat blood cultures currently pending. 7patient to continue with the meropenem hopefully to get PICC line for outpatient IV antibiotic therapy in the next 24 to 48 hours as long as repeat blood cultures are negative Dictation was produced using [employer] dictation software. please excuse any grammatical, word or spelling errors.
[2023-06-15] MEDS: MAG HYDROX/AL HYDROX/SIMETH 30 ML, diphenhydrAMINE ELIXIR 75 MG, LIDOCAINE VISCOUS 2% 3... PO SCH ×9 (08:22→18:06)
[2023-06-15] MEDS: MAGNESIUM OXIDE 400 MG TAB PO SCH (08:53)
[2023-06-15] MEDS: FOLIC ACID 1 MG TAB PO SCH (08:53)
[2023-06-15] MEDS: MEROPENEM 1 GM in SODIUM CHLORIDE 0.9% 100 ML IVPB SCH ×3 (08:53→23:23)
[2023-06-15] MEDS: FERROUS SULFATE 325 MG TAB PO SCH (08:53)
[2023-06-15] MEDS: allopurinoL 300 MG TAB PO SCH (08:53)
[2023-06-15] MEDS: PANTOPRAZOLE 40 MG/10 ML VIAL IV SCH (08:53)
[2023-06-15] MEDS: THIAMINE 100 MG TAB PO SCH (08:53)
[2023-06-15] MEDS: NYSTATIN 100,000 UNIT/ML SUSP 500,000 UNIT/5 ML CUP PO SCH ×4 (08:53→23:23)
[2023-06-15] MEDS: CALCIUM CARBONATE 500 MG CHEWABLE PO SCH (08:53)
[2023-06-15 11:51] LABS: Glucose,Whole Blood 141 mg/dL (70-110)
--- NOTE | 2023-06-15 13:15 | P.PN ---
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 Patient is wheelchair-bound. Patient is a resident of custodial facility. Nursing staff at the facility were concerned about worsening sacral decub and right trochanteric pressure ulcer. Patient has been having complaining of lethargy and weakness. There was no clear fever or chills. No complaint of nausea, abdominal pain. Initial lab work done in the ER showed WBC 26.4, hemoglobin 7.3, platelet count 462, sodium 134, potassium 5.2 BUS 79, creatinine 3.04 glucose 166 phosphorus 5.5 troponin 0.012 proBNP 3850 UA done showed nitrite negative, large amount of urine blood, leukocyte esterase moderate amount, urine WBC 182 EKG done in the ER showed heart rate of , no ST segment elevation or depression seen, no T-wave inversions seen. CT abdomen pelvis done showed no acute abnormality, distended gallbladder seen. Deep sacral decub and right decubitus ulcer with Chronic appearing underlying bony changes likely related to chronic osteomyelitis. Mild/moderate degenerative changes of the visualized spine at T10T 11. Patient admitted to internal medicine service 06/11. Patient seen and examined. Family the bedside. Patient underwent bedside debridement by general surgery. States pain is better controlled compared to yesterday. Vital signs stable 06/12. Patient seen and examined. Hemoglobin this morning is 6.8, will transfuse 1 unit of packed red blood cell. Renal functions have improved. Complaining of difficulty swallowing. States she has poor appetite 06/13. Patient seen and examined lab work done this morning showed WBC 10.3, hemoglobin 8.8, sodium 137, potassium 4.6, BUN 37, creatinine 0.53. Mother at the bedside, states she is doing much better. Denies any acute issues. States appetite is improved 06/14. Patient seen and examined. Patient has been afebrile. Appetite is slowly increasing. Denies any nausea or vomiting. Vital signs stable 06/15. Patient seen and examined . Laying comfortably in the bed. Tolerating diet. States she feels better REVIEW OF SYSTEMS: CONSTITUTIONAL: No fever, no malaise,. CARDIOVASCULAR: No chest pain, no palpitations, no syncope. PULMONARY: No shortness of breath, no cough, GASTROINTESTINAL: No diarrhea, no nausea, no vomiting, no abdominal pain. NEUROLOGICAL: No headaches, no weakness, Assessment and plan GENERAL: The patient is alert and oriented x3, not in any acute distress. Chronically ill-looking HEENT: Pupils are round and equally reacting to light. EOMI. No scleral icterus. No conjunctival pallor. Normocephalic, atraumatic. No pharyngeal erythema. No thyromegaly. CARDIOVASCULAR: S1 and S2 present. No murmurs, rubs, or gallops. PULMONARY: Chest is clear to auscultation, no wheezing or crackles. ABDOMEN: Soft, nontender, nondistended, normoactive bowel sounds. No palpable organomegaly. Urostomy seen MUSCULOSKELETAL: Atrophy of lower extremities seen EXTREMITIES: No cyanosis, clubbing, or pedal edema. NEUROLOGICAL: Moving upper extremities. Patient has atrophy of lower extremities SKIN: Stage IV sacral decub and stage IV pressure ulcer to right torchanter Assessment and plan Bacteremia Sepsis present on admission Stage IV sacral decub stage IV pressure ulcer to right torchanter Sacral decub and right decubitus ulcer with chronic underlying bony changes likely related to chronic osteomyelitis Hyponatremia Acute on chronic kidney disease Anemia Acute urinary tract infection, present on admission with failed outpatient therapy Past history of MRSA and ESBL of the wounds recurrent urinary tract infections Asthma history, not in exacerbation Diabetes mellitus, type II, insulin-dependent Gastroesophageal reflux disease Musculoskeletal disorder History of spina bifida with hydrocephalus Sapphire I malformation Chronic renal disease Sleep apnea with a CPAP Monitor vital signs Monitor CBC Monitor CMP Continue telemetry monitoring Follow-up on blood cultures Patient underwent Excisional debridement right trochanteric decubitus ulcer on 06/11 Follow-up on wound cultures DC fluids Continue IV meropenem ID following Nephrology following Gen. surgery following Labs and medication were reviewed.. Continue same treatment. Continue with symptomatic treatment. Resume home medication. Monitor labs and vitals. DVT and GI prophylaxis. Further recommendations as per clinical course of the patient Dictation was produced using [employer] dictation software. please excuse any grammatical, word or spelling errors. Objective - Vital Signs Vital signs: Vital Signs Temp 98.8 F 12/26/23 12:20 Pulse 94 06/15/23 12:20 Resp 18 06/15/23 12:20 BP 102/68 06/15/23 12:20 Pulse Ox 96 06/15/23 12:20 FiO2 Intake & Output 06/14/23 06/15/23 06/15/23 18:59 06:59 18:59 Output Total 1300 1400 Balance -1300 -1400 Output: Urine 1300 1400 Other: Voiding Method Ileal Conduit (Right) Ileal Conduit (Right) Ileal Conduit (Righ t) # Bowel Movements 1 - Labs CBC & Chem 7: 06/14/23 06:26 06/14/23 06:26 Labs: Abnormal Lab Results - Last 24 Hours (Table) 06/10/23 06/14/23 06/14/23 Range/Units 10:31 17:03 20:34 POC Glucose (mg/dL) 217 H 205 H (70-110) mg/dL C-Reactive Protein (<1.0) mg/dL RBC Folate 1,212 H (280 - 791) ng/mL 06/15/23 06/15/23 06/15/23 Range/Units 07:00 08:43 11:50 POC Glucose (mg/dL) 115 H 141 H (70-110) mg/dL C-Reactive Protein 14.8 H (<1.0) mg/dL RBC Folate (280 - 791) ng/mL
--- NOTE | 2023-06-15 16:02 | P.PN ---
Subjective Progress Note Date: 06/15/23 Principal diagnosis: Reason for follow-up is ESBL bacteremia UTI and infected pressure ulcer Patient is a 57-year-old female with a past medical history significant for diabetes mellitus reflux spina bifid hydrocephalus bedbound state currently intermediate resident, patient have chronic nonhealing wound to the sacral and the right hip area sent to the ER for concerning for possible infection did have a positive blood culture with ESBL E. coli, patient did have right trochanteric pressure ulcer debridement at the bedside by surgery on 06/11/2023 On today's evaluation that is 06/15/2023 the patient remains to be afebrile patient is more awake and alert today and is breathing comfortably on room air denies any chest pain shortness of breath or cough no nausea vomiting or diarrhea has been complaining of some lower back pain. Patient did have white count of 10.61 as of yesterday she did have a sed rate of 85 CRP is 14. 8 repeat blood cultures pending Objective - Vital Signs Vital signs: Vital Signs Temp 98.8 F 06/15/23 12:20 Pulse 94 06/15/23 12:20 Resp 18 06/15/23 12:20 BP 102/68 06/15/23 12:20 Pulse Ox 96 06/15/23 12:20 FiO2 Intake & Output 06/14/23 06/15/23 06/15/23 18:59 06:59 18:59 Output Total 1300 1400 Balance -1300 -1400 Output: Urine 1300 1400 Other: Voiding Method Ileal Conduit (Right) Ileal Conduit (Right) Ileal Conduit (Right) # Bowel Movements 1 - Exam GENERAL DESCRIPTION: Middle-aged female lying in bed in no distress RESPIRATORY SYSTEM: Unlabored breathing , decreased breath sounds at bases HEART: S1 S2 regular rate and rhythm , ABDOMEN: Soft , no tenderness EXTREMITIES: No edema feet - Labs CBC & Chem 7: 06/14/23 06:26 06/14/23 06:26 Labs: Abnormal Lab Results - Last 24 Hours (Table) 06/10/23 06/14/23 06/14/23 Range/Units 10:31 17:03 20:34 ESR (0-30) mm/Hr POC Glucose (mg/dL) 217 H 205 H (70-110) mg/dL C-Reactive Protein (<1.0) mg/dL RBC Folate 1,212 H (280 - 791) ng/mL 06/15/23 06/15/23 06/15/23 Range/Units 07:00 08:43 11:47 ESR 85 H (0-30) mm/Hr POC Glucose (mg/dL) 115 H (70-110) mg/dL C-Reactive Protein 14.8 H (<1.0) mg/dL RBC Folate (280 - 791) ng/mL 06/15/23 Range/Units 11:50 ESR (0-30) mm/Hr POC Glucose (mg/dL) 141 H (70-110) mg/dL C-Reactive Protein (<1.0) mg/dL RBC Folate (280 - 791) ng/mL Assessment and Plan (1) Bacteremia Current Visit: Yes Status: Acute Code(s): R78.81 - BACTEREMIA SNOMED Code(s): 1319314 (2) Allergy to multiple antibiotics Current Visit: Yes Status: Acute Code(s): Z88.1 - ALLERGY STATUS TO OTHER AN TIBIOTIC AGENTS SNOMED Code(s): 748273467 (3) Pressure injury of sacral region, stage 4 Current Visit: Yes Status: Acute Code(s): L89.154 - PRESSURE ULCER OF SACRAL REGION, STAGE 4 SNOMED Code(s): 36682315808543 (4) Sepsis Current Visit: Yes Status: Acute Code(s): A41.9 - SEPSIS, UNSPECIFIED ORGANISM SNOMED Code(s): 28415990 (5) UTI (urinary tract infection) Current Visit: Yes Status: Acute Code(s): N39.0 - URINARY TRACT INFECTION, SITE NOT SPECIFIED SNOMED Code(s): 34931379 Plan: 1patient was in the hospital with sepsis in this patient who did have a tachycardia hypeotension elevated white count meeting criteria for SIRS/sepsis, source is likely infected sacral pressure ulcer and likely UTI 2-patient did have a positive blood culture with strep and he has been E. coli source likely infected sacral pressure ulcer/UTI 3-renal insufficiency and high risk of nephrotoxicity, Patient did show improvement in her kidney function. 4-patient with multiple antibiotic ALLERGIES that would limit the number of antibiotic safe to use 5patient has been evaluated by general surgery and did have a debridement of the right trochanteric pressure ulcer 6-positive blood culture with coagulase-negative staph concern for possible contamination repeat blood cultures currently pending. 7patient mention she did have a port on the right chest wall need to be checked if it is functional we can use that instead of placing a PICC line continue with the meropenem will be transition to Invanz on discharge Father at the bedside questions were answered Dictation was produced using [employer] software. please excuse any grammatical, word or spelling errors. Time with Patient: Less than 30
[2023-06-15 17:45] LABS: Glucose,Whole Blood 166 mg/dL (70-110)
[2023-06-15 20:39] LABS: Glucose,Whole Blood 223 mg/dL (70-110)
[2023-06-16] MEDS: MORPHINE SULFATE 4 MG/ML SYRINGE IV PRN ×3 (02:02→20:15)
[2023-06-16 07:44] LABS: Glucose,Whole Blood 96 mg/dL (70-110)
[2023-06-16] MEDS: FERROUS SULFATE 325 MG TAB PO SCH (08:29)
[2023-06-16] MEDS: MAGNESIUM OXIDE 400 MG TAB PO SCH (08:29)
[2023-06-16] MEDS: MEROPENEM 1 GM in SODIUM CHLORIDE 0.9% 100 ML IVPB SCH ×2 (08:29→15:41)
[2023-06-16] MEDS: PANTOPRAZOLE 40 MG/10 ML VIAL IV SCH (08:29)
[2023-06-16] MEDS: THIAMINE 100 MG TAB PO SCH (08:29)
[2023-06-16] MEDS: FOLIC ACID 1 MG TAB PO SCH (08:29)
[2023-06-16] MEDS: CALCIUM CARBONATE 500 MG CHEWABLE PO SCH (08:29)
[2023-06-16] MEDS: allopurinoL 300 MG TAB PO SCH (08:30)
[2023-06-16] MEDS: MAG HYDROX/AL HYDROX/SIMETH 30 ML, diphenhydrAMINE ELIXIR 75 MG, LIDOCAINE VISCOUS 2% 3... PO SCH ×9 (08:30→17:32)
[2023-06-16] MEDS: NYSTATIN 100,000 UNIT/ML SUSP 500,000 UNIT/5 ML CUP PO SCH ×4 (08:30→23:07)
[2023-06-16 10:58] LABS: Basophils # (A) 0.03 X 10*3/uL (0.00-0.10); Basophils % (A) 0.3 %; Eosinophils # (A) 0.02 X 10*3/uL (0.04-0.35); Eosinophils % (A) 0.2 %; HCT 25.7 % (37.2-46.3); HGB 7.8 g/dL (12.0-15.0); Lymphocytes # (A) 2.74 X 10*3/uL (0.90-5.00); Lymphocytes % (A) 31.1 %; MCH 26.7 pg (27.0-32.0); MCHC 30.4 g/dL (32.0-37.0); Mean Platelet Volume 9.4 FL (9.5-12.2); Monocytes # (A) 0.71 X 10*3/uL (0.20-1.00); Monocytes % (A) 8.1 %; NRBC Per 100 WBC 0 X 10*3/uL (0.00-0.01); Neutrophils # (A) 5.22 X 10*3/uL (1.80-7.70); Neutrophils % (A) 59.3 %; Platelet Count 294 X 10*3/uL (140-440); RBC 2.92 X 10*6/uL (4.10-5.20); RDW 17.9 % (11.5-14.5); WBC 8.81 X 10*3/uL (4.50-10.00)
--- NOTE | 2023-06-16 11:06 | P.PN ---
Subjective Progress Note Date: 06/16/23 Principal diagnosis: Decubitus ulcer Patient doing better. Much more alert. She is afebrile. Wounds are unchanged in size but clean at this time. Objective - Vital Signs Vital signs: Vital Signs Temp 98.3 F 06/16/23 07:40 Pulse 103 H 06/16/23 07:40 Resp 17 06/16/23 07:40 BP 102/63 06/16/23 07:40 Pulse Ox 95 06/16/23 09:01 FiO2 Intake & Output 06/15/23 06/16/23 06/16/23 18:59 06:59 18:59 Intake Total 240 Output Total 1800 900 Balance -1800 -660 Weight 140 kg Intake: Oral 240 Output: Urine 1800 900 Other: Voiding Method Ileal Conduit (Right) Ileal Conduit (Right) # Bowel Movements 1 1 - Exam Sacral and right trochanteric decubitus ulcers with minimal slough, mild tenderness, no erythema or abscess - Labs CBC & Chem 7: 06/16/23 06:30 06/14/23 06:26 Labs: Abnormal Lab Results - Last 24 Hours (Table) 06/10/23 06/15/23 06/15/23 Range/Units 10:31 08:43 11:47 RBC (4.10-5.20) X 10*6/uL Hgb (12.0-15.0) g/dL Hct (37.2-46.3) % MCH (27.0-32.0) pg MCHC (32.0-37.0) g/dL RDW (11.5-14.5) % MPV (9.5-12.2) FL Immature Gran # (0.00-0.04) X 10*3/uL Eosinophils # (0.04-0.35) X 10*3/uL ESR 85 H (0-30) mm/Hr POC Glucose (mg/dL) (70-110) mg/dL C-Reactive Protein 14.8 H (<1.0) mg/dL RBC Folate 1,212 H (280 - 791) ng/mL 06/15/23 06/15/23 06/15/23 Range/Units 11:50 17:44 20:36 RBC (4.10-5.20) X 10*6/uL Hgb (12.0-15.0) g/dL Hct (37.2-46.3) % MCH (27.0-32.0) pg MCHC (32.0-37.0) g/dL RDW (11.5-14.5) % MPV (9.5-12.2) FL Immature Gran # (0.00-0.04) X 10*3/uL Eosinophils # (0.04-0.35) X 10*3/uL ESR (0-30) mm/Hr POC Glucose (mg/dL) 141 H 166 H 223 H (70-110) mg/dL C-Reactive Protein (<1.0) mg/dL RBC Folate (280 - 791) ng/mL 06/16/23 Range/Units 06:30 RBC 2.92 L (4.10-5.20) X 10*6/uL Hgb 7.8 L (12.0-15.0) g/dL Hct 25.7 L (37.2-46.3) % MCH 26.7 L (27.0-32.0) pg MCHC 30.4 L (32.0-37.0) g/dL RDW 17.9 H (11.5-14.5) % MPV 9.4 L (9.5-12.2) FL Immature Gran # 0.09 H (0.00-0.04) X 10*3/uL Eosinophils # 0.02 L (0.04-0.35) X 10*3/uL ESR (0-30) mm/Hr POC Glucose (mg/dL) (70-110) mg/dL C-Reactive Protein (<1.0) mg/dL RBC Folate (280 - 791) ng/mL Assessment and Plan (1) Pressure injury of right hip, stage 4 Narrative/Plan: Patient doing fairly well after recent bedside debridement of the right trochanteric decubitus ulcer. Continue local wound care. Continue antibiotics. Apparently unclear whether Port-A-Cath is functioning. Will consult interventional radiology to assess. We will sign off at this time. Please contact if needed. Current Visit: Yes Status: Acute Code(s): L89.214 - PRESSURE ULCER OF RIGHT HIP, STAGE 4 SNOMED Code(s): 39044996847853
[2023-06-16 11:10] LABS: BUN/Creat Ratio 43.67 Ratio (12.00-20.00); Blood Urea Nitrogen 13.1 mg/dL (9.0-27.0); Chloride 101 mmol/L (96-109); Glucose 90 mg/dL (70-110); Potassium 4.5 mmol/L (3.5-5.5); Sodium 133 mmol/L (135-145)
[2023-06-16 11:11] LABS: ALT <5 U/L (8-44); AST 6 U/L (13-35); Albumin 1.7 g/dL (3.8-4.9); Alkaline Phosphatase 135 U/L (41-126); Calcium 7.3 mg/dL (8.7-10.3); Carbon Dioxide 25.3 mmol/L (21.6-31.8); Globulin 4.3 g/dL (1.6-3.3); Total Bilirubin 0.3 mg/dL (0.3-1.2)
[2023-06-16] MEDS: HYDROcodone/APAP 5-325MG 1 EACH TAB PO PRN ×2 (11:28→23:15)
[2023-06-16 11:54] LABS: Glucose,Whole Blood 174 mg/dL (70-110)
--- NOTE | 2023-06-16 13:30 | P.PN ---
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 Patient is wheelchair-bound. Patient is a resident of [facility] facility. Nursing staff at the facility were concerned about worsening sacral decub and right trochanteric pressure ulcer. Patient has been having complaining of lethargy and weakness. There was no clear fever or chills. No complaint of nausea, abdominal pain. Initial lab work done in the ER showed WBC 26.4, hemoglobin 7.3, platelet count 462, sodium 134, potassium 5.2 BUS 79, creatinine 3.04 glucose 166 phosphorus 5.5 troponin 0.012 proBNP 3850 UA done showed nitrite negative, large amount of urine blood, leukocyte esterase moderate amount, urine WBC 182 EKG done in the ER showed heart rate of , no ST segment elevation or depression seen, no T-wave inversions seen. CT abdomen pelvis done showed no acute abnormality, distended gallbladder seen. Deep sacral decub and right decubitus ulcer with Chronic appearing underlying bony changes likely related to chronic osteomyelitis. Mild/moderate degenerative changes of the visualized spine at T10T . Patient admitted to internal medicine service 06/11. Patient seen and examined. Family the bedside. Patient underwent b edside debridement by general surgery. States pain is better controlled compared to yesterday. Vital signs stable 06/12. Patient seen and examined. Hemoglobin this morning is 6.8, will transfuse 1 unit of packed red blood cell. Renal functions have improved. Complaining of difficulty swallowing. States she has poor appetite 06/13. Patient seen and examined lab work done this morning showed WBC 10.3, hemoglobin 8.8, sodium 137, potassium 4.6, BUN 37, creatinine 0.53. Mother at the bedside, states she is doing much better. Denies any acute issues. States appetite is improved 06/14. Patient seen and examined. Patient has been afebrile. Appetite is slowly increasing. Denies any nausea or vomiting. Vital signs stable 06/15. Patient seen and examined . Laying comfortably in the bed. Tolerating diet. States she feels better 06/16. Patient seen and examined. Hemoglobin this morning is 7.8, WBC 8.8, sodium 1:30, potassium 4.5. Surgery evaluated the patient's wounds, recommended wound care, recommended no further debridement. REVIEW OF SYSTEMS: CONSTITUTIONAL: No fever, no malaise,. CARDIOVASCULAR: No chest pain, no palpitations, no syncope. PULMONARY: No shortness of breath, no cough, GASTROINTESTINAL: No diarrhea, no nausea, no vomiting, no abdominal pain. NEUROLOGICAL: No headaches, no weakness, Assessment and plan GENERAL: The patient is alert and oriented x3, not in any acute distress. Chronically ill-looking HEENT: Pupils are round and equally reacting to light. EOMI. No scleral icterus. No conjunctival pallor. Normocephalic, atraumatic. No pharyngeal erythema. No thyromegaly. CARDIOVASCULAR: S1 and S2 present. No murmurs, rubs, or gallops. PULMONARY: Chest is clear to auscultation, no wheezing or crackles. ABDOMEN: Soft, nontender, nondistended, normoactive bowel sounds. No palpable organomegaly. Urostomy seen MUSCULOSKELETAL: Atrophy of lower extremities seen EXTREMITIES: No cyanosis, clubbing, or pedal edema. NEUROLOGICAL: Moving upper extremities. Patient has atrophy of lower extremities SKIN: Stage IV sacral decub and stage IV pressure ulcer to right torchanter Assessment and plan Bacteremia Sepsis present on admission Stage IV sacral decub stage IV pressure ulcer to right torchanter Sacral decub and right decubitus ulcer with chronic underlying bony changes likely related to chronic osteomyelitis Hyponatremia Acute on chronic kidney disease Anemia Acute urinary tract infection, present on admission with failed outpatient therapy Past history of MRSA and ESBL of the wounds recurrent urinary tract infections Asthma history, not in exacerbation Diabetes mellitus, type II, insulin-dependent Gastroesophageal reflux disease Musculoskeletal disorder History of spina bifida with hydrocephalus Sapphire I malformation Chronic renal disease Sleep apnea with a CPAP Monitor vital signs Monitor CBC Monitor CMP Continue telemetry monitoring Follow-up on blood cultures Patient underwent Excisional debridement right trochanteric decubitus ulcer on 06/11 Follow-up on wound cultures DC fluids Continue IV meropenem ID following Nephrology following Gen. surgery following, recommended wound care, recommended no further debridement. Labs and medication were reviewed.. Continue same treatment. Continue with symptomatic treatment. Resume home medication. Monitor labs and vitals. DVT and GI prophylaxis. Further recommendations as per clinical course of the patient Dictation was produced using [employer] dictation software. please excuse any grammatical, word or spelling errors. Objective - Vital Signs Vital signs: Vital Signs Temp 98.3 F 06/16/23 07:40 Pulse 103 H 06/16/23 07:40 Resp 17 06/16/23 07:40 BP 102/63 06/16/23 07:40 Pulse Ox 95 06/16/23 09:01 FiO2 Intake & Output 06/15/23 06/16/23 06/16/23 18:59 06:59 18:59 Intake Total 240 Output Total 1800 900 Balance -1800 -660 Weight 140 kg Intake: Oral 240 Output: Urine 1800 900 Other: Voiding Method Ileal Conduit (Right) Ileal Conduit (Right) Self- Catheterization Ileal Conduit (Right) # Bowel Movements 1 1 - Labs CBC & Chem 7: 06/16/23 06:30 06/16/23 06:30 Labs: Abnormal Lab Results - Last 24 Hours (Table) 06/15/23 06/15/23 06/15/23 Range/Units 11:47 17:44 20:36 RBC (4.10-5.20) X 10*6/uL Hgb (12.0-15.0) g/dL Hct (37.2-46.3) % MCH (27.0-32.0) pg MCHC (32.0-37.0) g/dL RDW (11.5-14.5) % MPV (9.5-12.2) FL Immature Gran # (0.00-0.04) X 10*3/uL Eosinophils # (0.04-0.35) X 10*3/uL ESR 85 H (0-30) mm/Hr Sodium (135-145) mmol/L Creatinine (0.6-1.5) mg/dL BUN/Creatinine Ratio (12.00-20.00) Ratio POC Glucose (mg/dL) 166 H 223 H (70-110) mg/dL Calcium (8.7-10.3) mg/dL AST (13-35) U/L ALT (8-44) U/L Alkaline Phosphatase (41-126) U/L Total Protein (6.2-8.2) g/dL Albumin (3.8-4.9) g/dL Globulin (1.6-3.3) g/dL Albumin/Globulin Ratio (1.60-3.17) Ratio 06/16/23 06/16/23 06/16/23 Range/Units 06:30 06:30 11:53 RBC 2.92 L (4.10-5.20) X 10*6/uL Hgb 7.8 L (12.0-15.0) g/dL Hct 25.7 L (37.2-46.3) % MCH 26.7 L (27.0-32.0) pg MCHC 30.4 L (32.0-37.0) g/dL RDW 17.9 H (11.5-14.5) % MPV 9.4 L (9.5-12.2) FL Immature Gran # 0.09 H (0.00-0.04) X 10*3/uL Eosinophils # 0.02 L (0.04-0.35) X 10*3/uL ESR (0-30) mm/Hr Sodium 133 L (135-145) mmol/L Creatinine 0.3 L (0.6-1.5) mg/dL BUN/Creatinine Ratio 43.67 H (12.00-20.00) Ratio POC Glucose (mg/dL) 174 H (70-110) mg/dL Calcium 7.3 L (8.7-10.3) mg/dL AST 6 L (13-35) U/L ALT <5 L (8-44) U/L Alkaline Phosphatase 135 H (41-126) U/L Total Protein 6.0 L (6.2-8.2) g/dL Albumin 1.7 L (3.8-4.9) g/dL Globulin 4.3 H (1.6-3.3) g/dL Albumin/Globulin Ratio 0.40 L (1.60-3.17) Ratio
--- NOTE | 2023-06-16 15:08 | P.GSCN ---
History of Present Illness Consult date: 06/16/23 Reason for Consult: IR CVA device check with fluoroscopy. Venogram Requesting physician: Ted Walters History of present illness: This a pleasant 57-year-old female who was admitted on 06/09/2023 bactermia. They on medical history significant for diabetes mellitus, spina bifida, hydrocephalus, and wheelchair bound with nonhealing chronic sacral wound medulla right trochanteric ulcer and urinary tract infection. Patient has a port in her right chest wall which she states Dr. Cedeno put in earlier in May it looks like he inserted a right subclavian Port-A-Cath on 06/10/2022, not this May. Patient states she has not been using it and she is unsure if it works. She states she was told that they clipped it and that it was not functioning because they were concerned for source of infection. Patient is very lethargic at this time and unsure how accurate history is. Blood cultures were positive on 06/09/2023 for group B strep, E. coli, coagulase-negative staph. Patient is currently on meropenem IV antibiotics and will need long-term antibiotics. Vascular surgery was consulted because there is no interventional radiology available in the hospital, further evaluation of Port-A-Cath is ne eded. Patient currently denies any shortness of breath, chest pain, fevers or chills. She is very lethargic. Denies any pain, redness or drainage from port site. Review of Systems A 14 point review systems was completed all pertinent positives and negatives as stated in the HPI. Past Medical History Past Medical History: Asthma, Diabetes Mellitus, GERD/Reflux, Musculoskeletal Disorder, Neurologic Disorder, Pneumonia, Renal Disease, Sleep Apnea/CPAP/BIPAP Additional Past Medical History / Comment(s): 08-09-15 admitted with cellulitis of external nose. other pst medical hx includes: hx. 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, MRSA Year Discovered:: 06/09/23 ESBL;07/07/21 MRSA MDRO Source:: MRSA BUTTOCK, ESBL Blood Past Surgical History: Back Surgery, Bowel Resection, Orthopedic Surgery Additional Past Surgical History / Comment(s): multiple surgeries for hydrocephalus, urostomy x 2, multiple hip,leg, foot surgeries, ankles fused, VA shunt, pt stated back sx was to remove spina bifida growth, egd Past Anesthesia/Blood Transfusion Reactions: No Reported Reaction Past Psychological History: No Psychological Hx Reported Smoking Status: Never smoker Past Alcohol Use History: None Reported Past Drug Use History: None Reported - Past Family History Father Family Medical History: Hypertension Additional Family Medical History / Comment(s): gout, heart murmur, rheumatic fever as child, tia Mother Family Medical History: Cancer, Hypertension Additional Family Medical History / Comment(s): interstitial cystitis, breast cancer x2, diet controlled diabetic, hiatal hernia Medications and Allergies Home Medications Medication Instructions Recorded Confirmed Type allopurinoL [Zyloprim] 300 mg PO DAILY 10/04/14 06/09/23 History Torsemide [Demadex] 20 mg PO BID 30 Days #60 tab 04/30/22 06/09/23 Rx Calcium Carbonate 500 mg PO DAILY 06/09/23 06/09/23 History Cholestyramine (with Sugar) 4 gm PO TID PRN 06/09/23 06/09/23 History [Questran Packet] Ferrous Sulfate [Feosol] 325 mg PO DAILY 06/09/23 06/09/23 History Folic Acid 1 mg PO DAILY 06/09/23 06/09/23 History HYDROcodone/APAP 5-325MG [[place] 1 tab PO Q4H PRN 06/09/23 06/09/23 History 5-325] Ibuprofen [Motrin Ib] 400 mg PO Q6H PRN 06/09/23 06/09/23 History Lidocaine Viscous 2% [Xylocaine 5 ml MUCOUS MEM Q4H PRN 06/09/23 06/09/23 History Viscous] Magnesium Oxide [Mag-Ox] 400 mg PO DAILY 06/09/23 06/09/23 History Menthol [Icy Hot] 2 patch TRANSDERM DAILY 06/09/23 06/09/23 History Thiamine [Vitamin B-1] 100 mg PO DAILY 06/09/23 06/09/23 History hydrOXYzine HCL [Atarax] 25 mg PO Q8HR PRN 06/09/23 06/09/23 History Allergies Allergy/AdvReac Type Severity Reaction Status Date / Time amoxicillin trihydrate Allergy Rash/Hives Verified 06/09/23 17:28 [From Augmentin] banana Allergy Unknown Verified 06/09/23 17:28 chestnut Allergy Unknown Verified 06/09/23 17:28 ciprofloxacin [From Cipro] Allergy Rash/Hives Verified 06/09/23 17:28 ciprofloxacin HCl Allergy Rash/Hives Verified 06/09/23 17:28 [From Cipro] kiwi Allergy Unknown Verified 06/09/23 17:28 Latex, Natural Rubber Allergy Anaphylaxis Verified 06/09/23 17:28 methylprednisolone Allergy Rash/Hives Verified 06/09/23 17:28 [From Solu-Medrol] midazolam Allergy Unknown Verified 06/09/23 17:28 nitrofurantoin Allergy Rash/Hives Verified 06/09/23 17:28 macrocrystalline [From Macrodantin] oxacillin Allergy Unknown Verified 06/09/23 17:28 potassium clavulanate Allergy Rash/Hives Verified 06/09/23 17:28 [From Augmentin] Sulfa (Sulfonamide Allergy Rash/Hives Verified 06/09/23 17:28 Antibiotics) vancomycin Allergy Anaphylaxis Verified 06/09/23 17:28 Beef Containing Products AdvReac Diarrhea Verified 06/09/23 17:28 [Beef] sucralose AdvReac Diarrhea Verified 06/09/23 17:28 [From Splenda (sucralose)] callagen Allergy Rash/Hives Uncoded 05/28/22 17:24 Surgical - Exam Vital Signs Temp Pulse Resp BP Pulse Ox 97.6 F 91 18 94/60 97 06/09/23 13:41 06/09/23 13:41 06/09/23 13:41 06/09/23 13:41 06/09/23 13:41 - General General appearance: The patient is alert, oriented, appears in no acute distress. HET: Head is normocephalic and atraumatic. Neck: Supple. Heart: Regular. Lungs: Equal expansion, normal respiratory effort. Chest: Chest wall with right Port-A-Cath in place, no surrounding erythema, tenderness or drainage. Abdomen: Soft, nondistended. Extremities: Normal skin color and turgor. Neurological: Patient is lethargic, but is alert and oriented. Results - Labs 06/16/23 06:30 06/16/23 06:30 Abnormal Lab Results - Last 24 Hours (Table) 06/15/23 06/15/23 06/15/23 Range/Units 11:47 17:44 20:36 RBC (4.10-5.20) X 10*6/uL Hgb (12.0-15.0) g/dL Hct (37.2-46.3) % MCH (27.0-32.0) pg MCHC (32.0-37.0) g/dL RDW (11.5-14.5) % MPV (9.5-12.2) FL Immature Gran # (0.00-0.04) X 10*3/uL Eosinophils # (0.04-0.35) X 10*3/uL ESR 85 H (0-30) mm/Hr Sodium (135-145) mmol/L Creatinine (0.6-1.5) mg/dL BUN/Creatinine Ratio (12.00-20.00) Ratio POC Glucose (mg/dL) 166 H 223 H (70-110) mg/dL Calcium (8.7-10.3) mg/dL AST (13-35) U/L ALT (8-44) U/L Alkaline Phosphatase (41-126) U/L Total Protein (6.2-8.2) g/dL Albumin (3.8-4.9) g/dL Globulin (1.6-3.3) g/dL Albumin/Globulin Ratio (1.60-3.17) Ratio 06/16/23 06/16/23 06/16/23 Range/Units 06:30 06:30 11:53 RBC 2.92 L (4.10-5.20) X 10*6/uL Hgb 7.8 L (12.0-15.0) g/dL Hct 25.7 L (37.2-46.3) % MCH 26.7 L (27.0-32.0) pg MCHC 30.4 L (32.0-37.0) g/dL RDW 17.9 H (11.5-14.5) % MPV 9.4 L (9.5-12.2) FL Immature Gran # 0.09 H (0.00-0.04) X 10*3/uL Eosinophils # 0.02 L (0.04-0.35) X 10*3/uL ESR (0-30) mm/Hr Sodium 133 L (135-145) mmol/L Creatinine 0.3 L (0.6-1.5) mg/dL BUN/Creatinine Ratio 43.67 H (12.00-20.00) Ratio POC Glucose (mg/dL) 174 H (70-110) mg/dL Calcium 7.3 L (8.7-10.3) mg/dL AST 6 L (13-35) U/L ALT <5 L (8-44) U/L Alkaline Phosphatase 135 H (41-126) U/L Total Protein 6.0 L (6.2-8.2) g/dL Albumin 1.7 L (3.8-4.9) g/dL Globulin 4.3 H (1.6-3.3) g/dL Albumin/Globulin Ratio 0.40 L (1.60-3.17) Ratio Diabetes panel 06/16/23 Range/Units 06:30 Sodium 133 L (135-145) mmol/L Potassium 4.5 (3.5-5.5) mmol/L Chloride 101 (96-109) mmol/L Carbon Dioxide 25.3 (21.6-31.8) mmol/L BUN 13.1 (9.0-27.0) mg/dL Creatinine 0.3 L (0.6-1.5) mg/dL Glucose 90 (70-110) mg/dL Calcium 7.3 L (8.7-10.3) mg/dL AST 6 L (13-35) U/L ALT <5 L (8-44) U/L Alkaline Phosphatase 135 H (41-126) U/L Total Protein 6.0 L (6.2-8.2) g/dL Albumin 1.7 L (3.8-4.9) g/dL Calcium panel 06/16/23 Range/Units 06:30 Calcium 7.3 L (8.7-10.3) mg/dL Albumin 1.7 L (3.8-4.9) g/dL Pituitary panel 06/16/23 Range/Units 06:30 Sodium 133 L (135-145) mmol/L Potassium 4.5 (3.5-5.5) mmol/L Chloride 101 (96-109) mmol/L Carbon Dioxide 25.3 (21.6-31.8) mmol/L BUN 13.1 (9.0-27.0) mg/dL Creatinine 0.3 L (0.6-1.5) mg/dL Glucose 90 (70-110) mg/dL Calcium 7.3 L (8.7-10.3) mg/dL Adrenal panel 06/16/23 Range/Units 06:30 Sodium 133 L (135-145) mmol/L Potassium 4.5 (3.5-5.5) mmol/L Chloride 101 (96-109) mmol/L Carbon Dioxide 25.3 (21.6-31.8) mmol/L BUN 13.1 (9.0-27.0) mg/dL Creatinine 0.3 L (0.6-1.5) mg/dL Glucose 90 (70-110) mg/dL Calcium 7.3 L (8.7-10.3) mg/dL Total Bilirubin 0.3 (0.3-1.2) mg/dL AST 6 L (13-35) U/L ALT <5 L (8-44) U/L Alkaline Phosphatase 135 H (41-126) U/L Total Protein 6.0 L (6.2-8.2) g/dL Albumin 1.7 L (3.8-4.9) g/dL Assessment and Plan Assessment: 1. Bacteremia 2. Chronic decubitus ulcer and right trochanteric ulcer 3. History of right subclavian Port-A-Cath Plan: 1. Keep patient nothing by mouth after midnight 2. Will plan for portogram and possible PICC line placement if needed tomorrow Thank you for this consultation, we will continue to follow. The impression and plan of care has been dictated as directed. I performed a history and examination of this patient, discussed the same with the dictator. I agree with the dictator's note ,documented as a scribe. Any additional findings or plans will be noted.
[2023-06-16 17:31] LABS: Glucose,Whole Blood 142 mg/dL (70-110)
[2023-06-16 20:21] LABS: Glucose,Whole Blood 159 mg/dL (70-110)
[2023-06-17] MEDS: MEROPENEM 1 GM in SODIUM CHLORIDE 0.9% 100 ML IVPB SCH ×4 (00:48→23:13)
[2023-06-17 07:36] LABS: Glucose,Whole Blood 123 mg/dL (70-110)
[2023-06-17] MEDS: FERROUS SULFATE 325 MG TAB PO SCH (08:12)
[2023-06-17] MEDS: PANTOPRAZOLE 40 MG/10 ML VIAL IV SCH (08:12)
[2023-06-17] MEDS: THIAMINE 100 MG TAB PO SCH (08:13)
[2023-06-17] MEDS: MAG HYDROX/AL HYDROX/SIMETH 30 ML, diphenhydrAMINE ELIXIR 75 MG, LIDOCAINE VISCOUS 2% 3... PO SCH ×9 (08:13→17:55)
[2023-06-17] MEDS: CALCIUM CARBONATE 500 MG CHEWABLE PO SCH (08:13)
[2023-06-17] MEDS: FOLIC ACID 1 MG TAB PO SCH (08:13)
[2023-06-17] MEDS: NYSTATIN 100,000 UNIT/ML SUSP 500,000 UNIT/5 ML CUP PO SCH ×4 (08:13→23:12)
[2023-06-17] MEDS: MAGNESIUM OXIDE 400 MG TAB PO SCH (08:13)
[2023-06-17] MEDS: allopurinoL 300 MG TAB PO SCH (08:13)
[2023-06-17] MEDS: MORPHINE SULFATE 4 MG/ML SYRINGE IV PRN ×3 (08:20→20:47)
[2023-06-17] MEDS: HYDROcodone/APAP 5-325MG 1 EACH TAB PO PRN ×2 (10:59→23:08)
[2023-06-17 11:24] LABS: Glucose,Whole Blood 139 mg/dL (70-110)
[2023-06-17 12:39] VITALS: RESP 16
--- NOTE | 2023-06-17 12:47 | P.PN ---
Subjective Progress Note Date: 06/17/23 patient is a 57-year-old lady with past medical history significant for asthma,diabetes mellitus, insulin-dependent, GERD, musculoskeletal disorder, neurologic disorder, and sleep apnea with CPAP, spina bifida and hydrocephalus with Sapphire I malformation history, recurrent UTIs with ESBL along with MRSA of her buttock and leg regions presented to the ER for evaluation for sacral decub. Patient is wheelchair-bound. [facility] Nursing staff at the facility were concerned about worsening sacral decub and right trochanteric pressure ulcer. Patient has been having complaining of lethargy and weakness. There was no clear fever or chills. No complaint of nausea, abdominal pain. Initial lab work done in the ER showed WBC 26.4, hemoglobin 7.3, platelet count 462, sodium 134, potassium 5.2 BUS 79, creatinine 3.04 glucose 166 phosphorus 5.5 troponin 0.012 proBNP 3850 UA done showed nitrite negative, large amount of urine blood, leukocyte esterase moderate amount, urine WBC 182 EKG done in the ER showed heart rate of , no ST segment elevation or depression seen, no T-wave inversions seen. CT abdomen pelvis done showed no acute abnormality, distended gallbladder seen. Deep sacral decub and right decubitus ulcer with Chronic appearing underlying bony changes likely related to chronic osteomyelitis. Mild/moderate degenerative changes of the visualized spine at T10T . Patient admitted to internal medicine service 06/11. Patient seen and examined. Family the bedside. Patient underwent b edside debridement by general surgery. States pain is better controlled compared to yesterday. Vital signs stable 06/12. Patient seen and examined. Hemoglobin this morning is 6.8, will transfuse 1 unit of packed red blood cell. Renal functions have improved. Complaining of difficulty swallowing. States she has poor appetite 06/13. Patient seen and examined lab work done this morning showed WBC 10.3, hemoglobin 8.8, sodium 137, potassium 4.6, BUN 37, creatinine 0.53. Mother at the bedside, states she is doing much better. Denies any acute issues. States appetite is improved 06/14. Patient seen and examined. Patient has been afebrile. Appetite is slowly increasing. Denies any nausea or vomiting. Vital signs stable 06/15. Patient seen and examined . Laying comfortably in the bed. Tolerating diet. States she feels better 06/16. Patient seen and examined. Hemoglobin this morning is 7.8, WBC 8.8, sodium 1:30, potassium 4.5. Surgery evaluated the patient's wounds, recommended wound care, recommended no further debridement. 06/17. Patient seen and examined. Vascular surgery consulted for evaluation for right Port-A-Cath if it is functioning if not they will put in a PICC line. States she feels much better. Denies any acute issues overnight. REVIEW OF SYSTEMS: CONSTITUTIONAL: No fever, no malaise,. CARDIOVASCULAR: No chest pain, no palpitations, no syncope. PULMONARY: No shortness of breath, no cough, GASTROINTESTINAL: No diarrhea, no nausea, no vomiting, no abdominal pain. NEUROLOGICAL: No headaches, no weakness, Assessment and plan GENERAL: The patient is alert and oriented x3, not in any acute distress. Chronically ill-looking HEENT: Pupils are round and equally reacting to light. EOMI. No scleral icterus. No conjunctival pallor. Normocephalic, atraumatic. No pharyngeal erythema. No thyromegaly. CARDIOVASCULAR: S1 and S2 present. No murmurs, rubs, or gallops. PULMONARY: Chest is clear to auscultation, no wheezing or crackles. ABDOMEN: Soft, nontender, nondistended, normoactive bowel sounds. No palpable organomegaly. Urostomy seen MUSCULOSKELETAL: Atrophy of lower extremities seen EXTREMITIES: No cyanosis, clubbing, or pedal edema. NEUROLOGICAL: Moving upper extremities. Patient has atrophy of lower extremities SKIN: Stage IV sacral decub and stage IV pressure ulcer to right torchanter Assessment and plan Bacteremia Sepsis present on admission Stage IV sacral decub stage IV pressure ulcer to right torchanter Sacral decub and right decubitus ulcer with chronic underlying bony changes likely related to chronic osteomyelitis Hyponatremia Acute on chronic kidney disease Anemia Acute urinary tract infection, present on admission with failed outpatient therapy Past history of MRSA and ESBL of the wounds recurrent urinary tract infections Asthma history, not in exacerbation Diabetes mellitus, type II, insulin-dependent Gastroesophageal reflux disease Musculoskeletal disorder History of spina bifida with hydrocephalus Sapphire I malformation Chronic renal disease Sleep apnea with a CPAP Monitor vital signs Monitor CBC Monitor CMP Continue telemetry monitoring Follow-up on blood cultures Patient underwent Excisional debridement right trochanteric decubitus ulcer on 06/11 Follow-up on wound cultures DC fluids Continue IV meropenem ID following Nephrology following Gen. surgery following, recommended wound care, recommended no further debridement. Vascular surgery consulted for evaluation for right Port-A-Cath if it is functioning if not they will put in a PICC line. Labs and medication were reviewed.. Continue same treatment. Continue with symptomatic treatment. Resume home medication. Monitor labs and vitals. DVT and GI prophylaxis. Further recommendations as per clinical course of the patient Dictation was produced using [employer] dictation software. please excuse any grammatical, word or spelling errors. Objective - Vital Signs Vital signs: Vital Signs Temp 98.8 F 06/17/23 11:20 Pulse 99 06/17/23 11:20 Resp 16 06/17/23 11:20 BP 106/66 06/17/23 11:20 Pulse Ox 95 06/17/23 11:20 FiO2 Intake & Output 06/16/23 06/17/23 06/17/23 18:59 06:59 18:59 Intake Total 590 400 Output Total 1100 600 Balance -510 -200 Intake: Oral 590 400 Output: Urine 1100 600 Other: Voiding Method Self-Catheterization Self-Catheterization Self-Catheterization Ileal Conduit (Right) Ileal Conduit (Right) Ileal Conduit (Right) # Bowel Movements 1 1 - Labs CBC & Chem 7: 06/16/23 06:30 06/16/23 06:30 Labs: Abnormal Lab Results - Last 24 Hours (Table) 06/16/23 06/16/23 06/17/23 Range/Units 17:30 20:20 07:14 POC Glucose (mg/dL) 142 H 159 H 123 H (70-110) mg/dL 06/17/23 Range/Units 11:22 POC Glucose (mg/dL) 139 H (70-110) mg/dL Microbiology - Last 24 Hours (Table) 06/15/23 08:43 Blood Culture - Preliminary Blood
[2023-06-17] MEDS ORDERED: ALTEPLASE 2 MG VIAL (CATHFLO) MISCELLANE ONE (13:34)
[2023-06-17] MEDS ORDERED: IOPAMIDOL-370 100ML BTL INJ ONE (13:40)
--- NOTE | 2023-06-17 13:45 | P.OP ---
Date of Procedure: 06/17/23 Description of Procedure: Preoperative Diagnosis: Need for long-term IV antibiotic access., Previous port Postoperative Diagnosis: Same. Procedure(s) Performed: Port accessed with Riggs needle Injection of contrast and fluoroscopic evaluation, portogram Anesthesia: local 1% lidocaine plain Surgeon: Axel Estimated Blood Loss (ml): 0 IV fluids (ml): 0 Urine output (ml): 0 Pathology: none sent Condition: stable Disposition: no change Indications for Procedure: Patient requires long-term IV antibiotics as an outpatient she has history of reported but is uncertain if this functional. Description of Procedure: Patient was brought to the special procedure suite. The port site was sterilely prepped and draped in usual manner. The port was accessed. Initial aspiration did reveal minimal blood return. The port was then instilled with contrast and portogram was performed showing a patent port with potential areas of fibrin sheath and a easy flush of contrast into the superior vena cava without incident. The port itself appears to be functional although may not be fully utilizable for lab draws. Will place 2 mg of TPA at this time for attempts at improving the fibrin sheath. May utilize for IV antibiotics. Patient tolerated procedure well and was returned to their room in satisfactory and stable condition.
--- NOTE | 2023-06-17 16:20 | P.PN ---
Subjective Progress Note Date: 06/16/23 Principal diagnosis: Reason for follow-up is ESBL bacteremia UTI and infected pressure ulcer Patient is a 57-year-old female with a past medical history significant for diabetes mellitus reflux spina bifid hydrocephalus bedbound state currently alf resident, patient have chronic nonhealing wound to the sacral and the right hip area sent to the ER for concerning for possible infection did have a positive blood culture with ESBL E. coli, patient did have right trochanteric pressure ulcer debridement at the bedside by surgery on 06/11/2023 On today's evaluation that is 06/16/2023 the patient continues to be afebrile the patient is breathing comfortably on room air denies any chest pain shortness of breath or cough no nausea vomiting abdominal pain or diarrhea still complaining of some lower back pain. The patient white count normal at 8.81, creatinine 0.3 Objective - Vital Signs Vital signs: Vital Signs Temp 99.3 F 06/16/23 13:42 Pulse 110 H 06/16/23 13:42 Resp 16 06/16/23 13:42 BP 104/66 06/16/23 13:42 Pulse Ox 96 06/16/23 13:42 FiO2 Intake & Output 06/15/23 06/16/23 06/16/23 18:59 06:59 18:59 Intake Total 240 Output Total 0480 731 2915 Balance -1800 660 -1100 Weight 140 kg Intake: Oral 240 Output: Urine 3362 312 3182 Other: Voiding Method Ileal Conduit (Right) Ileal Conduit (Right) Self-C atheterization Ileal Conduit (Right) # Bowel Movements 1 1 - Exam GENERAL DESCRIPTION: Middle-aged female lying in bed in no distress RESPIRATORY SYSTEM: Unlabored breathing , decreased breath sounds at bases HEART: S1 S2 regular rate and rhythm , ABDOMEN: Soft , no tenderness EXTREMITIES: No edema feet - Labs CBC & Chem 7: 06/16/23 06:30 06/16/23 06:30 Labs: Abnormal Lab Results - Last 24 Hours (Table) 06/15/23 06/15/23 06/16/23 Range/Units 17:44 20:36 06:30 RBC 2.92 L (4.10-5.20) X 10*6/uL Hgb 7.8 L (12.0-15.0) g/dL Hct 25.7 L (37.2-46.3) % MCH 26.7 L (27.0-32.0) pg MCHC 30.4 L (32.0-37.0) g/dL RDW 17.9 H (11.5-14.5) % MPV 9.4 L (9.5-12.2) FL Immature Gran # 0.09 H (0.00-0.04) X 10*3/uL Eosinophils # 0.02 L (0.04-0.35) X 10*3/uL Sodium (135-145) mmol/L Creatinine (0.6-1.5) mg/dL BUN/Creatinine Ratio (12.00-20.00) Ratio POC Glucose (mg/dL) 166 H 223 H (70-110) mg/dL Calcium (8.7-10.3) mg/dL AST (13-35) U/L ALT (8-44) U/L Alkaline Phosphatase (41-126) U/L Total Protein (6.2-8.2) g/dL Albumin (3.8-4.9) g/dL Globulin (1.6-3.3) g/dL Albumin/Globulin Ratio (1.60-3.17) Ratio 06/16/23 06/16/23 Range/Units 06:30 11:53 RBC (4.10-5.20) X 10*6/uL Hgb (12.0-15.0) g/dL Hct (37.2-46.3) % MCH (27.0-32.0) pg MCHC (32.0-37.0) g/dL RDW (11.5-14.5) % MPV (9.5-12.2) FL Immature Gran # (0.00-0.04) X 10*3/uL Eosinophils # (0.04-0.35) X 10*3/uL Sodium 133 L (135-145) mmol/L Creatinine 0.3 L (0.6-1.5) mg/dL BUN/Creatinine Ratio 43.67 H (12.00-20.00) Ratio POC Glucose (mg/dL) 174 H (70-110) mg/dL Calcium 7.3 L (8.7-10.3) mg/dL AST 6 L (13-35) U/L ALT <5 L (8-44) U/L Alkaline Phosphatase 135 H (41-126) U/L Total Protein 6.0 L (6.2-8.2) g/dL Albumin 1.7 L (3.8-4.9) g/dL Globulin 4.3 H (1.6-3.3) g/dL Albumin/Globulin Ratio 0.40 L (1.60-3.17) Ratio Microbiology - Last 24 Hours (Table) 06/15/23 08:43 Blood Culture - Preliminary Blood Assessment and Plan (1) Bacteremia Current Visit: Yes Status: Acute Code(s): R78.81 - BACTEREMIA SNOMED Code(s): 6694293 (2) Allergy to multiple antibiotics Current Visit: Yes Status: Acute Code(s): Z88.1 - ALLERGY STATUS TO OTHER ANTIBIOTIC AGENTS SNOMED Code(s): 134926438 (3) Pressure injury of sacral region, stage 4 Current Visit: Yes Status: Acute Code(s): L89.154 - PRESSURE ULCER OF SACRAL REGION, STAGE 4 SNOMED Code(s): 73483590022573 (4) Sepsis Current Visit: Yes Status: Acute Code(s): A41.9 - SEPSIS, UNSPECIFIED ORGANISM SNOMED Code(s): 58301491 (5) UTI (urinary tract infection) Current Visit: Yes Status: Acute Code(s): N39.0 - URINARY TRACT INFECTION, SITE NOT SPECIFIED SNOMED Code(s): 20784943 Plan: 1patient was in the hospital with sepsis in this patient who did have a tachycardia hypeotension elevated white count meeting criteria for SIRS/sepsis, source is likely infected sacral pressure ulcer and likely UTI 2-patient did have a positive blood culture with strep and he has been E. coli source likely infected sacral pressure ulcer/UTI 3-renal insufficiency and high risk of nephrotoxicity, Patient did show improvement in her kidney function. 4-patient with multiple antibiotic ALLERGIES that would limit the number of antibiotic safe to use 5patient has been evaluated by general surgery and did have a debridement of the right trochanteric pressure ulcer 6-positive blood culture with coagulase-negative staph concern for possible contamination repeat blood cultures are so fa negative 7vascular surgery has been consulted for evaluation of the right chest wall port which is working patient will not need PICC line and will be able to use port for outpatient IV antibiotic therapy to continue meropenem while inpatient Dictation was produced using [employer] dictation software. please excuse any grammatical, word or spelling errors. Time with Patient: Less than 30
--- NOTE | 2023-06-17 16:23 | P.PN ---
Subjective Progress Note Date: 06/17/23 Principal diagnosis: Reason for follow-up is ESBL bacteremia UTI and infected pressure ulcer Patient is a 57-year-old female with a past medical history significant for diabetes mellitus reflux spina bifid hydrocephalus bedbound state currently [facility] resident, patient have chronic nonhealing wound to the sacral and the right hip area sent to the ER for concerning for possible infection did have a positive blood culture with ESBL E. coli, patient did have right trochanteric pressure ulcer debridement at the bedside by surgery on 06/11/2023 On today's evaluation that is 06/17/2023 the patient remains to be afebrile the patient is breathing comfortably on room air, the patient denies any chest pain shortness of breath or cough no nausea vomiting abdominal pain or diarrhea denies any worsening lower back pain. The patient white count normal at 8.81, creatinine 0.3 as of 06/16/2023 blood culture repeat 1226 has been negative Objective - Vital Signs Vital signs: Vital Signs Temp 98.8 F 06/17/23 11:20 Pulse 99 06/17/23 11:20 Resp 16 06/17/23 11:20 BP 106/66 06/17/23 11:20 Pulse Ox 95 06/17/23 11:20 FiO2 Intake & Output 06/16/23 06/17/23 06/17/23 18:59 06:59 18:59 Intake Total 590 400 Output Total 1100 600 Balance -510 -200 Intake: Oral 590 400 Output: Urine 1100 600 Other: Voiding Method Self-Catheterization Self-Catheterization Self-Catheterization Ileal Conduit (Right) Ileal Conduit (Right) Ileal Conduit (Right) # Bowel Movements 1 1 - Exam GENERAL DESCRIPTION: Middle-aged female lying in bed in no distress RESPIRATORY SYSTEM: Unlabored breathing , decreased breath sounds at bases HEART: S1 S2 regular rate and rhythm , ABDOMEN: Soft , no tenderness EXTREMITIES: No edema feet - Labs CBC & Chem 7: 06/16/23 06:30 06/16/23 06:30 Labs: Abnormal Lab Results - Last 24 Hours (Table) 06/16/23 06/16/23 06/17/23 Range/Units 17:30 20:20 07:14 POC Glucose (mg/dL) 142 H 159 H 123 H (70-110) mg/dL 06/17/23 Range/Units 11:22 POC Glucose (mg/dL) 139 H (70-110) mg/dL Microbiology - Last 24 Hours (Table) 06/15/23 08:43 Blood Culture - Preliminary Blood Assessment and Plan (1) Bacteremia Current Visit: Yes Status: Acute Code(s): R78.81 - BACTEREMIA SNOMED Code(s): 5845186 (2) Allergy to multiple antibiotics Current Visit: Yes Status: Acute Code(s): Z88.1 - ALLERGY STATUS TO OTHER ANTIBIOTIC AGENTS SNOMED Code(s): 334156259 (3) Pressure injury of sacral region, stage 4 Current Visit: Yes Status: Acute Code(s): L89.154 - PRESSURE ULCER OF SACRAL REGION, STAGE 4 SNOMED Code(s): 62080238006871 (4) Sepsis Current Visit: Yes Status: Acute Code(s): A41.9 - SEPSIS, UNSPECIFIED ORGANISM SNOMED Code(s): 61479121 (5) UTI (urinary tract infection) Current Visit: Yes Status: Acute Code(s): N39.0 - URINARY TRACT INFECTION, SITE NOT SPECIFIED SNOMED Code(s): 26009923 Plan: 1patient was in the hospital with sepsis in this patient who did have a tachycardia hypeotension elevated white count meeting criteria for SIRS/sepsis, source is likely infected sacral pressure ulcer and likely UTI 2-patient did have a positive blood culture with strep and he has been E. coli source likely infected sacral pressure ulcer/UTI 3-renal insufficiency and high risk of nephrotoxicity, Patient did show improvement in her kidney function. 4-patient with multiple antibiotic ALLERGIES that would limit the number of antibiotic safe to use 5patient has been evaluated by general surgery and did have a debridement of the right trochanteric pressure ulcer 6-positive blood culture with coagulase-negative staph concern for possible contamination repeat blood cultures are so fa negative 7vascular surgery has evaluated right chest wall port which is functional as per discussion with Dr. Reyna no need for PICC line patient on meropenem that will be switched to Invanz 1 g daily on discharge to finish 6-week course of therapy and close outpatient follow-up Dictation was produced using [employer] dictation software. please excuse any grammatical, word or spelling errors. Time with Patient: Less than 30
[2023-06-17 17:10] LABS: Glucose,Whole Blood 190 mg/dL (70-110)
[2023-06-17 20:11] LABS: Glucose,Whole Blood 182 mg/dL (70-110)
[2023-06-18] MEDS: MORPHINE SULFATE 4 MG/ML SYRINGE IV PRN (01:40)
[2023-06-18 07:20] LABS: Glucose,Whole Blood 105 mg/dL (70-110)
[2023-06-18 07:48] VITALS: BP 107/70; PULSE 87; TEMP 98.5
[2023-06-18] MEDS: MAG HYDROX/AL HYDROX/SIMETH 30 ML, diphenhydrAMINE ELIXIR 75 MG, LIDOCAINE VISCOUS 2% 3... PO SCH ×6 (08:30→12:50)
[2023-06-18] MEDS: MEROPENEM 1 GM in SODIUM CHLORIDE 0.9% 100 ML IVPB SCH (08:32)
[2023-06-18 08:39] LABS: HCT 25.6 % (37.2-46.3); HGB 7.7 g/dL (12.0-15.0); MCH 27.3 pg (27.0-32.0); MCHC 30.1 g/dL (32.0-37.0); MCV 90.8 FL (80.0-97.0); Mean Platelet Volume 10.1 FL (9.5-12.2); NRBC Per 100 WBC 0 X 10*3/uL (0.00-0.01); Platelet Count 371 X 10*3/uL (140-440); RBC 2.82 X 10*6/uL (4.10-5.20); RDW 17.4 % (11.5-14.5); WBC 8.25 X 10*3/uL (4.50-10.00)
[2023-06-18] MEDS: CALCIUM CARBONATE 500 MG CHEWABLE PO SCH (08:39)
[2023-06-18] MEDS: MAGNESIUM OXIDE 400 MG TAB PO SCH (08:39)
[2023-06-18] MEDS: PANTOPRAZOLE 40 MG/10 ML VIAL IV SCH (08:39)
[2023-06-18] MEDS: allopurinoL 300 MG TAB PO SCH (08:39)
[2023-06-18] MEDS: HYDROcodone/APAP 5-325MG 1 EACH TAB PO PRN (08:39)
[2023-06-18] MEDS: FERROUS SULFATE 325 MG TAB PO SCH (08:39)
[2023-06-18] MEDS: THIAMINE 100 MG TAB PO SCH (08:39)
[2023-06-18] MEDS: FOLIC ACID 1 MG TAB PO SCH (08:39)
[2023-06-18 08:52] LABS: ALT <5 U/L (8-44); AST 6 U/L (13-35); Albumin 1.7 g/dL (3.8-4.9); Alkaline Phosphatase 114 U/L (41-126); Calcium 7.3 mg/dL (8.7-10.3); Carbon Dioxide 25.1 mmol/L (21.6-31.8); Chloride 102 mmol/L (96-109); Globulin 4.2 g/dL (1.6-3.3); Glucose 109 mg/dL (70-110); Potassium 4.6 mmol/L (3.5-5.5); Sodium 133 mmol/L (135-145); Total Bilirubin 0.2 mg/dL (0.3-1.2); Total Protein 5.9 g/dL (6.2-8.2)
[2023-06-18] MEDS: NYSTATIN 100,000 UNIT/ML SUSP 500,000 UNIT/5 ML CUP PO SCH ×2 (09:48→14:41)
[2023-06-18 12:24] LABS: Glucose,Whole Blood 174 mg/dL (70-110)
--- NOTE | 2023-06-18 12:35 | P.DS ---
Providers Date of admission: 06/09/23 20:38 Expected date of discharge: 06/18/23 Attending physician: Brigido Armenta Consults: 06/10/23 09:20 Consult Physician Routine Consulting Provider: Jania Polo Consult Reason/Comments: bacteremia Do you want consulting provider notified?: Yes 06/10/23 10:14 Consult Physician Routine Consulting Provider: Vicki Dubon Consult Reason/Comments: Acute on chronic kidney disease Do you want consulting provider notified?: Yes 06/16/23 14:07 Consult Physician Routine Consulting Provider: Janene Reyna Consult Reason/Comments: IR CVA device check with fluoro. Venogram Do you want consulting provider notified?: Yes Primary care physician: [facility] Hospital Course: Discharge diagnoses; Bacteremia Sepsis present on admission Stage IV sacral decub stage IV pressure ulcer to right torchanter Sacral decub and right decubitus ulcer with chronic underlying bony changes likely related to chronic osteomyelitis Hyponatremia Acute on chronic kidney disease Anemia Acute urinary tract infection, present on admission with failed outpatient therapy Past history of MRSA and ESBL of the wounds recurrent urinary tract infections Asthma history, not in exacerbation Diabetes mellitus, type II, insulin-dependent Gastroesophageal reflux disease Musculoskeletal disorder History of spina bifida with hydrocephalus Sapphire I malformation Chronic renal disease Sleep apnea with a CPAP Hospital course; patient is a 57-year-old lady with past medical history significant for asthma,diabetes mellitus, insulin-dependent, GERD, musculoskeletal disorder, neurologic disorder, and sleep apnea with CPAP, spina bifida and hydrocephalus with [place] I malformation history, recurrent UTIs with ESBL along with MRSA of her buttock and leg regions presented to the ER for evaluation for sacral decub. Patient is wheelchair-bound. Patient is a resident of care home facility. Nursing staff at the facility were concerned about worsening sacral decub and right trochanteric pressure ulcer. Patient has been having complaining of lethargy and weakness. There was no clear fever or chills. No complaint of nausea, abdominal pain. Initial lab work done in the ER showed WBC 26.4, hemoglobin 7.3, platelet count 462, sodium 134, potassium 5.2 BUS 79, creatinine 3.04 glucose 166 phosphorus 5.5 troponin 0.012 proBNP 3850 UA done showed nitrite negative, large amount of urine blood, leukocyte esterase moderate amount, urine WBC 182 EKG done in the ER showed heart rate of , no ST segment elevation or depression seen, no T-wave inversions seen. CT abdomen pelvis done showed no acute abnormality, distended gallbladder seen. Deep sacral decub and right decubitus ulcer with Chronic appearing underlying bony changes likely related to chronic osteomyelitis. Mild/moderate degene rative changes of the visualized spine at T10T . Patient admitted to internal medicine service 06/11. Patient seen and examined. Family the bedside. Patient underwent bedside debridement by general surgery. States pain is better controlled compared to yesterday. Vital signs stable 06/12. Patient seen and examined. Hemoglobin this morning is 6.8, will transfuse 1 unit of packed red blood cell. Renal functions have improved. Complaining of difficulty swallowing. States she has poor appetite 06/13. Patient seen and examined lab work done this morning showed WBC 10.3, hemoglobin 8.8, sodium 137, potassium 4.6, BUN 37, creatinine 0.53. Mother at the bedside, states she is doing much better. Denies any acute issues. States appetite is improved 06/14. Patient seen and examined. Patient has been afebrile. Appetite is slowly increasing. Denies any nausea or vomiting. Vital signs stable 06/15. Patient seen and examined . Laying comfortably in the bed. Tolerating diet. States she feels better 06/16. Patient seen and examined. Hemoglobin this morning is 7.8, WBC 8.8, sodium 1:30, potassium 4.5. Surgery evaluated the patient's wounds, recommended wound care, recommended no further debridement. 06/17. Patient seen and examined. Vascular surgery consulted for evaluation for right Port-A-Cath if it is functioning if not they will put in a PICC line. States she feels much better. Denies any acute issues overnight. 06/18. Patient seen and examined. ID cleared the patient for discharge on IV ertapenem to complete 6 week course of antibiotics. PHYSICAL EXAMINATION: GENERAL: The patient is alert and oriented x3, not in any acute distress. Chronically ill-looking HEENT: Pupils are round and equally reacting to light. EOMI. No scleral icterus. No conjunctival pallor. Normocephalic, atraumatic. No pharyngeal erythema. No thyromegaly. CARDIOVASCULAR: S1 and S2 present. No murmurs, rubs, or gallops. PULMONARY: Chest is clear to auscultation, no wheezing or crackles. ABDOMEN: Soft, nontender, nondistended, normoactive bowel sounds. No palpable organomegaly. Urostomy seen MUSCULOSKELETAL: Atrophy of lower extremities seen EXTREMITIES: No cyanosis, clubbing, or pedal edema. NEUROLOGICAL: Moving upper extremities. Patient has atrophy of lower extremities SKIN: Stage IV sacral decub and stage IV pressure ulcer to right torchaer Dictation was produced using [employer] dictation software. please excuse any grammatical, word or spelling errors. Patient Condition at Discharge: Good Plan - Discharge Summary Discharge Rx Participant: No New Discharge Prescriptions: New Lidocaine Viscous 2% [Xylocaine Viscous] 30 ml PO AC-TID #210 ml Continue allopurinoL [Zyloprim] 300 mg PO DAILY Calcium Carbonate 500 mg PO DAILY Cholestyramine (with Sugar) [Questran Packet] 4 gm PO TID PRN PRN Reason: BULK STOOL Ferrous Sulfate [Iron (65 MG Elemental)] 325 mg PO DAILY Folic Acid 1 mg PO DAILY Menthol [Icy Hot] 2 patch TRANSDERM DAILY Magnesium Oxide [Mag-Ox] 400 mg PO DAILY Torsemide [Demadex] 20 mg PO BID 30 Days #60 tab hydrOXYzine HCL [Atarax] 25 mg PO Q8HR PRN PRN Reason: Itching Ibuprofen [Motrin Ib] 400 mg PO Q6H PRN PRN Reason: Fever Lidocaine Viscous 2% [Xylocaine Viscous] 5 ml MUCOUS MEM Q4H PRN PRN Reason: Pain Thiamine [Vitamin B-1] 100 mg PO DAILY HYDROcodone/APAP 5-325MG [[place] 5-325] 1 tab PO Q4H PRN 3 Days #18 tab PRN Reason: Pain Discharge Medication List allopurinoL [Zyloprim] 300 mg PO DAILY 10/04/14 [History] Torsemide [Demadex] 20 mg PO BID 30 Days #60 tab 04/30/22 [Rx] Calcium Carbonate 500 mg PO DAILY 06/09/23 [History] Cholestyramine (with Sugar) [Questran Packet] 4 gm PO TID PRN 06/09/23 [History] Ferrous Sulfate [Iron (65 MG Elemental)] 325 mg PO DAILY 06/09/23 [History] Folic Acid 1 mg PO DAILY 06/09/23 [History] Ibuprofen [Motrin Ib] 400 mg PO Q6H PRN 06/09/23 [History] Lidocaine Viscous 2% [Xylocaine Viscous] 5 ml MUCOUS MEM Q4H PRN 06/09/23 [History] Magnesium Oxide [Mag-Ox] 400 mg PO DAILY 06/09/23 [History] Menthol [Icy Hot] 2 patch TRANSDERM DAILY 06/09/23 [History] Thiamine [Vitamin B-1] 100 mg PO DAILY 06/09/23 [History] hydrOXYzine HCL [Atarax] 25 mg PO Q8HR PRN 06/09/23 [History] HYDROcodone/APAP 5-325MG [[place] 5-325] 1 tab PO Q4H PRN 3 Days #18 tab 06/18/23 [Rx] Lidocaine Viscous 2% [Xylocaine Viscous] 30 ml PO AC-TID #210 ml 06/18/23 [Rx] Follow up Appointment(s)/Referral(s): Barrington [facility] DO [Primary Care Provider] - 07/01/23 10:45 am Jania Polo MD [STAFF PHYSICIAN] - 1 Week Discharge Disposition: TRANSFER TO SNF/ECF
[2023-06-18] MEDS ORDERED: ERTAPENEM 1 GM in SODIUM CHLORIDE 0.9% 50 ML IVPB SCH (16:00)
--- NOTE | 2023-06-25 14:58 | P.PN ---
Subjective Progress Note Date: 06/18/23 Principal diagnosis: Reason for follow-up is ESBL bacteremia UTI and infected pressure ulcer Patient is a 57-year-old female with a past medical history significant for diabetes mellitus reflux spina bifid hydrocephalus bedbound state currently group home resident, patient have chronic nonhealing wound to the sacral and the right hip area sent to the ER for concerning for possible infection did have a positive blood culture with ESBL E. coli, patient did have right trochanteric pressure ulcer debridement at the bedside by surgery on 06/11/2023 On today's evaluation that is 06/18/2023 the patient continues to be afebrile, patient is breathing comfortably on room air without need for supplemental oxygen patient denies chest pain shortness of breath or cough no nausea vomiting no abdominal pain and no diarrhea has been reported. Patient did have vital of 8.25 creatinine 0.4 blood culture repeat has been negative Objective - Vital Signs Vital signs: Vital Signs Temp 98.5 F 06/18/23 07:28 Pulse 87 06/18/23 07:28 Resp 16 06/18/23 08:00 BP 107/70 06/18/23 07:28 Pulse Ox 95 06/18/23 07:28 FiO2 Intake & Output 06/17/23 06/18/23 06/18/23 18:59 06:59 18:59 Intake Total 1390 Output Total 700 1000 Balance -700 390 Weight 140 kg Intake: Oral 1390 Output: Urine 700 1000 Other: Voiding Method Self-Catheterization Self-Catheterization Self-Catheterization Ileal Conduit (Right) Ileal Conduit (Right) Ileal Conduit (Right) - Exam GENERAL DESCRIPTION: Middle-aged female lying in bed in no distress RESPIRATORY SYSTEM: Unlabored breathing , decreased breath sounds at bases HEART: S1 S2 regular rate and rhythm , ABDOMEN: Soft , no tenderness EXTREMITIES: No edema feet - Labs CBC & Chem 7: 06/18/23 06:01 06/18/23 06:01 Labs: Abnormal Lab Results - Last 24 Hours (Table) 06/17/23 06/17/23 06/18/23 Range/Units 17:09 20:07 06:01 RBC 2.82 L (4.10-5.20) X 10*6/uL Hgb 7.7 L (12.0-15.0) g/dL Hct 25.6 L (37.2-46.3) % MCHC 30.1 L (32.0-37.0) g/dL RDW 17.4 H (11.5-14.5) % Sodium (135-145) mmol/L Creatinine (0.6-1.5) mg/dL BUN/Creatinine Ratio (12.00-20.00) Ratio POC Glucose (mg/dL) 190 H 182 H (70-110) mg/dL Calcium (8.7-10.3) mg/dL Total Bilirubin (0.3-1.2) mg/dL AST (13-35) U/L ALT (8-44) U/L Total Protein (6.2-8.2) g/dL Albumin (3.8-4.9) g/dL Globulin (1.6-3.3) g/dL Albumin/Globulin Ratio (1.60-3.17) Ratio 06/18/23 06/18/23 Range/Units 06:01 12:16 RBC (4.10-5.20) X 10*6/uL Hgb (12.0-15.0) g/dL Hct (37.2-46.3) % MCHC (32.0-37.0) g/dL RDW (11.5-14.5) % Sodium 133 L (135-145) mmol/L Creatinine 0.4 L (0.6-1.5) mg/dL BUN/Creatinine Ratio 37.50 H (12.00-20.00) Ratio POC Glucose (mg/dL) 174 H (70-110) mg/dL Calcium 7.3 L (8.7-10.3) mg/dL Total Bilirubin 0.2 L (0.3-1.2) mg/dL AST 6 L (13-35) U/L ALT <5 L (8-44) U/L Total Protein 5.9 L (6.2-8.2) g/dL Albumin 1.7 L (3.8-4.9) g/dL Globulin 4.2 H (1.6-3.3) g/dL Albumin/Globulin Ratio 0.40 L (1.60-3.17) Ratio Microbiology - Last 24 Hours (Table) 06/15/23 08:43 Blood Culture - Preliminary Blood Assessment and Plan (1) Bacteremia Status: Acute Code(s): R78.81 - BACTEREMIA SNOMED Code(s): 8064694 (2) Allergy to multiple antibiotics Status: Acute Code(s): Z88.1 - ALLERGY STATUS TO OTHER ANTIBIOTIC AGENTS SNOMED Code(s): 190362137 (3) Pressure injury of sacral region, stage 4 Status: Acute Code(s): L89.154 - PRESSURE ULCER OF SACRAL REGION, STAGE 4 SNOMED Code(s): 56467741277044 (4) Sepsis Status: Acute Code(s): A41.9 - SEPSIS, UNSPECIFIED ORGANISM SNOMED Code(s): 26784336 (5) UTI (urinary tract infection) Status: Acute Code(s): N39.0 - URINARY TRACT INFECTION, SITE NOT SPECIFIED SNOMED Code(s): 32154582 Plan: 1patient was in the hospital with sepsis in this patient who did have a tachycardia hypeotension elevated white count meeting criteria for SIRS/sepsis, source is likely infected sacral pressure ulcer and likely UTI 2-patient did have a positive blood culture with strep and he has been E. coli source likely infected sacral pressure ulcer/UTI 3-renal insufficiency and high risk of nephrotoxicity, Patient did show improvement in her kidney function. 4-patient with multiple antibiotic ALLERGIES that would limit the number of antibiotic safe to use 5patient has been evaluated by general surgery and did have a debridement of the right trochanteric pressure ulcer 6-positive blood culture with coagulase-negative staph concern for possible contamination repeat blood cultures are so far negative 7patient to continue with Invanz 1 g daily for to finish 6-week course of therapy local wound care per the wound care team and close outpatient follow-up weekly monitoring of CRP and sed rate question concern answered Dictation was produced using [employer] dictation software. please excuse any grammatical, word or spelling errors. Time with Patient: Less than 30
--- NOTE | 2023-06-26 12:08 | IR ---
EXAMINATION TYPE: IR cva device check w fluoro DATE OF EXAM: 06/17/2023 FLUOROSCOPY Check function of port, 0.3min fluoro, 0.330Ecfk2. 265 images submitted.
== END 2023-06-18 16:11 | DRG 853 ==
LOC: EC 13:39 → 5NMEDONC 20:38
PROVIDERS: ADMIT Hospitalist; ATTEND Hospitalist
PROC: 0KBQ0ZZ Excision of Right Upper Leg Muscle, Open Approach (ICD-10-PCS; principal; 2023-06-11)
PROC: 05HD33Z Insertion of Infusion Device into Right Cephalic Vein, Percutaneous Approach (ICD-10-PCS; 2023-06-16 18:25)
PROC: 3E04317 Introduction of Other Thrombolytic into Central Vein, Percutaneous Approach (ICD-10-PCS; 2023-06-17)
PROC: B51T1ZZ Fluoroscopy of Portal and Splanchnic Veins using Low Osmolar Contrast (ICD-10-PCS; 2023-06-17)
DX: A40.1 Sepsis due to streptococcus, group B (principal); L89.154 Pressure ulcer of sacral region, stage 4; L89.313 Pressure ulcer of right buttock, stage 3; L89.214 Pressure ulcer of right hip, stage 4; L89.323 Pressure ulcer of left buttock, stage 3; N17.0 Acute kidney failure with tubular necrosis; E87.20 Acidosis, unspecified; E87.1 Hypo-osmolality and hyponatremia; Q05.4 Unspecified spina bifida with hydrocephalus; N39.0 Urinary tract infection, site not specified; M46.28 Osteomyelitis of vertebra, sacral and sacrococcygeal region; E11.22 Type 2 diabetes mellitus with diabetic chronic kidney disease; D64.9 Anemia, unspecified; E11.69 Type 2 diabetes mellitus with other specified complication; Z93.6 Other artificial openings of urinary tract status; N18.9 Chronic kidney disease, unspecified; J45.909 Unspecified asthma, uncomplicated; E86.9 Volume depletion, unspecified; E87.6 Hypokalemia; K21.9 Gastro-esophageal reflux disease without esophagitis; K44.9 Diaphragmatic hernia without obstruction or gangrene; L28.0 Lichen simplex chronicus; G47.30 Sleep apnea, unspecified; M10.9 Gout, unspecified; R13.10 Dysphagia, unspecified; Z79.899 Other long term (current) drug therapy; Z87.440 Personal history of urinary (tract) infections; Z86.19 Personal history of other infectious and parasitic diseases; Z86.14 Personal history of Methicillin resistant Staphylococcus aureus infection; Z98.2 Presence of cerebrospinal fluid drainage device; Z99.3 Dependence on wheelchair; Z74.01 Bed confinement status; Z88.1 Allergy status to other antibiotic agents; Z88.2 Allergy status to sulfonamides; Z88.8 Allergy status to other drugs, medicaments and biological substances
CPT/HCPCS: 36410; 36415; 36598; 74176; 76937; 80048; 80053; 81001; 82607; 82728; 82747; 83036; 83540; 83550; 83605; 83735; 83880; 84100; 84145; 84484; 85025; 85027; 85610; 85652; 85730; 86140; 86850; 86900; 86901; 86920; 87040; 87077; 87086; 87186; 93005; 94760; 96361; 96365; 96366; 96367; 96375; 99285

== ENCOUNTER 2023-09-16 13:37 | Inpatient (IN) | payer MEDICARE, OTHER ==
--- NOTE | 2023-09-16 14:32 | ED ---
Recheck HPI - General Chief Complaint: Recheck/Abnormal Lab/Rx Stated Complaint: ABN labs Time Seen by Provider: 09/16/23 14:09 Source: patient, EMS, RN notes reviewed, old records reviewed Mode of arrival: EMS Limitations: no limitations - History of Present Illness Initial Comments: This is a 58-year-old female to the ER today. Patient presents today for evaluation regards to low hemoglobin. Patient herself has had knowingly hemoglobin being dropped lately and she has bleeding from her sacral decubitus ulcer. MD Complaint: abnormal lab (Low hemoglobin) -: month(s) Returns Today for: Called Because of Abnormal Lab/Test, persistent/worsening pain related to initial visit Symptoms Since Prior Visit: no new symptoms Associated Symptoms: none - Related Data Home Medications Medication Instructions Recorded Confirmed allopurinoL [Zyloprim] 300 mg PO DAILY 10/04/14 09/16/23 Calcium Carbonate 500 mg PO DAILY 06/09/23 09/16/23 Cholestyramine (with Sugar) 4 gm PO TID PRN 06/09/23 09/16/23 [Questran Packet] Lidocaine Viscous 2% [Xylocaine 5 ml PO Q4H PRN 06/09/23 09/16/23 Viscous] Magnesium Oxide [Mag-Ox] 400 mg PO DAILY 06/09/23 09/16/23 Menthol [Icy Hot] 2 patch TRANSDERM DAILY 06/09/23 09/16/23 Thiamine [Vitamin B-1] 100 mg PO DAILY 06/09/23 09/16/23 Ascorbic Acid [Vitamin C] 500 mg PO DAILY 09/16/23 09/16/23 Chlorhexidine Gluconate [Peridex] 15 ml PO BID 09/16/23 09/16/23 Folic Acid 0.4 mg PO BID 09/16/23 09/16/23 Heparin Lock Flush Solution 50 unit IV Q24H PRN 09/16/23 09/16/23 10unit/Ml Heparin Lock Flush Solution 50 units IV QMONTHLY 09/16/23 09/16/23 10unit/Ml Lansoprazole [Prevacid] 15 mg PO DAILY 09/16/23 09/16/23 Levofloxacin [Levaquin] 750 mg PO DAILY@0700 09/16/23 09/16/23 Multivitamins, Thera [Multivitamin 1 tab PO HS 09/16/23 09/16/23 (formulary)] Naloxone HCl 0.4 mg IM ONCE PRN 09/16/23 09/16/23 Naloxone HCl [Narcan] 4 mg NASAL ONCE PRN 09/16/23 09/16/23 Nutritional Juice 4 oz PO W/BRKFST@0700 09/16/23 09/16/23 Saccharomyces Boulardii (Unknown 1 cap PO BID 09/16/23 09/16/23 Strength) Sodium Chloride 0.9 % (Flush) 10 ml IV Q24H PRN 09/16/23 09/16/23 [Aquastat (Flush)] Sodium Chloride 0.9 % (Flush) 10 ml IV QMONTHLY 09/16/23 09/16/23 [Aquastat (Flush)] Torsemide [Demadex] 20 mg PO BID@0700,1600 09/16/23 09/16/23 clindamycin HCL [Cleocin] 600 mg PO QID@05,11,17,23 09/16/23 09/16/23 Previous Rx's Medication Instructions Recorded Famotidine [Pepcid] 20 mg PO BID #30 tablet 09/18/23 Ferrous Sulfate [Iron (65 MG 325 mg PO BID #0 09/18/23 Elemental)] HYDROcodone/APAP 5-325MG [[place] 1 tab PO Q4H PRN 3 Days #18 tab 09/18/23 5-325] Morphine Sulfate ER [Ms Contin] 15 mg PO DAILY@1500 #3 tab 09/18/23 Allergies Allergy/AdvReac Type Severity Reaction Status Date / Time amoxicillin trihydrate Allergy Rash/Hives Verified 09/16/23 16:32 [From Augmentin] banana Allergy Unknown Verified 09/16/23 16:32 chestnut Allergy Unknown Verified 09/16/23 16:32 ciprofloxacin [From Cipro] Allergy Rash/Hives Verified 09/16/23 16:32 ciprofloxacin HCl Allergy Rash/Hives Verified 09/16/23 16:32 [From Cipro] kiwi Allergy Unknown Verified 09/16/23 16:32 Latex, Natural Rubber Allergy Anaphylaxis Verified 09/16/23 16:32 methylprednisolone Allergy Rash/Hives Verified 09/16/23 16:32 [From Solu-Medrol] midazolam Allergy Unknown Verified 09/16/23 16:32 nitrofurantoin Allergy Rash/Hives Verified 09/16/23 16:32 macrocrystalline [From Macrodantin] oxacillin Allergy Unknown Verified 09/16/23 16:32 potassium clavulanate Allergy Rash/Hives Verified 09/16/23 16:32 [From Augmentin] Sulfa (Sulfonamide Allergy Rash/Hives, Verified 09/16/23 16:32 Antibiotics) high blood pressure vancomycin Allergy Anaphylaxis Verified 09/16/23 16:32 Beef Containing Products AdvReac Diarrhea Verified 09/16/23 16:32 [Beef] sucralose AdvReac Diarrhea Verified 09/16/23 16:32 [From Splenda (sucralose)] callagen Allergy Rash/Hives Uncoded 09/16/23 14:01 Review of Systems ROS Statement: Those systems with pertinent positive or pertinent negative responses have been documented in the HPI. ROS Other: All systems not noted in ROS Statement are negative. Past Medical History Past Medical History: Asthma, Diabetes Mellitus, GERD/Reflux, Musculoskeletal Disorder, Neurologic Disorder, Pneumonia, Renal Disease, Sleep Apnea/CPAP/BIPAP Additional Past Medical History / Comment(s): 08-09-15 admitted with cellulitis of external nose. other pst medical hx includes: hx. 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, MRSA Date of last positivie culture/infection: 07/07/21 MRSA 01/07/15 ESBL MDRO Source:: MRSA BUTTOCK, ESBL LEG Past Surgical History: Back Surgery, Bowel Resection, Orthopedic Surgery Additional Past Surgical History / Comment(s): multiple surgeries for hydrocephalus, urostomy x 2, multiple hip,leg, foot surgeries, ankles fused, [facility] shunt, pt stated back sx was to remove spina bifida growth, egd Past Anesthesia/Blood Transfusion Reactions: No Reported Reaction Past Psychological History: No Psychological Hx Reported Smoking Status: Never smoker Past Alcohol Use History: None Reported Past Drug Use History: None Reported - Past Family History Father Family Medical History: Hypertension Additional Family Medical History / Comment(s): gout, heart murmur, rheumatic fever as child, tia Mother Family Medical History: Cancer, Hypertension Additional Family Medical History / Comment(s): interstitial cystitis, breast cancer x2, diet controlled diabetic, hiatal hernia General Exam Limitations: no limitations General appearance: alert, in no apparent distress Head exam: Present: atraumatic, normocephalic, normal inspection Eye exam: Present: normal appearance, PERRL, EOMI. Absent: scleral icterus, conjunctival injection, periorbital swelling ENT exam: Present: normal exam, mucous membranes moist Neck exam: Present: normal inspection. Absent: tenderness, meningismus, lymphadenopathy Respiratory exam: Present: normal lung sounds bilaterally. Absent: respiratory distress, wheezes, rales, rhonchi, stridor Cardiovascular Exam: Present: regular rate, normal rhythm, normal heart sounds. Absent: systolic murmur, diastolic murmur, rubs, gallop, clicks GI/Abdominal exam: Present: soft, normal bowel sounds. Absent: distended, tenderness, guarding, rebound, rigid Extremities exam: Present: normal inspection, full ROM, normal capillary refill. Absent: tenderness, pedal edema, joint swelling, calf tenderness Back exam: Present: normal inspection Neurological exam: Present: alert, oriented X3, CN II-XII intact Psychiatric exam: Present: normal affect, normal mood Skin exam: Present: warm, dry, intact, normal color. Absent: rash Course Vital Signs 09/16/23 09/16/23 09/16/23 13:57 18:00 19:29 Temperature 98.0 F Pulse Rate 104 H 99 106 H Respiratory 18 18 16 Rate Blood Pressure 112/71 110/69 113/69 O2 Sat by Pulse 100 100 100 Oximetry 09/16/23 09/16/23 09/16/23 21:00 22:30 22:40 Temperature 98.1 F 98.6 F Pulse Rate 110 H 103 H 104 H Respiratory 16 18 16 Rate Blood Pressure 126/82 109/64 103/60 O2 Sat by Pulse 99 99 95 Oximetry 09/16/23 09/17/23 09/17/23 23:00 00:14 02:00 Temperature 98.6 F 98.6 F Pulse Rate 98 99 101 H Respiratory 16 16 14 Rate Blood Pressure 103/60 108/68 106/64 O2 Sat by Pulse 94 L 96 97 Oximetry 09/17/23 09/17/23 09/17/23 03:00 04:00 05:00 Temperature Pulse Rate 101 H 101 H 98 Respiratory 22 18 22 Rate Blood Pressure 108/64 101/64 104/58 O2 Sat by Pulse 95 95 95 Oximetry 09/17/23 09/17/23 09/17/23 06:00 06:29 10:00 Temperature Pulse Rate 97 105 H Respiratory 20 16 20 Rate Blood Pressure 100/71 127/73 O2 Sat by Pulse 96 98 Oximetry 09/17/23 09/17/23 09/17/23 11:00 12:00 13:00 Temperature Pulse Rate 100 93 109 H Respiratory 22 18 15 Rate Blood Pressure 119/65 119/68 102/59 O2 Sat by Pulse 98 95 98 Oximetry 09/17/23 09/17/23 14:33 16:32 Temperature Pulse Rate 93 87 Respiratory 20 20 Rate Blood Pressure 96/53 107/65 O2 Sat by Pulse 94 L 99 Oximetry - Reevaluation(s) Reevaluation #1: 09/16/23 17:40 Medical records reviewed Reevaluation #2: 09/16/23 17:40 Patient symptoms are unchanged Reevaluation #3: 09/16/23 17:40 Patient informed of results questions answered Reevaluation #4: Was pt. sent in by a medical professional or institution (, PA, PRIMARY OPERATOR, urgent care, hospital, or longterm...) When possible be specific @ -no Did you speak to anyone other than the patient for history (EMS, parent, family, police, friend...)? What history was obtained from this source @ -no Did you review nursing and triage notes (agree or disagree)? Why? @ -agree Are old charts reviewed (outside hosp., previous admission, EMS record, old EKG, old radiological studies, urgent care reports/EKG's, longterm records)? Report findings @ -yes Differential Diagnosis (chest pain, altered mental status, abdominal pain women, abdominal pain men, vaginal bleeding, weakness, fever, dyspnea, syncope, headache, dizziness, GI bleed, back pain, seizure, CVA, palpatations, mental health, musculoskeletal)? @ -prior EKG interpreted by me (3pts min.). @ -yes X-rays interpreted by me (1pt min.). @ -no CT interpreted by me (1pt min.). @ -no U/S interpreted by me (1pt. min.). @ -no What testing was considered but not performed or refused? (CT, X-rays, U/S, labs)? Why? @ -none What meds were considered but not given or refused? Why? @ -none Did you discuss the management of the patient with other professionals (professionals i.e. Dr., PA, PRIMARY OPERATOR, lab, RT, psych nurse, director social service, histologic aide, teacher, senior compliance officer, rn case mgr)? Give summary @ -no Was smoking cessation discussed for >3mins.? @ -no Was critical care preformed (if so, how long)? @ -yes31 Were there social determinants of health that impacted care today? How? (Ho melessness, low income, unemployed, alcoholism, drug addiction, transportation, low edu. Level, literacy, decrease access to med. care, nursing home, rehab)? @ -none Was there de-escalation of care discussed even if they declined (Discuss DNR or withdrawal of care, Hospice)? DNR status @ -no What co-morbidities impacted this encounter? (DM, HTN, Smoking, COPD, CAD, Cancer, CVA, ARF, Chemo, Hep., AIDS, mental health diagnosis, sleep apnea, morbid obesity)? @ -none Was patient admitted / discharged? Hospital course, mention meds given and route, prescriptions, significant lab abnormalities, going to OR and other pertinent info. @ - 58 female to ER with significant anemia, blood loss anemia secondary to bleeding sacral decubitus wound. Patient admitted for wound care and transfusion Admitted Undiagnosed new problem with uncertain prognosis? @ -no Drug Therapy requiring intensive monitoring for toxicity (Heparin, Nitro, Insulin, Cardizem)? @ -no Were any procedures done? @ -no Diagnosis/symptom? @ -Blood loss anemia significant wound Acute, or Chronic, or Acute on Chronic? @ -Acute Uncomplicated (without systemic symptoms) or Complicated (systemic symptoms)? @ -Complicated Side effects of treatment? @ -no Exacerbation, Progression, or Severe Exacerbation? @ -exacerbation Poses a threat to life or bodily function? How? (Chest pain, USA, AL, pneumonia, PE, COPD, DKA, ARF, appy, cholecystitis, CVA, Diverticulitis, Homicidal, Suicidal, threat to staff... and all critical care pts) @ -yes with significant blood loss anemia Reevaluation #5: Differential Weakness: Hypoglycemia, shock, sepsis, hyponatremia, anemia, infection, AL, ETOH, adverse medicine reaction, overdose, stroke, this is not meant to be an all-inclusive list. - Consultations Consultation #1: Spoke with [facility] who agrees to admit this patient Medical Decision Making - Medical Decision Making 58 female to ER with significant anemia, blood loss anemia secondary to bleeding sacral decubitus wound. Patient admitted for wound care and transfusion - Lab Data Result diagrams: 09/18/23 08:39 09/18/23 08:39 Lab Results 09/16/23 09/16/23 Range/Units 15:07 15:07 WBC 9.9 (3.8-10.6) k/uL RBC 2.81 L (3.80-5.40) m/uL Hgb 6.6 L* (11.4-16.0) gm/dL Hct 24.1 L (34.0-46.0) % MCV 86.1 (80.0-100.0) fL MCH 23.6 L (25.0-35.0) pg MCHC 27.4 L (31.0-37.0) g/dL RDW 18.5 H (11.5-15.5) % Plt Count 446 (150-450) k/uL MPV 7.2 Neutrophils % 69 % Lymphocytes % 24 % Monocytes % 4 % Eosinophils % 0 % Basophils % 0 % Neutrophils # 6.8 (1.3-7.7) k/uL Lymphocytes # 2.4 (1.0-4.8) k/uL Monocytes # 0.4 (0-1.0) k/uL Eosinophils # 0.0 (0-0.7) k/uL Basophils # 0.0 (0-0.2) k/uL Hypochromasia Marked Anisocytosis Slight Sodium 140 (137-145) mmol/L Potassium 4.0 (3.5-5.1) mmol/L Chloride 114 H (98-107) mmol/L Carbon Dioxide 17 L (22-30) mmol/L Anion Gap 9 mmol/L BUN 48 H (7-17) mg/dL Creatinine 0.82 (0.52-1.04) mg/dL Est GFR (CKD-EPI)AfAm >90 (>60 ml/min/1.73 sqM) Est GFR (CKD-EPI)NonAf 80 (>60 ml/min/1.73 sqM) Glucose 150 H (74-99) mg/dL Calcium 8.1 L (8.4-10.2) mg/dL Phosphorus 5.2 H (2.5-4.5) mg/dL Magnesium 1.9 (1.6-2.3) mg/dL Total Bilirubin 0.2 (0.2-1.3) mg/dL AST 15 (14-36) U/L ALT 10 (4-34) U/L Alkaline Phosphatase 156 H (38-126) U/L Total Protein 6.9 (6.3-8.2) g/dL Albumin 2.6 L (3.5-5.0) g/dL - EKG Data -: EKG Interpreted by Me (EKG is sinus 92 CA 135 QRS 105 QTc 451) Critical Care Time Critical Care Time: Yes Total Critical Care Time: 31 Disposition Clinical Impression: Pressure injury of right hip, stage 4, Stage II pressure ulcer of sacral region, Stage III pressure ulcer of right buttock, Anemia Disposition: ADMITTED IP TO THIS HOSP Condition: Fair Is patient prescribed a controlled substance at d/c from ED?: No Time of Disposition: 17:20
[2023-09-16 15:18] LABS: Anisocytosis Slight; Basophils % (A) 0 %; Eosinophils % (A) 0 %; HCT 24.1 % (34.0-46.0); Hypochromasia Marked; Lymphocytes # (A) 2.4 k/uL (1.0-4.8); Lymphocytes % (A) 24 %; MCH 23.6 pg (25.0-35.0); MCHC 27.4 g/dL (31.0-37.0); MCV 86.1 fL (80.0-100.0); Mean Platelet Volume 7.2; Monocytes # (A) 0.4 k/uL (0-1.0); Monocytes % (A) 4 %; Neutrophils # (A) 6.8 k/uL (1.3-7.7); Neutrophils % (A) 69 %; Platelet Count 446 k/uL (150-450); RBC 2.81 m/uL (3.80-5.40); RDW 18.5 % (11.5-15.5); WBC 9.9 k/uL (3.8-10.6)
[2023-09-16 15:46] LABS: HGB 6.6 gm/dL (11.4-16.0)
[2023-09-16 15:55] LABS: ALT 10 U/L (4-34); AST 15 U/L (14-36); African American GFR (CKD) >90 (>60 ml/min/1.73 sqM); Albumin 2.6 g/dL (3.5-5.0); Alkaline Phosphatase 156 U/L (38-126); Anion Gap 9 mmol/L; Blood Urea Nitrogen 48 mg/dL (7-17); Calcium 8.1 mg/dL (8.4-10.2); Carbon Dioxide 17 mmol/L (22-30); Chloride 114 mmol/L (98-107); Glucose 150 mg/dL (74-99); Magnesium 1.9 mg/dL (1.6-2.3); Non-African American GFR(CKD) 80 (>60 ml/min/1.73 sqM); Phosphorus 5.2 mg/dL (2.5-4.5); Sodium 140 mmol/L (137-145); Total Bilirubin 0.2 mg/dL (0.2-1.3); Total Protein 6.9 g/dL (6.3-8.2)
[2023-09-16] MEDS ORDERED: ONDANSETRON 4 MG/2 ML VIAL IVP PRN (17:23)
[2023-09-16] MEDS ORDERED: NALOXONE 0.4 MG/ML 1 ML VIAL IV PRN (17:23)
[2023-09-16] MEDS: HYDROmorphone 1 MG/ML 1 ML SYRINGE IVP PRN (21:36)
[2023-09-17 05:40] LABS: Anisocytosis Slight; Basophils % (A) 0 %; Eosinophils % (A) 0 %; HCT 26.2 % (34.0-46.0); HGB 7.5 gm/dL (11.4-16.0); Hypochromasia Marked; Lymphocytes # (A) 2.6 k/uL (1.0-4.8); Lymphocytes % (A) 30 %; MCHC 28.6 g/dL (31.0-37.0); MCV 87.6 fL (80.0-100.0); Mean Platelet Volume 7.6; Monocytes # (A) 0.4 k/uL (0-1.0); Monocytes % (A) 5 %; Neutrophils # (A) 5.4 k/uL (1.3-7.7); Neutrophils % (A) 63 %; Platelet Count 429 k/uL (150-450); Poikilocytosis Slight; RBC 2.99 m/uL (3.80-5.40); RDW 18.6 % (11.5-15.5); WBC 8.7 k/uL (3.8-10.6)
[2023-09-17] MEDS ORDERED: HYDROcodone/APAP 5-325MG 1 EACH TAB PO PRN (09:29)
[2023-09-17] MEDS ORDERED: CHOLESTYRAMINE (WITH SUGAR) 4 GM PACKET PO PRN (09:29)
--- NOTE | 2023-09-17 10:24 | P.GSCN ---
History of Present Illness Consult date: 09/17/23 Reason for Consult: Decubitus ulcer History of present illness: 58-year-old female known to our service.Patient was last seen in late May. At that time the patient had a necrotic area involving her right trochanteric decubitus ulcer. This required bedside debridement. Patient was essentially discharged back to long-term nursing facility. Apparently has had some oozing from the sacral decubitus ulcer site recently. Patient states it is not heavy bleeding. She has diffuse discomforts. She was sent to the hospital because of low hemoglobin. Patient insists that she was only supposed to come in for a transfusion. She is not happy that they are admitting her. We were consulted to evaluate her sacral decubitus ulcer. She has received 1 unit of blood. Hemoglobin in the mid 7 range currently. Review of Systems The patient denies any acute changes in vision or hearing, no dysphagia or odynophagia, no chest pain or shortness of breath, no headache, no runny nose, no rectal bleeding or melena, no unexplained weight loss Past Medical History Past Medical History: Asthma, Diabetes Mellitus, GERD/Reflux, Musculoskeletal Disorder, Neurologic Disorder, Pneumonia, Renal Disease, Sleep Apnea/CPAP/BIPAP Additional Past Medical History / Comment(s): 08-09-15 admitted with cellulitis of external nose. other pst medical hx includes: hx. 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 ESBL MDRO Source:: MRSA BUTTOCK, ESBL LEG Past Surgical History: Back Surgery, Bowel Resection, Orthopedic Surgery Additional Past Surgical History / Comment(s): multiple surgeries for hydrocephalus, urostomy x 2, multiple hip,leg, foot surgeries, ankles fused, [facility] shunt, pt stated back sx was to remove spina bifida growth, egd Past Anesthesia/Blood Transfusion Reactions: No Reported Reaction Past Psychological History: No Psychological Hx Reported Smoking Status: Never smoker Past Alcohol Use History: None Reported Past Drug Use History: None Reported - Past Family History Father Family Medical History: Hypertension Additional Family Medical History / Comment(s): gout, heart murmur, rheumatic fever as child, tia Mother Family Medical History: Cancer, Hypertension Additional Family Medical History / Comment(s): interstitial cystitis, breast cancer x2, diet controlled diabetic, hiatal hernia Medications and Allergies Home Medications Medication Instructions Recorded Confirmed Type allopurinoL [Zyloprim] 300 mg PO DAILY 10/04/14 09/16/23 History Calcium Carbonate 500 mg PO DAILY 06/09/23 09/16/23 History Cholestyramine (with Sugar) 4 gm PO TID PRN 06/09/23 09/16/23 History [Questran Packet] Ferrous Sulfate [Iron (65 MG 325 mg PO DAILY 06/09/23 09/16/23 History Elemental)] Lidocaine Viscous 2% [Xylocaine 5 ml PO Q4H PRN 06/09/23 09/16/23 History Viscous] Magnesium Oxide [Mag-Ox] 400 mg PO DAILY 06/09/23 09/16/23 History Menthol [Icy Hot] 2 patch TRANSDERM DAILY 06/09/23 09/16/23 History Thiamine [Vitamin B-1] 100 mg PO DAILY 06/09/23 09/16/23 History HYDROcodone/APAP 5-325MG [[place] 1 tab PO Q4H PRN 3 Days #18 tab 06/18/23 09/16/23 Rx 5-325] Ascorbic Acid [Vitamin C] 500 mg PO DAILY 09/16/23 09/16/23 History Chlorhexidine Gluconate [Peridex] 15 ml PO BID 09/16/23 09/16/23 History Folic Acid 0.4 mg PO BID 09/16/23 09/16/23 History Heparin Lock Flush Solution 50 unit IV Q24H PRN 09/16/23 09/16/23 History 10unit/Ml Heparin Lock Flush Solution 50 units IV QMONTHLY 09/16/23 09/16/23 History 10unit/Ml Lansoprazole [Prevacid] 15 mg PO DAILY 09/16/23 09/16/23 History Levofloxacin [Levaquin] 750 mg PO DAILY@0700 09/16/23 09/16/23 History Morphine Sulfate ER [Ms Contin] 15 mg PO DAILY@1500 09/16/23 09/16/23 History Multivitamins, Thera [Multivitamin 1 tab PO HS 09/16/23 09/16/23 History (formulary)] Naloxone HCl 0.4 mg IM ONCE PRN 09/16/23 09/16/23 History Naloxone HCl [Narcan] 4 mg NASAL ONCE PRN 09/16/23 09/16/23 History Nutritional Juice 4 oz PO W/BRKFST@0700 09/16/23 09/16/23 History Saccharomyces Boulardii (Unknown 1 cap PO BID 09/16/23 09/16/23 History Strength) Sodium Chloride 0.9 % (Flush) 10 ml IV Q24H PRN 09/16/23 09/16/23 History [Aquastat (Flush)] Sodium Chloride 0.9 % (Flush) 10 ml IV QMONTHLY 09/16/23 09/16/23 History [Aquastat (Flush)] Torsemide [Demadex] 20 mg PO BID@0700,1600 09/16/23 09/16/23 History clindamycin HCL [Cleocin] 600 mg PO QID@05,11,17,23 09/16/23 09/16/23 History Allergies Allergy/AdvReac Type Severity Reaction Status Date / Time amoxicillin trihydrate Allergy Rash/Hives Verified 09/16/23 16:32 [From Augmentin] banana Allergy Unknown Verified 09/16/23 16:32 chestnut Allergy Unknown Verified 09/16/23 16:32 ciprofloxacin [From Cipro] Allergy Rash/Hives Verified 09/16/23 16:32 ciprofloxacin HCl Allergy Rash/Hives Verified 09/16/23 16:32 [From Cipro] kiwi Allergy Unknown Verified 09/16/23 16:32 Latex, Natural Rubber Allergy Anaphylaxis Verified 09/16/23 16:32 methylprednisolone Allergy Rash/Hives Verified 09/16/23 16:32 [From Solu-Medrol] midazolam Allergy Unknown Verified 09/16/23 16:32 nitrofurantoin Allergy Rash/Hives Verified 09/16/23 16:32 macrocrystalline [From Macrodantin] oxacillin Allergy Unknown Verified 09/16/23 16:32 potassium clavulanate Allergy Rash/Hives Verified 09/16/23 16:32 [From Augmentin] Sulfa (Sulfonamide Allergy Rash/Hives, Verified 09/16/23 16:32 Antibiotics) high blood pressure vancomycin Allergy Anaphylaxis Verified 09/16/23 16:32 Beef Containing Products AdvReac Diarrhea Verified 09/16/23 16:32 [Beef] sucralose AdvReac Diarrhea Verified 09/16/23 16:32 [From Splenda (sucralose)] callagen Allergy Rash/Hives Uncoded 09/16/23 14:01 Surgical - Exam Vital Signs Temp Pulse Resp BP Pulse Ox 98.0 F 104 H 18 112/71 100 09/16/23 13:57 09/16/23 13:57 09/16/23 13:57 09/16/23 13:57 09/16/23 13:57 Physical exam: General: Well-developed, well-nourished HEENT: Normocephalic, sclerae nonicteric Abdomen: Nontender, nondistended, Urostomy in place, multiple scars present Extremities: No edema, Contractures and lower extremity edema noted, large sacral cubitus ulcer with excellent granulation tissue. No active bleeding. Right trochanteric decubitus ulcer clean with granulation tissue noted, mild tenderness at both sites, no tissue requiring debridement at this time Neuro: Alert and oriented Results - Labs 09/17/23 05:01 09/16/23 15:07 Abnormal Lab Results - Last 24 Hours (Table) 09/16/23 09/16/23 09/16/23 Range/Units 15:07 15:07 20:45 RBC 2.81 L (3.80-5.40) m/uL Hgb 6.6 L* (11.4-16.0) gm/dL Hct 24.1 L (34.0-46.0) % MCH 23.6 L (25.0-35.0) pg MCHC 27.4 L (31.0-37.0) g/dL RDW 18.5 H (11.5-15.5) % Chloride 114 H (98-107) mmol/L Carbon Dioxide 17 L (22-30) mmol/L BUN 48 H (7-17) mg/dL Glucose 150 H (74-99) mg/dL Calcium 8.1 L (8.4-10.2) mg/dL Phosphorus 5.2 H (2.5-4.5) mg/dL Alkaline Phosphatase 156 H (38-126) U/L Albumin 2.6 L (3.5-5.0) g/dL Crossmatch See Detail 09/17/23 Range/Units 05:01 RBC 2.99 L (3.80-5.40) m/uL Hgb 7.5 L (11.4-16.0) gm/dL Hct 26.2 L (34.0-46.0) % MCH (25.0-35.0) pg MCHC 28.6 L (31.0-37.0) g/dL RDW 18.6 H (11.5-15.5) % Chloride (98-107) mmol/L Carbon Dioxide (22-30) mmol/L BUN (7-17) mg/dL Glucose (74-99) mg/dL Calcium (8.4-10.2) mg/dL Phosphorus (2.5-4.5) mg/dL Alkaline Phosphatase (38-126) U/L Albumin (3.5-5.0) g/dL Crossmatch Diabetes panel 09/16/23 Range/Units 15:07 Sodium 140 (137-145) mmol/L Potassium 4.0 (3.5-5.1) mmol/L Chloride 114 H (98-107) mmol/L Carbon Dioxide 17 L (22-30) mmol/L BUN 48 H (7-17) mg/dL Creatinine 0.82 (0.52-1.04) mg/dL Glucose 150 H (74-99) mg/dL Calcium 8.1 L (8.4-10.2) mg/dL AST 15 (14-36) U/L ALT 10 (4-34) U/L Alkaline Phosphatase 156 H (38-126) U/L Total Protein 6.9 (6.3-8.2) g/dL Albumin 2.6 L (3.5-5.0) g/dL Calcium panel 09/16/23 Range/Units 15:07 Calcium 8.1 L (8.4-10.2) mg/dL Phosphorus 5.2 H (2.5-4.5) mg/dL Albumin 2.6 L (3.5-5.0) g/dL Pituitary panel 09/16/23 Range/Units 15:07 Sodium 140 (137-145) mmol/L Potassium 4.0 (3.5-5.1) mmol/L Chloride 114 H (98-107) mmol/L Carbon Dioxide 17 L (22-30) mmol/L BUN 48 H (7-17) mg/dL Creatinine 0.82 (0.52-1.04) mg/dL Glucose 150 H (74-99) mg/dL Calcium 8.1 L (8.4-10.2) mg/dL Adrenal panel 09/16/23 Range/Units 15:07 Sodium 140 (137-145) mmol/L Potassium 4.0 (3.5-5.1) mmol/L Chloride 114 H (98-107) mmol/L Carbon Dioxide 17 L (22-30) mmol/L BUN 48 H (7-17) mg/dL Creatinine 0.82 (0.52-1.04) mg/dL Glucose 150 H (74-99) mg/dL Calcium 8.1 L (8.4-10.2) mg/dL Total Bilirubin 0.2 (0.2-1.3) mg/dL AST 15 (14-36) U/L ALT 10 (4-34) U/L Alkaline Phosphatase 156 H (38-126) U/L Total Protein 6.9 (6.3-8.2) g/dL Albumin 2.6 L (3.5-5.0) g/dL Assessment and Plan (1) Pressure injury of sacral region, stage 4 Narrative/Plan: 58-year-old female with large sacral decubitus ulcer and right trochanteric ulcer. Wounds are clean at this time. No active bleeding currently. No surgical intervention planned at this time. Continue local care by the wound care team. We'll sign off. Please call if needed. Current Visit: No Status: Acute Code(s): L89.154 - PRESSURE ULCER OF SACRAL REGION, STAGE 4 SNOMED Code(s): 41673692980103
--- NOTE | 2023-09-17 10:43 | P.HPIM ---
History of Present Illness H&P Date: 09/17/23 History of present illness;patient is a 58-year-old lady with past medical histo ry significant for asthma,diabetes mellitus, insulin-dependent, GERD, musculoskeletal disorder, neurologic disorder, and sleep apnea with CPAP, spina bifida and hydrocephalus with [place] I malformation history, recurrent UTIs with ESBL along with MRSA of her buttock and leg regions presented to the ER for bleeding from her sacral decub. Patient has been noticing that she has been bleeding from her sacral decub. Patient denies any complaint of lightheaded dizziness. There was no complaint of shortness of breath. Denied chest pain. There was no complaint orthopnea or PND. Patient normally uses wheelchair lives in care home facility. Because of bleeding she came to the ER Initial lab work done in the ER showed WBC 9.9, hemoglobin 6.6, platelet count 446, sodium 140, potassium 4, BUN 48, creatinine 0.82, glucose 150 phosphorus 5.2 alk phos 156 EKG done in the ER showed heart rate of 92, MN 135, QRS 105, no ST segment elevation or depression seen, no T-wave inversions seen. Patient admitted to internal medicine service REVIEW OF SYSTEMS: CONSTITUTIONAL: No fever, no malaise, no fatigue. HEENT: No recent visual problems or hearing problems. Denied any sore throat. CARDIOVASCULAR: No chest pain, orthopnea, PND, no palpitations, no syncope. PULMONARY: No shortness of breath, no cough, no hemoptysis. GASTROINTESTINAL: No diarrhea, no nausea, no vomiting, no abdominal pain. NEUROLOGICAL: No headaches, no weakness, no numbness. HEMATOLOGICAL: Denies any bleeding or petechiae. GENITOURINARY: Denies any burning micturition, frequency, or urgency. MUSCULOSKELETAL/RHEUMATOLOGICAL: As mentioned above ENDOCRINE: Denies any polyuria or polydipsia. The rest of the 14-point review of systems is negative. PHYSICAL EXAMINATION: GENERAL: The patient is alert and oriented x3, not in any acute distress. Well developed, well nourished. HEENT: Pupils are round and equally reacting to light. EOMI. No scleral icterus. No conjunctival pallor. Normocephalic, atraumatic. No pharyngeal erythema. No thyromegaly. CARDIOVASCULAR: S1 and S2 present. No murmurs, rubs, or gallops. PULMONARY: Chest is clear to auscultation, no wheezing or crackles. ABDOMEN: Soft, nontender, nondistended, normoactive bowel sounds. No palpable organomegaly. Urostomy seen MUSCULOSKELETAL: Atrophy of lower extremities seen EXTREMITIES: No cyanosis, clubbing, or pedal edema. NEUROLOGICAL: Gross neurological examination did not reveal any focal deficits. SKIN: Stage IV sacral decub seen. Right trochanteric decub seen Assessment and plan Anemia Stage IV sacral decub stage IV pressure ulcer to right torchanter Sacral decub and right decubitus ulcer with chronic underlying bony changes likely related to chronic osteomyelitis Hyponatremia Acute on chronic kidney disease Anemia Acute urinary tract infection, present on admission with failed outpatient therapy Past history of MRSA and ESBL of the wounds recurrent urinary tract infections Asthma history, not in exacerbation Diabetes mellitus, type II, insulin-dependent Gastroesophageal reflux disease Musculoskeletal disorder History of spina bifida with hydrocephalus [place] I malformation Chronic renal disease Sleep apnea with a CPAP Monitor vital signs Monitor CBC Monitor CMP Ordered anemia workup ferritin, iron saturation, vitamin B12 and folate levels Ordered FOBT She did receive 1 unit of packed red blood cell Resume home meds Consult surgery Consult ID Labs and medication were reviewed.. Continue same treatment. Continue with symptomatic treatment. Resume home medication. Monitor labs and vitals. DVT and GI prophylaxis. Further recommendations as per clinical course of the patient Dictation was produced using [employer] dictation software. please excuse any grammatical, word or spelling errors. Past Medical History Past Medical History: Asthma, Diabetes Mellitus, GERD/Reflux, Musculoskeletal Disorder, Neurologic Disorder, Pneumonia, Renal Disease, Sleep Apnea/CPAP/BIPAP Additional Past Medical History / Comment(s): 08-09-15 admitted with cellulitis of external nose. other pst medical hx includes: hx. 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, MRSA Date of last positivie culture/infection: 07/07/21 MRSA 01/07/15 ESBL MDRO Source:: MRSA BUTTOCK, ESBL LEG Past Surgical History: Back Surgery, Bowel Resection, Orthopedic Surgery Additional Past Surgical History / Comment(s): multiple surgeries for hydrocephalus, urostomy x 2, multiple hip,leg, foot surgeries, ankles fused, [facility] shunt, pt stated back sx was to remove spina bifida growth, egd Past Anesthesia/Blood Transfusion Reactions: No Reported Reaction Past Psychological History: No Psychological Hx Reported Smoking Status: Never smoker Past Alcohol Use History: None Reported Past Drug Use History: None Reported - Past Family History Father Family Medical History: Hypertension Additional Family Medical History / Comment(s): gout, heart murmur, rheumatic fever as child, tia Mother Family Medical History: Cancer, Hypertension Additional Family Medical History / Comment(s): interstitial cystitis, breast cancer x2, diet controlled diabetic, hiatal hernia Medications and Allergies Home Medications Medication Instructions Recorded Confirmed Type allopurinoL [Zyloprim] 300 mg PO DAILY 10/04/14 09/16/23 History Calcium Carbonate 500 mg PO DAILY 06/09/23 09/16/23 History Cholestyramine (with Sugar) 4 gm PO TID PRN 06/09/23 09/16/23 History [Questran Packet] Ferrous Sulfate [Iron (65 MG 325 mg PO DAILY 06/09/23 09/16/23 History Elemental)] Lidocaine Viscous 2% [Xylocaine 5 ml PO Q4H PRN 06/09/23 09/16/23 History Viscous] Magnesium Oxide [Mag-Ox] 400 mg PO DAILY 06/09/23 09/16/23 History Menthol [Icy Hot] 2 patch TRANSDERM DAILY 06/09/23 09/16/23 History Thiamine [Vitamin B-1] 100 mg PO DAILY 06/09/23 09/16/23 History HYDROcodone/APAP 5-325MG [[place] 1 tab PO Q4H PRN 3 Days #18 tab 06/18/23 09/16/23 Rx 5-325] Ascorbic Acid [Vitamin C] 500 mg PO DAILY 09/16/23 09/16/23 History Chlorhexidine Gluconate [Peridex] 15 ml PO BID 09/16/23 09/16/23 History Folic Acid 0.4 mg PO BID 09/16/23 09/16/23 History Heparin Lock Flush Solution 50 unit IV Q24H PRN 09/16/23 09/16/23 History 10unit/Ml Heparin Lock Flush Solution 50 units IV QMONTHLY 09/16/23 09/16/23 History 10unit/Ml Lansoprazole [Prevacid] 15 mg PO DAILY 09/16/23 09/16/23 History Levofloxacin [Levaquin] 750 mg PO DAILY@0700 09/16/23 09/16/23 History Morphine Sulfate ER [Ms Contin] 15 mg PO DAILY@1500 09/16/23 09/16/23 History Multivitamins, Thera [Multivitamin 1 tab PO HS 09/16/23 09/16/23 History (formulary)] Naloxone HCl 0.4 mg IM ONCE PRN 09/16/23 09/16/23 History Naloxone HCl [Narcan] 4 mg NASAL ONCE PRN 09/16/23 09/16/23 History Nutritional Juice 4 oz PO W/BRKFST@0700 09/16/23 09/16/23 History Saccharomyces Boulardii (Unknown 1 cap PO BID 09/16/23 09/16/23 History Strength) Sodium Chloride 0.9 % (Flush) 10 ml IV Q24H PRN 09/16/23 09/16/23 History [Aquastat (Flush)] Sodium Chloride 0.9 % (Flush) 10 ml IV QMONTHLY 09/16/23 09/16/23 History [Aquastat (Flush)] Torsemide [Demadex] 20 mg PO BID@0700,1600 09/16/23 09/16/23 History clindamycin HCL [Cleocin] 600 mg PO QID@05,11,17,23 09/16/23 09/16/23 History Allergies Allergy/AdvReac Type Severity Reaction Status Date / Time amoxicillin trihydrate Allergy Rash/Hives Verified 09/16/23 16:32 [From Augmentin] banana Allergy Unknown Verified 09/16/23 16:32 chestnut Allergy Unknown Verified 09/16/23 16:32 ciprofloxacin [From Cipro] Allergy Rash/Hives Verified 09/16/23 16:32 ciprofloxacin HCl Allergy Rash/Hives Verified 09/16/23 16:32 [From Cipro] kiwi Allergy Unknown Verified 09/16/23 16:32 Latex, Natural Rubber Allergy Anaphylaxis Verified 09/16/23 16:32 methylprednisolone Allergy Rash/Hives Verified 09/16/23 16:32 [From Solu-Medrol] midazolam Allergy Unknown Verified 09/16/23 16:32 nitrofurantoin Allergy Rash/Hives Verified 09/16/23 16:32 macrocrystalline [From Macrodantin] oxacillin Allergy Unknown Verified 09/16/23 16:32 potassium clavulanate Allergy Rash/Hives Verified 09/16/23 16:32 [From Augmentin] Sulfa (Sulfonamide Allergy Rash/Hives, Verified 09/16/23 16:32 Antibiotics) high blood pressure vancomycin Allergy Anaphylaxis Verified 09/16/23 16:32 Beef Containing Products AdvReac Diarrhea Verified 09/16/23 16:32 [Beef] sucralose AdvReac Diarrhea Verified 09/16/23 16:32 [From Splenda (sucralose)] callagen Allergy Rash/Hives Uncoded 09/16/23 14:01 Physical Exam Vitals: Vital Signs Temp Pulse Resp BP Pulse Ox 09/17/23 06:29 16 09/17/23 06:00 97 20 100/71 96 09/17/23 05:00 98 22 104/58 95 09/17/23 04:00 101 H 18 101/64 95 09/17/23 03:00 101 H 22 108/64 95 09/17/23 02:00 101 H 14 106/64 97 09/17/23 00:14 98.6 F 99 16 108/68 96 09/16/23 23:00 98.6 F 98 16 103/60 94 L 09/16/23 22:40 98.6 F 104 H 16 103/60 95 09/16/23 22:30 98.1 F 103 H 18 109/64 99 09/16/23 21:00 110 H 16 126/82 99 09/16/23 19:29 106 H 16 113/69 100 09/16/23 18:00 99 18 110/69 100 09/16/23 13:57 98.0 F 104 H 18 112/71 100 Intake and Output 09/16/23 09/17/23 09/17/23 22:59 06:59 14:59 Intake Total 0 310 Balance 0 310 Intake: Blood Product 0 310 Rc Irr As1 Unit 0 310 [id number] Results CBC & Chem 7: 09/17/23 05:01 09/16/23 15:07 Labs: Abnormal Lab Results - Last 24 Hours (Table) 03/09/16/23 09/16/23 Range/Units 15:07 15:07 20:45 RBC 2.81 L (3.80-5.40) m/uL Hgb 6.6 L* (11.4-16.0) gm/dL Hct 24.1 L (34.0-46.0) % MCH 23.6 L (25.0-35.0) pg MCHC 27.4 L (31.0-37.0) g/dL RDW 18.5 H (11.5-15.5) % Chloride 114 H (98-107) mmol/L Carbon Dioxide 17 L (22-30) mmol/L BUN 48 H (7-17) mg/dL Glucose 150 H (74-99) mg/dL Calcium 8.1 L (8.4-10.2) mg/dL Phosphorus 5.2 H (2.5-4.5) mg/dL Alkaline Phosphatase 156 H (38-126) U/L Albumin 2.6 L (3.5-5.0) g/dL Crossmatch See Detail 09/17/23 Range/Units 05:01 RBC 2.99 L (3.80-5.40) m/uL Hgb 7.5 L (11.4-16.0) gm/dL Hct 26.2 L (34.0-46.0) % MCH (25.0-35.0) pg MCHC 28.6 L (31.0-37.0) g/dL RDW 18.6 H (11.5-15.5) % Chloride (98-107) mmol/L Carbon Dioxide (22-30) mmol/L BUN (7-17) mg/dL Glucose (74-99) mg/dL Calcium (8.4-10.2) mg/dL Phosphorus (2.5-4.5) mg/dL Alkaline Phosphatase (38-126) U/L Albumin (3.5-5.0) g/dL Crossmatch
[2023-09-17] MEDS: FOLIC ACID 1 MG TAB PO SCH (12:09)
[2023-09-17] MEDS: PANTOPRAZOLE 40 MG TABLET PO SCH (12:10)
[2023-09-17] MEDS: allopurinoL 300 MG TAB PO SCH (12:10)
[2023-09-17] MEDS: ASCORBIC ACID 500 MG TAB PO SCH (12:10)
[2023-09-17 17:28] LABS: Glucose,Whole Blood 179 mg/dL (70-110)
[2023-09-17] MEDS: MORPHINE SULFATE ER 15 MG TABLET PO SCH (18:04)
[2023-09-17] MEDS: TORSEMIDE 20 MG TAB PO SCH (18:04)
[2023-09-17 20:20] LABS: Glucose,Whole Blood 219 mg/dL (70-110)
[2023-09-17 20:37] LABS: % Iron Saturation 5.85 (12.00-45.00)
[2023-09-17] MEDS: LACTOBACILLUS ACIDOPHILUS/PECT 1 EACH CAPSULE PO SCH (21:35)
--- NOTE | 2023-09-17 23:32 | P.CONS ---
History of Present Illness - Reason for Consult Consult date: 09/17/23 Sacral decubitus evaluate need for antibiotics Requesting physician: Seth Dillard - Chief Complaint Low hemoglobin need for transfusion x 1 day - History of Present Illness Patient is a 58-year-old female with a past medical history significant for diabetes mellitus asthma, spina bifida hydrocephalus chronic bedbound status, patient did have a stage IV sacral pressure ulcer as well as right hip/trochanteric pressure ulcer with the patient has for couple of months and has completed course of IV antibiotic therapy for underlying osteomyelitis patient apparently was sent to the ER however patient was noticed to have low hemoglobin and need for blood transfusion patient on presentation to hospital did have a hemoglobin of 6.6 and received a transfusion patient did have a normal white count not running any fever patient did mention admitting physician that she did grow Pseudomonas from her sacral wound and the patient was supposed to be started on IV antibiotic therapy which never happened and wanted to be considered for further treatment for the same, patient micro review at this facility done on 08/18/2023 did shows 3 different pathogen including Pseudomonas and Citrobacter and Proteus species patient currently denies having any fever or any chills patient would have significant sensation to the lower body and denies any pain patient denies having any foul-smelling drainage from her wound patient has been eval by general surgery and mention the wounds are clean and no need for any debridement infectious was consulted for need for antibiotic therapy Review of Systems Positive point and negatives has been mentioned in the HPI, complete review of systems was performed and all other systems are negative Past Medical History Past Medical History: Asthma, Diabetes Mellitus, GERD/Reflux, Musculoskeletal Disorder, Neurologic Disorder, Pneumonia, Renal Disease, Sleep Apnea/CPAP/BIPAP Additional Past Medical History / Comment(s): 08-09-15 admitted with cellulitis of external nose. other pst medical hx includes: hx. 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 ESBL MDRO Source:: MRSA BUTTOCK, ESBL LEG Past Surgical History: Back Surgery, Bowel Resection, Orthopedic Surgery Additional Past Surgical History / Comment(s): multiple surgeries for hydrocephalus, urostomy x 2, multiple hip,leg, foot surgeries, ankles fused, [facility] shunt, pt stated back sx was to remove spina bifida growth, egd Past Anesthesia/Blood Transfusion Reactions: No Reported Reaction Past Psychological History: No Psychological Hx Reported Smoking Status: Never smoker Past Alcohol Use History: None Reported Past Drug Use History: None Reported - Past Family History Father Family Medical History: Hypertension Additional Family Medical History / Comment(s): gout, heart murmur, rheumatic fever as child, tia Mother Family Medical History: Cancer, Hypertension Additional Family Medical History / Comment(s): interstitial cystitis, breast cancer x2, diet controlled diabetic, hiatal hernia Medications and Allergies Home Medications Medication Instructions Recorded Confirmed Type allopurinoL [Zyloprim] 300 mg PO DAILY 10/04/14 09/16/23 History Calcium Carbonate 500 mg PO DAILY 06/09/23 09/16/23 History Cholestyramine (with Sugar) 4 gm PO TID PRN 06/09/23 09/16/23 History [Questran Packet] Lidocaine Viscous 2% [Xylocaine 5 ml PO Q4H PRN 06/09/23 09/16/23 History Viscous] Magnesium Oxide [Mag-Ox] 400 mg PO DAILY 06/09/23 09/16/23 History Menthol [Icy Hot] 2 patch TRANSDERM DAILY 06/09/23 09/16/23 History Thiamine [Vitamin B-1] 100 mg PO DAILY 06/09/23 09/16/23 History Ascorbic Acid [Vitamin C] 500 mg PO DAILY 09/16/23 09/16/23 History Chlorhexidine Gluconate [Peridex] 15 ml PO BID 09/16/23 09/16/23 History Folic Acid 0.4 mg PO BID 09/16/23 09/16/23 History Heparin Lock Flush Solution 50 unit IV Q24H PRN 09/16/23 09/16/23 History 10unit/Ml Heparin Lock Flush Solution 50 units IV QMONTHLY 09/16/23 09/16/23 History 10unit/Ml Lansoprazole [Prevacid] 15 mg PO DAILY 09/16/23 09/16/23 History Levofloxacin [Levaquin] 750 mg PO DAILY@0700 09/16/23 09/16/23 History Multivitamins, Thera [Multivitamin 1 tab PO HS 09/16/23 09/16/23 History (formulary)] Naloxone HCl 0.4 mg IM ONCE PRN 09/16/23 09/16/23 History Naloxone HCl [Narcan] 4 mg NASAL ONCE PRN 09/16/23 09/16/23 History Nutritional Juice 4 oz PO W/BRKFST@0700 09/16/23 09/16/23 History Saccharomyces Boulardii (Unknown 1 cap PO BID 09/16/23 09/16/23 History Strength) Sodium Chloride 0.9 % (Flush) 10 ml IV Q24H PRN 09/16/23 09/16/23 History [Aquastat (Flush)] Sodium Chloride 0.9 % (Flush) 10 ml IV QMONTHLY 09/16/23 09/16/23 History [Aquastat (Flush)] Torsemide [Demadex] 20 mg PO BID@0700,1600 09/16/23 09/16/23 History clindamycin HCL [Cleocin] 600 mg PO QID@05,11,17,23 09/16/23 09/16/23 History Famotidine [Pepcid] 20 mg PO BID #30 tablet 09/18/23 Rx Ferrous Sulfate [Iron (65 MG 325 mg PO BID #0 09/18/23 09/16/23 Rx Elemental)] HYDROcodone/APAP 5-325MG [[place] 1 tab PO Q4H PRN 3 Days #18 tab 09/18/23 Rx 5-325] Morphine Sulfate ER [Ms Contin] 15 mg PO DAILY@1500 #3 tab 09/18/23 Rx Allergies Allergy/AdvReac Type Severity Reaction Status Date / Time amoxicillin trihydrate Allergy Rash/Hives Verified 09/16/23 16:32 [From Augmentin] banana Allergy Unknown Verified 09/16/23 16:32 chestnut Allergy Unknown Verified 09/16/23 16:32 ciprofloxacin [From Cipro] Allergy Rash/Hives Verified 09/16/23 16:32 ciprofloxacin HCl Allergy Rash/Hives Verified 09/16/23 16:32 [From Cipro] kiwi Allergy Unknown Verified 09/16/23 16:32 Latex, Natural Rubber Allergy Anaphylaxis Verified 09/16/23 16:32 methylprednisolone Allergy Rash/Hives Verified 09/16/23 16:32 [From Solu-Medrol] midazolam Allergy Unknown Verified 09/16/23 16:32 nitrofurantoin Allergy Rash/Hives Verified 09/16/23 16:32 macrocrystalline [From Macrodantin] oxacillin Allergy Unknown Verified 09/16/23 16:32 potassium clavulanate Allergy Rash/Hives Verified 09/16/23 16:32 [From Augmentin] Sulfa (Sulfonamide Allergy Rash/Hives, Verified 09/16/23 16:32 Antibiotics) high blood pressure vancomycin Allergy Anaphylaxis Verified 09/16/23 16:32 Beef Containing Products AdvReac Diarrhea Verified 09/16/23 16:32 [Beef] sucralose AdvReac Diarrhea Verified 09/16/23 16:32 [From Splenda (sucralose)] callagen Allergy Rash/Hives Uncoded 09/16/23 14:01 Physical Exam Vitals: Vital Signs Temp Pulse Resp BP Pulse Ox 09/17/23 06:29 16 09/17/23 06:00 97 20 100/71 96 09/17/23 05:00 98 22 104/58 95 09/17/23 04:00 101 H 18 101/64 95 09/17/23 03:00 101 H 22 108/64 95 09/17/23 02:00 101 H 14 106/64 97 09/17/23 00:14 98.6 F 99 16 108/68 96 09/16/23 23:00 98.6 F 98 16 103/60 94 L 09/16/23 22:40 98.6 F 104 H 16 103/60 95 09/16/23 22:30 98.1 F 103 H 18 109/64 99 09/16/23 21:00 110 H 16 126/82 99 09/16/23 19:29 106 H 16 113/69 100 09/16/23 18:00 99 18 110/69 100 09/16/23 13:57 98.0 F 104 H 18 112/71 100 Intake and Output 09/16/23 09/17/23 09/17/23 22:59 06:59 14:59 Intake Total 0 310 Balance 0 310 Intake: Blood Product 0 310 Rc Irr As1 Unit 0 310 [id number] GENERAL DESCRIPTION: Middle-aged female lying in bed, no distress. No tachypnea or accessory muscle of respiration use. HEENT: Shows Pallor , no scleral icterus. Oral mucous membrane is dry. NECK: Trachea central, no thyromegaly. LUNGS: Unlabored breathing. Clear to auscultation anteriorly. No wheeze or crackle. HEART: S1, S2, regular rate and rhythm. No loud murmur ABDOMEN: Soft, no tenderness , EXTREMITIES: Right hip trochanteric area did have a pressure ulcer but no slough tissue no surrounding redness. Patient did have diffuse swelling to bilateral lower extremity SKIN: Patient did have a stage IV pressure ulcer with no slough tissue no surrounding redness or foul-smelling drainage NEUROLOGICAL: The patient is awake, alert, oriented x3, mood and affect normal. Results CBC & Chem 7: 09/18/23 08:39 09/18/23 08:39 Labs: Abnormal Lab Results - Last 24 Hours (Table) 09/16/23 09/16/23 09/16/23 Range/Units 15:07 15:07 20:45 RBC 2.81 L (3.80-5.40) m/uL Hgb 6.6 L* (11.4-16.0) gm/dL Hct 24.1 L (34.0-46.0) % MCH 23.6 L (25.0-35.0) pg MCHC 27.4 L (31.0-37.0) g/dL RDW 18.5 H (11.5-15.5) % Chloride 114 H (98-107) mmol/L Carbon Dioxide 17 L (22-30) mmol/L BUN 48 H (7-17) mg/dL Glucose 150 H (74-99) mg/dL Calcium 8.1 L (8.4-10.2) mg/dL Phosphorus 5.2 H (2.5-4.5) mg/dL Alkaline Phosphatase 156 H (38-126) U/L Albumin 2.6 L (3.5-5.0) g/dL Crossmatch See Detail 09/17/23 Range/Units 05:01 RBC 2.99 L (3.80-5.40) m/uL Hgb 7.5 L (11.4-16.0) gm/dL Hct 26.2 L (34.0-46.0) % MCH (25.0-35.0) pg MCHC 28.6 L (31.0-37.0) g/dL RDW 18.6 H (11.5-15.5) % Chloride (98-107) mmol/L Carbon Dioxide (22-30) mmol/L BUN (7-17) mg/dL Glucose (74-99) mg/dL Calcium (8.4-10.2) mg/dL Phosphorus (2.5-4.5) mg/dL Alkaline Phosphatase (38-126) U/L Albumin (3.5-5.0) g/dL Crossmatch Assessment and Plan (1) Allergy to multiple antibiotics Status: Acute Code(s): Z88.1 - ALLERGY STATUS TO OTHER ANTIBIOTIC AGENTS SNOMED Code(s): 901040597 (2) Pressure injury of right hip, stage 4 Status: Acute Code(s): L89.214 - PRESSURE ULCER OF RIGHT HIP, STAGE 4 SNOMED Code(s): 70206505753348 (3) Pressure injury of sacral region, stage 4 Status: Acute Code(s): L89.154 - PRESSURE ULCER OF SACRAL REGION, STAGE 4 SNOMED Code(s): 43578635691889 Plan: 1patient did have a stage IV sacral pressure ulcer as well as pressure ulcer to the right hip/trochanteric area that has been there for many months and the patient was Admitted to this facility back in May 2023 at that time patient did have evidence of osteomyelitis and the patient was bacteremic source likely infected ulcer for the patient has completed a 6-week course of Invanz, now the patient presented to hospital with low hemoglobin and need for transfusion and apparently the patient did have cultures obtained from the wound about a month ago which did grew 3 different pathogen however on today's evaluation wound base looks clean with no slough tissue no surrounding redness or foul-smelling drainage and the patient is not running any fever white count is normal more likely representing colonization of the wound rather than an active pathogen 2-we will not recommend any systemic antibiotic therapy at this point as clinic suspicion is low for infected wound/osteomyelitis 3-continue local wound care per her wound care physician We will follow on clinical condition and cultures to further adjust medication if needed Thank you for this consultation we will follow the patient along with you Dictation was produced using [employer]ation software. please excuse any grammatical, word or spelling errors. Time with Patient: Greater than 30
[2023-09-18 06:37] LABS: Glucose,Whole Blood 145 mg/dL (70-110)
[2023-09-18] MEDS: MAGNESIUM OXIDE 400 MG TAB PO SCH (07:59)
[2023-09-18] MEDS: FERROUS SULFATE 325 MG TAB PO SCH (07:59)
[2023-09-18] MEDS: THIAMINE 100 MG TAB PO SCH (07:59)
[2023-09-18] MEDS: CALCIUM CARBONATE 500 MG CHEWABLE PO SCH (07:59)
[2023-09-18 09:06] LABS: Anisocytosis Slight; Basophils # (A) 0.1 k/uL (0-0.2); Basophils % (A) 1 %; Eosinophils % (A) 0 %; HGB 7.7 gm/dL (11.4-16.0); Hypochromasia Marked; Lymphocytes # (A) 3.2 k/uL (1.0-4.8); Lymphocytes % (A) 36 %; MCH 24.9 pg (25.0-35.0); MCHC 28.4 g/dL (31.0-37.0); MCV 87.5 fL (80.0-100.0); Mean Platelet Volume 7.5; Monocytes # (A) 0.3 k/uL (0-1.0); Monocytes % (A) 4 %; Neutrophils # (A) 5.3 k/uL (1.3-7.7); Neutrophils % (A) 58 %; Platelet Count 414 k/uL (150-450); Poikilocytosis Slight; RBC 3.09 m/uL (3.80-5.40); RDW 18.7 % (11.5-15.5); WBC 9.1 k/uL (3.8-10.6)
[2023-09-18 09:45] LABS: ALT 11 U/L (4-34); AST 12 U/L (14-36); African American GFR (CKD) >90 (>60 ml/min/1.73 sqM); Albumin 2.5 g/dL (3.5-5.0); Albumin/Globulin Ratio 0.6; Alkaline Phosphatase 135 U/L (38-126); Anion Gap 9 mmol/L; Blood Urea Nitrogen 36 mg/dL (7-17); Calcium 8.4 mg/dL (8.4-10.2); Carbon Dioxide 17 mmol/L (22-30); Chloride 114 mmol/L (98-107); Globulin 4.3 g/dL; Glucose 220 mg/dL (74-99); Non-African American GFR(CKD) >90 (>60 ml/min/1.73 sqM); Potassium 3.8 mmol/L (3.5-5.1); Sodium 140 mmol/L (137-145); Total Bilirubin 0.2 mg/dL (0.2-1.3); Total Protein 6.8 g/dL (6.3-8.2)
--- NOTE | 2023-09-18 12:15 | P.DS ---
Providers Date of admission: 09/16/23 17:23 Expected date of discharge: 09/18/23 Attending physician: Brigido Armenta Consults: 09/17/23 09:28 Consult Physician Routine Consulting Provider: Jania Polo Consult Reason/Comments: Sacral decub, evaluate for need for antibiotics Do you want consulting provider notified?: Yes Primary care physician: [facility] Course: Discharge diagnoses; Anemia Stage IV sacral decub stage IV pressure ulcer to right torchanter Sacral decub and right decubitus ulcer with chronic underlying bony changes likely related to chronic osteomyelitis Hyponatremia Acute on chronic kidney disease Anemia Acute urinary tract infection, present on admission with failed outpatient th erapy Past history of MRSA and ESBL of the wounds recurrent urinary tract infections Asthma history, not in exacerbation Diabetes mellitus, type II, insulin-dependent Gastroesophageal reflux disease Musculoskeletal disorder History of spina bifida with hydrocephalus Sapphire I malformation Chronic renal disease Sleep apnea with a CPAP Hospital course; patient is a 58-year-old lady with past medical history significant for asthma,diabetes mellitus, insulin-dependent, GERD, musculoskeletal disorder, neurologic disorder, and sleep apnea with CPAP, spina bifida and hydrocephalus with Sapphire I malformation history, recurrent UTIs with ESBL along with MRSA of her buttock and leg regions presented to the ER for bleeding from her sacral decub. Patient has been noticing that she has been bleeding from her sacral decub. Patient denies any complaint of lightheaded dizziness. There was no complaint of shortness of breath. Denied chest pain. There was no complaint orthopnea or PND. Patient normally uses wheelchair lives in long term facility. Because of bleeding she came to the ER Initial lab work done in the ER showed WBC 9.9, hemoglobin 6.6, platelet count 446, sodium 140, potassium 4, BUN 48, creatinine 0.82, glucose 150 phosphorus 5.2 alk phos 156 EKG done in the ER showed heart rate of 92, [place] 135, QRS 105, no ST segment elevation or depression seen, no T-wave inversions seen. Patient admitted to internal medicine service 09/17. Patient seen and examined. Patient was evaluated by general surgery, at this time did not recommend any debridement of the sacral decub, recommend wound care. ID also evaluated patient, recommended no IV antibiotics,. Patient hemoglobin stable, patient keen to be discharged back to rehab facility. PHYSICAL EXAMINATION: GENERAL: The patient is alert and oriented x3, not in any acute distress. Well developed, well nourished. HEENT: Pupils are round and equally reacting to light. EOMI. No scleral icterus. No conjunctival pallor. Normocephalic, atraumatic. No pharyngeal erythema. No thyromegaly. CARDIOVASCULAR: S1 and S2 present. No murmurs, rubs, or gallops. PULMONARY: Chest is clear to auscultation, no wheezing or crackles. ABDOMEN: Soft, nontender, nondistended, normoactive bowel sounds. No palpable organomegaly. Urostomy seen MUSCULOSKELETAL: Atrophy of lower extremities seen EXTREMITIES: No cyanosis, clubbing, or pedal edema. NEUROLOGICAL: Gross neurological examination did not reveal any focal deficits. SKIN: Stage IV sacral decub seen. Right trochanteric decub seen Dictation was produced using [employer] dictation software. please excuse any grammatical, word or spelling errors. Patient Condition at Discharge: Fair Plan - Discharge Summary Discharge Rx Participant: No New Discharge Prescriptions: Continue allopurinoL [Zyloprim] 300 mg PO DAILY Calcium Carbonate 500 mg PO DAILY Cholestyramine (with Sugar) [Questran Packet] 4 gm PO TID PRN PRN Reason: BULK STOOL Menthol [Icy Hot] 2 patch TRANSDERM DAILY Magnesium Oxide [Mag-Ox] 400 mg PO DAILY Naloxone HCl 0.4 mg IM ONCE PRN PRN Reason: suspected opioid overdose Heparin Lock Flush Solution 10unit/Ml 50 units IV QMONTHLY Chlorhexidine Gluconate [Peridex] 15 ml PO BID Folic Acid 0.4 mg PO BID Nutritional Juice 4 oz PO W/BRKFST@0700 Lansoprazole [Prevacid] 15 mg PO DAILY Multivitamins, Thera [Multivitamin (formulary)] 1 tab PO HS Levofloxacin [Levaquin] 750 mg PO DAILY@0700 Ascorbic Acid [Vitamin C] 500 mg PO DAILY Morphine Sulfate ER [Ms Contin] 15 mg PO DAILY@1500 #3 tab Lidocaine Viscous 2% [Xylocaine Viscous] 5 ml PO Q4H PRN PRN Reason: Pain Thiamine [Vitamin B-1] 100 mg PO DAILY Sodium Chloride 0.9 % (Flush) [Aquastat (Flush)] 10 ml IV Q24H PRN PRN Reason: prior to heparin Heparin Lock Flush Solution 10unit/Ml 50 unit IV Q24H PRN PRN Reason: every unused lumen clindamycin HCL [Cleocin] 600 mg PO QID@05,11,17,23 Torsemide [Demadex] 20 mg PO BID@0700,1600 Saccharomyces Boulardii (Unknown Strength) 1 cap PO BID Sodium Chloride 0.9 % (Flush) [Aquastat (Flush)] 10 ml IV QMONTHLY Naloxone HCl [Narcan] 4 mg NASAL ONCE PRN PRN Reason: suspected opioid overdose HYDROcodone/APAP 5-325MG [Tropic 5-325] 1 tab PO Q4H PRN 3 Days #18 tab PRN Reason: Pain Changed Ferrous Sulfate [Iron (65 MG Elemental)] 325 mg PO BID #0 Discharge Medication List allopurinoL [Zyloprim] 300 mg PO DAILY 10/04/14 [History] Calcium Carbonate 500 mg PO DAILY 06/09/23 [History] Cholestyramine (with Sugar) [Questran Packet] 4 gm PO TID PRN 06/09/23 [History] Lidocaine Viscous 2% [Xylocaine Viscous] 5 ml PO Q4H PRN 06/09/23 [History] Magnesium Oxide [Mag-Ox] 400 mg PO DAILY 06/09/23 [History] Menthol [Icy Hot] 2 patch TRANSDERM DAILY 06/09/23 [History] Thiamine [Vitamin B-1] 100 mg PO DAILY 06/09/23 [History] Ascorbic Acid [Vitamin C] 500 mg PO DAILY 09/16/23 [History] Chlorhexidine Gluconate [Peridex] 15 ml PO BID 09/16/23 [History] Folic Acid 0.4 mg PO BID 09/16/23 [History] Heparin Lock Flush Solution 10unit/Ml 50 unit IV Q24H PRN 09/16/23 [History] Heparin Lock Flush Solution 10unit/Ml 50 units IV QMONTHLY 09/16/23 [History] Lansoprazole [Prevacid] 15 mg PO DAILY 09/16/23 [History] Levofloxacin [Levaquin] 750 mg PO DAILY@0700 09/16/23 [History] Multivitamins, Thera [Multivitamin (formulary)] 1 tab PO HS 09/16/23 [History] Naloxone HCl 0.4 mg IM ONCE PRN 09/16/23 [History] Naloxone HCl [Narcan] 4 mg NASAL ONCE PRN 09/16/23 [History] Nutritional Juice 4 oz PO W/BRKFST@0700 09/16/23 [History] Saccharomyces Boulardii (Unknown Strength) 1 cap PO BID 09/16/23 [History] Sodium Chloride 0.9 % (Flush) [Aquastat (Flush)] 10 ml IV Q24H PRN 09/16/23 [History] Sodium Chloride 0.9 % (Flush) [Aquastat (Flush)] 10 ml IV QMONTHLY 09/16/23 [History] Torsemide [Demadex] 20 mg PO BID@0700,1600 09/16/23 [History] clindamycin HCL [Cleocin] 600 mg PO QID@05,11,17,23 09/16/23 [History] Ferrous Sulfate [Iron (65 MG Elemental)] 325 mg PO BID #0 09/18/23 [Rx] HYDROcodone/APAP 5-325MG [Tropic 5-325] 1 tab PO Q4H PRN 3 Days #18 tab 09/18/23 [Rx] Morphine Sulfate ER [Ms Contin] 15 mg PO DAILY@1500 #3 tab 09/18/23 [Rx] Follow up Appointment(s)/Referral(s): Barrington Noble DO [Primary Care Provider] - 1-2 days Discharge Disposition: TRANSFER TO SNF/ECF
[2023-09-18 13:44] VITALS: BP 115/70; PULSE 94; RESP 16; TEMP 99; BMI 34.1
--- NOTE | 2023-09-19 15:08 | P.PN ---
Subjective Progress Note Date: 09/18/23 Principal diagnosis: Reason for follow-up is stage IV sacral pressure ulcer Patient is a 58-year-old female with a past medical history significant for diabetes mellitus asthma, spina bifida hydrocephalus chronic bedbound status, patient did have a stage IV sacral pressure ulcer as well as right hip/trochanteric pressure ulcer presented to hospital with lower hemoglo bin and need for transfusion patient also have a cultures obtained from her sacral wound on August 18, 2023 which did grew Pseudomonas Citrobacter and Proteus. On today's evaluation that is 09/18/2023,the patient denies any fever or any chills, patient is breathing comfortably on room air, the patient denies chest pain shortness of breath and no significant cough, patient denies abdominal pain, no nausea vomiting or diarrhea. No new symptoms. Patient did have white count of 9.1, creatinine 0.73 Objective - Vital Signs Vital signs: Vital Signs Temp 98.7 F 09/18/23 07:46 Pulse 97 09/18/23 07:46 Resp 17 09/18/23 07:46 BP 121/73 09/18/23 07:46 Pulse Ox 98 09/18/23 07:46 FiO2 Intake & Output 09/17/23 09/18/23 09/18/23 18:59 06:59 18:59 Output Total 1000 Balance -1000 Weight 150 kg 78 kg Output: Urine 1000 Other: Voiding Method Incontinent Indwelling Catheter # Bowel Movements 2 - Exam GENERAL DESCRIPTION: Middle-aged female lying in bed in no distress RESPIRATORY SYSTEM: Unlabored breathing , decreased breath sounds at bases HEART: S1 S2 regular rate and rhythm , ABDOMEN: Soft , no tenderness EXTREMITIES: Diffuse swelling bilateral lower extremity right fifth toe with no redness or drainage - Labs CBC & Chem 7: 09/18/23 08:39 09/18/23 08:39 Labs: Abnormal Lab Results - Last 24 Hours (Table) 09/17/23 09/17/23 09/17/23 Range/Units 14:58 17:26 20:18 RBC (3.80-5.40) m/uL Hgb (11.4-16.0) gm/dL Hct (34.0-46.0) % MCH (25.0-35.0) pg MCHC (31.0-37.0) g/dL RDW (11.5-15.5) % Chloride (98-107) mmol/L Carbon Dioxide (22-30) mmol/L BUN (7-17) mg/dL Glucose (74-99) mg/dL POC Glucose (mg/dL) 179 H 219 H (70-110) mg/dL Iron 10 L (50-170) UG/DL TIBC 171 L (228-460) UG/DL % Saturation 5.85 L (12.00-45.00) Transferrin 122.0 L (204.0-354.0) mg/dL AST (14-36) U/L Alkaline Phosphatase (38-126) U/L Albumin (3.5-5.0) g/dL 09/18/23 09/18/23 09/18/23 Range/Units 06:36 08:39 08:39 RBC 3.09 L (3.80-5.40) m/uL Hgb 7.7 L (11.4-16.0) gm/dL Hct 27.0 L (34.0-46.0) % MCH 24.9 L (25.0-35.0) pg MCHC 28.4 L (31.0-37.0) g/dL RDW 18.7 H (11.5-15.5) % Chloride 114 H (98-107) mmol/L Carbon Dioxide 17 L (22-30) mmol/L BUN 36 H (7-17) mg/dL Glucose 220 H (74-99) mg/dL POC Glucose (mg/dL) 145 H (70-110) mg/dL Iron (50-170) UG/DL TIBC (228-460) UG/DL % Saturation (12.00-45.00) Transferrin (204.0-354.0) mg/dL AST 12 L (14-36) U/L Alkaline Phosphatase 135 H (38-126) U/L Albumin 2.5 L (3.5-5.0) g/dL Assessment and Plan (1) Pressure injury of right hip, stage 4 Status: Acute Code(s): L89.214 - PRESSURE ULCER OF RIGHT HIP, STAGE 4 SNOMED Code(s): 96742594521894 (2) Pressure injury of sacral region, stage 4 Status: Acute Code(s): L89.154 - PRESSURE ULCER OF SACRAL REGION, STAGE 4 SNOMED Code(s): 28802102972197 Plan: 1patient did have a stage IV sacral pressure ulcer as well as pressure ulcer to the right hip/trochanteric area with a previous episode of osteomyelitis, the patient presented to hospital with low hemoglobin and need for transfusion and apparently the patient did have cultures obtained from the wound about a month ago which did grew 3 different pathogen however on clinical evaluation wound base looks clean with no slough tissue no surrounding redness or foul-smelling drainage and the patient is not running any fever white count is normal more likely representing colonization of the wound rather than an osteomyelitis 2-no need for any antibiotic therapy on discharge apparently the patient was getting Levaquin and Doxy per her longterm physician May continue discussed with the admitting physician working on discharge 3-continue local wound care per her wound care physician Dictation was produced using [employer] dictation software. please excuse any grammatical, word or spelling errors. Time with Patient: Less than 30
== END 2023-09-18 15:03 | DRG 811 ==
LOC: EC 13:37 → 3SCARD 17:23 → 4SSUR 09-17 09:24
PROVIDERS: ADMIT Hospitalist; ATTEND Hospitalist
PROC: 30233N1 Transfusion of Nonautologous Red Blood Cells into Peripheral Vein, Percutaneous Approach (ICD-10-PCS; principal; 2023-09-16)
DX: D50.0 Iron deficiency anemia secondary to blood loss (chronic) (principal); L89.154 Pressure ulcer of sacral region, stage 4; L89.214 Pressure ulcer of right hip, stage 4; L89.313 Pressure ulcer of right buttock, stage 3; E87.1 Hypo-osmolality and hyponatremia; M46.28 Osteomyelitis of vertebra, sacral and sacrococcygeal region; N17.9 Acute kidney failure, unspecified; N39.0 Urinary tract infection, site not specified; Q05.4 Unspecified spina bifida with hydrocephalus; E11.69 Type 2 diabetes mellitus with other specified complication; D63.1 Anemia in chronic kidney disease; Z86.14 Personal history of Methicillin resistant Staphylococcus aureus infection; J45.909 Unspecified asthma, uncomplicated; E11.22 Type 2 diabetes mellitus with diabetic chronic kidney disease; N18.9 Chronic kidney disease, unspecified; Z79.4 Long term (current) use of insulin; G47.30 Sleep apnea, unspecified; K21.9 Gastro-esophageal reflux disease without esophagitis; M10.9 Gout, unspecified; R13.10 Dysphagia, unspecified; L28.0 Lichen simplex chronicus; Z93.6 Other artificial openings of urinary tract status; K44.9 Diaphragmatic hernia without obstruction or gangrene; Z79.899 Other long term (current) drug therapy; Z88.0 Allergy status to penicillin; Z88.1 Allergy status to other antibiotic agents; Z91.040 Latex allergy status; Z88.8 Allergy status to other drugs, medicaments and biological substances; Z88.4 Allergy status to anesthetic agent; Z88.2 Allergy status to sulfonamides; Z99.3 Dependence on wheelchair; Z87.01 Personal history of pneumonia (recurrent); Z98.2 Presence of cerebrospinal fluid drainage device
CPT/HCPCS: 36415; 36430; 80053; 82607; 82728; 82747; 83540; 83550; 83735; 84100; 85025; 86850; 86900; 86901; 86920; 93005; 96374; 96376; 99291

== ENCOUNTER 2024-02-04 11:15 | Emergency (ER) | payer MEDICARE, OTHER ==
[2024-02-04] MEDS ORDERED: SODIUM CHLORIDE 0.9% 500 ML BAG ONE (11:40)
== END 2024-02-05 00:48 | disposition home or self-care (01) ==
LOC: EC 11:15
DX: D64.9 Anemia, unspecified (principal)
CPT/HCPCS: 36430; 86850; 86900; 86901; 93005; 99284

== ENCOUNTER 2024-02-14 13:13 | Inpatient (IN) | payer MEDICARE, OTHER ==
[2024-02-14] MEDS: NOREPINEPHRINE 32 MG in SODIUM CHLORIDE 0.9% 218 ML IV ONE (13:53)
[2024-02-14] MEDS: SODIUM CHLORIDE 0.9% 1,000 ML IV STA ×3 (14:09→16:10)
[2024-02-14] MEDS: SODIUM CHLORIDE 0.9% 632 ML IV STA (14:10)
--- NOTE | 2024-02-14 14:15 | ED ---
General Adult HPI - General Chief complaint: Altered Mental Status Stated complaint: AMS/Hypotension Time Seen by Provider: 02/14/24 13:19 Source: patient, EMS Mode of arrival: EMS Limitations: altered mental status, physical limitation - History of Present Illness Initial comments: Dictation was produced using [employer] dictation software. please excuse any grammatical, word or spelling errors. Chief Complaint: 58-year-old female presents to the ER for altered mental status and hypotension History of Present Illness: Patient is a 58-year-old female she was brought in from local long term. Patient has significant debility history. Per EMS patient was found to be altered lethargic. EMS states that patient's blood pressure has significantly low on initial evaluation with a systolic measuring in the 70s. Patient received 500 cc of IV fluids prior to arrival Unable to obtain ROS secondary to mental status - Related Data Home Medications Medication Instructions Recorded Confirmed allopurinoL [Zyloprim] 300 mg PO DAILY 10/04/14 02/14/24 Calcium Carbonate 500 mg PO DAILY 06/09/23 02/14/24 Cholestyramine (with Sugar) 4 gm PO TID PRN 06/09/23 02/14/24 [Questran Packet] Lidocaine Viscous 2% [Xylocaine 5 ml PO Q4H PRN 06/09/23 02/14/24 Viscous] Magnesium Oxide [Mag-Ox] 400 mg PO DAILY 06/09/23 02/14/24 Menthol [Icy Hot] 2 patch TRANSDERM DAILY 06/09/23 02/14/24 Thiamine [Vitamin B-1] 100 mg PO DAILY 06/09/23 02/14/24 Ascorbic Acid [Vitamin C] 500 mg PO HS 09/16/23 02/14/24 Folic Acid 0.4 mg PO BID 09/16/23 02/14/24 Heparin Lock Flush Solution 50 unit IV Q24H PRN 09/16/23 02/14/24 10unit/Ml Heparin Lock Flush Solution 50 units IV QMONTHLY 09/16/23 02/14/24 10unit/Ml Multivitamins, Thera [Multivitamin 1 tab PO HS 09/16/23 02/14/24 (formulary)] Naloxone HCl 0.4 mg IM ONCE PRN 09/16/23 02/14/24 Naloxone HCl [Narcan] 4 mg NASAL ONCE PRN 09/16/23 02/14/24 Saccharomyces Boulardii (Unknown 1 cap PO BID 09/16/23 02/14/24 Strength) Sodium Chloride 0.9 % (Flush) 10 ml IV Q24H PRN 09/16/23 02/14/24 [Aquastat (Flush)] Sodium Chloride 0.9 % (Flush) 10 ml IV QMONTHLY 09/16/23 02/14/24 [Aquastat (Flush)] Torsemide [Demadex] 60 mg PO DAILY@0700 09/16/23 02/14/24 Butalb/Acetaminophen/Caffeine 1 cap PO Q4HR PRN 02/14/24 02/14/24 [Fioricet 50-300-40 mg Capsule] Darbepoetin Dino [Aranesp] 100 mcg SQ Q14D 02/14/24 02/14/24 Famotidine [Pepcid] 20 mg PO BID@0700,1900 02/14/24 02/14/24 Ferrous Sulfate [Iron (65 MG 325 mg PO DAILY 02/14/24 02/14/24 Elemental)] HYDROcodone/APAP 5-325MG [[place] 1 tab PO Q4H 02/14/24 02/14/24 5-325] Menthol [Biofreeze] 1 applic TOPICAL TID@0700,1300,1900 02/14/24 02/14/24 Ondansetron [Zofran] 4 mg PO Q6H PRN 02/14/24 02/14/24 Previous Rx's Medication Instructions Recorded Morphine Sulfate ER [Ms Contin] 15 mg PO DAILY@1500 #3 tab 09/18/23 Allergies Allergy/AdvReac Type Severity Reaction Status Date / Time amoxicillin trihydrate Allergy Rash/Hives Verified 02/14/24 14:04 [From Augmentin] banana Allergy Unknown Verified 02/14/24 14:04 chestnut Allergy Unknown Verified 02/14/24 14:04 ciprofloxacin [From Cipro] Allergy Rash/Hives Verified 02/14/24 14:04 ciprofloxacin HCl Allergy Rash/Hives Verified 02/14/24 14:04 [From Cipro] Collagenase Clostridium Allergy Rash/Hives Verified 02/14/24 14:04 histolyticu kiwi Allergy Unknown Verified 02/14/24 14:04 Latex, Natural Rubber Allergy Anaphylaxis Verified 02/14/24 14:04 methylprednisolone Allergy Rash/Hives Verified 02/14/24 14:04 [From Solu-Medrol] midazolam Allergy Unknown Verified 02/14/24 14:04 nitrofurantoin Allergy Rash/Hives Verified 02/14/24 14:04 macrocrystalline [From Macrodantin] oxacillin Allergy Unknown Verified 02/14/24 14:04 potassium clavulanate Allergy Rash/Hives Verified 02/14/24 14:04 [From Augmentin] Sulfa (Sulfonamide Allergy Rash/Hives, Verified 02/14/24 14:04 Antibiotics) high blood pressure vancomycin Allergy Anaphylaxis Verified 02/14/24 14:04 Beef Containing Products AdvReac Diarrhea Verified 02/14/24 14:04 [Beef] sucralose AdvReac Diarrhea Verified 02/14/24 14:04 [From Splenda (sucralose)] COLLAGEN Allergy Rash/Hives Uncoded 02/14/24 14:04 Review of Systems ROS Statement: Those systems with pertinent positive or pertinent negative responses have been documented in the HPI. ROS Other: All systems not noted in ROS Statement are negative. Past Medical History Past Medical History: Asthma, Diabetes Mellitus, GERD/Reflux, Musculoskeletal Disorder, Neurologic Disorder, Pneumonia, Renal Disease, Sleep Apnea/CPAP/BIPAP Additional Past Medical History / Comment(s): 08-09-15 admitted with cellulitis of external nose. other pst medical hx includes: hx. 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, MRSA Date of last positivie culture/infection: 07/07/21 MRSA 01/07/15 ESBL MDRO Source:: MRSA BUTTOCK, ESBL LEG Past Surgical History: Back Surgery, Bowel Resection, Orthopedic Surgery Additional Past Surgical History / Comment(s): multiple surgeries for hydr ocephalus, urostomy x 2, multiple hip,leg, foot surgeries, ankles fused, [facility] shunt, pt stated back sx was to remove spina bifida growth, egd Past Anesthesia/Blood Transfusion Reactions: No Reported Reaction Past Psychological History: No Psychological Hx Reported Smoking Status: Never smoker Past Alcohol Use History: None Reported Past Drug Use History: None Reported - Past Family History Father Family Medical History: Hypertension Additional Family Medical History / Comment(s): gout, heart murmur, rheumatic fever as child, tia Mother Family Medical History: Cancer, Hypertension Additional Family Medical History / Comment(s): interstitial cystitis, breast cancer x2, diet controlled diabetic, hiatal hernia General Exam - General Exam Comments Initial Comments: PHYSICAL EXAM: General Impression: Lethargic, pale, nonsensical speech HEENT: Normocephalic atraumatic, extra-ocular movements intact, pupils equal and reactive to light bilaterally, dry mucous membranes Cardiovascular: Tachycardic Chest: Able to complete full sentences, no retractions, no tachypnea Abdomen: abdomen soft, non-tender, non-distended, no organomegaly Musculoskeletal: Pulses present and equal in all extremities, no peripheral edema Motor: no focal deficits noted Neurological: CN II-XII grossly intact, no focal motor or sensory deficits noted Skin: pallor Limitations: altered mental status, physical limitation Course Vital Signs 02/14/24 02/14/24 02/14/24 13:15 14:06 14:11 Temperature 98.5 F Pulse Rate 102 H 105 H 101 H Respiratory 17 24 20 Rate Blood Pressure 91/45 93/39 99/44 O2 Sat by Pulse 95 95 96 Oximetry 02/14/24 02/14/24 02/14/24 14:37 14:45 15:01 Temperature Pulse Rate 96 93 98 Respiratory 20 20 18 Rate Blood Pressure 95/49 101/53 97/51 O2 Sat by Pulse 97 96 96 Oximetry - Reevaluation(s) Reevaluation #1: 02/14/24 14:14 Patient is altered however further information was obtained from patient's mother, Dang botello. She is listed as person to notify. States that she does confirm that patient made herself DNR recently after having conversation with the network desktop support specialist. Risk and benefits were discussed with mother regarding central venous catheter placement. She did feel that that was a reasonable option. Central venous catheter line was placed. Patient however is reportedly DNR and DNI. EKG Findings - EKG Comments: EKG Findings:: My EKG interpretation: Ventricular rate 102, sinus tachycardia,. 127, QRS 80, QTc 4 3. No TX prolongation, no QTC prolongation, no ST or T-wave changes noted. Overall, this EKG is unremarkable Procedures - Central Line Placement Left Femoral Consent Obtained: verbal consent, emergent situation Patient Placed on Monitor/Pulse Ox: Yes MD Prep: mask, gown, gloves Central Line Prep: Chlorhexidine scrub Local Anesthesia Used: Lidocaine 2%, with Epi Amount of Anesthesia Used (mls): 5 Ultrasound Used for Placement: Yes Central Line Lumen Inserted: triple Bloods Obtained for Lab: Yes Central Line Position: good blood return Dressing Applied: Tegaderm Post Procedure X-Ray: tip of catheter in good position Patient Tolerated Procedure: well Complications: none - Sepsis Sepsis Focused Exam #1 Time Sepsis Criteria Met: 15:16 Sepsis Focused Exam Date: 01/21/24 Sepsis Focused Exam Time: 15:16 Sepsis Focused Exam Complete: Yes Vital Signs & RN Notes Reviewed: Yes Capillary Refill: < 2 Seconds: Fingers, Toes Peripheral Pulses: Weak: Radial (R), Radial (L), Posterior Tibialis (R), Posterior Tibialis (L), Dorsalis Pedis (R), Dorsalis Pedis (L) Skin Color: Ashen Respiratory Exam: normal lung sounds Cardiovascular Exam: regular rate Medical Decision Making - Medical Decision Making Was pt. sent in by a medical professional or institution (Dr. PA, HAT BRAIDER, urgent care, hospital, or long term...) When possible be specific @ -No Did you speak to anyone other than the patient for history (EMS, parent, family, police, friend...)? What history was obtained from this source @ -EMS Did you review nursing and triage notes (agree or disagree)? Why? @ -I reviewed and agree with nursing and triage notes Were old charts reviewed (outside hosp., previous admission, EMS record, old EKG, old radiological studies, urgent care reports/EKG's, long term records)? Report findings @ -Previous documentation shows patient has history of neurologic disease causing debility Differential Diagnosis (chest pain, altered mental status, abdominal pain women, abdominal pain men, vaginal bleeding, musculoskeletal, weakness, fever, dyspnea, syncope, headache, dizziness, GI bleed, back pain, seizure, CVA, palpatations, mental health)? @ -Differential Weakness: Hypoglycemia, shock, sepsis, hyponatremia, anemia, infection, MA, ETOH, adverse medicine reaction, overdose, stroke, this is not meant to be an all-inclusive list. Differential Altered Mental Status: Hypoglycemia, DKA, hypercapnia, ETOH, overdose, CO poisoning, trauma, myxedema coma, HTN encephalopathy, infection, encephalitis, psychosis, intercranial hemorrhage, hepatic encephalopathy, meningitis, CVA, this is not meant to be an all-inclusive list EKG interpreted by me (3pts min.). @ -See above X-rays interpreted by me (1pt min.). @ -Checks x-ray shows pulmonary vascular congestion CT interpreted by me (1pt min.). @ -None done U/S interpreted by me (1pt. min.). @ -None done What testing was considered but not performed or refused? (CT, X-rays, U/S, labs)? Why? @ -None What meds were considered but not given or refused? Why? @ -None Was smoking cessation discussed for >3mins.? @ -No Were there social determinants of health that impacted care today? How? (Homelessness, low income, unemployed, alcoholism, drug addiction, transportation, low edu. Level, literacy, decrease access to med. care, fpc, rehab)? @ -Debility Was there de-escalation of care discussed even if they declined (Discuss DNR or withdrawal of care, Hospice)? DNR status @ -Mother confirms DNR status What co-morbidities impacted this encounter? (DM, HTN, Smoking, COPD, CAD, Cancer, CVA, ARF, Chemo, Hep., AIDS, mental health diagnosis, sleep apnea, morbid obesity)? @ -Spina bifida Was patient admitted / discharged? Hospital course, mention meds given and route, prescriptions, significant lab abnormalities, going to OR and other pertinent info. @ -58-year-old debilitated female transferred from long term for hypotension altered mental status. Vital signs upon arrival are tachycardic low blood pressure 93/39. Intravenous catheter was placed for concerns of sepsis given that patient is ill-appearing laboratory evaluation obtained. Anemia of 6.8. Iron deficiency. Leg panel is negative. Metabolic panel shows creatinine of 2.03 with a BUN of 108. Urinalysis shows UTI. Patient started on antibiotics. Given 30 cc/kg bolus. Clinical presentation concerning for sepsis. Sepsis identified at 2 PM Did you discuss the management of the patient with other professionals (soledad ve[place] irazia Bustos, PA, HAT BRAIDER, lab, RT, psych nurse, social media community manager, holistic nutritionist, teacher, correctional officer captain, oil field caser)? Give summary @ -Case discussed with station repairer and hospitalist for ICU admission Was critical care preformed (if so, how long)? @ -Yes, 77 minutes Undiagnosed new problem with uncertain prognosis? @ -No Drug Therapy requiring intensive monitoring for toxicity (Heparin, Nitro, Insulin, Cardizem)? @ -No Were any procedures done? @ -No Diagnosis/symptom? Acute, or Chronic, or Acute on Chronic? Uncomplicated (without systemic symptoms) or Complicated (systemic symptoms)? @ -UTI sepsis Side effects of treatment? @ -No Exacerbation, Progression, or Severe Exacerbation? @ -No Poses a threat to life or bodily function? How? (Chest pain, [place], MA, pneumonia, PE, COPD, DKA, ARF, appy, cholecystitis, CVA, Diverticulitis, Homicidal, Suicidal, threat to staff... and all critical care pts) @ -yes - Lab Data Result diagrams: 02/14/24 13:58 02/14/24 13:58 Lab Results 02/14/24 02/14/24 02/14/24 Range/Units 13:58 13:58 13:58 WBC 8.1 (3.8-10.6) k/uL RBC 2.84 L (3.80-5.40) m/uL Hgb 6.8 L* (11.4-16.0) gm/dL Hct 23.2 L (34.0-46.0) % MCV 81.7 (80.0-100.0) fL MCH 24.0 L (25.0-35.0) pg MCHC 29.3 L (31.0-37.0) g/dL RDW 20.1 H (11.5-15.5) % Plt Count 488 H (150-450) k/uL MPV 7.2 Neutrophils % 67 % Lymphocytes % 22 % Monocytes % 6 % Eosinophils % 1 % Basophils % 0 % Neutrophils # 5.5 (1.3-7.7) k/uL Lymphocytes # 1.8 (1.0-4.8) k/uL Monocytes # 0.5 (0-1.0) k/uL Eosinophils # 0.0 (0-0.7) k/uL Basophils # 0.0 (0-0.2) k/uL Hypochromasia Marked Poikilocytosis Slight Anisocytosis Moderate Microcytosis Slight PT 11.0 (10.0-12.5) sec INR 1.0 (<1.2) APTT 27.5 (22.0-30.0) sec Sodium 139 (137-145) mmol/L Potassium 5.6 H (3.5-5.1) mmol/L Chloride 117 H (98-107) mmol/L Carbon Dioxide 10 L (22-30) mmol/L Anion Gap 12 mmol/L BUN 108 H* (7-17) mg/dL Creatinine 2.03 H (0.52-1.04) mg/dL Est GFR (CKD-EPI)AfAm 31 (>60 ml/min/1.73 sqM) Est GFR (CKD-EPI)NonAf 27 (>60 ml/min/1.73 sqM) Glucose 107 H (74-99) mg/dL Plasma Lactic Acid [place] (0.7-2.0) mmol/L Calcium 7.7 L (8.4-10.2) mg/dL Magnesium 2.1 (1.6-2.3) mg/dL Total Bilirubin 0.3 (0.2-1.3) mg/dL AST 32 (14-36) U/L ALT 25 (4-34) U/L Alkaline Phosphatase 456 H (38-126) U/L Troponin I (0.000-0.034) ng/mL Total Protein 6.8 (6.3-8.2) g/dL Albumin 2.4 L (3.5-5.0) g/dL Urine Color Urine Appearance (Clear) Urine pH (5.0-8.0) Ur Specific [place] (1.001-1.035) Urine Protein (Negative) Urine Glucose (UA) (Negative) Urine Ketones (Negative) Urine Blood (Negative) Urine Nitrite (Negative) Urine Bilirubin (Negative) Urine Urobilinogen (<2.0) mg/dL Ur Leukocyte Esterase (Negative) Urine RBC (0-5) /hpf Urine WBC (0-5) /hpf Urine WBC Clumps (None) /hpf Ur Squamous Epith Cells (0-4) /hpf Urine Bacteria (None) /hpf Urine Mucus (None) /hpf 02/14/24 02/14/24 02/14/24 Range/Units 13:58 13:58 13:58 WBC (3.8-10.6) k/uL RBC (3.80-5.40) m/uL Hgb (11.4-16.0) gm/dL Hct (34.0-46.0) % MCV (80.0-100.0) fL MCH (25.0-35.0) pg MCHC (31.0-37.0) g/dL RDW (11.5-15.5) % Plt Count (150-450) k/uL MPV Neutrophils % % Lymphocytes % % Monocytes % % Eosinophils % % Basophils % % Neutrophils # (1.3-7.7) k/uL Lymphocytes # (1.0-4.8) k/uL Monocytes # (0-1.0) k/uL Eosinophils # (0-0.7) k/uL Basophils # (0-0.2) k/uL Hypochromasia Poikilocytosis Anisocytosis Microcytosis PT (10.0-12.5) sec INR (<1.2) APTT (22.0-30.0) sec Sodium (137-145) mmol/L Potassium (3.5-5.1) mmol/L Chloride (98-107) mmol/L Carbon Dioxide (22-30) mmol/L Anion Gap mmol/L BUN (7-17) mg/dL Creatinine (0.52-1.04) mg/dL Est GFR (CKD-EPI)AfAm (>60 ml/min/1.73 sqM) Est GFR (CKD-EPI)NonAf (>60 ml/min/1.73 sqM) Glucose (74-99) mg/dL Plasma Lactic Acid [place] 0.7 (0.7-2.0) mmol/L Calcium (8.4-10.2) mg/dL Magnesium (1.6-2.3) mg/dL Total Bilirubin (0.2-1.3) mg/dL AST (14-36) U/L ALT (4-34) U/L Alkaline Phosphatase (38-126) U/L Troponin I <0.012 (0.000-0.034) ng/mL Total Protein (6.3-8.2) g/dL Albumin (3.5-5.0) g/dL Urine Color Yellow Urine Appearance Turbid H (Clear) Urine pH 6.0 (5.0-8.0) Ur Specific [place] 1.018 (1.001-1.035) Urine Protein 2+ H (Negative) Urine Glucose (UA) Negative (Negative) Urine Ketones Negative (Negative) Urine Blood Small H (Negative) Urine Nitrite Negative (Negative) Urine Bilirubin Negative (Negative) Urine Urobilinogen <2.0 (<2.0) mg/dL Ur Leukocyte Esterase Large H (Negative) Urine RBC 56 H (0-5) /hpf Urine WBC >182 H (0-5) /hpf Urine WBC Clumps Many H (None) /hpf Ur Squamous Epith Cells 2 (0-4) /hpf Urine Bacteria Few H (None) /hpf Urine Mucus Few H (None) /hpf Disposition Clinical Impression: Sepsis secondary to UTI, Anemia Disposition: ADMITTED IP TO THIS [facility] Condition: Critical Referrals: Hilaria Reeder DO [Primary Care Provider] - 1-2 days Decision Time: 15:17
[2024-02-14 14:17] LABS: Anisocytosis Moderate; Basophils % (A) 0 %; Eosinophils % (A) 1 %; HCT 23.2 % (34.0-46.0); Hypochromasia Marked; Lymphocytes # (A) 1.8 k/uL (1.0-4.8); Lymphocytes % (A) 22 %; MCHC 29.3 g/dL (31.0-37.0); MCV 81.7 fL (80.0-100.0); Mean Platelet Volume 7.2; Microcytosis Slight; Monocytes # (A) 0.5 k/uL (0-1.0); Monocytes % (A) 6 %; Neutrophils # (A) 5.5 k/uL (1.3-7.7); Neutrophils % (A) 67 %; Platelet Count 488 k/uL (150-450); Poikilocytosis Slight; RBC 2.84 m/uL (3.80-5.40); RDW 20.1 % (11.5-15.5); WBC 8.1 k/uL (3.8-10.6)
[2024-02-14 14:25] LABS: Appearance,Urine Turbid (Clear); Bacteria,Urine Few /hpf; Bilirubin,Urine Negative (Negative); Blood,Urine Small (Negative); Color,Urine Yellow; Glucose,Urine (UA) Negative (Negative); Ketones,Urine Negative (Negative); Leukocyte Esterase,Urine Large (Negative); Mucus,Urine Few /hpf; Nitrite,Urine Negative (Negative); Protein,Urine 2+ (Negative); RBC,Urine 56 /hpf (0-5); Specific Gravity,Urine 1.018 (1.001-1.035); Squamous Epithelial Cell,Urine 2 /hpf (0-4); Urobilinogen,Urine <2.0 mg/dL (<2.0); WBC,Urine >182 /hpf (0-5)
[2024-02-14 14:26] LABS: Partial Thromboplastin Time 27.5 sec (22.0-30.0)
[2024-02-14 14:28] LABS: HGB 6.8 gm/dL (11.4-16.0)
--- NOTE | 2024-02-14 14:29 | XR ---
EXAMINATION TYPE: XR chest 1V portable DATE OF EXAM: 02/14/2024 COMPARISON: 06/10/2022 HISTORY: Hypotension TECHNIQUE: Single frontal view of the chest is obtained. FINDINGS: There is mild pulmonary vascular congestion. No airspace consolidation. There is a Mediport catheter on the right. There is a central venous catheter entering the left jugul ar vein and terminating in the SVC/RA junction. There is no pneumothorax or pleural effusion. The osseous structures are intact. IMPRESSION: Mild pulmonary vascular congestion
[2024-02-14 14:30] LABS: ALT 25 U/L (4-34); AST 32 U/L (14-36); African American GFR (CKD) 31 (>60 ml/min/1.73 sqM); Albumin 2.4 g/dL (3.5-5.0); Alkaline Phosphatase 456 U/L (38-126); Anion Gap 12 mmol/L; Calcium 7.7 mg/dL (8.4-10.2); Carbon Dioxide 10 mmol/L (22-30); Chloride 117 mmol/L (98-107); Glucose 107 mg/dL (74-99); Magnesium 2.1 mg/dL (1.6-2.3); Non-African American GFR(CKD) 27 (>60 ml/min/1.73 sqM); Potassium 5.6 mmol/L (3.5-5.1); Sodium 139 mmol/L (137-145); Total Bilirubin 0.3 mg/dL (0.2-1.3); Total Protein 6.8 g/dL (6.3-8.2)
[2024-02-14] MEDS: CEFEPIME 2 GM in SODIUM CHLORIDE 0.9% 100 ML IVPB STA (14:40)
[2024-02-14 14:53] LABS: Blood Urea Nitrogen 108 mg/dL (7-17)
[2024-02-14] MEDS ORDERED: NALOXONE 0.4 MG/ML 1 ML VIAL IV PRN (15:11)
[2024-02-14] MEDS ORDERED: ACETAMINOPHEN SUPPOSITORY 650 MG SUPP RECTAL PRN (15:11)
[2024-02-14] MEDS: PANTOPRAZOLE 40 MG/10 ML VIAL IV SCH (16:09)
[2024-02-14] MEDS: MORPHINE SULFATE 2 MG/ML SYRINGE IV PRN (17:14)
[2024-02-14 17:54] LABS: Glucose,Whole Blood 144 mg/dL (70-110)
[2024-02-14] MEDS: MEROPENEM 1 GM in SODIUM CHLORIDE 0.9% 100 ML IVPB SCH ×2 (18:18→19:43)
[2024-02-15] MEDS: DEXTROSE 5% IN WATER 1,000 ML with SODIUM BICARB (1 MEQ/ML) 150 ML IV SCH (00:54)
[2024-02-15 01:14] LABS: Anisocytosis Slight; HCT 27.9 % (34.0-46.0); Hypochromasia Marked; MCH 24.5 pg (25.0-35.0); MCHC 28.8 g/dL (31.0-37.0); Mean Platelet Volume 7.4; Microcytosis Slight; Platelet Count 523 k/uL (150-450); Poikilocytosis Slight; RBC 3.28 m/uL (3.80-5.40); RDW 19.8 % (11.5-15.5); WBC 12.2 k/uL (3.8-10.6)
[2024-02-15] MEDS ORDERED: DEXTROSE 50% SYRINGE 50 ML IVP PRN ×2 (01:49)
--- NOTE | 2024-02-15 01:49 | P.CNPUL ---
History of Present Illness Consult date: 02/15/24 Requesting physician: Alexis Pineda Reason for consult: other (ICU management) Chief complaint: Altered mental status History of present illness: Patient is a 58-year-old white female with multiple medical comorbidities including spina bifida, paraplegia, hydrocephalus, Chiari malformation, VA shunt, Gates's palsy, urostomy, recurrent urinary tract infections, chronic kidney disease, dysphagia, diabetes mellitus, paraplegia and is bedbound. She does have a chronic sacral decubitus pressure ulcer as well. She resides at [facility]. At the outside facility, she was noted to be lethargic and confused. Blood pressure was noted to be significantly hypotensive with a systolic pressure of 70 mmHg. She was sent into the emergency department for evaluation. UA concerning for possible urinary tract infection. She was started on empiric antibiotics including meropenem by infectious disease specialist, she has history of MDRO infections. She is currently in room 255, she remains lethargic and confused. Able to follow simple commands and answer some orientation questions. She is overall a poor historian. No specific complaints from the patient. She is on room air. SpO2 reading 96%. CXR showing mild pulmonary vascular congestion. No focal infiltrates noted. Normal sinus rhythm on bedside monitor. As far as the patient's hypotension, she is fluid resuscitated with a total of 2 L normal saline bolus. She was then started on vasopressors, currently requiring norepinephrine which is infusing at 0.07 mcg/kg/min. Normal saline continues to infuse at 130 mL/h. She has urostomy, and is making adequate urine output. She has a rather large sacral decubitus pressure ulcer, mostly granulation tissue. The appropriate cultures are pending. Most recent CBC: WBC count 12, hemoglobin 8, hematocrit 27.9, platelets 523. Her hemoglobin was 6.8 g/dL on arrival, and she is status post 1 unit PRBCs. No overt signs of acute blood loss. She is known to have chronic anemia. CMP: Sodium 139, potassium 5.6, chloride 117, serum bicarb 10, BUN 108, creatinine 2.03, glucose 107. Lactic 0.7. AST 32, ALT 25, ALP 456. Total bilirubin 0.3. Troponin less than 0.012. Urinalysis positive for leukocyte esterase and few bacteria. Patient is a DO NOT RESUSCITATE/DO NOT INTUBATE status. This was reportedly verified by the ER physician with family prior to admission. Overall prognosis is guarded secondary to above-mentioned comorbidities. Review of Systems ROS unobtainable: due to mental status Past Medical History Past Medical History: Asthma, Diabetes Mellitus, GERD/Reflux, Musculoskeletal Disorder, Neurologic Disorder, Pneumonia, Renal Disease, Sleep Apnea/CPAP/BIPAP Additional Past Medical History / Comment(s): 08-09-15 admitted with cellulitis of external nose. other pst medical hx includes: hx. 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, MRSA Date of last positivie culture/infection: 07/07/21 MRSA 01/07/15 ESBL MDRO Source:: MRSA BUTTOCK, ESBL LEG Past Surgical History: Back Surgery, Bowel Resection, Orthopedic Surgery Additional Past Surgical History / Comment(s): multiple surgeries for hydrocephalus, urostomy x 2, multiple hip,leg, foot surgeries, ankles fused, VA shunt, pt stated back sx was to remove spina bifida growth, egd Past Anesthesia/Blood Transfusion Reactions: No Reported Reaction Past Psychological History: No Psychological Hx Reported Additional Psychological History / Comment(s): pt lives alone at [facility],gets around by w/ able to stand and pivot and drives. does have visiting nurses wed-,wednesday. Smoking Status: Never smoker Past Alcohol Use History: None Reported Past Drug Use History: None Reported - Past Family History Father Family Medical History: Hypertension Additional Family Medical History / Comment(s): gout, heart murmur, rheumatic fever as child, tia Mother Family Medical History: Cancer, Hypertension Additional Family Medical History / Comment(s): interstitial cystitis, breast cancer x2, diet controlled diabetic, hiatal hernia Medications and Allergies Home Medications Medication Instructions Recorded Confirmed Type allopurinoL [Zyloprim] 300 mg PO DAILY 10/04/14 02/14/24 History Calcium Carbonate 500 mg PO DAILY 06/09/23 02/14/24 History Cholestyramine (with Sugar) 4 gm PO TID PRN 06/09/23 02/14/24 History [Questran Packet] Lidocaine Viscous 2% [Xylocaine 5 ml PO Q4H PRN 06/09/23 02/14/24 History Viscous] Magnesium Oxide [Mag-Ox] 400 mg PO DAILY 06/09/23 02/14/24 History Menthol [Icy Hot] 2 patch TRANSDERM DAILY 06/09/23 02/14/24 History Thiamine [Vitamin B-1] 100 mg PO DAILY 06/09/23 02/14/24 History Ascorbic Acid [Vitamin C] 500 mg PO HS 09/16/23 02/14/24 History Folic Acid 0.4 mg PO BID 09/16/23 02/14/24 History Heparin Lock Flush Solution 50 unit IV Q24H PRN 09/16/23 02/14/24 History 10unit/Ml Heparin Lock Flush Solution 50 units IV QMONTHLY 09/16/23 02/14/24 History 10unit/Ml Multivitamins, Thera [Multivitamin 1 tab PO HS 09/16/23 02/14/24 History (formulary)] Naloxone HCl 0.4 mg IM ONCE PRN 09/16/23 02/14/24 History Naloxone HCl [Narcan] 4 mg NASAL ONCE PRN 09/16/23 02/14/24 History Saccharomyces Boulardii (Unknown 1 cap PO BID 09/16/23 02/14/24 History Strength) Sodium Chloride 0.9 % (Flush) 10 ml IV Q24H PRN 09/16/23 02/14/24 History [Aquastat (Flush)] Sodium Chloride 0.9 % (Flush) 10 ml IV QMONTHLY 09/16/23 02/14/24 History [Aquastat (Flush)] Torsemide [Demadex] 60 mg PO DAILY@0700 09/16/23 02/14/24 History Morphine Sulfate ER [Ms Contin] 15 mg PO DAILY@1500 #3 tab 09/18/23 02/14/24 Rx Butalb/Acetaminophen/Caffeine 1 cap PO Q4HR PRN 02/14/24 02/14/24 History [Fioricet 50-300-40 mg Capsule] Darbepoetin Dino [Aranesp] 100 mcg SQ Q14D 02/14/24 02/14/24 History Famotidine [Pepcid] 20 mg PO BID@0700,1900 02/14/24 02/14/24 History Ferrous Sulfate [Iron (65 MG 325 mg PO DAILY 02/14/24 02/14/24 History Elemental)] HYDROcodone/APAP 5-325MG [[place]rem 1 tab PO Q4H 02/14/24 02/14/24 History 5-325] Menthol [Biofreeze] 1 applic TOPICAL TID@0700,1300,1900 02/14/24 02/14/24 History Ondansetron [Zofran] 4 mg PO Q6H PRN 02/14/24 02/14/24 History Allergies Allergy/AdvReac Type Severity Reaction Status Date / Time amoxicillin trihydrate Allergy Rash/Hives Verified 02/14/24 14:04 [From Augmentin] banana Allergy Unknown Verified 02/14/24 14:04 chestnut Allergy Unknown Verified 02/14/24 14:04 ciprofloxacin [From Cipro] Allergy Rash/Hives Verified 02/14/24 14:04 ciprofloxacin HCl Allergy Rash/Hives Verified 02/14/24 14:04 [From Cipro] Collagenase Clostridium Allergy Rash/Hives Verified 02/14/24 14:04 histolyticu kiwi Allergy Unknown Verified 02/14/24 14:04 Latex, Natural Rubber Allergy Anaphylaxis Verified 02/14/24 14:04 methylprednisolone Allergy Rash/Hives Verified 02/14/24 14:04 [From Solu-Medrol] midazolam Allergy Unknown Verified 02/14/24 14:04 nitrofurantoin Allergy Rash/Hives Verified 02/14/24 14:04 macrocrystalline [From Macrodantin] oxacillin Allergy Unknown Verified 02/14/24 14:04 potassium clavulanate Allergy Rash/Hives Verified 02/14/24 14:04 [From Augmentin] Sulfa (Sulfonamide Allergy Rash/Hives, Verified 02/14/24 14:04 Antibiotics) high blood pressure vancomycin Allergy Anaphylaxis Verified 02/14/24 14:04 Beef Containing Products AdvReac Diarrhea Verified 02/14/24 14:04 [Beef] sucralose AdvReac Diarrhea Verified 02/14/24 14:04 [From Splenda (sucralose)] COLLAGEN Allergy Rash/Hives Uncoded 02/14/24 14:04 Physical Exam Vitals: Vital Signs Temp Pulse Resp BP Pulse Ox 02/15/24 00:30 99 18 97/45 96 02/15/24 00:15 87 21 105/49 96 02/15/24 00:00 89 16 107/48 96 02/14/24 23:45 92 17 113/52 96 02/14/24 23:30 90 15 118/78 96 02/14/24 23:15 95 25 H 104/53 98 02/14/24 23:00 93 18 99/46 95 02/14/24 22:53 98.2 F 100 16 99/46 02/14/24 22:45 92 17 108/54 95 02/14/24 22:30 94 17 107/49 96 02/14/24 22:15 92 18 108/56 96 02/14/24 22:00 87 18 109/52 96 02/14/24 21:45 92 25 H 104/50 96 02/14/24 21:30 95 21 121/58 95 02/14/24 21:15 95 21 112/53 95 02/14/24 21:00 94 16 106/50 97 02/14/24 20:46 98.1 F 96 17 106/50 02/14/24 20:45 96 17 120/59 96 02/14/24 20:30 96 20 116/60 98 02/14/24 20:26 98.6 F 87 15 120/59 97 02/14/24 20:16 98.5 F 93 17 116/60 96 02/14/24 20:15 94 14 108/50 97 02/14/24 20:00 97 19 113/73 95 02/14/24 19:45 98 16 113/56 96 02/14/24 19:30 101 H 18 114/52 96 02/14/24 19:15 101 H 19 104/47 93 L 02/14/24 19:00 100 19 111/76 96 02/14/24 18:40 98 20 104/67 97 02/14/24 18:20 101 H 22 127/59 98 02/14/24 18:10 103 H 21 105/54 96 02/14/24 18:00 102 H 14 126/64 95 02/14/24 17:50 98.8 F 112 H 19 120/61 98 02/14/24 17:40 110 H 120/61 91 L 02/14/24 17:37 103 H 28 H 02/14/24 17:16 98.2 F 105 H 18 114/51 97 02/14/24 17:00 101 H 18 99/53 96 02/14/24 15:49 100 17 110/53 96 02/14/24 15:01 98 18 97/51 96 02/14/24 14:45 93 20 101/53 96 02/14/24 14:37 96 20 95/49 97 02/14/24 14:11 101 H 20 99/44 96 02/14/24 14:06 105 H 24 93/39 95 02/14/24 13:15 98.5 F 102 H 17 91/45 95 Intake and Output 02/14/24 02/14/24 02/15/24 14:59 22:59 06:59 Intake Total 2.149 1087.556 280 Output Total 1725 350 Balance 2.149 -637.444 -70 Intake: IV 30 20 .9 kvo 30 20 Intake, IV Titration 2.149 747.556 260 Amount Meropenem 1 gm In Sodium 66 Chloride 0.9% 100 ml @ 33 .3 mls/hr IVPB Q12HR ALLIE Rx#:[id number] Norepinephrine 32 mg In 2.149 31.556 Sodium Chloride 0.9% 218 ml @ 0.03 MCG/KG/MIN 1.18 mls/hr IV .Q24H ONE Rx#: [id number] Sodium Chloride 0.9% 1, 650 260 000 ml @ 130 mls/hr IV . Q7H42M STA Rx#:[id number] Blood Product 310 Rc As-1 Unit 310 [id number] Output: Urine 1725 350 Other: Weight 83.915 kg 83.915 kg GENERAL EXAM: Lethargic 58-year-old white female, awakes to verbal questioning, but then falls quickly back to sleep. Does not appear in any distress. Generalized edema and anasarca HEAD: Normocephalic and atraumatic EYES: Normal reaction of pupils, equal size. NOSE: Clear with pink turbinates. THROAT: No erythema or exudates. NECK: No masses, no JVD. CHEST: No chest wall deformity. LUNGS: Equal air entry with no crackles, wheeze, rhonchi or dullness. On room air. No conversational dyspnea or accessory muscle use.. CVS: S1 and S2 normal with no audible murmur, regular rhythm. No extra heart sounds ABDOMEN: No hepatosplenomegaly, active bowel sounds, no guarding or rigidity. Remote appearing abdominal incision. Urostomy bag noted draining yellow cloudy/sediment urine. SPINE: No scoliosis or deformity SKIN: Large sacral decubitus pressure ulcer stage IV, progressing down to the fascial/bone with large amounts of pink granulation tissue. CENTRAL NERVOUS SYSTEM: Lethargic, follows simple commands, unable to move bilateral lower extremities. EXTREMITIES: Anasarca and bilateral lower extremity edema. No clubbing, or cyanosis. Peripheral pulses are intact. Results - Laboratory Findings CBC and BMP: 02/15/24 00:25 02/14/24 13:58 PT/INR, D-dimer PT 11.0 sec (10.0-12.5) 02/14/24 13:58 INR 1.0 (<1.2) 02/14/24 13:58 Abnormal lab findings: Abnormal Labs 02/14/24 02/14/24 02/14/24 13:58 13:58 13:58 WBC RBC 2.84 L Hgb 6.8 L* Hct 23.2 L MCH 24.0 L MCHC 29.3 L RDW 20.1 H Plt Count 488 H Potassium 5.6 H Chloride 117 H Carbon Dioxide 10 L BUN 108 H* Creatinine 2.03 H Glucose 107 H POC Glucose (mg/dL) Calcium 7.7 L Alkaline Phosphatase 456 H Albumin 2.4 L Urine Appearance Turbid H Urine Protein 2+ H Urine Blood Small H Ur Leukocyte Esterase Large H Urine RBC 56 H Urine WBC >182 H Urine WBC Clumps Many H Urine Bacteria Few H Urine Mucus Few H Crossmatch 02/14/24 02/14/24 02/15/24 16:09 17:53 00:25 WBC 12.2 H RBC 3.28 L Hgb 8.0 L Hct 27.9 L MCH 24.5 L MCHC 28.8 L RDW 19.8 H Plt Count 523 H Potassium Chloride Carbon Dioxide BUN Creatinine Glucose POC Glucose (mg/dL) 144 H Calcium Alkaline Phosphatase Albumin Urine Appearance Urine Protein Urine Blood Ur Leukocyte Esterase Urine RBC Urine WBC Urine WBC Clumps Urine Bacteria Urine Mucus Crossmatch See Detail - Diagnostic Findings Chest x-ray: image reviewed Assessment and Plan Assessment: Hypotension and shock, suspect septic shock, possible urosepsis. Currently on vasopressors in the form of norepinephrine. Anemia of chronic disease, hemoglobin noted to be 6.8 g/dL on admission status post 1 unit PRBC up to 8 g/dL Chronic sacral decubitus pressure ulcer Acute kidney injury, likely secondary to hypotension and ATN Severe non-anion gap metabolic acidosis Hyperkalemia secondary to above Diabetes mellitus, insulin-dependent History of spina bifida History of Chiari malformation History of hydrocephalus and VA shunt History of urostomy and recurrent urinary tract infections History of asthma, stable Obesity, with a BMI of 31.8 kg/m Plan: Patient's medications, labs, imaging were reviewed Patient is admitted to the intensive care unit Central line access established by ER physician. She is requiring vasopressor support in the form of norepinephrine which is infusing at 0.07 mcg/kg/min at the moment. She is covered on empiric antibiotics, directed by infectious disease specialist. Patient has history of MDRO infections. Appropriate cultures are pending. Patient started on sodium bicarbonate infusion with 3 A at the 150 mL/h Monitor electrolytes Patient is status post 1 unit PRBCs, monitor for acute blood loss, patient does have history of chronic anemia Protonix for GI prophylaxis consult Heparin for DVT prophylaxis along with SCDs Consult wound care Patient will be monitored while in the intensive care unit. Condition is currently critical. She is a DO NOT RESUSCITATE/DNI status I have personally seen and examined the patient, performed the documentation and the assessment and plan as written. Number of minutes spent on the visit:20 Time with Patient: Greater than 30
[2024-02-15 06:17] LABS: Anisocytosis Slight; Basophils # (A) 0.1 k/uL (0-0.2); Basophils % (A) 1 %; Eosinophils % (A) 0 %; HCT 27.4 % (34.0-46.0); HGB 7.9 gm/dL (11.4-16.0); Hypochromasia Marked; Lymphocytes # (A) 1.7 k/uL (1.0-4.8); Lymphocytes % (A) 21 %; MCH 24.5 pg (25.0-35.0); MCHC 28.6 g/dL (31.0-37.0); MCV 85.7 fL (80.0-100.0); Mean Platelet Volume 7.3; Microcytosis Slight; Monocytes # (A) 0.4 k/uL (0-1.0); Monocytes % (A) 5 %; Neutrophils # (A) 5.6 k/uL (1.3-7.7); Neutrophils % (A) 69 %; Platelet Count 502 k/uL (150-450); Poikilocytosis Slight; RDW 19.8 % (11.5-15.5); WBC 8.2 k/uL (3.8-10.6)
[2024-02-15] MEDS: MEROPENEM 1 GM in SODIUM CHLORIDE 0.9% 100 ML IVPB SCH (06:24)
[2024-02-15 06:28] LABS: Glucose,Whole Blood 164 mg/dL (70-110)
[2024-02-15] MEDS: INSULIN ASPART (NovoLOG) 100 UNIT/ML VIAL SQ SCH (06:30)
[2024-02-15 06:49] LABS: African American GFR (CKD) 40 (>60 ml/min/1.73 sqM); Anion Gap 14 mmol/L; Blood Urea Nitrogen 92 mg/dL (7-17); Calcium 7.7 mg/dL (8.4-10.2); Carbon Dioxide 10 mmol/L (22-30); Chloride 119 mmol/L (98-107); Glucose 156 mg/dL (74-99); Non-African American GFR(CKD) 35 (>60 ml/min/1.73 sqM); Potassium 4.3 mmol/L (3.5-5.1); Sodium 143 mmol/L (137-145)
--- NOTE | 2024-02-15 07:39 | P.CONS ---
History of Present Illness - Reason for Consult Consult date: 02/14/24 UTI, sepsis Requesting physician: Alexis Pineda - Chief Complaint Lethargy and mental status changes x 1 day - History of Present Illness Patient is a 58-year-old female with a past medical history significant for diabetes mellitus reflux asthma spina bifida, this patient who is a bedbound and did have a sacral pressure ulcer with the previous episode of osteomyelitis patient has been brought into the hospital from the local custodial after the patient was found to be lethargic mental status changes on arrival of the EMS the patient was noted to be hypotensive with a blood pressure in the 70s systolic has received a 500 cc bolus patient on presentation to the hospital was afebrile she was tachycardic and hypotensive requiring fluid boluses and was started on pressor and admitted to ICU patient did have a hemoglobin of 6.8 white count was 8.1 BUN and creatinine has been elevated liver enzymes are normal urine is positive he was given a dose of cefepime in the ER admitted to the ICU infectious disease was consulted for further management of antibiotic therapy patient did have a chest x-ray mild pulmonary vascular congestion, patient time of evaluation is lethargic but arousable has been complaining of pain all over unable to pinpoint the exact location of the pain patient denies having any headache or URI symptoms no chest pain shortness of the cough has been complaining of nausea but no vomiting no abdominal pain or diarrhea has been reported has been complaining of pain to the sacral wound but unable to quantify it any further Review of Systems Positive point and negatives has been mentioned in the HPI, complete review of systems was performed and all other systems are negative Past Medical History Past Medical History: Asthma, Diabetes Mellitus, GERD/Reflux, Musculoskeletal Disorder, Neurologic Disorder, Pneumonia, Renal Disease, Sleep Apnea/CPAP/BIPAP Additional Past Medical History / Comment(s): 08-09-15 admitted with cellulitis of external nose. other pst medical hx includes: hx. 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 ESBL MDRO Source:: MRSA BUTTOCK, ESBL LEG Past Surgical History: Back Surgery, Bowel Resection, Orthopedic Surgery Additional Past Surgical History / Comment(s): multiple surgeries for hydrocephalus, urostomy x 2, multiple hip,leg, foot surgeries, ankles fused, [facility] shunt, pt stated back sx was to remove spina bifida growth, egd Past Anesthesia/Blood Transfusion Reactions: No Reported Reaction Past Psychological History: No Psychological Hx Reported Smoking Status: Never smoker Past Alcohol Use History: None Reported Past Drug Use History: None Reported - Past Family History Father Family Medical History: Hypertension Additional Family Medical History / Comment(s): gout, heart murmur, rheumatic fever as child, tia Mother Family Medical History: Cancer, Hypertension Additional Family Medical History / Comment(s): interstitial cystitis, breast cancer x2, diet controlled diabetic, hiatal hernia Medications and Allergies Home Medications Medication Instructions Recorded Confirmed Type allopurinoL [Zyloprim] 300 mg PO DAILY 10/04/14 02/14/24 History Calcium Carbonate 500 mg PO DAILY 06/09/23 02/14/24 History Cholestyramine (with Sugar) 4 gm PO TID PRN 06/09/23 02/14/24 History [Questran Packet] Lidocaine Viscous 2% [Xylocaine 5 ml PO Q4H PRN 06/09/23 02/14/24 History Viscous] Magnesium Oxide [Mag-Ox] 400 mg PO DAILY 06/09/23 02/14/24 History Menthol [Icy Hot] 2 patch TRANSDERM DAILY 06/09/23 02/14/24 History Thiamine [Vitamin B-1] 100 mg PO DAILY 06/09/23 02/14/24 History Ascorbic Acid [Vitamin C] 500 mg PO HS 09/16/23 02/14/24 History Folic Acid 0.4 mg PO BID 09/16/23 02/14/24 History Heparin Lock Flush Solution 50 unit IV Q24H PRN 09/16/23 02/14/24 History 10unit/Ml Heparin Lock Flush Solution 50 units IV QMONTHLY 09/16/23 02/14/24 History 10unit/Ml Multivitamins, Thera [Multivitamin 1 tab PO HS 09/16/23 02/14/24 History (formulary)] Naloxone HCl 0.4 mg IM ONCE PRN 09/16/23 02/14/24 History Naloxone HCl [Narcan] 4 mg NASAL ONCE PRN 09/16/23 02/14/24 History Saccharomyces Boulardii (Unknown 1 cap PO BID 09/16/23 02/14/24 History Strength) Sodium Chloride 0.9 % (Flush) 10 ml IV Q24H PRN 09/16/23 02/14/24 History [Aquastat (Flush)] Sodium Chloride 0.9 % (Flush) 10 ml IV QMONTHLY 09/16/23 02/14/24 History [Aquastat (Flush)] Torsemide [Demadex] 60 mg PO DAILY@0700 09/16/23 02/14/24 History Morphine Sulfate ER [Ms Contin] 15 mg PO DAILY@1500 #3 tab 09/18/23 02/14/24 Rx Butalb/Acetaminophen/Caffeine 1 cap PO Q4HR PRN 02/14/24 02/14/24 History [Fioricet 50-300-40 mg Capsule] Darbepoetin Dino [Aranesp] 100 mcg SQ Q14D 02/14/24 02/14/24 History Famotidine [Pepcid] 20 mg PO BID@0700,1900 02/14/24 02/14/24 History Ferrous Sulfate [Iron (65 MG 325 mg PO DAILY 02/14/24 02/14/24 History Elemental)] HYDROcodone/APAP 5-325MG [[place] 1 tab PO Q4H 02/14/24 02/14/24 History 5-325] Menthol [Biofreeze] 1 applic TOPICAL TID@0700,1300,1900 02/14/24 02/14/24 History Ondansetron [Zofran] 4 mg PO Q6H PRN 02/14/24 02/14/24 History Allergies Allergy/AdvReac Type Severity Reaction Status Date / Time amoxicillin trihydrate Allergy Rash/Hives Verified 02/14/24 14:04 [From Augmentin] banana Allergy Unknown Verified 02/14/24 14:04 chestnut Allergy Unknown Verified 02/14/24 14:04 ciprofloxacin [From Cipro] Allergy Rash/Hives Verified 02/14/24 14:04 ciprofloxacin HCl Allergy Rash/Hives Verified 02/14/24 14:04 [From Cipro] Collagenase Clostridium Allergy Rash/Hives Verified 02/14/24 14:04 histolyticu kiwi Allergy Unknown Verified 02/14/24 14:04 Latex, Natural Rubber Allergy Anaphylaxis Verified 02/14/24 14:04 methylprednisolone Allergy Rash/Hives Verified 02/14/24 14:04 [From Solu-Medrol] midazolam Allergy Unknown Verified 02/14/24 14:04 nitrofurantoin Allergy Rash/Hives Verified 02/14/24 14:04 macrocrystalline [From Macrodantin] oxacillin Allergy Unknown Verified 02/14/24 14:04 potassium clavulanate Allergy Rash/Hives Verified 02/14/24 14:04 [From Augmentin] Sulfa (Sulfonamide Allergy Rash/Hives, Verified 02/14/24 14:04 Antibiotics) high blood pressure vancomycin Allergy Anaphylaxis Verified 02/14/24 14:04 Beef Containing Products AdvReac Diarrhea Verified 02/14/24 14:04 [Beef] sucralose AdvReac Diarrhea Verified 02/14/24 14:04 [From Splenda (sucralose)] COLLAGEN Allergy Rash/Hives Uncoded 02/14/24 14:04 Physical Exam Vitals: Vital Signs Temp Pulse Resp BP Pulse Ox 02/14/24 17:16 98.2 F 105 H 18 114/51 97 02/14/24 17:00 101 H 18 99/53 96 02/14/24 15:49 100 17 110/53 96 02/14/24 15:01 98 18 97/51 96 02/14/24 14:45 93 20 101/53 96 02/14/24 14:37 96 20 95/49 97 02/14/24 14:11 101 H 20 99/44 96 02/14/24 14:06 105 H 24 93/39 95 02/14/24 13:15 98.5 F 102 H 17 91/45 95 Intake and Output 02/14/24 02/14/24 02/14/24 06:59 14:59 22:59 Intake Total 2.149 6.851 Balance 2.149 6.851 Intake: Intake, IV Titration 2.149 6.851 Amount Norepinephrine 32 mg In 2.149 6.851 Sodium Chloride 0.9% 218 ml @ 0.03 MCG/KG/MIN 1.18 mls/hr IV .Q24H ONE Rx#: [id number] Other: Weight 83.915 kg GENERAL DESCRIPTION: Middle-aged male lying in bed, no distress. No tachypnea or accessory muscle of respiration use. HEENT: Shows Pallor , no scleral icterus. Oral mucous membrane is dry. No pharyngeal erythema or thrush NECK: Trachea central, no thyromegaly. LUNGS: Unlabored breathing. Decreased breath sound at the base HEART: S1, S2, regular rate and rhythm. No loud murmur ABDOMEN: Soft, no tenderness , guarding or rigidity, no organomegaly EXTREMITIES: No edema of feet. SKIN: Patient did have a stage IV sacral pressure ulcer with a bone palpable but no significant slough tissue, patient also have a stage IV pressure ulcer to the right upper thigh just below the gluteal cleft with no slough tissue or any foul-smelling drainage NEUROLOGICAL: The patient is lethargic but arousable mood and affect is normal Results CBC & Chem 7: 02/15/24 05:28 02/15/24 05:28 Labs: Abnormal Lab Results - Last 24 Hours (Table) 02/14/24 02/14/24 02/14/24 Range/Units 13:58 13:58 13:58 RBC 2.84 L (3.80-5.40) m/uL Hgb 6.8 L* (11.4-16.0) gm/dL Hct 23.2 L (34.0-46.0) % MCH 24.0 L (25.0-35.0) pg MCHC 29.3 L (31.0-37.0) g/dL RDW 20.1 H (11.5-15.5) % Plt Count 488 H (150-450) k/uL Potassium 5.6 H (3.5-5.1) mmol/L Chloride 117 H (98-107) mmol/L Carbon Dioxide 10 L (22-30) mmol/L BUN 108 H* (7-17) mg/dL Creatinine 2.03 H (0.52-1.04) mg/dL Glucose 107 H (74-99) mg/dL POC Glucose (mg/dL) (70-110) mg/dL Calcium 7.7 L (8.4-10.2) mg/dL Alkaline Phosphatase 456 H (38-126) U/L Albumin 2.4 L (3.5-5.0) g/dL Urine Appearance Turbid H (Clear) Urine Protein 2+ H (Negative) Urine Blood Small H (Negative) Ur Leukocyte Esterase Large H (Negative) Urine RBC 56 H (0-5) /hpf Urine WBC >182 H (0-5) /hpf Urine WBC Clumps Many H (None) /hpf Urine Bacteria Few H (None) /hpf Urine Mucus Few H (None) /hpf 02/14/24 Range/Units 17:53 RBC (3.80-5.40) m/uL Hgb (11.4-16.0) gm/dL Hct (34.0-46.0) % MCH (25.0-35.0) pg MCHC (31.0-37.0) g/dL RDW (11.5-15.5) % Plt Count (150-450) k/uL Potassium (3.5-5.1) mmol/L Chloride (98-107) mmol/L Carbon Dioxide (22-30) mmol/L BUN (7-17) mg/dL Creatinine (0.52-1.04) mg/dL Glucose (74-99) mg/dL POC Glucose (mg/dL) 144 H (70-110) mg/dL Calcium (8.4-10.2) mg/dL Alkaline Phosphatase (38-126) U/L Albumin (3.5-5.0) g/dL Urine Appearance (Clear) Urine Protein (Negative) Urine Blood (Negative) Ur Leukocyte Esterase (Negative) Urine RBC (0-5) /hpf Urine WBC (0-5) /hpf Urine WBC Clumps (None) /hpf Urine Bacteria (None) /hpf Urine Mucus (None) /hpf Assessment and Plan (1) Catheter-associated urinary tract infection Current Visit: Yes Status: Acute Code(s): T83.511A - I/I REACT D/T INDWELLING URETHRAL CATHETER, INIT; N39.0 - URINARY TRACT INFECTION, SITE NOT SPECIFIED SNOMED Code(s): 282739526 (2) Allergy to multiple antibiotics Current Visit: No Status: Acute Code(s): Z88.1 - ALLERGY STATUS TO OTHER ANTIBIOTIC AGENTS SNOMED Code(s): 948940791 (3) Pressure injury of sacral region, stage 4 Current Visit: No Status: Acute Code(s): L89.154 - PRESSURE ULCER OF SACRAL REGION, STAGE 4 SNOMED Code(s): 05889310951850 (4) Sepsis Current Visit: No Status: Acute Code(s): A41.9 - SEPSIS, UNSPECIFIED ORGANISM SNOMED Code(s): 78553380 Plan: 1patient presented to hospital with sepsis in this patient who did have a hypotension tachycardia likely multifactorial more likely related to the cath eter associated tract infection as the patient has significantly positive UA and a suprapubic catheter patient also have a pressure ulcer to the sacral area and the right posterior thigh but no significant slough tissue was noticed 2-patient with multiple antibiotic ALLERGIES that would limit the number of antibiotic safe to use 3-change her Reyna catheter obtain urine culture from the new Reyna 4-local wound care with the Aquacel silver dressing change every 48 hours 5-we will start the patient on meropenem 1 g every 12 hours dose adjusted to the kidney function while waiting for the culture to finalize We will follow on clinical condition and cultures to further adjust medication if needed Thank you for this consultation we will follow the patient along with you Dictation was produced using [employer] dictation software. please excuse any grammatical, word or spelling errors. Time with Patient: Greater than 30
[2024-02-15] MEDS: HEPARIN SODIUM,PORCINE 5,000 UNIT/ML 1 ML VIAL SQ SCH (09:07)
[2024-02-15 11:28] VITALS: BMI 28.3
[2024-02-15 11:43] LABS: Glucose,Whole Blood 177 mg/dL (70-110)
--- NOTE | 2024-02-15 13:16 | CA ---
Transthoracic Echo Report Name: Marielos Cardenas Age: 58 Gender: F : 1965 Exam Date: 02/15/2024 08:40 Exam Location: [facility] Ht (in): 64 Wt (lb): 185 Ordering Physician: To Carter Attending/Referring Phys: Wood Experimental Mechanic Kelsey Lieberman RDCS Procedure CPT: Indications: evaluate LV function Cardiac Hx: Technical Quality: Fair Contrast 1: Total Dose (mL): Contrast 2: Total Dose (mL): MEASUREMENTS (Male / Female) Normal Values 2D ECHO LV Diastolic Diameter PLAX 3.7 cm 4.2 - 5.9 / 3.9 - 5.3 cm LV Systolic Diameter PLAX 1.6 cm IVS Diastolic Thickness 0.7 cm 0.6 - 1.0 / 0.6 - 0.9 cm LVPW Diastolic Thickness 0.7 cm 0.6 - 1.0 / 0.6 - 0.9 cm LV Relative Wall Thickness 0.4 RV Internal Dim ED PLAX 3.8 cm LA Volume 38.5 cm??? 18 - 58 / 22 - 52 cm??? LA Volume Index 19.4 cm???/m??? 16 - 28 cm???/m??? M-MODE Aortic Root Diameter MM 2.9 cm LA Systolic Diameter MM 4.2 cm LA Ao Ratio MM 1.5 AV Cusp Separation MM 1.8 cm DOPPLER AV Peak Velocity 182.8 cm/s AV Peak Gradient 13.4 mmHg AV Mean Velocity 125.0 cm/s AV Mean Gradient 7.0 mmHg AV Velocity Time Integral 29.5 cm LVOT Peak Velocity 135.8 cm/s LVOT Peak Gradient 7.4 mmHg LVOT Velocity Time Integral 26.3 cm MV Area PHT 5.2 cm??? Mitral E Point Velocity 116.0 cm/s Mitral A Point Velocity 110.6 cm/s Mitral E to A Ratio 1.0 MV Deceleration Time 147.3 ms MV E' Velocity 6.7 cm/s Mitral E to MV E' Ratio 17.2 TR Peak Velocity 310.9 cm/s TR Peak Gradient 38.7 mmHg Right Ventricular Systolic Press 43.5 mmHg FINDINGS Left Ventricle Normal Left ventricular size, wall thickness, systolic function with no obvious regional wall motion abnormalities. Left ventricular ejection fraction is estimated at 55-60 %. Right Ventricle Mild right ventricular dilatation. Mild pulmonary hypertension. Right Atrium Normal right atrial size. Left Atrium Left atrial size at the upper limits of normal. Interatrial septal aneurysm. Mitral Valve Structurally normal mitral valve. Mild mitral regurgitation. Aortic Valve Trileaflet aortic valve. No aortic valve stenosis or regurgitation. Aortic valve sclerosis. Tricuspid Valve Structurally normal tricuspid valve. Mild tricuspid regurgitation. Pulmonic Valve Structurally normal pulmonic valve. Trace pulmonic regurgitation. Pericardium No pericardial effusion. Aorta Normal size aortic root and proximal ascending aorta. CONCLUSIONS Left ventricular ejection fraction 55-60% Interatrial septal aneurysm Mild mitral regurgitation Mild tricuspid regurgitation RVSP 43 Previewed by: Dr. Channing Williamson DO (Electronically Signed) Final Date: 15 February 2024 13:15
--- NOTE | 2024-02-15 14:29 | P.HPIM ---
History of Present Illness H&P Date: 02/15/24 This is a pleasant 58 year old female with medical history of spina bifida, asthma, diabetes mellitus , GERD, sleep apnea, chiari malformation. [facility] concern for altered mentation and low blood pressure down into the 70s systolic. Patient was admitted to the ICU with consults placed to pulmonary cost report clerk and ID. Patient is bedbound at baseline; does have known sacral pressure injury as well as pressure injury to the left thigh. Patient was given fluid bolus and started on levophed pressor support. Patient has been started on IV meropenem with concern for UTI and does have history of ESBL. Chest x-ray reveals mild pulmonary vascular congestion. EKG reveals sinus tachycardia heart rate of [address] or T wave changes. Blood work reveals a white blood cell count of 8.1, hemoglobin 6.8, platelet count of 488, potassium of 5.6, BUN of 108, creatinine of 2.03, lactic acid of 0.7, troponin level is negative, urinalysis is significantly abnormal with a turbid appearance, large leukocyte Estrace, greater than 182 WBCs and few bacteria. Patient is not complaining of any chest pain or shortness of breath she is currently awake and alert and less confused her family is at the bedside. Her main complaint today is the pain she is having from the sacral wound. Patient is maintained on MS contin outpatient will need to be held secondary to the renal dysfunction. Blood cultures today have come back showing gram-positive cocci in chains as well as gram-positive cocci in clusters, Staphylococcus species, Streptococcus species, strep collected group B, MRSA are showing as positive. Preliminary wound culture of the sacral ulcer reveal few gram positive bacilli, few gram positive cocci, and few gram negative bacilli. Patient is not on combination of IV daptomycin, IV meropenem. REVIEW OF SYSTEMS: CONSTITUTIONAL: No fever, no malaise. Reports fatigue. HEENT: No recent visual problems or hearing problems. Denied any sore throat. CARDIOVASCULAR: No chest pain, orthopnea, PND, no palpitations, no syncope. PULMONARY: No shortness of breath, no cough, no hemoptysis. GASTROINTESTINAL: No diarrhea, no nausea, no vomiting, no abdominal pain. NEUROLOGICAL: No headaches, no weakness, no numbness. HEMATOLOGICAL: Denies any bleeding or petechiae. GENITOURINARY: Denies any burning micturition, frequency, or urgency. MUSCULOSKELETAL/RHEUMATOLOGICAL: Denies any joint pain, swelling, or any muscle pain. ENDOCRINE: Denies any polyuria or polydipsia. The rest of the 14-point review of systems is negative. PHYSICAL EXAMINATION: GENERAL: The patient is alert and oriented x2-3, not in any acute distress. Well developed, well nourished. HEENT: Pupils are round and equally reacting to light. EOMI. No scleral icterus. No conjunctival pallor. Normocephalic, atraumatic. No pharyngeal erythema. No thyromegaly. CARDIOVASCULAR: S1 and S2 present. No murmurs, rubs, or gallops. PULMONARY: Chest is clear to auscultation, no wheezing or crackles. ABDOMEN: Soft, nontender, nondistended, normoactive bowel sounds. No palpable organomegaly. MUSCULOSKELETAL: No joint swelling or deformity. EXTREMITIES: No cyanosis, clubbing, Mild pedal edema. NEUROLOGICAL: Gross neurological examination did not reveal any focal deficits. Diffuse weakness. SKIN: Sacral pressure injury. Assessment Acute urinary tract infection; likely catheter associated; with sepsis and septic shock, POA MRSA/Strep Bacteremia Sacral pressure injury, left thigh pressure injury POA Acute kidney injury acute tubular necrosis from infection. Altered mental status acute metabolic and toxic encephalopathy Neurogenic bladder and suprapubic catheter History of Spina Bifidi and chiari malformation patient is bedbound at baseline Diabetes Mellitus type 2 Gastroesophageal reflux disease Hx of asthma with no acute exacerbation Hx of hydrocephalus and VA shunt Chronic kidney disease Anemia of chronic disease GI prophylaxis DVT prophylaxis Do Not Resuscitate/Do Not Intubate Plan Continue IV antibiotics with IV meropenem/IV daptomycin while waiting for final cultures Blood culture has been repeated today. ID following closely. Local wound care to the pressure injuries with aquacel Continue Bicarb Gtt. Continue levophed per intesnivist Need to hold the MS Contin due to renal dysfunction Urology consultation pending Wound care consult pending. Repeat labs in the AM. The impression and plan of care has been dictated by Viviana Sellers, Nurse Practitioner as directed. Dr. Shimon MD I have performed a history and physical examination and medical decision making of this patient, discussed the same with the dictator, and agree with the dictators assessment and plan as written, documented as a scribe. Based on total visit time, I have performed more than 50% of this visit. Past Medical History Past Medical History: Asthma, Diabetes Mellitus, GERD/Reflux, Musculoskeletal D isorder, Neurologic Disorder, Pneumonia, Renal Disease, Sleep Apnea/CPAP/BIPAP Additional Past Medical History / Comment(s): 08-09-15 admitted with cellulitis of external nose. other pst medical hx includes: hx. 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, MRSA Date of last positivie culture/infection: 07/07/21 MRSA 01/07/15 ESBL MDRO Source:: MRSA BUTTOCK, ESBL LEG Past Surgical History: Back Surgery, Bowel Resection, Orthopedic Surgery Additional Past Surgical History / Comment(s): multiple surgeries for hydrocephalus, urostomy x 2, multiple hip,leg, foot surgeries, ankles fused, VA shunt, pt stated back sx was to remove spina bifida growth, egd Past Anesthesia/Blood Transfusion Reactions: No Reported Reaction Past Psychological History: No Psychological Hx Reported Smoking Status: Never smoker Past Alcohol Use History: None Reported Past Drug Use History: None Reported - Past Family History Father Family Medical History: Hypertension Additional Family Medical History / Comment(s): gout, heart murmur, rheumatic fever as child, tia Mother Family Medical History: Cancer, Hypertension Additional Family Medical History / Comment(s): interstitial cystitis, breast cancer x2, diet controlled diabetic, hiatal hernia Medications and Allergies Home Medications Medication Instructions Recorded Confirmed Type allopurinoL [Zyloprim] 300 mg PO DAILY 10/04/14 02/14/24 History Calcium Carbonate 500 mg PO DAILY 06/09/23 02/14/24 History Cholestyramine (with Sugar) 4 gm PO TID PRN 06/09/23 02/14/24 History [Questran Packet] Lidocaine Viscous 2% [Xylocaine 5 ml PO Q4H PRN 06/09/23 02/14/24 History Viscous] Magnesium Oxide [Mag-Ox] 400 mg PO DAILY 06/09/23 02/14/24 History Menthol [Icy Hot] 2 patch TRANSDERM DAILY 06/09/23 02/14/24 History Thiamine [Vitamin B-1] 100 mg PO DAILY 06/09/23 02/14/24 History Ascorbic Acid [Vitamin C] 500 mg PO HS 09/16/23 02/14/24 History Folic Acid 0.4 mg PO BID 09/16/23 02/14/24 History Heparin Lock Flush Solution 50 unit IV Q24H PRN 09/16/23 02/14/24 History 10unit/Ml Heparin Lock Flush Solution 50 units IV QMONTHLY 09/16/23 02/14/24 History 10unit/Ml Multivitamins, Thera [Multivitamin 1 tab PO HS 09/16/23 02/14/24 History (formulary)] Naloxone HCl 0.4 mg IM ONCE PRN 09/16/23 02/14/24 History Naloxone HCl [Narcan] 4 mg NASAL ONCE PRN 09/16/23 02/14/24 History Saccharomyces Boulardii (Unknown 1 cap PO BID 09/16/23 02/14/24 History Strength) Sodium Chloride 0.9 % (Flush) 10 ml IV Q24H PRN 09/16/23 02/14/24 History [Aquastat (Flush)] Sodium Chloride 0.9 % (Flush) 10 ml IV QMONTHLY 09/16/23 02/14/24 History [Aquastat (Flush)] Torsemide [Demadex] 60 mg PO DAILY@0700 09/16/23 02/14/24 History Morphine Sulfate ER [Ms Contin] 15 mg PO DAILY@1500 #3 tab 09/18/23 02/14/24 Rx Butalb/Acetaminophen/Caffeine 1 cap PO Q4HR PRN 02/14/24 02/14/24 History [Fioricet 50-300-40 mg Capsule] Darbepoetin Dino [Aranesp] 100 mcg SQ Q14D 02/14/24 02/14/24 History Famotidine [Pepcid] 20 mg PO BID@0700,1900 02/14/24 02/14/24 History Ferrous Sulfate [Iron (65 MG 325 mg PO DAILY 02/14/24 02/14/24 History Elemental)] HYDROcodone/APAP 5-325MG [[place] 1 tab PO Q4H 02/14/24 02/14/24 History 5-325] Menthol [Biofreeze] 1 applic TOPICAL TID@0700,1300,1900 02/14/24 02/14/24 History Ondansetron [Zofran] 4 mg PO Q6H PRN 02/14/24 02/14/24 History Allergies Allergy/AdvReac Type Severity Reaction Status Date / Time amoxicillin trihydrate Allergy Rash/Hives Verified 02/14/24 14:04 [From Augmentin] banana Allergy Unknown Verified 02/14/24 14:04 chestnut Allergy Unknown Verified 02/14/24 14:04 ciprofloxacin [From Cipro] Allergy Rash/Hives Verified 02/14/24 14:04 ciprofloxacin HCl Allergy Rash/Hives Verified 02/14/24 14:04 [From Cipro] Collagenase Clostridium Allergy Rash/Hives Verified 02/14/24 14:04 histolyticu kiwi Allergy Unknown Verified 02/14/24 14:04 Latex, Natural Rubber Allergy Anaphylaxis Verified 02/14/24 14:04 methylprednisolone Allergy Rash/Hives Verified 02/14/24 14:04 [From Solu-Medrol] midazolam Allergy Unknown Verified 02/14/24 14:04 nitrofurantoin Allergy Rash/Hives Verified 02/14/24 14:04 macrocrystalline [From Macrodantin] oxacillin Allergy Unknown Verified 02/14/24 14:04 potassium clavulanate Allergy Rash/Hives Verified 02/14/24 14:04 [From Augmentin] Sulfa (Sulfonamide Allergy Rash/Hives, Verified 02/14/24 14:04 Antibiotics) high blood pressure vancomycin Allergy Anaphylaxis Verified 02/14/24 14:04 Beef Containing Products AdvReac Diarrhea Verified 02/14/24 14:04 [Beef] sucralose AdvReac Diarrhea Verified 02/14/24 14:04 [From Splenda (sucralose)] COLLAGEN Allergy Rash/Hives Uncoded 02/14/24 14:04 Physical Exam Vitals: Vital Signs Temp Pulse Resp BP Pulse Ox 02/15/24 07:00 111 H 19 116/61 96 02/15/24 06:45 110 H 21 116/55 95 02/15/24 06:30 112 H 19 115/55 95 02/15/24 06:15 99 22 104/90 95 02/15/24 06:00 111 H 23 118/56 96 08/27/24 05:45 100 17 123/57 95 02/15/24 05:30 105 H 22 102/53 96 02/15/24 05:15 96 18 123/56 95 02/15/24 05:00 105 H 20 107/46 94 L 02/15/24 04:45 96 19 112/52 94 L 02/15/24 04:30 101 H 20 113/50 96 02/15/24 04:15 98 16 118/61 95 02/15/24 04:00 98.6 F 95 17 121/61 96 02/15/24 03:45 104 H 30 H 102/46 94 L 02/15/24 03:30 94 17 106/52 95 02/15/24 03:15 95 16 111/57 96 02/15/24 03:00 94 18 105/47 95 02/15/24 02:45 89 16 124/64 96 02/15/24 02:30 100 18 101/49 97 02/15/24 02:15 85 17 104/49 95 02/15/24 02:00 88 24 108/53 96 02/15/24 01:45 93 21 107/52 96 02/15/24 01:30 94 17 112/62 96 02/15/24 01:15 95 21 103/48 94 L 02/15/24 01:00 91 18 98/45 96 02/15/24 00:45 98.5 F 91 23 117/54 95 02/15/24 00:38 91 20 117/54 96 02/15/24 00:30 99 18 97/45 96 02/15/24 00:15 87 21 105/49 96 02/15/24 00:00 89 16 107/48 96 02/14/24 23:45 92 17 113/52 96 02/14/24 23:30 90 15 118/78 96 02/14/24 23:15 95 25 H 104/53 98 02/14/24 23:00 93 18 99/46 95 02/14/24 22:53 98.2 F 100 16 99/46 02/14/24 22:45 92 17 108/54 95 02/14/24 22:30 94 17 107/49 96 02/14/24 22:15 92 18 108/56 96 02/14/24 22:00 87 18 109/52 96 02/14/24 21:45 92 25 H 104/50 96 02/14/24 21:30 95 21 121/58 95 02/14/24 21:15 95 21 112/53 95 02/14/24 21:00 94 16 106/50 97 02/14/24 20:46 98.1 F 96 17 106/50 02/14/24 20:45 96 17 120/59 96 02/14/24 20:30 96 20 116/60 98 02/14/24 20:26 98.6 F 87 15 120/59 97 02/14/24 20:16 98.5 F 93 17 116/60 96 02/14/24 20:15 94 14 108/50 97 02/14/24 20:00 97 19 113/73 95 02/14/24 19:45 98 16 113/56 96 02/14/24 19:30 101 H 18 114/52 96 02/14/24 19:15 101 H 19 104/47 93 L 02/14/24 19:00 100 19 111/76 96 02/14/24 18:40 98 20 104/67 97 02/14/24 18:20 101 H 22 127/59 98 02/14/24 18:10 103 H 21 105/54 96 02/14/24 18:00 102 H 14 126/64 95 02/14/24 17:50 98.8 F 112 H 19 120/61 98 02/14/24 17:40 110 H 120/61 91 L 02/14/24 17:37 103 H 28 H 02/14/24 17:16 98.2 F 105 H 18 114/51 97 02/14/24 17:00 101 H 18 99/53 96 02/14/24 15:49 100 17 110/53 96 02/14/24 15:01 98 18 97/51 96 02/14/24 14:45 93 20 101/53 96 02/14/24 14:37 96 20 95/49 97 02/14/24 14:11 101 H 20 99/44 96 02/14/24 14:06 105 H 24 93/39 95 02/14/24 13:15 98.5 F 102 H 17 91/45 95 Intake and Output 02/14/24 02/15/24 02/15/24 22:59 06:59 14:59 Intake Total 7696.249 3453 265.388 Output Total 1725 1045 100 Balance -637.444 45 165.388 Intake: IV 30 80 10 .9 kvo 30 80 10 Intake, IV Titration 984.510 3316 255.388 Amount Dextrose 5% in Water 1, 750 125 000 ml @ 125 mls/hr IV . Q9H12M ALLIE with Sodium Bicarb (1 Meq/ml) 150 ml Rx#:[id number] Meropenem 1 gm In Sodium 66 100 Chloride 0.9% 100 ml @ 33 .3 mls/hr IVPB Q12HR ALLIE Rx#:[id number] Norepinephrine 32 mg In 31.556 30.388 Sodium Chloride 0.9% 218 ml @ 0.03 MCG/KG/MIN 1.18 mls/hr IV .Q24H ONE Rx#: [id number] Sodium Chloride 0.9% 1, 650 260 000 ml @ 130 mls/hr IV . Q7H42M STA Rx#:[id number] Blood Product 310 Rc As-1 Unit 310 [id number] Output: Urine 1725 1045 100 Other: Weight 83.915 kg 74.8 kg Results CBC & Chem 7: 02/15/24 05:28 02/15/24 05:28 Labs: Abnormal Lab Results - Last 24 Hours (Table) 02/14/24 02/14/24 02/14/24 Range/Units 13:58 13:58 13:58 WBC (3.8-10.6) k/uL RBC 2.84 L (3.80-5.40) m/uL Hgb 6.8 L* (11.4-16.0) gm/dL Hct 23.2 L (34.0-46.0) % MCH 24.0 L (25.0-35.0) pg MCHC 29.3 L (31.0-37.0) g/dL RDW 20.1 H (11.5-15.5) % Plt Count 488 H (150-450) k/uL Potassium 5.6 H (3.5-5.1) mmol/L Chloride 117 H (98-107) mmol/L Carbon Dioxide 10 L (22-30) mmol/L BUN 108 H* (7-17) mg/dL Creatinine 2.03 H (0.52-1.04) mg/dL Glucose 107 H (74-99) mg/dL POC Glucose (mg/dL) (70-110) mg/dL Calcium 7.7 L (8.4-10.2) mg/dL Alkaline Phosphatase 456 H (38-126) U/L Albumin 2.4 L (3.5-5.0) g/dL Urine Appearance Turbid H (Clear) Urine Protein 2+ H (Negative) Urine Blood Small H (Negative) Ur Leukocyte Esterase Large H (Negative) Urine RBC 56 H (0-5) /hpf Urine WBC >182 H (0-5) /hpf Urine WBC Clumps Many H (None) /hpf Urine Bacteria Few H (None) /hpf Urine Mucus Few H (None) /hpf Crossmatch 02/14/24 02/14/24 02/15/24 Range/Units 16:09 17:53 00:25 WBC 12.2 H (3.8-10.6) k/uL RBC 3.28 L (3.80-5.40) m/uL Hgb 8.0 L (11.4-16.0) gm/dL Hct 27.9 L (34.0-46.0) % MCH 24.5 L (25.0-35.0) pg MCHC 28.8 L (31.0-37.0) g/dL RDW 19.8 H (11.5-15.5) % Plt Count 523 H (150-450) k/uL Potassium (3.5-5.1) mmol/L Chloride (98-107) mmol/L Carbon Dioxide (22-30) mmol/L BUN (7-17) mg/dL Creatinine (0.52-1.04) mg/dL Glucose (74-99) mg/dL POC Glucose (mg/dL) 144 H (70-110) mg/dL Calcium (8.4-10.2) mg/dL Alkaline Phosphatase (38-126) U/L Albumin (3.5-5.0) g/dL Urine Appearance (Clear) Urine Protein (Negative) Urine Blood (Negative) Ur Leukocyte Esterase (Negative) Urine RBC (0-5) /hpf Urine WBC (0-5) /hpf Urine WBC Clumps (None) /hpf Urine Bacteria (None) /hpf Urine Mucus (None) /hpf Crossmatch See Detail 02/15/24 02/15/24 02/15/24 Range/Units 05:28 05:28 06:27 WBC (3.8-10.6) k/uL RBC 3.20 L (3.80-5.40) m/uL Hgb 7.9 L (11.4-16.0) gm/dL Hct 27.4 L (34.0-46.0) % MCH 24.5 L (25.0-35.0) pg MCHC 28.6 L (31.0-37.0) g/dL RDW 19.8 H (11.5-15.5) % Plt Count 502 H (150-450) k/uL Potassium (3.5-5.1) mmol/L Chloride 119 H (98-107) mmol/L Carbon Dioxide 10 L (22-30) mmol/L BUN 92 H (7-17) mg/dL Creatinine 1.63 H (0.52-1.04) mg/dL Glucose 156 H (74-99) mg/dL POC Glucose (mg/dL) 164 H (70-110) mg/dL Calcium 7.7 L (8.4-10.2) mg/dL Alkaline Phosphatase (38-126) U/L Albumin (3.5-5.0) g/dL Urine Appearance (Clear) Urine Protein (Negative) Urine Blood (Negative) Ur Leukocyte Esterase (Negative) Urine RBC (0-5) /hpf Urine WBC (0-5) /hpf Urine WBC Clumps (None) /hpf Urine Bacteria (None) /hpf Urine Mucus (None) /hpf Crossmatch Microbiology - Last 24 Hours (Table) 02/14/24 18:16 Gram Stain - Preliminary Other - Other Thrombosis Risk Factor Assmnt - Choose All That Apply Any of the Below Risk Factors Present?: Yes Each Factor Represents 1 point: Age 41-60 years Thrombosis Risk Factor Assessment Total Risk Factor Score: 1 Thrombosis Risk Factor Assessment Level: Low Risk Assessment and Plan Time with Patient: Greater than 30
--- NOTE | 2024-02-15 14:35 | P.PN ---
Subjective Progress Note Date: 02/15/24 Principal diagnosis: Reason for follow-up sepsis UTI and pressure ulcer Patient is a 58-year-old female with a past medical history significant for diabetes mellitus reflux asthma spina bifida, this patient who is a bedbound and did have a sacral pressure ulcer with the previous episode of osteomyelitis patient has been brought into the hospital from the local [facility] after the patient was found to be lethargic mental status changes noticed to be septic require admission to the ICU blood cultures came back positive with MRSA. On today's visit that is 02/15/2024, the patient is afebrile, the patient is on room air and breathing comfortably, the Pt denies having any chest pain or cough, the patient denies having any abdominal pain no vomiting or any diarrhea or any worsening pain to the wound area. Patient white count is down to 8.2 creatinine is 1.63 blood culture with Staph aureus local cultures pending urine cultures pending Objective - Vital Signs Vital signs: Vital Signs Temp 99.4 F 02/15/24 08:00 Pulse 99 02/15/24 10:15 Resp 20 02/15/24 10:15 BP 116/55 02/15/24 10:15 Pulse Ox 96 02/15/24 10:15 FiO2 Intake & Output 02/14/24 02/15/24 02/15/24 18:59 06:59 18:59 Intake Total 905.745 8911.609 670.388 Output Total 1100 1670 550 Balance -909.904 319.609 120.388 Weight 83.915 kg 74.8 kg Intake: IV 110 40 .9 kvo 110 40 Intake, IV Titration 738.417 0127.609 630.388 Amount Dextrose 5% in Water 1, 750 500 000 ml @ 125 mls/hr IV . Q9H12M ALLIE with Sodium Bicarb (1 Meq/ml) 150 ml Rx#:[id number] Meropenem 1 gm In Sodium 33 33 100 Chloride 0.9% 100 ml @ 33 .3 mls/hr IVPB Q12HR ALLIE Rx#:[id number] Norepinephrine 32 mg In 27.096 6.609 30.388 Sodium Chloride 0.9% 218 ml @ 0.03 MCG/KG/MIN 1.18 mls/hr IV .Q24H ONE Rx#: [id number] Sodium Chloride 0.9% 1, 130 780 000 ml @ 130 mls/hr IV . Q7H42M STA Rx#:[id number] Blood Product 310 Rc As-1 Unit 310 [id number] Output: Urine 1100 1670 550 - Exam GENERAL DESCRIPTION: Middle-age female lying in bed in no distress RESPIRATORY SYSTEM: Unlabored breathing , decreased breath sounds at bases HEART: S1 S2 regular rate and rhythm , ABDOMEN: Soft , no tenderness EXTREMITIES: No edema feet - Labs CBC & Chem 7: 02/15/24 05:28 02/15/24 05:28 Labs: Abnormal Lab Results - Last 24 Hours (Table) 02/14/24 02/14/24 02/14/24 Range/Units 13:58 13:58 13:58 WBC (3.8-10.6) k/uL RBC 2.84 L (3.80-5.40) m/uL Hgb 6.8 L* (11.4-16.0) gm/dL Hct 23.2 L (34.0-46.0) % MCH 24.0 L (25.0-35.0) pg MCHC 29.3 L (31.0-37.0) g/dL RDW 20.1 H (11.5-15.5) % Plt Count 488 H (150-450) k/uL Potassium 5.6 H (3.5-5.1) mmol/L Chloride 117 H (98-107) mmol/L Carbon Dioxide 10 L (22-30) mmol/L BUN 108 H* (7-17) mg/dL Creatinine 2.03 H (0.52-1.04) mg/dL Glucose 107 H (74-99) mg/dL POC Glucose (mg/dL) (70-110) mg/dL Calcium 7.7 L (8.4-10.2) mg/dL Alkaline Phosphatase 456 H (38-126) U/L Albumin 2.4 L (3.5-5.0) g/dL Urine Appearance Turbid H (Clear) Urine Protein 2+ H (Negative) Urine Blood Small H (Negative) Ur Leukocyte Esterase Large H (Negative) Urine RBC 56 H (0-5) /hpf Urine WBC >182 H (0-5) /hpf Urine WBC Clumps Many H (None) /hpf Urine Bacteria Few H (None) /hpf Urine Mucus Few H (None) /hpf Crossmatch 02/14/24 02/14/24 02/15/24 Range/Units 16:09 17:53 00:25 WBC 12.2 H (3.8-10.6) k/uL RBC 3.28 L (3.80-5.40) m/uL Hgb 8.0 L (11.4-16.0) gm/dL Hct 27.9 L (34.0-46.0) % MCH 24.5 L (25.0-35.0) pg MCHC 28.8 L (31.0-37.0) g/dL RDW 19.8 H (11.5-15.5) % Plt Count 523 H (150-450) k/uL Potassium (3.5-5.1) mmol/L Chloride (98-107) mmol/L Carbon Dioxide (22-30) mmol/L BUN (7-17) mg/dL Creatinine (0.52-1.04) mg/dL Glucose (74-99) mg/dL POC Glucose (mg/dL) 144 H (70-110) mg/dL Calcium (8.4-10.2) mg/dL Alkaline Phosphatase (38-126) U/L Albumin (3.5-5.0) g/dL Urine Appearance (Clear) Urine Protein (Negative) Urine Blood (Negative) Ur Leukocyte Esterase (Negative) Urine RBC (0-5) /hpf Urine WBC (0-5) /hpf Urine WBC Clumps (None) /hpf Urine Bacteria (None) /hpf Urine Mucus (None) /hpf Crossmatch See Detail 02/15/24 02/15/24 02/15/24 Range/Units 05:28 05:28 06:27 WBC (3.8-10.6) k/uL RBC 3.20 L (3.80-5.40) m/uL Hgb 7.9 L (11.4-16.0) gm/dL Hct 27.4 L (34.0-46.0) % MCH 24.5 L (25.0-35.0) pg MCHC 28.6 L (31.0-37.0) g/dL RDW 19.8 H (11.5-15.5) % Plt Count 502 H (150-450) k/uL Potassium (3.5-5.1) mmol/L Chloride 119 H (98-107) mmol/L Carbon Dioxide 10 L (22-30) mmol/L BUN 92 H (7-17) mg/dL Creatinine 1.63 H (0.52-1.04) mg/dL Glucose 156 H (74-99) mg/dL POC Glucose (mg/dL) 164 H (70-110) mg/dL Calcium 7.7 L (8.4-10.2) mg/dL Alkaline Phosphatase (38-126) U/L Albumin (3.5-5.0) g/dL Urine Appearance (Clear) Urine Protein (Negative) Urine Blood (Negative) Ur Leukocyte Esterase (Negative) Urine RBC (0-5) /hpf Urine WBC (0-5) /hpf Urine WBC Clumps (None) /hpf Urine Bacteria (None) /hpf Urine Mucus (None) /hpf Crossmatch Microbiology - Last 24 Hours (Table) 02/14/24 14:32 Blood Culture Gram Stain - Preliminary Blood Blood Culture - Preliminary Molecular ID 02/14/24 18:16 Gram Stain - Preliminary Other - Other Assessment and Plan (1) Catheter-associated urinary tract infection Current Visit: Yes Status: Acute Code(s): T83.511A - I/I REACT D/T INDWELLING URETHRAL CATHETER, INIT; N39.0 - URINARY TRACT INFECTION, SITE NOT SPECIFIED SNOMED Code(s): 958833260 (2) Allergy to multiple antibiotics Current Visit: No Status: Acute Code(s): Z88.1 - ALLERGY STATUS TO OTHER ANTIBIOTIC AGENTS SNOMED Code(s): 791098508 (3) Pressure injury of sacral region, stage 4 Current Visit: No Status: Acute Code(s): L89.154 - PRESSURE ULCER OF SACRAL REGION, STAGE 4 SNOMED Code(s): 45648998864163 (4) Sepsis Current Visit: No Status: Acute Code(s): A41.9 - SEPSIS, UNSPECIFIED O RGANISM SNOMED Code(s): 59142320 (5) MRSA bacteremia Current Visit: Yes Status: Acute Code(s): R78.81 - BACTEREMIA; B95.62 - METHICILLIN RESIS STAPH INFCT CA[facility]ING [facility] Code(s): 06700015036561215 Plan: 1patient presented to hospital with sepsis in this patient who did have a hypotension tachycardia likely multifactorial more likely related to the catheter associated tract infection as the patient has significantly positive UA and a suprapubic catheter patient also have a pressure ulcer to the sacral area and the right posterior thigh but no significant slough tissue was noticed 2-patient with multiple antibiotic ALLERGIES that would limit the number of antibiotic safe to use 3--local wound care with the Aquacel silver dressing change every 48 hours 4patient did have a positive blood culture with MRSA source possible related to the wound versus urinary awaiting local cultures daptomycin has been added because of her vancomycin allergy blood culture repeat in the a.m. to document clearance of her bacteremia we will also continue meropenem until her cultures are finalized. Family at the bedside questions were answered Dictation was produced using [id number] dictation software. please excuse any grammatical, word or spelling errors. Time with Patient: Less than 30
[2024-02-15] MEDS: HYDROcodone/APAP 5-325MG 1 EACH TAB PO PRN (15:47)
[2024-02-15 16:21] LABS: Glucose,Whole Blood 192 mg/dL (70-110)
[2024-02-15] MEDS: NOREPINEPHRINE 8 MG in SODIUM CHLORIDE 0.9% 250 ML IV SCH (16:31)
[2024-02-15] MEDS: FOLIC ACID 1 MG TAB PO SCH (21:20)
[2024-02-15] MEDS: ASCORBIC ACID 500 MG TAB PO SCH (21:21)
[2024-02-15] MEDS: MULTIVITAMINS, THERA 1 EACH TAB PO SCH (21:21)
[2024-02-15 23:15] LABS: Glucose,Whole Blood 213 mg/dL (70-110)
[2024-02-16] MEDS: ACETAMINOPHEN TAB 325 MG TAB PO PRN (01:30)
[2024-02-16 06:12] LABS: Anisocytosis Slight; Basophils % (A) 0 %; Eosinophils % (A) 0 %; HGB 7.1 gm/dL (11.4-16.0); Hypochromasia Marked; Lymphocytes % (A) 25 %; MCH 24.1 pg (25.0-35.0); MCHC 29.7 g/dL (31.0-37.0); MCV 81.2 fL (80.0-100.0); Mean Platelet Volume 7.5; Microcytosis Slight; Monocytes # (A) 0.3 k/uL (0-1.0); Monocytes % (A) 7 %; Neutrophils # (A) 2.6 k/uL (1.3-7.7); Neutrophils % (A) 64 %; Platelet Count 342 k/uL (150-450); Poikilocytosis Moderate; RBC 2.96 m/uL (3.80-5.40); RDW 19.9 % (11.5-15.5)
[2024-02-16 06:31] LABS: African American GFR (CKD) 61 (>60 ml/min/1.73 sqM); Anion Gap 6 mmol/L; Blood Urea Nitrogen 78 mg/dL (7-17); Calcium 6.7 mg/dL (8.4-10.2); Carbon Dioxide 23 mmol/L (22-30); Chloride 112 mmol/L (98-107); Glucose 174 mg/dL (74-99); Non-African American GFR(CKD) 53 (>60 ml/min/1.73 sqM); Potassium 3.3 mmol/L (3.5-5.1); Sodium 141 mmol/L (137-145)
--- NOTE | 2024-02-16 07:20 | P.GSCN ---
History of Present Illness Consult date: 02/15/24 Reason for Consult: Hydronephrosis, UTI Requesting physician: To Carter History of present illness: Patient is a 58-year-old white female well-known to me, though I have not seen her in a number of years. 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 She underwent ileal conduit urinary diversion at age 3, and subsequently underwent an [place] pouch in 1988. Her cabazon bladder has not been removed. Her [place] pouch, which is supposed to be a continent neobladder, has been incontinent since at least 1996, requiring the use of a stomal appliance. However, she previously catheterized her stoma up to 4 times daily with catheterization volumes of 250 to 350 cc. She has known reflux into the ureters. Ultrasound in 2008 showed minimal left hydronephrosis, no right hydronephrosis. A CT scan performed in May 2023 showed bilateral hydroureteronephrosis, as well as a large right lower pole renal calculus. Her renal function was normal at that time. She has a history of previous kidney stones, for which she previously took potassium citrate (for hypocitraturia) and HCTZ (for hypercalciuria). She resides in a [facility] and was transferred to the hospital with altered mental status and hypotension. She is currently hospitalized in the ICU and being treated for sepsis, possibly of urinary origin. Blood cultures have shown staph aureus mecA/C+, staph epi mecA/C+ and Group B Strep, none of which are common urinary pathogens. Review of Systems - Constitutional Reports lethargy - Genitourinary Genitourinary: Reports as per HPI - Psychiatric Reports confusion Past Medical History Past Medical History: Asthma, Diabetes Mellitus, GERD/Reflux, Musculoskeletal Disorder, Neurologic Disorder, Pneumonia, Renal Disease, Sleep Apnea/CPAP/BIPAP Additional Past Medical History / Comment(s): 08-09-15 admitted with cellulitis of external nose. other pst medical hx includes: hx. 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 does have visiting nurses wed-,wednesday. Smoking Status: Never smoker Past Alcohol Use History: None Reported Past Drug Use History: None Reported - Past Family History Father Family Medical History: Hypertension Additional Family Medical History / Comment(s): gout, heart murmur, rheumatic fever as child, tia Mother Family Medical History: Cancer, Hypertension Additional Family Medical History / Comment(s): interstitial cystitis, breast cancer x2, diet controlled diabetic, hiatal hernia Medications and Allergies Home Medications Medication Instructions Recorded Confirmed Type allopurinoL [Zyloprim] 300 mg PO DAILY 10/04/14 02/14/24 History Calcium Carbonate 500 mg PO DAILY 06/09/23 02/14/24 History Cholestyramine (with Sugar) 4 gm PO TID PRN 06/09/23 02/14/24 History [Questran Packet] Lidocaine Viscous 2% [Xylocaine 5 ml PO Q4H PRN 06/09/23 02/14/24 History Viscous] Magnesium Oxide [Mag-Ox] 400 mg PO DAILY 06/09/23 02/14/24 History Menthol [Icy Hot] 2 patch TRANSDERM DAILY 06/09/23 02/14/24 History Thiamine [Vitamin B-1] 100 mg PO DAILY 06/09/23 02/14/24 History Ascorbic Acid [Vitamin C] 500 mg PO HS 09/16/23 02/14/24 History Folic Acid 0.4 mg PO BID 09/16/23 02/14/24 History Heparin Lock Flush Solution 50 unit IV Q24H PRN 09/16/23 02/14/24 History 10unit/Ml Heparin Lock Flush Solution 50 units IV QMONTHLY 09/16/23 02/14/24 History 10unit/Ml Multivitamins, Thera [Multivitamin 1 tab PO HS 09/16/23 02/14/24 History (formulary)] Naloxone HCl 0.4 mg IM ONCE PRN 09/16/23 02/14/24 History Naloxone HCl [Narcan] 4 mg NASAL ONCE PRN 09/16/23 02/14/24 History Saccharomyces Boulardii (Unknown 1 cap PO BID 09/16/23 02/14/24 History Strength) Sodium Chloride 0.9 % (Flush) 10 ml IV Q24H PRN 09/16/23 02/14/24 History [Aquastat (Flush)] Sodium Chloride 0.9 % (Flush) 10 ml IV QMONTHLY 09/16/23 02/14/24 History [Aquastat (Flush)] Torsemide [Demadex] 60 mg PO DAILY@0700 09/16/23 02/14/24 History Morphine Sulfate ER [Ms Contin] 15 mg PO DAILY@1500 #3 tab 09/18/23 02/14/24 Rx Butalb/Acetaminophen/Caffeine 1 cap PO Q4HR PRN 02/14/24 02/14/24 History [Fioricet 50-300-40 mg Capsule] Darbepoetin Dino [Aranesp] 100 mcg SQ Q14D 02/14/24 02/14/24 History Famotidine [Pepcid] 20 mg PO BID@0700,1900 02/14/24 02/14/24 History Ferrous Sulfate [Iron (65 MG 325 mg PO DAILY 02/14/24 02/14/24 History Elemental)] HYDROcodone/APAP 5-325MG [[place] 1 tab PO Q4H 02/14/24 02/14/24 History 5-325] Menthol [Biofreeze] 1 applic TOPICAL TID@0700,1300,1900 02/14/24 02/14/24 History Ondansetron [Zofran] 4 mg PO Q6H PRN 02/14/24 02/14/24 History Allergies Allergy/AdvReac Type Severity Reaction Status Date / Time amoxicillin trihydrate Allergy Rash/Hives Verified 02/14/24 14:04 [From Augmentin] banana Allergy Unknown Verified 02/14/24 14:04 chestnut Allergy Unknown Verified 02/14/24 14:04 ciprofloxacin [From Cipro] Allergy Rash/Hives Verified 02/14/24 14:04 ciprofloxacin HCl Allergy Rash/Hives Verified 02/14/24 14:04 [From Cipro] Collagenase Clostridium Allergy Rash/Hives Verified 02/14/24 14:04 histolyticu kiwi Allergy Unknown Verified 02/14/24 14:04 Latex, Natural Rubber Allergy Anaphylaxis Verified 02/14/24 14:04 methylprednisolone Allergy Rash/Hives Verified 02/14/24 14:04 [From Solu-Medrol] midazolam Allergy Unknown Verified 02/14/24 14:04 nitrofurantoin Allergy Rash/Hives Verified 02/14/24 14:04 macrocrystalline [From Macrodantin] oxacillin Allergy Unknown Verified 02/14/24 14:04 potassium clavulanate Allergy Rash/Hives Verified 02/14/24 14:04 [From Augmentin] Sulfa (Sulfonamide Allergy Rash/Hives, Verified 02/14/24 14:04 Antibiotics) high blood pressure vancomycin Allergy Anaphylaxis Verified 02/14/24 14:04 Beef Containing Products AdvReac Diarrhea Verified 02/14/24 14:04 [Beef] sucralose AdvReac Diarrhea Verified 02/14/24 14:04 [From Splenda (sucralose)] COLLAGEN Allergy Rash/Hives Uncoded 02/14/24 14:04 Surgical - Exam Vital Signs Temp Pulse Resp BP Pulse Ox 98.5 F 102 H 17 91/45 95 02/14/24 13:15 02/14/24 13:15 02/14/24 13:15 02/14/24 13:15 02/14/24 13:15 - General well developed, well nourished, no distress - Respiratory normal respiratory effort - Abdomen Soft, non-tender, non-distended. An appliance is applied over a right sided stoma, draining clear yellow urine. Results - Labs 02/16/24 05:43 02/16/24 05:43 Abnormal Lab Results - Last 24 Hours (Table) 02/14/24 02/14/24 02/14/24 Range/Units 13:58 13:58 13:58 WBC (3.8-10.6) k/uL RBC 2.84 L (3.80-5.40) m/uL Hgb 6.8 L* (11.4-16.0) gm/dL Hct 23.2 L (34.0-46.0) % MCH 24.0 L (25.0-35.0) pg MCHC 29.3 L (31.0-37.0) g/dL RDW 20.1 H (11.5-15.5) % Plt Count 488 H (150-450) k/uL Potassium 5.6 H (3.5-5.1) mmol/L Chloride 117 H (98-107) mmol/L Carbon Dioxide 10 L (22-30) mmol/L BUN 108 H* (7-17) mg/dL Creatinine 2.03 H (0.52-1.04) mg/dL Glucose 107 H (74-99) mg/dL POC Glucose (mg/dL) (70-110) mg/dL Calcium 7.7 L (8.4-10.2) mg/dL Alkaline Phosphatase 456 H (38-126) U/L Albumin 2.4 L (3.5-5.0) g/dL Urine Appearance Turbid H (Clear) Urine Protein 2+ H (Negative) Urine Blood Small H (Negative) Ur Leukocyte Esterase Large H (Negative) Urine RBC 56 H (0-5) /hpf Urine WBC >182 H (0-5) /hpf Urine WBC Clumps Many H (None) /hpf Urine Bacteria Few H (None) /hpf Urine Mucus Few H (None) /hpf Crossmatch 02/14/24 02/14/24 02/15/24 Range/Units 16:09 17:53 00:25 WBC 12.2 H (3.8-10.6) k/uL RBC 3.28 L (3.80-5.40) m/uL Hgb 8.0 L (11.4-16.0) gm/dL Hct 27.9 L (34.0-46.0) % MCH 24.5 L (25.0-35.0) pg MCHC 28.8 L (31.0-37.0) g/dL RDW 19.8 H (11.5-15.5) % Plt Count 523 H (150-450) k/uL Potassium (3.5-5.1) mmol/L Chloride (98-107) mmol/L Carbon Dioxide (22-30) mmol/L BUN (7-17) mg/dL Creatinine (0.52-1.04) mg/dL Glucose (74-99) mg/dL POC Glucose (mg/dL) 144 H (70-110) mg/dL Calcium (8.4-10.2) mg/dL Alkaline Phosphatase (38-126) U/L Albumin (3.5-5.0) g/dL Urine Appearance (Clear) Urine Protein (Negative) Urine Blood (Negative) Ur Leukocyte Esterase (Negative) Urine RBC (0-5) /hpf Urine WBC (0-5) /hpf Urine WBC Clumps (None) /hpf Urine Bacteria (None) /hpf Urine Mucus (None) /hpf Crossmatch See Detail 02/15/24 02/15/24 02/15/24 Range/Units 05:28 05:28 06:27 WBC (3.8-10.6) k/uL RBC 3.20 L (3.80-5.40) m/uL Hgb 7.9 L (11.4-16.0) gm/dL Hct 27.4 L (34.0-46.0) % MCH 24.5 L (25.0-35.0) pg MCHC 28.6 L (31.0-37.0) g/dL RDW 19.8 H (11.5-15.5) % Plt Count 502 H (150-450) k/uL Potassium (3.5-5.1) mmol/L Chloride 119 H (98-107) mmol/L Carbon Dioxide 10 L (22-30) mmol/L BUN 92 H (7-17) mg/dL Creatinine 1.63 H (0.52-1.04) mg/dL Glucose 156 H (74-99) mg/dL POC Glucose (mg/dL) 164 H (70-110) mg/dL Calcium 7.7 L (8.4-10.2) mg/dL Alkaline Phosphatase (38-126) U/L Albumin (3.5-5.0) g/dL Urine Appearance (Clear) Urine Protein (Negative) Urine Blood (Negative) Ur Leukocyte Esterase (Negative) Urine RBC (0-5) /hpf Urine WBC (0-5) /hpf Urine WBC Clumps (None) /hpf Urine Bacteria (None) /hpf Urine Mucus (None) /hpf Crossmatch Diabetes panel 02/14/24 02/15/24 Range/Units 13:58 05:28 Sodium 139 143 (137-145) mmol/L Potassium 5.6 H 4.3 (3.5-5.1) mmol/L Chloride 117 H 119 H (98-107) mmol/L Carbon Dioxide 10 L 10 L (22-30) mmol/L BUN 108 H* 92 H (7-17) mg/dL Creatinine 2.03 H 1.63 H (0.52-1.04) mg/dL Glucose 107 H 156 H (74-99) mg/dL Calcium 7.7 L 7.7 L (8.4-10.2) mg/dL AST 32 (14-36) U/L ALT 25 (4-34) U/L Alkaline Phosphatase 456 H (38-126) U/L Total Protein 6.8 (6.3-8.2) g/dL Albumin 2.4 L (3.5-5.0) g/dL Calcium panel 02/14/24 02/15/24 Range/Units 13:58 05:28 Calcium 7.7 L 7.7 L (8.4-10.2) mg/dL Albumin 2.4 L (3.5-5.0) g/dL Pituitary panel 02/14/24 02/15/24 Range/Units 13:58 05:28 Sodium 139 143 (137-145) mmol/L Potassium 5.6 H 4.3 (3.5-5.1) mmol/L Chloride 117 H 119 H (98-107) mmol/L Carbon Dioxide 10 L 10 L (22-30) mmol/L BUN 108 H* 92 H (7-17) mg/dL Creatinine 2.03 H 1.63 H (0.52-1.04) mg/dL Glucose 107 H 156 H (74-99) mg/dL Calcium 7.7 L 7.7 L (8.4-10.2) mg/dL Adrenal panel 02/14/24 02/15/24 Range/Units 13:58 05:28 Sodium 139 143 (137-145) mmol/L Potassium 5.6 H 4.3 (3.5-5.1) mmol/L Chloride 117 H 119 H (98-107) mmol/L Carbon Dioxide 10 L 10 L (22-30) mmol/L BUN 108 H* 92 H (7-17) mg/dL Creatinine 2.03 H 1.63 H (0.52-1.04) mg/dL Glucose 107 H 156 H (74-99) mg/dL Calcium 7.7 L 7.7 L (8.4-10.2) mg/dL Total Bilirubin 0.3 (0.2-1.3) mg/dL AST 32 (14-36) U/L ALT 25 (4-34) U/L Alkaline Phosphatase 456 H (38-126) U/L Total Protein 6.8 (6.3-8.2) g/dL Albumin 2.4 L (3.5-5.0) g/dL - Imaging CT scan - abdomen: report reviewed, image reviewed Assessment and Plan (1) Neurogenic bladder Current Visit: Yes Status: Acute Code(s): N31.9 - NEUROMUSCULAR DYSFUNCTION OF BLADDER, UNSPECIFIED SNOMED Code(s): 825096126 (2) Unspecified hydronephrosis Current Visit: Yes Status: Acute Code(s): N13.30 - UNSPECIFIED HYDRONEPH ROSIS SNOMED Code(s): 96986492 Plan: Continue broad-spectrum antibiotics, pending the final urine culture result. The urine specimen was obtained from an ostomy bag, so the presence of bacteria should not automatically imply an infection. The patient's neobladder could be catheterized, to improve emptying, but for now I would observe her and consider this only if she develops significant pain or her serum creatinine level fails to return to baseline. Time with Patient: Greater than 30
[2024-02-16] MEDS: THIAMINE 100 MG TAB PO SCH (09:01)
--- NOTE | 2024-02-16 09:14 | P.CONS ---
History of Present Illness - Reason for Consult Consult date: 02/16/24 wound care - History of Present Illness This is a 58-year-old patient known to the wound care center with history of spina bifida, diabetes, pressure ulcer ulceration to left buttocks. Patient is noncompliant does not follow recommendations for offloading or pressure. Patient also does not continue with advanced wound care once it is established.Patient has a ulceration to the left buttocks which is a stage III pressure ulcer measuring approximately 7 x 7 x 4 cm with undermining noted. Patient has significant amount of nonviable tissue with minimal granulation noted. Wound edges are not attached to the wound base. Patient also has a sacral midline ulceration measuring approximately 10 x 10 x 5 cm with undermining no tunneling noted. Slough and nonviable tissue present granulation seen throughout the wound bed. Undermining noted. Wound edges are not attached to the wound base. Review Of Systems: Constitutional: No fever, no chills, no night sweats. No weight change. No weakness, fatigue or lethargy. No daytime sleepiness. Integumentary:reports wounds, no lesions. No rash or pruritus. No unusual br uising. No change in hair or nails. Physical exam: General Appearance: Alert, cooperative, no distress, appears stated age. Skin: See HPI all other Skin color, texture, tugor normal, no rashes or lesions. Neurologic: Alert oriented x3 Assessment: 1. Stage III pressure ulcer sacrum 2. Stage III pressure ulcer left buttocks 3. Diabetes with skin ulceration Plan: 1. Apply negative pressure wound VAC at 150 mmHg of continuous pressure to the sacral and left buttocks ulceration. Bridge the ulcerations. Utilize DuoDERM to the periwound for skin protection. Change the wound VAC Wednesday. Patient would benefit from advanced wound care and wound care setting. Thank you for the consultation any questions please contact the wound care center DNP note has been reviewed and discussed with Dr. Aldridge and the impression and plan of care has been directed as dictated. Past Medical History Past Medical History: Asthma, Diabetes Mellitus, GERD/Reflux, Musculoskeletal Disorder, Neurologic Disorder, Pneumonia, Renal Disease, Sleep Apnea/CPAP/BIPAP Additional Past Medical History / Comment(s): 08-09-15 admitted with cellulitis of external nose. other pst medical hx includes: hx. 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 does have visiting nurses wed-,wednesday. Smoking Status: Never smoker Past Alcohol Use History: None Reported Past Drug Use History: None Reported - Past Family History Father Family Medical History: Hypertension Additional Family Medical History / Comment(s): gout, heart murmur, rheumatic fever as child, tia Mother Family Medical History: Cancer, Hypertension Additional Family Medical History / Comment(s): interstitial cystitis, breast cancer x2, diet controlled diabetic, hiatal hernia Medications and Allergies Home Medications Medication Instructions Recorded Confirmed Type allopurinoL [Zyloprim] 300 mg PO DAILY 10/04/14 02/14/24 History Calcium Carbonate 500 mg PO DAILY 06/09/23 02/14/24 History Cholestyramine (with Sugar) 4 gm PO TID PRN 06/09/23 02/14/24 History [Questran Packet] Lidocaine Viscous 2% [Xylocaine 5 ml PO Q4H PRN 06/09/23 02/14/24 History Viscous] Magnesium Oxide [Mag-Ox] 400 mg PO DAILY 06/09/23 02/14/24 History Menthol [Icy Hot] 2 patch TRANSDERM DAILY 06/09/23 02/14/24 History Thiamine [Vitamin B-1] 100 mg PO DAILY 06/09/23 02/14/24 History Ascorbic Acid [Vitamin C] 500 mg PO HS 09/16/23 02/14/24 History Folic Acid 0.4 mg PO BID 09/16/23 02/14/24 History Heparin Lock Flush Solution 50 unit IV Q24H PRN 09/16/23 02/14/24 History 10unit/Ml Heparin Lock Flush Solution 50 units IV QMONTHLY 09/16/23 02/14/24 History 10unit/Ml Multivitamins, Thera [Multivitamin 1 tab PO HS 09/16/23 02/14/24 History (formulary)] Naloxone HCl 0.4 mg IM ONCE PRN 09/16/23 02/14/24 History Naloxone HCl [Narcan] 4 mg NASAL ONCE PRN 09/16/23 02/14/24 History Saccharomyces Boulardii (Unknown 1 cap PO BID 09/16/23 02/14/24 History Strength) Sodium Chloride 0.9 % (Flush) 10 ml IV Q24H PRN 09/16/23 02/14/24 History [Aquastat (Flush)] Sodium Chloride 0.9 % (Flush) 10 ml IV QMONTHLY 09/16/23 02/14/24 History [Aquastat (Flush)] Torsemide [Demadex] 60 mg PO DAILY@0700 09/16/23 02/14/24 History Morphine Sulfate ER [Ms Contin] 15 mg PO DAILY@1500 #3 tab 09/18/23 02/14/24 Rx Butalb/Acetaminophen/Caffeine 1 cap PO Q4HR PRN 02/14/24 02/14/24 History [Fioricet 50-300-40 mg Capsule] Darbepoetin Dino [Aranesp] 100 mcg SQ Q14D 02/14/24 02/14/24 History Famotidine [Pepcid] 20 mg PO BID@0700,1900 02/14/24 02/14/24 History Ferrous Sulfate [Iron (65 MG 325 mg PO DAILY 02/14/24 02/14/24 History Elemental)] HYDROcodone/APAP 5-325MG [[place] 1 tab PO Q4H 02/14/24 02/14/24 History 5-325] Menthol [Biofreeze] 1 applic TOPICAL TID@0700,1300,1900 02/14/24 02/14/24 History Ondansetron [Zofran] 4 mg PO Q6H PRN 02/14/24 02/14/24 History Allergies Allergy/AdvReac Type Severity Reaction Status Date / Time amoxicillin trihydrate Allergy Rash/Hives Verified 02/14/24 14:04 [From Augmentin] banana Allergy Unknown Verified 02/14/24 14:04 chestnut Allergy Unknown Verified 02/14/24 14:04 ciprofloxacin [From Cipro] Allergy Rash/Hives Verified 02/14/24 14:04 ciprofloxacin HCl Allergy Rash/Hives Verified 02/14/24 14:04 [From Cipro] Collagenase Clostridium Allergy Rash/Hives Verified 02/14/24 14:04 histolyticu kiwi Allergy Unknown Verified 02/14/24 14:04 Latex, Natural Rubber Allergy Anaphylaxis Verified 02/14/24 14:04 methylprednisolone Allergy Rash/Hives Verified 02/14/24 14:04 [From Solu-Medrol] midazolam Allergy Unknown Verified 02/14/24 14:04 nitrofurantoin Allergy Rash/Hives Verified 02/14/24 14:04 macrocrystalline [From Macrodantin] oxacillin Allergy Unknown Verified 02/14/24 14:04 potassium clavulanate Allergy Rash/Hives Verified 02/14/24 14:04 [From Augmentin] Sulfa (Sulfonamide Allergy Rash/Hives, Verified 02/14/24 14:04 Antibiotics) high blood pressure vancomycin Allergy Anaphylaxis Verified 02/14/24 14:04 Beef Containing Products AdvReac Diarrhea Verified 02/14/24 14:04 [Beef] sucralose AdvReac Diarrhea Verified 02/14/24 14:04 [From Splenda (sucralose)] COLLAGEN Allergy Rash/Hives Uncoded 02/14/24 14:04 Physical Exam Vitals: Vital Signs Temp Pulse Resp BP Pulse Ox 02/16/24 07:00 113 H 28 H 131/61 94 L 02/16/24 06:30 107 H 25 H 111/45 94 L 02/16/24 06:00 105 H 18 112/48 90 L 02/16/24 05:30 106 H 29 H 111/47 90 L 02/16/24 05:00 104 H 30 H 118/48 86 L 02/16/24 04:30 109 H 23 104/45 90 L 02/16/24 04:00 99.4 F 105 H 29 H 108/46 87 L 02/16/24 03:30 105 H 31 H 123/53 88 L 02/16/24 03:00 112 H 28 H 123/53 89 L 02/16/24 02:30 114 H 25 H 136/66 92 L 02/16/24 02:00 113 H 19 135/60 90 L 02/16/24 01:30 115 H 23 144/98 92 L 02/16/24 01:00 102.9 F H 115 H 19 137/94 93 L 02/16/24 00:30 112 H 19 128/67 92 L 02/16/24 00:00 99.5 F 106 H 19 139/60 92 L 02/15/24 23:30 108 H 18 132/64 91 L 02/15/24 23:00 111 H 20 113/54 91 L 02/15/24 22:30 107 H 20 134/61 91 L 02/15/24 22:06 106 H 17 134/61 93 L 02/15/24 22:00 105 H 18 144/73 91 L 02/15/24 21:30 109 H 20 126/88 97 02/15/24 21:00 102 H 18 123/60 93 L 02/15/24 20:30 102 H 17 106/48 95 02/15/24 20:00 99.4 F 98 24 110/51 90 L 02/15/24 19:30 101 H 25 H 110/50 91 L 02/15/24 19:00 104 H 23 106/47 91 L 02/15/24 18:30 105 H 24 130/57 93 L 02/15/24 18:00 120 H 29 H 106/59 92 L 02/15/24 17:30 111 H 26 H 107/53 91 L 02/15/24 17:00 111 H 22 108/50 91 L 02/15/24 16:30 107 H 21 118/63 91 L 02/15/24 16:00 110 H 19 109/52 91 L 02/15/24 15:30 109 H 22 103/45 95 02/15/24 15:00 106 H 22 129/66 90 L 02/15/24 14:30 101 H 23 112/60 94 L 02/15/24 14:00 112 H 22 107/55 90 L 02/15/24 13:30 110 H 22 112/58 92 L 02/15/24 13:15 110 H 22 122/67 93 L 02/15/24 13:00 110 H 24 124/75 96 02/15/24 12:45 112 H 24 118/63 96 02/15/24 12:30 107 H 13 126/56 95 02/15/24 12:15 105 H 23 136/71 95 02/15/24 12:00 99.2 F 98 11 L 124/79 97 02/15/24 11:45 102 H 19 116/61 96 02/15/24 11:30 99 28 H 115/55 95 02/15/24 11:15 97 20 111/58 94 L 02/15/24 11:00 101 H 17 111/59 94 L 02/15/24 10:45 94 19 116/57 94 L 02/15/24 10:30 93 20 119/57 94 L 02/15/24 10:15 99 20 116/55 96 02/15/24 10:00 105 H 19 116/60 94 L 02/15/24 09:45 101 H 16 123/70 95 02/15/24 09:30 102 H 28 H 118/54 96 02/15/24 09:15 109 H 15 118/54 97 Intake and Output 02/15/24 02/16/24 02/16/24 22:59 06:59 14:59 Intake Total 1605 1045 135 Output Total 675 560 80 Balance 930 485 55 Intake: IV 80 70 10 .9 kvo 80 70 10 Intake, IV Titration 975 875 125 Amount Dextrose 5% in Water 1, 875 875 125 000 ml @ 125 mls/hr IV . Q9H12M ALLIE with Sodium Bicarb (1 Meq/ml) 150 ml Rx#:[id number] Meropenem 1 gm In Sodium 100 Chloride 0.9% 100 ml @ 33 .3 mls/hr IVPB Q12H ALLIE Rx#:[id number] Oral 550 100 Output: Urine 675 560 80 Other: # Bowel Movements 1 Weight 75 kg Results CBC & Chem 7: 02/16/24 05:43 02/16/24 05:43 Labs: Abnormal Lab Results - Last 24 Hours (Table) 02/15/24 02/15/24 02/15/24 Range/Units 05:28 11:41 16:19 RBC (3.80-5.40) m/uL Hgb (11.4-16.0) gm/dL Hct (34.0-46.0) % MCH (25.0-35.0) pg MCHC (31.0-37.0) g/dL RDW (11.5-15.5) % Potassium (3.5-5.1) mmol/L Chloride (98-107) mmol/L BUN (7-17) mg/dL Creatinine (0.52-1.04) mg/dL Glucose (74-99) mg/dL POC Glucose (mg/dL) 177 H 192 H (70-110) mg/dL Calcium (8.4-10.2) mg/dL Procalcitonin 0.51 H (0.02-0.50) ng/mL 02/15/24 02/16/24 02/16/24 Range/Units 23:13 05:43 05:43 RBC 2.96 L (3.80-5.40) m/uL Hgb 7.1 L (11.4-16.0) gm/dL Hct 24.0 L (34.0-46.0) % MCH 24.1 L (25.0-35.0) pg MCHC 29.7 L (31.0-37.0) g/dL RDW 19.9 H (11.5-15.5) % Potassium 3.3 L (3.5-5.1) mmol/L Chloride 112 H (98-107) mmol/L BUN 78 H (7-17) mg/dL Creatinine 1.15 H (0.52-1.04) mg/dL Glucose 174 H (74-99) mg/dL POC Glucose (mg/dL) 213 H (70-110) mg/dL Calcium 6.7 L (8.4-10.2) mg/dL Procalcitonin (0.02-0.50) ng/mL Microbiology - Last 24 Hours (Table) 02/14/24 13:58 Urine Culture - Final Urine,Catheterized 02/14/24 14:32 Blood Culture Gram Stain - Preliminary Blood Blood Culture - Preliminary Molecular ID 02/14/24 18:16 Gram Stain - Preliminary Other - Other Assessment and Plan (1) Pressure ulcer of sacral region, stage 3 Current Visit: Yes Status: Acute Code(s): L89.153 - PRESSURE ULCER OF SACRAL REGION, STAGE 3 SNOMED Code(s): 70291415969122 (2) Pressure ulcer of left buttock, stage 3 Current Visit: Yes Status: Acute Code(s): L89.323 - PRESSURE ULCER OF LEFT BUTTOCK, STAGE 3 SNOMED Code(s): 04286005683313 (3) Type 2 diabetes mellitus with other skin ulcer Current Visit: No Status: Acute Code(s): E11.622 - TYPE 2 DIABETES MELLITUS WITH OTHER SKIN ULCER; L98.499 - NON-PRESSURE CHRONIC ULCER OF SKIN OF SITES W UNSP SEVERITY SNOMED Code(s): 430208667473156
[2024-02-16] MEDS ORDERED: Potassium Replacement Protocol 1 EACH MISC MISCELLANE PRN (09:35)
--- NOTE | 2024-02-16 09:49 | P.PN ---
Subjective Progress Note Date: 02/16/24 Principal diagnosis: Hydronephrosis, possible UTI The patient has undergone Ariadne pouch urinary diversion. This is designed to be a continent reservoir with a catheterizable stoma, but due to leakage she requires an ostomy bag. The reservoir empties incompletely and the patient previously catheterized. She remains somewhat confused. She does report mild right side/flank discomfort. Objective - Vital Signs Vital signs: Vital Signs Temp 98.6 F 02/16/24 08:00 Pulse 98 02/16/24 09:00 Resp 21 02/16/24 09:00 BP 133/65 02/16/24 09:00 Pulse Ox 95 02/16/24 09:00 FiO2 Intake & Output 02/15/24 02/16/24 02/16/24 18:59 06:59 18:59 Intake Total 2533.883 1735 405 Output Total 1100 935 380 Balance 1433.883 800 25 Weight 74.8 kg 75 kg Intake: IV 120 110 280 .9 kvo 120 110 10 Dextrose 5% in Water 1, 250 000 ml @ 125 mls/hr IV . Q9H12M ALLIE with Sodium Bicarb (1 Meq/ml) 150 ml Rx#:[id number] Invasive Line 2 20 Intake, IV Titration 3983.387 2960 125 Amount DAPTOmycin 450 mg In 100 Sodium Chloride 0.9% 50 ml @ 100 mls/hr IVPB Q24H ALLIE Rx#:[id number] Dextrose 5% in Water 1, 1375 1375 125 000 ml @ 125 mls/hr IV . Q9H12M ALLIE with Sodium Bicarb (1 Meq/ml) 150 ml Rx#:[id number] Meropenem 1 gm In Sodium 100 Chloride 0.9% 100 ml @ 33 .3 mls/hr IVPB Q12H ALLIE Rx#:[id number] Meropenem 1 gm In Sodium 100 Chloride 0.9% 100 ml @ 33 .3 mls/hr IVPB Q12HR ALLIE Rx#:[id number] Norepinephrine 32 mg In 38.883 Sodium Chloride 0.9% 218 ml @ 0.03 MCG/KG/MIN 1.18 mls/hr IV .Q24H ONE Rx#: [id number] Oral 700 250 0 Output: Urine 1100 935 380 Other: # Bowel Movements 1 - Constitutional General appearance: Present: average body habitus, cooperative, no acute distress - Gastrointestinal Gastrointestinal Comment(s): Soft, non-distended. No tenderness. Right sided stoma. - Labs CBC & Chem 7: 02/16/24 05:43 02/16/24 05:43 Labs: Abnormal Lab Results - Last 24 Hours (Table) 02/15/24 02/15/24 02/15/24 Range/Units 05:28 11:41 16:19 RBC (3.80-5.40) m/uL Hgb (11.4-16.0) gm/dL Hct (34.0-46.0) % MCH (25.0-35.0) pg MCHC (31.0-37.0) g/dL RDW (11.5-15.5) % Potassium (3.5-5.1) mmol/L Chloride (98-107) mmol/L BUN (7-17) mg/dL Creatinine (0.52-1.04) mg/dL Glucose (74-99) mg/dL POC Glucose (mg/dL) 177 H 192 H (70-110) mg/dL Hemoglobin A1c (<=6.0) % Calcium (8.4-10.2) mg/dL Procalcitonin 0.51 H (0.02-0.50) ng/mL 02/15/24 02/16/24 02/16/24 Range/Units 23:13 05:43 05:43 RBC 2.96 L (3.80-5.40) m/uL Hgb 7.1 L (11.4-16.0) gm/dL Hct 24.0 L (34.0-46.0) % MCH 24.1 L (25.0-35.0) pg MCHC 29.7 L (31.0-37.0) g/dL RDW 19.9 H (11.5-15.5) % Potassium (3.5-5.1) mmol/L Chloride (98-107) mmol/L BUN (7-17) mg/dL Creatinine (0.52-1.04) mg/dL Glucose (74-99) mg/dL POC Glucose (mg/dL) 213 H (70-110) mg/dL Hemoglobin A1c 8.2 H (<=6.0) % Calcium (8.4-10.2) mg/dL Procalcitonin (0.02-0.50) ng/mL 02/16/24 Range/Units 05:43 RBC (3.80-5.40) m/uL Hgb (11.4-16.0) gm/dL Hct (34.0-46.0) % MCH (25.0-35.0) pg MCHC (31.0-37.0) g/dL RDW (11.5-15.5) % Potassium 3.3 L (3.5-5.1) mmol/L Chloride 112 H (98-107) mmol/L BUN 78 H (7-17) mg/dL Creatinine 1.15 H (0.52-1.04) mg/dL Glucose 174 H (74-99) mg/dL POC Glucose (mg/dL) (70-110) mg/dL Hemoglobin A1c (<=6.0) % Calcium 6.7 L (8.4-10.2) mg/dL Procalcitonin (0.02-0.50) ng/mL Microbiology - Last 24 Hours (Table) 02/14/24 13:58 Urine Culture - Final Urine,Catheterized 02/14/24 14:32 Blood Culture Gram Stain - Preliminary Blood Blood Culture - Preliminary Molecular ID 02/14/24 18:16 Gram Stain - Preliminary Other - Other Assessment and Plan (1) Neurogenic bladder Current Visit: Yes Status: Acute Code(s): N31.9 - NEUROMUSCULAR DYSFUNCTION OF BLADDER, UNSPECIFIED SNOMED Code(s): 074685813 (2) Unspecified hydronephrosis Current Visit: Yes Status: Acute Code(s): N13.30 - UNSPECIFIED HYDRONEPHROSIS SNOMED Code(s): 70760981 Plan: - Continue daptomycin and meropenem, pending urine culture result. - Renal function is improved. I will discuss resumption of stomal catheterization with the patient once she is more alert.
--- NOTE | 2024-02-16 10:50 | P.PN ---
Subjective Progress Note Date: 02/16/24 Patient is a 58-year-old white female with multiple medical comorbidities including spina bifida, paraplegia, hydrocephalus, Chiari malformation, VA shunt, Gates's palsy, urostomy, recurrent urinary tract infections, chronic kidney disease, dysphagia, diabetes mellitus, paraplegia and is bedbound. She does have a chronic sacral decubitus pressure ulcer as well. She resides at [facility]. At the outside facility, she was noted to be lethargic and confused. Blood pressure was noted to be significantly hypotensive with a systolic pressure of 70 mmHg. She was sent into the emergency department for evaluation. UA concerning for possible urinary tract infection. She was started on empiric antibiotics including meropenem by infectious disease specialist, she has history of MDRO infections. She is currently in room 255, she remains lethargic and confused. Able to follow simple commands and answer some orientation questions. She is overall a poor historian. No specific complaints from the patient. She is on room air. SpO2 reading 96%. CXR showing mild pulmonary vascular congestion. No focal infiltrates noted. Normal sinus rhythm on bedside monitor. As far as the patient's hypotension, she is fluid resuscitated with a total of 2 L normal saline bolus. She was then started on vasopressors, currently requiring norepinephrine which is infusing at 0.07 mcg/kg/min. Normal saline continues to infuse at 130 mL/h. She has urostomy, and is making adequate urine output. She has a rather large sacral decubitus pressure ulcer, mostly granulation tissue. The appropriate cultures are pending. Most recent CBC: WBC count 12, hemoglobin 8, hematocrit 27.9, platelets 523. Her hemoglobin was 6.8 g/dL on arrival, and she is status post 1 unit PRBCs. No overt signs of acute blood loss. She is known to have chronic anemia. CMP: Sodium 139, potassium 5.6, chloride 117, serum bicarb 10, BUN 108, creatinine 2.03, glucose 107. Lactic 0.7. AST 32, ALT 25, ALP 456. Total b ilirubin 0.3. Troponin less than 0.012. Urinalysis positive for leukocyte esterase and few bacteria. Patient is a DO NOT RESUSCITATE/DO NOT INTUBATE status. This was reportedly verified by the ER physician with family prior to admission. Overall prognosis is guarded secondary to above-mentioned comorbidities. The patient is seen today February 16, 2024 in follow-up in the intensive care unit. She is currently sitting up in bed. Awake and alert. Confused at times. Denies any worsening shortness of breath, cough or congestion. She is maintaining good O2 saturations in the 90s on room air. She has D5W with 3 A of bicarb at 130 mL/h. Her blood cultures are positive for gram-positive cocci in chains and clusters. She is currently on daptomycin and meropenem. Potassium 3.3. Bicarb 23. BUN 78. Creatinine 1.15. Glucose 174. She is on heparin for DVT prophylaxis. Objective - Vital Signs Vital signs: Vital Signs Temp 98.6 F 02/16/24 08:00 Pulse 98 02/16/24 09:00 Resp 21 02/16/24 09:00 BP 133/65 02/16/24 09:00 Pulse Ox 95 02/16/24 09:00 FiO2 Intake & Output 02/15/24 02/16/24 02/16/24 18:59 06:59 18:59 Intake Total 2533.883 1735 405 Output Total 1100 935 380 Balance 1433.883 800 25 Weight 74.8 kg 75 kg Intake: IV 120 110 280 .9 kvo 120 110 10 Dextrose 5% in Water 1, 250 000 ml @ 125 mls/hr IV . Q9H12M ALLIE with Sodium Bicarb (1 Meq/ml) 150 ml Rx#:[id number] Invasive Line 2 20 Intake, IV Titration 7289.137 9742 125 Amount DAPTOmycin 450 mg In 100 Sodium Chloride 0.9% 50 ml @ 100 mls/hr IVPB Q24H ALLIE Rx#:[id number] Dextrose 5% in Water 1, 1375 1375 125 000 ml @ 125 mls/hr IV . Q9H12M ALLIE with Sodium Bicarb (1 Meq/ml) 150 ml Rx#:[id number] Meropenem 1 gm In Sodium 100 Chloride 0.9% 100 ml @ 33 .3 mls/hr IVPB Q12H ALLIE Rx#:[id number] Meropenem 1 gm In Sodium 100 Chloride 0.9% 100 ml @ 33 .3 mls/hr IVPB Q12HR ALLIE Rx#:[id number] Norepinephrine 32 mg In 38.883 Sodium Chloride 0.9% 218 ml @ 0.03 MCG/KG/MIN 1.18 mls/hr IV .Q24H ONE Rx#: [id number] Oral 700 250 0 Output: Urine 1100 935 380 Other: # Bowel Movements 1 - Exam GENERAL EXAM: Awake 58-year-old white female sitting up in bed. Room air, in no acute distress. Generalized edema and anasarca HEAD: Normocephalic and atraumatic EYES: Normal reaction of pupils, equal size. NOSE: Clear with pink turbinates. THROAT: No erythema or exudates. NECK: No masses, no JVD. CHEST: No chest wall deformity. LUNGS: Equal air entry with no crackles, wheeze, rhonchi or dullness. No conversational dyspnea or accessory muscle use.. CVS: S1 and S2 normal with no audible murmur, regular rhythm. No extra heart sounds ABDOMEN: No hepatosplenomegaly, active bowel sounds. Remote appearing abdominal incision. Urostomy bag noted draining yellow cloudy/sediment urine. SPINE: No scoliosis or deformity SKIN: Large sacral decubitus pressure ulcer stage IV, progressing down to the fascial/bone with large amounts of pink granulation tissue. CENTRAL NERVOUS SYSTEM: Lethargic, follows simple commands, unable to move bilateral lower extremities. EXTREMITIES: Anasarca and bilateral lower extremity edema. No clubbing, or cyanosis. Peripheral pulses are intact. - Labs CBC & Chem 7: 02/16/24 05:43 02/16/24 05:43 Labs: Abnormal Lab Results - Last 24 Hours (Table) 02/15/24 02/15/24 02/15/24 Range/Units 05:28 11:41 16:19 RBC (3.80-5.40) m/uL Hgb (11.4-16.0) gm/dL Hct (34.0-46.0) % MCH (25.0-35.0) pg MCHC (31.0-37.0) g/dL RDW (11.5-15.5) % Potassium (3.5-5.1) mmol/L Chloride (98-107) mmol/L BUN (7-17) mg/dL Creatinine (0.52-1.04) mg/dL Glucose (74-99) mg/dL POC Glucose (mg/dL) 177 H 192 H (70-110) mg/dL Hemoglobin A1c (<=6.0) % Calcium (8.4-10.2) mg/dL Procalcitonin 0.51 H (0.02-0.50) ng/mL 02/15/24 02/16/24 02/16/24 Range/Units 23:13 05:43 05:43 RBC 2.96 L (3.80-5.40) m/uL Hgb 7.1 L (11.4-16.0) gm/dL Hct 24.0 L (34.0-46.0) % MCH 24.1 L (25.0-35.0) pg MCHC 29.7 L (31.0-37.0) g/dL RDW 19.9 H (11.5-15.5) % Potassium (3.5-5.1) mmol/L Chloride (98-107) mmol/L BUN (7-17) mg/dL Creatinine (0.52-1.04) mg/dL Glucose (74-99) mg/dL POC Glucose (mg/dL) 213 H (70-110) mg/dL Hemoglobin A1c 8.2 H (<=6.0) % Calcium (8.4-10.2) mg/dL Procalcitonin (0.02-0.50) ng/mL 02/16/24 Range/Units 05:43 RBC (3.80-5.40) m/uL Hgb (11.4-16.0) gm/dL Hct (34.0-46.0) % MCH (25.0-35.0) pg MCHC (31.0-37.0) g/dL RDW (11.5-15.5) % Potassium 3.3 L (3.5-5.1) mmol/L Chloride 112 H (98-107) mmol/L BUN 78 H (7-17) mg/dL Creatinine 1.15 H (0.52-1.04) mg/dL Glucose 174 H (74-99) mg/dL POC Glucose (mg/dL) (70-110) mg/dL Hemoglobin A1c (<=6.0) % Calcium 6.7 L (8.4-10.2) mg/dL Procalcitonin (0.02-0.50) ng/mL Microbiology - Last 24 Hours (Table) 02/14/24 13:58 Urine Culture - Final Urine,Catheterized 02/14/24 14:32 Blood Culture Gram Stain - Preliminary Blood Blood Culture - Preliminary Molecular ID 02/14/24 18:16 Gram Stain - Preliminary Other - Other Assessment and Plan Assessment: Hypotension and shock, suspect septic shock, possible urosepsis. Recovered and off norepinephrine. Anemia of chronic disease, hemoglobin noted to be 6.8 g/dL on admission status post 1 unit PRBC up to 7.1 g/dL Chronic sacral decubitus pressure ulcer Acute kidney injury, likely secondary to hypotension and ATN Severe non-anion gap metabolic acidosis Hyperkalemia secondary to above Diabetes mellitus, insulin-dependent History of spina bifida History of Chiari malformation History of hydrocephalus and VA shunt History of urostomy and recurrent urinary tract infections History of asthma, stable Obesity, with a BMI of 31.8 kg/m Plan: The patient was seen and evaluated Labs and medications reviewed Oertli stable and off pressors On room air Continue daptomycin and meropenem Heparin for DVT prophylaxis Could transfer out of the ICU to the regular medical floor today I have personally seen and examined the patient, performed the documentation and the assessment and plan as written. Number of minutes spent on the visit: 10.
[2024-02-16 11:16] LABS: Glucose,Whole Blood 129 mg/dL (70-110)
[2024-02-16] MEDS: POTASSIUM CHLORIDE ER 10 MEQ TAB.ER.PRT PO SCH (12:42)
[2024-02-16] MEDS: ONDANSETRON 4 MG/2 ML VIAL IVP PRN (13:55)
--- NOTE | 2024-02-16 16:01 | P.PN ---
Subjective Progress Note Date: 02/16/24 This is a pleasant 58 year old female with medical history of spina bifida, asthma, diabetes mellitus , GERD, sleep apnea, chiari malformation. [facility] concern for altered mentation and low blood pressure down into the 70s systolic. Patient was admitted to the ICU with consults placed to pulmonary system software developer and ID. Patient is bedbound at baseline; does have known sacral pressure injury as well as pressure injury to the left thigh. Patient was given fluid bolus and started on levophed pressor support. Patient has been started on IV meropenem with concern for UTI and does have history of ESBL. Chest x-ray reveals mild pulmonary vascular congestion. EKG reveals sinus tachycardia heart rate of [address] or T wave changes. Blood work reveals a white blood cell count of 8.1, hemoglobin 6.8, platelet count of 488, potassium of 5.6, BUN of 108, creatinine of 2.03, lactic acid of 0.7, troponin level is negative, urinalysis is significantly abnormal with a turbid appearance, large leukocyte Estrace, greater than 182 WBCs and few bacteria. Patient is not complaining of any chest pain or shortness of breath she is currently awake and alert and less confused her family is at the bedside. Her main complaint today is the pain she is having from the sacral wound. Patient is maintained on MS contin outpatient will need to be held secondary to the renal dysfunction. Blood cultures today have come back showing gram-positive cocci in chains as well as gram-positive cocci in clusters, Staphylococcus species, Streptococcus species, strep collected group B, MRSA are showing as positive. Preliminary wound culture of the sacral ulcer reveal few gram positive bacilli, few gram positive cocci, and few gram negative bacilli. Patient is not on combination of IV daptomycin, IV meropenem. 02/16/2024 Is evaluated in follow-up on the medical floor. She is more awake alert. Patient is off the pressor support and her blood pressure is maintaining in 120s to 130s systolic. Her creatinine has improved significantly and down to 1.15. White blood cell count is 4.0, hemoglobin 7.1, potassium 3.3 patient continues on a combination of IV daptomycin and IV meropenem. Her urine culture is negative, found to have MRSA bacteremia and this is likely from the sacral decubitus wound. Patient was seen in consultation by wound care and recommended for a wound VAC to the sacral decubitus ulcer. REVIEW OF SYSTEMS: CONSTITUTIONAL: No fever, no malaise. Reports fatigue. HEENT: No recent visual problems or hearing problems. Denied any sore throat. CARDIOVASCULAR: No chest pain, orthopnea, PND, no palpitations, no syncope. PULMONARY: No shortness of breath, no cough, no hemoptysis. GASTROINTESTINAL: No diarrhea, no nausea, no vomiting, no abdominal pain. NEUROLOGICAL: No headaches, no weakness, no numbness. PHYSICAL EXAMINATION: GENERAL: The patient is alert and oriented x2-3, not in any acute distress. Well developed, well nourished. HEENT: Pupils are round and equally reacting to light. EOMI. No scleral icterus. No conjunctival pallor. Normocephalic, atraumatic. No pharyngeal erythema. No thyromegaly. CARDIOVASCULAR: S1 and S2 present. No murmurs, rubs, or gallops. PULMONARY: Chest is clear to auscultation, no wheezing or crackles. ABDOMEN: Soft, nontender, nondistended, normoactive bowel sounds. No palpable organomegaly. MUSCULOSKELETAL: No joint swelling or deformity. EXTREMITIES: No cyanosis, clubbing, Mild pedal edema. NEUROLOGICAL: Gross neurological examination did not reveal any focal deficits. Diffuse weakness. SKIN: Sacral pressure injury. Assessment Acute urinary tract infection; likely catheter associated; with sepsis and septic shock, POA MRSA/Strep Bacteremia Sacral pressure injury, left thigh pressure injury POA stage III to both Acute kidney injury acute tubular necrosis from infection. Altered mental status acute metabolic and toxic encephalopathy Neurogenic bladder and urostomy stoma History of Spina Bifidi and chiari malformation patient is bedbound at baseline Diabetes Mellitus type 2 Gastroesophageal reflux disease Hx of asthma with no acute exacerbation Hx of hydrocephalus and VA shunt Chronic kidney disease Anemia of chronic disease GI prophylaxis DVT prophylaxis Do Not Resuscitate/Do Not Intubate Plan Continue IV antibiotics with IV meropenem/IV daptomycin while waiting for final cultures Blood culture has been repeated today. ID following closely. Local wound care to the pressure injuries with aquacel VAC to be applied to the sacral wound Continue Bicarb Gtt. Levophed has been discontinued blood pressure significantly improved Need to hold the MS Contin due to renal dysfunction Urology consultation pending Wound care consult pending. Repeat labs in the AM. The impression and plan of care has been dictated by Viviana Sellers Nurse Practitioner as directed. Dr. Shimon MD I have performed a history and physical examination and medical decision making of this patient, discussed the same with the dictator, and agree with the dictators assessment and plan as written, documented as a scribe. Based on total visit time, I have performed more than 50% of this visit. Objective - Vital Signs Vital signs: Vital Signs Temp 98.6 F 02/16/24 08:00 Pulse 98 02/16/24 09:00 Resp 21 02/16/24 09:00 BP 133/65 02/16/24 09:00 Pulse Ox 95 02/16/24 09:00 FiO2 Intake & Output 02/15/24 02/16/24 02/16/24 18:59 06:59 18:59 Intake Total 2533.883 1735 405 Output Total 1100 935 380 Balance 1433.883 800 25 Weight 74.8 kg 75 kg Intake: IV 120 110 280 .9 kvo 120 110 10 Dextrose 5% in Water 1, 250 000 ml @ 125 mls/hr IV . Q9H12M ALLIE with Sodium Bicarb (1 Meq/ml) 150 ml Rx#:[id number] Invasive Line 2 20 Intake, IV Titration 5746.233 0521 125 Amount DAPTOmycin 450 mg In 100 Sodium Chloride 0.9% 50 ml @ 100 mls/hr IVPB Q24H ALLIE Rx#:[id number] Dextrose 5% in Water 1, 1375 1375 125 000 ml @ 125 mls/hr IV . Q9H12M ALLIE with Sodium Bicarb (1 Meq/ml) 150 ml Rx#:[id number] Meropenem 1 gm In Sodium 100 Chloride 0.9% 100 ml @ 33 .3 mls/hr IVPB Q12H ALLIE Rx#:[id number] Meropenem 1 gm In Sodium 100 Chloride 0.9% 100 ml @ 33 .3 mls/hr IVPB Q12HR ALLIE Rx#:[id number] Norepinephrine 32 mg In 38.883 Sodium Chloride 0.9% 218 ml @ 0.03 MCG/KG/MIN 1.18 mls/hr IV .Q24H ONE Rx#: [id number] Oral 700 250 0 Output: Urine 1100 935 380 Other: # Bowel Movements 1 - Labs CBC & Chem 7: 02/16/24 05:43 02/16/24 05:43 Labs: Abnormal Lab Results - Last 24 Hours (Table) 02/15/24 02/15/24 02/15/24 Range/Units 05:28 11:41 16:19 RBC (3.80-5.40) m/uL Hgb (11.4-16.0) gm/dL Hct (34.0-46.0) % MCH (25.0-35.0) pg MCHC (31.0-37.0) g/dL RDW (11.5-15.5) % Potassium (3.5-5.1) mmol/L Chloride (98-107) mmol/L BUN (7-17) mg/dL Creatinine (0.52-1.04) mg/dL Glucose (74-99) mg/dL POC Glucose (mg/dL) 177 H 192 H (70-110) mg/dL Hemoglobin A1c (<=6.0) % Calcium (8.4-10.2) mg/dL Procalcitonin 0.51 H (0.02-0.50) ng/mL 02/15/24 02/16/24 02/16/24 Range/Units 23:13 05:43 05:43 RBC 2.96 L (3.80-5.40) m/uL Hgb 7.1 L (11.4-16.0) gm/dL Hct 24.0 L (34.0-46.0) % MCH 24.1 L (25.0-35.0) pg MCHC 29.7 L (31.0-37.0) g/dL RDW 19.9 H (11.5-15.5) % Potassium (3.5-5.1) mmol/L Chloride (98-107) mmol/L BUN (7-17) mg/dL Creatinine (0.52-1.04) mg/dL Glucose (74-99) mg/dL POC Glucose (mg/dL) 213 H (70-110) mg/dL Hemoglobin A1c 8.2 H (<=6.0) % Calcium (8.4-10.2) mg/dL Procalcitonin (0.02-0.50) ng/mL 02/16/24 Range/Units 05:43 RBC (3.80-5.40) m/uL Hgb (11.4-16.0) gm/dL Hct (34.0-46.0) % MCH (25.0-35.0) pg MCHC (31.0-37.0) g/dL RDW (11.5-15.5) % Potassium 3.3 L (3.5-5.1) mmol/L Chloride 112 H (98-107) mmol/L BUN 78 H (7-17) mg/dL Creatinine 1.15 H (0.52-1.04) mg/dL Glucose 174 H (74-99) mg/dL POC Glucose (mg/dL) (70-110) mg/dL Hemoglobin A1c (<=6.0) % Calcium 6.7 L (8.4-10.2) mg/dL Procalcitonin (0.02-0.50) ng/mL Microbiology - Last 24 Hours (Table) 02/14/24 13:58 Urine Culture - Final Urine,Catheterized 02/14/24 14:32 Blood Culture Gram Stain - Preliminary Blood Blood Culture - Preliminary Molecular ID 02/14/24 18:16 Gram Stain - Preliminary Other - Other Assessment and Plan Time with Patient: Less than 30
[2024-02-16 17:23] LABS: Glucose,Whole Blood 217 mg/dL (70-110)
[2024-02-16] MEDS ORDERED: ASCORBIC ACID 500 MG TAB ONE (21:00)
[2024-02-16] MEDS ORDERED: FOLIC ACID 1 MG TAB ONE (21:00)
[2024-02-16] MEDS ORDERED: MULTIVITAMINS, THERA 1 EACH TAB ONE (21:00)
[2024-02-16 21:19] LABS: Glucose,Whole Blood 110 mg/dL (70-110)
[2024-02-17] MEDS ORDERED: HEPARIN SODIUM,PORCINE 5,000 UNIT/ML 1 ML VIAL ONE
[2024-02-17] MEDS ORDERED: HYDROcodone/APAP 5-325MG 1 EACH TAB ONE (00:42)
[2024-02-17 05:47] LABS: Glucose,Whole Blood 130 mg/dL (70-110)
[2024-02-17 11:42] LABS: Glucose,Whole Blood 173 mg/dL (70-110)
[2024-02-17] MEDS: DEXTROSE 5%-0.45% NACL 1,000 ML IV SCH (11:50)
--- NOTE | 2024-02-17 12:25 | P.PN ---
Subjective Progress Note Date: 02/17/24 Patient is a 58-year-old white female with multiple medical comorbidities including spina bifida, paraplegia, hydrocephalus, Chiari malformation, VA shunt, Gates's palsy, urostomy, recurrent urinary tract infections, chronic kidney disease, dysphagia, diabetes mellitus, paraplegia and is bedbound. She does have a chronic sacral decubitus pressure ulcer as well. She resides at [facility]. At the outside facility, she was noted to be lethargic and confused. Blood pressure was noted to be significantly hypotensive with a systolic pressure of 70 mmHg. She was sent into the emergency department for evaluation. UA concerning for possible urinary tract infection. She was started on empiric antibiotics including meropenem by infectious disease specialist, she has history of MDRO infections. She is currently in room 255, she remains lethargic and confused. Able to follow simple commands and answer some orientation questions. She is overall a poor historian. No specific complaints from the patient. She is on room air. SpO2 reading 96%. CXR showing mild pulmonary vascular congestion. No focal infiltrates noted. Normal sinus rhythm on bedside monitor. As far as the patient's hypotension, she is fluid resuscitated with a total of 2 L normal saline bolus. She was then started on vasopressors, currently requiring norepinephrine which is infusing at 0.07 mcg/kg/min. Normal saline continues to infuse at 130 mL/h. She has urostomy, and is making adequate urine output. She has a rather large sacral decubitus pressure ulcer, mostly granulation tissue. The appropriate cultures are pending. Most recent CBC: WBC count 12, hemoglobin 8, hematocrit 27.9, platelets 523. Her hemoglobin was 6.8 g/dL on arrival, and she is status post 1 unit PRBCs. No overt signs of acute blood loss. She is known to have chronic anemia. CMP: Sodium 139, potassium 5.6, chloride 117, serum bicarb 10, BUN 108, creatinine 2.03, glucose 107. Lactic 0.7. AST 32, ALT 25, ALP 456. Total b ilirubin 0.3. Troponin less than 0.012. Urinalysis positive for leukocyte esterase and few bacteria. Patient is a DO NOT RESUSCITATE/DO NOT INTUBATE status. This was reportedly verified by the ER physician with family prior to admission. Overall prognosis is guarded secondary to above-mentioned comorbidities. The patient is seen today February 16, 2024 in follow-up in the intensive care unit. She is currently sitting up in bed. Awake and alert. Confused at times. Denies any worsening shortness of breath, cough or congestion. She is maintaining good O2 saturations in the 90s on room air. She has D5W with 3 A of bicarb at 130 mL/h. Her blood cultures are positive for gram-positive cocci in chains and clusters. She is currently on daptomycin and meropenem. Potassium 3.3. Bicarb 23. BUN 78. Creatinine 1.15. Glucose 174. She is on heparin for DVT prophylaxis. The patient is seen today February 17, 2024 in follow-up on the regular medical floor. She is currently sitting up in bed. Awake and alert in no acute distress. She is maintaining O2 saturations in the 90s on room air. She has D5W with 3 A of bicarb at 125 mL/h. Cultures positive for gram-positive cocci in chains and clusters. Urine culture revealed no growth. Glucose 173. Today's labs are pending. She is continued on daptomycin and meropenem. Objective - Vital Signs Vital signs: Vital Signs Temp 97.7 F 02/17/24 07:06 Pulse 80 02/17/24 09:00 Resp 16 02/17/24 09:00 BP 99/63 02/17/24 08:07 Pulse Ox 97 02/17/24 07:06 FiO2 Intake & Output 02/16/24 02/17/24 02/17/24 18:59 06:59 18:59 Intake Total 2320 Output Total 1690 475 Balance 630 -475 Weight 75 kg Intake: IV 2175 .9 kvo 10 Dextrose 5% in Water 1, 2125 000 ml @ 125 mls/hr IV . Q9H12M ALLIE with Sodium Bicarb (1 Meq/ml) 150 ml Rx#:[id number] Invasive Line 2 40 Intake, IV Titration 125 Amount Dextrose 5% in Water 1, 125 000 ml @ 125 mls/hr IV . Q9H12M ALLIE with Sodium Bicarb (1 Meq/ml) 150 ml Rx#:[id number] Oral 20 Output: Urine 1680 475 Emesis 10 Other: # Bowel Movements 1 - Exam GENERAL EXAM: Awake 58-year-old female, resting in bed. On room air, in no acute distress. Generalized edema and anasarca HEAD: Normocephalic and atraumatic EYES: Normal reaction of pupils, equal size. NOSE: Clear with pink turbinates. THROAT: No erythema or exudates. NECK: No masses, no JVD. CHEST: No chest wall deformity. LUNGS: Equal air entry with no crackles, wheeze, rhonchi or dullness. No conversational dyspnea or accessory muscle use.. CVS: S1 and S2 normal with no audible murmur, regular rhythm. No extra heart sounds ABDOMEN: No hepatosplenomegaly, active bowel sounds. Remote appearing abdominal incision. Urostomy bag noted draining yellow cloudy/sediment urine. SPINE: No scoliosis or deformity SKIN: Large sacral decubitus pressure ulcer stage IV, progressing down to the fascial/bone with large amounts of pink granulation tissue. CENTRAL NERVOUS SYSTEM: Lethargic, follows simple commands, unable to move bilateral lower extremities. EXTREMITIES: Anasarca and bilateral lower extremity edema. No clubbing, or cyanosis. Peripheral pulses are intact. - Labs CBC & Chem 7: 02/16/24 05:43 02/16/24 05:43 Labs: Abnormal Lab Results - Last 24 Hours (Table) 02/16/24 02/17/24 02/17/24 Range/Units 17:22 05:41 11:41 POC Glucose (mg/dL) 217 H 130 H 173 H (70-110) mg/dL Microbiology - Last 24 Hours (Table) 02/15/24 14:25 Blood Culture - Preliminary Blood Assessment and Plan Assessment: Hypotension and septic shock, can Martin to bacteremia with gram-positive cocci in clusters and chains. Recovered and off norepinephrine. Anemia of chronic disease, hemoglobin noted to be 6.8 g/dL on admission status post 1 unit PRBC up to 7.1 g/dL Chronic sacral decubitus pressure ulcer Acute kidney injury, likely secondary to hypotension and ATN Severe non-anion gap metabolic acidosis Hyperkalemia secondary to above Diabetes mellitus, insulin-dependent History of spina bifida History of Chiari malformation History of hydrocephalus and VA shunt History of urostomy and recurrent urinary tract infections History of asthma, stable Obesity, with a BMI of 31.8 kg/m Plan: The patient was seen and evaluated Labs and medications reviewed Stable and on room air Continue daptomycin and meropenem Heparin for DVT prophylaxis We will continue to follow I have personally seen and examined the patient, performed the documentation and the assessment and plan as written. Number of minutes spent on the visit: 10.
[2024-02-17 13:02] LABS: Anisocytosis Moderate; Basophils % (A) 1 %; Eosinophils # (A) 0.1 k/uL (0-0.7); Eosinophils % (A) 1 %; HCT 24.9 % (34.0-46.0); HGB 7.5 gm/dL (11.4-16.0); Hypochromasia Marked; Lymphocytes # (A) 1.1 k/uL (1.0-4.8); Lymphocytes % (A) 17 %; MCH 24.8 pg (25.0-35.0); MCHC 30.2 g/dL (31.0-37.0); MCV 82.2 fL (80.0-100.0); Mean Platelet Volume 7.6; Microcytosis Slight; Monocytes # (A) 0.4 k/uL (0-1.0); Monocytes % (A) 7 %; Neutrophils # (A) 4.3 k/uL (1.3-7.7); Neutrophils % (A) 71 %; Platelet Count 320 k/uL (150-450); Poikilocytosis Slight; RBC 3.03 m/uL (3.80-5.40); RDW 20.2 % (11.5-15.5); WBC 6.1 k/uL (3.8-10.6)
[2024-02-17 13:29] LABS: African American GFR (CKD) 62 (>60 ml/min/1.73 sqM); Anion Gap 8 mmol/L; Blood Urea Nitrogen 78 mg/dL (7-17); Carbon Dioxide 24 mmol/L (22-30); Chloride 101 mmol/L (98-107); Glucose 149 mg/dL (74-99); Non-African American GFR(CKD) 54 (>60 ml/min/1.73 sqM); Sodium 133 mmol/L (137-145)
[2024-02-17 13:51] LABS: Calcium 5.5 mg/dL (8.4-10.2)
[2024-02-17 14:23] LABS: Crenated RBC Present; RBC Fragments Present
--- NOTE | 2024-02-17 14:59 | P.PN ---
Subjective Progress Note Date: 02/17/24 This is a pleasant 58 year old female with medical history of spina bifida, asthma, diabetes mellitus , GERD, sleep apnea, chiari malformation. [facility] with concern for altered mentation and low blood pressure down into the 70s systolic. Patient was admitted to the ICU with consults placed to pulmonary bonding machine tender and ID. Patient is bedbound at baseline; does have known sacral pressure injury as well as pressure injury to the left thigh. Patient was given fluid bolus and started on levophed pressor support. Patient has been started on IV meropenem with concern for UTI and does have history of ESBL. Chest x-ray reveals mild pulmonary vascular congestion. EKG reveals sinus tachycardia heart rate of [address] or T wave changes. Blood work reveals a white blood cell count of 8.1, hemoglobin 6.8, platelet count of 488, potassium of 5.6, BUN of 108, creatinine of 2.03, lactic acid of 0.7, troponin level is negative, urinalysis is significantly abnormal with a turbid appearance, large leukocyte Estrace, greater than 182 WBCs and few bacteria. Patient is not complaining of any chest pain or shortness of breath she is currently awake and alert and less confused her family is at the bedside. Her main complaint today is the pain she is having from the sacral wound. Patient is maintained on MS contin outpatient will need to be held secondary to the renal dysfunction. Blood cultures today have come back showing gram-positive cocci in chains as well as gram-positive cocci in clusters, Staphylococcus species, Streptococcus species, strep collected group B, MRSA are showing as positive. Preliminary wound culture of the sacral ulcer reveal few gram positive bacilli, few gram positive cocci, and few gram negative bacilli. Patient is not on combination of IV daptomycin, IV meropenem. 02/16/2024 Is evaluated in follow-up on the medical floor. She is more awake alert. Patient is off the pressor support and her blood pressure is maintaining in 120s to 130s systolic. Her creatinine has improved significantly and down to 1.15. White blood cell count is 4.0, hemoglobin 7.1, potassium 3.3 patient continues on a combination of IV daptomycin and IV meropenem. Her urine culture is negative, found to have MRSA bacteremia and this is likely from the sacral decubitus wound. Patient was seen in consultation by wound care and recommended for a wound VAC to the sacral decubitus ulcer. 02/17/2024 Evaluated in follow-up in the medical floor. She is concerned with not being able to straight cath her urostomy and worried about the backflow. There is significant sediment in the urine is a cloudy color. Her urine culture was found to be negative. We are waiting for repeat blood cultures so far pulmonary is negative she remains on IV daptomycin and IV meropenem. Wound VAC in place to the sacral ulcer. Once patient is medically ready she will discharge back to [facility]. Work today reveals a white blood cell count of 6.1, hemoglobin 7.5, sodium 133, BUN 78, creatinine 1.14, calcium 5.5. REVIEW OF SYSTEMS: CONSTITUTIONAL: No fever, no malaise. Reports fatigue. HEENT: No recent visual problems or hearing problems. Denied any sore throat. CARDIOVASCULAR: No chest pain, orthopnea, PND, no palpitations, no syncope. PULMONARY: No shortness of breath, no cough, no hemoptysis. GASTROINTESTINAL: No diarrhea, no nausea, no vomiting, no abdominal pain. NEUROLOGICAL: No headaches, no weakness, no numbness. PHYSICAL EXAMINATION: GENERAL: The patient is alert and oriented x2-3, not in any acute distress. Well developed, well nourished. HEENT: Pupils are round and equally reacting to light. EOMI. No scleral icterus. No conjunctival pallor. Normocephalic, atraumatic. No pharyngeal erythema. No thyromegaly. CARDIOVASCULAR: S1 and S2 present. No murmurs, rubs, or gallops. PULMONARY: Chest is clear to auscultation, no wheezing or crackles. ABDOMEN: Soft, nontender, nondistended, normoactive bowel sounds. No palpable organomegaly. MUSCULOSKELETAL: No joint swelling or deformity. EXTREMITIES: No cyanosis, clubbing, Mild pedal edema. NEUROLOGICAL: Gross neurological examination did not reveal any focal deficits. Diffuse weakness. SKIN: Sacral pressure injury. Assessment Acute urinary tract infection; likely catheter associated; with sepsis and septic shock, POA MRSA/Strep Bacteremia Sacral pressure injury, left thigh pressure injury POA stage III to both Acute kidney injury acute tubular necrosis from infection. Altered mental status acute metabolic and toxic encephalopathy Neurogenic bladder and urostomy stoma History of Spina Bifidi and chiari malformation patient is bedbound at baseline Diabetes Mellitus type 2 Gastroesophageal reflux disease Hx of asthma with no acute exacerbation Hx of hydrocephalus and VA shunt Chronic kidney disease Anemia of chronic disease GI prophylaxis DVT prophylaxis Do Not Resuscitate/Do Not Intubate Plan Continue IV antibiotics with IV meropenem/IV daptomycin while waiting for final cultures Blood culture has been repeated today. ID following closely. Local wound care to the pressure injuries with aquacel VAC to be applied to the sacral wound Fluids have been changed to D5 half-normal saline by pulmonary continues at 75 mL/h Levophed has been discontinued blood pressure significantly improved Need to hold the MS Contin due to renal dysfunction Nursing to discuss with urology orders to strait cath her stoma. Urology consultation pending Wound care consult pending. Repeat labs in the AM. The impression and plan of care has been dictated by Viviana Sellers, Nurse Practitioner as directed. Dr. Shimon MD I have performed a history and physical examination and medical decision making of this patient, discussed the same with the dictator, and agree with the dictators assessment and plan as written, documented as a scribe. Based on total visit time, I have performed more than 50% of this visit. Objective - Vital Signs Vital signs: Vital Signs Temp 97.7 F 02/17/24 07:06 Pulse 80 02/17/24 09:00 Resp 16 02/17/24 09:00 BP 99/63 02/17/24 08:07 Pulse Ox 97 02/17/24 07:06 FiO2 Intake & Output 02/16/24 02/17/24 02/17/24 18:59 06:59 18:59 Intake Total 2320 Output Total 1690 475 Balance 630 -475 Weight 75 kg Intake: IV 2175 .9 kvo 10 Dextrose 5% in Water 1, 2125 000 ml @ 125 mls/hr IV . Q9H12M ALLIE with Sodium Bicarb (1 Meq/ml) 150 ml Rx#:[id number] Invasive Line 2 40 Intake, IV Titration 125 Amount Dextrose 5% in Water 1, 125 000 ml @ 125 mls/hr IV . Q9H12M ALLIE with Sodium Bicarb (1 Meq/ml) 150 ml Rx#:[id number] Oral 20 Output: Urine 1680 475 Emesis 10 Other: # Bowel Movements 1 - Labs CBC & Chem 7: 02/17/24 11:35 02/17/24 11:35 Labs: Abnormal Lab Results - Last 24 Hours (Table) 02/16/24 02/17/24 02/17/24 Range/Units 17:22 05:41 11:35 RBC 3.03 L (3.80-5.40) m/uL Hgb 7.5 L (11.4-16.0) gm/dL Hct 24.9 L (34.0-46.0) % MCH 24.8 L (25.0-35.0) pg MCHC 30.2 L (31.0-37.0) g/dL RDW 20.2 H (11.5-15.5) % Sodium (137-145) mmol/L BUN (7-17) mg/dL Creatinine (0.52-1.04) mg/dL Glucose (74-99) mg/dL POC Glucose (mg/dL) 217 H 130 H (70-110) mg/dL Calcium (8.4-10.2) mg/dL 02/17/24 02/17/24 Range/Units 11:35 11:41 RBC (3.80-5.40) m/uL Hgb (11.4-16.0) gm/dL Hct (34.0-46.0) % MCH (25.0-35.0) pg MCHC (31.0-37.0) g/dL RDW (11.5-15.5) % Sodium 133 L (137-145) mmol/L BUN 78 H (7-17) mg/dL Creatinine 1.14 H (0.52-1.04) mg/dL Glucose 149 H (74-99) mg/dL POC Glucose (mg/dL) 173 H (70-110) mg/dL Calcium 5.5 L* (8.4-10.2) mg/dL Microbiology - Last 24 Hours (Table) 02/15/24 14:25 Blood Culture - Preliminary Blood Assessment and Plan Time with Patient: Less than 30
[2024-02-17] MEDS: CALCIUM GLUCONATE IN NACL 1 GM in SALINE 1 100ML.BAG IVPB ONE (15:29)
--- NOTE | 2024-02-17 15:30 | P.PN ---
Subjective Progress Note Date: 02/16/24 Principal diagnosis: Reason for follow-up sepsis UTI and pressure ulcer Patient is a 58-year-old female with a past medical history significant for diabetes mellitus reflux asthma spina bifida, this patient who is a bedbound and did have a sacral pressure ulcer with the previous episode of osteomyelitis patient has been brought into the hospital from the local long term after the patient was found to be lethargic mental status changes noticed to be septic require admission to the ICU blood cultures came back positive with MRSA. On today's visit that is 02/16/2024, the patient did spike a fever of 102.9 F at 1 AM the patient is afebrile since then, patient is currently breathing comfortably on room air no chest pain shortness with or cough no nausea vomiting no abdominal pain or diarrhea. The patient white count is 4.0 creatinine is 1.15 Objective - Vital Signs Vital signs: Vital Signs Temp 98.6 F 02/16/24 08:00 Pulse 98 02/16/24 09:00 Resp 21 02/16/24 09:00 BP 133/65 02/16/24 09:00 Pulse Ox 95 02/16/24 09:00 FiO2 Intake & Output 02/15/24 02/16/24 02/16/24 18:59 06:59 18:59 Intake Total 2533.883 1735 405 Output Total 1100 935 380 Balance 1433.883 800 25 Weight 74.8 kg 75 kg Intake: IV 120 110 280 .9 kvo 120 110 10 Dextrose 5% in Water 1, 250 000 ml @ 125 mls/hr IV . Q9H12M ALLIE with Sodium Bicarb (1 Meq/ml) 150 ml Rx#:[id number] Invasive Line 2 20 Intake, IV Titration 7504.235 7911 125 Amount DAPTOmycin 450 mg In 100 Sodium Chloride 0.9% 50 ml @ 100 mls/hr IVPB Q24H ALLIE Rx#:[id number] Dextrose 5% in Water 1, 1375 1375 125 000 ml @ 125 mls/hr IV . Q9H12M ALLIE with Sodium Bicarb (1 Meq/ml) 150 ml Rx#:[id number] Meropenem 1 gm In Sodium 100 Chloride 0.9% 100 ml @ 33 .3 mls/hr IVPB Q12H ALLIE Rx#:[id number] Meropenem 1 gm In Sodium 100 Chloride 0.9% 100 ml @ 33 .3 mls/hr IVPB Q12HR ALLIE Rx#:[id number] Norepinephrine 32 mg In 38.883 Sodium Chloride 0.9% 218 ml @ 0.03 MCG/KG/MIN 1.18 mls/hr IV .Q24H ONE Rx#: [id number] Oral 700 250 0 Output: Urine 1100 935 380 Other: # Bowel Movements 1 - Exam GENERAL DESCRIPTION: Middle-age female lying in bed in no distress RESPIRATORY SYSTEM: Unlabored breathing , decreased breath sounds at bases HEART: S1 S2 regular rate and rhythm , ABDOMEN: Soft , no tenderness EXTREMITIES: No edema feet - Labs CBC & Chem 7: 02/17/24 11:35 02/17/24 11:35 Labs: Abnormal Lab Results - Last 24 Hours (Table) 02/15/24 02/15/24 02/15/24 Range/Units 05:28 16:19 23:13 RBC (3.80-5.40) m/uL Hgb (11.4-16.0) gm/dL Hct (34.0-46.0) % MCH (25.0-35.0) pg MCHC (31.0-37.0) g/dL RDW (11.5-15.5) % Potassium (3.5-5.1) mmol/L Chloride (98-107) mmol/L BUN (7-17) mg/dL Creatinine (0.52-1.04) mg/dL Glucose (74-99) mg/dL POC Glucose (mg/dL) 192 H 213 H (70-110) mg/dL Hemoglobin A1c (<=6.0) % Calcium (8.4-10.2) mg/dL Procalcitonin 0.51 H (0.02-0.50) ng/mL 02/16/24 02/16/24 02/16/24 Range/Units 05:43 05:43 05:43 RBC 2.96 L (3.80-5.40) m/uL Hgb 7.1 L (11.4-16.0) gm/dL Hct 24.0 L (34.0-46.0) % MCH 24.1 L (25.0-35.0) pg MCHC 29.7 L (31.0-37.0) g/dL RDW 19.9 H (11.5-15.5) % Potassium 3.3 L (3.5-5.1) mmol/L Chloride 112 H (98-107) mmol/L BUN 78 H (7-17) mg/dL Creatinine 1.15 H (0.52-1.04) mg/dL Glucose 174 H (74-99) mg/dL POC Glucose (mg/dL) (70-110) mg/dL Hemoglobin A1c 8.2 H (<=6.0) % Calcium 6.7 L (8.4-10.2) mg/dL Procalcitonin (0.02-0.50) ng/mL 02/16/24 Range/Units 11:14 RBC (3.80-5.40) m/uL Hgb (11.4-16.0) gm/dL Hct (34.0-46.0) % MCH (25.0-35.0) pg MCHC (31.0-37.0) g/dL RDW (11.5-15.5) % Potassium (3.5-5.1) mmol/L Chloride (98-107) mmol/L BUN (7-17) mg/dL Creatinine (0.52-1.04) mg/dL Glucose (74-99) mg/dL POC Glucose (mg/dL) 129 H (70-110) mg/dL Hemoglobin A1c (<=6.0) % Calcium (8.4-10.2) mg/dL Procalcitonin (0.02-0.50) ng/mL Microbiology - Last 24 Hours (Table) 02/14/24 13:58 Urine Culture - Final Urine,Catheterized 02/14/24 14:32 Blood Culture Gram Stain - Preliminary Blood Blood Culture - Preliminary Molecular ID 02/14/24 18:16 Gram Stain - Preliminary Other - Other Assessment and Plan (1) Catheter-associated urinary tract infection Current Visit: Yes Status: Acute Code(s): T83.511A - I/I REACT D/T INDWELLING URETHRAL CATHETER, INIT; N39.0 - URINARY TRACT INFECTION, SITE NOT SPECIFIED SNOMED Code(s): 877230530 (2) Allergy to multiple antibiotics Current Visit: No Status: Acute Code(s): Z88.1 - ALLERGY STATUS TO OTHER ANTIBIOTIC AGENTS SNOMED Code(s): 023205922 (3) Pressure injury of sacral region, stage 4 Current Visit: No Status: Acute Code(s): L89.154 - PRESSURE ULCER OF SACRAL REGION, STAGE 4 SNOMED Code(s): 17930137261224 (4) Sepsis Current Visit: No Status: Acute Code(s): A41.9 - SEPSIS, UNSPECIFIED ORGANISM SNOMED Code(s): 08822096 (5) MRSA bacteremia Current Visit: Yes Status: Acute Code(s): R78.81 - BACTEREMIA; B95.62 - METH ICILLIN RESIS STAPH INFCT CAUSING DISEASES CLASSD [id number] SNOMED Code(s): 99995963494469271 Plan: 1patient presented to hospital with sepsis in this patient who did have a hypotension tachycardia likely multifactorial more likely related to the catheter associated tract infection as the patient has significantly positive UA and a suprapubic catheter patient also have a pressure ulcer to the sacral area and the right posterior thigh but no significant slough tissue was noticed 2-patient with multiple antibiotic ALLERGIES that would limit the number of antibiotic safe to use 3--local wound care with the Aquacel silver dressing change every 48 hours 4patient did have a positive blood culture with MRSA source possible related to the wound versus urinary awaiting local cultures 5patient to continue daptomycin and meropenem until her cultures are finalized. Family at the bedside questions were answered Dictation was produced using [employer] dictation software. please excuse any grammatical, word or spelling errors. Time with Patient: Less than 30
--- NOTE | 2024-02-17 15:31 | P.PN ---
Subjective Progress Note Date: 02/17/24 Principal diagnosis: Reason for follow-up sepsis UTI and pressure ulcer Patient is a 58-year-old female with a past medical history significant for diabetes mellitus reflux asthma spina bifida, this patient who is a bedbound and did have a sacral pressure ulcer with the previous episode of osteomyelitis patient has been brought into the hospital from the local shelter after the patient was found to be lethargic mental status changes noticed to be septic require admission to the ICU blood cultures came back positive with MRSA. On today's visit that is 02/17/2024, patient did have resolution of her fever has been afebrile today, patient is breathing comfortably and is currently on room air, patient denies having any significant cough no chest pain shortness of breath, patient denies nausea vomiting or diarrhea and no abdominal pain. Patient white count 6.1, creatinine is 1.14 Objective - Vital Signs Vital signs: Vital Signs Temp 97.7 F 02/17/24 07:06 Pulse 80 02/17/24 09:00 Resp 16 02/17/24 09:00 BP 99/63 02/17/24 08:07 Pulse Ox 97 02/17/24 07:06 FiO2 Intake & Output 02/16/24 02/17/24 02/17/24 18:59 06:59 18:59 Intake Total 2320 Output Total 1690 475 Balance 630 -475 Weight 75 kg Intake: IV 2175 .9 kvo 10 Dextrose 5% in Water 1, 2125 000 ml @ 125 mls/hr IV . Q9H12M ALLIE with Sodium Bicarb (1 Meq/ml) 150 ml Rx#:[id number] Invasive Line 2 40 Intake, IV Titration 125 Amount Dextrose 5% in Water 1, 125 000 ml @ 125 mls/hr IV . Q9H12M ALLIE with Sodium Bicarb (1 Meq/ml) 150 ml Rx#:[id number] Oral 20 Output: Urine 1680 475 Emesis 10 Other: # Bowel Movements 1 - Exam GENERAL DESCRIPTION: Middle-age female lying in bed in no distress RESPIRATORY SYSTEM: Unlabored breathing , decreased breath sounds at bases HEART: S1 S2 regular rate and rhythm , ABDOMEN: Soft , no tenderness EXTREMITIES: No edema feet - Labs CBC & Chem 7: 02/17/24 11:35 02/17/24 11:35 Labs: Abnormal Lab Results - Last 24 Hours (Table) 02/16/24 02/17/24 02/17/24 Range/Units 17:22 05:41 11:35 RBC 3.03 L (3.80-5.40) m/uL Hgb 7.5 L (11.4-16.0) gm/dL Hct 24.9 L (34.0-46.0) % MCH 24.8 L (25.0-35.0) pg MCHC 30.2 L (31.0-37.0) g/dL RDW 20.2 H (11.5-15.5) % Sodium (137-145) mmol/L BUN (7-17) mg/dL Creatinine (0.52-1.04) mg/dL Glucose (74-99) mg/dL POC Glucose (mg/dL) 217 H 130 H (70-110) mg/dL Calcium (8.4-10.2) mg/dL 02/17/24 02/17/24 Range/Units 11:35 11:41 RBC (3.80-5.40) m/uL Hgb (11.4-16.0) gm/dL Hct (34.0-46.0) % MCH (25.0-35.0) pg MCHC (31.0-37.0) g/dL RDW (11.5-15.5) % Sodium 133 L (137-145) mmol/L BUN 78 H (7-17) mg/dL Creatinine 1.14 H (0.52-1.04) mg/dL Glucose 149 H (74-99) mg/dL POC Glucose (mg/dL) 173 H (70-110) mg/dL Calcium 5.5 L* (8.4-10.2) mg/dL Microbiology - Last 24 Hours (Table) 02/15/24 14:25 Blood Culture - Preliminary Blood Assessment and Plan (1) Catheter-associated urinary tract infection Current Visit: Yes Status: Acute Code(s): T83.511A - I/I REACT D/T INDWELLING URETHRAL CATHETER, INIT; N39.0 - URINARY TRACT INFECTION, SITE NOT SPECIFIED SNOMED Code(s): 698510939 (2) Allergy to multiple antibiotics Current Visit: No Status: Acute Code(s): Z88.1 - ALLERGY STATUS TO OTHER ANTIBIOTIC AGENTS SNOMED Code(s): 089134593 (3) Pressure injury of sacral region, stage 4 Current Visit: No Status: Acute Code(s): L89.154 - PRESSURE ULCER OF SACRAL REGION, STAGE 4 SNOMED Code(s): 13096601683480 (4) Sepsis Current Visit: No Status: Acute Code(s): A41.9 - SEPSIS, UNSPECIFIED ORGANISM SNOMED Code(s): 07753005 (5) MRSA bacteremia Current Visit: Yes Status: Acute Code(s): R78.81 - BACTEREMIA; B95.62 - METHICILLIN RESIS STAPH INFCT CAUSING DISEASES CLASSD [facility] SNOMED Code(s): 19918428748690543 Plan: 1patient presented to hospital with sepsis in this patient who did have a hypotension tachycardia likely multifactorial more likely related to the catheter associated tract infection as the patient has significantly positive UA and a suprapubic catheter patient also have a pressure ulcer to the sacral area and the right posterior thigh but no significant slough tissue was noticed 2-patient with multiple antibiotic ALLERGIES that would limit the number of antibiotic safe to use 3--local wound care with the Aquacel silver dressing change every 48 hours 4patient did have a positive blood culture with MRSA, repeat blood cultures currently pending also waiting for the local culture to finalize 5patient currently being treated daptomycin and meropenem while waiting for the repeat blood culture and local culture to finalize Family at the bedside questions were answered Dictation was produced using [employer] dictation software. please excuse any grammatical, word or spelling errors. Time with Patient: Less than 30
[2024-02-17 16:55] LABS: Glucose,Whole Blood 173 mg/dL (70-110)
--- NOTE | 2024-02-17 19:56 | P.PN ---
Subjective Progress Note Date: 02/17/24 Principal diagnosis: Hydronephrosis, possible UTI The patient has undergone Ariadne pouch urinary diversion. This is designed to be a continent reservoir with a catheterizable stoma, but due to leakage she requires an ostomy bag. The reservoir empties incompletely and the patient states that she catheterizes herself 3-4 times daily. Her confusion has resolved, and she reports report mild right side/flank discomfort. Objective - Vital Signs Vital signs: Vital Signs Temp 98.7 F 02/17/24 15:05 Pulse 88 02/17/24 15:05 Resp 16 02/17/24 15:05 BP 89/57 02/17/24 15:05 Pulse Ox 96 02/17/24 15:05 FiO2 Intake & Output 02/17/24 02/17/24 02/18/24 06:59 18:59 06:59 Output Total 475 Balance -475 Weight 75 kg Output: Urine 475 - Constitutional General appearance: Present: average body habitus, cooperative, no acute distress - Gastrointestinal Gastrointestinal Comment(s): Soft, non-tender, non-distended. A right-sided urostomy stoma is present. - Psychiatric Psychiatric: Present: A&O x's 3 - Labs CBC & Chem 7: 02/17/24 11:35 02/17/24 11:35 Labs: Abnormal Lab Results - Last 24 Hours (Table) 02/17/24 02/17/24 02/17/24 Range/Units 05:41 11:35 11:35 RBC 3.03 L (3.80-5.40) m/uL Hgb 7.5 L (11.4-16.0) gm/dL Hct 24.9 L (34.0-46.0) % MCH 24.8 L (25.0-35.0) pg MCHC 30.2 L (31.0-37.0) g/dL RDW 20.2 H (11.5-15.5) % Sodium 133 L (137-145) mmol/L BUN 78 H (7-17) mg/dL Creatinine 1.14 H (0.52-1.04) mg/dL Glucose 149 H (74-99) mg/dL POC Glucose (mg/dL) 130 H (70-110) mg/dL Calcium 5.5 L* (8.4-10.2) mg/dL 02/17/24 02/17/24 Range/Units 11:41 16:53 RBC (3.80-5.40) m/uL Hgb (11.4-16.0) gm/dL Hct (34.0-46.0) % MCH (25.0-35.0) pg MCHC (31.0-37.0) g/dL RDW (11.5-15.5) % Sodium (137-145) mmol/L BUN (7-17) mg/dL Creatinine (0.52-1.04) mg/dL Glucose (74-99) mg/dL POC Glucose (mg/dL) 173 H 173 H (70-110) mg/dL Calcium (8.4-10.2) mg/dL Microbiology - Last 24 Hours (Table) 02/15/24 14:25 Blood Culture - Preliminary Blood Assessment and Plan Assessment: Blood cultures show MRSA. Urine culture shows polymicrobia, the significance of which is unclear. (1) Neurogenic bladder Current Visit: Yes Status: Acute Code(s): N31.9 - NEUROMUSCULAR DYSFUNCTION OF BLADDER, UNSPECIFIED SNOMED Code(s): 138927285 (2) Unspecified hydronephrosis Current Visit: Yes Status: Acute Code(s): N13.30 - UNSPECIFIED HYDRONEPHROSIS SNOMED Code(s): 88589118 Plan: Renal function has improved somewhat. Now that the patient is more alert she will resume stomal catheterization.
[2024-02-17 20:18] LABS: Glucose,Whole Blood 179 mg/dL (70-110)
[2024-02-17] MEDS: INSULIN ASPART (NovoLOG) 100 UNIT/ML VIAL SQ SCH (20:49)
[2024-02-18] MEDS: BUTALB/APAP/CAFF 50-325-40MG TAB PO PRN (00:35)
[2024-02-18 06:07] LABS: Glucose,Whole Blood 147 mg/dL (70-110)
[2024-02-18 08:59] LABS: Basophils # (A) 0.01 X 10*3/uL (0.00-0.10); Basophils % (A) 0.1 %; Eosinophils % (A) 1.5 %; HCT 23.6 % (37.2-46.3); HGB 7.2 g/dL (12.0-15.0); Lymphocytes # (A) 1.47 X 10*3/uL (0.90-5.00); Lymphocytes % (A) 21.5 %; MCH 24.4 pg (27.0-32.0); MCHC 30.5 g/dL (32.0-37.0); Mean Platelet Volume 9.9 FL (9.5-12.2); Monocytes # (A) 0.57 X 10*3/uL (0.20-1.00); Monocytes % (A) 8.3 %; NRBC Per 100 WBC 0 X 10*3/uL (0.00-0.01); Neutrophils # (A) 4.58 X 10*3/uL (1.80-7.70); Platelet Count 312 X 10*3/uL (140-440); RBC 2.95 X 10*6/uL (4.10-5.20); RDW 21.4 % (11.5-14.5); WBC 6.84 X 10*3/uL (4.50-10.00)
[2024-02-18 09:05] LABS: Magnesium 1.4 mg/dL (1.5-2.4)
[2024-02-18 09:39] LABS: BUN/Creat Ratio 46.33 Ratio (12.00-20.00); Blood Urea Nitrogen 69.5 mg/dL (9.0-27.0); Calcium 5.6 mg/dL (8.7-10.3); Carbon Dioxide 22.4 mmol/L (21.6-31.8); Chloride 97 mmol/L (96-109); Glucose 126 mg/dL (70-110); Potassium 4.3 mmol/L (3.5-5.5); Sodium 131 mmol/L (135-145)
--- NOTE | 2024-02-18 09:45 | P.PN ---
Subjective Progress Note Date: 02/18/24 Principal diagnosis: Hydronephrosis, possible UTI The patient has undergone Ariadne pouch urinary diversion. This is designed to be a continent reservoir with a catheterizable stoma, but due to leakage she requires an ostomy bag. The reservoir empties incompletely and the patient states that she catheterizes herself 3-4 times daily. Her confusion has resolved, and she catheterized herself once with return of 50 cc. She continues to experience mild right side/flank discomfort. Objective - Vital Signs Vital signs: Vital Signs Temp 98.2 F 02/18/24 01:53 Pulse 87 02/18/24 01:53 Resp 18 02/18/24 01:53 BP 94/55 02/18/24 01:53 Pulse Ox 98 02/18/24 01:53 FiO2 Intake & Output 02/17/24 02/18/24 02/18/24 18:59 06:59 18:59 Output Total 425 1000 Balance -425 -1000 Weight 75 kg Output: Urine 425 1000 urostomy 100 400 - Constitutional General appearance: Present: average body habitus, cooperative, no acute distress - Gastrointestinal Gastrointestinal Comment(s): Soft, non-tender, non-distended. - Psychiatric Psychiatric: Present: A&O x's 3 - Labs CBC & Chem 7: 02/18/24 03:42 02/18/24 03:42 Labs: Abnormal Lab Results - Last 24 Hours (Table) 02/17/24 02/17/24 02/17/24 Range/Units 11:35 11:35 11:41 RBC 3.03 L (3.80-5.40) m/uL Hgb 7.5 L (11.4-16.0) gm/dL Hct 24.9 L (34.0-46.0) % MCH 24.8 L (25.0-35.0) pg MCHC 30.2 L (31.0-37.0) g/dL RDW 20.2 H (11.5-15.5) % Immature Gran # (0.00-0.04) X 10*3/uL Sodium 133 L (137-145) mmol/L BUN 78 H (7-17) mg/dL Creatinine 1.14 H (0.52-1.04) mg/dL Est GFR (CKD-EPI) (>=60) BUN/Creatinine Ratio (12.00-20.00) Ratio Glucose 149 H (74-99) mg/dL POC Glucose (mg/dL) 173 H (70-110) mg/dL Calcium 5.5 L* (8.4-10.2) mg/dL Magnesium (1.5-2.4) mg/dL 02/17/24 02/17/24 02/18/24 Range/Units 16:53 20:16 03:42 RBC 2.95 L (3.80-5.40) m/uL Hgb 7.2 L (11.4-16.0) gm/dL Hct 23.6 L (34.0-46.0) % MCH 24.4 L (25.0-35.0) pg MCHC 30.5 L (31.0-37.0) g/dL RDW 21.4 H (11.5-15.5) % Immature Gran # 0.11 H (0.00-0.04) X 10*3/uL Sodium (137-145) mmol/L BUN (7-17) mg/dL Creatinine (0.52-1.04) mg/dL Est GFR (CKD-EPI) (>=60) BUN/Creatinine Ratio (12.00-20.00) Ratio Glucose (74-99) mg/dL POC Glucose (mg/dL) 173 H 179 H (70-110) mg/dL Calcium (8.4-10.2) mg/dL Magnesium (1.5-2.4) mg/dL 02/18/24 02/18/24 Range/Units 03:42 06:02 RBC (3.80-5.40) m/uL Hgb (11.4-16.0) gm/dL Hct (34.0-46.0) % MCH (25.0-35.0) pg MCHC (31.0-37.0) g/dL RDW (11.5-15.5) % Immature Gran # (0.00-0.04) X 10*3/uL Sodium 131 L (137-145) mmol/L BUN 69.5 H (7-17) mg/dL Creatinine (0.52-1.04) mg/dL Est GFR (CKD-EPI) 40 L (>=60) BUN/Creatinine Ratio 46.33 H (12.00-20.00) Ratio Glucose 126 H (74-99) mg/dL POC Glucose (mg/dL) 147 H (70-110) mg/dL Calcium 5.6 A* (8.4-10.2) mg/dL Magnesium 1.4 L (1.5-2.4) mg/dL Microbiology - Last 24 Hours (Table) 02/15/24 14:25 Blood Culture - Preliminary Blood Assessment and Plan Assessment: Blood cultures show MRSA. Urine culture shows polymicrobia, the significance of which is unclear. (1) Neurogenic bladder Current Visit: Yes Status: Acute Code(s): N31.9 - NEUROMUSCULAR DYSFUNCTION OF BLADDER, UNSPECIFIED SNOMED Code(s): 095757970 (2) Unspecified hydronephrosis Current Visit: Yes Status: Acute Code(s): N13.30 - UNSPECIFIED HYDRONEPHROSIS SNOMED Code(s): 41767957 Plan: The serum creatinine level has increased to 1.5 today. The patient has been advised to catheterize herself 3-4 times daily to ensure adequate drainage of the pouch.
[2024-02-18] MEDS ORDERED: Magnesium Replacement Protocol 1 EACH MISC MISCELLANE PRN (09:54)
[2024-02-18] MEDS: CALCIUM GLUCONATE IN NACL 2 GM in SALINE 1 100ML.BAG IVPB ONE (10:58)
[2024-02-18] MEDS: SODIUM CHLORIDE 0.9% 1,000 ML IV SCH (11:09)
[2024-02-18 11:44] LABS: Glucose,Whole Blood 138 mg/dL (70-110)
[2024-02-18] MEDS: MAGNESIUM SULFATE-D5W PMX 1 GM in DEXTROSE/WATER 1 100ML.BAG IVPB SCH (12:08)
--- NOTE | 2024-02-18 13:05 | P.PN ---
Subjective Progress Note Date: 02/18/24 Principal diagnosis: Reason for follow-up sepsis UTI and pressure ulcer Patient is a 58-year-old female with a past medical history significant for diabetes mellitus reflux asthma spina bifida, this patient who is a bedbound and did have a sacral pressure ulcer with the previous episode of osteomyelitis patient has been brought into the hospital from the local residential after the patient was found to be lethargic mental status changes noticed to be septic require admission to the ICU blood cultures came back positive with MRSA. On today's visit that is 02/18/2024, Patient is afebrile this morning patient denies having any chest pain shortness of breath or cough, the patient is breathing comfortably and currently on room air, patient denies any abdominal pa in has been complaining of nausea and did not have any bowel movement. Patient white count 6.84, creatinine is 1.5, blood culture with MRSA, Streptococcus local culture pending and urine culture came back negative Objective - Vital Signs Vital signs: Vital Signs Temp 98.5 F 02/18/24 07:25 Pulse 87 02/18/24 07:25 Resp 18 02/18/24 07:25 BP 92/60 02/18/24 07:25 Pulse Ox 98 02/18/24 07:25 FiO2 Intake & Output 02/17/24 02/18/24 02/18/24 18:59 06:59 18:59 Output Total 425 1000 Balance -425 -1000 Weight 75 kg Output: Urine 425 1000 urostomy 100 400 - Exam GENERAL DESCRIPTION: Middle-age female lying in bed in no distress RESPIRATORY SYSTEM: Unlabored breathing , decreased breath sounds at bases HEART: S1 S2 regular rate and rhythm , ABDOMEN: Soft , no tenderness EXTREMITIES: No edema feet - Labs CBC & Chem 7: 02/18/24 03:42 02/18/24 03:42 Labs: Abnormal Lab Results - Last 24 Hours (Table) 02/17/24 02/17/24 02/17/24 Range/Units 11:35 16:53 20:16 RBC (4.10-5.20) X 10*6/uL Hgb (12.0-15.0) g/dL Hct (37.2-46.3) % MCH (27.0-32.0) pg MCHC (32.0-37.0) g/dL RDW (11.5-14.5) % Immature Gran # (0.00-0.04) X 10*3/uL Sodium 133 L (137-145) mmol/L BUN 78 H (7-17) mg/dL Creatinine 1.14 H (0.52-1.04) mg/dL Est GFR (CKD-EPI) (>=60) BUN/Creatinine Ratio (12.00-20.00) Ratio Glucose 149 H (74-99) mg/dL POC Glucose (mg/dL) 173 H 179 H (70-110) mg/dL Calcium 5.5 L* (8.4-10.2) mg/dL Magnesium (1.5-2.4) mg/dL 02/18/24 02/18/24 02/18/24 Range/Units 03:42 03:42 06:02 RBC 2.95 L (4.10-5.20) X 10*6/uL Hgb 7.2 L (12.0-15.0) g/dL Hct 23.6 L (37.2-46.3) % MCH 24.4 L (27.0-32.0) pg MCHC 30.5 L (32.0-37.0) g/dL RDW 21.4 H (11.5-14.5) % Immature Gran # 0.11 H (0.00-0.04) X 10*3/uL Sodium 131 L (137-145) mmol/L BUN 69.5 H (7-17) mg/dL Creatinine (0.52-1.04) mg/dL Est GFR (CKD-EPI) 40 L (>=60) BUN/Creatinine Ratio 46.33 H (12.00-20.00) Ratio Glucose 126 H (74-99) mg/dL POC Glucose (mg/dL) 147 H (70-110) mg/dL Calcium 5.6 A* (8.4-10.2) mg/dL Magnesium 1.4 L (1.5-2.4) mg/dL 02/18/24 Range/Units 11:43 RBC (4.10-5.20) X 10*6/uL Hgb (12.0-15.0) g/dL Hct (37.2-46.3) % MCH (27.0-32.0) pg MCHC (32.0-37.0) g/dL RDW (11.5-14.5) % Immature Gran # (0.00-0.04) X 10*3/uL Sodium (137-145) mmol/L BUN (7-17) mg/dL Creatinine (0.52-1.04) mg/dL Est GFR (CKD-EPI) (>=60) BUN/Creatinine Ratio (12.00-20.00) Ratio Glucose (74-99) mg/dL POC Glucose (mg/dL) 138 H (70-110) mg/dL Calcium (8.4-10.2) mg/dL Magnesium (1.5-2.4) mg/dL Microbiology - Last 24 Hours (Table) 02/14/24 14:32 Blood Culture Gram Stain - Final Blood Blood Culture - Final Methicillin resist S. aureus Strep agalactiae - (group b) Coagulase Negative Staph Molecular ID 02/15/24 14:25 Blood Culture - Preliminary Blood Assessment and Plan (1) Catheter-associated urinary tract infection Current Visit: Yes Status: Acute Code(s): T83.511A - I/I REACT D/T INDWELLING URETHRAL CATHETER, INIT; N39.0 - URINARY TRACT INFECTION, SITE NOT SPECIFIED SNOMED Code(s): 138131329 (2) Allergy to multiple antibiotics Current Visit: No Status: Acute Code(s): Z88.1 - ALLERGY STATUS TO OTHER ANTIBIOTIC AGENTS SNOMED Code(s): 668579901 (3) Pressure injury of sacral region, stage 4 Current Visit: No Status: Acute Code(s): L89.154 - PRESSURE ULCER OF SACRAL REGION, STAGE 4 SNOMED Code(s): 07654268303620 (4) Sepsis Current Visit: No Status: Acute Code(s): A41.9 - SEPSIS, UNSPECIFIED ORGANISM SNOMED Code(s): 31762835 (5) MRSA bacteremia Current Visit: Yes Status: Acute Code(s): R78.81 - BACTEREMIA; B95.62 - METHICILLIN RESIS STAPH INFCT CAUSING DISEASES CLASSD [facility] SNOMED Code(s): 63211186675516861 Plan: 1patient presented to hospital with sepsis in this patient who did have a hypotension tachycardia likely multifactorial more likely related to the catheter associated tract infection as the patient has significantly positive UA and a suprapubic catheter patient also have a pressure ulcer to the sacral area and the right posterior thigh but no significant slough tissue was noticed 2-patient with multiple antibiotic ALLERGIES that would limit the number of antibiotic safe to use 3--local wound care with the Aquacel silver dressing change every 48 hours 4patient did have a positive blood culture with MRSA, repeat blood cultures currently pending also waiting for the local culture to finalize 5patient still has significant cloudy urine repeat UA culture has been requested discussed with the [facility] for admitting team and the patient will continue with daptomycin and meropenem while waiting for the repeat blood culture and local culture to finalize Dictation was produced using [employer] dictation software. please excuse any grammatical, word or spelling errors. Time with Patient: Less than 30
--- NOTE | 2024-02-18 13:10 | P.PN ---
Subjective Progress Note Date: 02/18/24 Patient is a 58-year-old white female with multiple medical comorbidities including spina bifida, paraplegia, hydrocephalus, Chiari malformation, VA shunt, Gates's palsy, urostomy, recurrent urinary tract infections, chronic kidney disease, dysphagia, diabetes mellitus, paraplegia and is bedbound. She does have a chronic sacral decubitus pressure ulcer as well. She resides at [facility]. At the outside facility, she was noted to be lethargic and confused. Blood pressure was noted to be significantly hypotensive with a systolic pressure of 70 mmHg. She was sent into the emergency department for evaluation. UA concerning for possible urinary tract infection. She was started on empiric antibiotics including meropenem by infectious disease specialist, she has history of MDRO infections. She is currently in room 255, she remains lethargic and confused. Able to follow simple commands and answer some orientation questions. She is overall a poor historian. No specific complaints from the patient. She is on room air. SpO2 reading 96%. CXR showing mild pulmonary vascular congestion. No focal infiltrates noted. Normal sinus rhythm on bedside monitor. As far as the patient's hypotension, she is fluid resuscitated with a total of 2 L normal saline bolus. She was then started on vasopressors, currently requiring norepinephrine which is infusing at 0.07 mcg/kg/min. Normal saline continues to infuse at 130 mL/h. She has urostomy, and is making adequate urine output. She has a rather large sacral decubitus pressure ulcer, mostly granulation tissue. The appropriate cultures are pending. Most recent CBC: WBC count 12, hemoglobin 8, hematocrit 27.9, platelets 523. Her hemoglobin was 6.8 g/dL on arrival, and she is status post 1 unit PRBCs. No overt signs of acute blood loss. She is known to have chronic anemia. CMP: Sodium 139, potassium 5.6, chloride 117, serum bicarb 10, BUN 108, creatinine 2.03, glucose 107. Lactic 0.7. AST 32, ALT 25, ALP 456. Total b ilirubin 0.3. Troponin less than 0.012. Urinalysis positive for leukocyte esterase and few bacteria. Patient is a DO NOT RESUSCITATE/DO NOT INTUBATE status. This was reportedly verified by the ER physician with family prior to admission. Overall prognosis is guarded secondary to above-mentioned comorbidities. The patient is seen today February 16, 2024 in follow-up in the intensive care unit. She is currently sitting up in bed. Awake and alert. Confused at times. Denies any worsening shortness of breath, cough or congestion. She is maintaining good O2 saturations in the 90s on room air. She has D5W with 3 A of bicarb at 130 mL/h. Her blood cultures are positive for gram-positive cocci in chains and clusters. She is currently on daptomycin and meropenem. Potassium 3.3. Bicarb 23. BUN 78. Creatinine 1.15. Glucose 174. She is on heparin for DVT prophylaxis. The patient is seen today February 17, 2024 in follow-up on the regular medical floor. She is currently sitting up in bed. Awake and alert in no acute distress. She is maintaining O2 saturations in the 90s on room air. She has D5W with 3 A of bicarb at 125 mL/h. Cultures positive for gram-positive cocci in chains and clusters. Urine culture revealed no growth. Glucose 173. Today's labs are pending. She is continued on daptomycin and meropenem. The patient is seen today February 18, 2024 in follow-up on the regular medical floor. She is awake and alert in no acute distress. Sitting up in bed. Mainta ining O2 saturations in the 90s on room air. She remains on daptomycin and meropenem. Cultures were positive for MRSA and group B strep agalactiae. White count 6.8. Hemoglobin 7.2. Platelets 312. Sodium 131. Potassium 4.3. Bicarb 22. BUN 70. Creatinine 1.5. Glucose 126. Heparin for DVT prophylaxis. Protonix for GI prophylaxis. Objective - Vital Signs Vital signs: Vital Signs Temp 98.5 F 02/18/24 07:25 Pulse 87 02/18/24 07:25 Resp 18 02/18/24 07:25 BP 92/60 02/18/24 07:25 Pulse Ox 98 02/18/24 07:25 FiO2 Intake & Output 02/17/24 02/18/24 02/18/24 18:59 06:59 18:59 Output Total 425 1000 Balance -425 -1000 Weight 75 kg Output: Urine 425 1000 urostomy 100 400 - Exam GENERAL EXAM: Awake, pleasant 58-year-old female, on room air, in no acute distress. HEAD: Normocephalic and atraumatic EYES: Normal reaction of pupils, equal size. NOSE: Clear with pink turbinates. THROAT: No erythema or exudates. NECK: No masses, no JVD. CHEST: No chest wall deformity. LUNGS: Equal air entry with no crackles, wheeze, rhonchi or dullness. No conversational dyspnea or accessory muscle use.. CVS: S1 and S2 normal with no audible murmur, regular rhythm. No extra heart sounds ABDOMEN: No hepatosplenomegaly, active bowel sounds. Remote appearing abdominal incision. Urostomy bag noted draining yellow cloudy/sediment urine. SPINE: No scoliosis or deformity SKIN: Large sacral decubitus pressure ulcer stage IV, progressing down to the fascial/bone with large amounts of pink granulation tissue. CENTRAL NERVOUS SYSTEM: Lethargic, follows simple commands, unable to move bilateral lower extremities. EXTREMITIES: Anasarca and bilateral lower extremity edema. No clubbing, or cyanosis. Peripheral pulses are intact. - Labs CBC & Chem 7: 02/18/24 03:42 02/18/24 03:42 Labs: Abnormal Lab Results - Last 24 Hours (Table) 02/17/24 02/17/24 02/17/24 Range/Units 11:35 16:53 20:16 RBC (4.10-5.20) X 10*6/uL Hgb (12.0-15.0) g/dL Hct (37.2-46.3) % MCH (27.0-32.0) pg MCHC (32.0-37.0) g/dL RDW (11.5-14.5) % Immature Gran # (0.00-0.04) X 10*3/uL Sodium 133 L (137-145) mmol/L BUN 78 H (7-17) mg/dL Creatinine 1.14 H (0.52-1.04) mg/dL Est GFR (CKD-EPI) (>=60) BUN/Creatinine Ratio (12.00-20.00) Ratio Glucose 149 H (74-99) mg/dL POC Glucose (mg/dL) 173 H 179 H (70-110) mg/dL Calcium 5.5 L* (8.4-10.2) mg/dL Magnesium (1.5-2.4) mg/dL 02/18/24 02/18/24 02/18/24 Range/Units 03:42 03:42 06:02 RBC 2.95 L (4.10-5.20) X 10*6/uL Hgb 7.2 L (12.0-15.0) g/dL Hct 23.6 L (37.2-46.3) % MCH 24.4 L (27.0-32.0) pg MCHC 30.5 L (32.0-37.0) g/dL RDW 21.4 H (11.5-14.5) % Immature Gran # 0.11 H (0.00-0.04) X 10*3/uL Sodium 131 L (137-145) mmol/L BUN 69.5 H (7-17) mg/dL Creatinine (0.52-1.04) mg/dL Est GFR (CKD-EPI) 40 L (>=60) BUN/Creatinine Ratio 46.33 H (12.00-20.00) Ratio Glucose 126 H (74-99) mg/dL POC Glucose (mg/dL) 147 H (70-110) mg/dL Calcium 5.6 A* (8.4-10.2) mg/dL Magnesium 1.4 L (1.5-2.4) mg/dL 02/18/24 Range/Units 11:43 RBC (4.10-5.20) X 10*6/uL Hgb (12.0-15.0) g/dL Hct (37.2-46.3) % MCH (27.0-32.0) pg MCHC (32.0-37.0) g/dL RDW (11.5-14.5) % Immature Gran # (0.00-0.04) X 10*3/uL Sodium (137-145) mmol/L BUN (7-17) mg/dL Creatinine (0.52-1.04) mg/dL Est GFR (CKD-EPI) (>=60) BUN/Creatinine Ratio (12.00-20.00) Ratio Glucose (74-99) mg/dL POC Glucose (mg/dL) 138 H (70-110) mg/dL Calcium (8.4-10.2) mg/dL Magnesium (1.5-2.4) mg/dL Microbiology - Last 24 Hours (Table) 02/14/24 14:32 Blood Culture Gram Stain - Final Blood Blood Culture - Final Methicillin resist S. aureus Strep agalactiae - (group b) Coagulase Negative Staph Molecular ID 02/15/24 14:25 Blood Culture - Preliminary Blood Assessment and Plan Assessment: Hypotension and septic shock, secondary to bacteremia. Recovered and off norepinephrine Bacteremia secondary to MRSA and group B strep agalactiae, currently on meropenem and daptomycin Anemia of chronic disease, hemoglobin noted to be 6.8 g/dL on admission status post 1 unit PRBC up to 7.2 g/dL Chronic stage III sacral decubitus pressure ulcer and stage III pressure ulcer of the left buttocks Acute kidney injury, likely secondary to hypotension and ATN Severe non-anion gap metabolic acidosis Hyperkalemia secondary to above Diabetes mellitus, insulin-dependent History of spina bifida History of Chiari malformation History of hydrocephalus and VA shunt History of urostomy and recurrent urinary tract infections History of asthma, stable Obesity, with a BMI of 31.8 kg/m Plan: The patient was seen and evaluated Microbiology, labs and medications reviewed Continue daptomycin and meropenem Remains hemodynamically stable, on room air This patient was seen independently by the pulmonary/critical care nurse practitioner addressing pulmonary/critical care issues I have personally seen and examined the patient, performed the documentation and the assessment and plan as written. Number of minutes spent on the visit: 25.
[2024-02-18] MEDS: HYDROcodone/APAP 7.5-325MG 1 EACH TAB PO PRN (13:46)
[2024-02-18] MEDS: KETOROLAC 15 MG/ML 1 ML VIAL IVP PRN (13:46)
--- NOTE | 2024-02-18 14:48 | P.PN ---
Subjective Progress Note Date: 02/18/24 This is a pleasant 58 year old female with medical history of spina bifida, asthma, diabetes mellitus , GERD, sleep apnea, chiari malformation. Patient comes to the hospital from the skilled nursing with concern for altered mentation and low blood pressure down into the 70s systolic. Patient was admitted to the ICU with consults placed to pulmonary workforce advisor and ID. Patient is bedbound at baseline; does have known sacral pressure injury as well as pressure injury to the left thigh. Patient was given fluid bolus and started on levophed pressor support. Patient has been started on IV meropenem with concern for UTI and does have history of ESBL. Chest x-ray reveals mild pulmonary vascular congestion. EKG reveals sinus tachycardia heart rate of [address] or T wave changes. Blood work reveals a white blood cell count of 8.1, hemoglobin 6.8, platelet count of 488, potassium of 5.6, BUN of 108, creatinine of 2.03, lactic acid of 0.7, troponin level is negative, urinalysis is significantly abnormal with a turbid appearance, large leukocyte Estrace, greater than 182 WBCs and few bacteria. Patient is not complaining of any chest pain or shortness of breath she is currently awake and alert and less confused her family is at the bedside. Her main complaint today is the pain she is having from the sacral wound. Patient is maintained on MS contin outpatient will need to be held secondary to the renal dysfunction. Blood cultures today have come back showing gram-positive cocci in chains as well as gram-positive cocci in clusters, Staphylococcus species, Streptococcus species, strep collected group B, MRSA are showing as positive. Preliminary wound culture of the sacral ulcer reveal few gram positive bacilli, few gram positive cocci, and few gram negative bacilli. Patient is not on combination of IV daptomycin, IV meropenem. 02/16/2024 Is evaluated in follow-up on the medical floor. She is more awake alert. Patient is off the pressor support and her blood pressure is maintaining in 120s to 130s systolic. Her creatinine has improved significantly and down to 1.15. White blood cell count is 4.0, hemoglobin 7.1, potassium 3.3 patient continues on a combination of IV daptomycin and IV meropenem. Her urine culture is negative, found to have MRSA bacteremia and this is likely from the sacral decubitus wound. Patient was seen in consultation by wound care and recommended for a wound VAC to the sacral decubitus ulcer. 02/17/2024 Evaluated in follow-up in the medical floor. She is concerned with not being able to straight cath her urostomy and worried about the backflow. There is significant sediment in the urine is a cloudy color. Her urine culture was found to be negative. We are waiting for repeat blood cultures so far pulmonary is negative she remains on IV daptomycin and IV meropenem. Wound VAC in place to the sacral ulcer. Once patient is medically ready she will discharge back to [facility]. Work today reveals a white blood cell count of 6.1, hemoglobin 7.5, sodium 133, BUN 78, creatinine 1.14, calcium 5.5. 02/18/2024 Patient evaluated today on the medical floor. She was strait cathed a few times through the urostomy and the urine is cloudy and turbid. We will send a urine culture from the stoma. Patient continues with wound VAC on the sacral ulcer having significant pain. And the MS Contin has been held for now as her blood pressure has been low. Renal function is slowly improving. Hgb 7.2, Sodium 131, BUN 69.5, creatinine 1.5, glucose 130, calcium 5.6, magnesium 1.4. Blood pressure 92/60. Blood culture showing MRA, Group B strep, Coagulase negative staph. Repeat blood culture pending. REVIEW OF SYSTEMS: CONSTITUTIONAL: No fever, no malaise. Reports fatigue. HEENT: No recent visual problems or hearing problems. Denied any sore throat. CARDIOVASCULAR: No chest pain, orthopnea, PND, no palpitations, no syncope. PULMONARY: No shortness of breath, no cough, no hemoptysis. GASTROINTESTINAL: No diarrhea, no nausea, no vomiting, no abdominal pain. NEUROLOGICAL: No headaches, no weakness, no numbness. PHYSICAL EXAMINATION: GENERAL: The patient is alert and oriented x2-3, not in any acute distress. Well developed, well nourished. HEENT: Pupils are round and equally reacting to light. EOMI. No scleral icterus. No conjunctival pallor. Normocephalic, atraumatic. No pharyngeal erythema. No thyromegaly. CARDIOVASCULAR: S1 and S2 present. No murmurs, rubs, or gallops. PULMONARY: Chest is clear to auscultation, no wheezing or crackles. ABDOMEN: Soft, nontender, nondistended, normoactive bowel sounds. No palpable organomegaly. MUSCULOSKELETAL: No joint swelling or deformity. EXTREMITIES: No cyanosis, clubbing, Mild pedal edema. NEUROLOGICAL: Gross neurological examination did not reveal any focal deficits. Diffuse weakness. SKIN: Sacral pressure injury. Assessment Acute urinary tract infection; likely catheter associated; with sepsis and septic shock, POA MRSA/Strep Bacteremia Sacral pressure injury, left thigh pressure injury POA stage III to both Acute kidney injury acute tubular necrosis from infection. Altered mental status acute metabolic and toxic encephalopathy Neurogenic bladder and urostomy stoma History of Spina Bifidi and chiari malformation patient is bedbound at baseline Diabetes Mellitus type 2 Gastroesophageal reflux disease Hx of asthma with no acute exacerbation Hx of hydrocephalus and VA shunt Chronic kidney disease Anemia of chronic disease GI prophylaxis DVT prophylaxis Do Not Resuscitate/Do Not Intubate Plan Continue IV antibiotics with IV meropenem/IV daptomycin while waiting for final cultures Blood culture has been repeated and pending. ID following closely. Wound VAC to be applied to the sacral wound Change fluid to normal saline at 100 mls.hr Levophed has been discontinued patient moved out of the ICU. Need to hold the MS Contin due to renal dysfunction Strait cath stoma 3/4 times per day and also send a urine culture from the stoma. Urology consultation Wound care consult Repeat labs in the AM. The impression and plan of care has been dictated by Viviana Sellers Nurse Practitioner as directed. Dr. Shimon MD I have performed a history and physical examination and medical decision making of this patient, discussed the same with the dictator, and agree with the dictators assessment and plan as written, documented as a scribe. Based on total visit time, I have performed more than 50% of this visit. Objective - Vital Signs Vital signs: Vital Signs Temp 98.2 F 02/18/24 01:53 Pulse 87 02/18/24 01:53 Resp 18 02/18/24 01:53 BP 94/55 02/18/24 01:53 Pulse Ox 98 02/18/24 01:53 FiO2 Intake & Output 02/17/24 02/18/24 02/18/24 18:59 06:59 18:59 Output Total 425 1000 Balance -425 -1000 Weight 75 kg Output: Urine 425 1000 urostomy 100 400 - Labs CBC & Chem 7: 02/18/24 03:42 02/18/24 03:42 Labs: Abnormal Lab Results - Last 24 Hours (Table) 02/17/24 02/17/24 02/17/24 Range/Units 11:35 11:35 11:41 RBC 3.03 L (3.80-5.40) m/uL Hgb 7.5 L (11.4-16.0) gm/dL Hct 24.9 L (34.0-46.0) % MCH 24.8 L (25.0-35.0) pg MCHC 30.2 L (31.0-37.0) g/dL RDW 20.2 H (11.5-15.5) % Immature Gran # (0.00-0.04) X 10*3/uL Sodium 133 L (137-145) mmol/L BUN 78 H (7-17) mg/dL Creatinine 1.14 H (0.52-1.04) mg/dL Est GFR (CKD-EPI) (>=60) BUN/Creatinine Ratio (12.00-20.00) Ratio Glucose 149 H (74-99) mg/dL POC Glucose (mg/dL) 173 H (70-110) mg/dL Calcium 5.5 L* (8.4-10.2) mg/dL Magnesium (1.5-2.4) mg/dL 02/17/24 02/17/24 02/18/24 Range/Units 16:53 20:16 03:42 RBC 2.95 L (3.80-5.40) m/uL Hgb 7.2 L (11.4-16.0) gm/dL Hct 23.6 L (34.0-46.0) % MCH 24.4 L (25.0-35.0) pg MCHC 30.5 L (31.0-37.0) g/dL RDW 21.4 H (11.5-15.5) % Immature Gran # 0.11 H (0.00-0.04) X 10*3/uL Sodium (137-145) mmol/L BUN (7-17) mg/dL Creatinine (0.52-1.04) mg/dL Est GFR (CKD-EPI) (>=60) BUN/Creatinine Ratio (12.00-20.00) Ratio Glucose (74-99) mg/dL POC Glucose (mg/dL) 173 H 179 H (70-110) mg/dL Calcium (8.4-10.2) mg/dL Magnesium (1.5-2.4) mg/dL 02/18/24 02/18/24 Range/Units 03:42 06:02 RBC (3.80-5.40) m/uL Hgb (11.4-16.0) gm/dL Hct (34.0-46.0) % MCH (25.0-35.0) pg MCHC (31.0-37.0) g/dL RDW (11.5-15.5) % Immature Gran # (0.00-0.04) X 10*3/uL Sodium 131 L (137-145) mmol/L BUN 69.5 H (7-17) mg/dL Creatinine (0.52-1.04) mg/dL Est GFR (CKD-EPI) 40 L (>=60) BUN/Creatinine Ratio 46.33 H (12.00-20.00) Ratio Glucose 126 H (74-99) mg/dL POC Glucose (mg/dL) 147 H (70-110) mg/dL Calcium 5.6 A* (8.4-10.2) mg/dL Magnesium 1.4 L (1.5-2.4) mg/dL Microbiology - Last 24 Hours (Table) 02/15/24 14:25 Blood Culture - Preliminary Blood Assessment and Plan Time with Patient: Less than 30
[2024-02-18 17:07] LABS: Glucose,Whole Blood 120 mg/dL (70-110)
[2024-02-18 20:10] LABS: Glucose,Whole Blood 125 mg/dL (70-110)
[2024-02-19 06:02] LABS: Glucose,Whole Blood 117 mg/dL (70-110)
[2024-02-19 08:25] LABS: African American GFR (CKD) 64 (>60 ml/min/1.73 sqM); Anion Gap 9 mmol/L; Blood Urea Nitrogen 65 mg/dL (7-17); Carbon Dioxide 17 mmol/L (22-30); Chloride 102 mmol/L (98-107); Glucose 93 mg/dL (74-99); Magnesium 1.9 mg/dL (1.6-2.3); Non-African American GFR(CKD) 56 (>60 ml/min/1.73 sqM); Potassium 3.9 mmol/L (3.5-5.1); Sodium 128 mmol/L (137-145)
[2024-02-19 08:39] LABS: Calcium 6.2 mg/dL (8.4-10.2)
--- NOTE | 2024-02-19 10:05 | P.PN ---
Subjective Progress Note Date: 02/19/24 Principal diagnosis: Hydronephrosis, possible UTI The patient has undergone Ariadne pouch urinary diversion. This is designed to be a continent reservoir with a catheterizable stoma, but due to leakage she requires an ostomy bag. The reservoir empties incompletely and the patient states that she catheterizes herself 3-4 times daily. Her confusion has resolved, and she has resumed self-catheterization. However, she has been able to do it only 1-2 times daily and states that her urine is very cloudy. She anticipates getting her catheterization supplies later today. Objective - Vital Signs Vital signs: Vital Signs Temp 98.5 F 02/19/24 02:00 Pulse 81 02/19/24 02:00 Resp 18 02/19/24 02:00 BP 94/57 02/19/24 02:00 Pulse Ox 98 02/19/24 02:00 FiO2 Intake & Output 02/18/24 02/18/24 02/19/24 06:59 18:59 06:59 Output Total 425 1300 400 Balance -425 -1300 -400 Output: Urine 425 1300 400 urostomy 100 700 100 Other: # Bowel Movements 1 - Constitutional General appearance: Present: average body habitus, cooperative, no acute distress - Psychiatric Psychiatric: Present: A&O x's 3 - Labs CBC & Chem 7: 02/18/24 03:42 02/19/24 07:30 Labs: Abnormal Lab Results - Last 24 Hours (Table) 02/18/24 02/18/24 02/18/24 Range/Units 03:42 03:42 11:43 RBC 2.95 L (4.10-5.20) X 10*6/uL Hgb 7.2 L (12.0-15.0) g/dL Hct 23.6 L (37.2-46.3) % MCH 24.4 L (27.0-32.0) pg MCHC 30.5 L (32.0-37.0) g/dL RDW 21.4 H (11.5-14.5) % Immature Gran # 0.11 H (0.00-0.04) X 10*3/uL Sodium 131 L (135-145) mmol/L BUN 69.5 H (9.0-27.0) mg/dL Est GFR (CKD-EPI) 40 L (>=60) BUN/Creatinine Ratio 46.33 H (12.00-20.00) Ratio Glucose 126 H (70-110) mg/dL POC Glucose (mg/dL) 138 H (70-110) mg/dL Calcium 5.6 A* (8.7-10.3) mg/dL Magnesium 1.4 L (1.5-2.4) mg/dL 02/18/24 02/18/24 02/19/24 Range/Units 17:06 20:09 06:01 RBC (4.10-5.20) X 10*6/uL Hgb (12.0-15.0) g/dL Hct (37.2-46.3) % MCH (27.0-32.0) pg MCHC (32.0-37.0) g/dL RDW (11.5-14.5) % Immature Gran # (0.00-0.04) X 10*3/uL Sodium (135-145) mmol/L BUN (9.0-27.0) mg/dL Est GFR (CKD-EPI) (>=60) BUN/Creatinine Ratio (12.00-20.00) Ratio Glucose (70-110) mg/dL POC Glucose (mg/dL) 120 H 125 H 117 H (70-110) mg/dL Calcium (8.7-10.3) mg/dL Magnesium (1.5-2.4) mg/dL Microbiology - Last 24 Hours (Table) 02/15/24 14:25 Blood Culture - Preliminary Blood 02/14/24 18:16 Anaerobic Culture - Final Coccyx 02/17/24 07:53 Blood Culture - Preliminary Blood 02/14/24 14:32 Blood Culture Gram Stain - Final Blood Blood Culture - Final Methicillin resist S. aureus Strep agalactiae - (group b) Coagulase Negative Staph Molecular ID Assessment and Plan Assessment: Blood cultures show MRSA. Urine culture shows polymicrobia, the significance of which is unclear. (1) Neurogenic bladder Current Visit: Yes Status: Acute Code(s): N31.9 - NEUROMUSCULAR DYSFUNCTION OF BLADDER, UNSPECIFIED SNOMED Code(s): 579358408 (2) Unspecified hydronephrosis Current Visit: Yes Status: Acute Code(s): N13.30 - UNSPECIFIED HYDRONEPHR OSIS SNOMED Code(s): 77655547 Plan: The serum creatinine level has decreased to 1.1 today. The patient has been advised to catheterize herself 3-4 times daily to ensure adequate drainage of the pouch once she receives her supplies.
--- NOTE | 2024-02-19 11:11 | P.PN ---
Subjective Progress Note Date: 02/19/24 Patient is a 58-year-old white female with multiple medical comorbidities including spina bifida, paraplegia, hydrocephalus, Chiari malformation, VA shunt, Gates's palsy, urostomy, recurrent urinary tract infections, chronic kidney disease, dysphagia, diabetes mellitus, paraplegia and is bedbound. She does have a chronic sacral decubitus pressure ulcer as well. She resides at [facility]. At the outside facility, she was noted to be lethargic and confused. Blood pressure was noted to be significantly hypotensive with a systolic pressure of 70 mmHg. She was sent into the emergency department for evaluation. UA concerning for possible urinary tract infection. She was started on empiric antibiotics including meropenem by infectious disease specialist, she has history of MDRO infections. She is currently in room 255, she remains lethargic and confused. Able to follow simple commands and answer some orientation questions. She is overall a poor historian. No specific complaints from the patient. She is on room air. SpO2 reading 96%. CXR showing mild pulmonary vascular congestion. No focal infiltrates noted. Normal sinus rhythm on bedside monitor. As far as the patient's hypotension, she is fluid resuscitated with a total of 2 L normal saline bolus. She was then started on vasopressors, currently requiring norepinephrine which is infusing at 0.07 mcg/kg/min. Normal saline continues to infuse at 130 mL/h. She has urostomy, and is making adequate urine output. She has a rather large sacral decubitus pressure ulcer, mostly granulation tissue. The appropriate cultures are pending. Most recent CBC: WBC count 12, hemoglobin 8, hematocrit 27.9, platelets 523. Her hemoglobin was 6.8 g/dL on arrival, and she is status post 1 unit PRBCs. No overt signs of acute blood loss. She is known to have chronic anemia. CMP: Sodium 139, potassium 5.6, chloride 117, serum bicarb 10, BUN 108, creatinine 2.03, glucose 107. Lactic 0.7. AST 32, ALT 25, ALP 456. Total b ilirubin 0.3. Troponin less than 0.012. Urinalysis positive for leukocyte esterase and few bacteria. Patient is a DO NOT RESUSCITATE/DO NOT INTUBATE status. This was reportedly verified by the ER physician with family prior to admission. Overall prognosis is guarded secondary to above-mentioned comorbidities. The patient is seen today February 16, 2024 in follow-up in the intensive care unit. She is currently sitting up in bed. Awake and alert. Confused at times. Denies any worsening shortness of breath, cough or congestion. She is maintaining good O2 saturations in the 90s on room air. She has D5W with 3 A of bicarb at 130 mL/h. Her blood cultures are positive for gram-positive cocci in chains and clusters. She is currently on daptomycin and meropenem. Potassium 3.3. Bicarb 23. BUN 78. Creatinine 1.15. Glucose 174. She is on heparin for DVT prophylaxis. The patient is seen today February 17, 2024 in follow-up on the regular medical floor. She is currently sitting up in bed. Awake and alert in no acute distress. She is maintaining O2 saturations in the 90s on room air. She has D5W with 3 A of bicarb at 125 mL/h. Cultures positive for gram-positive cocci in chains and clusters. Urine culture revealed no growth. Glucose 173. Today's labs are pending. She is continued on daptomycin and meropenem. The patient is seen today February 18, 2024 in follow-up on the regular medical floor. She is awake and alert in no acute distress. Sitting up in bed. Mainta ining O2 saturations in the 90s on room air. She remains on daptomycin and meropenem. Cultures were positive for MRSA and group B strep agalactiae. White count 6.8. Hemoglobin 7.2. Platelets 312. Sodium 131. Potassium 4.3. Bicarb 22. BUN 70. Creatinine 1.5. Glucose 126. Heparin for DVT prophylaxis. Protonix for GI prophylaxis. The patient is seen today February 19, 2024 in follow-up on the regular medical floor. She is currently sitting up in bed. Awake and alert in no acute distre ss. Maintaining O2 saturations in the 90s on room air. She has normal saline at 100 mL/h. She is continued on daptomycin and meropenem. Her blood cultures are positive for MRSA, strep agalactiae, group B. Follow-up blood cultures are pending. Sodium 128. Potassium 3.9. Bicarb 17. BUN 65. Creatinine 1.10. She remains on heparin for DVT prophylaxis. Objective - Vital Signs Vital signs: Vital Signs Temp 98.6 F 02/19/24 07:12 Pulse 88 02/19/24 07:12 Resp 18 02/19/24 07:12 BP 123/76 02/19/24 07:12 Pulse Ox 98 02/19/24 07:12 FiO2 Intake & Output 02/18/24 02/19/24 02/19/24 18:59 06:59 18:59 Output Total 1300 400 Balance -1300 -400 Output: Urine 1300 400 urostomy 700 100 Other: # Bowel Movements 1 - Exam GENERAL EXAM: Awake, alert 58-year-old female, on room air, sitting up in bed, in no acute distress. HEAD: Normocephalic and atraumatic EYES: Normal reaction of pupils, equal size. NOSE: Clear with pink turbinates. THROAT: No erythema or exudates. NECK: No masses, no JVD. CHEST: No chest wall deformity. LUNGS: Equal air entry with no crackles, wheeze, rhonchi or dullness. No conversational dyspnea or accessory muscle use.. CVS: S1 and S2 normal with no audible murmur, regular rhythm. No extra heart angus nds ABDOMEN: No hepatosplenomegaly, active bowel sounds. Remote appearing abdominal incision. Urostomy bag noted draining yellow cloudy/sediment urine. SPINE: No scoliosis or deformity SKIN: Large sacral decubitus pressure ulcer stage IV, progressing down to the fascial/bone with large amounts of pink granulation tissue. CENTRAL NERVOUS SYSTEM: Lethargic, follows simple commands, unable to move bilateral lower extremities. EXTREMITIES: Anasarca and bilateral lower extremity edema. No clubbing, or cyanosis. Peripheral pulses are intact. - Labs CBC & Chem 7: 02/18/24 03:42 02/19/24 07:30 Labs: Abnormal Lab Results - Last 24 Hours (Table) 02/18/24 02/18/24 02/18/24 Range/Units 11:43 17:06 20:09 Sodium (137-145) mmol/L Carbon Dioxide (22-30) mmol/L BUN (7-17) mg/dL Creatinine (0.52-1.04) mg/dL POC Glucose (mg/dL) 138 H 120 H 125 H (70-110) mg/dL Calcium (8.4-10.2) mg/dL 02/19/24 02/19/24 Range/Units 06:01 07:30 Sodium 128 L (137-145) mmol/L Carbon Dioxide 17 L (22-30) mmol/L BUN 65 H (7-17) mg/dL Creatinine 1.10 H (0.52-1.04) mg/dL POC Glucose (mg/dL) 117 H (70-110) mg/dL Calcium 6.2 L* (8.4-10.2) mg/dL Microbiology - Last 24 Hours (Table) 02/15/24 14:25 Blood Culture - Preliminary Blood 02/14/24 18:16 Anaerobic Culture - Final Coccyx 02/17/24 07:53 Blood Culture - Preliminary Blood 02/14/24 14:32 Blood Culture Gram Stain - Final Blood Blood Culture - Final Methicillin resist S. aureus Strep agalactiae - (group b) Coagulase Negative Staph Molecular ID Assessment and Plan Assessment: Hypotension and septic shock, secondary to bacteremia. Recovered and off norepinephrine Bacteremia secondary to MRSA and group B strep agalactiae, currently on meropenem and daptomycin Anemia of chronic disease, hemoglobin noted to be 6.8 g/dL on admission status post 1 unit PRBC up to 7.2 g/dL Chronic stage III sacral decubitus pressure ulcer and stage III pressure ulcer of the left buttocks Acute kidney injury, likely secondary to hypotension and ATN Severe non-anion gap metabolic acidosis Hyperkalemia secondary to above Diabetes mellitus, insulin-dependent History of spina bifida History of Chiari malformation History of hydrocephalus and VA shunt History of urostomy and recurrent urinary tract infections History of asthma, stable Obesity, with a BMI of 31.8 kg/m Plan: The patient was seen and evaluated Microbiology, labs and medications reviewed Continued on daptomycin and meropenem Remains hemodynamically stable, on room air We will see the patient on an as needed basis I have personally seen and examined the patient, performed the documentation and the assessment and plan as written. Number of minutes spent on the visit: 10.
[2024-02-19 11:52] LABS: Glucose,Whole Blood 139 mg/dL (70-110)
[2024-02-19 13:20] LABS: Basophils # (A) 0.01 X 10*3/uL (0.00-0.10); Basophils % (A) 0.1 %; Eosinophils # (A) 0.11 X 10*3/uL (0.04-0.35); Eosinophils % (A) 1.4 %; HCT 25.7 % (37.2-46.3); HGB 7.7 g/dL (12.0-15.0); Lymphocytes # (A) 1.67 X 10*3/uL (0.90-5.00); Lymphocytes % (A) 21.8 %; MCH 24.1 pg (27.0-32.0); MCV 80.3 FL (80.0-97.0); Mean Platelet Volume 9.4 FL (9.5-12.2); Monocytes # (A) 0.53 X 10*3/uL (0.20-1.00); Monocytes % (A) 6.9 %; NRBC Per 100 WBC 0 X 10*3/uL (0.00-0.01); Neutrophils # (A) 5.24 X 10*3/uL (1.80-7.70); Neutrophils % (A) 68.6 %; Platelet Count 276 X 10*3/uL (140-440); RDW 21.2 % (11.5-14.5); WBC 7.65 X 10*3/uL (4.50-10.00)
[2024-02-19 17:11] LABS: Glucose,Whole Blood 155 mg/dL (70-110)
[2024-02-19 20:46] LABS: Glucose,Whole Blood 227 mg/dL (70-110)
--- NOTE | 2024-02-19 21:07 | P.PN ---
Subjective Progress Note Date: 02/19/24 Principal diagnosis: Reason for follow-up sepsis UTI and pressure ulcer Patient is a 58-year-old female with a past medical history significant for diabetes mellitus reflux asthma spina bifida, this patient who is a bedbound and did have a sacral pressure ulcer with the previous episode of osteomyelitis patient has been brought into the hospital from the local [facility] after the patient was found to be lethargic mental status changes noticed to be septic require admission to the ICU blood cultures came back positive with MRSA. On today's visit that is 02/19/2024,the patient denies any fever or any chills, patient is breathing comfortably on room air, the patient denies chest pain shortness of breath and no significant cough, patient denies abdominal pain, no nausea vomiting or diarrhea. No new symptoms. Patient white count 7.65, creatinine is 1.10, blood cultures repeat currently pending Objective - Vital Signs Vital signs: Vital Signs Temp 98.5 F 02/19/24 02:00 Pulse 81 02/19/24 02:00 Resp 18 02/19/24 02:00 BP 94/57 02/19/24 02:00 Pulse Ox 98 02/19/24 02:00 FiO2 Intake & Output 02/18/24 02/19/24 02/19/24 18:59 06:59 18:59 Output Total 1300 400 Balance -1300 -400 Output: Urine 1300 400 urostomy 700 100 Other: # Bowel Movements 1 - Exam GENERAL DESCRIPTION: Middle-age female lying in bed in no distress RESPIRATORY SYSTEM: Unlabored breathing , decreased breath sounds at bases HEART: S1 S2 regular rate and rhythm , ABDOMEN: Soft , no tenderness EXTREMITIES: No edema feet - Labs CBC & Chem 7: 02/19/24 07:30 02/19/24 07:30 Labs: Abnormal Lab Results - Last 24 Hours (Table) 02/18/24 02/18/24 02/18/24 Range/Units 03:42 03:42 11:43 RBC 2.95 L (4.10-5.20) X 10*6/uL Hgb 7.2 L (12.0-15.0) g/dL Hct 23.6 L (37.2-46.3) % MCH 24.4 L (27.0-32.0) pg MCHC 30.5 L (32.0-37.0) g/dL RDW 21.4 H (11.5-14.5) % Immature Gran # 0.11 H (0.00-0.04) X 10*3/uL Sodium 131 L (135-145) mmol/L BUN 69.5 H (9.0-27.0) mg/dL Est GFR (CKD-EPI) 40 L (>=60) BUN/Creatinine Ratio 46.33 H (12.00-20.00) Ratio Glucose 126 H (70-110) mg/dL POC Glucose (mg/dL) 138 H (70-110) mg/dL Calcium 5.6 A* (8.7-10.3) mg/dL Magnesium 1.4 L (1.5-2.4) mg/dL 02/18/24 02/18/24 02/19/24 Range/Units 17:06 20:09 06:01 RBC (4.10-5.20) X 10*6/uL Hgb (12.0-15.0) g/dL Hct (37.2-46.3) % MCH (27.0-32.0) pg MCHC (32.0-37.0) g/dL RDW (11.5-14.5) % Immature Gran # (0.00-0.04) X 10*3/uL Sodium (135-145) mmol/L BUN (9.0-27.0) mg/dL Est GFR (CKD-EPI) (>=60) BUN/Creatinine Ratio (12.00-20.00) Ratio Glucose (70-110) mg/dL POC Glucose (mg/dL) 120 H 125 H 117 H (70-110) mg/dL Calcium (8.7-10.3) mg/dL Magnesium (1.5-2.4) mg/dL Microbiology - Last 24 Hours (Table) 02/15/24 14:25 Blood Culture - Preliminary Blood 02/14/24 18:16 Anaerobic Culture - Final Coccyx 02/17/24 07:53 Blood Culture - Preliminary Blood 02/14/24 14:32 Blood Culture Gram Stain - Final Blood Blood Culture - Final Methicillin resist S. aureus Strep agalactiae - (group b) Coagulase Negative Staph Molecular ID Assessment and Plan (1) Catheter-associated urinary tract infection Current Visit: Yes Status: Acute Code(s): T83.511A - I/I REACT D/T INDWELLING URETHRAL CATHETER, INIT; N39.0 - URINARY TRACT INFECTION, SITE NOT SPECIFIED SNOMED Code(s): 174955891 (2) Allergy to multiple antibiotics Current Visit: No Status: Acute Code(s): Z88.1 - ALLERGY STATUS TO OTHER ANTIBIOTIC AGENTS SNOMED Code(s): 159152283 (3) Pressure injury of sacral region, stage 4 Current Visit: No Status: Acute Code(s): L89.154 - PRESSURE ULCER OF SACRAL REGION, STAGE 4 SNOMED Code(s): 52741387642675 (4) Sepsis Current Visit: No Status: Acute Code(s): A41.9 - SEPSIS, UNSPECIFIED ORGANISM SNOMED Code(s): 99898903 (5) MRSA bacteremia Current Visit: Yes Status: Acute Code(s): R78.81 - BACTEREMIA; B95.62 - METHICILLIN RESIS STAPH INFCT CAUSING DISEASES CLASSD ELSR SNOMED Code(s): 71552926889020413 Plan: 1patient presented to hospital with sepsis in this patient who did have a hypotension tachycardia likely multifactorial more likely related to the catheter associated tract infection as the patient has significantly positive UA and a suprapubic catheter patient also have a pressure ulcer to the sacral area and the right posterior thigh but no significant slough tissue was noticed 2-patient with multiple antibiotic ALLERGIES that would limit the number of antibiotic safe to use 3--local wound care with the Aquacel silver dressing change every 48 hours 4patient did have a positive blood culture with MRSA, repeat blood cultures so far negative 5patient still has significant cloudy urine repeat UA culture has been requested patient is currently covered with daptomycin and meropenem while waiting for the repeat blood culture and local culture to finalize Dictation was produced using [employer] dictation software. please excuse any grammatical, word or spelling errors.
[2024-02-20 06:10] LABS: Glucose,Whole Blood 151 mg/dL (70-110)
--- NOTE | 2024-02-20 11:31 | P.PN ---
Subjective Progress Note Date: 02/20/24 Principal diagnosis: Hydronephrosis, possible UTI The patient has undergone [place] pouch urinary diversion. This is designed to be a continent reservoir with a catheterizable stoma, but due to leakage she requires an ostomy bag. The reservoir empties incompletely and the patient states that she catheterizes herself 3-4 times daily. Her confusion has resolved, and she will soon resume self-catheterization. However, for now she has simply inserted a catheter and left it in place to maximize drainage of the reservoir. Her urine is clearing and her right sided abdominal pain is significantly improved. Objective - Vital Signs Vital signs: Vital Signs Temp 98.0 F 02/20/24 07:03 Pulse 86 02/20/24 07:03 Resp 18 02/20/24 07:03 BP 106/65 02/20/24 07:03 Pulse Ox 98 02/20/24 07:03 FiO2 Intake & Output 02/19/24 02/20/24 02/20/24 18:59 06:59 18:59 Output Total 1100 Balance -1100 Output: Urine 1100 Other: Voiding Method Indwelling Catheter # Voids 4 # Bowel Movements 1 - Constitutional General appearance: Present: average body habitus, cooperative, no acute distress - Gastrointestinal Gastrointestinal Comment(s): Soft, non-tender, non-distended. A stomal appliance is in place over the right sided stoma. - Psychiatric Psychiatric: Present: A&O x's 3 - Labs CBC & Chem 7: 02/19/24 07:30 02/19/24 07:30 Labs: Abnormal Lab Results - Last 24 Hours (Table) 02/19/24 02/19/24 02/19/24 Range/Units 07:30 11:51 17:10 RBC 3.20 L (4.10-5.20) X 10*6/uL Hgb 7.7 L (12.0-15.0) g/dL Hct 25.7 L (37.2-46.3) % MCH 24.1 L (27.0-32.0) pg MCHC 30.0 L (32.0-37.0) g/dL RDW 21.2 H (11.5-14.5) % MPV 9.4 L (9.5-12.2) FL Immature Gran # 0.09 H (0.00-0.04) X 10*3/uL POC Glucose (mg/dL) 139 H 155 H (70-110) mg/dL 02/19/24 02/20/24 Range/Units 20:45 06:08 RBC (4.10-5.20) X 10*6/uL Hgb (12.0-15.0) g/dL Hct (37.2-46.3) % MCH (27.0-32.0) pg MCHC (32.0-37.0) g/dL RDW (11.5-14.5) % MPV (9.5-12.2) FL Immature Gran # (0.00-0.04) X 10*3/uL POC Glucose (mg/dL) 227 H 151 H (70-110) mg/dL Microbiology - Last 24 Hours (Table) 02/14/24 18:16 Gram Stain - Final Other - Other Wound Culture - Final Acinetobacter angel luis/haemol Escherichia coli Proteus mirabilis Strep agalactiae - (group b) 02/18/24 15:16 Urine Culture - Final Urine,Catheterized 02/17/24 07:53 Blood Culture - Preliminary Blood Assessment and Plan Assessment: Blood cultures show MRSA. Preliminary urine culture showed polymicrobia, the significance of which is unclear. Repeat urine culture was negative. (1) Neurogenic bladder Current Visit: Yes Status: Acute Code(s): N31.9 - NEUROMUSCULAR DYSFUNCTION OF BLADDER, UNSPECIFIED SNOMED Code(s): 972892731 (2) Unspecified hydronephrosis Current Visit: Yes Status: Acute Code(s): N13.30 - UNSPECIFIED HYDRONEPHROSIS SNOMED Code(s): 68009620 Plan: The serum creatinine level has decreased to 1.1 and will be rechecked today. The patient has been advised to leave the catheter in place until she decides to resume self-catherization 3-4 times daily. I have also suggested she consider conversion of her [place] Pouch to an ileal conduit.
[2024-02-20 11:41] LABS: Glucose,Whole Blood 127 mg/dL (70-110)
--- NOTE | 2024-02-20 14:01 | P.PN ---
Subjective Progress Note Date: 02/19/24 This is a pleasant 58 year old female with medical history of spina bifida, asthma, diabetes mellitus , GERD, sleep apnea, chiari malformation. Patient comes to the hospital from the half-way with concern for altered mentation and low blood pressure down into the 70s systolic. Patient was admitted to the ICU with consults placed to pulmonary felt tipping machine tender and ID. Patient is bedbound at baseline; does have known sacral pressure injury as well as pressure injury to the left thigh. Patient was given fluid bolus and started on levophed pressor support. Patient has been started on IV meropenem with concern for UTI and does have history of ESBL. Chest x-ray reveals mild pulmonary vascular congestion. EKG reveals sinus tachycardia heart rate of [address] or T wave changes. Blood work reveals a white blood cell count of 8.1, hemoglobin 6.8, platelet count of 488, potassium of 5.6, BUN of 108, creatinine of 2.03, lactic acid of 0.7, troponin level is negative, urinalysis is significantly abnormal with a turbid appearance, large leukocyte Estrace, greater than 182 WBCs and few bacteria. Patient is not complaining of any chest pain or shortness of breath she is currently awake and alert and less confused her family is at the bedside. Her main complaint today is the pain she is having from the sacral wound. Patient is maintained on MS contin outpatient will need to be held secondary to the renal dysfunction. Blood cultures today have come back showing gram-positive cocci in chains as well as gram-positive cocci in clusters, Staphylococcus species, Streptococcus species, strep collected group B, MRSA are showing as positive. Preliminary wound culture of the sacral ulcer reveal few gram positive bacilli, few gram positive cocci, and few gram negative bacilli. Patient is not on combination of IV daptomycin, IV meropenem. 02/16/2024 Is evaluated in follow-up on the medical floor. She is more awake alert. Patient is off the pressor support and her blood pressure is maintaining in 120s to 130s systolic. Her creatinine has improved significantly and down to 1.15. White blood cell count is 4.0, hemoglobin 7.1, potassium 3.3 patient continues on a combination of IV daptomycin and IV meropenem. Her urine culture is negative, found to have MRSA bacteremia and this is likely from the sacral decubitus wound. Patient was seen in consultation by wound care and recommended for a wound VAC to the sacral decubitus ulcer. 02/17/2024 Evaluated in follow-up in the medical floor. She is concerned with not being able to straight cath her urostomy and worried about the backflow. There is significant sediment in the urine is a cloudy color. Her urine culture was found to be negative. We are waiting for repeat blood cultures so far pulmonary is negative she remains on IV daptomycin and IV meropenem. Wound VAC in place to the sacral ulcer. Once patient is medically ready she will discharge back to [facility]. Work today reveals a white blood cell count of 6.1, hemoglobin 7.5, sodium 133, BUN 78, creatinine 1.14, calcium 5.5. 02/18/2024 Patient evaluated today on the medical floor. She was strait cathed a few times through the urostomy and the urine is cloudy and turbid. We will send a urine culture from the stoma. Patient continues with wound VAC on the sacral ulcer having significant pain. And the MS Contin has been held for now as her blood pressure has been low. Renal function is slowly improving. Hgb 7.2, Sodium 131, BUN 69.5, creatinine 1.5, glucose 130, calcium 5.6, magnesium 1.4. Blood pressure 92/60. Blood culture showing MRA, Group B strep, Coagulase negative staph. Repeat blood culture pending. 02/19/2024 Patient is resting in the bed. Awake and alert. No acute distress. Currently on room air. Right nephrostomy bag is being changed today. Otherwise blood cultures growing MRSA and strep agalactiae and wound cultures growing Acinetobacter E. coli and Proteus. Patient is being continued on antibiotics meropenem and daptomycin. Patient is on IV hydration with normal saline at 100 cc/h. Laboratory data showed sodium 128 potassium 3.9 chloride 102 bicarb is 17 BUN 65 and creatinine 1.1, hemoglobin 7.7 and platelets 276 and WBC 7.65. Calcium 6.2. REVIEW OF SYSTEMS: CONSTITUTIONAL: No fever, no malaise. Reports fatigue. HEENT: No recent visual problems or hearing problems. Denied any sore throat. CARDIOVASCULAR: No chest pain, orthopnea, PND, no palpitations, no syncope. PULMONARY: No shortness of breath, no cough, no hemoptysis. GASTROINTESTINAL: No diarrhea, no nausea, no vomiting, no abdominal pain. NEUROLOGICAL: No headaches, no weakness, no numbness. PHYSICAL EXAMINATION: GENERAL: The patient is alert and oriented x2-3, not in any acute distress. Well developed, well nourished. HEENT: Pupils are round and equally reacting to light. EOMI. No scleral icterus. No conjunctival pallor. Normocephalic, atraumatic. No pharyngeal erythema. No thyromegaly. CARDIOVASCULAR: S1 and S2 present. No murmurs, rubs, or gallops. PULMONARY: Chest is clear to auscultation, no wheezing or crackles. ABDOMEN: Soft, nontender, nondistended, normoactive bowel sounds. No palpable organomegaly. MUSCULOSKELETAL: No joint swelling or deformity. EXTREMITIES: No cyanosis, clubbing, Mild pedal edema. NEUROLOGICAL: Gross neurological examination did not reveal any focal deficits. Diffuse weakness. SKIN: Sacral pressure injury. Assessment Acute urinary tract infection; likely catheter associated; with sepsis and septic shock, POA. Patient was on pressor support. MRSA/Strep Bacteremia Sacral pressure injury, left thigh pressure injury POA stage III to both Acute kidney injury acute tubular necrosis hemodynamic instability from infection. Altered mental status acute metabolic and toxic encephalopathy. Improved Neurogenic bladder and urostomy stoma History of Spina Bifidi and chiari malformation patient is bedbound at baseline Diabetes Mellitus type 2 Gastroesophageal reflux disease Hx of asthma with no acute exacerbation Hx of hydrocephalus and VA shunt Chronic kidney disease Anemia of chronic disease GI prophylaxis DVT prophylaxis Do Not Resuscitate/Do Not Intubate Plan Continue IV antibiotics with IV meropenem/IV daptomycin. Blood cultures showed MRSA and strep agalactiae. Wound cultures growing Acinetobacter and E. coli and Proteus. Wound VAC to be applied to the sacral wound. Continue with wound care. Change fluid to normal saline at 100 mls.hr Need to hold the MS Contin due to renal dysfunction Strait cath stoma 3/4 times per day and also send a urine culture from the [facility]. Urology and pulmonary is on board. Wound care consult Repeat labs in the AM. Follow-up sodium level. Objective - Vital Signs Vital signs: Vital Signs Temp 98.6 F 02/19/24 07:12 Pulse 88 02/19/24 07:12 Resp 18 08/31/24 07:12 BP 123/76 02/19/24 07:12 Pulse Ox 98 02/19/24 07:12 FiO2 Intake & Output 02/18/24 02/19/24 02/19/24 18:59 06:59 18:59 Output Total 1300 400 Balance -1300 -400 Output: Urine 1300 400 urostomy 700 100 Other: # Bowel Movements 1 - Labs CBC & Chem 7: 02/19/24 07:30 02/19/24 07:30 Labs: Abnormal Lab Results - Last 24 Hours (Table) 02/18/24 02/18/24 02/19/24 Range/Units 17:06 20:09 06:01 RBC (4.10-5.20) X 10*6/uL Hgb (12.0-15.0) g/dL Hct (37.2-46.3) % MCH (27.0-32.0) pg MCHC (32.0-37.0) g/dL RDW (11.5-14.5) % MPV (9.5-12.2) FL Immature Gran # (0.00-0.04) X 10*3/uL Sodium (137-145) mmol/L Carbon Dioxide (22-30) mmol/L BUN (7-17) mg/dL Creatinine (0.52-1.04) mg/dL POC Glucose (mg/dL) 120 H 125 H 117 H (70-110) mg/dL Calcium (8.4-10.2) mg/dL 02/19/24 02/19/24 02/19/24 Range/Units 07:30 07:30 11:51 RBC 3.20 L (4.10-5.20) X 10*6/uL Hgb 7.7 L (12.0-15.0) g/dL Hct 25.7 L (37.2-46.3) % MCH 24.1 L (27.0-32.0) pg MCHC 30.0 L (32.0-37.0) g/dL RDW 21.2 H (11.5-14.5) % MPV 9.4 L (9.5-12.2) FL Immature Gran # 0.09 H (0.00-0.04) X 10*3/uL Sodium 128 L (137-145) mmol/L Carbon Dioxide 17 L (22-30) mmol/L BUN 65 H (7-17) mg/dL Creatinine 1.10 H (0.52-1.04) mg/dL POC Glucose (mg/dL) 139 H (70-110) mg/dL Calcium 6.2 L* (8.4-10.2) mg/dL Microbiology - Last 24 Hours (Table) 02/15/24 14:25 Blood Culture - Preliminary Blood 02/14/24 18:16 Anaerobic Culture - Final Coccyx 02/17/24 07:53 Blood Culture - Preliminary Blood 02/14/24 14:32 Blood Culture Gram Stain - Final Blood Blood Culture - Final Methicillin resist S. aureus Strep agalactiae - (group b) Coagulase Negative Staph Molecular ID
--- NOTE | 2024-02-20 15:51 | P.PN ---
Subjective Progress Note Date: 02/20/24 Principal diagnosis: Reason for follow-up sepsis UTI and pressure ulcer Patient is a 58-year-old female with a past medical history significant for diabetes mellitus reflux asthma spina bifida, this patient who is a bedbound and did have a sacral pressure ulcer with the previous episode of osteomyelitis patient has been brought into the [facility] from the local [facility] after the patient was found to be lethargic mental status changes noticed to be septic require admission to the ICU blood cultures came back positive with MRSA. On today's visit that is 02/20/2024,the patient remains to be afebrile, patient is on room air not requiring supplemental oxygen and denies any shortness of breath no chest pain or cough.Patient denies having any nausea or vomiting, no abdominal pain and no diarrhea has been reported. Patient creatinine 1.10, wound culture with drug-resistant Acinetobacter E. coli Proteus stepped blood culture with MRSA repeat blood culture for negative Objective - Vital Signs Vital signs: Vital Signs Temp 98.0 F 02/20/24 07:03 Pulse 86 02/20/24 07:03 Resp 18 02/20/24 07:03 BP 106/65 02/20/24 07:03 Pulse Ox 98 02/20/24 07:03 FiO2 Intake & Output 02/19/24 02/20/24 02/20/24 18:59 06:59 18:59 Output Total 1100 Balance -1100 Output: Urine 1100 Other: Voiding Method Indwelling Catheter # Voids 4 # Bowel Movements 1 - Exam GENERAL DESCRIPTION: Middle-age female lying in bed in no distress RESPIRATORY SYSTEM: Unlabored breathing , decreased breath sounds at bases HEART: S1 S2 regular rate and rhythm , ABDOMEN: Soft , no tenderness EXTREMITIES: No edema feet - Labs CBC & Chem 7: 02/19/24 07:30 02/19/24 07:30 Labs: Abnormal Lab Results - Last 24 Hours (Table) 02/19/24 02/19/24 02/20/24 Range/Units 17:10 20:45 06:08 POC Glucose (mg/dL) 155 H 227 H 151 H (70-110) mg/dL 02/20/24 Range/Units 11:40 POC Glucose (mg/dL) 127 H (70-110) mg/dL Microbiology - Last 24 Hours (Table) 02/14/24 18:16 Gram Stain - Final Other - Other Wound Culture - Final Acinetobacter angel luis/haemol Escherichia coli Proteus mirabilis Strep agalactiae - (group b) 02/18/24 15:16 Urine Culture - Final Urine,Catheterized 02/17/24 07:53 Blood Culture - Preliminary Blood Assessment and Plan (1) Catheter-associated urinary tract infection Current Visit: Yes Status: Acute Code(s): T83.511A - I/I REACT D/T INDWELLING URETHRAL CATHETER, INIT; N39.0 - URINARY TRACT INFECTION, SITE NOT SPECIFIED SNOMED Code(s): 409085736 (2) Allergy to multiple antibiotics Current Visit: No Status: Acute Code(s): Z88.1 - ALLERGY STATUS TO OTHER ANTIBIOTIC AGENTS SNOMED Code(s): 688959255 (3) Pressure injury of sacral region, stage 4 Current Visit: No Status: Acute Code(s): L89.154 - PRESSURE ULCER OF SACRAL REGION, STAGE 4 SNOMED Code(s): 76314256396362 (4) Sepsis Current Visit: No Status: Acute Code(s): A41.9 - SEPSIS, UNSPECIFIED ORGANISM SNOMED Code(s): 44285693 (5) MRSA bacteremia Current Visit: Yes Status: Acute Code(s): R78.81 - BACTEREMIA; B95.62 - METHICILLIN RESIS STAPH INFCT CAUSING DISEASES CLASSD ELSWHR SNOMED Code(s): 27273892583790756 Plan: 1patient presented to hospital with sepsis in this patient who did have a hypotension tachycardia likely multifactorial more likely related to the catheter associated tract infection as the patient has significantly positive UA and a suprapubic catheter patient also have a pressure ulcer to the sacral area and the right posterior thigh but no significant slough tissue was noticed 2-patient with multiple antibiotic ALLERGIES that would limit the number of antibiotic safe to use 3--local wound care with the Aquacel silver dressing change every 48 hours 4patient did have a positive blood culture with MRSA, repeat blood cultures so far negative local wound culture did grew drug-resistant Acinetobacter, E. coli Proteus and strep 5patient still has significant cloudy urine repeat UA culture has been requested which is currently pending 6we will continue with the daptomycin for the MRSA bacteremia discontinue meropenem start the patient on Rocephin to cover for the pathogen recovered from her wound Dictation was produced using dragon dictation software. please excuse any grammatical, word or spelling errors. Time with Patient: Less than 30
[2024-02-20 16:51] LABS: Glucose,Whole Blood 107 mg/dL (70-110)
[2024-02-20 21:44] LABS: Glucose,Whole Blood 135 mg/dL (70-110)
[2024-02-21 05:27] LABS: African American GFR (CKD) >90 (>60 ml/min/1.73 sqM); Anion Gap 4 mmol/L; Blood Urea Nitrogen 41 mg/dL (7-17); C Reactive Protein 5.9 mg/dL (<1.0); Calcium 6.5 mg/dL (8.4-10.2); Carbon Dioxide 18 mmol/L (22-30); Chloride 110 mmol/L (98-107); Glucose 119 mg/dL (74-99); Non-African American GFR(CKD) >90 (>60 ml/min/1.73 sqM); Potassium 4.2 mmol/L (3.5-5.1); Sodium 132 mmol/L (137-145)
[2024-02-21 05:33] LABS: Anisocytosis Moderate; Basophils % (A) 0 %; Eosinophils # (A) 0.1 k/uL (0-0.7); Eosinophils % (A) 1 %; HCT 24.2 % (34.0-46.0); HGB 7.6 gm/dL (11.4-16.0); Hypochromasia Marked; Lymphocytes # (A) 1.8 k/uL (1.0-4.8); Lymphocytes % (A) 29 %; MCH 25.1 pg (25.0-35.0); MCHC 31.2 g/dL (31.0-37.0); MCV 80.6 fL (80.0-100.0); Mean Platelet Volume 8.2; Microcytosis Slight; Monocytes # (A) 0.4 k/uL (0-1.0); Monocytes % (A) 6 %; Neutrophils # (A) 3.9 k/uL (1.3-7.7); Neutrophils % (A) 61 %; Platelet Count 279 k/uL (150-450); Poikilocytosis Slight; RBC 3.01 m/uL (3.80-5.40); RDW 20.9 % (11.5-15.5); WBC 6.4 k/uL (3.8-10.6)
[2024-02-21 06:40] LABS: Glucose,Whole Blood 116 mg/dL (70-110)
--- NOTE | 2024-02-21 11:05 | P.PN ---
Subjective Progress Note Date: 02/21/24 No acute overnight event, urine is clear, currently does have a Reyna catheter in good catheterizable channel. Creatinine is down to 0.69 Objective - Vital Signs Vital signs: Vital Signs Temp 98.7 F 02/21/24 07:20 Pulse 96 02/21/24 07:20 Resp 16 02/21/24 07:20 BP 113/73 02/21/24 07:20 Pulse Ox 95 02/21/24 07:20 FiO2 Intake & Output 02/20/24 02/21/24 02/21/24 18:59 06:59 18:59 Intake Total 850 Output Total 2000 Balance 850 -2000 Intake: Intake, IV Titration 850 Amount Sodium Chloride 0.9% 1, 800 000 ml @ 100 mls/hr IV . Q10H ALLIE Rx#:[id number] cefTRIAXone 2 gm In 50 Sodium Chloride 0.9% 50 ml @ 100 mls/hr IVPB Q24H ALLIE Rx#:[id number] Output: Urine 2000 Other: Voiding Method Ileal Conduit (Right) Ileal Conduit (Right) - Constitutional General appearance: Present: no acute distress - Gastrointestinal General gastrointestinal: Present: soft. Absent: distended, tenderness - Labs CBC & Chem 7: 02/21/24 04:07 02/21/24 04:07 Labs: Abnormal Lab Results - Last 24 Hours (Table) 02/20/24 02/20/24 02/21/24 Range/Units 11:40 21:42 04:07 RBC 3.01 L (3.80-5.40) m/uL Hgb 7.6 L (11.4-16.0) gm/dL Hct 24.2 L (34.0-46.0) % RDW 20.9 H (11.5-15.5) % Sodium (137-145) mmol/L Chloride (98-107) mmol/L Carbon Dioxide (22-30) mmol/L BUN (7-17) mg/dL Glucose (74-99) mg/dL POC Glucose (mg/dL) 127 H 135 H (70-110) mg/dL Calcium (8.4-10.2) mg/dL C-Reactive Protein (<1.0) mg/dL 02/21/24 02/21/24 Range/Units 04:07 06:34 RBC (3.80-5.40) m/uL Hgb (11.4-16.0) gm/dL Hct (34.0-46.0) % RDW (11.5-15.5) % Sodium 132 L (137-145) mmol/L Chloride 110 H (98-107) mmol/L Carbon Dioxide 18 L (22-30) mmol/L BUN 41 H (7-17) mg/dL Glucose 119 H (74-99) mg/dL POC Glucose (mg/dL) 116 H (70-110) mg/dL Calcium 6.5 L (8.4-10.2) mg/dL C-Reactive Protein 5.9 H (<1.0) mg/dL Microbiology - Last 24 Hours (Table) 02/15/24 14:25 Blood Culture - Final Blood 02/18/24 15:16 Urine Culture - Final Urine,Catheterized Amira albicans 02/17/24 07:53 Blood Culture - Preliminary Blood Assessment and Plan Assessment: Reyna catheter can be removed once patient feels comfortable with resuming intermittent catheterization. From urology standpoint she is okay for discharge
[2024-02-21 11:24] LABS: Glucose,Whole Blood 149 mg/dL (70-110)
[2024-02-21 17:04] LABS: Glucose,Whole Blood 222 mg/dL (70-110)
[2024-02-21 17:22] LABS: BUN/Creat Ratio 50.67 Ratio (12.00-20.00); Blood Urea Nitrogen 45.6 mg/dL (9.0-27.0); Calcium 6.3 mg/dL (8.7-10.3); Carbon Dioxide 14.7 mmol/L (21.6-31.8); Chloride 103 mmol/L (96-109); Glucose 123 mg/dL (70-110); Potassium 3.8 mmol/L (3.5-5.5); Sodium 134 mmol/L (135-145)
[2024-02-21 21:31] LABS: Glucose,Whole Blood 137 mg/dL (70-110)
--- NOTE | 2024-02-21 22:39 | P.PN ---
Subjective Progress Note Date: 02/21/24 Principal diagnosis: Reason for follow-up sepsis UTI and pressure ulcer Patient is a 58-year-old female with a past medical history significant for diabetes mellitus reflux asthma spina bifida, this patient who is a bedbound and did have a sacral pressure ulcer with the previous episode of osteomyelitis patient has been brought into the hospital from the local [place] [facility] after the patient was found to be lethargic mental status changes noticed to be septic require admission to the ICU blood cultures came back positive with MRSA. On today's visit that is 02/21/2024, the patient continues to be afebrile, the patient is on room air and breathing comfortably, the Pt denies having any chest pain or cough, the patient denies having any abdominal pain no vomiting or any diarrhea has been reported by the nursing staff. Patient white count 6.4, creatinine 0.69 Objective - Vital Signs Vital signs: Vital Signs Temp 98.7 F 02/21/24 07:20 Pulse 96 02/21/24 07:20 Resp 16 02/21/24 07:20 BP 113/73 02/21/24 07:20 Pulse Ox 95 02/21/24 07:20 FiO2 Intake & Output 02/20/24 02/21/24 02/21/24 18:59 06:59 18:59 Intake Total 850 Output Total 2000 Balance 850 -2000 Intake: Intake, IV Titration 850 Amount Sodium Chloride 0.9% 1, 800 000 ml @ 100 mls/hr IV . Q10H ALLIE Rx#:[id number] cefTRIAXone 2 gm In 50 Sodium Chloride 0.9% 50 ml @ 100 mls/hr IVPB Q24H ALLIE Rx#:[id number] Output: Urine 2000 Other: Voiding Method Ileal Conduit (Right) Ileal Conduit (Right) - Exam GENERAL DESCRIPTION: Middle-age female lying in bed in no distress RESPIRATORY SYSTEM: Unlabored breathing , decreased breath sounds at bases HEART: S1 S2 regular rate and rhythm , ABDOMEN: Soft , no tenderness EXTREMITIES: No edema feet - Labs CBC & Chem 7: 02/21/24 04:07 02/21/24 04:07 Labs: Abnormal Lab Results - Last 24 Hours (Table) 02/20/24 02/21/24 02/21/24 Range/Units 21:42 04:07 04:07 RBC 3.01 L (3.80-5.40) m/uL Hgb 7.6 L (11.4-16.0) gm/dL Hct 24.2 L (34.0-46.0) % RDW 20.9 H (11.5-15.5) % Sodium 132 L (137-145) mmol/L Chloride 110 H (98-107) mmol/L Carbon Dioxide 18 L (22-30) mmol/L BUN 41 H (7-17) mg/dL Glucose 119 H (74-99) mg/dL POC Glucose (mg/dL) 135 H (70-110) mg/dL Calcium 6.5 L (8.4-10.2) mg/dL C-Reactive Protein 5.9 H (<1.0) mg/dL 02/21/24 02/21/24 Range/Units 06:34 11:22 RBC (3.80-5.40) m/uL Hgb (11.4-16.0) gm/dL Hct (34.0-46.0) % RDW (11.5-15.5) % Sodium (137-145) mmol/L Chloride (98-107) mmol/L Carbon Dioxide (22-30) mmol/L BUN (7-17) mg/dL Glucose (74-99) mg/dL POC Glucose (mg/dL) 116 H 149 H (70-110) mg/dL Calcium (8.4-10.2) mg/dL C-Reactive Protein (<1.0) mg/dL Microbiology - Last 24 Hours (Table) 02/15/24 14:25 Blood Culture - Final Blood 02/18/24 15:16 Urine Culture - Final Urine,Catheterized Amira albicans 02/17/24 07:53 Blood Culture - Preliminary Blood Assessment and Plan (1) Catheter-associated urinary tract infection Current Visit: Yes Status: Acute Code(s): T83.511A - I/I REACT D/T INDWELLING URETHRAL CATHETER, INIT; N39.0 - URINARY TRACT INFECTION, SITE NOT SPECIFIED SNOMED Code(s): 811142436 (2) Allergy to multiple antibiotics Current Visit: No Status: Acute Code(s): Z88.1 - ALLERGY STATUS TO OTHER ANTIBIOTIC AGENTS SNOMED Code(s): 081429743 (3) Pressure injury of sacral region, stage 4 Current Visit: No Status: Acute Code(s): L89.154 - PRESSURE ULCER OF SACRAL REGION, STAGE 4 SNOMED Code(s): 87031138876174 (4) Sepsis Current Visit: No Status: Acute Code(s): A41.9 - SEPSIS, UNSPECIFIED ORGANISM SNOMED Code(s): 70917928 (5) MRSA bacteremia Current Visit: Yes Status: Acute Code(s): R78.81 - BACTEREMIA; B95.62 - METHICILLIN RESIS STAPH INFCT CAUSING DISEASES CLASSD ELSWHR SNOMED Code(s): 92204614666913032 Plan: 1patient presented to hospital with sepsis in this patient who did have a hypotension tachycardia likely multifactorial more likely related to the catheter associated tract infection as the patient has significantly positive UA and a suprapubic catheter patient also have a pressure ulcer to the sacral area and the right posterior thigh but no significant slough tissue was noticed 2-patient with multiple antibiotic ALLERGIES that would limit the number of antibiotic safe to use 3--local wound care with the Aquacel silver dressing change every 48 hours 4patient did have a positive blood culture with MRSA, repeat blood cultures so far negative local wound culture did grew drug-resistant Acinetobacter, E. coli Proteus and strep 5patient still has significant cloudy urine repeat UA culture has been requested which is currently pending 6patient is currently being treated with the daptomycin for the MRSA bacteremia along with Rocephin to cover for the pathogen recovered from her wound, will need a PICC line for outpatient IV antibiotics Dictation was produced using [employer] dictation software. please excuse any grammatical, word or spelling errors. Time with Patient: Less than 30
[2024-02-21] MEDS: CALCIUM CARBONATE 500 MG CHEWABLE PO SCH (23:51)
--- NOTE | 2024-02-22 00:24 | P.PN ---
Subjective Progress Note Date: 02/20/24 This is a pleasant 58 year old female with medical history of spina bifida, asthma, diabetes mellitus , GERD, sleep apnea, chiari malformation. Patient comes to the hospital [place] the [place] [facility] with concern for altered mentation and low blood pressure down into the 70s systolic. Patient was admitted to the ICU with consults placed to pulmonary water quality control engineer and ID. Patient is bedbound at baseline; does have known sacral pressure injury as well as pressure injury to the left thigh. Patient was given fluid bolus and started on levophed pressor support. Patient has been started on IV meropenem with concern for UTI and does have history of ESBL. Chest x-ray reveals mild pulmonary vascular congestion. EKG reveals sinus tachycardia heart rate of [address] or T wave changes. Blood work reveals a white blood cell count of 8.1, hemoglobin 6.8, platelet count of 488, potassium of 5.6, BUN of 108, creatinine of 2.03, lactic acid of 0.7, troponin level is negative, urinalysis is significantly abnormal with a turbid appearance, large leukocyte Estrace, greater than 182 WBCs and few bacteria. Patient is not complaining of any chest pain or shortness of breath she is currently awake and alert and less confused her family is at the bedside. Her main complaint today is the pain she is having from the sacral wound. Patient is maintained on MS contin outpatient will need to be held secondary to the renal dysfunction. Blood cultures today have come back showing gram-positive cocci in chains as well as gram-positive cocci in clusters, Staphylococcus species, Streptococcus species, strep collected group B, MRSA are showing as positive. Preliminary wound culture of the sacral ulcer reveal few gram positive bacilli, few gram positive cocci, and few gram negative bacilli. Patient is not on combination of IV daptomycin, IV meropenem. 02/16/2024 Is evaluated in follow-up on the medical floor. She is more awake alert. Patient is off the pressor support and her blood pressure is maintaining in 120s to 130s systolic. Her creatinine has improved significantly and down to 1.15. White blood cell count is 4.0, hemoglobin 7.1, potassium 3.3 patient continues on a combination of IV daptomycin and IV meropenem. Her urine culture is negative, found to have MRSA bacteremia and this is likely from the sacral decubitus wound. Patient was seen in consultation by wound care and recommended for a wound VAC to the sacral decubitus ulcer. 02/17/2024 Evaluated in follow-up in the medical floor. She is concerned with not being able to straight cath her urostomy and worried about the backflow. There is significant sediment in the urine is a cloudy color. Her urine culture was found to be negative. We are waiting for repeat blood cultures so far pulmonary is negative she remains on IV daptomycin and IV meropenem. Wound VAC in place to the sacral ulcer. Once patient is medically ready she will discharge back to [facility]. Work today reveals a white blood cell count of 6.1, hemoglobin 7.5, sodium 133, BUN 78, creatinine 1.14, calcium 5.5. 02/18/2024 Patient evaluated today on the medical floor. She was strait cathed a few times through the urostomy and the urine is cloudy and turbid. We will send a urine culture from the stoma. Patient continues with wound VAC on the sacral ulcer having significant pain. And the MS Contin has been held for now as her blood pressure has been low. Renal function is slowly improving. Hgb 7.2, Sodium 131, BUN 69.5, creatinine 1.5, glucose 130, calcium 5.6, magnesium 1.4. Blood pressure 92/60. Blood culture showing MRA, Group B strep, Coagulase negative staph. Repeat blood culture pending. 02/19/2024 Patient is resting in the bed. Awake and alert. No acute distress. Currently on room air. Right nephrostomy bag is being changed today. Otherwise blood cultures growing MRSA and strep agalactiae and wound cultures growing Acinetobacter E. coli and Proteus. Patient is being continued on antibiotics meropenem and daptomycin. Patient is on IV hydration with normal saline at 100 cc/h. Laboratory data showed sodium 128 potassium 3.9 chloride 102 bicarb is 17 BUN 65 and creatinine 1.1, hemoglobin 7.7 and platelets 276 and WBC 7.65. Calcium 6.2. 02/20/2024 Patient is currently resting in the bed. Awake alert oriented x 3. Not requiring any oxygen supplementation. No complaints of chest pain or shortness of breath. Nephrostomy tube has good urine output. Laboratory data reviewed. Sodium 134 potassium 3.8 chloride 103 bicarb is 14.7 BUN 45.6 and creatinine 0.9 and blood sugar 123 and calcium 6.3. Patient currently on on antibiotics in the form of ceftriaxone and daptomycin. ID and urology is on board. REVIEW OF SYSTEMS: CONSTITUTIONAL: No fever, no malaise. Reports fatigue. HEENT: No recent visual problems or hearing problems. Denied any sore throat. CARDIOVASCULAR: No chest pain, orthopnea, PND, no palpitations, no syncope. PULMONARY: No shortness of breath, no cough, no hemoptysis. GASTROINTESTINAL: No diarrhea, no nausea, no vomiting, no abdominal pain. NEUROLOGICAL: No headaches, no weakness, no numbness. PHYSICAL EXAMINATION: GENERAL: The patient is alert and oriented x2-3, not in any acute distress. Well developed, well nourished. HEENT: Pupils are round and equally reacting to light. EOMI. No scleral icterus. No conjunctival pallor. Normocephalic, atraumatic. No pharyngeal erythema. No thyromegaly. CARDIOVASCULAR: S1 and S2 present. No murmurs, rubs, or gallops. PULMONARY: Chest is clear to auscultation, no wheezing or crackles. ABDOMEN: Soft, nontender, nondistended, normoactive bowel sounds. No palpable organomegaly. MUSCULOSKELETAL: No joint swelling or deformity. EXTREMITIES: No cyanosis, clubbing, Mild pedal edema. NEUROLOGICAL: Gross neurological examination did not reveal any focal deficits. Diffuse weakness. SKIN: Sacral pressure injury. Assessment Acute urinary tract infection; likely catheter associated; with sepsis and septic shock, POA. Patient was on pressor support. MRSA/Strep Bacteremia Sacral pressure injury, left thigh pressure injury POA stage III to both Acute kidney injury acute tubular necrosis hemodynamic instability from inf ection. Altered mental status acute metabolic and toxic encephalopathy. Improved Neurogenic bladder and urostomy stoma History of Spina Bifidi and chiari malformation patient is bedbound at baseline Diabetes Mellitus type 2 Gastroesophageal reflux disease Hx of asthma with no acute exacerbation Hx of hydrocephalus and VA shunt Chronic kidney disease Anemia of chronic disease GI prophylaxis DVT prophylaxis Do Not Resuscitate/Do Not Intubate Plan Continue IV antibiotics with IV meropenem/IV daptomycin. Meropenem changed to ceftriaxone. Blood cultures showed MRSA and strep agalactiae. Wound cultures growing Acinetobacter and E. coli and Proteus. Wound VAC to be applied to the sacral wound. Continue with wound care. Change fluid to normal saline at 100 mls.hr Need to hold the MS Contin due to renal dysfunction Strait cath stoma 3/4 times per day and also send a urine culture from the stoma. Urology and pulmonary is on board. Wound care consult Repeat labs in the AM. Follow-up sodium level. Objective - Vital Signs Vital signs: Vital Signs Temp 98.0 F 02/20/24 07:03 Pulse 86 02/20/24 07:03 Resp 18 02/20/24 07:03 BP 106/65 02/20/24 07:03 Pulse Ox 98 02/20/24 07:03 FiO2 Intake & Output 02/19/24 02/20/24 02/20/24 18:59 06:59 18:59 Output Total 1100 Balance -1100 Output: Urine 1100 Other: Voiding Method Indwelling Catheter # Voids 4 # Bowel Movements 1 - Labs CBC & Chem 7: 02/21/24 04:07 02/21/24 04:07 Labs: Abnormal Lab Results - Last 24 Hours (Table) 02/19/24 02/19/24 02/20/24 Range/Units 17:10 20:45 06:08 POC Glucose (mg/dL) 155 H 227 H 151 H (70-110) mg/dL 02/20/24 Range/Units 11:40 POC Glucose (mg/dL) 127 H (70-110) mg/dL Microbiology - Last 24 Hours (Table) 02/14/24 18:16 Gram Stain - Final Other - Other Wound Culture - Final Acinetobacter angel luis/haemol Escherichia coli Proteus mirabilis Strep agalactiae - (group b) 02/18/24 15:16 Urine Culture - Final Urine,Catheterized 02/17/24 07:53 Blood Culture - Preliminary Blood
--- NOTE | 2024-02-22 00:25 | P.PN ---
Subjective Progress Note Date: 02/21/24 This is a pleasant 58 year old female with medical history of spina bifida, asthma, diabetes mellitus , GERD, sleep apnea, chiari malformation. Patient comes to the hospital from the skilled nursing with concern for altered mentation and low blood pressure down into the 70s systolic. Patient was admitted to the ICU with consults placed to pulmonary technical testing engineer and ID. Patient is bedbound at baseline; does have known sacral pressure injury as well as pressure injury to the left thigh. Patient was given fluid bolus and started on levophed pressor support. Patient has been started on IV meropenem with concern for UTI and does have history of ESBL. Chest x-ray reveals mild pulmonary vascular congestion. EKG reveals sinus tachycardia heart rate of [address] or T wave changes. Blood work reveals a white blood cell count of 8.1, hemoglobin 6.8, platelet count of 488, potassium of 5.6, BUN of 108, creatinine of 2.03, lactic acid of 0.7, troponin level is negative, urinalysis is significantly abnormal with a turbid appearance, large leukocyte Estrace, greater than 182 WBCs and few bacteria. Patient is not complaining of any chest pain or shortness of breath she is currently awake and alert and less confused her family is at the bedside. Her main complaint today is the pain she is having from the sacral wound. Patient is maintained on MS contin outpatient will need to be held secondary to the renal dysfunction. Blood cultures today have come back showing gram-positive cocci in chains as well as gram-positive cocci in clusters, Staphylococcus species, Streptococcus species, strep collected group B, MRSA are showing as positive. Preliminary wound culture of the sacral ulcer reveal few gram positive bacilli, few gram positive cocci, and few gram negative bacilli. Patient is not on combination of IV daptomycin, IV meropenem. 02/16/2024 Is evaluated in follow-up on the medical floor. She is more awake alert. Patient is off the pressor support and her blood pressure is maintaining in 120s to 130s systolic. Her creatinine has improved significantly and down to 1.15. White blood cell count is 4.0, hemoglobin 7.1, potassium 3.3 patient continues on a combination of IV daptomycin and IV meropenem. Her urine culture is negative, found to have MRSA bacteremia and this is likely from the sacral decubitus wound. Patient was seen in consultation by wound care and recommended for a wound VAC to the sacral decubitus ulcer. 02/17/2024 Evaluated in follow-up in the medical floor. She is concerned with not being able to straight cath her urostomy and worried about the backflow. There is significant sediment in the urine is a cloudy color. Her urine culture was found to be negative. We are waiting for repeat blood cultures so far pulmonary is negative she remains on IV daptomycin and IV meropenem. Wound VAC in place to the sacral ulcer. Once patient is medically ready she will discharge back to [facility]. Work today reveals a white blood cell count of 6.1, hemoglobin 7.5, sodium 133, BUN 78, creatinine 1.14, calcium 5.5. 02/18/2024 Patient evaluated today on the medical floor. She was strait cathed a few times through the urostomy and the urine is cloudy and turbid. We will send a urine culture from the stoma. Patient continues with wound VAC on the sacral ulcer having significant pain. And the MS Contin has been held for now as her blood pressure has been low. Renal function is slowly improving. Hgb 7.2, Sodium 131, BUN 69.5, creatinine 1.5, glucose 130, calcium 5.6, magnesium 1.4. Blood pressure 92/60. Blood culture showing MRA, Group B strep, Coagulase negative staph. Repeat blood culture pending. 02/19/2024 Patient is resting in the bed. Awake and alert. No acute distress. Currently on room air. Right nephrostomy bag is being changed today. Otherwise blood cultures growing MRSA and strep agalactiae and wound cultures growing Acinetobacter E. coli and Proteus. Patient is being continued on antibiotics meropenem and daptomycin. Patient is on IV hydration with normal saline at 100 cc/h. Laboratory data showed sodium 128 potassium 3.9 chloride 102 bicarb is 17 BUN 65 and creatinine 1.1, hemoglobin 7.7 and platelets 276 and WBC 7.65. Calcium 6.2. 02/20/2024 Patient is currently resting in the bed. Awake alert oriented x 3. Not requiring any oxygen supplementation. No complaints of chest pain or shortness of breath. Nephrostomy tube has good urine output. Laboratory data reviewed. Sodium 134 potassium 3.8 chloride 103 bicarb is 14.7 BUN 45.6 and creatinine 0.9 and blood sugar 123 and calcium 6.3. Patient currently on on antibiotics in the form of ceftriaxone and daptomycin. ID and urology is on board. 02/21/2024 Patient is resting in the bed. Awake alert and orient x 3. Currently on room air. Heart rate is in 90s. Tmax 99.6. Patient is on antibiotics ceftriaxone and daptomycin. Patient is also on Diflucan. ID and urology is on board. Good urine output. Creatinine level normalized. Patient is on IV hydration with normal saline at 75 cc/h. Calcium improved to 6.5. REVIEW OF SYSTEMS: CONSTITUTIONAL: No fever, no malaise. Reports fatigue. HEENT: No recent visual problems or hearing problems. Denied any sore throat. CARDIOVASCULAR: No chest pain, orthopnea, PND, no palpitations, no syncope. PULMONARY: No shortness of breath, no cough, no hemoptysis. GASTROINTESTINAL: No diarrhea, no nausea, no vomiting, no abdominal pain. NEUROLOGICAL: No headaches, no weakness, no numbness. PHYSICAL EXAMINATION: GENERAL: The patient is alert and oriented x2-3, not in any acute distress. Well developed, well nourished. HEENT: Pupils are round and equally reacting to light. EOMI. No scleral icterus. No conjunctival pallor. Normocephalic, atraumatic. No pharyngeal erythema. No thyromegaly. CARDIOVASCULAR: S1 and S2 present. No murmurs, rubs, or gallops. PULMONARY: Chest is clear to auscultation, no wheezing or crackles. ABDOMEN: Soft, nontender, nondistended, normoactive bowel sounds. No palpable organomegaly. MUSCULOSKELETAL: No joint swelling or deformity. EXTREMITIES: No cyanosis, clubbing, Mild pedal edema. NEUROLOGICAL: Gross neurological examination did not reveal any focal deficits. Diffuse weakness. SKIN: Sacral pressure injury. Assessment Acute urinary tract infection; likely catheter associated; with sepsis and septic shock, POA. Patient was on pressor support. MRSA/Strep Bacteremia Sacral pressure injury, left thigh pressure injury POA stage III to both Acute kidney injury acute tubular necrosis hemodynamic instability from infection. Altered mental status acute metabolic and toxic encephalopathy. Improved Neurogenic bladder and urostomy stoma History of Spina Bifidi and chiari malformation patient is bedbound at baseline Diabetes Mellitus type 2 Gastroesophageal reflux disease Hx of asthma with no acute exacerbation Hx of hydrocephalus and VA shunt Chronic kidney disease Anemia of chronic disease GI prophylaxis DVT prophylaxis Do Not Resuscitate/Do Not Intubate Plan Continue IV antibiotics with IV meropenem/IV daptomycin. Meropenem changed to ceftriaxone. Blood cultures showed MRSA and strep agalactiae. Wound cultures growing Acinetobacter and E. coli and Proteus. Wound VAC to be applied to the sacral wound. Continue with wound care. Change fluid to normal saline at 100 mls.hr Need to hold the MS Contin due to renal dysfunction Strait cath stoma 3/4 times per day and also send a urine culture from the stoma. Urology and pulmonary is on board. Wound care consult Repeat labs in the AM. Follow-up sodium level. Objective - Vital Signs Vital signs: Vital Signs Temp 98.8 F 02/21/24 20:00 Pulse 102 H 02/21/24 20:00 Resp 18 02/21/24 13:54 BP 107/59 02/21/24 20:00 Pulse Ox 97 02/21/24 20:00 FiO2 Intake & Output 02/21/24 02/21/24 02/22/24 06:59 18:59 06:59 Output Total 1999 Balance -1999 Output: Urine 1999 Other: Voiding Method Ileal Conduit (Right) # Bowel Movements 2 - Labs CBC & Chem 7: 02/21/24 04:07 02/21/24 04:07 Labs: Abnormal Lab Results - Last 24 Hours (Table) 02/20/24 02/21/24 02/21/24 Range/Units 12:03 04:07 04:07 RBC 3.01 L (3.80-5.40) m/uL Hgb 7.6 L (11.4-16.0) gm/dL Hct 24.2 L (34.0-46.0) % RDW 20.9 H (11.5-15.5) % Sodium 134 L 132 L (135-145) mmol/L Chloride 110 H (98-107) mmol/L Carbon Dioxide 14.7 L 18 L (21.6-31.8) mmol/L Anion Gap 16.30 H (4.00-12.00) mmol/L BUN 45.6 H 41 H (9.0-27.0) mg/dL BUN/Creatinine Ratio 50.67 H (12.00-20.00) Ratio Glucose 123 H 119 H (70-110) mg/dL POC Glucose (mg/dL) (70-110) mg/dL Calcium 6.3 A* 6.5 L (8.7-10.3) mg/dL C-Reactive Protein 5.9 H (<1.0) mg/dL 02/21/24 02/21/24 02/21/24 Range/Units 06:34 11:22 17:03 RBC (3.80-5.40) m/uL Hgb (11.4-16.0) gm/dL Hct (34.0-46.0) % RDW (11.5-15.5) % Sodium (135-145) mmol/L Chloride (98-107) mmol/L Carbon Dioxide (21.6-31.8) mmol/L Anion Gap (4.00-12.00) mmol/L BUN (9.0-27.0) mg/dL BUN/Creatinine Ratio (12.00-20.00) Ratio Glucose (70-110) mg/dL POC Glucose (mg/dL) 116 H 149 H 222 H (70-110) mg/dL Calcium (8.7-10.3) mg/dL C-Reactive Protein (<1.0) mg/dL 02/21/24 Range/Units 21:30 RBC (3.80-5.40) m/uL Hgb (11.4-16.0) gm/dL Hct (34.0-46.0) % RDW (11.5-15.5) % Sodium (135-145) mmol/L Chloride (98-107) mmol/L Carbon Dioxide (21.6-31.8) mmol/L Anion Gap (4.00-12.00) mmol/L BUN (9.0-27.0) mg/dL BUN/Creatinine Ratio (12.00-20.00) Ratio Glucose (70-110) mg/dL POC Glucose (mg/dL) 137 H (70-110) mg/dL Calcium (8.7-10.3) mg/dL C-Reactive Protein (<1.0) mg/dL Microbiology - Last 24 Hours (Table) 02/15/24 14:25 Blood Culture - Final Blood
[2024-02-22 05:40] LABS: Glucose,Whole Blood 110 mg/dL (70-110)
[2024-02-22] MEDS: FLUCONAZOLE 100 MG TAB PO SCH (10:32)
[2024-02-22 11:17] LABS: Blood Urea Nitrogen 27.4 mg/dL (9.0-27.0); Calcium 6.7 mg/dL (8.7-10.3); Chloride 109 mmol/L (96-109); Glucose 126 mg/dL (70-110); Potassium 3.7 mmol/L (3.5-5.5); Sodium 135 mmol/L (135-145)
[2024-02-22 11:59] LABS: Glucose,Whole Blood 116 mg/dL (70-110)
--- NOTE | 2024-02-22 16:27 | P.PN ---
Subjective Progress Note Date: 02/22/24 Principal diagnosis: Reason for follow-up sepsis UTI and pressure ulcer Patient is a 58-year-old female with a past medical history significant for diabetes mellitus reflux asthma spina bifida, this patient who is a bedbound and did have a sacral pressure ulcer with the previous episode of osteomyelitis patient has been brought into the [facility] local [facility] after the patient was found to be lethargic mental status changes noticed to be septic require admission to the ICU blood cultures came back positive with MRSA. On today's visit that is 02/22/2024, Patient is afebrile patient is currently on room air and denies having any shortness of breath, the patient denies any chest pain or cough, the patient denies any nausea vomiting did not have any abdominal pain and no diarrhea has been reported. Patient did have creatinine 0.5 urine is growing Amira Objective - Vital Signs Vital signs: Vital Signs Temp 98.0 F 02/22/24 14:04 Pulse 95 02/22/24 14:04 Resp 16 02/22/24 14:04 BP 104/65 02/22/24 14:04 Pulse Ox 98 02/22/24 14:04 FiO2 Intake & Output 02/21/24 02/22/24 02/22/24 18:59 06:59 18:59 Output Total 950 Balance -950 Weight 75 kg Output: Urine 950 Other: Voiding Method Ileal Conduit (Right) Ileal Conduit (Right) # Bowel Movements 2 - Exam GENERAL DESCRIPTION: Middle-age female lying in bed in no distress RESPIRATORY SYSTEM: Unlabored breathing , decreased breath sounds at bases HEART: S1 S2 regular rate and rhythm , ABDOMEN: Soft , no tenderness EXTREMITIES: No edema feet - Labs CBC & Chem 7: 02/21/24 04:07 02/22/24 03:01 Labs: Abnormal Lab Results - Last 24 Hours (Table) 02/20/24 02/21/24 02/21/24 Range/Units 12:03 10:11 17:03 ESR 88 H (0-30) mm/Hr Sodium 134 L (135-145) mmol/L Carbon Dioxide 14.7 L (21.6-31.8) mmol/L Anion Gap 16.30 H (4.00-12.00) mmol/L BUN 45.6 H (9.0-27.0) mg/dL Creatinine (0.6-1.5) mg/dL BUN/Creatinine Ratio 50.67 H (12.00-20.00) Ratio Glucose 123 H (70-110) mg/dL POC Glucose (mg/dL) 222 H (70-110) mg/dL Calcium 6.3 A* (8.7-10.3) mg/dL 02/21/24 02/22/24 02/22/24 Range/Units 21:30 03:01 11:58 ESR (0-30) mm/Hr Sodium (135-145) mmol/L Carbon Dioxide 16.0 L (21.6-31.8) mmol/L Anion Gap (4.00-12.00) mmol/L BUN 27.4 H (9.0-27.0) mg/dL Creatinine 0.5 L (0.6-1.5) mg/dL BUN/Creatinine Ratio 54.80 H (12.00-20.00) Ratio Glucose 126 H (70-110) mg/dL POC Glucose (mg/dL) 137 H 116 H (70-110) mg/dL Calcium 6.7 L (8.7-10.3) mg/dL Assessment and Plan (1) Catheter-associated urinary tract infection Current Visit: Yes Status: Acute Code(s): T83.511A - I/I REACT D/T INDWELLING URETHRAL CATHETER, INIT; N39.0 - URINARY TRACT INFECTION, SITE NOT SPECIFIED SNOMED Code(s): 350017107 (2) Allergy to multiple antibiotics Current Visit: No Status: Acute Code(s): Z88.1 - ALLERGY STATUS TO OTHER ANTIBIOTIC AGENTS SNOMED Code(s): 202707739 (3) Pressure injury of sacral region, stage 4 Current Visit: No Status: Acute Code(s): L89.154 - PRESSURE ULCER OF SACRAL REGION, STAGE 4 SNOMED Code(s): 42425484898459 (4) Sepsis Current Visit: No Status: Acute Code(s): A41.9 - SEPSIS, UNSPECIFIED ORGANISM SNOMED Code(s): 62764964 (5) MRSA bacteremia Current Visit: Yes Status: Acute Code(s): R78.81 - BACTEREMIA; B95.62 - METHICILLIN RESIS STAPH INFCT CAUSING DISEASES CL[facility]SD [facility] SNOMED Code(s): 58047089953631412 Plan: 1patient presented to hospital with sepsis in this patient who did have a hypotension tachycardia likely multifactorial more likely related to the catheter associated tract infection as the patient has significantly positive UA and a suprapubic catheter patient also have a pressure ulcer to the sacral area and the right posterior thigh but no significant slough tissue was noticed 2-patient with multiple antibiotic ALLERGIES that would limit the number of antibiotic safe to use 3--local wound care with the Aquacel silver dressing change every 48 hours 4patient did have a positive blood culture with MRSA, repeat blood cultures so far negative local wound culture did grew drug-resistant Acinetobacter, E. coli Proteus and strep 5patient still has significant cloudy urine repeat UA culture has been requested which is currently growing Amira Diflucan has been added 6patient to continue with the daptomycin for the MRSA bacteremia along with Rocephin to cover for the pathogen recovered from her wound, will order PICC line for outpatient IV antibiotics Dictation was produced using [employer] dictation software. please excuse any grammatical, word or spelling errors. Time with Patient: Less than 30
[2024-02-22 16:52] LABS: Appearance,Urine Turbid (Clear); Bacteria,Urine Occasional /hpf; Bilirubin,Urine Negative (Negative); Blood,Urine Small (Negative); Color,Urine Light Yellow; Glucose,Urine (UA) Negative (Negative); Ketones,Urine Negative (Negative); Leukocyte Esterase,Urine Large (Negative); Nitrite,Urine Negative (Negative); PH, Urine 6.5 (5.0-8.0); Protein,Urine 2+ (Negative); RBC,Urine 42 /hpf (0-5); Specific Gravity,Urine 1.014 (1.001-1.035); Urobilinogen,Urine <2.0 mg/dL (<2.0); WBC,Urine >182 /hpf (0-5)
[2024-02-22 17:36] LABS: Glucose,Whole Blood 144 mg/dL (70-110)
[2024-02-22 21:22] LABS: Glucose,Whole Blood 176 mg/dL (70-110)
[2024-02-23 06:01] LABS: Glucose,Whole Blood 111 mg/dL (70-110)
[2024-02-23 06:23] LABS: African American GFR (CKD) >90 (>60 ml/min/1.73 sqM); Anion Gap 6 mmol/L; Blood Urea Nitrogen 25 mg/dL (7-17); Calcium 7.2 mg/dL (8.4-10.2); Carbon Dioxide 16 mmol/L (22-30); Chloride 112 mmol/L (98-107); Glucose 112 mg/dL (74-99); Non-African American GFR(CKD) >90 (>60 ml/min/1.73 sqM); Potassium 4.2 mmol/L (3.5-5.1); Sodium 134 mmol/L (137-145)
[2024-02-23 08:10] LABS: Anisocytosis Moderate; Basophils % (A) 0 %; Eosinophils # (A) 0.1 k/uL (0-0.7); Eosinophils % (A) 1 %; HCT 22.9 % (34.0-46.0); Hypochromasia Marked; Lymphocytes # (A) 1.7 k/uL (1.0-4.8); Lymphocytes % (A) 25 %; MCH 25.1 pg (25.0-35.0); MCHC 30.4 g/dL (31.0-37.0); MCV 82.4 fL (80.0-100.0); Mean Platelet Volume 8.5; Microcytosis Slight; Monocytes # (A) 0.5 k/uL (0-1.0); Monocytes % (A) 7 %; Neutrophils # (A) 4.4 k/uL (1.3-7.7); Neutrophils % (A) 65 %; Platelet Count 302 k/uL (150-450); Poikilocytosis Slight; RBC 2.78 m/uL (3.80-5.40); RDW 21.2 % (11.5-15.5); WBC 6.7 k/uL (3.8-10.6)
[2024-02-23 11:55] LABS: Glucose,Whole Blood 149 mg/dL (70-110)
[2024-02-23 17:01] LABS: Glucose,Whole Blood 123 mg/dL (70-110)
[2024-02-23 21:20] LABS: Glucose,Whole Blood 150 mg/dL (70-110)
[2024-02-23 21:50] VITALS: RESP 17
--- NOTE | 2024-02-24 00:24 | P.PN ---
Subjective Progress Note Date: 02/23/24 This is a pleasant 58 year old female with medical history of spina bifida, asthma, diabetes mellitus , GERD, sleep apnea, chiari malformation. Patient comes to the hospital from the assisted with concern for altered mentation and low blood pressure down into the 70s systolic. Patient was admitted to the ICU with consults placed to pulmonary barrel assembly inspector and ID. Patient is bedbound at baseline; does have known sacral pressure injury as well as pressure injury to the left thigh. Patient was given fluid bolus and started on levophed pressor support. Patient has been started on IV meropenem with concern for UTI and does have history of ESBL. Chest x-ray reveals mild pulmonary vascular congestion. EKG reveals sinus tachycardia heart rate of [address] or T wave changes. Blood work reveals a white blood cell count of 8.1, hemoglobin 6.8, platelet count of 488, potassium of 5.6, BUN of 108, creatinine of 2.03, lactic acid of 0.7, troponin level is negative, urinalysis is significantly abnormal with a turbid appearance, large leukocyte Estrace, greater than 182 WBCs and few bacteria. Patient is not complaining of any chest pain or shortness of breath she is currently awake and alert and less confused her family is at the bedside. Her main complaint today is the pain she is having from the sacral wound. Patient is maintained on MS contin outpatient will need to be held secondary to the renal dysfunction. Blood cultures today have come back showing gram-positive cocci in chains as well as gram-positive cocci in clusters, Staphylococcus species, Streptococcus species, strep collected group B, MRSA are showing as positive. Preliminary wound culture of the sacral ulcer reveal few gram positive bacilli, few gram positive cocci, and few gram negative bacilli. Patient is not on combination of IV daptomycin, IV meropenem. 02/16/2024 Is evaluated in follow-up on the medical floor. She is more awake alert. Patient is off the pressor support and her blood pressure is maintaining in 120s to 130s systolic. Her creatinine has improved significantly and down to 1.15. White blood cell count is 4.0, hemoglobin 7.1, potassium 3.3 patient continues on a combination of IV daptomycin and IV meropenem. Her urine culture is negative, found to have MRSA bacteremia and this is likely from the sacral decubitus wound. Patient was seen in consultation by wound care and recommended for a wound VAC to the sacral decubitus ulcer. 02/17/2024 Evaluated in follow-up in the medical floor. She is concerned with not being able to straight cath her urostomy and worried about the backflow. There is significant sediment in the urine is a cloudy color. Her urine culture was found to be negative. We are waiting for repeat blood cultures so far pulmonary is negative she remains on IV daptomycin and IV meropenem. Wound VAC in place to the sacral ulcer. Once patient is medically ready she will discharge back to [facility]. Work today reveals a white blood cell count of 6.1, hemoglobin 7.5, sodium 133, BUN 78, creatinine 1.14, calcium 5.5. 02/18/2024 Patient evaluated today on the medical floor. She was strait cathed a few times through the urostomy and the urine is cloudy and turbid. We will send a urine culture from the stoma. Patient continues with wound VAC on the sacral ulcer having significant pain. And the MS Contin has been held for now as her blood pressure has been low. Renal function is slowly improving. Hgb 7.2, Sodium 131, BUN 69.5, creatinine 1.5, glucose 130, calcium 5.6, magnesium 1.4. Blood pressure 92/60. Blood culture showing MRA, Group B strep, Coagulase negative staph. Repeat blood culture pending. 02/19/2024 Patient is resting in the bed. Awake and alert. No acute distress. Currently on room air. Right nephrostomy bag is being changed today. Otherwise blood cultures growing MRSA and strep agalactiae and wound cultures growing Acinetobacter E. coli and Proteus. Patient is being continued on antibiotics meropenem and daptomycin. Patient is on IV hydration with normal saline at 100 cc/h. Laboratory data showed sodium 128 potassium 3.9 chloride 102 bicarb is 17 BUN 65 and creatinine 1.1, hemoglobin 7.7 and platelets 276 and WBC 7.65. Calcium 6.2. 02/20/2024 Patient is currently resting in the bed. Awake alert oriented x 3. Not requiring any oxygen supplementation. No complaints of chest pain or shortness of breath. Nephrostomy tube has good urine output. Laboratory data reviewed. Sodium 134 potassium 3.8 chloride 103 bicarb is 14.7 BUN 45.6 and creatinine 0.9 and blood sugar 123 and calcium 6.3. Patient currently on on antibiotics in the form of ceftriaxone and daptomycin. ID and urology is on board. 02/21/2024 Patient is resting in the bed. Awake alert and orient x 3. Currently on room air. Heart rate is in 90s. Tmax 99.6. Patient is on antibiotics ceftriaxone and daptomycin. Patient is also on Diflucan. ID and urology is on board. Good urine output. Creatinine level normalized. Patient is on IV hydration with normal saline at 75 cc/h. Calcium improved to 6.5. 02/22/2024 Patient is resting in the bed. Awake alert and oriented x 3. Bilateral lower extremity pain is controlled. Afebrile. On room air. No nausea vomiting. Tolerating oral diet. Urine culture from 02/18/2024 growing Amira albicans. Patient remains on antibiotics in the form of ceftriaxone and daptomycin. Also on Diflucan. ID is on board. Repeat urinalysis showed turbid with 2+ protein small blood large leukocyte esterase with elevated RBCs and WBCs. ID is on board. 02/23/2024 Patient is resting in bed. Awake alert and oriented x 3. No cough or sputum production. Bilateral wound dressing was done and vascular surgery is planning for debridement again tomorrow. Laboratory data showed sodium 134 potassium 4.2 chloride 112 bicarb 16 BUN 25 and creatinine 0.53 WBC 6.7 hemoglobin 7.0 and platelets 302 and blood sugar is controlled. REVIEW OF SYSTEMS: CONSTITUTIONAL: No fever, no malaise. Reports fatigue. HEENT: No recent visual problems or hearing problems. Denied any sore throat. CARDIOVASCULAR: No chest pain, orthopnea, PND, no palpitations, no syncope. PULMONARY: No shortness of breath, no cough, no hemoptysis. GASTROINTESTINAL: No diarrhea, no nausea, no vomiting, no abdominal pain. NEUROLOGICAL: No headaches, no weakness, no numbness. PHYSICAL EXAMINATION: GENERAL: The patient is alert and oriented x2-3, not in any acute distress. Well developed, well nourished. HEENT: Pupils are round and equally reacting to light. EOMI. No scleral icterus. No conjunctival pallor. Normocephalic, atraumatic. No pharyngeal erythema. No thyromegaly. CARDIOVASCULAR: S1 and S2 present. No murmurs, rubs, or gallops. PULMONARY: Chest is clear to auscultation, no wheezing or crackles. ABDOMEN: Soft, nontender, nondistended, normoactive bowel sounds. No palpable organomegaly. MUSCULOSKELETAL: No joint swelling or deformity. EXTREMITIES: No cyanosis, clubbing, Mild pedal edema. NEUROLOGICAL: Gross neurological examination did not reveal any focal deficits. Diffuse weakness. SKIN: Sacral pressure injury. Assessment Acute urinary tract infection; likely catheter associated; with sepsis and septic shock, POA. Patient was on pressor support. MRSA/Strep Bacteremia Sacral pressure injury, left thigh pressure injury POA stage III to both Acute kidney injury acute tubular necrosis hemodynamic instability from infection. Altered mental status acute metabolic and toxic encephalopathy. Improved Neurogenic bladder and urostomy stoma History of Spina Bifidi and chiari malformation patient is bedbound at baseline Diabetes Mellitus type 2 Gastroesophageal reflux disease Hx of asthma with no acute exacerbation Hx of hydrocephalus and VA shunt Chronic kidney disease Anemia of chronic disease GI prophylaxis DVT prophylaxis Do Not Resuscitate/Do Not Intubate Plan Patient is scheduled for wound debridement of the lower extremities tomorrow. Continue IV antibiotics with IV meropenem/IV daptomycin. Meropenem changed to ceftriaxone. Blood cultures showed MRSA and strep agalactiae. Urine cultures growing Amira albicans. Wound cultures growing Acinetobacter and E. coli and Proteus. Wound VAC to be applied to the sacral wound. Continue with wound care. Change fluid to normal saline at 75 cc/h. Need to hold the MS Contin due to renal dysfunction Strait cath stoma 3/4 times per day. Vascular surgery and ID is on board. Was seen by urology. Wound care consult Repeat labs in the AM. Follow-up sodium level. Objective - Vital Signs Vital signs: Vital Signs Temp 98.3 F 02/23/24 20:03 Pulse 97 02/23/24 20:03 Resp 17 02/23/24 20:03 BP 101/56 02/23/24 20:03 Pulse Ox 98 02/23/24 20:03 FiO2 Intake & Output 02/23/24 02/23/24 02/24/24 06:59 18:59 06:59 Intake Total 1000 Output Total 525 Balance -525 1000 Intake: Intake, IV Titration 1000 Amount DAPTOmycin 450 mg In 50 Sodium Chloride 0.9% 50 ml @ 100 mls/hr IVPB Q24H [facility] Rx#:[id number] Sodium Chloride 0.9% 1, 900 000 ml @ 75 mls/hr IV . [id number] [facility] Rx#:[id number] cefTRIAXone 2 gm In 50 Sodium Chloride 0.9% 50 ml @ 100 mls/hr IVPB Q24H [facility] Rx#:[id number] Output: Urine 525 Other: Voiding Method Ileal Conduit (Right) Ileal Conduit (Right) # Bowel Movements 1 - Labs CBC & Chem 7: 02/23/24 07:02 02/23/24 04:06 Labs: Abnormal Lab Results - Last 24 Hours (Table) 02/23/24 02/23/24 02/23/24 Range/Units 04:06 05:59 07:02 RBC 2.78 L (3.80-5.40) m/uL Hgb 7.0 L (11.4-16.0) gm/dL Hct 22.9 L (34.0-46.0) % MCHC 30.4 L (31.0-37.0) g/dL RDW 21.2 H (11.5-15.5) % Sodium 134 L (137-145) mmol/L Chloride 112 H (98-107) mmol/L Carbon Dioxide 16 L (22-30) mmol/L BUN 25 H (7-17) mg/dL Glucose 112 H (74-99) mg/dL POC Glucose (mg/dL) 111 H (70-110) mg/dL Calcium 7.2 L (8.4-10.2) mg/dL 02/23/24 02/23/24 02/23/24 Range/Units 11:54 17:00 21:19 RBC (3.80-5.40) m/uL Hgb (11.4-16.0) gm/dL Hct (34.0-46.0) % MCHC (31.0-37.0) g/dL RDW (11.5-15.5) % Sodium (137-145) mmol/L Chloride (98-107) mmol/L Carbon Dioxide (22-30) mmol/L BUN (7-17) mg/dL Glucose (74-99) mg/dL POC Glucose (mg/dL) 149 H 123 H 150 H (70-110) mg/dL Calcium (8.4-10.2) mg/dL Microbiology - Last 24 Hours (Table) 02/22/24 16:31 Urine Culture - Final Urine,Voided
--- NOTE | 2024-02-24 00:28 | P.PN ---
Subjective Progress Note Date: 02/22/24 This is a pleasant 58 year old female with medical history of spina bifida, asthma, diabetes mellitus , GERD, sleep apnea, chiari malformation. Patient comes to the hospital from the custodial with concern for altered mentation and low blood pressure down into the 70s systolic. Patient was admitted to the ICU with consults placed to pulmonary contact center specialist and ID. Patient is bedbound at baseline; does have known sacral pressure injury as well as pressure injury to the left thigh. Patient was given fluid bolus and started on levophed pressor support. Patient has been started on IV meropenem with concern for UTI and does have history of ESBL. Chest x-ray reveals mild pulmonary vascular congestion. EKG reveals sinus tachycardia heart rate of [address] or T wave changes. Blood work reveals a white blood cell count of 8.1, hemoglobin 6.8, platelet count of 488, potassium of 5.6, BUN of 108, creatinine of 2.03, lactic acid of 0.7, troponin level is negative, urinalysis is significantly abnormal with a turbid appearance, large leukocyte Estrace, greater than 182 WBCs and few bacteria. Patient is not complaining of any chest pain or shortness of breath she is currently awake and alert and less confused her family is at the bedside. Her main complaint today is the pain she is having from the sacral wound. Patient is maintained on MS contin outpatient will need to be held secondary to the renal dysfunction. Blood cultures today have come back showing gram-positive cocci in chains as well as gram-positive cocci in clusters, Staphylococcus species, Streptococcus species, strep collected group B, MRSA are showing as positive. Preliminary wound culture of the sacral ulcer reveal few gram positive bacilli, few gram positive cocci, and few gram negative bacilli. Patient is not on combination of IV daptomycin, IV meropenem. 02/16/2024 Is evaluated in follow-up on the medical floor. She is more awake alert. Patient is off the pressor support and her blood pressure is maintaining in 120s to 130s systolic. Her creatinine has improved significantly and down to 1.15. White blood cell count is 4.0, hemoglobin 7.1, potassium 3.3 patient continues on a combination of IV daptomycin and IV meropenem. Her urine culture is negative, found to have MRSA bacteremia and this is likely from the sacral decubitus wound. Patient was seen in consultation by wound care and recommended for a wound VAC to the sacral decubitus ulcer. 02/17/2024 Evaluated in follow-up in the medical floor. She is concerned with not being able to straight cath her urostomy and worried about the backflow. There is significant sediment in the urine is a cloudy color. Her urine culture was found to be negative. We are waiting for repeat blood cultures so far pulmonary is negative she remains on IV daptomycin and IV meropenem. Wound VAC in place to the sacral ulcer. Once patient is medically ready she will discharge back to [facility]. Work today reveals a white blood cell count of 6.1, hemoglobin 7.5, sodium 133, BUN 78, creatinine 1.14, calcium 5.5. 02/18/2024 Patient evaluated today on the medical floor. She was strait cathed a few times through the urostomy and the urine is cloudy and turbid. We will send a urine culture from the stoma. Patient continues with wound VAC on the sacral ulcer having significant pain. And the MS Contin has been held for now as her blood pressure has been low. Renal function is slowly improving. Hgb 7.2, Sodium 131, BUN 69.5, creatinine 1.5, glucose 130, calcium 5.6, magnesium 1.4. Blood pressure 92/60. Blood culture showing MRA, Group B strep, Coagulase negative staph. Repeat blood culture pending. 02/19/2024 Patient is resting in the bed. Awake and alert. No acute distress. Currently on room air. Right nephrostomy bag is being changed today. Otherwise blood cultures growing MRSA and strep agalactiae and wound cultures growing Acinetobacter E. coli and Proteus. Patient is being continued on antibiotics meropenem and daptomycin. Patient is on IV hydration with normal saline at 100 cc/h. Laboratory data showed sodium 128 potassium 3.9 chloride 102 bicarb is 17 BUN 65 and creatinine 1.1, hemoglobin 7.7 and platelets 276 and WBC 7.65. Calcium 6.2. 02/20/2024 Patient is currently resting in the bed. Awake alert oriented x 3. Not requiring any oxygen supplementation. No complaints of chest pain or shortness of breath. Nephrostomy tube has good urine output. Laboratory data reviewed. Sodium 134 potassium 3.8 chloride 103 bicarb is 14.7 BUN 45.6 and creatinine 0.9 and blood sugar 123 and calcium 6.3. Patient currently on on antibiotics in the form of ceftriaxone and daptomycin. ID and urology is on board. 02/21/2024 Patient is resting in the bed. Awake alert and orient x 3. Currently on room air. Heart rate is in 90s. Tmax 99.6. Patient is on antibiotics ceftriaxone and daptomycin. Patient is also on Diflucan. ID and urology is on board. Good urine output. Creatinine level normalized. Patient is on IV hydration with normal saline at 75 cc/h. Calcium improved to 6.5. 02/22/2024 Patient is resting in the bed. Awake alert and oriented x 3. Bilateral lower extremity pain is controlled. Afebrile. On room air. No nausea vomiting. Tolerating oral diet. Urine culture from 02/18/2024 growing Amira albicans. Patient remains on antibiotics in the form of ceftriaxone and daptomycin. Also on Diflucan. ID is on board. Repeat urinalysis showed turbid with 2+ protein small blood large leukocyte esterase with elevated RBCs and WBCs. ID is on board. REVIEW OF SYSTEMS: CONSTITUTIONAL: No fever, no malaise. Reports fatigue. HEENT: No recent visual problems or hearing problems. Denied any sore throat. CARDIOVASCULAR: No chest pain, orthopnea, PND, no palpitations, no syncope. PULMONARY: No shortness of breath, no cough, no hemoptysis. GASTROINTESTINAL: No diarrhea, no nausea, no vomiting, no abdominal pain. NEUROLOGICAL: No headaches, no weakness, no numbness. PHYSICAL EXAMINATION: GENERAL: The patient is alert and oriented x2-3, not in any acute distress. Well developed, well nourished. HEENT: Pupils are round and equally reacting to light. EOMI. No scleral icterus. No conjunctival pallor. Normocephalic, atraumatic. No pharyngeal erythema. No thyromegaly. CARDIOVASCULAR: S1 and S2 present. No murmurs, rubs, or gallops. PULMONARY: Chest is clear to auscultation, no wheezing or crackles. ABDOMEN: Soft, nontender, nondistended, normoactive bowel sounds. No palpable organomegaly. MUSCULOSKELETAL: No joint swelling or deformity. EXTREMITIES: No cyanosis, clubbing, Mild pedal edema. NEUROLOGICAL: Gross neurological examination did not reveal any focal deficits. Diffuse weakness. SKIN: Sacral pressure injury. Assessment Acute urinary tract infection; likely catheter associated; with sepsis and septic shock, POA. Patient was on pressor support. MRSA/Strep Bacteremia Sacral pressure injury, left thigh pressure injury POA stage III to both Acute kidney injury acute tubular necrosis hemodynamic instability from infection. Altered mental status acute metabolic and toxic encephalopathy. Improved Neurogenic bladder and urostomy stoma History of Spina Bifidi and chiari malformation patient is bedbound at baseline Diabetes Mellitus type 2 Gastroesophageal reflux disease Hx of asthma with no acute exacerbation Hx of hydrocephalus and VA shunt Chronic kidney disease Anemia of chronic disease GI prophylaxis DVT prophylaxis Do Not Resuscitate/Do Not Intubate Plan Continue IV antibiotics with IV meropenem/IV daptomycin. Meropenem changed to ceftriaxone. Blood cultures showed MRSA and strep agalactiae. Urine cultures growing Amira albicans. Wound cultures growing Acinetobacter and E. coli and Proteus. Wound VAC to be applied to the sacral wound. Continue with wound care. Change fluid to normal saline at 75 cc/h. Need to hold the MS Contin due to renal dysfunction Strait cath stoma 3/4 times per day. Vascular surgery and ID is on board. Was seen by urology. Wound care consult Repeat labs in the AM. Follow-up sodium level. Objective - Vital Signs Vital signs: Vital Signs Temp 98.0 F 02/22/24 14:04 Pulse 95 02/22/24 14:04 Resp 16 02/22/24 14:04 BP 104/65 02/22/24 14:04 Pulse Ox 98 02/22/24 14:04 FiO2 Intake & Output 02/22/24 02/22/24 02/23/24 06:59 18:59 06:59 Intake Total 200 Output Total 950 1100 Balance -950 -900 Weight 75 kg Intake: Oral 200 Output: Urine 950 1100 Other: Voiding Method Ileal Conduit (Right) Ileal Conduit (Right) - Labs CBC & Chem 7: 02/23/24 07:02 02/23/24 04:06 Labs: Abnormal Lab Results - Last 24 Hours (Table) 02/21/24 02/22/24 02/22/24 Range/Units 10:11 03:01 11:58 ESR 88 H (0-30) mm/Hr Carbon Dioxide 16.0 L (21.6-31.8) mmol/L BUN 27.4 H (9.0-27.0) mg/dL Creatinine 0.5 L (0.6-1.5) mg/dL BUN/Creatinine Ratio 54.80 H (12.00-20.00) Ratio Glucose 126 H (70-110) mg/dL POC Glucose (mg/dL) 116 H (70-110) mg/dL Calcium 6.7 L (8.7-10.3) mg/dL Urine Appearance (Clear) Urine Protein (Negative) Urine Blood (Negative) Ur Leukocyte Esterase (Negative) Urine RBC (0-5) /hpf Urine WBC (0-5) /hpf Urine WBC Clumps (None) /hpf Urine Bacteria (None) /hpf 02/22/24 02/22/24 02/22/24 Range/Units 16:31 17:35 21:21 ESR (0-30) mm/Hr Carbon Dioxide (21.6-31.8) mmol/L BUN (9.0-27.0) mg/dL Creatinine (0.6-1.5) mg/dL BUN/Creatinine Ratio (12.00-20.00) Ratio Glucose (70-110) mg/dL POC Glucose (mg/dL) 144 H 176 H (70-110) mg/dL Calcium (8.7-10.3) mg/dL Urine Appearance Turbid H (Clear) Urine Protein 2+ H (Negative) Urine Blood Small H (Negative) Ur Leukocyte Esterase Large H (Negative) Urine RBC 42 H (0-5) /hpf Urine WBC >182 H (0-5) /hpf Urine WBC Clumps Many H (None) /hpf Urine Bacteria Occasional H (None) /hpf Microbiology - Last 24 Hours (Table) 02/17/24 07:53 Blood Culture - Final Blood
[2024-02-24 06:05] LABS: Glucose,Whole Blood 103 mg/dL (70-110)
--- NOTE | 2024-02-24 08:11 | P.PN ---
Subjective Progress Note Date: 02/23/24 Principal diagnosis: Reason for follow-up sepsis UTI and pressure ulcer Patient is a 58-year-old female with a past medical history significant for diabetes mellitus reflux asthma spina bifida, this patient who is a bedbound and did have a sacral pressure ulcer with the previous episode of osteomyelitis patient has been brought into the hospital from the local [facility] after the patient was found to be lethargic mental status changes noticed to be septic require admission to the ICU blood cultures came back positive with MRSA. On today's visit that is 02/23/2024, patient has been afebrile, patient is breathing comfortably and is currently on room air, patient denies having any significant cough no chest pain shortness of breath, patient denies nausea vomi ting or diarrhea and no abdominal pain. The patient white count 6.7 creatinine 0.53 blood culture repeat has been negative Objective - Vital Signs Vital signs: Vital Signs Temp 98.1 F 02/23/24 07:42 Pulse 87 02/23/24 07:42 Resp 16 02/23/24 07:42 BP 93/54 02/23/24 07:42 Pulse Ox 98 02/23/24 07:42 FiO2 Intake & Output 02/22/24 02/23/24 02/23/24 18:59 06:59 18:59 Intake Total 200 Output Total 1100 525 Balance -900 -525 Weight 75 kg Intake: Oral 200 Output: Urine 1100 525 Other: Voiding Method Ileal Conduit (Right) Ileal Conduit (Right) Ileal Conduit (Right) # Bowel Movements 1 - Exam GENERAL DESCRIPTION: Middle-age female lying in bed in no distress RESPIRATORY SYSTEM: Unlabored breathing , decreased breath sounds at bases HEART: S1 S2 regular rate and rhythm , ABDOMEN: Soft , no tenderness EXTREMITIES: No edema feet - Labs CBC & Chem 7: 02/23/24 07:02 02/23/24 04:06 Labs: Abnormal Lab Results - Last 24 Hours (Table) 02/22/24 02/22/24 02/22/24 Range/Units 16:31 17:35 21:21 RBC (3.80-5.40) m/uL Hgb (11.4-16.0) gm/dL Hct (34.0-46.0) % MCHC (31.0-37.0) g/dL RDW (11.5-15.5) % Sodium (137-145) mmol/L Chloride (98-107) mmol/L Carbon Dioxide (22-30) mmol/L BUN (7-17) mg/dL Glucose (74-99) mg/dL POC Glucose (mg/dL) 144 H 176 H (70-110) mg/dL Calcium (8.4-10.2) mg/dL Urine Appearance Turbid H (Clear) Urine Protein 2+ H (Negative) Urine Blood Small H (Negative) Ur Leukocyte Esterase Large H (Negative) Urine RBC 42 H (0-5) /hpf Urine WBC >182 H (0-5) /hpf Urine WBC Clumps Many H (None) /hpf Urine Bacteria Occasional H (None) /hpf 02/23/24 02/23/24 02/23/24 Range/Units 04:06 05:59 07:02 RBC 2.78 L (3.80-5.40) m/uL Hgb 7.0 L (11.4-16.0) gm/dL Hct 22.9 L (34.0-46.0) % MCHC 30.4 L (31.0-37.0) g/dL RDW 21.2 H (11.5-15.5) % Sodium 134 L (137-145) mmol/L Chloride 112 H (98-107) mmol/L Carbon Dioxide 16 L (22-30) mmol/L BUN 25 H (7-17) mg/dL Glucose 112 H (74-99) mg/dL POC Glucose (mg/dL) 111 H (70-110) mg/dL Calcium 7.2 L (8.4-10.2) mg/dL Urine Appearance (Clear) Urine Protein (Negative) Urine Blood (Negative) Ur Leukocyte Esterase (Negative) Urine RBC (0-5) /hpf Urine WBC (0-5) /hpf Urine WBC Clumps (None) /hpf Urine Bacteria (None) /hpf 02/23/24 Range/Units 11:54 RBC (3.80-5.40) m/uL Hgb (11.4-16.0) gm/dL Hct (34.0-46.0) % MCHC (31.0-37.0) g/dL RDW (11.5-15.5) % Sodium (137-145) mmol/L Chloride (98-107) mmol/L Carbon Dioxide (22-30) mmol/L BUN (7-17) mg/dL Glucose (74-99) mg/dL POC Glucose (mg/dL) 149 H (70-110) mg/dL Calcium (8.4-10.2) mg/dL Urine Appearance (Clear) Urine Protein (Negative) Urine Blood (Negative) Ur Leukocyte Esterase (Negative) Urine RBC (0-5) /hpf Urine WBC (0-5) /hpf Urine WBC Clumps (None) /hpf Urine Bacteria (None) /hpf Microbiology - Last 24 Hours (Table) 02/17/24 07:53 Blood Culture - Final Blood Assessment and Plan (1) Catheter-associated urinary tract infection Current Visit: Yes Status: Acute Code(s): T83.511A - I/I REACT D/T INDWELLING URETHRAL CATHETER, INIT; N39.0 - URINARY TRACT INFECTION, SITE NOT SPECIFIED SNOMED Code(s): 782831218 (2) Allergy to multiple antibiotics Current Visit: No Status: Acute Code(s): Z88.1 - ALLERGY STATUS TO OTHER ANTIBIOTIC AGENTS SNOMED Code(s): 306400253 (3) Pressure injury of sacral region, stage 4 Current Visit: No Status: Acute Code(s): L89.154 - PRESSURE ULCER OF SACRAL REGION, STAGE 4 SNOMED Code(s): 99663836105580 (4) Sepsis Current Visit: No Status: Acute Code(s): A41.9 - SEPSIS, UNSPECIFIED ORGANISM SNOMED Code(s): 04245264 (5) MRSA bacteremia Current Visit: Yes Status: Acute Code(s): R78.81 - BACTEREMIA; B95.62 - METHICILLIN RESIS STAPH INFCT CAUSING DISEASES CLASSD [facility] SNOMED Code(s): 60146042595239493 Plan: 1patient presented to hospital with sepsis in this patient who did have a hypotension tachycardia likely multifactorial more likely related to the catheter associated tract infection as the patient has significantly positive UA and a suprapubic catheter patient also have a pressure ulcer to the sacral area and the right posterior thigh but no significant slough tissue was noticed 2-patient with multiple antibiotic ALLERGIES that would limit the number of antibiotic safe to use 3--local wound care with the Aquacel silver dressing change every 48 hours 4patient did have a positive blood culture with MRSA, repeat blood cultures so far negative local wound culture did grew drug-resistant Acinetobacter, E. coli Proteus and strep 5patient cloudy urine urinary tract infection urine with Amira consider short course of Diflucan 6patient to continue with the daptomycin for the MRSA bacteremia along with Rocephin to cover for the pathogen recovered from her wound, plan is for 4 to 6 weeks of IV antibiotic therapy on discharge depending upon clinical response and close outpatient follow-up Dictation was produced using [employer] dictation software. please excuse any grammatical, word or spelling errors. Time with Patient: Less than 30
[2024-02-24 09:02] LABS: Blood Urea Nitrogen 17.4 mg/dL (9.0-27.0); Calcium 6.8 mg/dL (8.7-10.3); Carbon Dioxide 17.9 mmol/L (21.6-31.8); Chloride 110 mmol/L (96-109); Glucose 97 mg/dL (70-110); Potassium 3.7 mmol/L (3.5-5.5); Sodium 135 mmol/L (135-145)
[2024-02-24 11:39] LABS: Glucose,Whole Blood 125 mg/dL (70-110)
[2024-02-24 14:48] VITALS: BP 100/64; PULSE 77; TEMP 98
--- NOTE | 2024-02-24 15:10 | P.DS ---
Providers Date of admission: 02/14/24 15:12 Expected date of discharge: 02/24/24 Attending physician: Seth Dillard MD Consults: 02/14/24 15:11 Consult Physician Routine Consulting Provider: Jania Polo Consult Reason/Comments: uti sepsis Do you want consulting provider notified?: Yes Consult Physician Stat Consulting Provider: Delfino Doty Consult Reason/Comments: icu patient Do you want consulting provider notified?: Already Contacted 02/15/24 06:33 Consult Physician Stat Consulting Provider: Naeem Casiano Consult Reason/Comments: urostomy with retention Do you want consulting provider notified?: Already Contacted Primary care physician: Hilaria Reeder DO Hospital Course: Discharge diagnosis Acute urinary tract infection; likely catheter associated; with sepsis and septic shock, POA. Patient was requiring pressor support. MRSA/Strep and strep agalactiae Bacteremia. Urine cultures growing Amira albicans. Sacral pressure injury, left thigh pressure injury POA stage III to both. Wound VAC in place to sacral wound. Acute kidney injury acute tubular necrosis hemodynamic instability from infection. Improved. Altered mental status acute metabolic and toxic encephalopathy. Improved Neurogenic bladder and urostomy stoma.Strait cath stoma 3/4 times per day. History of Spina Bifidi and chiari malformation patient is bedbound at baseline Diabetes Mellitus type 2 Gastroesophageal reflux disease Hx of asthma with no acute exacerbation Hx of hydrocephalus and VA shunt Chronic kidney disease Anemia of chronic disease GI prophylaxis DVT prophylaxis Do Not Resuscitate/Do Not Intubate Hospital course This is a pleasant 58 year old female with medical history of spina bifida, asthma, diabetes mellitus , GERD, sleep apnea, chiari malformation. Patient comes to the hospital from the assisted with concern for altered mentation and low blood pressure down into the 70s systolic. Patient was admitted to the ICU with consults placed to pulmonary equal opportunity counselor and ID. Patient is bedbound at baseline; does have known sacral pressure injury as well as pressure injury to the left thigh. Patient was given fluid bolus and started on levophed pressor support. Patient has been started on IV meropenem with concern for UTI and does have history of ESBL. Chest x-ray reveals mild pulmonary vascular congestion. EKG reveals sinus tachycardia heart rate of [address] or T wave changes. Blood work reveals a white blood cell count of 8.1, hemoglobin 6.8, platelet count of 488, potassium of 5.6, BUN of 108, creatinine of 2.03, lactic acid of 0.7, troponin level is negative, urinalysis is significantly abnormal with a turbid appearance, large leukocyte Estrace, greater than 182 WBCs and few bacteria. Patient is not complaining of any chest pain or shortness of breath she is currently awake and alert and less confused her family is at the bedside. Her main complaint today is the pain she is having from the sacral wound. Payton finch is maintained on MS contin outpatient will need to be held secondary to the renal dysfunction. Blood cultures today have come back showing gram-positive cocci in chains as well as gram-positive cocci in clusters, Staphylococcus species, Streptococcus species, strep collected group B, MRSA are showing as positive. Preliminary wound culture of the sacral ulcer reveal few gram positive bacilli, few gram positive cocci, and few gram negative bacilli. Patient is not on combination of IV daptomycin, IV meropenem. 02/16/2024 Is evaluated in follow-up on the medical floor. She is more awake alert. Patient is off the pressor support and her blood pressure is maintaining in 120s to 130s systolic. Her creatinine has improved significantly and down to 1.15. White blood cell count is 4.0, hemoglobin 7.1, potassium 3.3 patient continues on a combination of IV daptomycin and IV meropenem. Her urine culture is negative, found to have MRSA bacteremia and this is likely from the sacral decubitus wound. Patient was seen in consultation by wound care and recommended for a wound VAC to the sacral decubitus ulcer. 02/17/2024 Evaluated in follow-up in the medical floor. She is concerned with not being able to straight cath her urostomy and worried about the backflow. There is significant sediment in the urine is a cloudy color. Her urine culture was found to be negative. We are waiting for repeat blood cultures so far pulmonary is negative she remains on IV daptomycin and IV meropenem. Wound VAC in place to the sacral ulcer. Once patient is medically ready she will discharge back to [facility]. Work today reveals a white blood cell count of 6.1, hemoglobin 7.5, sodium 133, BUN 78, creatinine 1.14, calcium 5.5. 02/18/2024 Patient evaluated today on the medical floor. She was strait cathed a few times through the urostomy and the urine is cloudy and turbid. We will send a urine culture from the stoma. Patient continues with wound VAC on the sacral ulcer having significant pain. And the MS Contin has been held for now as her blood pressure has been low. Renal function is slowly improving. Hgb 7.2, Sodium 131, BUN 69.5, creatinine 1.5, glucose 130, calcium 5.6, magnesium 1.4. Blood pressure 92/60. Blood culture showing MRA, Group B strep, Coagulase negative staph. Repeat blood culture pending. 02/19/2024 Patient is resting in the bed. Awake and alert. No acute distress. Currently on room air. Right nephrostomy bag is being changed today. Otherwise blood cultures growing MRSA and strep agalactiae and wound cultures growing Acinetobacter E. coli and Proteus. Patient is being continued on antibiotics meropenem and daptomycin. Patient is on IV hydration with normal saline at 100 cc/h. Laboratory data showed sodium 128 potassium 3.9 chloride 102 bicarb is 17 BUN 65 and creatinine 1.1, hemoglobin 7.7 and platelets 276 and WBC 7.65. Calcium 6.2. 02/20/2024 Patient is currently resting in the bed. Awake alert oriented x 3. Not requiring any oxygen supplementation. No complaints of chest pain or shortness of breath. Nephrostomy tube has good urine output. Laboratory data reviewed. Sodium 134 potassium 3.8 chloride 103 bicarb is 14.7 BUN 45.6 and creatinine 0.9 and blood sugar 123 and calcium 6.3. Patient currently on on antibiotics in the form of ceftriaxone and daptomycin. ID and urology is on board. 02/21/2024 Patient is resting in the bed. Awake alert and orient x 3. Currently on room air. Heart rate is in 90s. Tmax 99.6. Patient is on antibiotics ceftriaxone and daptomycin. Patient is also on Diflucan. ID and urology is on board. Good urine output. Creatinine level normalized. Patient is on IV hydration with normal saline at 75 cc/h. Calcium improved to 6.5. 02/22/2024 Patient is resting in the bed. Awake alert and oriented x 3. Bilateral lower extremity pain is controlled. Afebrile. On room air. No nausea vomiting. Tolerating oral diet. Urine culture from 02/18/2024 growing Amira albicans. Patient remains on antibiotics in the form of ceftriaxone and daptomycin. Also on Diflucan. ID is on board. Repeat urinalysis showed turbid with 2+ protein small blood large leukocyte esterase with elevated RBCs and WBCs. ID is on board. 02/23/2024 Patient is resting in bed. Awake alert and oriented x 3. No cough or sputum production. Bilateral wound dressing was done and vascular surgery is planning for debridement again tomorrow. Laboratory data showed sodium 134 potassium 4.2 chloride 112 bicarb 16 BUN 25 and creatinine 0.53 WBC 6.7 hemoglobin 7.0 and platelets 302 and blood sugar is controlled. 02/24/2024 Patient is resting in the bed. Awake alert and oriented x 2-3.. No complaints of chest pain or shortness of breath. No nausea or vomiting. Tolerating consistent carb diet. Blood sugar is controlled. Patient has been afebrile. Continued on antibiotics ceftriaxone and daptomycin. Laboratory data showed sodium 135 potassium 3.7 chloride 110 bicarb is 17.9 BUN 17.4 and creatinine 0.5 and blood sugar 97 and calcium 6.8. Patient will be discharged to rehab with antibiotic course of daptomycin and ceftriaxone for 4 weeks. Complete 7 days of Diflucan. PHYSICAL EXAMINATION: GENERAL: The patient is alert and oriented x2-3, not in any acute distress. Well developed, well nourished. HEENT: Pupils are round and equally reacting to light. EOMI. No scleral icterus. No conjunctival pallor. Normocephalic, atraumatic. No pharyngeal erythema. No thyromegaly. CARDIOVASCULAR: S1 and S2 present. No murmurs, rubs, or gallops. PULMONARY: Chest is clear to auscultation, no wheezing or crackles. ABDOMEN: Soft, nontender, nondistended, normoactive bowel sounds. No palpable organomegaly. MUSCULOSKELETAL: No joint swelling or deformity. EXTREMITIES: No cyanosis, clubbing, Mild pedal edema. NEUROLOGICAL: Gross neurological examination did not reveal any focal deficits. Diffuse weakness. SKIN: Sacral pressure injury. Vital Signs 02/24/24 02/24/24 02/24/24 07:43 08:18 13:32 Temperature 98.1 F 98.0 F Pulse Rate [ 85 85 77 Pulse Oximetery ] Respiratory 17 17 Rate Blood Pressure 119/68 100/64 [Left Arm] O2 Sat by Pulse 98 97 Oximetry Total time taken greater than 35 minutes including 18 minutes for counseling and coordination of care. Patient Condition at Discharge: Fair Plan - Discharge Summary New Discharge Prescriptions: New cefTRIAXone [Rocephin] 2 gm IVPB Q24H 28 Days #28 each Fluconazole [Diflucan] 100 mg PO DAILY 4 Days #4 tab DAPTOmycin [Cubicin] 450 mg IVPB Q24H 28 Days #28 each Continue allopurinoL [Zyloprim] 300 mg PO DAILY Calcium Carbonate 500 mg PO DAILY Cholestyramine (with Sugar) [Questran Packet] 4 gm PO TID PRN PRN Reason: BULK STOOL Menthol [Icy Hot] 2 patch TRANSDERM DAILY Magnesium Oxide [Mag-Ox] 400 mg PO DAILY Naloxone HCl 0.4 mg IM ONCE PRN PRN Reason: suspected opioid overdose Heparin Lock Flush Solution 10unit/Ml 50 units IV QMONTHLY Folic Acid 0.4 mg PO BID Multivitamins, Thera [Multivitamin (formulary)] 1 tab PO HS Ascorbic Acid [Vitamin C] 500 mg PO HS Famotidine [Pepcid] 20 mg PO BID@0700,1900 Ondansetron [Zofran] 4 mg PO Q6H PRN PRN Reason: Nausea And Vomiting Lidocaine Viscous 2% [Xylocaine Viscous] 5 ml PO Q4H PRN PRN Reason: Pain Thiamine [Vitamin B-1] 100 mg PO DAILY Sodium Chloride 0.9 % (Flush) [Aquastat (Flush)] 10 ml IV Q24H PRN PRN Reason: prior to heparin Heparin Lock Flush Solution 10unit/Ml 50 unit IV Q24H PRN PRN Reason: every unused lumen Saccharomyces Boulardii (Unknown Strength) 1 cap PO BID Sodium Chloride 0.9 % (Flush) [Aquastat (Flush)] 10 ml IV QMONTHLY Naloxone HCl [Narcan] 4 mg NASAL ONCE PRN PRN Reason: suspected opioid overdose Butalb/Acetaminophen/Caffeine [Fioricet 50-300-40 mg Capsule] 1 cap PO Q4HR PRN PRN Reason: Headache Darbepoetin Dino [Aranesp] 100 mcg SQ Q14D Ferrous Sulfate [Iron (65 MG Elemental)] 325 mg PO DAILY Menthol [Biofreeze] 1 applic TOPICAL TID@0700,1300,1900 Changed Torsemide [Demadex] 20 mg PO DAILY@0700 #0 HYDROcodone/APAP 5-325MG [[place] 5-325] 1 tab PO Q4H 3 Days #18 tab Discontinued Morphine Sulfate ER [Ms Contin] 15 mg PO DAILY@1500 #3 tab Discharge Medication List allopurinoL [Zyloprim] 300 mg PO DAILY 10/04/14 [History] Calcium Carbonate 500 mg PO DAILY 06/09/23 [History] Cholestyramine (with Sugar) [Questran Packet] 4 gm PO TID PRN 06/09/23 [History] Lidocaine Viscous 2% [Xylocaine Viscous] 5 ml PO Q4H PRN 06/09/23 [History] Magnesium Oxide [Mag-Ox] 400 mg PO DAILY 06/09/23 [History] Menthol [Icy Hot] 2 patch TRANSDERM DAILY 06/09/23 [History] Thiamine [Vitamin B-1] 100 mg PO DAILY 06/09/23 [History] Ascorbic Acid [Vitamin C] 500 mg PO HS 09/16/23 [History] Folic Acid 0.4 mg PO BID 09/16/23 [History] Heparin Lock Flush Solution 10unit/Ml 50 unit IV Q24H PRN 09/16/23 [History] Heparin Lock Flush Solution 10unit/Ml 50 units IV QMONTHLY 09/16/23 [History] Multivitamins, Thera [Multivitamin (formulary)] 1 tab PO HS 09/16/23 [History] Naloxone HCl 0.4 mg IM ONCE PRN 09/16/23 [History] Naloxone HCl [Narcan] 4 mg NASAL ONCE PRN 09/16/23 [History] Saccharomyces Boulardii (Unknown Strength) 1 cap PO BID 09/16/23 [History] Sodium Chloride 0.9 % (Flush) [Aquastat (Flush)] 10 ml IV Q24H PRN 09/16/23 [History] Sodium Chloride 0.9 % (Flush) [Aquastat (Flush)] 10 ml IV QMONTHLY 09/16/23 [History] Butalb/Acetaminophen/Caffeine [Fioricet 50-300-40 mg Capsule] 1 cap PO Q4HR PRN 02/14/24 [History] Darbepoetin Dino [Aranesp] 100 mcg SQ Q14D 02/14/24 [History] Famotidine [Pepcid] 20 mg PO BID@0700,1900 02/14/24 [History] Ferrous Sulfate [Iron (65 MG Elemental)] 325 mg PO DAILY 02/14/24 [History] Menthol [Biofreeze] 1 applic TOPICAL TID@0700,1300,1900 02/14/24 [History] Ondansetron [Zofran] 4 mg PO Q6H PRN 02/14/24 [History] DAPTOmycin [Cubicin] 450 mg IVPB Q24H 28 Days #28 each 02/24/24 [Rx] Fluconazole [Diflucan] 100 mg PO DAILY 4 Days #4 tab 02/24/24 [Rx] HYDROcodone/APAP 5-325MG [[place] 5-325] 1 tab PO Q4H 3 Days #18 tab 02/24/24 [Rx] Torsemide [Demadex] 20 mg PO DAILY@0700 #0 02/24/24 [Rx] cefTRIAXone [Rocephin] 2 gm IVPB Q24H 28 Days #28 each 02/24/24 [Rx] Follow up Appointment(s)/Referral(s): Hilaria Reeder DO [Primary Care Provider] - 1-2 days [facility] [NON-STAFF] - 1 Week Discharge Disposition: TRANSFER TO SNF/ECF
--- NOTE | 2024-02-24 15:43 | P.PN ---
Subjective Progress Note Date: 02/24/24 Principal diagnosis: Reason for follow-up sepsis UTI and pressure ulcer Patient is a 58-year-old female with a past medical history significant for diabetes mellitus reflux asthma spina bifida, this patient who is a bedbound and did have a sacral pressure ulcer with the previous episode of osteomyelitis patient has been brought into the hospital from the local residential after the patient was found to be lethargic mental status changes noticed to be septic require admission to the ICU blood cultures came back positive with MRSA. On today's visit that is 02/24/2024, Patient is afebrile this morning patient denies having any chest pain shortness of breath or cough, the patient is breathing comfortably and currently on room air, patient denies any abdominal pa in no diarrhea no nausea no vomiting, patient feeling better wants to go back to the residential. Patient did have a creatinine 0.5 blood culture repeat has been negative Objective - Vital Signs Vital signs: Vital Signs Temp 98.1 F 02/24/24 07:43 Pulse 85 02/24/24 08:18 Resp 17 02/24/24 07:43 BP 119/68 02/24/24 07:43 Pulse Ox 98 02/24/24 07:43 FiO2 Intake & Output 02/23/24 02/24/24 02/24/24 18:59 06:59 18:59 Intake Total 1000 Output Total 1000 Balance 1000 -1000 Intake: Intake, IV Titration 1000 Amount DAPTOmycin 450 mg In 50 Sodium Chloride 0.9% 50 ml @ 100 mls/hr IVPB Q24H [facility] Rx#:[id number] Sodium Chloride 0.9% 1, 900 000 ml @ 75 mls/hr IV . [id number] [facility] Rx#:[id number] cefTRIAXone 2 gm In 50 Sodium Chloride 0.9% 50 ml @ 100 mls/hr IVPB Q24H [facility] Rx#:[id number] Output: Urine 1000 urostomy 1000 Other: Voiding Method Ileal Conduit (Right) Ileal Conduit (Right) Ileal Conduit (Right) - Exam GENERAL DESCRIPTION: Middle-age female lying in bed in no distress RESPIRATORY SYSTEM: Unlabored breathing , decreased breath sounds at bases HEART: S1 S2 regular rate and rhythm , ABDOMEN: Soft , no tenderness EXTREMITIES: No edema feet - Labs CBC & Chem 7: 02/23/24 07:02 02/24/24 04:28 Labs: Abnormal Lab Results - Last 24 Hours (Table) 02/23/24 02/23/24 02/24/24 Range/Units 17:00 21:19 04:28 Chloride 110 H (96-109) mmol/L Carbon Dioxide 17.9 L (21.6-31.8) mmol/L Creatinine 0.5 L (0.6-1.5) mg/dL BUN/Creatinine Ratio 34.80 H (12.00-20.00) Ratio POC Glucose (mg/dL) 123 H 150 H (70-110) mg/dL Calcium 6.8 L (8.7-10.3) mg/dL 02/24/24 Range/Units 11:37 Chloride (96-109) mmol/L Carbon Dioxide (21.6-31.8) mmol/L Creatinine (0.6-1.5) mg/dL BUN/Creatinine Ratio (12.00-20.00) Ratio POC Glucose (mg/dL) 125 H (70-110) mg/dL Calcium (8.7-10.3) mg/dL Microbiology - Last 24 Hours (Table) 02/22/24 16:31 Urine Culture - Final Urine,Voided Assessment and Plan (1) Catheter-associated urinary tract infection Current Visit: Yes Status: Acute Code(s): T83.511A - I/I REACT D/T INDWELLING URETHRAL CATHETER, INIT; N39.0 - URINARY TRACT INFECTION, SITE NOT SPECIFIED SNOMED Code(s): 449260243 (2) Allergy to multiple antibiotics Current Visit: No Status: Acute Code(s): Z88.1 - ALLERGY STATUS TO OTHER ANTIBIOTIC AGENTS SNOMED Code(s): 748217023 (3) Pressure injury of sacral region, stage 4 Current Visit: No Status: Acute Code(s): L89.154 - PRESSURE ULCER OF SACRAL REGION, STAGE 4 SNOMED Code(s): 93035219309638 (4) Sepsis Current Visit: No Status: Acute Code(s): A41.9 - SEPSIS, UNSPECIFIED ORGANISM SNOMED Code(s): 56477599 (5) MRSA bacteremia Current Visit: Yes Status: Acute Code(s): R78.81 - BACTEREMIA; B95.62 - METHICILLIN RESIS STAPH INFCT CAUSING DISEASES CLASSD [facility] SNOMED Code(s): 14426341996204550 Plan: 1patient presented to hospital with sepsis in this patient who did have a hypotension tachycardia likely multifactorial more likely related to the catheter associated tract infection as the patient has significantly positive UA and a suprapubic catheter patient also have a pressure ulcer to the sacral area and the right posterior thigh but no significant slough tissue was noticed 2-patient with multiple antibiotic ALLERGIES that would limit the number of antibiotic safe to use 3--local wound care with the Aquacel silver dressing change every 48 hours 4patient did have a positive blood culture with MRSA, repeat blood cultures so far negative local wound culture did grew drug-resistant Acinetobacter, E. coli Proteus and strep 5patient cloudy urine urinary tract infection urine with Amira patient has received adequate Diflucan repeat urine culture negative 6patient to continue with the daptomycin for the MRSA bacteremia along with Rocephin to cover for the pathogen recovered from her wound, 7-plan is for weeks of IV IV daptomycin and Rocephin on discharge discussed with the [employer]PER[employer]OR for admitting team working on discharge Dictation was produced using [employer] dictation software. please excuse any grammatical, word or spelling errors. Time with Patient: Less than 30
[2024-02-24 16:29] LABS: Glucose,Whole Blood 141 mg/dL (70-110)
[2024-02-24] MEDS: POTASSIUM CHLORIDE ER 20 MEQ TAB.ER PO STA (16:56)
[2024-02-24] MEDS: DARBEPOETIN ALFA 100MCG/0.5ML SYRINGE SQ SCH (17:08)
== END 2024-02-24 17:32 | DRG 871 ==
LOC: EC 13:13 → 2SICU 15:12 → 4SSUR 02-16 16:06
PROVIDERS: ADMIT Internal Medicine; ATTEND Internal Medicine
PROC: 3E033XZ Introduction of Vasopressor into Peripheral Vein, Percutaneous Approach (ICD-10-PCS; principal; 2024-02-14)
PROC: 02HV33Z Insertion of Infusion Device into Superior Vena Cava, Percutaneous Approach (ICD-10-PCS; 2024-02-14)
PROC: B548ZZA Ultrasonography of Superior Vena Cava, Guidance (ICD-10-PCS; 2024-02-14)
DX: A41.02 Sepsis due to Methicillin resistant Staphylococcus aureus (principal); G92.9 Unspecified toxic encephalopathy; L89.893 Pressure ulcer of other site, stage 3; N17.0 Acute kidney failure with tubular necrosis; R65.21 Severe sepsis with septic shock; L89.323 Pressure ulcer of left buttock, stage 3; L89.153 Pressure ulcer of sacral region, stage 3; G82.20 Paraplegia, unspecified; Q07.03 Arnold-Chiari syndrome with spina bifida and hydrocephalus; E87.20 Acidosis, unspecified; Z66 Do not resuscitate; A40.1 Sepsis due to streptococcus, group B; D63.1 Anemia in chronic kidney disease; E11.22 Type 2 diabetes mellitus with diabetic chronic kidney disease; N18.9 Chronic kidney disease, unspecified; E66.9 Obesity, unspecified; J45.909 Unspecified asthma, uncomplicated; Z68.31 Body mass index [BMI] 31.0-31.9, adult; Z93.6 Other artificial openings of urinary tract status; Z79.4 Long term (current) use of insulin; K21.9 Gastro-esophageal reflux disease without esophagitis; G47.30 Sleep apnea, unspecified; Z74.01 Bed confinement status; Z98.2 Presence of cerebrospinal fluid drainage device; N31.9 Neuromuscular dysfunction of bladder, unspecified; R13.10 Dysphagia, unspecified; E87.5 Hyperkalemia; Z79.899 Other long term (current) drug therapy; Z87.440 Personal history of urinary (tract) infections; Z87.442 Personal history of urinary calculi; Z88.0 Allergy status to penicillin; Z88.2 Allergy status to sulfonamides; Z88.8 Allergy status to other drugs, medicaments and biological substances; Z88.1 Allergy status to other antibiotic agents; Z91.040 Latex allergy status
CPT/HCPCS: 36415; 71045; 80048; 80053; 81001; 83036; 83605; 83735; 84145; 84443; 84484; 85025; 85027; 85610; 85652; 85730; 86140; 86850; 86900; 86901; 86920; 87040; 87070; 87075; 87077; 87086; 87186; 87205; 93005; 93306; 96365; 96366; 96368; 99291; 99292